=== PATIENT | male | born 1960 | race Caucasian/White ===

== ENCOUNTER 2018-03-29 18:16 | Inpatient (IN) | payer BC ==
[~2018-03-29] VITALS: Ht 175.3 cm; Wt 94.4 kg
[~2018-03-29 18:16] MED LIST: NO HOME MEDS
[2018-03-29] MEDS ORDERED: normal saline 1000ML IV soln IVB ONE (19:50)
[2018-03-29 20:35] LABS: ALANINE AMINOTRANSFERASE 21 U/L (12-78); ALBUMIN 2.5 G/DL (3.4-5.0); ALBUMIN/GLOBULIN RATIO 0.7 (1.1-1.5); ALKALINE PHOSPHATASE 100 IU/L (46-116); ANION GAP 5 (8-16); ASPARTATE AMINO TRANSFERASE 19 U/L (10-37); BASOPHILS # (AUTO) 0.1 X10'3 (0-0.2); BASOPHILS % (AUTO) 0.5 % (0-1); BILIRUBIN,TOTAL 0.1 MG/DL (0.1-1.0); BLOOD UREA NITROGEN 44 MG/DL (7-18); BUN/CREATININE RATIO 21.7 (5.4-32.0); CALCIUM 8.1 MG/DL (8.5-10.1); CHLORIDE 106 MMOL/L (99-107); CREATININE 2.03 MG/DL (0.60-1.10); EOSINOPHILS # (AUTO) 0.4 X10'3 (0-0.9); EOSINOPHILS % (AUTO) 3.5 % (0-6); GLUCOSE 99 MG/DL (70-104); HEMATOCRIT 22.5 % (42.0-52.0); HEMOGLOBIN 7.3 g/dl (14.0-17.9); LYMPHOCYTES # (AUTO) 1.3 X10'3 (1.1-4.8); LYMPHOCYTES % (AUTO) 11.1 % (21-51); MEAN CORPUSCULAR HEMOGLOBIN 26.6 PG (27.0-31.0); MEAN CORPUSCULAR HGB CONC 32.4 % (33.0-36.5); MEAN CORPUSCULAR VOLUME 82.2 FL (78-98); MEAN PLATELET VOLUME 7.2 FL (7.4-10.4); MONOCYTES # (AUTO) 0.7 X10'3 (0-0.9); NEUTROPHILS # (AUTO) 9.2 X10'3 (1.8-7.7); NEUTROPHILS % (AUTO) 78.9 % (42-75); PLATELET COUNT 416 X10'3 (140-440); POTASSIUM 4.9 MMOL/L (3.5-5.1); RED BLOOD COUNT 2.74 X10'6 (4.70-6.10); RED CELL DISTRIBUTION WIDTH 23.8 % (11.5-14.5); SODIUM 139 MMOL/L (135-145); TOTAL CARBON DIOXIDE 28.4 MMOL/L (24-32); TOTAL PROTEIN 6.1 G/DL (6.4-8.2); WHITE BLOOD COUNT 11.7 X10'3 (4.5-11.0); eGFR 34 ML/MIN
[2018-03-29] MEDS ORDERED: magnesium hydroxide 30ml (MOM) UD suspension PO PRN (21:30)
[2018-03-29] MEDS ORDERED: mag hydrox/Alum hydrox/simeth 30ml oral suspension PO PRN (21:30)
[2018-03-29] MEDS ORDERED: ondansetron/PF 4mg/2ml inj IV PRN (21:30)
[2018-03-29] MEDS ORDERED: oxyCODONE IR 5mg (immed. release) tablet PO PRN (21:35)
[2018-03-29] MEDS ORDERED: MV-M1TAB2 PO (21:41)
[2018-03-29] MEDS ORDERED: ASCO125T PO (21:41)
[2018-03-29] MEDS ORDERED: TEMA15CA PO (21:41)
[2018-03-29] MEDS ORDERED: APIX5TAB3 PO (21:41)
[2018-03-29] MEDS ORDERED: SULF1TAB49 PO (21:41)
[2018-03-29] MEDS ORDERED: FERR325T28 PO (21:41)
[2018-03-29] MEDS ORDERED: temazepam 15mg capsule PO PRN (21:55)
[2018-03-29] MEDS: normal saline 1000ml 1,000 ML IV SCH (23:03)
[2018-03-30] VITALS (11 sets, daily range): BP systolic 98–121; BP diastolic 53–76
[2018-03-30 05:24] LABS: ANISOCYTOSIS 3+; PLATELET ESTIMATE NORMAL; TOTAL CELLS COUNTED 100
[2018-03-30 05:25] LABS: ELLIPTOCYTES 1+; TEAR DROP CELLS FEW
[2018-03-30 06:12] LABS: BASOPHILS # (AUTO) 0.1 X10'3 (0-0.2); BASOPHILS % (AUTO) 0.6 % (0-1); EOSINOPHILS # (AUTO) 0.4 X10'3 (0-0.9); EOSINOPHILS % (AUTO) 3.9 % (0-6); LYMPHOCYTES # (AUTO) 1.4 X10'3 (1.1-4.8); LYMPHOCYTES % (AUTO) 13.6 % (21-51); MEAN CORPUSCULAR HEMOGLOBIN 26.6 PG (27.0-31.0); MEAN CORPUSCULAR HGB CONC 32.2 % (33.0-36.5); MEAN CORPUSCULAR VOLUME 82.4 FL (78-98); MEAN PLATELET VOLUME 7.1 FL (7.4-10.4); MONOCYTES # (AUTO) 0.7 X10'3 (0-0.9); MONOCYTES % (AUTO) 6.4 % (2-12); NEUTROPHILS # (AUTO) 7.8 X10'3 (1.8-7.7); NEUTROPHILS % (AUTO) 75.5 % (42-75); PLATELET COUNT 394 X10'3 (140-440); RED BLOOD COUNT 2.63 X10'6 (4.70-6.10); RED CELL DISTRIBUTION WIDTH 24.2 % (11.5-14.5); WHITE BLOOD COUNT 10.3 X10'3 (4.5-11.0)
[2018-03-30 06:29] LABS: ALANINE AMINOTRANSFERASE 24 U/L (12-78); ALBUMIN 2.4 G/DL (3.4-5.0); ALBUMIN/GLOBULIN RATIO 0.7 (1.1-1.5); ALKALINE PHOSPHATASE 86 IU/L (46-116); ANION GAP 8 (8-16); ASPARTATE AMINO TRANSFERASE 20 U/L (10-37); BILIRUBIN,TOTAL 0.3 MG/DL (0.1-1.0); BLOOD UREA NITROGEN 38 MG/DL (7-18); BUN/CREATININE RATIO 20.2 (5.4-32.0); CALCIUM 8.3 MG/DL (8.5-10.1); CHLORIDE 109 MMOL/L (99-107); CREATININE 1.88 MG/DL (0.60-1.10); GLUCOSE 88 MG/DL (70-104); POTASSIUM 4.2 MMOL/L (3.5-5.1); SODIUM 144 MMOL/L (135-145); TOTAL CARBON DIOXIDE 27.1 MMOL/L (24-32); TOTAL PROTEIN 5.8 G/DL (6.4-8.2); eGFR 37 ML/MIN
[2018-03-30 06:30] LABS: HEMATOCRIT 21.7 % (42.0-52.0)
[2018-03-30] MEDS: sulfamethoxazole/trimethoprim DS (800/160mg) tablet PO SCH ×2 (16:22→19:10)
[2018-03-30] MEDS: multivitamins, therapeutics tablet PO SCH (16:22)
[2018-03-30] MEDS: ascorbic acid 500mg tablet PO SCH (16:22)
[2018-03-30] MEDS: ferrous sulfate 325mg tablet PO SCH ×2 (16:22→17:30)
[2018-03-30] MEDS: normal saline 1000ml 1,000 ML IV SCH (16:23)
[2018-03-30] MEDS: lactobacillus rhamnosus 10,000 MMU CELLS/CAPSULE PO SCH (19:12)
[2018-03-30 19:35] LABS: CLARITY,URINE CLEAR (Clear); COLOR,URINE YELLOW (Yellow); GLUCOSE, URINE NEGATIVE (Neg); KETONES,URINE NEGATIVE (Neg); LEUKOCYTE ESTERASE ,URINE NEGATIVE (Neg); NITRITES, URINE NEGATIVE (Neg); OCCULT BLOOD,URINE SMALL (Neg); PH,URINE 5.5 (4.8-8.0); PROTEIN,URINE NEGATIVE (Neg); UROBILINOGEN,URINE 0.2 E.U/dL (0.2-1.0)
[2018-03-30 19:36] LABS: UA COLLECTION TYPE CLN CATCH MIDSTREAM
[2018-03-30 19:50] LABS: BACTERIA,URINE NONE SEEN /HPF (Neg); MUCUS STRANDS FEW /LPF (Neg); RBC,URINE 0-2 /HPF (0-2); SQUAMOUS EPITHELIAL CELL,UR FEW /LPF (FEW); WBC,URINE 0-4 /HPF (0-4)
[2018-03-31 06:31] LABS: ALANINE AMINOTRANSFERASE 22 U/L (12-78); ALBUMIN 2.4 G/DL (3.4-5.0); ALBUMIN/GLOBULIN RATIO 0.7 (1.1-1.5); ALKALINE PHOSPHATASE 83 IU/L (46-116); ANION GAP 5 (8-16); ASPARTATE AMINO TRANSFERASE 17 U/L (10-37); BILIRUBIN,TOTAL 0.3 MG/DL (0.1-1.0); BLOOD UREA NITROGEN 29 MG/DL (7-18); BUN/CREATININE RATIO 17.5 (5.4-32.0); CHLORIDE 109 MMOL/L (99-107); CREATININE 1.66 MG/DL (0.60-1.10); GLUCOSE 103 MG/DL (70-104); POTASSIUM 4.2 MMOL/L (3.5-5.1); SODIUM 142 MMOL/L (135-145); TOTAL CARBON DIOXIDE 27.7 MMOL/L (24-32); eGFR 43 ML/MIN
[2018-03-31 06:39] LABS: BASOPHILS # (AUTO) 0.1 X10'3 (0-0.2); BASOPHILS % (AUTO) 0.6 % (0-1); EOSINOPHILS # (AUTO) 0.4 X10'3 (0-0.9); EOSINOPHILS % (AUTO) 4.2 % (0-6); HEMATOCRIT 27.2 % (42.0-52.0); HEMOGLOBIN 8.7 g/dl (14.0-17.9); LYMPHOCYTES # (AUTO) 1.1 X10'3 (1.1-4.8); LYMPHOCYTES % (AUTO) 11.5 % (21-51); MEAN CORPUSCULAR HEMOGLOBIN 27.1 PG (27.0-31.0); MEAN CORPUSCULAR HGB CONC 32.1 % (33.0-36.5); MEAN CORPUSCULAR VOLUME 84.3 FL (78-98); MEAN PLATELET VOLUME 7.6 FL (7.4-10.4); MONOCYTES # (AUTO) 0.6 X10'3 (0-0.9); MONOCYTES % (AUTO) 6.5 % (2-12); NEUTROPHILS # (AUTO) 7.7 X10'3 (1.8-7.7); NEUTROPHILS % (AUTO) 77.2 % (42-75); PLATELET COUNT 375 X10'3 (140-440); RED BLOOD COUNT 3.23 X10'6 (4.70-6.10); WHITE BLOOD COUNT 9.9 X10'3 (4.5-11.0)
[2018-03-31] MEDS: normal saline 1000ml 1,000 ML IV SCH (06:50)
[2018-03-31] MEDS: ferrous sulfate 325mg tablet PO SCH ×2 (09:31→17:30)
[2018-03-31] MEDS: lactobacillus rhamnosus 10,000 MMU CELLS/CAPSULE PO SCH ×2 (09:31→20:30)
[2018-03-31] MEDS: multivitamins, therapeutics tablet PO SCH (09:31)
[2018-03-31] MEDS: sulfamethoxazole/trimethoprim DS (800/160mg) tablet PO SCH ×2 (09:31→20:30)
[2018-03-31] MEDS: levoFLOXACIN-Levaquin 250mg/D5 50 ML IV SCH (09:32)
[2018-03-31] MEDS: ascorbic acid 500mg tablet PO SCH (09:33)
[2018-03-31] MEDS: proCHLORperazine 10 MG/2 ml inj IV PRN ×2 (15:51→21:33)
[2018-03-31 18:00] VITALS: BP 106/67
[2018-03-31 22:00] VITALS: BP 107/63
[2018-04-01] MEDS: normal saline 1000ml 1,000 ML IV SCH (02:14)
[2018-04-01 05:41] LABS: BASOPHILS % (AUTO) 0.6 % (0-1); EOSINOPHILS # (AUTO) 0.3 X10'3 (0-0.9); EOSINOPHILS % (AUTO) 3.5 % (0-6); HEMATOCRIT 26.1 % (42.0-52.0); HEMOGLOBIN 8.6 g/dl (14.0-17.9); LYMPHOCYTES # (AUTO) 1.2 X10'3 (1.1-4.8); LYMPHOCYTES % (AUTO) 13.9 % (21-51); MEAN CORPUSCULAR HEMOGLOBIN 27.6 PG (27.0-31.0); MEAN CORPUSCULAR HGB CONC 32.8 % (33.0-36.5); MEAN CORPUSCULAR VOLUME 84.3 FL (78-98); MEAN PLATELET VOLUME 7.1 FL (7.4-10.4); MONOCYTES # (AUTO) 0.6 X10'3 (0-0.9); MONOCYTES % (AUTO) 7.4 % (2-12); NEUTROPHILS # (AUTO) 6.3 X10'3 (1.8-7.7); NEUTROPHILS % (AUTO) 74.6 % (42-75); PLATELET COUNT 371 X10'3 (140-440); RED CELL DISTRIBUTION WIDTH 21.2 % (11.5-14.5); WHITE BLOOD COUNT 8.5 X10'3 (4.5-11.0)
[2018-04-01 05:49] LABS: ALANINE AMINOTRANSFERASE 20 U/L (12-78); ALBUMIN 2.5 G/DL (3.4-5.0); ALBUMIN/GLOBULIN RATIO 0.7 (1.1-1.5); ALKALINE PHOSPHATASE 73 IU/L (46-116); ANION GAP 8 (8-16); ASPARTATE AMINO TRANSFERASE 17 U/L (10-37); BILIRUBIN,TOTAL 0.2 MG/DL (0.1-1.0); BLOOD UREA NITROGEN 22 MG/DL (7-18); BUN/CREATININE RATIO 13.1 (5.4-32.0); CHLORIDE 109 MMOL/L (99-107); CREATININE 1.68 MG/DL (0.60-1.10); GLUCOSE 97 MG/DL (70-104); POTASSIUM 4.1 MMOL/L (3.5-5.1); SODIUM 144 MMOL/L (135-145); TOTAL CARBON DIOXIDE 27.3 MMOL/L (24-32); eGFR 43 ML/MIN
[2018-04-01 06:00] VITALS: BP 108/73
[2018-04-01] MEDS: lactobacillus rhamnosus 10,000 MMU CELLS/CAPSULE PO SCH (08:00)
[2018-04-01] MEDS: levoFLOXACIN-Levaquin 250mg/D5 50 ML IV SCH (09:02)
[2018-04-01] MEDS: multivitamins, therapeutics tablet PO SCH (09:02)
[2018-04-01] MEDS: ascorbic acid 500mg tablet PO SCH (09:03)
[2018-04-01] MEDS: sulfamethoxazole/trimethoprim DS (800/160mg) tablet PO SCH (09:03)
[2018-04-01] MEDS: ferrous sulfate 325mg tablet PO SCH (09:03)
[2018-04-01 10:00] VITALS: BP 116/65
== END 2018-04-01 13:45 | disposition home health service (06) | DRG 603 ==
LOC: ER 18:17 → ED HOLD 21:30 → ORTHO 4S 03-30 08:00
PROVIDERS: ADMIT Internal Medicine; ATTEND Family Medicine
PROC: 30233N1 Transfusion of Nonautologous Red Blood Cells into Peripheral Vein, Percutaneous Approach (ICD-10-PCS; principal; 2018-03-30)
DX: L03.317 Cellulitis of buttock (principal); D64.9 Anemia, unspecified; E86.0 Dehydration; I12.9 Hypertensive chronic kidney disease with stage 1 through stage 4 chronic kidney disease, or unspecified chronic kidney disease; N18.9 Chronic kidney disease, unspecified; Z86.718 Personal history of other venous thrombosis and embolism; Z88.6 Allergy status to analgesic agent; Z88.8 Allergy status to other drugs, medicaments and biological substances; Z88.7 Allergy status to serum and vaccine; Z88.0 Allergy status to penicillin; Z93.3 Colostomy status; Z79.899 Other long term (current) drug therapy; Z79.01 Long term (current) use of anticoagulants; Z79.82 Long term (current) use of aspirin
CPT/HCPCS: 36415; 72192; 80053; 81001; 85025; 85651; 86140; 86885; 86900; 86901; 86920; 87070; 96360; 96361; 99285; A6253; A6449; J0780; J1956; J2405; J7030; P9016

== ENCOUNTER 2018-12-23 09:54 | Emergency (ER) | payer BC, OTHER ==
[~2018-12-23] VITALS: Ht 175.3 cm; Wt 113.6 kg
[~2018-12-23 09:54] MED LIST changes: +APIX5TAB3 PO; +ASCO125T PO; +FERR325T28 PO; +MV-M1TAB2 PO; -NO HOME MEDS; +TEMA15CA PO
[2018-12-23 10:03] VITALS: BP 166/98
[2018-12-23] MEDS ORDERED: orphenadrine citrate 60mg/2ml inj. IM ONE (11:35)
[2018-12-23] MEDS ORDERED: ketorolac tromethamine 15mg/ml inj. IM ONE (11:35)
[2018-12-23] MEDS ORDERED: IBUP-1985 PO (11:39)
[2018-12-23] MEDS ORDERED: METH-360 PO (11:39)
== END 2018-12-23 12:13 | disposition home or self-care (01) ==
LOC: ER 09:54
DX: S29.012A Strain of muscle and tendon of back wall of thorax, initial encounter (principal); M79.644 Pain in right finger(s); I10 Essential (primary) hypertension; Z88.1 Allergy status to other antibiotic agents; Z88.0 Allergy status to penicillin; Z88.5 Allergy status to narcotic agent; Z88.6 Allergy status to analgesic agent; Z88.8 Allergy status to other drugs, medicaments and biological substances; Z79.899 Other long term (current) drug therapy; W07.XXXA Fall from chair, initial encounter; Y93.89 Activity, other specified; Y92.89 Other specified places as the place of occurrence of the external cause; Y99.8 Other external cause status
CPT/HCPCS: 96372; 99284; J1885; J2360

== ENCOUNTER 2020-03-06 14:57 | Inpatient (IN) | payer BC ==
[~2020-03-06] VITALS: Ht 175.3 cm; Wt 119.2 kg
[~2020-03-06 14:57] MED LIST changes: -APIX5TAB3 PO; -ASCO125T PO; +CARV25TA2 PO; -FERR325T28 PO; +LISI-600 PO; +MULT1TAB74 PO; -MV-M1TAB2 PO; -TEMA15CA PO
[2020-03-06 16:32] LABS: BASOPHILS # (AUTO) 0.1 X10'3 (0-0.2); HEMATOCRIT 31.5 % (42.0-52.0); HEMOGLOBIN 9.9 g/dl (14.0-17.9); MEAN CORPUSCULAR HEMOGLOBIN 22.3 PG (27.0-31.0); MEAN PLATELET VOLUME 6.6 FL (7.4-10.4); NEUTROPHILS # (AUTO) 13.4 X10'3 (1.8-7.7)
[2020-03-06 16:33] LABS: ALANINE AMINOTRANSFERASE 7 U/L (12-78); ALBUMIN 2.3 G/DL (3.4-5.0); ALBUMIN/GLOBULIN RATIO 0.4 (1.1-1.5); ALKALINE PHOSPHATASE 98 IU/L (46-116); ANION GAP 27 (8-16); ASPARTATE AMINO TRANSFERASE 6 U/L (10-37); BASOPHILS % (AUTO) 0.5 % (0-1); BILIRUBIN,TOTAL 0.3 MG/DL (0.1-1.0); BLOOD UREA NITROGEN 110 MG/DL (7-18); BUN/CREATININE RATIO 6.2 (5.4-32.0); CALCIUM 8.3 MG/DL (8.5-10.1); CHLORIDE 94 MMOL/L (99-107); CREATININE 17.79 MG/DL (0.60-1.10); EOSINOPHILS # (AUTO) 0.1 X10'3 (0-0.9); EOSINOPHILS % (AUTO) 0.7 % (0-6); GLUCOSE 139 MG/DL (70-104); LYMPHOCYTES # (AUTO) 1.5 X10'3 (1.1-4.8); LYMPHOCYTES % (AUTO) 9.4 % (21-51); MEAN CORPUSCULAR HGB CONC 31.3 g/dL (33.0-36.5); MEAN CORPUSCULAR VOLUME 71.3 FL (78-98); MONOCYTES % (AUTO) 6.4 % (2-12); PLATELET COUNT 626 X10'3 (140-440); POTASSIUM 3.2 MMOL/L (3.5-5.1); RED BLOOD COUNT 4.42 X10'6 (4.70-6.10); RED CELL DISTRIBUTION WIDTH 22.7 % (11.5-14.5); SODIUM 135 MMOL/L (135-145); TOTAL PROTEIN 8.3 G/DL (6.4-8.2); WHITE BLOOD COUNT 16.2 X10'3 (4.5-11.0); eGFR 3 ML/MIN
[2020-03-06 16:35] LABS: TOTAL CARBON DIOXIDE 14.1 MMOL/L (24-32)
[2020-03-06 16:54] LABS: ANISOCYTOSIS 3+; ELLIPTOCYTES FEW; HYPOCHROMASIA 1+; MICROCYTOSIS 1+; PLATELET ESTIMATE INCREASED; POLYCHROMASIA FEW; TEAR DROP CELLS FEW
[2020-03-06 16:55] LABS: BURR CELLS FEW
[2020-03-06] MEDS ORDERED: MEROPENEM 1GM/NS 50ML IVPB 50 ML IV STA (16:57)
[2020-03-06] MEDS ORDERED: normal saline 1000ML IV soln IV ONE (17:00)
[2020-03-06] MEDS ORDERED: vancomycin/NS 1 GM ADD-VANTAGE 250 ML IV ONE (17:00)
[2020-03-06] MEDS ORDERED: diatr meglu/diatrizoate 30ml oral sol.-(3 dose) bottle ONE (17:00)
[2020-03-06 18:50] LABS: ABG BASE EXCESS -16.2 mmol/L (-2.0-3.0); ABG HCO3 10.8 mmol/L (22.0-26.0); ABG OXYGEN SATURATION 93.7 % (95-98); ABG PCO2 (T) 29.5 mmHg (35.0-45.0); ABG PH (T) 7.181 (7.350-7.450); ABG PO2 (T) 85.2 mmHg (83-108); FCOHb 0.3 % (0.5-1.5); FMetHb 0.3 % (0.3-1.12); FO2Hb 93.1 % (94-100); PATIENT TEMPERATURE 36.8; TOTAL HEMOGLOBIN 9.2 G/dl (14.0-17.9)
[2020-03-06] MEDS ORDERED: CARV6.253 PO (19:30)
[2020-03-06 20:30] LABS: LACTATE DEHYDROGENASE 102 U/L (85-227)
[2020-03-06] MEDS ORDERED: ondansetron/PF 4mg/2ml inj IV ONE (21:05)
[2020-03-06] MEDS ORDERED: LIDOcaine 2% 10ml TOPICAL JELLY (Urojet) TP ONE (21:25)
[2020-03-06] MEDS ORDERED: acetaminophen 325mg tablet PO PRN (21:25)
[2020-03-06 21:28] LABS: CLARITY,URINE CLOUDY (Clear); COLOR,URINE YELLOW (Yellow); GLUCOSE, URINE NEGATIVE (Neg); KETONES,URINE TRACE mg/dl (Neg); LEUKOCYTE ESTERASE ,URINE TRACE (Neg); NITRITES, URINE NEGATIVE (Neg); OCCULT BLOOD,URINE LARGE (Neg); PROTEIN,URINE 100 mg/dl (Neg); UROBILINOGEN,URINE 0.2 E.U/dL (0.2-1.0)
[2020-03-06 21:29] LABS: UA COLLECTION TYPE FOLEY CATH
[2020-03-06 21:34] LABS: AMORPHOUS URATES 1+; BACTERIA,URINE FEW /HPF (Neg); RBC,URINE 50-100 /HPF (0-2); SQUAMOUS EPITHELIAL CELL,UR FEW /LPF (FEW); WBC,URINE 0-4 /HPF (0-4)
[2020-03-06] MEDS: sodium bicarbonate (8.4%) inj. 75 MEQ in dextrose 5% water 500ml 500 ML IV SCH (22:02)
[2020-03-06 22:07] LABS: ALBUMIN 1.9 G/DL (3.4-5.0); ALBUMIN/GLOBULIN RATIO 0.4 (1.1-1.5); ALKALINE PHOSPHATASE 87 IU/L (46-116); ANION GAP 22 (8-16); ASPARTATE AMINO TRANSFERASE 5 U/L (10-37); BILIRUBIN,TOTAL 0.2 MG/DL (0.1-1.0); BLOOD UREA NITROGEN 98 MG/DL (7-18); BUN/CREATININE RATIO 6.3 (5.4-32.0); CALCIUM 7.3 MG/DL (8.5-10.1); CHLORIDE 101 MMOL/L (99-107); CREATININE 15.48 MG/DL (0.60-1.10); GLUCOSE 110 MG/DL (70-104); POTASSIUM 3.2 MMOL/L (3.5-5.1); SODIUM 138 MMOL/L (135-145); TOTAL CARBON DIOXIDE 15.1 MMOL/L (24-32); TOTAL PROTEIN 7.1 G/DL (6.4-8.2); eGFR 3 ML/MIN
[2020-03-06 22:09] LABS: ALANINE AMINOTRANSFERASE < 6 U/L (12-78)
--- NOTE | 2020-03-06 22:11 | NUR ---
Patient in room ED 1. I have received report from anneliese frank and had the opportunity to ask questions and assume patient care.
--- NOTE | 2020-03-06 22:45 | NUR ---
pt transferred to be 2007. pt is A&O x 4.pt reports multiple bouts of diarrhea. pt oriented to bed, call light, and tv. pt verbalised understanding. pt educated on fall risk prevention and was instructed to press the call button if he needs to get out of bed. pt verbalized understanding. pt reported that he would like his wallet and keys in the safe. admitting contacted.
[2020-03-06 23:00] VITALS: BP 80/55
--- NOTE | 2020-03-06 23:00 | NUR ---
pt has stooled 3 times in 15 min. stool sample taken. pt noncompliant with calling before getting up to the commode. reeducated bronc buster don't fall policy. pt states he's not going to fall however pt bp is low. service captain martin notified of low bp- orders received.
[2020-03-06] MEDS ORDERED: albumin (Human) 5% 250ml 250 ML IV ONE (23:40)
[2020-03-07] VITALS (24 sets, daily range): BP systolic 77–148; BP diastolic 33–80
[2020-03-07 00:13] LABS: TOTAL PROTEIN,URINE RANDOM 317.8 MG/DL
--- NOTE | 2020-03-07 00:23 | NUR ---
pt remains noncompliant with not calling before getting out of bed. sitter now at bedside
[2020-03-07] MEDS ORDERED: normal saline 1000ml 1,000 ML IVB ONE (00:31)
[2020-03-07 00:44] LABS: UA EOSINOPHILS NO EOS /HPF
[2020-03-07] MEDS: metroNIDAZOLE-Flagyl 500mg/NS 100 ML IV SCH ×4 (00:56→23:17)
[2020-03-07] MEDS: sodium bicarbonate (8.4%) inj. 75 MEQ in dextrose 5% water 500ml 500 ML IV SCH ×2 (01:05→04:03)
[2020-03-07] MEDS ORDERED: hydrocortisone sod succ/PF 100mg/2ml inj. IV ONE (01:25)
[2020-03-07] MEDS ORDERED: albumin (Human) 5% 250ml 500 ML IV ONE (01:46)
[2020-03-07] MEDS ORDERED: albumin (Human) 5% 250ml 250 ML IV ONE ×2 (01:50)
[2020-03-07 02:48] LABS: OCCULT BLOOD STOOL NEGATIVE (Neg)
[2020-03-07] MEDS ORDERED: normal saline 1000ml 1,000 ML IV ONE (04:05)
[2020-03-07] MEDS ORDERED: normal saline 500ml IV soln 1,000 ML IV ONE (04:15)
[2020-03-07 05:08] LABS: BASOPHILS % (AUTO) 0.2 % (0-1); EOSINOPHILS % (AUTO) 0.4 % (0-6); LYMPHOCYTES # (AUTO) 0.4 X10'3 (1.1-4.8); LYMPHOCYTES % (AUTO) 3.8 % (21-51); MEAN CORPUSCULAR HEMOGLOBIN 22.4 PG (27.0-31.0); MEAN CORPUSCULAR VOLUME 72.2 FL (78-98); MEAN PLATELET VOLUME 6.7 FL (7.4-10.4); MONOCYTES # (AUTO) 0.3 X10'3 (0-0.9); MONOCYTES % (AUTO) 2.5 % (2-12); NEUTROPHILS # (AUTO) 10.2 X10'3 (1.8-7.7); NEUTROPHILS % (AUTO) 93.1 % (42-75); PLATELET COUNT 421 X10'3 (140-440); RED BLOOD COUNT 3.59 X10'6 (4.70-6.10); RED CELL DISTRIBUTION WIDTH 22.6 % (11.5-14.5); WHITE BLOOD COUNT 10.9 X10'3 (4.5-11.0)
[2020-03-07] MEDS: NORepinephrine 8mg/ 250ml NS 250 ML IV PRN (05:11)
[2020-03-07] MEDS: hydrocortisone sod succ/PF 100mg/2ml inj. IV SCH ×3 (05:11→18:48)
[2020-03-07 05:21] LABS: PARTIAL THROMBOPLASTIN TIME 31 SECONDS (22-32)
[2020-03-07 05:39] LABS: ALANINE AMINOTRANSFERASE 7 U/L (12-78); ALBUMIN 2.1 G/DL (3.4-5.0); ALBUMIN/GLOBULIN RATIO 0.5 (1.1-1.5); ALKALINE PHOSPHATASE 74 IU/L (46-116); ANION GAP 22 (8-16); ASPARTATE AMINO TRANSFERASE 6 U/L (10-37); BILIRUBIN,TOTAL 0.2 MG/DL (0.1-1.0); BLOOD UREA NITROGEN 98 MG/DL (7-18); BUN/CREATININE RATIO 7.3 (5.4-32.0); CALCIUM 6.9 MG/DL (8.5-10.1); CHLORIDE 104 MMOL/L (99-107); CREATININE 13.45 MG/DL (0.60-1.10); GLUCOSE 118 MG/DL (70-104); MAGNESIUM 1.9 MG/DL (1.5-2.4); POTASSIUM 3.1 MMOL/L (3.5-5.1); SODIUM 140 MMOL/L (135-145); TOTAL PROTEIN 6.5 G/DL (6.4-8.2); eGFR 4 ML/MIN
[2020-03-07 05:45] LABS: PHOSPHORUS 10.9 MG/DL (2.3-4.5)
--- NOTE | 2020-03-07 05:46 | NUR ---
md camarillo placed central line in right groin
[2020-03-07 05:48] LABS: TOTAL CARBON DIOXIDE 13.8 MMOL/L (24-32)
--- NOTE | 2020-03-07 06:47 | NUR ---
Patient in room CICU 2007. I have received report from YESSY CABA and had the opportunity to ask questions and assume patient care.
[2020-03-07] MEDS: multivitamins, therapeutics tablet PO SCH (08:00)
[2020-03-07] MEDS: pantoprazole 40 MG vial IV SCH (08:22)
[2020-03-07] MEDS: levoFLOXACIN-Levaquin 250mg/D5 50 ML IV SCH (08:24)
[2020-03-07] MEDS: heparin, porcine 5000 units/ml vial SQ SCH ×2 (08:39→19:22)
[2020-03-07 08:41] LABS: ALBUMIN 2.2 G/DL (3.4-5.0); ANION GAP 20 (8-16); BLOOD UREA NITROGEN 98 MG/DL (7-18); CHLORIDE 104 MMOL/L (99-107); CREATININE 12.26 MG/DL (0.60-1.10); GLUCOSE 189 MG/DL (70-104); SODIUM 140 MMOL/L (135-145); eGFR 4 ML/MIN
[2020-03-07 08:43] LABS: PHOSPHORUS 10.1 MG/DL (2.3-4.5)
[2020-03-07 11:02] LABS: C DIFF ANTIGEN NEGATIVE (NEGATIVE); C DIFF SPECIMEN=DIARRHEA? ACCEPTABLE; C DIFFICILE TOXINS A&B NEGATIVE (Neg)
--- NOTE | 2020-03-07 15:39 | NUR ---
Initial: Pt admit w/ sepsis, MADDY, dehydration, and metabolic acidosis. 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 Per CT: dilated transverse colon, dilated air-filled small bowel, possible ileus, possible chronic UC of sigmoid colon and rectum, cholelithiasis, and stone in urinary bladder. Pt remains NPO at this time; LBM 5/3. Pt last admit in June 2019 received bananas w/ meals to help decrease diarrhea and pt did not like cream of wheat or oatmeal only wanting yogurt TID. Will monitor for PO diet advancement and tolerance. Pt denies hx UC; would benefit from low-residue diet ed once stable prior to discharge if truly UC DX. Rec: 1. advance diet as medically indicated to low-residue 2. monitor for ONS needs once PO 3. honor pt food preferences once diet advances 4. weekly wts 5. UC diet ed if new DX this admit once stable prior to discharge Addendum: 03/07/20 at [address] Amended: Links added.
[2020-03-07] MEDS: sodium bicarbonate (8.4%) inj. 100 MEQ in dextrose 5%-water 1,000 ML IV SCH ×2 (15:56→23:17)
[2020-03-07] MEDS ORDERED: potassium Cl 20 mEq SR tablet PO PRN ×2 (17:05)
[2020-03-07] MEDS ORDERED: K and/or MAG REPLACEMENT MC SCH (17:05)
[2020-03-07 17:28] LABS: ALBUMIN 2.1 G/DL (3.4-5.0); ANION GAP 19 (8-16); BLOOD UREA NITROGEN 95 MG/DL (7-18); BUN/CREATININE RATIO 10.1 (5.4-32.0); CALCIUM 6.9 MG/DL (8.5-10.1); CHLORIDE 106 MMOL/L (99-107); CREATININE 9.45 MG/DL (0.60-1.10); GLUCOSE 154 MG/DL (70-104); SODIUM 144 MMOL/L (135-145); TOTAL CARBON DIOXIDE 18.6 MMOL/L (24-32); eGFR 6 ML/MIN
--- NOTE | 2020-03-07 17:30 | NUR ---
NOTIFIED OF CRITICAL POTASSIUM OF 2.7
[2020-03-07 17:31] LABS: PHOSPHORUS 10.2 MG/DL (2.3-4.5)
[2020-03-07 17:34] LABS: POTASSIUM 2.7 MMOL/L (3.5-5.1)
[2020-03-07] MEDS ORDERED: potassium Cl 20mEq/100mL bag 100 ML IV ONE (17:36)
--- NOTE | 2020-03-07 18:47 | NUR ---
Problems reprioritized. Patient report given, questions answered & plan of care reviewed with . YESSY GARZA
[2020-03-07] MEDS ORDERED: potassium CL 10mEq/100ml bag 100 ML IV PRN (19:05)
[2020-03-07] MEDS: K and/or MAG REPLACEMENT MC SCH (19:05)
[2020-03-07] MEDS: potassium Cl 20mEq/100mL bag 100 ML IV PRN (19:22)
[2020-03-07] MEDS: lactobacillus rhamnosus 10,000 MMU CELLS/CAPSULE PO SCH (20:00)
[2020-03-08] VITALS (21 sets, daily range): BP systolic 93–139; BP diastolic 48–80
[2020-03-08] MEDS: hydrocortisone sod succ/PF 100mg/2ml inj. IV SCH ×3 (00:46→11:29)
[2020-03-08] MEDS: NORepinephrine 8mg/ 250ml NS 250 ML IV PRN (00:46)
[2020-03-08 01:12] LABS: BASOPHILS % (AUTO) 0.2 % (0-1); EOSINOPHILS % (AUTO) 0 % (0-6); HEMATOCRIT 27.7 % (42.0-52.0); HEMOGLOBIN 8.6 g/dl (14.0-17.9); LYMPHOCYTES # (AUTO) 0.5 X10'3 (1.1-4.8); LYMPHOCYTES % (AUTO) 4.3 % (21-51); MEAN CORPUSCULAR HGB CONC 31.1 g/dL (33.0-36.5); MEAN CORPUSCULAR VOLUME 70.8 FL (78-98); MEAN PLATELET VOLUME 6.6 FL (7.4-10.4); MONOCYTES # (AUTO) 0.5 X10'3 (0-0.9); MONOCYTES % (AUTO) 3.8 % (2-12); NEUTROPHILS # (AUTO) 11.6 X10'3 (1.8-7.7); NEUTROPHILS % (AUTO) 91.7 % (42-75); PLATELET COUNT 446 X10'3 (140-440); RED BLOOD COUNT 3.91 X10'6 (4.70-6.10); RED CELL DISTRIBUTION WIDTH 22.7 % (11.5-14.5); WHITE BLOOD COUNT 12.6 X10'3 (4.5-11.0)
[2020-03-08 01:35] LABS: TOTAL CELLS COUNTED 100
[2020-03-08 01:36] LABS: ANISOCYTOSIS 1+; BURR CELLS 1+; ELLIPTOCYTES 1+; MICROCYTOSIS 1+; PLATELET ESTIMATE INCREASED
[2020-03-08 01:37] LABS: ALBUMIN/GLOBULIN RATIO 0.4 (1.1-1.5); ALKALINE PHOSPHATASE 70 IU/L (46-116); ANION GAP 16 (8-16); ASPARTATE AMINO TRANSFERASE 7 U/L (10-37); BILIRUBIN,TOTAL 0.2 MG/DL (0.1-1.0); BLOOD UREA NITROGEN 88 MG/DL (7-18); CALCIUM 7.3 MG/DL (8.5-10.1); CHLORIDE 107 MMOL/L (99-107); CREATININE 7.34 MG/DL (0.60-1.10); GLUCOSE 205 MG/DL (70-104); MAGNESIUM 1.8 MG/DL (1.5-2.4); PHOSPHORUS 8.6 MG/DL (2.3-4.5); SODIUM 144 MMOL/L (135-145); TOTAL CARBON DIOXIDE 21.3 MMOL/L (24-32); TOTAL PROTEIN 6.6 G/DL (6.4-8.2); TOXIC GRANULATION 2+; eGFR 8 ML/MIN
[2020-03-08 01:42] LABS: ALANINE AMINOTRANSFERASE < 6 U/L (12-78); POTASSIUM 2.6 MMOL/L (3.5-5.1)
[2020-03-08] MEDS: potassium Cl 20mEq/100mL bag 100 ML IV PRN ×6 (02:04→12:57)
[2020-03-08] MEDS: sodium bicarbonate (8.4%) inj. 100 MEQ in dextrose 5%-water 1,000 ML IV SCH ×3 (06:05→20:01)
--- NOTE | 2020-03-08 06:29 | NUR ---
Problems reprioritized. Patient report given, questions answered & plan of care reviewed with ART, RN.
[2020-03-08] MEDS: K and/or MAG REPLACEMENT MC SCH (08:00)
[2020-03-08] MEDS: ondansetron/PF 4mg/2ml inj IV PRN ×2 (08:08→16:51)
--- NOTE | 2020-03-08 08:51 | NUR ---
Pt to nuclear med with Aki winter
--- NOTE | 2020-03-08 09:37 | NUR ---
call from [facility]. pt is having back pain, request for morphine from . Orders in.
[2020-03-08] MEDS ORDERED: pneumococcal 23-VAL P-sac vacc 25 mcg/0.5ml vial IMVAC ONE (09:45)
[2020-03-08] MEDS: morphine 4 MG/ML inj SYRINge IM STA ×2 (09:50→09:52)
--- NOTE | 2020-03-08 09:52 | NUR ---
UPon arrival to [facility], pt refused morphine. He wants no narcotics.
[2020-03-08] MEDS: multivitamins, therapeutics tablet PO SCH (11:29)
[2020-03-08] MEDS: lactobacillus rhamnosus 10,000 MMU CELLS/CAPSULE PO SCH ×2 (11:29→20:00)
[2020-03-08] MEDS: pantoprazole 40 MG vial IV SCH (11:29)
[2020-03-08] MEDS: metroNIDAZOLE-Flagyl 500mg/NS 100 ML IV SCH ×3 (11:30→23:52)
[2020-03-08] MEDS: heparin, porcine 5000 units/ml vial SQ SCH ×2 (11:33→20:03)
--- NOTE | 2020-03-08 12:36 | NUR ---
Levophed turned off
[2020-03-08] MEDS ORDERED: bisacodyl 10mg suppository rectal RC STA (16:01)
[2020-03-08] MEDS ORDERED: mineral oil 133ml enema RC PRN (16:05)
[2020-03-08] MEDS: acetaminophen 325mg tablet PO PRN (17:50)
--- NOTE | 2020-03-08 19:01 | NUR ---
Patient in room CICU 2007. I have received report from Mukesh,RN and had the opportunity to ask questions and assume patient care. Patient very uncomfortable, reports abdominal pain and pressure /10. Helped him up to commode, no stool just mucus.
[2020-03-08] MEDS: NYSTATIN CREAM - 30GM TUBE TP SCH (20:00)
[2020-03-08] MEDS: neostigmine methylsulfate 1 MG/ML 10ml vial SQ SCH (20:01)
[2020-03-08] MEDS: proCHLORperazine 10 MG/2 ml inj IV PRN (20:52)
[2020-03-09] VITALS (8 sets, daily range): BP systolic 85–118; BP diastolic 49–75
--- NOTE | 2020-03-09 00:20 | NUR ---
Patient restless and anxious, refuses pain medication and keeps wanting to get up and down from bed to commode to chair. I cld NovemberEDMAR and requested something for anxiety. She will order Ativan 1mg IV now.
[2020-03-09] MEDS ORDERED: LORazepam 2 mg/ml vial IV ONE (01:05)
[2020-03-09 02:00] LABS: BASOPHILS # (AUTO) 0.1 X10'3 (0-0.2); BASOPHILS % (AUTO) 0.4 % (0-1); EOSINOPHILS # (AUTO) 0.1 X10'3 (0-0.9); EOSINOPHILS % (AUTO) 0.2 % (0-6); HEMATOCRIT 32.2 % (42.0-52.0); HEMOGLOBIN 10.2 g/dl (14.0-17.9); LYMPHOCYTES # (AUTO) 1.3 X10'3 (1.1-4.8); LYMPHOCYTES % (AUTO) 4.7 % (21-51); MEAN CORPUSCULAR HEMOGLOBIN 22.3 PG (27.0-31.0); MEAN CORPUSCULAR HGB CONC 31.7 g/dL (33.0-36.5); MEAN CORPUSCULAR VOLUME 70.3 FL (78-98); MEAN PLATELET VOLUME 6.3 FL (7.4-10.4); MONOCYTES # (AUTO) 1.7 X10'3 (0-0.9); MONOCYTES % (AUTO) 5.9 % (2-12); NEUTROPHILS # (AUTO) 25.2 X10'3 (1.8-7.7); NEUTROPHILS % (AUTO) 88.8 % (42-75); PLATELET COUNT 455 X10'3 (140-440); RED BLOOD COUNT 4.59 X10'6 (4.70-6.10); RED CELL DISTRIBUTION WIDTH 22.9 % (11.5-14.5)
[2020-03-09 02:01] LABS: WHITE BLOOD COUNT 28.4 X10'3 (4.5-11.0)
[2020-03-09 02:20] LABS: ALANINE AMINOTRANSFERASE 6 U/L (12-78); ALBUMIN 1.8 G/DL (3.4-5.0); ALBUMIN/GLOBULIN RATIO 0.4 (1.1-1.5); ALKALINE PHOSPHATASE 74 IU/L (46-116); ANION GAP 7 (8-16); ASPARTATE AMINO TRANSFERASE 13 U/L (10-37); BILIRUBIN,TOTAL 0.1 MG/DL (0.1-1.0); BLOOD UREA NITROGEN 77 MG/DL (7-18); BUN/CREATININE RATIO 20.2 (5.4-32.0); CHLORIDE 108 MMOL/L (99-107); CREATININE 3.82 MG/DL (0.60-1.10); GLUCOSE 219 MG/DL (70-104); MAGNESIUM 1.5 MG/DL (1.5-2.4); PHOSPHORUS 4.8 MG/DL (2.3-4.5); SODIUM 143 MMOL/L (135-145); TOTAL CARBON DIOXIDE 27.6 MMOL/L (24-32); TOTAL PROTEIN 6.1 G/DL (6.4-8.2); eGFR 16 ML/MIN
[2020-03-09 02:21] LABS: POTASSIUM 2.5 MMOL/L (3.5-5.1)
[2020-03-09 02:26] LABS: TOTAL CELLS COUNTED 100
[2020-03-09 02:27] LABS: ANISOCYTOSIS 2+; BURR CELLS 1+; MICROCYTOSIS 1+; PLATELET ESTIMATE INCREASED; POIKILOCYTOSIS 1+
[2020-03-09 02:28] LABS: TOXIC GRANULATION 1+
[2020-03-09] MEDS: potassium Cl 20mEq/100mL bag 100 ML IV PRN ×9 (02:42→22:24)
--- NOTE | 2020-03-09 03:10 | NUR ---
Patient complaining about abdominal discomfort and pressure, does not like to take pain meds. He refused NGT upon admit, I advised him this might help with some of the abdominal discomfort and her agreed to the placement of NGT. I cld EDMAR Hopper and she verbalized an order for NGT.
[2020-03-09] MEDS: sodium bicarbonate (8.4%) inj. 100 MEQ in dextrose 5%-water 1,000 ML IV SCH ×3 (03:27→19:49)
[2020-03-09] MEDS: proCHLORperazine 10 MG/2 ml inj IV PRN (04:01)
--- NOTE | 2020-03-09 05:10 | NUR ---
Problems reprioritized. Patient report given, questions answered & plan of care reviewed with YESSY Copeland.
--- NOTE | 2020-03-09 05:12 | NUR ---
Patient in room CICU 2007. I have received report from Analilia KRISHNAMURTHY and had the opportunity to ask questions and assume patient care.
--- NOTE | 2020-03-09 06:05 | NUR ---
Patient in room PCU 3014. I have received report from Dinorah KRISHNAMURTHY and had the opportunity to ask questions and assume patient care.
--- NOTE | 2020-03-09 06:33 | NUR ---
Problems reprioritized. Patient report given, questions answered & plan of care reviewed with Zoila KRISHNAMURTHY.
[2020-03-09] MEDS: acetaminophen 325mg tablet PO PRN (07:01)
--- NOTE | 2020-03-09 07:13 | NUR ---
Patient in room PCU 3014. I have received report from YESSY Paige and had the opportunity to ask questions and assume patient care. Patient currently resting in bed, bed locked and low, call light in reach, c/o pain will give meds as ordered, no acute distress, will continue to monitor.
--- NOTE | 2020-03-09 07:34 | NUR ---
cR Addendum: 03/09/20 at 0734 by Asya Hall RN Critical lab potassium 3.0. Notified primary RN Zoila.
[2020-03-09] MEDS: multivitamins, therapeutics tablet PO SCH (08:00)
[2020-03-09] MEDS: pantoprazole 40 MG vial IV SCH (08:49)
[2020-03-09] MEDS: heparin, porcine 5000 units/ml vial SQ SCH ×2 (08:50→19:50)
[2020-03-09] MEDS: metroNIDAZOLE-Flagyl 500mg/NS 100 ML IV SCH ×2 (08:50→15:56)
[2020-03-09] MEDS: lactobacillus rhamnosus 10,000 MMU CELLS/CAPSULE PO SCH ×2 (08:51→19:49)
[2020-03-09] MEDS: K and/or MAG REPLACEMENT MC SCH (08:51)
[2020-03-09] MEDS: levoFLOXACIN-Levaquin 250mg/D5 50 ML IV SCH (08:51)
[2020-03-09 09:36] LABS: CREATINE KINASE 17 U/L (39-308)
[2020-03-09] MEDS: neostigmine methylsulfate 1 MG/ML 10ml vial SQ SCH ×2 (12:00→20:26)
[2020-03-09] MEDS: NYSTATIN CREAM - 30GM TUBE TP SCH ×2 (12:00→19:49)
--- NOTE | 2020-03-09 12:33 | NUR ---
Reassessment: Pt remains NPO. Per KUB report: obstruction vs colonic pseudo-obstruction, Olgilvie's colon, moderate dilation to transverse colon, collapsed splenic flexure and sigmoid areas w/ normal descending colon and rectum. Pt pending gastrografin enema and may require colonoscopy for decompression if physically obstructed per MD note. Will need UC diet ed once more stable. LBM 5/5 x5 small liquid volumes per EMR. IF prolonged NPO at least 7 days anticipated w/ persistent ileus may benefit from PN. Will continue to monitor. Initial: Pt admit w/ sepsis, MADDY, dehydration, and metabolic acidosis. 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 Per CT: dilated transverse colon, dilated air-filled small bowel, possible ileus, possible chronic UC of sigmoid colon and rectum, cholelithiasis, and stone in urinary bladder. Pt remains NPO at this time; LBM 5/3. Pt last admit in June 2019 received bananas w/ meals to help decrease diarrhea and pt did not like cream of wheat or oatmeal only wanting yogurt TID. Will monitor for PO diet advancement and tolerance. Pt denies hx UC; would benefit from low-residue diet ed once stable prior to discharge if truly UC DX. Rec: 1. advance diet as medically indicated to low-residue 2. monitor for ONS needs once PO 3. honor pt food preferences once diet advances 4. weekly wts 5. UC diet ed once stable prior to discharge 6. IF prolonged NPO at least 7 days without return of GI function; consider PN to meet nutrient needs Addendum: 03/09/20 at [address] Amended: Links added.
[2020-03-09] MEDS ORDERED: neostigmine methylsulfate 1 MG/ML 10ml vial IV ONE (18:05)
--- NOTE | 2020-03-09 18:12 | NUR ---
Problems reprioritized. Patient report given, questions answered & plan of care reviewed with YESSY Ortiz.
--- NOTE | 2020-03-09 18:21 | NUR ---
Patient in room PCU 3014. I have received report from YESSY Cummings and had the opportunity to ask questions and assume patient care.
[2020-03-09] MEDS ORDERED: potassium CL 10mEq/100ml bag 100 ML IV PRN (21:20)
--- NOTE | 2020-03-09 21:51 | NUR ---
requesting a sleep med PAGER ID: [phone] MESSAGE: [phone] Johnnie Cervantes requesting a sleep med. Doesn't take any at home. Addendum: 03/10/20 at 0250 by Diana Tello RN MD put in order for benadryl 25mg IV once and the patient requested something else after 3 hours of it barely having an effect. Then Android Developer ordered Ativan 1mg IV once.
[2020-03-09] MEDS ORDERED: diphenhydrAMINE 50 mg/ml inj IV PRN (21:55)
[2020-03-10] MEDS ORDERED: LORazepam 2 mg/ml vial IV ONE (00:30)
[2020-03-10] MEDS: metroNIDAZOLE-Flagyl 500mg/NS 100 ML IV SCH ×3 (00:39→16:19)
[2020-03-10 02:00] VITALS: BP 124/77
[2020-03-10 03:16] LABS: BASOPHILS % (AUTO) 0.1 % (0-1); EOSINOPHILS # (AUTO) 0.1 X10'3 (0-0.9); EOSINOPHILS % (AUTO) 0.3 % (0-6); HEMATOCRIT 31.4 % (42.0-52.0); HEMOGLOBIN 9.7 g/dl (14.0-17.9); LYMPHOCYTES # (AUTO) 1.8 X10'3 (1.1-4.8); LYMPHOCYTES % (AUTO) 7.2 % (21-51); MEAN CORPUSCULAR HGB CONC 30.8 g/dL (33.0-36.5); MEAN CORPUSCULAR VOLUME 71.4 FL (78-98); MEAN PLATELET VOLUME 6.4 FL (7.4-10.4); MONOCYTES # (AUTO) 1.6 X10'3 (0-0.9); MONOCYTES % (AUTO) 6.3 % (2-12); NEUTROPHILS # (AUTO) 21.4 X10'3 (1.8-7.7); NEUTROPHILS % (AUTO) 86.1 % (42-75); PLATELET COUNT 408 X10'3 (140-440); RED BLOOD COUNT 4.39 X10'6 (4.70-6.10); RED CELL DISTRIBUTION WIDTH 22.6 % (11.5-14.5); WHITE BLOOD COUNT 24.9 X10'3 (4.5-11.0)
[2020-03-10 03:20] LABS: ALANINE AMINOTRANSFERASE 8 U/L (12-78); ALBUMIN 1.8 G/DL (3.4-5.0); ALBUMIN/GLOBULIN RATIO 0.4 (1.1-1.5); ALKALINE PHOSPHATASE 70 IU/L (46-116); ANION GAP 3 (8-16); ASPARTATE AMINO TRANSFERASE 16 U/L (10-37); BILIRUBIN,TOTAL 0.3 MG/DL (0.1-1.0); BLOOD UREA NITROGEN 54 MG/DL (7-18); BUN/CREATININE RATIO 27.8 (5.4-32.0); CALCIUM 8.6 MG/DL (8.5-10.1); CHLORIDE 108 MMOL/L (99-107); CREATININE 1.94 MG/DL (0.60-1.10); GLUCOSE 151 MG/DL (70-104); MAGNESIUM 1.4 MG/DL (1.5-2.4); PHOSPHORUS 2.5 MG/DL (2.3-4.5); POTASSIUM 3.3 MMOL/L (3.5-5.1); SODIUM 144 MMOL/L (135-145); TOTAL CARBON DIOXIDE 33.2 MMOL/L (24-32); eGFR 36 ML/MIN
[2020-03-10] MEDS: sodium bicarbonate (8.4%) inj. 100 MEQ in dextrose 5%-water 1,000 ML IV SCH (03:40)
[2020-03-10 04:04] LABS: TOTAL CELLS COUNTED 100
[2020-03-10 04:05] LABS: ANISOCYTOSIS 2+; ELLIPTOCYTES 1+; MICROCYTOSIS 1+; PLATELET ESTIMATE NORMAL
[2020-03-10] MEDS: potassium Cl 20mEq/100mL bag 100 ML IV PRN ×2 (04:06→09:46)
[2020-03-10 06:00] VITALS: BP 109/67
--- NOTE | 2020-03-10 06:26 | NUR ---
Problems reprioritized. Patient report given, questions answered & plan of care reviewed with YESSY Cummings.
--- NOTE | 2020-03-10 06:43 | NUR ---
Patient in room PCU 3014. I have received report from YESSY Ortiz and had the opportunity to ask questions and assume patient care. Patient currently sitting up in chair at bedside, no acute distress, will continue to monitor.
[2020-03-10] MEDS: K and/or MAG REPLACEMENT MC SCH (08:00)
[2020-03-10] MEDS: neostigmine methylsulfate 1 MG/ML 10ml vial SQ SCH ×2 (08:07→19:53)
[2020-03-10] MEDS: heparin, porcine 5000 units/ml vial SQ SCH ×2 (08:07→19:54)
[2020-03-10] MEDS: pantoprazole 40 MG vial IV SCH (08:08)
[2020-03-10] MEDS: multivitamins, therapeutics tablet PO SCH (08:08)
[2020-03-10] MEDS: lactobacillus rhamnosus 10,000 MMU CELLS/CAPSULE PO SCH ×2 (08:08→20:00)
[2020-03-10] MEDS: NYSTATIN CREAM - 30GM TUBE TP SCH ×2 (08:08→20:13)
[2020-03-10 08:42] LABS: POTASSIUM 3.8 MMOL/L (3.5-5.1)
--- NOTE | 2020-03-10 09:08 | NUR ---
Spoke with Dr. Patiño regarding patient's K, which is 3.8 but he wants replaced up to 4.0 or higher, he wants 2 more bags of 20meq/100ml given and not rechecked till AM.
--- NOTE | 2020-03-10 10:55 | NUR ---
TPN consult: Per RN pt just had a PICC line placed. TPN recommendations below have been d/w clinical pharmacist. Recommend Clinimix-E as pt receiving electrolyte replacement. TPN will meet minimum protein needs using AdjBW given morbidly obese BMI as to not overfeed given high dextrose formula. Pt continues with NG tube for suction at this time. LBM 5/6 however per RN BMs are "non-existent" and pt with mucous output. Will continue to follow closely. Reassessment: Pt remains NPO. Per KUB report: obstruction vs colonic pseudo-obstruction, Olgilvie's colon, moderate dilation to transverse colon, collapsed splenic flexure and sigmoid areas w/ normal descending colon and rectum. Pt pending gastrografin enema and may require colonoscopy for decompression if physically obstructed per MD note. Will need UC diet ed once more stable. LBM 5/5 x5 small liquid volumes per EMR. IF prolonged NPO at least 7 days anticipated w/ persistent ileus may benefit from PN. Will continue to monitor. Initial: Pt admit w/ sepsis, MADDY, dehydration, and metabolic acidosis. 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 Per CT: dilated transverse colon, dilated air-filled small bowel, possible ileus, possible chronic UC of sigmoid colon and rectum, cholelithiasis, and stone in urinary bladder. Pt remains NPO at this time; LBM 5/3. Pt last admit in June 2019 received bananas w/ meals to help decrease diarrhea and pt did not like cream of wheat or oatmeal only wanting yogurt TID. Will monitor for PO diet advancement and tolerance. Pt denies hx UC; would benefit from low-residue diet ed once stable prior to discharge if truly UC DX. Rec: 1. Continuous 2:1 Clinimix-E 03/23 with goal rate of 105 mL/hr to provide: 2520 mL total volume/day, 126 g AA, 504 g dext (2.6 mg/kg/min) 2. Additional 144 mL 20% intralipids at 12 mL/hr for 12 hours to provide: 28.8 g lipids and 288 kcal (11.5% kcal from lipids) 3) In total, TPN and lipids to provide: 2002 non-protein kcal and 2506 total kcal 4) Prealbumin and TG q Saturday/ 5) Daily weights 6) Advance diet as medically indicated to low-residue 7) monitor for ONS needs once PO 8) honor pt food preferences once diet advances 9) diet ed once stable prior to discharge 10) Monitor renal labs Addendum: 03/10/20 at [address] Amended: Links added.
[2020-03-10 11:00] VITALS: BP 108/52
--- NOTE | 2020-03-10 11:08 | NUR ---
PICC INSERTION INFORMATION: REF: [id number] LOT: [id number] EXP: 11/03/2020
[2020-03-10] MEDS ORDERED: Dextrose 10%-water IV solution 1,000 ML IV PRN (11:25)
[2020-03-10 12:10] LABS: PREALBUMIN 12.8 MG/DL (19-36)
[2020-03-10] MEDS ORDERED: Trace element-5 inj. 1 ML in AA 5%/CALCIUM/LYTES/DEXT 20% 2,000 ML IV SCH ×2 (13:42→21:00)
[2020-03-10 15:00] VITALS: BP 123/80
--- NOTE | 2020-03-10 18:11 | NUR ---
Patient in room PCU 3014. I have received report from YESSY Cummings and had the opportunity to ask questions and assume patient care.
--- NOTE | 2020-03-10 18:11 | NUR ---
Problems reprioritized. Patient report given, questions answered & plan of care reviewed with YESSY Ortiz.
[2020-03-10 19:00] VITALS: BP 122/75
[2020-03-10] MEDS: fat emulsion IV bag 250 ML IV SCH (19:53)
[2020-03-10 23:00] VITALS: BP 141/77
[2020-03-11 02:00] VITALS: BP 132/78
[2020-03-11] MEDS: metroNIDAZOLE-Flagyl 500mg/NS 100 ML IV SCH ×3 (03:08→18:45)
[2020-03-11 04:07] LABS: BASOPHILS # (AUTO) 0.1 X10'3 (0-0.2); BASOPHILS % (AUTO) 0.3 % (0-1); EOSINOPHILS # (AUTO) 0.2 X10'3 (0-0.9); EOSINOPHILS % (AUTO) 0.7 % (0-6); HEMATOCRIT 27.6 % (42.0-52.0); HEMOGLOBIN 8.5 g/dl (14.0-17.9); LYMPHOCYTES # (AUTO) 1.4 X10'3 (1.1-4.8); LYMPHOCYTES % (AUTO) 6.3 % (21-51); MEAN CORPUSCULAR HEMOGLOBIN 22.4 PG (27.0-31.0); MEAN CORPUSCULAR HGB CONC 30.7 g/dL (33.0-36.5); MEAN PLATELET VOLUME 6.6 FL (7.4-10.4); MONOCYTES # (AUTO) 1.4 X10'3 (0-0.9); MONOCYTES % (AUTO) 6.2 % (2-12); NEUTROPHILS # (AUTO) 19.1 X10'3 (1.8-7.7); NEUTROPHILS % (AUTO) 86.5 % (42-75); PLATELET COUNT 324 X10'3 (140-440); RED BLOOD COUNT 3.78 X10'6 (4.70-6.10); RED CELL DISTRIBUTION WIDTH 22.8 % (11.5-14.5); WHITE BLOOD COUNT 22.1 X10'3 (4.5-11.0)
[2020-03-11 04:15] LABS: ALBUMIN 1.9 G/DL (3.4-5.0); ALBUMIN/GLOBULIN RATIO 0.4 (1.1-1.5); ALKALINE PHOSPHATASE 67 IU/L (46-116); ANION GAP 4 (8-16); ASPARTATE AMINO TRANSFERASE 15 U/L (10-37); BILIRUBIN,TOTAL 0.3 MG/DL (0.1-1.0); BLOOD UREA NITROGEN 35 MG/DL (7-18); BUN/CREATININE RATIO 25.9 (5.4-32.0); CALCIUM 8.3 MG/DL (8.5-10.1); CHLORIDE 109 MMOL/L (99-107); CREATININE 1.35 MG/DL (0.60-1.10); GLUCOSE 173 MG/DL (70-104); MAGNESIUM 1.4 MG/DL (1.5-2.4); POTASSIUM 3.5 MMOL/L (3.5-5.1); SODIUM 147 MMOL/L (135-145); TOTAL CARBON DIOXIDE 33.8 MMOL/L (24-32); TOTAL PROTEIN 6.2 G/DL (6.4-8.2); eGFR 54 ML/MIN
[2020-03-11 04:23] LABS: ALANINE AMINOTRANSFERASE < 6 U/L (12-78)
[2020-03-11 04:32] LABS: TOTAL CELLS COUNTED 100
[2020-03-11 04:33] LABS: ANISOCYTOSIS 3+; ELLIPTOCYTES 1+; MICROCYTOSIS 1+; PLATELET ESTIMATE NORMAL; TOXIC GRANULATION 1+
[2020-03-11 06:00] VITALS: BP 116/71
--- NOTE | 2020-03-11 06:10 | NUR ---
Patient in room PCU 3014. I have received report from Diana KRISHNAMURTHY and had the opportunity to ask questions and assume patient care.
--- NOTE | 2020-03-11 06:26 | NUR ---
Problems reprioritized. Patient report given, questions answered & plan of care reviewed with YESSY Jones.
[2020-03-11] MEDS: lactobacillus rhamnosus 10,000 MMU CELLS/CAPSULE PO SCH ×2 (08:00→20:00)
[2020-03-11] MEDS: multivitamins, therapeutics tablet PO SCH (08:00)
[2020-03-11] MEDS: NYSTATIN CREAM - 30GM TUBE TP SCH ×2 (08:00→20:28)
[2020-03-11] MEDS: heparin, porcine 5000 units/ml vial SQ SCH ×2 (08:11→20:27)
[2020-03-11] MEDS: neostigmine methylsulfate 1 MG/ML 10ml vial SQ SCH ×2 (08:14→20:00)
[2020-03-11] MEDS: pantoprazole 40 MG vial IV SCH (08:21)
[2020-03-11] MEDS: levoFLOXACIN-Levaquin 250mg/D5 50 ML IV SCH (08:38)
[2020-03-11] MEDS ORDERED: dextrose ORAL solution 15 GM/59 ML bottle PO PRN ×2 (09:30)
[2020-03-11] MEDS ORDERED: dextrose 50%-water 50ml dispensing syringe IV PRN ×2 (09:30)
[2020-03-11] MEDS ORDERED: glucagon, human recombinant 1mg kit SUBCUT PRN (09:30)
[2020-03-11] MEDS: insulin regular, human U-100 3ml vial - multi-dose SQ SCH ×2 (10:10→20:38)
[2020-03-11] MEDS: potassium Cl 20mEq/100mL bag 100 ML IV PRN (12:35)
[2020-03-11] MEDS: MVI, adult No.4 with vit. K 10 ML in dextrose 5% water 500ml 500 ML IV SCH ×2 (14:00)
[2020-03-11] MEDS ORDERED: Trace element-5 inj. 1 ML in AA 5%/CALCIUM/LYTES/DEXT 20% 2,000 ML IV SCH ×5 (14:00→17:00)
[2020-03-11 15:00] VITALS: BP 142/107
[2020-03-11 16:19] VITALS: BP 124/67
--- NOTE | 2020-03-11 18:00 | NUR ---
Problems reprioritized. Patient report given, questions answered & plan of care reviewed with Diana KRISHNAMURTHY.
--- NOTE | 2020-03-11 18:00 | NUR ---
Orientee documentation: I have reviewed and agree with all interventions, assessments performed and documented by Kristina Multani RN
--- NOTE | 2020-03-11 18:13 | NUR ---
Problems reprioritized. Patient report given, questions answered & plan of care reviewed with YESSY Ortiz.
[2020-03-11] MEDS: fat emulsion IV bag 250 ML IV SCH (20:16)
[2020-03-11] MEDS ORDERED: sodium phosphate inj. 15 MMOL in dextrose 5%-water 250 ML IV PRN (23:35)
[2020-03-11] MEDS ORDERED: Neutra Phos packet PO PRN (23:35)
[2020-03-11] MEDS ORDERED: sodium phosphate inj. 30 MMOL in dextrose 5%-water 250 ML IV PRN (23:35)
[2020-03-11] MEDS ORDERED: magnesium 4gm in 100ml NS 100 ML IV PRN (23:35)
[2020-03-11] MEDS ORDERED: magnesium 2GM in 50ml NS 50 ML IV PRN (23:35)
[2020-03-11] MEDS ORDERED: potassium Cl 20mEq/100mL bag 100 ML IV PRN (23:35)
--- NOTE | 2020-03-12 00:08 | NUR ---
Patient in room PCU 3014. I have received report from Diana KRISHNAMURTHY and had the opportunity to ask questions and assume patient care.
--- NOTE | 2020-03-12 00:27 | NUR ---
Problems reprioritized. Patient report given, questions answered & plan of care reviewed with YESSY Goldsmith.
[2020-03-12] MEDS: metroNIDAZOLE-Flagyl 500mg/NS 100 ML IV SCH ×4 (00:59→23:42)
[2020-03-12 02:00] VITALS: BP 133/78
[2020-03-12] MEDS: insulin regular, human U-100 3ml vial - multi-dose SQ SCH ×3 (02:21→20:13)
--- NOTE | 2020-03-12 04:11 | NUR ---
Educated patient on NPO for a test in the morning. Patient given swabs to wet mouth. Patient states he will just get up and drink out of the sink.
[2020-03-12 05:25] LABS: BASOPHILS % (AUTO) 0.2 % (0-1); EOSINOPHILS # (AUTO) 0.2 X10'3 (0-0.9); EOSINOPHILS % (AUTO) 1.5 % (0-6); HEMATOCRIT 25.2 % (42.0-52.0); HEMOGLOBIN 7.6 g/dl (14.0-17.9); LYMPHOCYTES # (AUTO) 1.7 X10'3 (1.1-4.8); LYMPHOCYTES % (AUTO) 11.1 % (21-51); MEAN CORPUSCULAR HEMOGLOBIN 22.1 PG (27.0-31.0); MEAN CORPUSCULAR HGB CONC 30.1 g/dL (33.0-36.5); MEAN CORPUSCULAR VOLUME 73.5 FL (78-98); MONOCYTES % (AUTO) 6.5 % (2-12); NEUTROPHILS # (AUTO) 12.3 X10'3 (1.8-7.7); NEUTROPHILS % (AUTO) 80.7 % (42-75); PLATELET COUNT 310 X10'3 (140-440); RED BLOOD COUNT 3.43 X10'6 (4.70-6.10); RED CELL DISTRIBUTION WIDTH 22.9 % (11.5-14.5); WHITE BLOOD COUNT 15.2 X10'3 (4.5-11.0)
[2020-03-12 05:49] LABS: ALANINE AMINOTRANSFERASE 9 U/L (12-78); ALBUMIN 1.9 G/DL (3.4-5.0); ALBUMIN/GLOBULIN RATIO 0.4 (1.1-1.5); ALKALINE PHOSPHATASE 63 IU/L (46-116); ANION GAP 4 (8-16); ASPARTATE AMINO TRANSFERASE 14 U/L (10-37); BILIRUBIN,TOTAL 0.2 MG/DL (0.1-1.0); BLOOD UREA NITROGEN 23 MG/DL (7-18); CALCIUM 8.7 MG/DL (8.5-10.1); CHLORIDE 112 MMOL/L (99-107); CREATININE 1.21 MG/DL (0.60-1.10); GLUCOSE 178 MG/DL (70-104); MAGNESIUM 1.5 MG/DL (1.5-2.4); PHOSPHORUS 2.2 MG/DL (2.3-4.5); POTASSIUM 3.4 MMOL/L (3.5-5.1); SODIUM 150 MMOL/L (135-145); TOTAL CARBON DIOXIDE 33.8 MMOL/L (24-32); TOTAL PROTEIN 6.2 G/DL (6.4-8.2); eGFR 62 ML/MIN
--- NOTE | 2020-03-12 06:30 | NUR ---
Patient in room PCU 3014. I have received report from Rupal KRISHNAMURTHY and had the opportunity to ask questions and assume patient care.
--- NOTE | 2020-03-12 06:34 | NUR ---
Problems reprioritized. Patient report given, questions answered & plan of care reviewed with Nancy KRISHNAMURTHY.
[2020-03-12 06:45] LABS: ANISOCYTOSIS 3+; MICROCYTOSIS 1+; PLATELET ESTIMATE NORMAL; POLYCHROMASIA FEW
[2020-03-12] MEDS: lactobacillus rhamnosus 10,000 MMU CELLS/CAPSULE PO SCH ×2 (08:00→20:13)
[2020-03-12] MEDS: NYSTATIN CREAM - 30GM TUBE TP SCH ×2 (08:00→20:14)
[2020-03-12] MEDS: potassium Cl 20mEq/100mL bag 100 ML IV PRN ×2 (08:01→12:56)
--- NOTE | 2020-03-12 10:02 | NUR ---
Patient in room PCU 3014. I have received report from Nancy and had the opportunity to ask questions and assume patient care.
[2020-03-12] MEDS: multivitamins, therapeutics tablet PO SCH (10:45)
[2020-03-12] MEDS: neostigmine methylsulfate 1 MG/ML 10ml vial SQ SCH ×2 (10:46→20:14)
[2020-03-12] MEDS: MVI, adult No.4 with vit. K 10 ML in dextrose 5% water 500ml 500 ML IV SCH ×2 (10:47)
[2020-03-12] MEDS: heparin, porcine 5000 units/ml vial SQ SCH ×2 (10:47→20:14)
[2020-03-12] MEDS: pantoprazole 40 MG vial IV SCH (10:48)
[2020-03-12 11:00] VITALS: BP 125/85
[2020-03-12 15:00] VITALS: BP 135/84
[2020-03-12 18:00] VITALS: BP 130/79
--- NOTE | 2020-03-12 18:22 | NUR ---
Problems reprioritized. Patient report given, questions answered & plan of care reviewed with Alexus.
--- NOTE | 2020-03-12 18:47 | NUR ---
Patient in room PCU 3014. I have received report from YESSY Calderón and had the opportunity to ask questions and assume patient care.
[2020-03-12] MEDS: fat emulsion IV bag 250 ML IV SCH (20:06)
[2020-03-12 22:00] VITALS: BP 142/84
[2020-03-13 01:30] LABS: BASOPHILS % (AUTO) 0.3 % (0-1); EOSINOPHILS # (AUTO) 0.2 X10'3 (0-0.9); EOSINOPHILS % (AUTO) 1.5 % (0-6); HEMATOCRIT 24.1 % (42.0-52.0); HEMOGLOBIN 7.4 g/dl (14.0-17.9); LYMPHOCYTES # (AUTO) 1.8 X10'3 (1.1-4.8); LYMPHOCYTES % (AUTO) 13.3 % (21-51); MEAN CORPUSCULAR HEMOGLOBIN 22.7 PG (27.0-31.0); MEAN CORPUSCULAR HGB CONC 30.5 g/dL (33.0-36.5); MEAN CORPUSCULAR VOLUME 74.4 FL (78-98); MEAN PLATELET VOLUME 6.8 FL (7.4-10.4); MONOCYTES # (AUTO) 0.7 X10'3 (0-0.9); MONOCYTES % (AUTO) 5.3 % (2-12); NEUTROPHILS # (AUTO) 10.9 X10'3 (1.8-7.7); NEUTROPHILS % (AUTO) 79.6 % (42-75); PLATELET COUNT 303 X10'3 (140-440); RED BLOOD COUNT 3.24 X10'6 (4.70-6.10); RED CELL DISTRIBUTION WIDTH 22.2 % (11.5-14.5); WHITE BLOOD COUNT 13.7 X10'3 (4.5-11.0)
[2020-03-13 01:34] LABS: ALANINE AMINOTRANSFERASE 9 U/L (12-78); ALBUMIN 1.9 G/DL (3.4-5.0); ALBUMIN/GLOBULIN RATIO 0.4 (1.1-1.5); ALKALINE PHOSPHATASE 75 IU/L (46-116); ANION GAP 5 (8-16); ASPARTATE AMINO TRANSFERASE 16 U/L (10-37); BILIRUBIN,TOTAL 0.2 MG/DL (0.1-1.0); BLOOD UREA NITROGEN 20 MG/DL (7-18); BUN/CREATININE RATIO 17.2 (5.4-32.0); CALCIUM 8.2 MG/DL (8.5-10.1); CHLORIDE 110 MMOL/L (99-107); CREATININE 1.16 MG/DL (0.60-1.10); GLUCOSE 158 MG/DL (70-104); MAGNESIUM 1.4 MG/DL (1.5-2.4); POTASSIUM 3.3 MMOL/L (3.5-5.1); SODIUM 148 MMOL/L (135-145); TOTAL CARBON DIOXIDE 33.4 MMOL/L (24-32); TOTAL PROTEIN 6.2 G/DL (6.4-8.2); eGFR 65 ML/MIN
[2020-03-13] MEDS: potassium Cl 20mEq/100mL bag 100 ML IV PRN ×2 (01:42→02:48)
[2020-03-13 02:00] VITALS: BP 144/77
[2020-03-13] MEDS: insulin regular, human U-100 3ml vial - multi-dose SQ SCH ×4 (02:18→20:22)
[2020-03-13 02:42] LABS: ANISOCYTOSIS 3+; MICROCYTOSIS 1+; PLATELET ESTIMATE NORMAL; TOTAL CELLS COUNTED 100
--- NOTE | 2020-03-13 03:59 | NUR ---
Pt.TPN RUNNING AT 30ML/H DURING SHIFT CHANGE.REVIEW THE ORDER FROM THE DIETITIAN PT SHOULD BE AT 105ML/H ,INCREASED THE RATE PER ORDER.WE WILL CONTINUE WITH PT. CARE.
--- NOTE | 2020-03-13 06:32 | NUR ---
Problems reprioritized. Patient report given, questions answered & plan of care reviewed with YESSY Huber.
--- NOTE | 2020-03-13 06:35 | NUR ---
Patient in room PCU 3014a. I have received report from YESSY Vaughan and had the opportunity to ask questions and assume patient care.
[2020-03-13] MEDS: metroNIDAZOLE-Flagyl 500mg/NS 100 ML IV SCH ×2 (07:39→15:14)
[2020-03-13] MEDS: pantoprazole 40 MG vial IV SCH (07:40)
[2020-03-13] MEDS: multivitamins, therapeutics tablet PO SCH (07:40)
[2020-03-13] MEDS: levoFLOXACIN-Levaquin 250mg/D5 50 ML IV SCH (07:40)
[2020-03-13] MEDS: lactobacillus rhamnosus 10,000 MMU CELLS/CAPSULE PO SCH ×2 (07:40→20:00)
[2020-03-13] MEDS: NYSTATIN CREAM - 30GM TUBE TP SCH ×2 (07:41→21:36)
[2020-03-13] MEDS: heparin, porcine 5000 units/ml vial SQ SCH ×2 (08:00→21:36)
[2020-03-13] MEDS: neostigmine methylsulfate 1 MG/ML 10ml vial SQ SCH ×2 (08:55→21:35)
[2020-03-13] MEDS: MVI, adult No.4 with vit. K 10 ML in dextrose 5% water 500ml 500 ML IV SCH ×2 (11:10)
[2020-03-13 11:15] LABS: ALANINE AMINOTRANSFERASE 8 U/L (12-78); ALBUMIN 1.9 G/DL (3.4-5.0); ALBUMIN/GLOBULIN RATIO 0.4 (1.1-1.5); ALKALINE PHOSPHATASE 79 IU/L (46-116); ANION GAP 5 (8-16); ASPARTATE AMINO TRANSFERASE 13 U/L (10-37); BILIRUBIN,TOTAL 0.2 MG/DL (0.1-1.0); BLOOD UREA NITROGEN 18 MG/DL (7-18); BUN/CREATININE RATIO 15.9 (5.4-32.0); CALCIUM 8.2 MG/DL (8.5-10.1); CHLORIDE 109 MMOL/L (99-107); CREATININE 1.13 MG/DL (0.60-1.10); GLUCOSE 229 MG/DL (70-104); MAGNESIUM 1.4 MG/DL (1.5-2.4); POTASSIUM 3.9 MMOL/L (3.5-5.1); SODIUM 146 MMOL/L (135-145); TOTAL CARBON DIOXIDE 32.1 MMOL/L (24-32); TOTAL PROTEIN 6.2 G/DL (6.4-8.2); eGFR 67 ML/MIN
[2020-03-13] MEDS: Trace element-5 inj. 1 ML in AA 5%/CALCIUM/LYTES/DEXT 20% 2,000 ML IV SCH (12:50)
[2020-03-13] MEDS ORDERED: magnesium 4gm in 100ml NS 100 ML IV ONE (13:05)
--- NOTE | 2020-03-13 13:57 | NUR ---
Reassessment: Pt seen by RD for written/verbal UC diet ed w/ RD contact information provided. Pt remains NPO allowed ice chips and tolerating TPN at goal. Latest KUB today shows colon normal in caliper, mild prominence transverse colon without evidence of transfuse colonic dilation, and descending colon possible mild narrowing per MD. Pt reports wanting PO liquids and solid foods during RD visit; RD encouraged pt to d/w MD regarding diet advancement as medically indicated given functional gut and dilation improving from admit per KUB report. R NG remains in place to suction -1500ml output yesterday and 400ml so far today; WNL and PO water likely suctioned as well. LBM 03/13. Will continue to monitor for PO diet advancement and tolerance. Rec: 1. Continuous 2:1 Clinimix-E 03/23 with goal rate of 105 mL/hr to provide: 2520 mL total volume/day, 126 g AA, 504 g dext (2.6 mg/kg/min) 2. Additional 144 mL 20% intralipids at 12 mL/hr for 12 hours to provide: 28.8 g lipids and 288 kcal (11.5% kcal from lipids) 3) In total, TPN and lipids to provide: 2002 non-protein kcal and 2506 total kcal 4) Prealbumin and TG q Saturday/ 5) Daily weights 6) Advance diet as medically indicated to low-residue 7) monitor for ONS needs once PO 8) honor pt food preferences once diet advances Addendum: 03/13/20 at [address] Amended: Links added.
--- NOTE | 2020-03-13 14:30 | NUR ---
Patient in room PCU 3014. I have received report from Cecile KRISHNAMURTHY and had the opportunity to ask questions and assume patient care.
--- NOTE | 2020-03-13 14:45 | NUR ---
Problems reprioritized. Patient report given, questions answered & plan of care reviewed with YESSY Menjivar.
[2020-03-13 15:00] VITALS: BP 138/100
--- NOTE | 2020-03-13 16:19 | NUR ---
Spoke with senior cost accountant, Glenn, in regards to NG suction order, decided that it should be at intermittent suction, not continuous, will continue to monitor the patient closely.
[2020-03-13 18:00] VITALS: BP 134/83
--- NOTE | 2020-03-13 18:30 | NUR ---
Patient in room U 3014-A. I have received report from YESSY Menjivar and had the opportunity to ask questions and assume patient care.
--- NOTE | 2020-03-13 18:30 | NUR ---
Problems reprioritized. Patient report given, questions answered & plan of care reviewed with Terrell KRISHNAMURTHY.
[2020-03-13 20:00] VITALS: BP 122/72
[2020-03-13] MEDS: fat emulsion IV bag 250 ML IV SCH (21:25)
[2020-03-14] MEDS: metroNIDAZOLE-Flagyl 500mg/NS 100 ML IV SCH ×4 (00:04→23:53)
[2020-03-14 02:00] VITALS: BP 116/59
[2020-03-14] MEDS: insulin regular, human U-100 3ml vial - multi-dose SQ SCH ×3 (02:18→20:19)
[2020-03-14 03:43] LABS: BASOPHILS # (AUTO) 0.1 X10'3 (0-0.2); BASOPHILS % (AUTO) 0.8 % (0-1); EOSINOPHILS # (AUTO) 0.3 X10'3 (0-0.9); MONOCYTES # (AUTO) 0.7 X10'3 (0-0.9)
[2020-03-14 03:44] LABS: EOSINOPHILS % (AUTO) 2.5 % (0-6); LYMPHOCYTES # (AUTO) 1.6 X10'3 (1.1-4.8); LYMPHOCYTES % (AUTO) 14.4 % (21-51); MEAN CORPUSCULAR HEMOGLOBIN 24.9 PG (27.0-31.0); MEAN CORPUSCULAR HGB CONC 33.4 g/dL (33.0-36.5); MEAN CORPUSCULAR VOLUME 74.4 FL (78-98); MEAN PLATELET VOLUME 7.2 FL (7.4-10.4); MONOCYTES % (AUTO) 6.6 % (2-12); NEUTROPHILS # (AUTO) 8.1 X10'3 (1.8-7.7); NEUTROPHILS % (AUTO) 75.7 % (42-75); PLATELET COUNT 332 X10'3 (140-440); RED BLOOD COUNT 3.22 X10'6 (4.70-6.10); RED CELL DISTRIBUTION WIDTH 23.2 % (11.5-14.5); WHITE BLOOD COUNT 10.8 X10'3 (4.5-11.0)
[2020-03-14 04:02] LABS: ALBUMIN 1.9 G/DL (3.4-5.0); ALKALINE PHOSPHATASE 79 IU/L (46-116); CALCIUM 7.4 MG/DL (8.5-10.1); CREATININE 0.98 MG/DL (0.60-1.10); MAGNESIUM 1.9 MG/DL (1.5-2.4); PREALBUMIN 17.2 MG/DL (19-36); SODIUM 143 MMOL/L (135-145); TOTAL CARBON DIOXIDE 32.2 MMOL/L (24-32); TRIGLYCERIDES 888 MG/DL (20-135); eGFR 79 ML/MIN
[2020-03-14 04:30] LABS: ALBUMIN/GLOBULIN RATIO 0.5 (1.1-1.5); ANION GAP 5 (8-16); BILIRUBIN,TOTAL 0.2 MG/DL (0.1-1.0); BLOOD UREA NITROGEN 20 MG/DL (7-18); BUN/CREATININE RATIO 20.4 (5.4-32.0); CHLORIDE 106 MMOL/L (99-107); GLUCOSE 100 MG/DL (70-104); PHOSPHORUS 3.3 MG/DL (2.3-4.5); POTASSIUM 3.8 MMOL/L (3.5-5.1); TOTAL PROTEIN 6.1 G/DL (6.4-8.2)
[2020-03-14 04:40] LABS: ALANINE AMINOTRANSFERASE 12 U/L (12-78); ASPARTATE AMINO TRANSFERASE 24 U/L (10-37)
--- NOTE | 2020-03-14 06:26 | NUR ---
Problems reprioritized. Patient report given, questions answered & plan of care reviewed with YESSY Duque
[2020-03-14 07:00] VITALS: BP 133/82
[2020-03-14] MEDS: pantoprazole 40 MG vial IV SCH (08:00)
[2020-03-14] MEDS: multivitamins, therapeutics tablet PO SCH (09:20)
[2020-03-14] MEDS: lactobacillus rhamnosus 10,000 MMU CELLS/CAPSULE PO SCH ×2 (09:20→20:05)
[2020-03-14] MEDS: Trace element-5 inj. 1 ML in AA 5%/CALCIUM/LYTES/DEXT 20% 2,000 ML IV SCH (09:20)
[2020-03-14] MEDS: heparin, porcine 5000 units/ml vial SQ SCH ×2 (09:23→20:09)
[2020-03-14] MEDS: NYSTATIN CREAM - 30GM TUBE TP SCH ×2 (09:37→20:00)
[2020-03-14] MEDS: neostigmine methylsulfate 1 MG/ML 10ml vial SQ SCH ×2 (09:37→20:07)
[2020-03-14 10:07] LABS: TOTAL CELLS COUNTED 100
[2020-03-14 10:08] LABS: ANISOCYTOSIS 3+; MICROCYTOSIS 1+; PLATELET ESTIMATE NORMAL
[2020-03-14 11:00] VITALS: BP 134/74
[2020-03-14 15:00] VITALS: BP 128/80
[2020-03-14] MEDS: MVI, adult No.4 with vit. K 10 ML in dextrose 5% water 500ml 500 ML IV SCH ×2 (16:56)
--- NOTE | 2020-03-14 18:48 | NUR ---
Problems reprioritized. Patient report given, questions answered & plan of care reviewed with Jaren KRISHNAMURTHY.
--- NOTE | 2020-03-14 18:50 | NUR ---
Patient in room PCU 3024. I have received report from YESSY Duque and had the opportunity to ask questions and assume patient care. Patient A&O x4 and sitting in chair for bedside report. Complaints of slight headache but stable at this time. Will continue to monitor closely.
[2020-03-14 19:00] VITALS: BP 146/77
[2020-03-14] MEDS: fat emulsion IV bag 250 ML IV SCH (20:05)
[2020-03-14 23:00] VITALS: BP 130/82
[2020-03-15 02:00] VITALS: BP 126/70
[2020-03-15] MEDS: Trace element-5 inj. 1 ML in AA 5%/CALCIUM/LYTES/DEXT 20% 2,000 ML IV SCH ×2 (02:08→21:12)
[2020-03-15] MEDS: insulin regular, human U-100 3ml vial - multi-dose SQ SCH ×2 (03:02→09:31)
[2020-03-15 06:01] LABS: BASOPHILS # (AUTO) 0.1 X10'3 (0-0.2); BASOPHILS % (AUTO) 0.7 % (0-1); EOSINOPHILS # (AUTO) 0.3 X10'3 (0-0.9); EOSINOPHILS % (AUTO) 2.3 % (0-6); HEMATOCRIT 25.4 % (42.0-52.0); HEMOGLOBIN 7.7 g/dl (14.0-17.9); LYMPHOCYTES # (AUTO) 1.6 X10'3 (1.1-4.8); LYMPHOCYTES % (AUTO) 12.9 % (21-51); MEAN CORPUSCULAR HGB CONC 30.3 g/dL (33.0-36.5); MEAN CORPUSCULAR VOLUME 75.9 FL (78-98); MEAN PLATELET VOLUME 6.8 FL (7.4-10.4); MONOCYTES # (AUTO) 0.9 X10'3 (0-0.9); NEUTROPHILS # (AUTO) 9.4 X10'3 (1.8-7.7); NEUTROPHILS % (AUTO) 77.1 % (42-75); PLATELET COUNT 377 X10'3 (140-440); RED BLOOD COUNT 3.35 X10'6 (4.70-6.10); RED CELL DISTRIBUTION WIDTH 22.7 % (11.5-14.5); WHITE BLOOD COUNT 12.2 X10'3 (4.5-11.0)
[2020-03-15 06:17] LABS: ALANINE AMINOTRANSFERASE 10 U/L (12-78); ALBUMIN/GLOBULIN RATIO 0.5 (1.1-1.5); ALKALINE PHOSPHATASE 91 IU/L (46-116); ANION GAP 4 (8-16); ASPARTATE AMINO TRANSFERASE 17 U/L (10-37); BILIRUBIN,TOTAL 0.2 MG/DL (0.1-1.0); BLOOD UREA NITROGEN 19 MG/DL (7-18); BUN/CREATININE RATIO 18.1 (5.4-32.0); CALCIUM 7.9 MG/DL (8.5-10.1); CHLORIDE 110 MMOL/L (99-107); CREATININE 1.05 MG/DL (0.60-1.10); GLUCOSE 55 MG/DL (70-104); POTASSIUM 3.9 MMOL/L (3.5-5.1); SODIUM 145 MMOL/L (135-145); TOTAL PROTEIN 6.2 G/DL (6.4-8.2); eGFR 73 ML/MIN
--- NOTE | 2020-03-15 06:17 | NUR ---
Patient in room PCU 3024. I have received report from Jaren KRISHNAMURTHY and had the opportunity to ask questions and assume patient care.
--- NOTE | 2020-03-15 06:24 | NUR ---
Problems reprioritized. Patient report given, questions answered & plan of care reviewed with YESSY MONAE.
[2020-03-15 07:00] VITALS: BP 129/65
[2020-03-15 07:02] LABS: ANISOCYTOSIS 3+; MICROCYTOSIS 1+; PLATELET ESTIMATE NORMAL
[2020-03-15 07:03] LABS: HYPOCHROMASIA 1+
[2020-03-15] MEDS: neostigmine methylsulfate 1 MG/ML 10ml vial SQ SCH ×2 (08:00→21:07)
[2020-03-15] MEDS: pantoprazole 40 MG vial IV SCH (08:19)
[2020-03-15] MEDS: metroNIDAZOLE-Flagyl 500mg/NS 100 ML IV SCH ×3 (08:19→23:30)
[2020-03-15] MEDS: multivitamins, therapeutics tablet PO SCH (08:20)
[2020-03-15] MEDS: heparin, porcine 5000 units/ml vial SQ SCH ×2 (08:20→21:00)
[2020-03-15] MEDS: lactobacillus rhamnosus 10,000 MMU CELLS/CAPSULE PO SCH ×2 (08:20→21:00)
[2020-03-15] MEDS: levoFLOXACIN-Levaquin 250mg/D5 50 ML IV SCH (08:20)
[2020-03-15] MEDS: NYSTATIN CREAM - 30GM TUBE TP SCH ×2 (08:28→20:00)
[2020-03-15] MEDS ORDERED: PSYL575P22 PO (09:13)
[2020-03-15] MEDS: MVI, adult No.4 with vit. K 10 ML in dextrose 5% water 500ml 500 ML IV SCH ×2 (09:34)
[2020-03-15 11:00] VITALS: BP 117/78
--- NOTE | 2020-03-15 13:07 | NUR ---
F/u: Pt advanced to regular diet PO 50-75% recent meals w/ TPN weaning today per RN. Electrolytes WNL. LBM 03/14. Since PO can honor pt prior food preferences; dietary notified. Will monitor for ONS/additional protein needs pending further PO hx. Rec: 1. advance diet as medically indicated to low-residue 2. monitor for ONS needs 3. honor pt food preferences; bananas at breakfast, yogurt TIDWM; dislikes cream of wheat/oatmeal 4. bowel care as needed 5. weekly wts Addendum: 03/15/20 at [address] Amended: Links added.
[2020-03-15 15:00] VITALS: BP 121/65
[2020-03-15] MEDS: potassium Cl 20mEq/100mL bag 100 ML IV PRN ×3 (16:22→21:12)
--- NOTE | 2020-03-15 18:17 | NUR ---
Problems reprioritized. Patient report given, questions answered & plan of care reviewed with Jaren KRISHNAMURTHY.
[2020-03-15 19:00] VITALS: BP 125/75
[2020-03-15] MEDS: fat emulsion IV bag 250 ML IV SCH (20:00)
[2020-03-15] MEDS: psyllium seed 3.4 gm packet PO SCH (20:00)
[2020-03-15] MEDS ORDERED: glucagon, human recombinant 1mg kit SUBCUT PRN (22:00)
[2020-03-15] MEDS ORDERED: dextrose ORAL solution 15 GM/59 ML bottle PO PRN ×2 (22:00)
[2020-03-15] MEDS ORDERED: dextrose 50%-water 50ml dispensing syringe IV PRN ×2 (22:00)
[2020-03-15] MEDS ORDERED: insulin Lispro (HumaLOG) vial - multi-dose SQ SCH (22:15)
[2020-03-15 22:26] LABS: HEMOGLOBIN A1C 6.9 % (4.5-6.2)
[2020-03-15 23:00] VITALS: BP 113/71
--- NOTE | 2020-03-15 23:00 | NUR ---
TPN AND FAT EMULSION WEANED AND DC'D AT 1615 TODAY PER DAY RN. MISSED ADMINISTRATION OF SHORT-ACTING INSULIN, HUMALOG, p DINNER DUE TO MISSING HYPER/HYPOGLYCEMIC PROTOCOL ORDERS. HYPER/HYPOGLYCEMIC PROTOCOL ORDER OBTAINED PER SELINA JACK NP. LATE ADMINISTRATION OF LANTUS DUE TO DELAY IN RECEIVING MEDICATION FROM PHARMACY.
[2020-03-16 03:02] VITALS: BP 112/68
[2020-03-16 05:36] LABS: BASOPHILS # (AUTO) 0.1 X10'3 (0-0.2); BASOPHILS % (AUTO) 0.8 % (0-1); EOSINOPHILS # (AUTO) 0.2 X10'3 (0-0.9); HEMATOCRIT 25.1 % (42.0-52.0); HEMOGLOBIN 7.5 g/dl (14.0-17.9); LYMPHOCYTES # (AUTO) 1.7 X10'3 (1.1-4.8); LYMPHOCYTES % (AUTO) 14.2 % (21-51); MEAN CORPUSCULAR HEMOGLOBIN 23.1 PG (27.0-31.0); MEAN CORPUSCULAR HGB CONC 29.9 g/dL (33.0-36.5); MEAN CORPUSCULAR VOLUME 77.1 FL (78-98); MEAN PLATELET VOLUME 7.2 FL (7.4-10.4); MONOCYTES # (AUTO) 0.7 X10'3 (0-0.9); MONOCYTES % (AUTO) 5.9 % (2-12); NEUTROPHILS # (AUTO) 9.4 X10'3 (1.8-7.7); NEUTROPHILS % (AUTO) 77.1 % (42-75); PLATELET COUNT 370 X10'3 (140-440); RED BLOOD COUNT 3.25 X10'6 (4.70-6.10); RED CELL DISTRIBUTION WIDTH 22.9 % (11.5-14.5); WHITE BLOOD COUNT 12.2 X10'3 (4.5-11.0)
[2020-03-16 06:03] LABS: ANION GAP 3 (8-16); BILIRUBIN,TOTAL 0.2 MG/DL (0.1-1.0); BLOOD UREA NITROGEN 16 MG/DL (7-18); BUN/CREATININE RATIO 14.5 (5.4-32.0); CHLORIDE 110 MMOL/L (99-107); GLUCOSE 136 MG/DL (70-104); POTASSIUM 4.4 MMOL/L (3.5-5.1); SODIUM 142 MMOL/L (135-145); TOTAL PROTEIN 6.1 G/DL (6.4-8.2); eGFR 69 ML/MIN
[2020-03-16 06:04] LABS: ALANINE AMINOTRANSFERASE 11 U/L (12-78); ALBUMIN/GLOBULIN RATIO 0.5 (1.1-1.5); ALKALINE PHOSPHATASE 87 IU/L (46-116); ASPARTATE AMINO TRANSFERASE 21 U/L (10-37)
--- NOTE | 2020-03-16 06:35 | NUR ---
Problems reprioritized. Patient report given, questions answered & plan of care reviewed with YESSY CHACKO.
[2020-03-16 07:46] LABS: ANISOCYTOSIS 3+; MICROCYTOSIS 1+; PLATELET ESTIMATE NORMAL; POLYCHROMASIA 1+; TOTAL CELLS COUNTED 100
[2020-03-16 07:47] LABS: HYPOCHROMASIA 1+
[2020-03-16] MEDS: heparin, porcine 5000 units/ml vial SQ SCH (08:00)
[2020-03-16] MEDS: psyllium seed 3.4 gm packet PO SCH (08:00)
[2020-03-16] MEDS: lactobacillus rhamnosus 10,000 MMU CELLS/CAPSULE PO SCH (09:01)
[2020-03-16] MEDS: pantoprazole 40 MG vial IV SCH (09:01)
[2020-03-16] MEDS: multivitamins, therapeutics tablet PO SCH (09:01)
[2020-03-16] MEDS: neostigmine methylsulfate 1 MG/ML 10ml vial SQ SCH (09:51)
[2020-03-16] MEDS ORDERED: pneumococcal 23-VAL P-sac vacc 25 mcg/0.5ml vial IMVAC ONE (10:00)
--- NOTE | 2020-03-16 11:40 | NUR ---
Patient stable for discharge per MD orders. All discharge instructions reviewed with patient and all questions answered. Patient to follow up with Dr. Huang in 3 weeks. Patient referred to Dr. Lau, urology for follow up for kidney stones. PICC line discontinued, cannula intact. Telemetry monitoring discontinued. All patient belongings packed up and sent with patient. Patient wheeled to [employer] by RN. Patient had belongings stored in safe and these were collected in [facility] upon discharge. Patient phoned for cab for transport to home. Addendum: 03/16/20 at 1505 by Asya Hall RN Patient received pneumonia vaccine at time of discharge.
[2020-03-16] MEDS ORDERED: insulin glargine (Lantus) pen - multi-dose SQ SCH (21:00)
== END 2020-03-16 11:40 | disposition home or self-care (01) | DRG 872 ==
LOC: ER 14:57 → ED HOLD 21:24 → CICU 2S 22:31 → PCU 3S 03-09 05:45
PROVIDERS: ADMIT Internal Medicine Critical Care Medicine; ATTEND Internal Medicine Critical Care Medicine
PROC: 06HY33Z Insertion of Infusion Device into Lower Vein, Percutaneous Approach (ICD-10-PCS; principal; 2020-03-07)
DX: A41.9 Sepsis, unspecified organism (principal); N17.9 Acute kidney failure, unspecified; E46 Unspecified protein-calorie malnutrition; K50.90 Crohn's disease, unspecified, without complications; K56.7 Ileus, unspecified; N13.2 Hydronephrosis with renal and ureteral calculous obstruction; E86.0 Dehydration; G89.29 Other chronic pain; E66.9 Obesity, unspecified; I10 Essential (primary) hypertension; Z93.3 Colostomy status; N21.0 Calculus in bladder; Z90.49 Acquired absence of other specified parts of digestive tract; K80.20 Calculus of gallbladder without cholecystitis without obstruction; N40.0 Benign prostatic hyperplasia without lower urinary tract symptoms; Z68.38 Body mass index [BMI] 38.0-38.9, adult; Z88.0 Allergy status to penicillin; Z88.8 Allergy status to other drugs, medicaments and biological substances; Z88.5 Allergy status to narcotic agent
CPT/HCPCS: 36415; 36573; 36600; 71045; 74018; 74176; 74270; 76937; 78707; 80053; 80069; 81001; 82272; 82550; 82570; 82803; 82948; 83036; 83605; 83615; 83735; 83935; 84100; 84132; 84133; 84134; 84145; 84156; 84300; 84439; 84443; 84478; 84560; 85018; 85025; 85610; 85730; 87040; 87081; 87088; 87207; 87324; 87449; 87635; 93005; 96365; 96375; 97110; 97161; 97164; 97530; 99291; A9562; C9113; G0378; J0780; J1200; J1644; J1720; J1815; J1956; J2060; J2185; J2270; J2405; J2710; J3370; J3475; J3480; J3490; J7030; J7040; J7060; P9045; Q9963

== ENCOUNTER 2020-08-01 18:19 | Inpatient (IN) | payer BC ==
[~2020-08-01] VITALS: Ht 175.3 cm; Wt 115.7 kg
[~2020-08-01 18:19] MED LIST changes: -CARV25TA2 PO; +CARV6.253 PO; -LISI-600 PO; -MULT1TAB74 PO; +PSYL575P22 PO
[2020-08-01] MEDS ORDERED: normal saline 1000ml 1,000 ML IV ONE ×2 (18:30→18:40)
[2020-08-01] MEDS ORDERED: famotidine/PF 10 mg/ml inj IV ONE (18:40)
[2020-08-01] MEDS ORDERED: pantoprazole 40 MG vial IV ONE (18:40)
[2020-08-01] MEDS ORDERED: ondansetron/PF 4mg/2ml inj IV ONE (18:40)
[2020-08-01 19:02] LABS: BASOPHILS # (AUTO) 0.1 X10'3 (0-0.2); BASOPHILS % (AUTO) 0.4 % (0-1); EOSINOPHILS # (AUTO) 0.1 X10'3 (0-0.9); EOSINOPHILS % (AUTO) 0.6 % (0-6); HEMATOCRIT 33.9 % (42.0-52.0); HEMOGLOBIN 10.1 g/dl (14.0-17.9); LYMPHOCYTES # (AUTO) 1.9 X10'3 (1.1-4.8); LYMPHOCYTES % (AUTO) 12.1 % (21-51); MEAN CORPUSCULAR HEMOGLOBIN 18.8 PG (27.0-31.0); MEAN CORPUSCULAR HGB CONC 29.8 g/dL (33.0-36.5); MEAN CORPUSCULAR VOLUME 63.1 FL (78-98); MEAN PLATELET VOLUME 6.8 FL (7.4-10.4); MONOCYTES # (AUTO) 1.7 X10'3 (0-0.9); MONOCYTES % (AUTO) 10.4 % (2-12); NEUTROPHILS # (AUTO) 12.2 X10'3 (1.8-7.7); NEUTROPHILS % (AUTO) 76.5 % (42-75); PLATELET COUNT 769 X10'3 (140-440); RED BLOOD COUNT 5.37 X10'6 (4.70-6.10)
[2020-08-01 19:15] LABS: ALANINE AMINOTRANSFERASE 14 U/L (12-78); ALBUMIN 2.5 G/DL (3.4-5.0); ALBUMIN/GLOBULIN RATIO 0.4 (1.1-1.5); ALKALINE PHOSPHATASE 91 IU/L (46-116); ANION GAP 12 (8-16); ASPARTATE AMINO TRANSFERASE 12 U/L (10-37); BILIRUBIN,TOTAL 0.3 MG/DL (0.1-1.0); BLOOD UREA NITROGEN 54 MG/DL (7-18); BUN/CREATININE RATIO 5.3 (5.4-32.0); CALCIUM 6.9 MG/DL (8.5-10.1); CHLORIDE 88 MMOL/L (99-107); CREATININE 10.14 MG/DL (0.60-1.10); GLUCOSE 148 MG/DL (70-104); LIPASE < 50 U/L (73-393); SODIUM 128 MMOL/L (135-145); TOTAL CARBON DIOXIDE 27.9 MMOL/L (24-32); TOTAL PROTEIN 9.4 G/DL (6.4-8.2); eGFR 5 ML/MIN
[2020-08-01 19:17] LABS: POTASSIUM 2.9 MMOL/L (3.5-5.1)
[2020-08-01] MEDS ORDERED: potassium Cl 20 mEq SR tablet PO STA (19:17)
[2020-08-01] MEDS ORDERED: MULT-1085 PO (19:33)
[2020-08-01] MEDS ORDERED: IBUP-1985 PO (19:33)
--- NOTE | 2020-08-01 20:17 | NUR ---
PT RESTING COMFORTABLY IN BED, RESPIRATIONS EVEN, IN NO APPARENT DISTRESS.
[2020-08-01 21:51] LABS: TOTAL CELLS COUNTED 100
[2020-08-01 21:52] LABS: ANISOCYTOSIS 3+; GIANT PLATELET FEW; HYPOCHROMASIA 2+; MICROCYTOSIS 1+; PLATELET ESTIMATE INCREASED
[2020-08-01 21:55] LABS: ELLIPTOCYTES 1+; LARGE PLATELETS MODERATE; POIKILOCYTOSIS 1+; POLYCHROMASIA 1+
--- NOTE | 2020-08-01 22:14 | NUR ---
pt sitting up in bed in no apparent distress. will continue to monitor
[2020-08-01] MEDS: normal saline 1000ml 1,000 ML IV SCH (22:44)
[2020-08-01] MEDS ORDERED: LIDOcaine 2% 10ml TOPICAL JELLY (Urojet) TP ONE (22:45)
[2020-08-01] MEDS ORDERED: magnesium hydroxide 30ml (MOM) UD suspension PO PRN (22:45)
[2020-08-01] MEDS ORDERED: morphine 2 MG/ML inj. syringe IV PRN ×2 (22:45)
[2020-08-01] MEDS ORDERED: ondansetron/PF 4mg/2ml inj IV PRN (22:45)
[2020-08-01] MEDS ORDERED: mag hydrox/Alum hydrox/simeth 30ml oral suspension PO PRN (22:45)
[2020-08-01 23:37] LABS: PHOSPHORUS 6.3 MG/DL (2.3-4.5)
[2020-08-02] VITALS (7 sets, daily range): BP systolic 92–183; BP diastolic 55–67
[2020-08-02 05:27] LABS: BASOPHILS % (AUTO) 0.4 % (0-1); EOSINOPHILS # (AUTO) 0.1 X10'3 (0-0.9); EOSINOPHILS % (AUTO) 1.3 % (0-6); HEMATOCRIT 28.2 % (42.0-52.0); HEMOGLOBIN 8.4 g/dl (14.0-17.9); LYMPHOCYTES % (AUTO) 20.2 % (21-51); MEAN CORPUSCULAR HEMOGLOBIN 19.3 PG (27.0-31.0); MEAN CORPUSCULAR HGB CONC 29.9 g/dL (33.0-36.5); MEAN CORPUSCULAR VOLUME 64.5 FL (78-98); MEAN PLATELET VOLUME 6.6 FL (7.4-10.4); MONOCYTES # (AUTO) 1.3 X10'3 (0-0.9); MONOCYTES % (AUTO) 12.7 % (2-12); NEUTROPHILS # (AUTO) 6.4 X10'3 (1.8-7.7); NEUTROPHILS % (AUTO) 65.4 % (42-75); PLATELET COUNT 525 X10'3 (140-440); RED BLOOD COUNT 4.37 X10'6 (4.70-6.10); WHITE BLOOD COUNT 9.8 X10'3 (4.5-11.0)
[2020-08-02 05:30] LABS: ALBUMIN 1.9 G/DL (3.4-5.0); ANION GAP 14 (8-16); BLOOD UREA NITROGEN 54 MG/DL (7-18); BUN/CREATININE RATIO 5.8 (5.4-32.0); CHLORIDE 95 MMOL/L (99-107); CREATININE 9.26 MG/DL (0.60-1.10); GLUCOSE 105 MG/DL (70-104); SODIUM 134 MMOL/L (135-145); TOTAL CARBON DIOXIDE 24.6 MMOL/L (24-32); eGFR 6 ML/MIN
[2020-08-02 05:51] LABS: POTASSIUM 2.3 MMOL/L (3.5-5.1)
--- NOTE | 2020-08-02 05:54 | NUR ---
Critical Results paged to Dr. Alatorre. [phone] Chau, DX: MADDY, Critical Results - K+-2.3(down from 2.9) and Regan-6.0 (down from 6.9). Barby [phone]
[2020-08-02] MEDS: heparin, porcine 5000 units/ml vial SQ SCH ×2 (08:12→19:15)
[2020-08-02] MEDS: normal saline 1000ml 1,000 ML IV SCH (08:13)
[2020-08-02 09:11] LABS: PLATELET ESTIMATE INCREASED; TOTAL CELLS COUNTED 100
[2020-08-02 09:12] LABS: ANISOCYTOSIS 2+; ELLIPTOCYTES FEW; HYPOCHROMASIA 1+; MICROCYTOSIS 2+
[2020-08-02 09:13] LABS: TEAR DROP CELLS FEW
[2020-08-02 12:03] LABS: C DIFF ANTIGEN NEGATIVE (NEGATIVE); C DIFF SPECIMEN=DIARRHEA? ACCEPTABLE; C DIFFICILE TOXINS A&B NEGATIVE (Neg)
[2020-08-02] MEDS ORDERED: calcium gluconate inj. 1 GM in normal saline 100ml IV soln 90 ML IV ONE (13:55)
[2020-08-02] MEDS ORDERED: Potassium Cl inj 40 MEQ in normal saline 250ml IV soln 230 ML IV ONE (13:55)
[2020-08-02] MEDS ORDERED: Potassium Cl inj 40 MEQ in normal saline 250ml IV soln 250 ML IV ONE (14:07)
[2020-08-02] MEDS: metroNIDAZOLE-Flagyl 500mg/NS 100 ML IV SCH (15:42)
[2020-08-02] MEDS: Potassium Cl inj 40 MEQ in normal saline 1000ml 1,000 ML IV SCH ×2 (15:50→22:38)
--- NOTE | 2020-08-02 18:00 | NUR ---
Problems reprioritized. Patient report given, questions answered & plan of care reviewed with Willie KRISHNAMURTHY.
[2020-08-02] MEDS: carvedilol 6.25mg tablet PO SCH (19:14)
[2020-08-02] MEDS: ciprofloxacin lact 400MG/200ML 200 ML IV SCH (22:21)
[2020-08-03] VITALS (7 sets, daily range): BP systolic 90–172; BP diastolic 50–69
[2020-08-03] MEDS: metroNIDAZOLE-Flagyl 500mg/NS 100 ML IV SCH ×3 (00:33→16:31)
[2020-08-03] MEDS: Potassium Cl inj 40 MEQ in normal saline 1000ml 1,000 ML IV SCH ×3 (04:16→19:10)
[2020-08-03 05:56] LABS: BASOPHILS % (AUTO) 0.4 % (0-1); EOSINOPHILS # (AUTO) 0.1 X10'3 (0-0.9); EOSINOPHILS % (AUTO) 1.6 % (0-6); HEMATOCRIT 26.7 % (42.0-52.0); HEMOGLOBIN 7.8 g/dl (14.0-17.9); LYMPHOCYTES # (AUTO) 1.1 X10'3 (1.1-4.8); LYMPHOCYTES % (AUTO) 12.9 % (21-51); MEAN CORPUSCULAR HGB CONC 29.4 g/dL (33.0-36.5); MEAN CORPUSCULAR VOLUME 64.5 FL (78-98); MEAN PLATELET VOLUME 6.4 FL (7.4-10.4); MONOCYTES % (AUTO) 11.8 % (2-12); NEUTROPHILS # (AUTO) 6.3 X10'3 (1.8-7.7); NEUTROPHILS % (AUTO) 73.3 % (42-75); PLATELET COUNT 451 X10'3 (140-440); RED BLOOD COUNT 4.13 X10'6 (4.70-6.10); RED CELL DISTRIBUTION WIDTH 20.4 % (11.5-14.5); WHITE BLOOD COUNT 8.5 X10'3 (4.5-11.0)
[2020-08-03 06:01] LABS: ALBUMIN 1.8 G/DL (3.4-5.0); ANION GAP 11 (8-16); BLOOD UREA NITROGEN 56 MG/DL (7-18); BUN/CREATININE RATIO 8.5 (5.4-32.0); CHLORIDE 101 MMOL/L (99-107); CREATININE 6.61 MG/DL (0.60-1.10); GLUCOSE 108 MG/DL (70-104); SODIUM 136 MMOL/L (135-145); TOTAL CARBON DIOXIDE 24.1 MMOL/L (24-32); eGFR 9 ML/MIN
[2020-08-03 06:04] LABS: POTASSIUM 2.9 MMOL/L (3.5-5.1)
--- NOTE | 2020-08-03 06:30 | NUR ---
Patient in room PCU 3009. I have received report from Willie KRISHNAMURTHY and had the opportunity to ask questions and assume patient care.
--- NOTE | 2020-08-03 06:57 | NUR ---
Paged Dr. Alatorre PAGER ID: [phone] MESSAGE: LEVI Mcdonald RN ext [phone]. RE: Johnnie Herrera. K 2.9, ca 6.0. Can I get replacement order for K and Ca?
[2020-08-03 07:57] LABS: ANISOCYTOSIS 3+; ELLIPTOCYTES FEW; HYPOCHROMASIA 1+; MICROCYTOSIS 2+; PLATELET ESTIMATE INCREASED; TEAR DROP CELLS FEW; TOTAL CELLS COUNTED 100
[2020-08-03 07:58] LABS: BURR CELLS FEW
[2020-08-03 07:59] LABS: POLYCHROMASIA FEW
[2020-08-03] MEDS ORDERED: potassium Cl 20 mEq SR tablet PO STA (09:39)
[2020-08-03] MEDS: carvedilol 6.25mg tablet PO SCH ×2 (09:45→20:00)
[2020-08-03] MEDS: multivitamins, therapeutics tablet PO SCH (09:45)
[2020-08-03] MEDS: heparin, porcine 5000 units/ml vial SQ SCH ×2 (09:46→20:28)
[2020-08-03] MEDS: ciprofloxacin lact 400MG/200ML 200 ML IV SCH ×2 (09:58→20:27)
[2020-08-03] MEDS: calcium carbonate 500mg chew tablet PO SCH ×2 (10:36→20:27)
[2020-08-03 10:47] LABS: MAGNESIUM 1.7 MG/DL (1.5-2.4)
--- NOTE | 2020-08-03 15:06 | NUR ---
Urine sample from Baeza cath were sent to the lab
[2020-08-03 15:42] LABS: CLARITY,URINE CLEAR (Clear); COLOR,URINE YELLOW (Yellow); GLUCOSE, URINE NEGATIVE (Neg); KETONES,URINE NEGATIVE (Neg); LEUKOCYTE ESTERASE ,URINE NEGATIVE (Neg); NITRITES, URINE NEGATIVE (Neg); OCCULT BLOOD,URINE MODERATE (Neg); PROTEIN,URINE 100 mg/dl (Neg); UROBILINOGEN,URINE 0.2 E.U/dL (0.2-1.0)
[2020-08-03 15:53] LABS: SODIUM,URINE RANDOM < 15 MEQ/L
[2020-08-03 15:55] LABS: TOTAL PROTEIN,URINE RANDOM 170.4 MG/DL
[2020-08-03 16:43] LABS: UA COLLECTION TYPE FOLEY CATH; UA EOSINOPHILS NO EOS /HPF
[2020-08-03 16:47] LABS: FINE GRANULAR CAST 0-3 /LPF (NEGATIVE); MUCUS STRANDS FEW /LPF (Neg)
[2020-08-03 16:49] LABS: COARSE GRANULAR CAST 0-3 /LPF (NEGATIVE)
[2020-08-03 17:02] LABS: WBC,URINE 0-4 /HPF (0-4)
[2020-08-03 17:03] LABS: BACTERIA,URINE FEW /HPF (Neg); SQUAMOUS EPITHELIAL CELL,UR FEW /LPF (FEW)
[2020-08-03 17:04] LABS: CAL OXALATE CRYSTALS 1+ /HPF (NEGATIVE)
[2020-08-03] MEDS ORDERED: potassium Cl 20 mEq SR tablet PO ONE (18:10)
--- NOTE | 2020-08-03 18:42 | NUR ---
Problems reprioritized. Patient report given, questions answered & plan of care reviewed with Pat RN.
[2020-08-03] MEDS: lactobacillus rhamnosus 10,000 MMU CELLS/CAPSULE PO SCH (20:27)
[2020-08-04] MEDS: metroNIDAZOLE-Flagyl 500mg/NS 100 ML IV SCH ×4 (00:08→23:02)
[2020-08-04] MEDS: Potassium Cl inj 40 MEQ in normal saline 1000ml 1,000 ML IV SCH ×4 (01:50→22:22)
[2020-08-04 02:30] VITALS: BP 99/55
--- NOTE | 2020-08-04 05:30 | NUR ---
pt repositioning self in bed on own; aware of importance to prevent further skin breakdown Addendum: 08/04/20 at 0537 by Radha Degroot RN Amended: Links added.
--- NOTE | 2020-08-04 06:05 | NUR ---
Patient in room PCU 3009. I have received report from Makenna RN and had the opportunity to ask questions and assume patient care.
[2020-08-04 06:33] LABS: BASOPHILS % (AUTO) 0.5 % (0-1); EOSINOPHILS # (AUTO) 0.1 X10'3 (0-0.9); EOSINOPHILS % (AUTO) 1.6 % (0-6); HEMOGLOBIN 8.1 g/dl (14.0-17.9); LYMPHOCYTES # (AUTO) 1.2 X10'3 (1.1-4.8); LYMPHOCYTES % (AUTO) 15.3 % (21-51); MEAN CORPUSCULAR HEMOGLOBIN 19.4 PG (27.0-31.0); MEAN CORPUSCULAR HGB CONC 29.9 g/dL (33.0-36.5); MEAN PLATELET VOLUME 6.5 FL (7.4-10.4); MONOCYTES # (AUTO) 0.9 X10'3 (0-0.9); MONOCYTES % (AUTO) 10.8 % (2-12); NEUTROPHILS # (AUTO) 5.7 X10'3 (1.8-7.7); NEUTROPHILS % (AUTO) 71.8 % (42-75); PLATELET COUNT 456 X10'3 (140-440); RED BLOOD COUNT 4.15 X10'6 (4.70-6.10); RED CELL DISTRIBUTION WIDTH 19.7 % (11.5-14.5)
[2020-08-04 06:52] LABS: ALBUMIN 1.8 G/DL (3.4-5.0); ANION GAP 12 (8-16); BLOOD UREA NITROGEN 44 MG/DL (7-18); BUN/CREATININE RATIO 13.1 (5.4-32.0); CALCIUM 6.3 MG/DL (8.5-10.1); CHLORIDE 106 MMOL/L (99-107); CREATININE 3.37 MG/DL (0.60-1.10); GLUCOSE 97 MG/DL (70-104); SODIUM 139 MMOL/L (135-145); eGFR 19 ML/MIN
[2020-08-04 06:56] LABS: POTASSIUM 2.9 MMOL/L (3.5-5.1)
[2020-08-04 07:00] VITALS: BP 106/60
--- NOTE | 2020-08-04 07:19 | NUR ---
Paged Dr. Khan PAGER ID: [phone] MESSAGE: Re: Johnnie Herrera [phone]. PT K 2.9. Pt on 40MEQ NS running at 150. Would you like replacement orders? Thank you Zoila KRISHNAMURTHY [phone]
[2020-08-04] MEDS: multivitamins, therapeutics tablet PO SCH (07:37)
[2020-08-04] MEDS: calcium carbonate 500mg chew tablet PO SCH ×2 (07:38→19:41)
[2020-08-04] MEDS: carvedilol 6.25mg tablet PO SCH ×2 (07:38→19:41)
[2020-08-04] MEDS: lactobacillus rhamnosus 10,000 MMU CELLS/CAPSULE PO SCH ×2 (07:38→19:41)
[2020-08-04] MEDS: heparin, porcine 5000 units/ml vial SQ SCH ×2 (07:38→19:41)
[2020-08-04] MEDS: ciprofloxacin lact 400MG/200ML 200 ML IV SCH ×2 (07:39→19:41)
[2020-08-04 10:31] LABS: PLATELET ESTIMATE INCREASED; TOTAL CELLS COUNTED 100
[2020-08-04 10:32] LABS: ANISOCYTOSIS 2+; BURR CELLS 2+; ELLIPTOCYTES 1+; MICROCYTOSIS 1+
--- NOTE | 2020-08-04 11:00 | NUR ---
Patient refused vital signs this afternoon and wound care for wounds on legs and sacrum. Patient refused elevating legs. Will continue to monitor.
[2020-08-04] MEDS ORDERED: potassium Cl 20 mEq SR tablet PO STA (13:10)
[2020-08-04 15:00] VITALS: BP 113/65
[2020-08-04 18:00] VITALS: BP 112/63
--- NOTE | 2020-08-04 18:36 | NUR ---
Problems reprioritized. Patient report given, questions answered & plan of care reviewed with Ana Maria KRISHNAMURTHY.
[2020-08-04 22:00] VITALS: BP 117/56
[2020-08-05 02:00] VITALS: BP 116/60
[2020-08-05] MEDS: Potassium Cl inj 40 MEQ in normal saline 1000ml 1,000 ML IV SCH ×3 (05:07→19:20)
[2020-08-05 05:28] LABS: BASOPHILS % (AUTO) 0.4 % (0-1); EOSINOPHILS # (AUTO) 0.2 X10'3 (0-0.9); EOSINOPHILS % (AUTO) 2.3 % (0-6); HEMATOCRIT 25.7 % (42.0-52.0); HEMOGLOBIN 7.6 g/dl (14.0-17.9); LYMPHOCYTES # (AUTO) 1.3 X10'3 (1.1-4.8); LYMPHOCYTES % (AUTO) 12.6 % (21-51); MEAN CORPUSCULAR HEMOGLOBIN 19.1 PG (27.0-31.0); MEAN CORPUSCULAR HGB CONC 29.5 g/dL (33.0-36.5); MEAN CORPUSCULAR VOLUME 64.8 FL (78-98); MEAN PLATELET VOLUME 6.2 FL (7.4-10.4); MONOCYTES # (AUTO) 0.8 X10'3 (0-0.9); MONOCYTES % (AUTO) 7.5 % (2-12); NEUTROPHILS # (AUTO) 8.2 X10'3 (1.8-7.7); NEUTROPHILS % (AUTO) 77.2 % (42-75); PLATELET COUNT 419 X10'3 (140-440); RED BLOOD COUNT 3.96 X10'6 (4.70-6.10); RED CELL DISTRIBUTION WIDTH 20.4 % (11.5-14.5); WHITE BLOOD COUNT 10.6 X10'3 (4.5-11.0)
[2020-08-05 05:59] LABS: ALBUMIN 1.7 G/DL (3.4-5.0); ANION GAP 11 (8-16); BLOOD UREA NITROGEN 28 MG/DL (7-18); BUN/CREATININE RATIO 15.1 (5.4-32.0); CALCIUM 7.2 MG/DL (8.5-10.1); CHLORIDE 110 MMOL/L (99-107); CREATININE 1.86 MG/DL (0.60-1.10); GLUCOSE 105 MG/DL (70-104); POTASSIUM 3.6 MMOL/L (3.5-5.1); SODIUM 141 MMOL/L (135-145); eGFR 38 ML/MIN
[2020-08-05 06:00] VITALS: BP 115/53
--- NOTE | 2020-08-05 06:00 | NUR ---
Problems reprioritized. Patient report given, questions answered & plan of care reviewed with Josselyn KRISHNAMURTHY.
--- NOTE | 2020-08-05 06:00 | NUR ---
Patient in room PCU 3009. I have received report from Ana Maria KRISHNAMURTHY and had the opportunity to ask questions and assume patient care.
--- NOTE | 2020-08-05 06:15 | NUR ---
Problems reprioritized. Patient report given, questions answered & plan of care reviewed with YESSY Fletcher.
[2020-08-05 06:26] LABS: ANISOCYTOSIS 3+; BURR CELLS 1+; HYPOCHROMASIA 1+; MICROCYTOSIS 2+; PLATELET ESTIMATE NORMAL; TOTAL CELLS COUNTED 100
[2020-08-05 06:27] LABS: POIKILOCYTOSIS 1+; TEAR DROP CELLS FEW
[2020-08-05] MEDS: heparin, porcine 5000 units/ml vial SQ SCH ×2 (07:44→19:21)
[2020-08-05] MEDS: carvedilol 6.25mg tablet PO SCH ×2 (07:44→19:20)
[2020-08-05] MEDS: lactobacillus rhamnosus 10,000 MMU CELLS/CAPSULE PO SCH ×2 (07:44→19:20)
[2020-08-05] MEDS: calcium carbonate 500mg chew tablet PO SCH ×2 (07:44→19:20)
[2020-08-05] MEDS: ciprofloxacin lact 400MG/200ML 200 ML IV SCH ×2 (07:44→19:20)
[2020-08-05] MEDS: multivitamins, therapeutics tablet PO SCH (07:44)
[2020-08-05] MEDS: metroNIDAZOLE-Flagyl 500mg/NS 100 ML IV SCH ×2 (07:45→17:24)
[2020-08-05 11:52] VITALS: BP 98/66
[2020-08-05 15:55] VITALS: BP 109/73
--- NOTE | 2020-08-05 16:00 | NUR ---
orthostatic vitals negative
--- NOTE | 2020-08-05 16:54 | NUR ---
PAGER ID: [phone] MESSAGE: Johnnie PradhanSharon [phone] A1C elevated last 2 visits. Last one 6.9 in March. Do you want an A1C this visit? Josselyn [phone]
[2020-08-05 18:00] VITALS: BP 111/70
--- NOTE | 2020-08-05 18:14 | NUR ---
Gave report to Ana Maria Joshi RN.
[2020-08-05 22:00] VITALS: BP 115/81
[2020-08-05] MEDS: metroNIDAZOLE 500mg tablet PO SCH (23:11)
[2020-08-06 02:00] VITALS: BP 102/68
[2020-08-06] MEDS: Potassium Cl inj 40 MEQ in normal saline 1000ml 1,000 ML IV SCH ×2 (02:38→08:14)
[2020-08-06 06:00] VITALS: BP 113/59
--- NOTE | 2020-08-06 06:06 | NUR ---
Problems reprioritized. Patient report given, questions answered & plan of care reviewed with YESSY Fletcher.
[2020-08-06 06:12] LABS: BASOPHILS % (AUTO) 0.4 % (0-1); EOSINOPHILS # (AUTO) 0.2 X10'3 (0-0.9); EOSINOPHILS % (AUTO) 1.7 % (0-6); LYMPHOCYTES # (AUTO) 1.6 X10'3 (1.1-4.8); LYMPHOCYTES % (AUTO) 13.6 % (21-51); MEAN PLATELET VOLUME 6.3 FL (7.4-10.4); MONOCYTES # (AUTO) 0.7 X10'3 (0-0.9); MONOCYTES % (AUTO) 6.2 % (2-12); NEUTROPHILS % (AUTO) 78.1 % (42-75); PLATELET COUNT 438 X10'3 (140-440); WHITE BLOOD COUNT 11.5 X10'3 (4.5-11.0)
[2020-08-06 06:17] LABS: ALBUMIN 1.8 G/DL (3.4-5.0); ANION GAP 6 (8-16); BLOOD UREA NITROGEN 15 MG/DL (7-18); BUN/CREATININE RATIO 9.9 (5.4-32.0); CHLORIDE 113 MMOL/L (99-107); CREATININE 1.52 MG/DL (0.60-1.10); GLUCOSE 116 MG/DL (70-104); POTASSIUM 3.9 MMOL/L (3.5-5.1); SODIUM 141 MMOL/L (135-145); TOTAL CARBON DIOXIDE 22.5 MMOL/L (24-32); eGFR 47 ML/MIN
[2020-08-06] MEDS: carvedilol 6.25mg tablet PO SCH (08:05)
[2020-08-06] MEDS: calcium carbonate 500mg chew tablet PO SCH (08:05)
[2020-08-06] MEDS: ciprofloxacin lact 400MG/200ML 200 ML IV SCH (08:05)
[2020-08-06] MEDS: lactobacillus rhamnosus 10,000 MMU CELLS/CAPSULE PO SCH (08:05)
[2020-08-06] MEDS: multivitamins, therapeutics tablet PO SCH (08:06)
[2020-08-06] MEDS: metroNIDAZOLE 500mg tablet PO SCH (08:06)
[2020-08-06] MEDS: heparin, porcine 5000 units/ml vial SQ SCH (08:16)
[2020-08-06 08:41] LABS: HEMATOCRIT 27.8 % (42.0-52.0); HEMOGLOBIN 8.5 g/dl (14.0-17.9); MEAN CORPUSCULAR HEMOGLOBIN 19.9 PG (27.0-31.0); MEAN CORPUSCULAR VOLUME 65.2 FL (78-98); RED BLOOD COUNT 4.27 X10'6 (4.70-6.10)
[2020-08-06 08:42] LABS: MEAN CORPUSCULAR HGB CONC 30.6 g/dL (33.0-36.5); RED CELL DISTRIBUTION WIDTH 20.2 % (11.5-14.5)
[2020-08-06 08:48] LABS: ANISOCYTOSIS 3+; HYPOCHROMASIA 1+; MICROCYTOSIS 2+; PLATELET ESTIMATE NORMAL; TEAR DROP CELLS FEW; TOTAL CELLS COUNTED 100
[2020-08-06 08:49] LABS: ELLIPTOCYTES FEW; POIKILOCYTOSIS 1+
[2020-08-06 11:00] VITALS: BP 116/62
[2020-08-06] MEDS ORDERED: METR-159 PO (13:30)
[2020-08-06] MEDS ORDERED: CIPR-230 PO (13:30)
--- NOTE | 2020-08-06 14:40 | NUR ---
Patient deferred to have R buttock wound photo taken. Privacy respected
--- NOTE | 2020-08-06 14:41 | NUR ---
Per MD orders, patient stable for discharge home. New prescriptions called in to pharmacy of preference. Discharge packet reviewed with patient at bedside and all questions answered to patient satisfaction. Tele monitoring discontinued. PIV discontinued; cannula intact. All belongings sent with patient. Transferred to taxi via wheelchair accompanied by aide.
== END 2020-08-06 15:00 | disposition home or self-care (01) | DRG 391 ==
LOC: ER 18:20 → ED HOLD 22:44 → PCU 3S 23:35
PROVIDERS: ADMIT Internal Medicine; ATTEND Internal Medicine
DX: K52.9 Noninfective gastroenteritis and colitis, unspecified (principal); N17.0 Acute kidney failure with tubular necrosis; E87.1 Hypo-osmolality and hyponatremia; E86.0 Dehydration; D50.9 Iron deficiency anemia, unspecified; E87.6 Hypokalemia; I10 Essential (primary) hypertension; Z87.442 Personal history of urinary calculi; Z93.3 Colostomy status; D63.8 Anemia in other chronic diseases classified elsewhere; E83.52 Hypercalcemia
CPT/HCPCS: 36415; 74176; 76775; 80048; 80053; 81001; 82330; 82570; 83605; 83690; 83735; 83880; 84100; 84132; 84133; 84145; 84156; 84300; 85007; 85025; 87040; 87045; 87046; 87081; 87207; 87324; 87449; 93306; 93308; 96374; 96375; 97161; 97530; 99285; C9113; G0378; J0610; J0744; J1644; J2405; J3480; J3490; J7030; J7050

== ENCOUNTER 2022-09-19 16:15 | Inpatient (IN) | payer BC ==
[~2022-09-19] VITALS: Ht 175.3 cm; Wt 120.0 kg
[~2022-09-19 16:15] MED LIST changes: +IBUP-1985 PO; +MULT-1085 PO
[2022-09-19 18:01] LABS: ALANINE AMINOTRANSFERASE 22 U/L (12-78); ALBUMIN 2.3 G/DL (3.4-5.0); ALBUMIN/GLOBULIN RATIO 0.5 (1.1-1.5); ALKALINE PHOSPHATASE 92 IU/L (46-116); ANION GAP 7 (8-16); ASPARTATE AMINO TRANSFERASE 19 U/L (10-37); BILIRUBIN,TOTAL 0.3 MG/DL (0.1-1.0); BLOOD UREA NITROGEN 20 MG/DL (7-18); BUN/CREATININE RATIO 15.3 (5.4-32.0); CALCIUM 8.2 MG/DL (8.5-10.1); CHLORIDE 105 MMOL/L (99-107); CREATININE 1.31 MG/DL (0.60-1.10); GLUCOSE 108 MG/DL (70-104); POTASSIUM 4.1 MMOL/L (3.5-5.1); SODIUM 143 MMOL/L (135-145); TOTAL CARBON DIOXIDE 30.7 MMOL/L (24-32); TOTAL PROTEIN 6.9 G/DL (6.4-8.2); eGFR 56 ML/MIN
[2022-09-19 18:21] LABS: MEAN CORPUSCULAR HEMOGLOBIN 16.1 PG (27.0-31.0); MEAN CORPUSCULAR HGB CONC 26.7 g/dL (33.0-36.5); MEAN PLATELET VOLUME 6.7 FL (7.4-10.4); PLATELET COUNT 434 X10'3 (140-440); RED BLOOD COUNT 3.56 X10'6 (4.70-6.10); RED CELL DISTRIBUTION WIDTH 20.5 % (11.5-14.5); WHITE BLOOD COUNT 10.3 X10'3 (4.5-11.0)
[2022-09-19 18:27] LABS: HEMATOCRIT 21.4 % (42.0-52.0); HEMOGLOBIN 5.7 g/dl (14.0-17.9)
[2022-09-19 18:34] LABS: TOTAL CELLS COUNTED 100
[2022-09-19 18:35] LABS: ANISOCYTOSIS 3+; HYPOCHROMASIA 3+; MICROCYTOSIS 2+; PLATELET ESTIMATE NORMAL; POIKILOCYTOSIS 1+
[2022-09-19 18:36] LABS: ELLIPTOCYTES FEW; SPHEROCYTES FEW; TEAR DROP CELLS FEW
--- NOTE | 2022-09-19 19:15 | NUR ---
This nurse agrees with Nicol BARNARD assessment of pt
--- NOTE | 2022-09-19 19:20 | NUR ---
Please contact if change of condition: pt gave consent for the following to be including in his plan of care. FOUZIA :RELATIONSHIP SISTER OLAMIDE AUGUSTO: RELATIONSHIP CLOSE FRIEND
[2022-09-19 20:17] LABS: APTT 27 SECONDS (22-32)
[2022-09-19] MEDS ORDERED: furosemide 10 MG/1 ML 10ml inj IV ONE (20:45)
[2022-09-19 21:58] VITALS: BP 146/80
[2022-09-19 22:19] VITALS: BP 147/74
[2022-09-19 22:34] VITALS: BP_SYST 146; BP_SYST 147; BP_DIAS 80
[2022-09-19 22:59] VITALS: BP 138/70
[2022-09-19 23:27] VITALS: BP 138/76
[2022-09-20] VITALS (13 sets, daily range): BP systolic 119–138; BP diastolic 57–78
--- NOTE | 2022-09-20 01:25 | NUR ---
pt on a hospital bed
[2022-09-20] MEDS ORDERED: mag hydrox/Alum hydrox/simeth 30ml oral suspension PO PRN (01:45)
[2022-09-20] MEDS ORDERED: metoclopramide 5 mg/ml inj IV PRN (01:45)
[2022-09-20] MEDS ORDERED: magnesium hydroxide 30ml (MOM) UD suspension PO PRN (01:45)
[2022-09-20] MEDS ORDERED: ondansetron 4mg rapidly disintigrating tab PO PRN (01:45)
[2022-09-20] MEDS ORDERED: ondansetron/PF 4mg/2ml inj IV PRN (01:45)
[2022-09-20] MEDS ORDERED: diphenhydrAMINE 50 mg/ml inj IV PRN (01:45)
[2022-09-20] MEDS ORDERED: bisacodyl 10mg suppository rectal RC PRN (01:45)
[2022-09-20 02:30] LABS: HEMOGLOBIN A1C 5.9 % (4.5-6.2)
[2022-09-20] MEDS: normal saline 1000ml 1,000 ML IV SCH (02:37)
[2022-09-20 02:56] LABS: MAGNESIUM 1.5 MG/DL (1.5-2.4); PHOSPHORUS 2.8 MG/DL (2.3-4.5)
--- NOTE | 2022-09-20 03:26 | NUR ---
see transfusion flow sheet for VS
[2022-09-20] MEDS ORDERED: NO HOME MEDS (05:47)
[2022-09-20] MEDS: docusate sod 100mg capsule PO SCH ×2 (07:49→20:00)
[2022-09-20] MEDS: pantoprazole 40mg Tablet.DR PO SCH (07:50)
[2022-09-20] MEDS ORDERED: furosemide 10 MG/1 ML 10ml inj IV SCH (08:00)
[2022-09-20 09:25] LABS: BASOPHILS # (AUTO) 0.2 X10'3 (0-0.2); BASOPHILS % (AUTO) 1.7 % (0-1); EOSINOPHILS # (AUTO) 0.2 X10'3 (0-0.9); HEMATOCRIT 28.3 % (42.0-52.0); HEMOGLOBIN 7.9 g/dl (14.0-17.9); LYMPHOCYTES # (AUTO) 0.7 X10'3 (1.1-4.8); LYMPHOCYTES % (AUTO) 7.9 % (21-51); MEAN CORPUSCULAR HEMOGLOBIN 18.2 PG (27.0-31.0); MEAN CORPUSCULAR HGB CONC 27.9 g/dL (33.0-36.5); MEAN PLATELET VOLUME 8.2 FL (7.4-10.4); MONOCYTES # (AUTO) 0.9 X10'3 (0-0.9); MONOCYTES % (AUTO) 9.2 % (2-12); NEUTROPHILS # (AUTO) 7.4 X10'3 (1.8-7.7); NEUTROPHILS % (AUTO) 79.2 % (42-75); PLATELET COUNT 432 X10'3 (140-440); RED BLOOD COUNT 4.35 X10'6 (4.70-6.10); RED CELL DISTRIBUTION WIDTH 26.5 % (11.5-14.5); WHITE BLOOD COUNT 9.4 X10'3 (4.5-11.0)
[2022-09-20 09:35] LABS: ALANINE AMINOTRANSFERASE 20 U/L (12-78); ALBUMIN 2.5 G/DL (3.4-5.0); ALBUMIN/GLOBULIN RATIO 0.5 (1.1-1.5); ALKALINE PHOSPHATASE 98 IU/L (46-116); ANION GAP 6 (8-16); ASPARTATE AMINO TRANSFERASE 21 U/L (10-37); BILIRUBIN,TOTAL 0.8 MG/DL (0.1-1.0); BLOOD UREA NITROGEN 17 MG/DL (7-18); BUN/CREATININE RATIO 12.6 (5.4-32.0); CALCIUM 8.2 MG/DL (8.5-10.1); CHLORIDE 103 MMOL/L (99-107); CREATININE 1.35 MG/DL (0.60-1.10); GLUCOSE 109 MG/DL (70-104); POTASSIUM 3.8 MMOL/L (3.5-5.1); SODIUM 143 MMOL/L (135-145); TOTAL CARBON DIOXIDE 33.9 MMOL/L (24-32); TOTAL PROTEIN 7.4 G/DL (6.4-8.2); eGFR 54 ML/MIN
--- NOTE | 2022-09-20 18:00 | NUR ---
Patient in room SWETHA 345. I have received report from YESSY Rothman and had the opportunity to ask questions and assume patient care.
--- NOTE | 2022-09-20 18:31 | NUR ---
Problems reprioritized. Patient report given, questions answered & plan of care reviewed with CEDRICK KRISHNAMURTHY.
[2022-09-20] MEDS: furosemide 10 MG/1 ML 10ml inj IV SCH (20:43)
[2022-09-20] MEDS ORDERED: temazepam 15mg capsule PO PRN (21:00)
[2022-09-21 06:00] VITALS: BP 130/56
--- NOTE | 2022-09-21 06:43 | NUR ---
Problems reprioritized. Patient report given, questions answered & plan of care reviewed with YESSY Plunkett.
[2022-09-21 06:44] LABS: BASOPHILS # (AUTO) 0.2 X10'3 (0-0.2); BASOPHILS % (AUTO) 1.5 % (0-1); EOSINOPHILS # (AUTO) 0.2 X10'3 (0-0.9); EOSINOPHILS % (AUTO) 2.4 % (0-6); HEMOGLOBIN 7.6 g/dl (14.0-17.9); LYMPHOCYTES # (AUTO) 1.1 X10'3 (1.1-4.8); LYMPHOCYTES % (AUTO) 10.3 % (21-51); MEAN PLATELET VOLUME 8.2 FL (7.4-10.4); MONOCYTES # (AUTO) 0.9 X10'3 (0-0.9); MONOCYTES % (AUTO) 9.2 % (2-12); NEUTROPHILS # (AUTO) 7.8 X10'3 (1.8-7.7); NEUTROPHILS % (AUTO) 76.6 % (42-75); PLATELET COUNT 425 X10'3 (140-440); WHITE BLOOD COUNT 10.2 X10'3 (4.5-11.0)
--- NOTE | 2022-09-21 07:02 | NUR ---
Patient in room SWETHA 345. I have received report from Alexus and had the opportunity to ask questions and assume patient care.
[2022-09-21 07:06] LABS: % IRON SATURATION 4 % (11-46); IRON 13 UG/DL (53-167); TOTAL IRON BINDING CAPACITY 363 UG/DL (259-388)
[2022-09-21 07:10] LABS: ALANINE AMINOTRANSFERASE 18 U/L (12-78); ALBUMIN 2.3 G/DL (3.4-5.0); ALBUMIN/GLOBULIN RATIO 0.5 (1.1-1.5); ALKALINE PHOSPHATASE 90 IU/L (46-116); ANION GAP 1 (8-16); ASPARTATE AMINO TRANSFERASE 16 U/L (10-37); BILIRUBIN,TOTAL 0.6 MG/DL (0.1-1.0); BLOOD UREA NITROGEN 17 MG/DL (7-18); BUN/CREATININE RATIO 11.3 (5.4-32.0); CALCIUM 7.9 MG/DL (8.5-10.1); CHLORIDE 101 MMOL/L (99-107); CHOLESTEROL 82 MG/DL (0-200); GLUCOSE 96 MG/DL (70-104); HDL CHOLESTEROL 27 MG/DL (35-60); LDL CHOLESTEROL 47 MG/DL (50-100); POTASSIUM 3.1 MMOL/L (3.5-5.1); SODIUM 140 MMOL/L (135-145); TOTAL CARBON DIOXIDE 37.6 MMOL/L (24-32); TOTAL PROTEIN 6.7 G/DL (6.4-8.2); TRIGLYCERIDES 67 MG/DL (20-135); eGFR 48 ML/MIN
[2022-09-21 07:30] LABS: HEMATOCRIT 25.5 % (42.0-52.0); MEAN CORPUSCULAR HEMOGLOBIN 19.2 PG (27.0-31.0); MEAN CORPUSCULAR HGB CONC 29.8 g/dL (33.0-36.5); MEAN CORPUSCULAR VOLUME 64.3 FL (78-98); RED BLOOD COUNT 3.97 X10'6 (4.70-6.10); RED CELL DISTRIBUTION WIDTH 25.1 % (11.5-14.5)
[2022-09-21 07:47] LABS: ANISOCYTOSIS 3+; HYPOCHROMASIA 1+; MICROCYTOSIS 2+; PLATELET ESTIMATE NORMAL; POIKILOCYTOSIS 1+; POLYCHROMASIA 1+
[2022-09-21 07:48] LABS: GIANT PLATELET FEW; LARGE PLATELETS FEW
[2022-09-21] MEDS: docusate sod 100mg capsule PO SCH (08:00)
[2022-09-21] MEDS: furosemide 10 MG/1 ML 10ml inj IV SCH ×2 (08:04→19:52)
[2022-09-21] MEDS: pantoprazole 40mg Tablet.DR PO SCH (08:04)
--- NOTE | 2022-09-21 08:12 | NUR ---
PAGER ID: [phone] MESSAGE: Johnnie Herrera in [phone] has potassium of 3.1. Can I order replacement protocol? Pt is on shar. -Kiarra [phone]
[2022-09-21] MEDS ORDERED: potassium Cl 40MEQ/1/2NS 520ml 520 ML IV PRN (08:15)
[2022-09-21] MEDS ORDERED: magnesium 4gm in 100ml NS 100 ML IV PRN (08:15)
[2022-09-21] MEDS ORDERED: magnesium Cl slow-release 64mg tablet PO PRN (08:15)
[2022-09-21] MEDS ORDERED: potassium Cl 20 mEq SR tablet PO PRN (08:15)
[2022-09-21] MEDS: potassium Cl 20 mEq SR tablet PO PRN ×3 (08:58→16:45)
[2022-09-21] MEDS: iron sucrose complex injection 200 MG in normal saline 100ml IV soln 100 ML IV SCH (08:58)
[2022-09-21 09:07] LABS: MAGNESIUM 1.5 MG/DL (1.5-2.4)
[2022-09-21 10:00] VITALS: BP 111/42
[2022-09-21] MEDS ORDERED: iohexol 300mg/ml 100ml inj. ONE (11:52)
[2022-09-21] MEDS: chloestyramine/aspartame 4gm packet PO SCH ×2 (12:05→16:00)
[2022-09-21] MEDS: loperamide 2mg capsule PO PRN ×2 (12:51→22:10)
[2022-09-21] MEDS: metolazone 2.5mg tablet PO SCH (12:52)
--- NOTE | 2022-09-21 16:00 | NUR ---
Patient in room SWETHA 345. I have received report from YESSY PINTO and had the opportunity to ask questions and assume patient care.
--- NOTE | 2022-09-21 16:30 | NUR ---
I have reviewed and agree with all interventions, assessments performed and documented by YESSY PINTO.
[2022-09-21 18:00] VITALS: BP 115/55
--- NOTE | 2022-09-21 18:14 | NUR ---
Problems reprioritized. Patient report given, questions answered & plan of care reviewed with AMALIA KRISHNAMURTHY.
--- NOTE | 2022-09-21 18:17 | NUR ---
Patient in room SWETHA 345. I have received report from YESSY Cook and had the opportunity to ask questions and assume patient care.
[2022-09-21] MEDS: K and/or MAG REPLACEMENT MC SCH (19:52)
[2022-09-21 19:53] VITALS: BP 135/82
[2022-09-21 22:00] VITALS: BP 110/52
--- NOTE | 2022-09-21 22:20 | NUR ---
Dr. Longo has been notified regarding pt. HR 150-160.Pt. HR increased when he got up do used the restroom .Dr. Longo gave me a order for Metoprolol 25 mg BID. We will continue with pt. care.
[2022-09-21] MEDS: metoprolol tartrate 25mg tablet PO SCH (22:55)
[2022-09-22] MEDS: normal saline 1000ml 1,000 ML IV SCH (01:45)
[2022-09-22 06:00] VITALS: BP_SYST 110; BP_SYST 112; BP_DIAS 56; BP_DIAS 72
[2022-09-22 06:25] LABS: BASOPHILS # (AUTO) 0.1 X10'3 (0-0.2); BASOPHILS % (AUTO) 1.6 % (0-1); EOSINOPHILS # (AUTO) 0.2 X10'3 (0-0.9); EOSINOPHILS % (AUTO) 2.4 % (0-6); LYMPHOCYTES # (AUTO) 1.1 X10'3 (1.1-4.8); LYMPHOCYTES % (AUTO) 11.8 % (21-51); MEAN PLATELET VOLUME 6.7 FL (7.4-10.4); MONOCYTES # (AUTO) 0.9 X10'3 (0-0.9); NEUTROPHILS # (AUTO) 6.6 X10'3 (1.8-7.7); NEUTROPHILS % (AUTO) 74.2 % (42-75); PLATELET COUNT 394 X10'3 (140-440); WHITE BLOOD COUNT 8.9 X10'3 (4.5-11.0)
--- NOTE | 2022-09-22 06:35 | NUR ---
Problems reprioritized. Patient report given, questions answered & plan of care reviewed with YESSY Raya.
--- NOTE | 2022-09-22 06:37 | NUR ---
Patient in room SWET[facility] 345. I have received report from Alexus KRISHNAMURTHY and had the opportunity to ask questions and assume patient care.
[2022-09-22 06:42] LABS: ALANINE AMINOTRANSFERASE 14 U/L (12-78); ALBUMIN 2.2 G/DL (3.4-5.0); ALBUMIN/GLOBULIN RATIO 0.5 (1.1-1.5); ALKALINE PHOSPHATASE 88 IU/L (46-116); ASPARTATE AMINO TRANSFERASE 17 U/L (10-37); BILIRUBIN,TOTAL 0.5 MG/DL (0.1-1.0); BLOOD UREA NITROGEN 18 MG/DL (7-18); BUN/CREATININE RATIO 11.5 (5.4-32.0); CALCIUM 7.8 MG/DL (8.5-10.1); CREATININE 1.57 MG/DL (0.60-1.10); GLUCOSE 95 MG/DL (70-104); MAGNESIUM 1.6 MG/DL (1.5-2.4); TOTAL CARBON DIOXIDE 37.9 MMOL/L (24-32); TOTAL PROTEIN 6.5 G/DL (6.4-8.2); eGFR 45 ML/MIN
[2022-09-22 06:49] LABS: ANION GAP 2 (8-16); CHLORIDE 101 MMOL/L (99-107); POTASSIUM 3.3 MMOL/L (3.5-5.1); SODIUM 141 MMOL/L (135-145)
[2022-09-22 07:47] LABS: HEMOGLOBIN 8.3 g/dl (14.0-17.9); MEAN CORPUSCULAR HEMOGLOBIN 20.1 PG (27.0-31.0); MEAN CORPUSCULAR HGB CONC 30.8 g/dL (33.0-36.5); MEAN CORPUSCULAR VOLUME 65.4 FL (78-98); RED BLOOD COUNT 4.12 X10'6 (4.70-6.10)
[2022-09-22 07:48] LABS: RED CELL DISTRIBUTION WIDTH 26.3 % (11.5-14.5)
[2022-09-22] MEDS: mineral oil/petrolatum, white cream 113gm jar TP SCH ×2 (08:00→19:40)
[2022-09-22] MEDS: K and/or MAG REPLACEMENT MC SCH ×2 (08:00→19:24)
[2022-09-22] MEDS: metoprolol tartrate 25mg tablet PO SCH ×2 (08:00→19:37)
[2022-09-22] MEDS: iron sucrose complex injection 200 MG in normal saline 100ml IV soln 100 ML IV SCH (08:13)
[2022-09-22] MEDS: pantoprazole 40mg Tablet.DR PO SCH (08:13)
[2022-09-22] MEDS: metolazone 2.5mg tablet PO SCH (08:14)
[2022-09-22] MEDS: loperamide 2mg capsule PO PRN (08:14)
[2022-09-22 08:23] LABS: ACANTHOCYTES FEW; ANISOCYTOSIS 3+; HYPOCHROMASIA 1+; MICROCYTOSIS 2+; PLATELET ESTIMATE NORMAL; SCHISTOCYTES FEW
[2022-09-22 09:14] LABS: PSA, FREE 0.45 ng/mL
[2022-09-22] MEDS: furosemide 40mg/4ml inj IV SCH ×2 (09:30→19:37)
--- NOTE | 2022-09-22 09:50 | NUR ---
pt refused Eucerin cream. Addendum: 09/22/22 at 1009 by Juliane Goins RN Amended: Links added.
[2022-09-22 10:00] VITALS: BP 107/58
[2022-09-22] MEDS ORDERED: diphenoxylate/atropine tablet (Lomotil) PO PRN (11:25)
[2022-09-22] MEDS: chloestyramine/aspartame 4gm packet PO SCH ×2 (12:42→16:00)
[2022-09-22 18:00] VITALS: BP 115/61
--- NOTE | 2022-09-22 18:37 | NUR ---
Problems reprioritized. Patient report given, questions answered & plan of care reviewed with AMALIA frank.
[2022-09-22] MEDS: diphenhydrAMINE 25mg capsule PO PRN (19:05)
[2022-09-22 19:35] VITALS: BP 97/64
--- NOTE | 2022-09-22 20:30 | NUR ---
Patient in room [facility] 345. I have received report from YESSY hirsch and had the opportunity to ask questions and assume patient care.
[2022-09-22 22:00] VITALS: BP 102/51
--- NOTE | 2022-09-23 06:19 | NUR ---
Problems reprioritized. Patient report given, questions answered & plan of care reviewed with YESSY Min.
--- NOTE | 2022-09-23 06:45 | NUR ---
Patient in room SWET[facility] 345. I have received report from Alexus KRISHNAMURTHY and had the opportunity to ask questions and assume patient care.
[2022-09-23 06:49] VITALS: BP 105/54
[2022-09-23 06:56] LABS: ALANINE AMINOTRANSFERASE 14 U/L (12-78); ALBUMIN 2.6 G/DL (3.4-5.0); ALBUMIN/GLOBULIN RATIO 0.5 (1.1-1.5); ALKALINE PHOSPHATASE 91 IU/L (46-116); ANION GAP 5 (8-16); ASPARTATE AMINO TRANSFERASE 12 U/L (10-37); BILIRUBIN,TOTAL 0.5 MG/DL (0.1-1.0); BLOOD UREA NITROGEN 19 MG/DL (7-18); BUN/CREATININE RATIO 12.9 (5.4-32.0); CALCIUM 8.1 MG/DL (8.5-10.1); CHLORIDE 100 MMOL/L (99-107); CREATININE 1.47 MG/DL (0.60-1.10); GLUCOSE 94 MG/DL (70-104); MAGNESIUM 1.7 MG/DL (1.5-2.4); POTASSIUM 3.4 MMOL/L (3.5-5.1); SODIUM 141 MMOL/L (135-145); TOTAL CARBON DIOXIDE 36.5 MMOL/L (24-32); TOTAL PROTEIN 7.4 G/DL (6.4-8.2); eGFR 49 ML/MIN
[2022-09-23 07:05] LABS: BASOPHILS # (AUTO) 0.1 X10'3 (0-0.2); BASOPHILS % (AUTO) 1.1 % (0-1); EOSINOPHILS # (AUTO) 0.3 X10'3 (0-0.9); EOSINOPHILS % (AUTO) 3.4 % (0-6); HEMATOCRIT 30.7 % (42.0-52.0); HEMOGLOBIN 8.6 g/dl (14.0-17.9); LYMPHOCYTES # (AUTO) 0.9 X10'3 (1.1-4.8); LYMPHOCYTES % (AUTO) 8.9 % (21-51); MEAN CORPUSCULAR HEMOGLOBIN 18.6 PG (27.0-31.0); MEAN CORPUSCULAR HGB CONC 28.1 g/dL (33.0-36.5); MEAN CORPUSCULAR VOLUME 65.9 FL (78-98); MEAN PLATELET VOLUME 6.7 FL (7.4-10.4); MONOCYTES # (AUTO) 0.9 X10'3 (0-0.9); MONOCYTES % (AUTO) 9.7 % (2-12); NEUTROPHILS # (AUTO) 7.5 X10'3 (1.8-7.7); NEUTROPHILS % (AUTO) 76.9 % (42-75); PLATELET COUNT 486 X10'3 (140-440); RED BLOOD COUNT 4.66 X10'6 (4.70-6.10); RED CELL DISTRIBUTION WIDTH 27.4 % (11.5-14.5); WHITE BLOOD COUNT 9.7 X10'3 (4.5-11.0)
[2022-09-23] MEDS: mineral oil/petrolatum, white cream 113gm jar TP SCH ×2 (08:00→20:00)
[2022-09-23] MEDS: furosemide 40mg/4ml inj IV SCH (08:00)
[2022-09-23] MEDS: K and/or MAG REPLACEMENT MC SCH ×2 (08:00→20:00)
[2022-09-23] MEDS: pantoprazole 40mg Tablet.DR PO SCH (08:29)
[2022-09-23] MEDS: metolazone 2.5mg tablet PO SCH (08:29)
[2022-09-23] MEDS: metoprolol tartrate 25mg tablet PO SCH ×2 (08:30→20:33)
[2022-09-23] MEDS: iron sucrose complex injection 200 MG in normal saline 100ml IV soln 100 ML IV SCH (08:30)
[2022-09-23 09:07] LABS: ANISOCYTOSIS 3+; HYPOCHROMASIA 2+; PLATELET ESTIMATE INCREASED
[2022-09-23 09:08] LABS: ELLIPTOCYTES FEW; MICROCYTOSIS 2+; POLYCHROMASIA 1+; STOMATOCYTES 1+; TEAR DROP CELLS 1+
[2022-09-23 09:09] LABS: SPHEROCYTES FEW
[2022-09-23] MEDS ORDERED: FLU VACC QS2022-23(6MOS UP)/PF 60 MCG/0.5 ML SYRINGE IMVAC ONE (10:00)
[2022-09-23] MEDS: diphenhydrAMINE 25mg capsule PO PRN ×2 (10:53→22:34)
[2022-09-23] MEDS: chloestyramine/aspartame 4gm packet PO SCH ×3 (10:53→16:16)
[2022-09-23 12:14] VITALS: BP 107/52
[2022-09-23] MEDS ORDERED: diphenoxylate/atropine tablet (Lomotil) PO PRN (12:30)
[2022-09-23 18:00] VITALS: BP 128/65
--- NOTE | 2022-09-23 18:24 | NUR ---
Problems reprioritized. Patient report given, questions answered & plan of care reviewed with Jenna KRISHNAMURTHY.
--- NOTE | 2022-09-23 20:00 | NUR ---
Pt refused fistula care and application of Eucerin to BLE tonight.
[2022-09-23 20:31] VITALS: BP 101/59
[2022-09-23] MEDS: furosemide 20 MG/2 ML vial IV SCH (20:34)
[2022-09-23] MEDS: potassium Cl 20 mEq SR tablet PO PRN (20:54)
[2022-09-23 22:00] VITALS: BP 104/64
[2022-09-24 06:00] VITALS: BP 110/64
[2022-09-24 06:18] LABS: BASOPHILS # (AUTO) 0.1 X10'3 (0-0.2); BASOPHILS % (AUTO) 0.6 % (0-1); EOSINOPHILS # (AUTO) 0.4 X10'3 (0-0.9); EOSINOPHILS % (AUTO) 5.2 % (0-6); HEMATOCRIT 29.9 % (42.0-52.0); HEMOGLOBIN 8.5 g/dl (14.0-17.9); LYMPHOCYTES # (AUTO) 0.6 X10'3 (1.1-4.8); LYMPHOCYTES % (AUTO) 7.3 % (21-51); MEAN CORPUSCULAR HGB CONC 28.6 g/dL (33.0-36.5); MEAN CORPUSCULAR VOLUME 66.3 FL (78-98); MONOCYTES % (AUTO) 12.4 % (2-12); NEUTROPHILS # (AUTO) 6.1 X10'3 (1.8-7.7); NEUTROPHILS % (AUTO) 74.5 % (42-75); PLATELET COUNT 456 X10'3 (140-440); RED BLOOD COUNT 4.51 X10'6 (4.70-6.10); WHITE BLOOD COUNT 8.1 X10'3 (4.5-11.0)
--- NOTE | 2022-09-24 06:30 | NUR ---
Problems reprioritized. Patient report given, questions answered & plan of care reviewed with YESSY Whitehead.
[2022-09-24 06:54] LABS: ALANINE AMINOTRANSFERASE 14 U/L (12-78); ALBUMIN 2.4 G/DL (3.4-5.0); ALBUMIN/GLOBULIN RATIO 0.5 (1.1-1.5); ALKALINE PHOSPHATASE 89 IU/L (46-116); ANION GAP 2 (8-16); ASPARTATE AMINO TRANSFERASE 14 U/L (10-37); BILIRUBIN,TOTAL 0.7 MG/DL (0.1-1.0); BLOOD UREA NITROGEN 21 MG/DL (7-18); BUN/CREATININE RATIO 12.1 (5.4-32.0); CALCIUM 8.2 MG/DL (8.5-10.1); CHLORIDE 99 MMOL/L (99-107); CREATININE 1.74 MG/DL (0.60-1.10); GLUCOSE 91 MG/DL (70-104); MAGNESIUM 1.8 MG/DL (1.5-2.4); POTASSIUM 3.5 MMOL/L (3.5-5.1); SODIUM 139 MMOL/L (135-145); TOTAL PROTEIN 6.9 G/DL (6.4-8.2); eGFR 40 ML/MIN
[2022-09-24 07:00] VITALS: BP 110/44
[2022-09-24] MEDS: mineral oil/petrolatum, white cream 113gm jar TP SCH (08:00)
[2022-09-24] MEDS ORDERED: apixaban 5mg tablet PO SCH (08:40)
[2022-09-24] MEDS: furosemide 20 MG/2 ML vial IV SCH (08:48)
[2022-09-24] MEDS: iron sucrose complex injection 200 MG in normal saline 100ml IV soln 100 ML IV SCH (08:48)
[2022-09-24 08:53] VITALS: BP_SYST 110
[2022-09-24] MEDS: metoprolol tartrate 25mg tablet PO SCH (08:53)
[2022-09-24] MEDS: diphenhydrAMINE 25mg capsule PO PRN (08:53)
[2022-09-24] MEDS: pantoprazole 40mg Tablet.DR PO SCH (09:13)
[2022-09-24] MEDS ORDERED: LOP25T PO (11:59)
[2022-09-24] MEDS ORDERED: APIX5TAB3 PO (11:59)
[2022-09-24] MEDS ORDERED: POTA-206 PO (11:59)
[2022-09-24] MEDS ORDERED: DIPH-186 PO (11:59)
[2022-09-24] MEDS ORDERED: FURO20TA4 PO (11:59)
[2022-09-24] MEDS ORDERED: VITC500T PO (12:41)
[2022-09-24] MEDS ORDERED: FERR325T28 PO (12:41)
--- NOTE | 2022-09-24 16:49 | NUR ---
PATIENT picking and choosing which meds to take for am med pass. seen by DR Beck, is for discharge . Patient has had profuse diarrhea, several times this shift. Did not want to have any antidiarrheal meds. Offered supplies for DC. .All DC instructions given to patient. Patient Dc home in private vehicle driving self in stable condition
== END 2022-09-24 15:54 | disposition home or self-care (01) | DRG 811 ==
LOC: ER 16:16 → ED HOLD 09-20 01:49 → SUR 3N 09-20 07:10
PROVIDERS: ADMIT Family Medicine; ATTEND Family Medicine
PROC: 30233N1 Transfusion of Nonautologous Red Blood Cells into Peripheral Vein, Percutaneous Approach (ICD-10-PCS; principal; 2022-09-19)
PROC: 3E02340 Introduction of Influenza Vaccine into Muscle, Percutaneous Approach (ICD-10-PCS; 2022-09-23)
DX: D50.9 Iron deficiency anemia, unspecified (principal); I50.33 Acute on chronic diastolic (congestive) heart failure; J96.01 Acute respiratory failure with hypoxia; I13.0 Hypertensive heart and chronic kidney disease with heart failure and stage 1 through stage 4 chronic kidney disease, or unspecified chronic kidney disease; E78.5 Hyperlipidemia, unspecified; N18.9 Chronic kidney disease, unspecified; Z20.822 Contact with and (suspected) exposure to COVID-19; E88.09 Other disorders of plasma-protein metabolism, not elsewhere classified; E83.51 Hypocalcemia; G89.29 Other chronic pain; I27.20 Pulmonary hypertension, unspecified; E05.90 Thyrotoxicosis, unspecified without thyrotoxic crisis or storm; I89.0 Lymphedema, not elsewhere classified; K52.9 Noninfective gastroenteritis and colitis, unspecified; K59.81 Ogilvie syndrome; M25.559 Pain in unspecified hip; Z23 Encounter for immunization; Z88.0 Allergy status to penicillin; Z88.5 Allergy status to narcotic agent; Z87.442 Personal history of urinary calculi
CPT/HCPCS: 36415; 36430; 71045; 71260; 74177; 80053; 80061; 82607; 82746; 83036; 83540; 83550; 83735; 83880; 84100; 84153; 84154; 84425; 84443; 84484; 85007; 85008; 85025; 85610; 85730; 86885; 86900; 86901; 86920; 87081; 87811; 90686; 93005; 93306; 93970; 99285; A4615; A6449; G0378; J1756; J1940; J3490; J7030; J7040; P9016; Q0163; Q9967

== ENCOUNTER 2022-10-22 17:23 | Inpatient (IN) | payer BC ==
[~2022-10-22] VITALS: Ht 175.3 cm; Wt 113.6 kg
[~2022-10-22 17:23] MED LIST changes: +APIX5TAB3 PO; -CARV6.253 PO; +DIPH-186 PO; +FERR325T28 PO; +FURO20TA4 PO; -IBUP-1985 PO; +LOP25T PO; -MULT-1085 PO; +POTA-206 PO; -PSYL575P22 PO; +VITC500T PO
[2022-10-22 18:32] LABS: BASOPHILS # (AUTO) 0.1 X10'3 (0-0.2); BASOPHILS % (AUTO) 1.2 % (0-1); EOSINOPHILS # (AUTO) 0.3 X10'3 (0-0.9); EOSINOPHILS % (AUTO) 2.8 % (0-6); HEMOGLOBIN 10.2 g/dl (14.0-17.9); LYMPHOCYTES # (AUTO) 0.9 X10'3 (1.1-4.8); LYMPHOCYTES % (AUTO) 10.4 % (21-51); MEAN CORPUSCULAR HEMOGLOBIN 22.8 PG (27.0-31.0); MEAN CORPUSCULAR HGB CONC 27.5 g/dL (33.0-36.5); MEAN CORPUSCULAR VOLUME 82.7 FL (78-98); MEAN PLATELET VOLUME 8.2 FL (7.4-10.4); MONOCYTES # (AUTO) 0.7 X10'3 (0-0.9); MONOCYTES % (AUTO) 7.8 % (2-12); NEUTROPHILS % (AUTO) 77.8 % (42-75); PLATELET COUNT 245 X10'3 (140-440); RED BLOOD COUNT 4.48 X10'6 (4.70-6.10); RED CELL DISTRIBUTION WIDTH 31.7 % (11.5-14.5)
[2022-10-22 18:53] LABS: ALANINE AMINOTRANSFERASE 12 U/L (12-78); ALBUMIN 2.3 G/DL (3.4-5.0); ALBUMIN/GLOBULIN RATIO 0.5 (1.1-1.5); ALKALINE PHOSPHATASE 111 IU/L (46-116); ANION GAP 7 (8-16); ASPARTATE AMINO TRANSFERASE 15 U/L (10-37); BILIRUBIN,TOTAL 0.3 MG/DL (0.1-1.0); BLOOD UREA NITROGEN 31 MG/DL (7-18); BUN/CREATININE RATIO 17.7 (5.4-32.0); CALCIUM 7.8 MG/DL (8.5-10.1); CHLORIDE 106 MMOL/L (99-107); CREATININE 1.75 MG/DL (0.60-1.10); GLUCOSE 171 MG/DL (70-104); MAGNESIUM 1.8 MG/DL (1.5-2.4); POTASSIUM 4.5 MMOL/L (3.5-5.1); SODIUM 140 MMOL/L (135-145); TOTAL CARBON DIOXIDE 27.5 MMOL/L (24-32); TOTAL PROTEIN 6.5 G/DL (6.4-8.2); eGFR 40 ML/MIN
[2022-10-22] MEDS ORDERED: diltiazem-D5W 125mg/125ml 125 ML IV SCH (22:30)
[2022-10-22] MEDS ORDERED: diltiazem 5mg/ml 5ml inj. IV ONE (22:30)
[2022-10-22] MEDS ORDERED: furosemide 10 MG/1 ML 10ml inj IV ONE (22:30)
[2022-10-22] MEDS ORDERED: diltiazem-D5W 125mg/125ml 100 ML IV SCH (23:13)
[2022-10-22 23:54] LABS: CLARITY,URINE CLEAR (Clear); COLOR,URINE YELLOW (Yellow); GLUCOSE, URINE NEGATIVE (Neg); KETONES,URINE NEGATIVE (Neg); LEUKOCYTE ESTERASE ,URINE NEGATIVE (Neg); NITRITES, URINE NEGATIVE (Neg); OCCULT BLOOD,URINE SMALL (Neg); PH,URINE 5.5 (4.8-8.0); PROTEIN,URINE 100 mg/dl (Neg); UROBILINOGEN,URINE 0.2 E.U/dL (0.2-1.0)
[2022-10-22 23:56] LABS: UA COLLECTION TYPE CLN CATCH MIDSTREAM
[2022-10-23] VITALS (14 sets, daily range): BP systolic 103–122; BP diastolic 69–80
[2022-10-23 00:08] LABS: BACTERIA,URINE FEW /HPF (Neg); SQUAMOUS EPITHELIAL CELL,UR FEW /LPF (FEW); WBC,URINE 0-4 /HPF (0-4)
[2022-10-23 00:09] LABS: HYALINE CASTS 0-3 /LPF (NEGATIVE); MUCUS STRANDS FEW /LPF (Neg)
[2022-10-23] MEDS ORDERED: magnesium 4gm in 100ml NS 100 ML IV PRN (00:10)
[2022-10-23] MEDS ORDERED: potassium Cl 20 mEq SR tablet PO PRN ×2 (00:10)
[2022-10-23] MEDS ORDERED: ondansetron/PF 4mg/2ml inj IV PRN (00:10)
[2022-10-23] MEDS ORDERED: magnesium Cl slow-release 64mg tablet PO PRN (00:10)
[2022-10-23] MEDS ORDERED: potassium Cl 40MEQ/1/2NS 520ml 520 ML IV PRN (00:10)
[2022-10-23] MEDS ORDERED: diltiazem-NS 100mg/100ml 100 ML IV SCH (00:13)
[2022-10-23] MEDS ORDERED: diltiazem-D5W 125mg/125ml 125 ML IV SCH (00:45)
[2022-10-23 01:27] LABS: URINE AMPHETAMINE SCREEN NEGATIVE (Neg); URINE BARBITUATE SCREEN NEGATIVE (Neg); URINE BENZODIAZEPINES SCREEN NEGATIVE (Neg); URINE CANNABINOID SCREEN NEGATIVE (Neg); URINE COCAINE SCREEN NEGATIVE (Neg); URINE METHADONE SCREEN NEGATIVE (Neg); URINE OPIATE SCREEN NEGATIVE (Neg); URINE PHENCYCLIDINE SCREEN NEGATIVE (Neg)
[2022-10-23] MEDS ORDERED: MULT-1085 PO (05:06)
[2022-10-23] MEDS ORDERED: ACET-1008 PO (05:10)
[2022-10-23] MEDS ORDERED: acetaminophen 325mg tablet PO PRN (06:15)
[2022-10-23] MEDS ORDERED: heparin, porcine 5000 units/ml vial SQ SCH (08:00)
[2022-10-23] MEDS: ferrous sulfate 325mg tablet PO SCH ×3 (09:14→23:14)
[2022-10-23] MEDS: multivitamins, therapeutics tablet PO SCH (09:14)
[2022-10-23] MEDS: potassium chloride 10mEq ER tablet PO SCH (09:14)
[2022-10-23] MEDS: furosemide 40mg/4ml inj IV SCH ×2 (09:16→23:26)
--- NOTE | 2022-10-23 11:51 | NUR ---
Paged Dr Khan: Sharon [phone] A new admit. Pt incontinent of diarrhea. Placing order for cdif culture. Thanks Maria Elena KRISHNAMURTHY [phone]
--- NOTE | 2022-10-23 15:09 | NUR ---
paged Dr. Khan re: Pt on eliquis at home. is there a reason he's getting SQ heparin instead of eliquis? pt is in afib 100s-120s on cardizem gtt.
[2022-10-23] MEDS: diltiazem-NS 100mg/100ml 100 ML IV SCH (16:31)
[2022-10-23 16:50] LABS: C DIFF SPECIMEN=DIARRHEA? ACCEPTABLE; C DIFFICILE TOXINS A&B NEGATIVE (Neg)
--- NOTE | 2022-10-23 17:00 | NUR ---
re-paged Dr. Khan re: Pt on eliquis at home. is there a reason he's getting SQ heparin instead of eliquis? he would prefer to take eliquis. pt is in afib 100s-120s on cardizem gtt.
--- NOTE | 2022-10-23 17:21 | NUR ---
Spoke with Dr. Khan re: pt's eliquis. Dr. Khan says he will restart.
--- NOTE | 2022-10-23 18:00 | NUR ---
Patient in room PCU 3010. I have received report from Kobe KRISHNAMURTHY and had the opportunity to ask questions and assume patient care.
[2022-10-23] MEDS ORDERED: temazepam 15mg capsule PO PRN (21:00)
[2022-10-23] MEDS: apixaban 5mg tablet PO SCH (23:14)
--- NOTE | 2022-10-24 06:28 | NUR ---
Problems reprioritized. Patient report given, questions answered & plan of care reviewed with Johny KRISHNAMURTHY.
[2022-10-24 07:00] VITALS: BP 106/70
[2022-10-24 07:21] LABS: BASOPHILS # (AUTO) 0.1 X10'3 (0-0.2); BASOPHILS % (AUTO) 1.2 % (0-1); EOSINOPHILS # (AUTO) 0.3 X10'3 (0-0.9); EOSINOPHILS % (AUTO) 4.1 % (0-6); HEMATOCRIT 35.6 % (42.0-52.0); HEMOGLOBIN 10.1 g/dl (14.0-17.9); LYMPHOCYTES % (AUTO) 14.3 % (21-51); MEAN CORPUSCULAR HGB CONC 28.2 g/dL (33.0-36.5); MEAN CORPUSCULAR VOLUME 81.4 FL (78-98); MEAN PLATELET VOLUME 8.3 FL (7.4-10.4); MONOCYTES # (AUTO) 0.7 X10'3 (0-0.9); MONOCYTES % (AUTO) 10.3 % (2-12); NEUTROPHILS # (AUTO) 4.9 X10'3 (1.8-7.7); NEUTROPHILS % (AUTO) 70.1 % (42-75); PLATELET COUNT 262 X10'3 (140-440); RED BLOOD COUNT 4.37 X10'6 (4.70-6.10); RED CELL DISTRIBUTION WIDTH 31.7 % (11.5-14.5)
[2022-10-24 07:50] LABS: ALANINE AMINOTRANSFERASE 14 U/L (12-78); ALBUMIN 2.3 G/DL (3.4-5.0); ALBUMIN/GLOBULIN RATIO 0.5 (1.1-1.5); ALKALINE PHOSPHATASE 96 IU/L (46-116); ANION GAP 7 (8-16); ASPARTATE AMINO TRANSFERASE 20 U/L (10-37); BILIRUBIN,TOTAL 0.4 MG/DL (0.1-1.0); BLOOD UREA NITROGEN 29 MG/DL (7-18); BUN/CREATININE RATIO 17.9 (5.4-32.0); CHLORIDE 104 MMOL/L (99-107); CREATININE 1.62 MG/DL (0.60-1.10); GLUCOSE 99 MG/DL (70-104); POTASSIUM 3.9 MMOL/L (3.5-5.1); SODIUM 140 MMOL/L (135-145); TOTAL CARBON DIOXIDE 29.4 MMOL/L (24-32); TOTAL PROTEIN 6.5 G/DL (6.4-8.2); eGFR 44 ML/MIN
[2022-10-24 08:36] LABS: ANISOCYTOSIS 3+; MICROCYTOSIS 1+; PLATELET ESTIMATE NORMAL; TEAR DROP CELLS 1+
[2022-10-24 08:37] LABS: ELLIPTOCYTES FEW; HYPOCHROMASIA 1+
[2022-10-24 08:38] LABS: ACANTHOCYTES FEW; LARGE PLATELETS FEW
[2022-10-24] MEDS: ferrous sulfate 325mg tablet PO SCH ×3 (08:45→19:39)
[2022-10-24] MEDS: potassium chloride 10mEq ER tablet PO SCH (08:45)
[2022-10-24] MEDS: multivitamins, therapeutics tablet PO SCH (08:45)
[2022-10-24] MEDS: apixaban 5mg tablet PO SCH ×2 (08:45→19:38)
[2022-10-24] MEDS: furosemide 40mg/4ml inj IV SCH ×2 (08:46→19:38)
[2022-10-24 11:00] VITALS: BP 112/71
[2022-10-24] MEDS: diltiazem-NS 100mg/100ml 100 ML IV SCH (13:06)
[2022-10-24 15:00] VITALS: BP 112/71
--- NOTE | 2022-10-24 15:36 | NUR ---
PRESSURE ULCER EDUCATION: DEFINITION: A pressure ulcer is an area of skin that breaks down when you stay in one position too long. The constant pressure against the skin reduces the blood flow to that area and the affected tissue dies. CAUSES: "Being bedridden or in a wheelchair "Fragile skin "Having a chronic condition, such as diabetes or vascular disease "Inability to move certain parts of your body without assistance "Older age "Incontinence of urine or stool SYMPTOMS: "A reddened area that DOES NOT turn white when pressed on - this can be the beginning of a pressure ulcer "A blister, deep sore or a crater - these can be advanced pressure ulcers FIRST AID: "Relieve the pressure on this area "Keep the area clean and dry "Call your primary doctor if you see any of the above symptoms "DO NOT massage the area "DO NOT use a donut shaped or ring shaped pillow- these actually interfere with the blood flow and cause complications PREVENTION: "Check for pressure ulcers everyday "Change position at least every two hours to relieve pressure "Use items that help relieve pressure- pillows, sheepskin, foam padding, and powders. "Keep skin clean and dry "Eat healthy well balanced meals "Exercise daily IF YOU SEE ANY OF THESE SYMPTOMS WHILE IN THE HOSPITAL - TELL YOUR NURSE IMMEDIATELY. IF YOU SEE ANY OF THESE SYMPTOMS WHILE AT HOME OR HAVE ANY QUESTIONS OR CONCERNS ABOUT PRESSURE ULCERS - CALL YOUR PRIMARY DOCTOR IMMEDIATELY. Addendum: 10/24/22 at 1537 by Darleen Manuel LVN Amended: Links added.
[2022-10-24] MEDS ORDERED: diltiazem 30mg tablet PO ONE (15:55)
[2022-10-24] MEDS: diltiazem 30mg tablet PO SCH (20:00)
[2022-10-24] MEDS: nystatin 15 GM powder TP SCH (21:00)
[2022-10-24 22:00] VITALS: BP 106/72
[2022-10-25 02:00] VITALS: BP 114/67
[2022-10-25] MEDS: diltiazem 30mg tablet PO SCH ×3 (04:18→14:00)
[2022-10-25 07:00] VITALS: BP 109/69
[2022-10-25] MEDS: potassium chloride 10mEq ER tablet PO SCH (08:00)
[2022-10-25] MEDS: nystatin 15 GM powder TP SCH ×2 (08:00→13:00)
[2022-10-25 08:06] LABS: HEMATOCRIT 34.6 % (42.0-52.0); HEMOGLOBIN 10.3 g/dl (14.0-17.9); MEAN CORPUSCULAR HEMOGLOBIN 23.7 PG (27.0-31.0); MEAN CORPUSCULAR HGB CONC 29.8 g/dL (33.0-36.5); MEAN CORPUSCULAR VOLUME 79.4 FL (78-98); MEAN PLATELET VOLUME 8.1 FL (7.4-10.4); PLATELET COUNT 258 X10'3 (140-440); RED BLOOD COUNT 4.35 X10'6 (4.70-6.10); WHITE BLOOD COUNT 7.1 X10'3 (4.5-11.0)
[2022-10-25 08:15] LABS: ALANINE AMINOTRANSFERASE 9 U/L (12-78); ALBUMIN 2.3 G/DL (3.4-5.0); ALBUMIN/GLOBULIN RATIO 0.6 (1.1-1.5); ALKALINE PHOSPHATASE 94 IU/L (46-116); ANION GAP 4 (8-16); ASPARTATE AMINO TRANSFERASE 18 U/L (10-37); BILIRUBIN,TOTAL 0.4 MG/DL (0.1-1.0); BLOOD UREA NITROGEN 26 MG/DL (7-18); BUN/CREATININE RATIO 16.6 (5.4-32.0); CALCIUM 8.2 MG/DL (8.5-10.1); CHLORIDE 104 MMOL/L (99-107); CREATININE 1.57 MG/DL (0.60-1.10); GLUCOSE 99 MG/DL (70-104); POTASSIUM 3.6 MMOL/L (3.5-5.1); SODIUM 140 MMOL/L (135-145); TOTAL CARBON DIOXIDE 31.8 MMOL/L (24-32); TOTAL PROTEIN 6.4 G/DL (6.4-8.2); eGFR 45 ML/MIN
[2022-10-25 08:35] LABS: BASOPHILS # (AUTO) 0.1 X10'3 (0-0.2); BASOPHILS % (AUTO) 1.2 % (0-1); EOSINOPHILS # (AUTO) 0.3 X10'3 (0-0.9); EOSINOPHILS % (AUTO) 3.6 % (0-6); LYMPHOCYTES # (AUTO) 0.9 X10'3 (1.1-4.8); LYMPHOCYTES % (AUTO) 13.1 % (21-51); MONOCYTES # (AUTO) 0.8 X10'3 (0-0.9); MONOCYTES % (AUTO) 10.8 % (2-12); NEUTROPHILS # (AUTO) 5.1 X10'3 (1.8-7.7); NEUTROPHILS % (AUTO) 71.3 % (42-75)
[2022-10-25 08:38] LABS: ANISOCYTOSIS 3+; ELLIPTOCYTES 1+; LARGE PLATELETS FEW; MICROCYTOSIS 1+; PLATELET ESTIMATE NORMAL; TEAR DROP CELLS FEW
[2022-10-25 08:40] LABS: SCHISTOCYTES FEW
[2022-10-25] MEDS: furosemide 40mg/4ml inj IV SCH (09:13)
[2022-10-25] MEDS: apixaban 5mg tablet PO SCH (09:13)
[2022-10-25] MEDS: ferrous sulfate 325mg tablet PO SCH ×2 (09:13→13:00)
[2022-10-25] MEDS: multivitamins, therapeutics tablet PO SCH (09:13)
[2022-10-25 11:00] VITALS: BP 116/70
[2022-10-25] MEDS ORDERED: DILT240C90 PO (13:08)
[2022-10-25] MEDS ORDERED: diltiazem CD 120mg capsule (once-daily) PO ONE (13:10)
== END 2022-10-25 16:07 | disposition home or self-care (01) | DRG 291 ==
LOC: ER 17:25 → ED HOLD 10-23 00:12 → PCU 3S 10-23 10:53
PROVIDERS: ADMIT Internal Medicine; ATTEND Family Medicine
DX: I13.0 Hypertensive heart and chronic kidney disease with heart failure and stage 1 through stage 4 chronic kidney disease, or unspecified chronic kidney disease (principal); I50.33 Acute on chronic diastolic (congestive) heart failure; Z20.822 Contact with and (suspected) exposure to COVID-19; D63.8 Anemia in other chronic diseases classified elsewhere; I48.91 Unspecified atrial fibrillation; S31.829A Unspecified open wound of left buttock, initial encounter; S31.819A Unspecified open wound of right buttock, initial encounter; X58.XXXA Exposure to other specified factors, initial encounter; I89.0 Lymphedema, not elsewhere classified; K52.9 Noninfective gastroenteritis and colitis, unspecified; N18.30 Chronic kidney disease, stage 3 unspecified; R09.02 Hypoxemia; Z87.442 Personal history of urinary calculi; Z88.5 Allergy status to narcotic agent; Z91.199 Patient's noncompliance with other medical treatment and regimen due to unspecified reason; Z88.0 Allergy status to penicillin; Z88.8 Allergy status to other drugs, medicaments and biological substances; Y93.89 Activity, other specified; Y92.89 Other specified places as the place of occurrence of the external cause; Y99.8 Other external cause status
CPT/HCPCS: 36415; 71045; 80053; 80305; 81001; 83605; 83735; 83880; 84145; 84484; 85008; 85025; 87040; 87081; 87324; 87449; 87502; 87503; 87635; 99285; A4615; A6250; A6253; A6449; C9803; G0378; J1940; J3490

== ENCOUNTER 2022-11-05 08:36 | Inpatient (IN) | payer BC ==
[~2022-11-05] VITALS: Ht 175.3 cm; Wt 103.8 kg
[~2022-11-05 08:36] MED LIST changes: +ACET-1008 PO; +DILT240C90 PO; -DIPH-186 PO; -FERR325T28 PO; -LOP25T PO; +MULT-1085 PO; -VITC500T PO
[2022-11-05] MEDS ORDERED: furosemide 10 MG/1 ML 10ml inj IV ONE (09:00)
[2022-11-05 09:19] LABS: ALANINE AMINOTRANSFERASE 15 U/L (12-78); ALBUMIN 2.4 G/DL (3.4-5.0); ALBUMIN/GLOBULIN RATIO 0.5 (1.1-1.5); ALKALINE PHOSPHATASE 107 IU/L (46-116); ANION GAP 6 (8-16); ASPARTATE AMINO TRANSFERASE 14 U/L (10-37); BILIRUBIN,TOTAL 0.2 MG/DL (0.1-1.0); BLOOD UREA NITROGEN 38 MG/DL (7-18); CALCIUM 8.1 MG/DL (8.5-10.1); CHLORIDE 104 MMOL/L (99-107); CREATININE 1.81 MG/DL (0.60-1.10); GLUCOSE 99 MG/DL (70-104); POTASSIUM 4.8 MMOL/L (3.5-5.1); SODIUM 139 MMOL/L (135-145); TOTAL CARBON DIOXIDE 28.8 MMOL/L (24-32); eGFR 38 ML/MIN
[2022-11-05 09:34] LABS: BASOPHILS # (AUTO) 0.1 X10'3 (0-0.2); BASOPHILS % (AUTO) 1.2 % (0-1); EOSINOPHILS # (AUTO) 0.1 X10'3 (0-0.9); EOSINOPHILS % (AUTO) 1.5 % (0-6); HEMATOCRIT 41.4 % (42.0-52.0); HEMOGLOBIN 11.7 g/dl (14.0-17.9); LYMPHOCYTES # (AUTO) 1.2 X10'3 (1.1-4.8); LYMPHOCYTES % (AUTO) 13.6 % (21-51); MEAN CORPUSCULAR HEMOGLOBIN 23.8 PG (27.0-31.0); MEAN CORPUSCULAR HGB CONC 28.2 g/dL (33.0-36.5); MEAN CORPUSCULAR VOLUME 84.4 FL (78-98); MEAN PLATELET VOLUME 7.3 FL (7.4-10.4); MONOCYTES # (AUTO) 0.8 X10'3 (0-0.9); NEUTROPHILS # (AUTO) 6.4 X10'3 (1.8-7.7); NEUTROPHILS % (AUTO) 74.7 % (42-75); PLATELET COUNT 246 X10'3 (140-440); RED BLOOD COUNT 4.91 X10'6 (4.70-6.10); RED CELL DISTRIBUTION WIDTH 27.6 % (11.5-14.5); WHITE BLOOD COUNT 8.5 X10'3 (4.5-11.0)
[2022-11-05 10:28] LABS: ANISOCYTOSIS 3+; ELLIPTOCYTES FEW; PLATELET ESTIMATE NORMAL; TEAR DROP CELLS FEW
[2022-11-05] MEDS ORDERED: diltiazem 5mg/ml 5ml inj. IV ONE (10:40)
[2022-11-05] MEDS ORDERED: nitroGLYCERIN 1gm ointment UD TP ONE (10:40)
[2022-11-05] MEDS ORDERED: magnesium hydroxide 30ml (MOM) UD suspension PO PRN (11:20)
[2022-11-05] MEDS ORDERED: acetaminophen 325mg tablet PO PRN (11:20)
[2022-11-05] MEDS ORDERED: ondansetron/PF 4mg/2ml inj IV PRN (11:20)
[2022-11-05] MEDS ORDERED: mag hydrox/Alum hydrox/simeth 30ml oral suspension PO PRN (11:20)
[2022-11-05] MEDS ORDERED: morphine 2 MG/ML inj. syringe IV PRN ×2 (11:20)
[2022-11-05] MEDS ORDERED: FERR325T35 PO (11:31)
[2022-11-05] MEDS ORDERED: DOXY25TA19 PO (11:31)
[2022-11-05] MEDS ORDERED: DIPH-629 PO (11:31)
[2022-11-05] MEDS ORDERED: METO50TA17 PO (11:31)
[2022-11-05] MEDS: levoFLOXACIN-Levaquin 250mg/D5 50 ML IV SCH (11:53)
[2022-11-05] MEDS ORDERED: DILT-103 PO (14:22)
[2022-11-05] MEDS ORDERED: APIX5TAB3 PO (14:22)
[2022-11-05] MEDS ORDERED: FURO20TA4 PO (14:23)
[2022-11-05] MEDS ORDERED: POTA-206 PO (14:23)
--- NOTE | 2022-11-05 15:12 | NUR ---
ED BED 9--During initial assessment pt disclosed hx of colostomy with takedown RT anal fistula. Pt just disclosed that anal fistula is not resolved and is in fact a current issue. I did not see this reflected in his history and wanted to make sure you were aware of this. [phone]
[2022-11-05] MEDS: furosemide 40mg/4ml inj IV SCH (16:34)
[2022-11-05 17:04] LABS: CLARITY,URINE CLEAR (Clear); COLOR,URINE YELLOW (Yellow); GLUCOSE, URINE NEGATIVE (Neg); KETONES,URINE NEGATIVE (Neg); LEUKOCYTE ESTERASE ,URINE NEGATIVE (Neg); NITRITES, URINE NEGATIVE (Neg); OCCULT BLOOD,URINE TRACE-INTACT (Neg); PROTEIN,URINE NEGATIVE (Neg); UROBILINOGEN,URINE 0.2 E.U/dL (0.2-1.0)
[2022-11-05 17:18] LABS: UA COLLECTION TYPE CLN CATCH MIDSTREAM
[2022-11-05 17:19] LABS: BACTERIA,URINE FEW /HPF (Neg); RBC,URINE 0-2 /HPF (0-2); SQUAMOUS EPITHELIAL CELL,UR FEW /LPF (FEW); WBC,URINE 0-4 /HPF (0-4)
[2022-11-05 17:20] LABS: MUCUS STRANDS NONE SEEN /LPF (Neg)
[2022-11-05 17:23] LABS: URINE AMPHETAMINE SCREEN NEGATIVE (Neg); URINE BARBITUATE SCREEN NEGATIVE (Neg); URINE BENZODIAZEPINES SCREEN NEGATIVE (Neg); URINE CANNABINOID SCREEN NEGATIVE (Neg); URINE COCAINE SCREEN NEGATIVE (Neg); URINE METHADONE SCREEN NEGATIVE (Neg); URINE OPIATE SCREEN NEGATIVE (Neg); URINE PHENCYCLIDINE SCREEN NEGATIVE (Neg)
[2022-11-05] MEDS: docusate sod 100mg capsule PO SCH (20:00)
--- NOTE | 2022-11-05 21:06 | NUR ---
PT IS WEARING A BRIEF AND CURRENTLY REFUSING TO BE CHANGED OR HAVE HIS COLOSTOMY/FISTULA LOOKED AT.
--- NOTE | 2022-11-05 21:12 | NUR ---
This nurse agrees with Delfina ICICLE MACHINE OPERATOR assessment.
--- NOTE | 2022-11-06 06:35 | NUR ---
report from chasity newell for continuation of care. pt is awake ao4 claims slight headache no dizziness sitting up for comfort on 3 L NC resp even unlabored deep.
[2022-11-06] MEDS: docusate sod 100mg capsule PO SCH ×2 (08:00→20:00)
[2022-11-06] MEDS ORDERED: diphenoxylate/atropine tablet (Lomotil) PO PRN (08:05)
[2022-11-06] MEDS: furosemide 40mg/4ml inj IV SCH ×4 (08:10→21:00)
[2022-11-06] MEDS ORDERED: metoprolol tartrate 50mg tablet PO ONE (08:10)
[2022-11-06] MEDS: levoFLOXACIN-Levaquin 250mg/D5 50 ML IV SCH (08:10)
[2022-11-06 08:36] LABS: BASOPHILS # (AUTO) 0.1 X10'3 (0-0.2); BASOPHILS % (AUTO) 0.9 % (0-1); EOSINOPHILS # (AUTO) 0.1 X10'3 (0-0.9); EOSINOPHILS % (AUTO) 0.8 % (0-6); HEMATOCRIT 40.1 % (42.0-52.0); HEMOGLOBIN 11.5 g/dl (14.0-17.9); LYMPHOCYTES # (AUTO) 0.9 X10'3 (1.1-4.8); LYMPHOCYTES % (AUTO) 8.2 % (21-51); MEAN CORPUSCULAR HEMOGLOBIN 24.3 PG (27.0-31.0); MEAN CORPUSCULAR HGB CONC 28.7 g/dL (33.0-36.5); MEAN CORPUSCULAR VOLUME 84.8 FL (78-98); MEAN PLATELET VOLUME 8.2 FL (7.4-10.4); MONOCYTES # (AUTO) 0.6 X10'3 (0-0.9); MONOCYTES % (AUTO) 5.4 % (2-12); NEUTROPHILS # (AUTO) 8.9 X10'3 (1.8-7.7); NEUTROPHILS % (AUTO) 84.7 % (42-75); PLATELET COUNT 263 X10'3 (140-440); RED BLOOD COUNT 4.73 X10'6 (4.70-6.10); RED CELL DISTRIBUTION WIDTH 27.8 % (11.5-14.5); WHITE BLOOD COUNT 10.5 X10'3 (4.5-11.0)
--- NOTE | 2022-11-06 08:55 | NUR ---
PT GIVEN TRAY AND EATING WITH NO ISSUES
--- NOTE | 2022-11-06 09:13 | NUR ---
received report from ER nurse for patient. Had opportunity to ask questions. ER nurse stated he would give AM metoprolol prior to transfer
[2022-11-06 09:50] VITALS: BP 115/66
[2022-11-06 10:26] LABS: ALBUMIN 2.4 G/DL (3.4-5.0); ANION GAP 7 (8-16); BLOOD UREA NITROGEN 35 MG/DL (7-18); BUN/CREATININE RATIO 19.4 (5.4-32.0); CHLORIDE 103 MMOL/L (99-107); GLUCOSE 114 MG/DL (70-104); POTASSIUM 4.4 MMOL/L (3.5-5.1); SODIUM 141 MMOL/L (135-145); TOTAL CARBON DIOXIDE 31.1 MMOL/L (24-32); eGFR 39 ML/MIN
[2022-11-06] MEDS: ferrous sulfate 325mg tablet PO SCH ×2 (12:33→21:46)
[2022-11-06] MEDS ORDERED: LIDOcaine 2% 10ml TOPICAL JELLY (Urojet) TP ONE (13:25)
[2022-11-06 18:00] VITALS: BP 114/70
--- NOTE | 2022-11-06 18:15 | NUR ---
Patient in room PCU 3014. I have received report from ESTRELLITA KRISHNAMURTHY and had the opportunity to ask questions and assume patient care.
--- NOTE | 2022-11-06 18:26 | NUR ---
gave report to Cee KRISHNAMURTHY
[2022-11-06] MEDS: metoprolol tartrate 50mg tablet PO SCH (20:00)
[2022-11-06] MEDS: apixaban 5mg tablet PO SCH (21:55)
[2022-11-06 22:00] VITALS: BP 116/67
[2022-11-07 02:00] VITALS: BP 120/76
[2022-11-07 06:30] VITALS: BP 107/65
--- NOTE | 2022-11-07 06:52 | NUR ---
Patient in room U 3017S. I have received report from Cee KRISHNAMURTHY and had the opportunity to ask questions and assume patient care. Pt is sitting up on side of bed watching tv dosing off. Pt easy to arouse and declines tray c/o pain at this time. Pt states he is comfortable sitting on side of bed. Pt on 2L NC, No s/s of distress. BLL, call light within reach, frquently used items in reach, frequent rounding, furniture repair technician socks on, will continue to monitor.
[2022-11-07 07:00] LABS: BASOPHILS # (AUTO) 0.1 X10'3 (0-0.2); EOSINOPHILS # (AUTO) 0.1 X10'3 (0-0.9); EOSINOPHILS % (AUTO) 0.6 % (0-6); HEMATOCRIT 39.6 % (42.0-52.0); HEMOGLOBIN 11.6 g/dl (14.0-17.9); MEAN CORPUSCULAR HEMOGLOBIN 24.3 PG (27.0-31.0); MEAN CORPUSCULAR HGB CONC 29.4 g/dL (33.0-36.5); MEAN CORPUSCULAR VOLUME 82.8 FL (78-98); MEAN PLATELET VOLUME 8.1 FL (7.4-10.4); MONOCYTES # (AUTO) 0.6 X10'3 (0-0.9); MONOCYTES % (AUTO) 6.8 % (2-12); NEUTROPHILS # (AUTO) 6.7 X10'3 (1.8-7.7); NEUTROPHILS % (AUTO) 79.6 % (42-75); PLATELET COUNT 264 X10'3 (140-440); RED BLOOD COUNT 4.78 X10'6 (4.70-6.10); RED CELL DISTRIBUTION WIDTH 27.6 % (11.5-14.5); WHITE BLOOD COUNT 8.4 X10'3 (4.5-11.0)
[2022-11-07] MEDS: ferrous sulfate 325mg tablet PO SCH ×3 (07:17→23:07)
[2022-11-07] MEDS: levoFLOXACIN-Levaquin 250mg/D5 50 ML IV SCH (07:17)
[2022-11-07] MEDS: docusate sod 100mg capsule PO SCH ×2 (07:17→20:00)
[2022-11-07] MEDS: furosemide 40mg/4ml inj IV SCH ×2 (07:17→23:57)
[2022-11-07] MEDS: apixaban 5mg tablet PO SCH ×2 (07:17→23:07)
[2022-11-07] MEDS: diltiazem CD 120mg capsule (once-daily) PO SCH (07:18)
[2022-11-07] MEDS: metoprolol tartrate 50mg tablet PO SCH ×2 (07:19→23:09)
[2022-11-07 07:24] LABS: ALBUMIN 2.4 G/DL (3.4-5.0); ANION GAP 3 (8-16); BLOOD UREA NITROGEN 33 MG/DL (7-18); BUN/CREATININE RATIO 18.9 (5.4-32.0); CALCIUM 7.5 MG/DL (8.5-10.1); CHLORIDE 101 MMOL/L (99-107); CREATININE 1.75 MG/DL (0.60-1.10); GLUCOSE 96 MG/DL (70-104); POTASSIUM 3.9 MMOL/L (3.5-5.1); SODIUM 141 MMOL/L (135-145); TOTAL CARBON DIOXIDE 36.6 MMOL/L (24-32); eGFR 40 ML/MIN
[2022-11-07 08:43] LABS: NUCLEATED RED BLOOD CELLS 1 /100WBC (0-0); PLATELET ESTIMATE NORMAL; TOTAL CELLS COUNTED 100
[2022-11-07 08:44] LABS: ANISOCYTOSIS 3+; ELLIPTOCYTES FEW
[2022-11-07 08:45] LABS: SCHISTOCYTES FEW
[2022-11-07 11:00] VITALS: BP 99/53
--- NOTE | 2022-11-07 14:01 | NUR ---
PAGER ID: [phone] MESSAGE: Johnnie Herrera 3001: MRI unable to to rectal contrast. CT scan can do rectal contrast. Can CT be ordered instead? -Emily Dye EXT [phone]
--- NOTE | 2022-11-07 14:46 | NUR ---
PRESSURE ULCER EDUCATION: DEFINITION: A pressure ulcer is an area of skin that breaks down when you stay in one position too long. The constant pressure against the skin reduces the blood flow to that area and the affected tissue dies. CAUSES: "Being bedridden or in a wheelchair "Fragile skin "Having a chronic condition, such as diabetes or vascular disease "Inability to move certain parts of your body without assistance "Older age "Incontinence of urine or stool SYMPTOMS: "A reddened area that DOES NOT turn white when pressed on - this can be the beginning of a pressure ulcer "A blister, deep sore or a crater - these can be advanced pressure ulcers FIRST AID: "Relieve the pressure on this area "Keep the area clean and dry "Call your primary doctor if you see any of the above symptoms "DO NOT massage the area "DO NOT use a donut shaped or ring shaped pillow- these actually interfere with the blood flow and cause complications PREVENTION: "Check for pressure ulcers everyday "Change position at least every two hours to relieve pressure "Use items that help relieve pressure- pillows, sheepskin, foam padding, and powders. "Keep skin clean and dry "Eat healthy well balanced meals "Exercise daily IF YOU SEE ANY OF THESE SYMPTOMS WHILE IN THE HOSPITAL - TELL YOUR NURSE IMMEDIATELY. IF YOU SEE ANY OF THESE SYMPTOMS WHILE AT HOME OR HAVE ANY QUESTIONS OR CONCERNS ABOUT PRESSURE ULCERS - CALL YOUR PRIMARY DOCTOR IMMEDIATELY. Addendum: 11/07/22 at 1446 by Darleen Manuel LVN Amended: Links added.
--- NOTE | 2022-11-07 17:36 | NUR ---
patient's keys and wallet delivered to patient.
[2022-11-07 18:00] VITALS: BP 121/73
--- NOTE | 2022-11-07 18:09 | NUR ---
Patient in room PCU 3009. I have received report from Emily KRISHNAMURTHY and had the opportunity to ask questions and assume patient care.
--- NOTE | 2022-11-07 18:14 | NUR ---
Problems reprioritized. Patient report given, questions answered & plan of care reviewed with Cee KRISHNAMURTHY.
--- NOTE | 2022-11-07 20:00 | NUR ---
many medications not scanned/accounted for from day shift-let property claims manager know, checked omnicell and inquired with patient before reassuming medication passes. Stephan KRISHNAMURTHY Addendum: 11/08/22 at 0215 by Cee Chapman RN Disregard-wrong patient
[2022-11-07 22:00] VITALS: BP 107/66
[2022-11-07] MEDS: acetaminophen 325mg tablet PO PRN (23:09)
[2022-11-08 02:00] VITALS: BP 104/52
--- NOTE | 2022-11-08 06:29 | NUR ---
Problems reprioritized. Patient report given, questions answered & plan of care reviewed with Savannah KRISHNAMURTHY.
[2022-11-08 07:23] LABS: BASOPHILS # (AUTO) 0.1 X10'3 (0-0.2); BASOPHILS % (AUTO) 1.1 % (0-1); EOSINOPHILS # (AUTO) 0.1 X10'3 (0-0.9); EOSINOPHILS % (AUTO) 1.4 % (0-6); HEMATOCRIT 38.8 % (42.0-52.0); HEMOGLOBIN 11.4 g/dl (14.0-17.9); LYMPHOCYTES # (AUTO) 0.9 X10'3 (1.1-4.8); LYMPHOCYTES % (AUTO) 13.6 % (21-51); MEAN CORPUSCULAR HEMOGLOBIN 24.3 PG (27.0-31.0); MEAN CORPUSCULAR HGB CONC 29.5 g/dL (33.0-36.5); MEAN CORPUSCULAR VOLUME 82.5 FL (78-98); MONOCYTES # (AUTO) 0.6 X10'3 (0-0.9); MONOCYTES % (AUTO) 9.1 % (2-12); NEUTROPHILS # (AUTO) 5.1 X10'3 (1.8-7.7); NEUTROPHILS % (AUTO) 74.8 % (42-75); PLATELET COUNT 264 X10'3 (140-440); RED CELL DISTRIBUTION WIDTH 27.8 % (11.5-14.5); WHITE BLOOD COUNT 6.9 X10'3 (4.5-11.0)
[2022-11-08] MEDS: docusate sod 100mg capsule PO SCH ×2 (08:00→19:14)
[2022-11-08] MEDS: ferrous sulfate 325mg tablet PO SCH ×3 (08:00→19:13)
[2022-11-08 08:21] LABS: CHLORIDE 100 MMOL/L (99-107); POTASSIUM 3.1 MMOL/L (3.5-5.1); SODIUM 141 MMOL/L (135-145)
[2022-11-08 08:22] LABS: ALBUMIN 2.4 G/DL (3.4-5.0); ANION GAP 6 (8-16); BLOOD UREA NITROGEN 29 MG/DL (7-18); BUN/CREATININE RATIO 18.5 (5.4-32.0); CALCIUM 7.6 MG/DL (8.5-10.1); CREATININE 1.57 MG/DL (0.60-1.10); GLUCOSE 95 MG/DL (70-104); TOTAL CARBON DIOXIDE 34.8 MMOL/L (24-32); eGFR 45 ML/MIN
[2022-11-08] MEDS: diltiazem CD 120mg capsule (once-daily) PO SCH (09:20)
[2022-11-08] MEDS: apixaban 5mg tablet PO SCH ×2 (10:03→19:13)
[2022-11-08] MEDS: furosemide 40mg/4ml inj IV SCH ×2 (10:03→19:04)
[2022-11-08] MEDS: levoFLOXACIN-Levaquin 250mg/D5 50 ML IV SCH (10:03)
--- NOTE | 2022-11-08 10:35 | NUR ---
Paged Dr. pan regarding pts potassium level of 3.1 and needing replacement orders. PAGER ID: [phone] MESSAGE: [phone], Sharon Blair. Pts K+ is 3.1, would you like me to order some replacement? Savannah [facility] 4720
[2022-11-08] MEDS ORDERED: potassium Cl 20 mEq SR tablet PO PRN (10:40)
[2022-11-08] MEDS ORDERED: magnesium Cl slow-release 64mg tablet PO PRN (10:40)
[2022-11-08] MEDS ORDERED: potassium Cl 40MEQ/1/2NS 520ml 520 ML IV PRN (10:40)
[2022-11-08] MEDS ORDERED: magnesium 4gm in 100ml NS 100 ML IV PRN (10:40)
[2022-11-08] MEDS: potassium Cl 20 mEq SR tablet PO PRN ×2 (11:07→19:36)
[2022-11-08] MEDS ORDERED: metoprolol tartrate 25mg tablet PO ONE (11:20)
[2022-11-08] MEDS ORDERED: diazepam inj 5 MG/ML inj. IV ONE (11:35)
--- NOTE | 2022-11-08 14:11 | NUR ---
PAGER ID: [phone] MESSAGE: [phone], Sharon Blair. Pt is screaming down the halls and yelling at me for food. He is very upset and says if i do not bring him food he is going to order. Savannah [facility] [id number]
--- NOTE | 2022-11-08 16:00 | NUR ---
Paged Dr. Pederson letting him know I think the patient needs to be tested for c-diff. His stool is liquid and smells like c diff. PAGER ID: [phone] MESSAGE: [phone], Sharon Blair. We got the CT done. I think he might need a c-diff sample. His stool is liquid and smells like C-diff. Savannah [facility] 1454.
[2022-11-08 17:10] VITALS: BP 105/63
[2022-11-08 18:00] VITALS: BP 109/39
--- NOTE | 2022-11-08 18:43 | NUR ---
Problems reprioritized. Patient report given, questions answered & plan of care reviewed with Domenico BARNARD, patient stable at transfer of care.
[2022-11-08] MEDS: metoprolol tartrate 25mg tablet PO SCH (19:17)
[2022-11-08] MEDS: K and/or MAG REPLACEMENT MC SCH (20:00)
[2022-11-08] MEDS ORDERED: metoprolol tartrate 25mg tablet PO SCH (20:00)
[2022-11-09 02:02] VITALS: BP 109/63
[2022-11-09 06:24] LABS: BASOPHILS # (AUTO) 0.1 X10'3 (0-0.2); EOSINOPHILS # (AUTO) 0.1 X10'3 (0-0.9); EOSINOPHILS % (AUTO) 1.4 % (0-6); HEMATOCRIT 40.1 % (42.0-52.0); HEMOGLOBIN 11.9 g/dl (14.0-17.9); LYMPHOCYTES # (AUTO) 0.9 X10'3 (1.1-4.8); LYMPHOCYTES % (AUTO) 14.1 % (21-51); MEAN CORPUSCULAR HEMOGLOBIN 24.4 PG (27.0-31.0); MEAN CORPUSCULAR HGB CONC 29.6 g/dL (33.0-36.5); MEAN CORPUSCULAR VOLUME 82.3 FL (78-98); MEAN PLATELET VOLUME 7.2 FL (7.4-10.4); MONOCYTES # (AUTO) 0.7 X10'3 (0-0.9); NEUTROPHILS # (AUTO) 4.9 X10'3 (1.8-7.7); NEUTROPHILS % (AUTO) 73.5 % (42-75); PLATELET COUNT 252 X10'3 (140-440); RED BLOOD COUNT 4.88 X10'6 (4.70-6.10); RED CELL DISTRIBUTION WIDTH 27.3 % (11.5-14.5); WHITE BLOOD COUNT 6.7 X10'3 (4.5-11.0)
[2022-11-09 06:55] LABS: ALBUMIN 2.5 G/DL (3.4-5.0); ANION GAP 3 (8-16); BLOOD UREA NITROGEN 28 MG/DL (7-18); BUN/CREATININE RATIO 16.2 (5.4-32.0); CALCIUM 7.6 MG/DL (8.5-10.1); CHLORIDE 100 MMOL/L (99-107); CREATININE 1.73 MG/DL (0.60-1.10); GLUCOSE 89 MG/DL (70-104); POTASSIUM 3.3 MMOL/L (3.5-5.1); SODIUM 141 MMOL/L (135-145); TOTAL CARBON DIOXIDE 38.5 MMOL/L (24-32); eGFR 40 ML/MIN
[2022-11-09 07:00] VITALS: BP 100/50
[2022-11-09 07:14] LABS: PLATELET ESTIMATE NORMAL
[2022-11-09 07:15] LABS: ANISOCYTOSIS 3+; MICROCYTOSIS 1+; POIKILOCYTOSIS 1+; POLYCHROMASIA FEW
[2022-11-09] MEDS: apixaban 5mg tablet PO SCH ×2 (07:59→19:26)
[2022-11-09] MEDS: levoFLOXACIN-Levaquin 250mg/D5 50 ML IV SCH (07:59)
[2022-11-09] MEDS: potassium Cl 20 mEq SR tablet PO PRN ×3 (07:59→22:28)
[2022-11-09] MEDS: K and/or MAG REPLACEMENT MC SCH ×2 (08:00→20:00)
[2022-11-09] MEDS: docusate sod 100mg capsule PO SCH ×2 (08:00→08:03)
[2022-11-09] MEDS: metoprolol tartrate 25mg tablet PO SCH ×2 (08:02→20:01)
[2022-11-09] MEDS: ferrous sulfate 325mg tablet PO SCH ×3 (08:02→20:09)
[2022-11-09] MEDS: diltiazem CD 120mg capsule (once-daily) PO SCH (08:02)
[2022-11-09] MEDS: furosemide 40mg/4ml inj IV SCH ×2 (08:03→20:01)
[2022-11-09 11:00] VITALS: BP 98/62
[2022-11-09 15:00] VITALS: BP 99/62
--- NOTE | 2022-11-09 15:51 | NUR ---
Wound care in for skin assessment/TX. The pt. is sitting on the side of the bed in no apparent acute distress. Greeted and explained intent. He states that he was just assisted by nursing with the right buttock wound care. He asked that he not have to repeat the process as he is tired and nothing has changed. The plan of care is that he will have a diverting loop colostomy placed tomorrow morning in an effort to promote healing to the right buttock perirectal cutaneous fistula. Assessment/treatment deferred secondary to pt. request. [facility] will continue to follow as the pt. remains at risk for skin breakdown. Addendum: 11/09/22 at 1553 by Carlita Hernandez RN ADDENDUM- I, Carlita Hernandez RN, agree with interventions and assessments of AKIL Morejon on this patient Addendum: 11/09/22 at 1554 by Darleen Manuel LVN Amended: Links added.
[2022-11-09 18:00] VITALS: BP 119/73
--- NOTE | 2022-11-09 19:23 | NUR ---
ELIQUIS: PATIENT HAS ELIQUIS SCHEDULED BID. AM DOSE WAS GIVEN. CALL PLACED TO [address] CARRASCO. OKAY TO HOLD PM DOSE AND UPDATE DR. MARTINEZ IN THE AM.
[2022-11-09] MEDS ORDERED: polyethylene glycol 3350 17gm powd pack PO STA (19:41)
[2022-11-09 22:00] VITALS: BP 92/55
[2022-11-09] MEDS ORDERED: polyethylene glycol 3350 17gm powd pack PO ONE (22:45)
[2022-11-10] VITALS (25 sets, daily range): BP systolic 93–147; BP diastolic 48–81
--- NOTE | 2022-11-10 03:01 | NUR ---
CONSENT COMPLETED AND PLACED ON CHART. PATIENT CONTINUES TO HAVE LOOSE STOOLS, BUT STILL NOT CLEAR AT THIS TIME. CHG BATH COMPLETED.
[2022-11-10 06:04] LABS: BASOPHILS # (AUTO) 0.1 X10'3 (0-0.2); BASOPHILS % (AUTO) 1.2 % (0-1); EOSINOPHILS # (AUTO) 0.1 X10'3 (0-0.9); EOSINOPHILS % (AUTO) 1.6 % (0-6); HEMOGLOBIN 11.6 g/dl (14.0-17.9); LYMPHOCYTES # (AUTO) 0.9 X10'3 (1.1-4.8); LYMPHOCYTES % (AUTO) 13.8 % (21-51); MEAN CORPUSCULAR HEMOGLOBIN 24.6 PG (27.0-31.0); MEAN CORPUSCULAR HGB CONC 29.8 g/dL (33.0-36.5); MEAN CORPUSCULAR VOLUME 82.6 FL (78-98); MEAN PLATELET VOLUME 8.1 FL (7.4-10.4); MONOCYTES # (AUTO) 0.7 X10'3 (0-0.9); MONOCYTES % (AUTO) 10.6 % (2-12); NEUTROPHILS # (AUTO) 4.6 X10'3 (1.8-7.7); NEUTROPHILS % (AUTO) 72.8 % (42-75); PLATELET COUNT 253 X10'3 (140-440); RED BLOOD COUNT 4.73 X10'6 (4.70-6.10); RED CELL DISTRIBUTION WIDTH 27.6 % (11.5-14.5); WHITE BLOOD COUNT 6.4 X10'3 (4.5-11.0)
[2022-11-10 06:30] LABS: ALBUMIN 2.5 G/DL (3.4-5.0); ANION GAP 8 (8-16); BLOOD UREA NITROGEN 24 MG/DL (7-18); BUN/CREATININE RATIO 14.3 (5.4-32.0); CALCIUM 8.2 MG/DL (8.5-10.1); CHLORIDE 100 MMOL/L (99-107); CREATININE 1.68 MG/DL (0.60-1.10); GLUCOSE 86 MG/DL (70-104); MAGNESIUM 1.8 MG/DL (1.5-2.4); POTASSIUM 3.7 MMOL/L (3.5-5.1); SODIUM 141 MMOL/L (135-145); TOTAL CARBON DIOXIDE 33.2 MMOL/L (24-32); eGFR 42 ML/MIN
[2022-11-10 06:46] LABS: C DIFF SPECIMEN=DIARRHEA? ACCEPTABLE; C DIFFICILE TOXINS A&B NEGATIVE (Neg)
[2022-11-10 06:54] LABS: ANISOCYTOSIS 3+; ELLIPTOCYTES FEW; MICROCYTOSIS 1+; PLATELET ESTIMATE NORMAL; POLYCHROMASIA FEW; TARGET CELLS FEW; TOTAL CELLS COUNTED 100
[2022-11-10] MEDS: apixaban 5mg tablet PO SCH ×2 (08:00→19:17)
[2022-11-10] MEDS: K and/or MAG REPLACEMENT MC SCH ×2 (08:00→18:46)
[2022-11-10] MEDS: ferrous sulfate 325mg tablet PO SCH ×3 (08:26→19:17)
[2022-11-10] MEDS: furosemide 40mg/4ml inj IV SCH ×2 (08:26→19:17)
[2022-11-10] MEDS: diltiazem CD 120mg capsule (once-daily) PO SCH (08:26)
[2022-11-10] MEDS: metoprolol tartrate 25mg tablet PO SCH ×2 (08:27→19:17)
--- NOTE | 2022-11-10 08:39 | NUR ---
Initial: Pt admit DX afib RVR, acute CHF exacerbation, chronic anemia, acute worsening of chronic renal failure, BLE anasarca, and complex perineal fistula pending OR today for colostomy placement per EMR. Pt hx prior colostomy w/ reversal per EMR. PO 100% mostly Na-restricted diet meeting estimated needs. LBM 11/10 per EMR. Will monitor for further nutrition intervention needs this admit. Rec: 1. advanced diet to low-residue as medically indicated post-op; encourage PO 2. monitor for PO trends and ONS needs post-op; initial PO adequate 3. MVI supplementation per physician discretion post-op 4. bowel care per rx 5. scaled wt this admit; subsequent weekly wts Addendum: 11/10/22 at [address] Amended: Links added.
[2022-11-10] MEDS ORDERED: ringers solution, lacted 1,000 ML IV SCH (09:05)
[2022-11-10] MEDS ORDERED: morphine 4 MG/ML inj SYRINge IV PRN (09:05)
[2022-11-10] MEDS ORDERED: labetalol 20mg/4ml (5mg/ml) syringe IV PRN (09:05)
[2022-11-10] MEDS ORDERED: meperidine/PF 25mg/ml syringe IV PRN ×3 (09:05)
[2022-11-10] MEDS ORDERED: hydrALAZINE 20mg/ml inj. IV PRN (09:05)
[2022-11-10] MEDS ORDERED: acetaminophen 1,000mg/100ml IV 100 ML IV PRN (09:05)
[2022-11-10] MEDS ORDERED: ondansetron/PF 4mg/2ml inj IV PRN (09:05)
[2022-11-10] MEDS ORDERED: morphine 2 MG/ML inj. syringe IV PRN (09:05)
[2022-11-10] MEDS ORDERED: proCHLORperazine 10 MG/2 ml inj IV PRN (09:05)
--- NOTE | 2022-11-10 10:00 | NUR ---
Pt left via bed to surgery.
[2022-11-10] MEDS ORDERED: sevoflurane 250ml liquid IH ONE (10:15)
[2022-11-10] MEDS ORDERED: midazolam 1 mg/ML 2ml injection ONE (10:25)
[2022-11-10] MEDS ORDERED: fentaNYL /PF 50mcg/ml 5ml ampule ONE (10:55)
--- NOTE | 2022-11-10 11:00 | NUR ---
OR called and stated that pt will be going to CICU room 2013 when done with surgery. Called to give report to receiving RN. CICU RN not available to take report. That RN will call me back when ready. Gathered all pt's belongings. BK Cruz is taking down to CICU room 2013.
[2022-11-10] MEDS ORDERED: propofol inj 20 ML IV ONE (11:06)
[2022-11-10] MEDS ORDERED: ondansetron/PF 4mg/2ml inj ONE (11:06)
[2022-11-10] MEDS ORDERED: rocuronium 10mg/ml inj IV ONE ×2 (11:06→11:39)
[2022-11-10] MEDS ORDERED: dexamethasone sod phosphate 4mg/ml inj. ONE (11:06)
[2022-11-10] MEDS ORDERED: LIDOcaine 2% (20mg/ml) 5ml vial ONE (11:06)
[2022-11-10] MEDS ORDERED: 0.9 % SODIUM CHLORIDE 10 ML VIAL ONE (11:39)
[2022-11-10] MEDS ORDERED: ePHEDrine 50MG/ML INJ. ONE (11:39)
[2022-11-10] MEDS ORDERED: LORazepam 2 mg/ml vial ONE (12:03)
[2022-11-10] MEDS ORDERED: midazolam 1 mg/ML 2ml injection IV PRN (12:05)
[2022-11-10] MEDS ORDERED: fentaNYL/PF 50MCG/1 ML 2ML syringe IV PRN (12:05)
--- NOTE | 2022-11-10 12:29 | NUR ---
Received from OR via , accompanied by Anesthesiologist: DR AVINA and report given by Anesthesiolgist. VSS. JULIANA PRESENT.F/C WITH 900 IN THE BAG. ILIOSTOMY WITH OPEN INCISION WITH AN ISLAND DRESSING.ONE BANDAGE ON LEFT OF ISLAND BETWEEN ILIOSOTOMY BAG. 20 G ON RIGHT HAND LR RUNNING. PATIENT INTUBATED AND VENTED, RECOVERING IN THE ICU. Addendum: 11/10/22 at 1235 by Cinthya Kerr RN Amended: Links added.
[2022-11-10 12:59] LABS: ABG BASE EXCESS 6.2 mmol/L (-2.0-2.0); ABG HCO3 31.6 mmol/L (22.0-26.0); ABG OXYGEN SATURATION 98.2 % (94-97); ABG PCO2 (T) 46.3 mmHg (35.0-48.0); ABG PO2 (T) 103.4 mmHg (75.0-100.0); FCOHb 1.3 % (0.0-3.9); FMetHb 0.3 % (0.0-1.5); FO2Hb 96.6 % (94-97); PATIENT TEMPERATURE 35.7; PEEP 5 cm H2O; RESPIRATORY RATE 14 b/min; TIDAL VOLUME 450 mL; TOTAL HEMOGLOBIN 12.6 G/dl (14.0-17.9)
[2022-11-10] MEDS: propofol 1000mg/100ml bottle 100 ML IV SCH (13:08)
--- NOTE | 2022-11-10 13:30 | NUR ---
PT INTUBATED DURING SURGICAL PROCEDURE AND RECOVERED IN ICU. RT WRIST ART LINE. SPORT PSYCHOLOGIST ON SITE CONNECTING TO VENT AND GETTING ABG. ELENA IS ICU NURSE TAKING PT OVER; WAS RUNNER FOR PACU NURSE UNTIL REPORT GIVEN AT 1330 WHEN SHE ASSUMED CARE. PT PUPILS 2MM; PERRL. FALCON PLACED IN OR; 800ML'S OUT THAT ICU WILL DOCUMENT. 20G LT FOREARM PIV WITH PROPOFOL AND LR INFUSING. PULSES WEAK; PEDIS. ST TO SR OTHERWISE VSS. Addendum: 11/10/22 at 1356 by Diane Grajeda RN Amended: Links added.
[2022-11-10] MEDS: levoFLOXACIN 250mg tablet PO SCH (14:48)
[2022-11-10] MEDS: FENTANYL-0.9 % NACL/PF 100 ML IV PRN (14:49)
[2022-11-10] MEDS: pantoprazole 40MG/NS 100ML BAG 100 ML IV SCH (18:10)
[2022-11-11] VITALS (33 sets, daily range): BP systolic 74–154; BP diastolic 42–73
[2022-11-11] MEDS: acetaminophen 325mg tablet PO PRN (00:16)
--- NOTE | 2022-11-11 00:55 | NUR ---
Call placed to Dr. Del Valle for IV fluids and/or albumin orders due to soft sbp 79-89 and inadequate sedation. patient awake, alert and oriented x 3. Reports cramping abdominal pain despite tylenol and current fentanyl IV drip at 10 mcg/kg/min. Pt unable to tolerate higher dosage of sedative secondary to soft sbp's. pt is s/p diverting ileostomy procedure done yesterday. Abdomen is soft, obese and slightly tender. Incision are clean and dry with minimal serosanguineous drainage. Sanguineous drainage noted in ileostomy bag, same from baseline.
--- NOTE | 2022-11-11 01:30 | NUR ---
ALEJANDRO Billingsley called for orders regarding pt low MAP. One time bolus of 500ml Lactated Ringer and PRN norepinephrine ordered and given. Addendum: 11/11/22 at 0340 by Francesca High RN note charted for incorrect time. Time of call to ALEJANDRO [id number]
--- NOTE | 2022-11-11 01:36 | NUR ---
placed a second call to for fluid and/or albumin orders due to sustained low sbp and map <65. Patient is awake, alert and oriented x3 with no complaints of pain at this time. Currently receiving propofol at 2.5mcg/kg/min and fentanyl 10mcg/kg/min which has not been adequate for sedation. Patient has an ETT and current vent settings are SIMV 14, tv 450, fiO2 60%, peep 5, PS 10.
[2022-11-11] MEDS ORDERED: ringers solution, lacted 500 ML IV SCH (02:20)
[2022-11-11 02:40] LABS: MAGNESIUM 1.4 MG/DL (1.5-2.4)
[2022-11-11 03:33] LABS: ABG BASE EXCESS 8.4 mmol/L (-2.0-2.0); ABG HCO3 33.9 mmol/L (22.0-26.0); ABG OXYGEN SATURATION 96.8 % (94-97); ABG PCO2 (T) 50.7 mmHg (35.0-48.0); FCOHb 0.2 % (0.0-3.9); FMetHb 0.2 % (0.0-1.5); FO2Hb 96.4 % (94-97); PATIENT TEMPERATURE 36.3; PEEP 5 cm H2O; RESPIRATORY RATE 14 b/min; TIDAL VOLUME 450 mL; TOTAL HEMOGLOBIN 10.3 G/dl (14.0-17.9)
[2022-11-11] MEDS ORDERED: amiodarone 150mg/dext, iso-os 100 ML IV ONE ×2 (05:40→09:40)
[2022-11-11] MEDS: amiodarone/D5 360MG/200ML BAG 200 ML IV SCH ×3 (05:59→13:56)
--- NOTE | 2022-11-11 06:35 | NUR ---
Patient in room CICU 2013. I have received report from Francesca KRISHNAMURTHY and had the opportunity to ask questions and assume patient care.
[2022-11-11] MEDS: K and/or MAG REPLACEMENT MC SCH ×2 (07:20→20:00)
[2022-11-11] MEDS: ferrous sulfate 325mg tablet PO SCH ×3 (07:20→19:37)
[2022-11-11] MEDS: diltiazem CD 120mg capsule (once-daily) PO SCH (07:20)
[2022-11-11] MEDS: NORepinephrine 8mg/ 250ml NS 250 ML IV PRN ×3 (07:26→21:27)
[2022-11-11] MEDS: furosemide 40mg/4ml inj IV SCH ×3 (07:27→19:37)
[2022-11-11] MEDS: apixaban 5mg tablet PO SCH ×3 (07:27→19:37)
--- NOTE | 2022-11-11 07:30 | NUR ---
Informed Dr. Franz that levophed was started last night in peripheral line and pt only has 1 PIV. Also informed amio was started at 0600 due to rapid afib in 150s. stated to turn sedation off and wean levophed, try for extubation.
[2022-11-11] MEDS: metoprolol tartrate 25mg tablet PO SCH ×3 (07:32→19:37)
[2022-11-11 08:11] LABS: ALANINE AMINOTRANSFERASE 13 U/L (12-78); ALBUMIN/GLOBULIN RATIO 0.5 (1.1-1.5); ALKALINE PHOSPHATASE 79 IU/L (46-116); ANION GAP 5 (8-16); ASPARTATE AMINO TRANSFERASE 17 U/L (10-37); BILIRUBIN,TOTAL 0.6 MG/DL (0.1-1.0); BLOOD UREA NITROGEN 33 MG/DL (7-18); BUN/CREATININE RATIO 13.5 (5.4-32.0); CALCIUM 7.4 MG/DL (8.5-10.1); CHLORIDE 102 MMOL/L (99-107); CREATININE 2.45 MG/DL (0.60-1.10); GLUCOSE 230 MG/DL (70-104); POTASSIUM 4.5 MMOL/L (3.5-5.1); SODIUM 141 MMOL/L (135-145); TOTAL CARBON DIOXIDE 33.6 MMOL/L (24-32); TOTAL PROTEIN 5.7 G/DL (6.4-8.2); eGFR 27 ML/MIN
[2022-11-11 08:26] LABS: BASOPHILS % (AUTO) 0.1 % (0-1); EOSINOPHILS % (AUTO) 0 % (0-6); HEMATOCRIT 30.7 % (42.0-52.0); HEMOGLOBIN 9.2 g/dl (14.0-17.9); LYMPHOCYTES # (AUTO) 0.8 X10'3 (1.1-4.8); LYMPHOCYTES % (AUTO) 3.8 % (21-51); MEAN CORPUSCULAR HEMOGLOBIN 24.5 PG (27.0-31.0); MEAN CORPUSCULAR HGB CONC 29.9 g/dL (33.0-36.5); MEAN CORPUSCULAR VOLUME 81.9 FL (78-98); MEAN PLATELET VOLUME 7.5 FL (7.4-10.4); MONOCYTES # (AUTO) 1.7 X10'3 (0-0.9); MONOCYTES % (AUTO) 8.3 % (2-12); NEUTROPHILS % (AUTO) 87.8 % (42-75); PLATELET COUNT 399 X10'3 (140-440); RED BLOOD COUNT 3.75 X10'6 (4.70-6.10); RED CELL DISTRIBUTION WIDTH 27.5 % (11.5-14.5); WHITE BLOOD COUNT 20.5 X10'3 (4.5-11.0)
--- NOTE | 2022-11-11 08:30 | NUR ---
Informed Dr. Franz that multiple PIV start attempts made, unable to get PIV, central line needed. Pt still afib in 140s, SBT done, following commands but very restless and anxious. MD stated wants to look at chest xray when done to decide about extubation. MD stated to keep trying for another PIV.
[2022-11-11 09:15] LABS: PLATELET ESTIMATE NORMAL
[2022-11-11 09:16] LABS: HYPOCHROMASIA 2+
[2022-11-11 09:17] LABS: ANISOCYTOSIS 3+; POLYCHROMASIA FEW
[2022-11-11 09:20] LABS: ELLIPTOCYTES FEW; STOMATOCYTES 1+; TARGET CELLS FEW; TEAR DROP CELLS 2+
--- NOTE | 2022-11-11 09:30 | NUR ---
Informed Dr. Franz that PIV access was attempted and still unable to get another PIV. ordred LR bolus, ativan, blood cultures, precedex. stated he would place central line.
[2022-11-11] MEDS: dexmedetomidin/NS 400mcg/100ml 100 ML IV SCH ×2 (09:40→19:40)
[2022-11-11] MEDS ORDERED: ringers solution, lacted 1,000 ML IV ONE (09:40)
[2022-11-11] MEDS ORDERED: LORazepam 2 mg/ml vial IV PRN (09:40)
[2022-11-11] MEDS: levoFLOXACIN 250mg tablet PO SCH (11:00)
[2022-11-11] MEDS ORDERED: albumin (human) 25% 100ml IV 100 ML in dextrose 5% water 500ml 400 ML IV ONE (11:40)
--- NOTE | 2022-11-11 11:41 | NUR ---
Dr. Cook at bedside to see pt. Informed MD of pt on Levophed 0.5 in peripheral line, urine output low at 10-15/hr, lasix held due to Cr 2.45, pt was in rapid afib 140s--another 75mg amio bolus given, unable to extubate, MD reviewed chest xray. MD stated okay to have OG meds including Eliquis, informed that blood cultures were done. MD ordered central line, CVP, and Echo, and Albumin 5% 500ml. Informed MD that central line has been requested since this morning at shift change-Dr. Franz aware and will place line.
[2022-11-11 11:54] LABS: MAGNESIUM 1.6 MG/DL (1.5-2.4)
[2022-11-11] MEDS: propofol 1000mg/100ml bottle 100 ML IV SCH ×3 (12:47→19:51)
[2022-11-11] MEDS: pantoprazole 40MG/NS 100ML BAG 100 ML IV SCH (12:48)
[2022-11-11] MEDS ORDERED: albumin (Human) 5% 250ml 250 ML IV ONE ×2 (13:00)
[2022-11-11] MEDS: mineral oil/petrolatum ophthal oint EACHEYE SCH ×2 (14:21→19:37)
[2022-11-11] MEDS ORDERED: dextrose 50%-water 50ml dispensing syringe IV PRN ×2 (14:35)
[2022-11-11] MEDS: aztreonam inj. 1,000 MG in normal saline 100ml IV soln 100 ML IV SCH ×2 (14:35→19:38)
[2022-11-11] MEDS: levoFLOXACIN-Levaquin 500mg/D5 100 ML IV SCH (15:06)
[2022-11-11] MEDS: insulin regular, human U-100 3ml vial - multi-dose SQ SCH ×2 (15:07→19:48)
--- NOTE | 2022-11-11 18:11 | NUR ---
Problems reprioritized. Patient report given, questions answered & plan of care reviewed with Francesca KRISHNAMURTHY.
[2022-11-11] MEDS: insulin glargine (Lantus) pen - multi-dose SQ SCH (19:49)
[2022-11-12] VITALS (36 sets, daily range): BP systolic 91–157; BP diastolic 36–76
[2022-11-12] MEDS: amiodarone/D5 360MG/200ML BAG 200 ML IV SCH ×4 (00:26→18:04)
[2022-11-12] MEDS: propofol 1000mg/100ml bottle 100 ML IV SCH ×4 (00:27→20:12)
[2022-11-12] MEDS: mineral oil/petrolatum ophthal oint EACHEYE SCH ×4 (02:08→20:11)
[2022-11-12] MEDS: aztreonam inj. 1,000 MG in normal saline 100ml IV soln 100 ML IV SCH ×4 (02:08→20:11)
[2022-11-12] MEDS: insulin regular, human U-100 3ml vial - multi-dose SQ SCH ×2 (02:10→08:10)
[2022-11-12 03:11] LABS: BASOPHILS # (AUTO) 0.1 X10'3 (0-0.2); BASOPHILS % (AUTO) 0.6 % (0-1); EOSINOPHILS % (AUTO) 0 % (0-6); HEMATOCRIT 24.1 % (42.0-52.0); HEMOGLOBIN 7.1 g/dl (14.0-17.9); LYMPHOCYTES # (AUTO) 1.2 X10'3 (1.1-4.8); MEAN CORPUSCULAR HEMOGLOBIN 24.6 PG (27.0-31.0); MEAN CORPUSCULAR HGB CONC 29.5 g/dL (33.0-36.5); MEAN CORPUSCULAR VOLUME 83.4 FL (78-98); MEAN PLATELET VOLUME 7.7 FL (7.4-10.4); MONOCYTES # (AUTO) 1.5 X10'3 (0-0.9); NEUTROPHILS # (AUTO) 12.2 X10'3 (1.8-7.7); NEUTROPHILS % (AUTO) 81.4 % (42-75); PLATELET COUNT 305 X10'3 (140-440); RED BLOOD COUNT 2.89 X10'6 (4.70-6.10); RED CELL DISTRIBUTION WIDTH 26.9 % (11.5-14.5)
[2022-11-12 03:18] LABS: ALANINE AMINOTRANSFERASE 58 U/L (12-78); ALBUMIN 2.1 G/DL (3.4-5.0); ALBUMIN/GLOBULIN RATIO 0.7 (1.1-1.5); ALKALINE PHOSPHATASE 62 IU/L (46-116); ANION GAP 8 (8-16); ASPARTATE AMINO TRANSFERASE 71 U/L (10-37); BILIRUBIN,TOTAL 0.4 MG/DL (0.1-1.0); BLOOD UREA NITROGEN 42 MG/DL (7-18); BUN/CREATININE RATIO 15.7 (5.4-32.0); CALCIUM 7.4 MG/DL (8.5-10.1); CHLORIDE 100 MMOL/L (99-107); CREATININE 2.68 MG/DL (0.60-1.10); GLUCOSE 180 MG/DL (70-104); MAGNESIUM 1.6 MG/DL (1.5-2.4); POTASSIUM 4.2 MMOL/L (3.5-5.1); SODIUM 140 MMOL/L (135-145); TOTAL CARBON DIOXIDE 32.1 MMOL/L (24-32); TOTAL PROTEIN 5.2 G/DL (6.4-8.2); eGFR 24 ML/MIN
[2022-11-12 03:39] LABS: ABG BASE EXCESS 5.1 mmol/L (-2.0-2.0); ABG HCO3 30.2 mmol/L (22.0-26.0); ABG OXYGEN SATURATION 94.8 % (94-97); ABG PO2 (T) 78.9 mmHg (75.0-100.0); FCOHb 0.6 % (0.0-3.9); FMetHb 0.3 % (0.0-1.5); FO2Hb 93.9 % (94-97); PATIENT TEMPERATURE 36.4; RESPIRATORY RATE 14 b/min; TIDAL VOLUME 450 mL; TOTAL HEMOGLOBIN 7.7 G/dl (14.0-17.9)
[2022-11-12 04:29] LABS: PLATELET ESTIMATE NORMAL
[2022-11-12 04:30] LABS: ANISOCYTOSIS 3+; TARGET CELLS 1+
[2022-11-12] MEDS: dexmedetomidin/NS 400mcg/100ml 100 ML IV SCH ×2 (05:53→15:40)
[2022-11-12] MEDS: pantoprazole 40MG/NS 100ML BAG 100 ML IV SCH (07:03)
[2022-11-12] MEDS: ferrous sulfate 325mg tablet PO SCH ×4 (07:35→20:10)
[2022-11-12] MEDS: levoFLOXACIN-Levaquin 500mg/D5 100 ML IV SCH (07:35)
[2022-11-12] MEDS: apixaban 5mg tablet PO SCH ×2 (07:36→20:10)
[2022-11-12] MEDS: furosemide 40mg/4ml inj IV SCH (07:36)
[2022-11-12] MEDS: metoprolol tartrate 25mg tablet PO SCH ×2 (08:00→20:11)
[2022-11-12] MEDS: K and/or MAG REPLACEMENT MC SCH ×2 (08:00→18:25)
[2022-11-12] MEDS: diltiazem CD 120mg capsule (once-daily) PO SCH (08:00)
[2022-11-12] MEDS: NORepinephrine 8mg/ 250ml NS 250 ML IV PRN (11:10)
[2022-11-12] MEDS ORDERED: normal saline 1000ml 1,000 ML IV ONE (11:30)
[2022-11-12] MEDS ORDERED: albumin (human) 25% 100ml IV 300 ML IV ONE (11:30)
--- NOTE | 2022-11-12 12:18 | NUR ---
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 Current sedation to be weaned w/ hopes of extubation as able per credit collector at rounds; Propofol at 9ml/hr visualized by RD providing 238 kcals/day. Pt ate mostly ~100% Na-restricted diet prior to OR currently NPO; consider trickle EN if to remain intubated post-op. Two BM's this AM though from anus likely stool retained in colon prior to OR per MD at rounds. Upon extubation would benefit from removal of Na restriction and change to low-residue diet. TF recs below in case prolonged intubation. Will continue to follow. Rec: 1. IF prolonged intubation; Vital HP at 80ml/hr would provide 1920ml volume/day, 1920 kcals, 1605ml water, and 168g protein. Consider Ulysses BID for wound healing 2. IF Propofol remains at 9ml/hr providing 238 kcals/day and EN to start; Vital HP at 70ml/hr 3. advanced diet to low-residue as medically indicated upon extubation post-op; cancel Na-restriction given now w/ Ileostomy 4. MVI supplementation per physician discretion post-op 5. bowel care per rx 6. scaled wt this admit; subsequent daily wts 7. Ileostomy diet ed once appropriate following extubation prior to discharge Addendum: 11/12/22 at [address] Amended: Links added.
[2022-11-12] MEDS: albumin (Human) 5% 250ml 250 ML IV SCH ×4 (13:00→22:35)
[2022-11-12] MEDS: FENTANYL-0.9 % NACL/PF 100 ML IV PRN ×2 (13:01→23:22)
[2022-11-12] MEDS ORDERED: gelatin sponge, absorbable (Gelfoam-100 compressed) sponge TP ONE (19:10)
[2022-11-12] MEDS: insulin glargine (Lantus) pen - multi-dose SQ SCH (20:42)
[2022-11-13] VITALS (49 sets, daily range): BP systolic 91–145; BP diastolic 42–74
[2022-11-13] MEDS: amiodarone/D5 360MG/200ML BAG 200 ML IV SCH ×5 (00:09→23:32)
[2022-11-13] MEDS: propofol 1000mg/100ml bottle 100 ML IV SCH ×4 (00:12→19:46)
[2022-11-13] MEDS: dexmedetomidin/NS 400mcg/100ml 100 ML IV SCH ×3 (01:40→21:40)
[2022-11-13] MEDS: mineral oil/petrolatum ophthal oint EACHEYE SCH ×4 (01:56→20:08)
[2022-11-13] MEDS: albumin (Human) 5% 250ml 250 ML IV SCH ×6 (01:56→21:25)
[2022-11-13] MEDS: aztreonam inj. 1,000 MG in normal saline 100ml IV soln 100 ML IV SCH ×4 (01:56→20:08)
[2022-11-13] MEDS: NORepinephrine 8mg/ 250ml NS 250 ML IV PRN ×2 (01:57→23:32)
[2022-11-13 02:39] LABS: BASOPHILS % (AUTO) 0.5 % (0-1); EOSINOPHILS % (AUTO) 0.6 % (0-6); LYMPHOCYTES # (AUTO) 0.9 X10'3 (1.1-4.8); LYMPHOCYTES % (AUTO) 12.6 % (21-51); MEAN CORPUSCULAR HGB CONC 28.8 g/dL (33.0-36.5); MEAN CORPUSCULAR VOLUME 83.5 FL (78-98); MEAN PLATELET VOLUME 7.3 FL (7.4-10.4); MONOCYTES # (AUTO) 0.6 X10'3 (0-0.9); MONOCYTES % (AUTO) 8.7 % (2-12); NEUTROPHILS # (AUTO) 5.6 X10'3 (1.8-7.7); NEUTROPHILS % (AUTO) 77.6 % (42-75); PLATELET COUNT 167 X10'3 (140-440); RED BLOOD COUNT 2.16 X10'6 (4.70-6.10); RED CELL DISTRIBUTION WIDTH 26.8 % (11.5-14.5); WHITE BLOOD COUNT 7.2 X10'3 (4.5-11.0)
[2022-11-13 02:48] LABS: HEMOGLOBIN 5.2 g/dl (14.0-17.9)
[2022-11-13 02:49] LABS: HEMATOCRIT 18.1 % (42.0-52.0)
[2022-11-13 02:59] LABS: ALANINE AMINOTRANSFERASE 29 U/L (12-78); ALBUMIN/GLOBULIN RATIO 1.3 (1.1-1.5); ALKALINE PHOSPHATASE 51 IU/L (46-116); ANION GAP 7 (8-16); ASPARTATE AMINO TRANSFERASE 32 U/L (10-37); BILIRUBIN,TOTAL 0.4 MG/DL (0.1-1.0); BLOOD UREA NITROGEN 34 MG/DL (7-18); BUN/CREATININE RATIO 17.3 (5.4-32.0); CALCIUM 7.8 MG/DL (8.5-10.1); CHLORIDE 102 MMOL/L (99-107); CREATININE 1.96 MG/DL (0.60-1.10); GLUCOSE 124 MG/DL (70-104); MAGNESIUM 1.7 MG/DL (1.5-2.4); PHOSPHORUS 3.8 MG/DL (2.3-4.5); POTASSIUM 3.2 MMOL/L (3.5-5.1); SODIUM 143 MMOL/L (135-145); TOTAL CARBON DIOXIDE 34.2 MMOL/L (24-32); TOTAL PROTEIN 5.4 G/DL (6.4-8.2); eGFR 35 ML/MIN
--- NOTE | 2022-11-13 03:05 | NUR ---
critical hgb 5.2 reported to Fahad Billingsley NP. 2 units prbc ordered.
[2022-11-13 04:35] LABS: ANISOCYTOSIS 3+; ELLIPTOCYTES FEW; PLATELET ESTIMATE NORMAL; TARGET CELLS 1+; TEAR DROP CELLS FEW
[2022-11-13 04:39] LABS: LARGE PLATELETS FEW
[2022-11-13 04:40] LABS: POLYCHROMASIA FEW
[2022-11-13 05:12] LABS: ABG BASE EXCESS 6.6 mmol/L (-2.0-2.0); ABG OXYGEN SATURATION 90.9 % (94-97); ABG PCO2 (T) 44.4 mmHg (35.0-48.0); ABG PO2 (T) 66.3 mmHg (75.0-100.0); FCOHb 0.2 % (0.0-3.9); FMetHb 0.7 % (0.0-1.5); FO2Hb 90.1 % (94-97); PEEP 5 cm H2O; RESPIRATORY RATE 14 b/min; TIDAL VOLUME 450 mL; TOTAL HEMOGLOBIN 6.1 G/dl (14.0-17.9)
--- NOTE | 2022-11-13 06:41 | NUR ---
Patient in room CICU 2013. I have received report from Francesca KRISHNAMURTHY and had the opportunity to ask questions and assume patient care.
[2022-11-13] MEDS: ferrous sulfate 325mg tablet PO SCH ×3 (07:16→20:41)
[2022-11-13] MEDS: diltiazem CD 120mg capsule (once-daily) PO SCH (07:16)
[2022-11-13] MEDS: metoprolol tartrate 25mg tablet PO SCH ×2 (07:16→20:00)
[2022-11-13] MEDS: pantoprazole 40MG/NS 100ML BAG 100 ML IV SCH (07:22)
[2022-11-13] MEDS: apixaban 5mg tablet PO SCH (07:23)
[2022-11-13] MEDS: K and/or MAG REPLACEMENT MC SCH (08:00)
[2022-11-13] MEDS ORDERED: normal saline 1000ml 1,000 ML IV ONE (08:30)
[2022-11-13] MEDS: levoFLOXACIN-Levaquin 250mg/D5 50 ML IV SCH (09:12)
[2022-11-13 09:41] LABS: MEAN CORPUSCULAR HEMOGLOBIN 25.9 PG (27.0-31.0); MEAN CORPUSCULAR HGB CONC 30.4 g/dL (33.0-36.5); MEAN CORPUSCULAR VOLUME 85.2 FL (78-98); MEAN PLATELET VOLUME 7.1 FL (7.4-10.4); PLATELET COUNT 180 X10'3 (140-440); RED CELL DISTRIBUTION WIDTH 24.4 % (11.5-14.5); WHITE BLOOD COUNT 8.1 X10'3 (4.5-11.0)
[2022-11-13 09:46] LABS: HEMATOCRIT 21.3 % (42.0-52.0); HEMOGLOBIN 6.5 g/dl (14.0-17.9)
[2022-11-13] MEDS: potassium Cl 20mEq/100mL bag 100 ML IV PRN ×2 (10:14→11:41)
[2022-11-13 12:01] LABS: ABG BASE EXCESS 7.5 mmol/L (-2.0-2.0); ABG HCO3 32.9 mmol/L (22.0-26.0); ABG OXYGEN SATURATION 92.4 % (94-97); ABG PO2 (T) 65.3 mmHg (75.0-100.0); FCOHb 0.8 % (0.0-3.9); FMetHb 0.5 % (0.0-1.5); FO2Hb 91.2 % (94-97); PATIENT TEMPERATURE 36.1; PEEP 5 cm H2O; TIDAL VOLUME 219 mL
--- NOTE | 2022-11-13 17:00 | NUR ---
Informed Dr. Robles about pt bleeding from surgical incision and possibly ileostomy, bruising noted to Right abdomen, line drawn around area to monitor worsening. ordered Q6 Hemogram and to redress dressing and watch closely. Pt currently getting 3rd unit of blood at this time. Addendum: 11/13/22 at 1758 by Jolanta Tolentino RN Dr. Robles ordred to hold Sharmaine.
[2022-11-13] MEDS: FENTANYL-0.9 % NACL/PF 100 ML IV PRN (18:18)
--- NOTE | 2022-11-13 18:19 | NUR ---
Patient in room CICU 2013. I have received report from Jolanta KRISHNAMURTHY and had the opportunity to ask questions and assume patient care.
--- NOTE | 2022-11-13 18:20 | NUR ---
Problems reprioritized. Patient report given, questions answered & plan of care reviewed with Georgette KRISHNAMURTHY.
[2022-11-13 20:26] LABS: HEMATOCRIT 23.6 % (42.0-52.0); HEMOGLOBIN 7.4 g/dl (14.0-17.9); MEAN CORPUSCULAR HEMOGLOBIN 26.6 PG (27.0-31.0); MEAN CORPUSCULAR HGB CONC 31.3 g/dL (33.0-36.5); MEAN CORPUSCULAR VOLUME 84.8 FL (78-98); MEAN PLATELET VOLUME 7.2 FL (7.4-10.4); PLATELET COUNT 167 X10'3 (140-440); RED BLOOD COUNT 2.78 X10'6 (4.70-6.10); RED CELL DISTRIBUTION WIDTH 21.7 % (11.5-14.5)
[2022-11-13] MEDS: insulin glargine (Lantus) pen - multi-dose SQ SCH (20:41)
[2022-11-14] VITALS (32 sets, daily range): BP systolic 94–125; BP diastolic 58–82
[2022-11-14] MEDS: albumin (Human) 5% 250ml 250 ML IV SCH ×8 (00:41→21:41)
[2022-11-14] MEDS: mineral oil/petrolatum ophthal oint EACHEYE SCH ×4 (02:08→20:00)
[2022-11-14] MEDS: aztreonam inj. 1,000 MG in normal saline 100ml IV soln 100 ML IV SCH ×2 (02:08→07:09)
[2022-11-14 02:42] LABS: BASOPHILS % (AUTO) 0.6 % (0-1); EOSINOPHILS # (AUTO) 0.1 X10'3 (0-0.9); EOSINOPHILS % (AUTO) 1.4 % (0-6); HEMATOCRIT 22.9 % (42.0-52.0); HEMOGLOBIN 7.1 g/dl (14.0-17.9); LYMPHOCYTES # (AUTO) 0.9 X10'3 (1.1-4.8); LYMPHOCYTES % (AUTO) 11.2 % (21-51); MEAN CORPUSCULAR HEMOGLOBIN 26.6 PG (27.0-31.0); MEAN CORPUSCULAR HGB CONC 31.1 g/dL (33.0-36.5); MEAN CORPUSCULAR VOLUME 85.6 FL (78-98); MEAN PLATELET VOLUME 7.5 FL (7.4-10.4); MONOCYTES # (AUTO) 0.7 X10'3 (0-0.9); MONOCYTES % (AUTO) 8.1 % (2-12); NEUTROPHILS # (AUTO) 6.6 X10'3 (1.8-7.7); NEUTROPHILS % (AUTO) 78.7 % (42-75); PLATELET COUNT 165 X10'3 (140-440); RED BLOOD COUNT 2.68 X10'6 (4.70-6.10); RED CELL DISTRIBUTION WIDTH 22.2 % (11.5-14.5); WHITE BLOOD COUNT 8.4 X10'3 (4.5-11.0)
[2022-11-14 03:02] LABS: ALANINE AMINOTRANSFERASE 30 U/L (12-78); ALBUMIN/GLOBULIN RATIO 1.3 (1.1-1.5); ALKALINE PHOSPHATASE 52 IU/L (46-116); ANION GAP 4 (8-16); ASPARTATE AMINO TRANSFERASE 19 U/L (10-37); BILIRUBIN,TOTAL 0.7 MG/DL (0.1-1.0); BLOOD UREA NITROGEN 26 MG/DL (7-18); BUN/CREATININE RATIO 17.4 (5.4-32.0); CALCIUM 7.9 MG/DL (8.5-10.1); CHLORIDE 105 MMOL/L (99-107); CREATININE 1.49 MG/DL (0.60-1.10); GLUCOSE 89 MG/DL (70-104); MAGNESIUM 1.6 MG/DL (1.5-2.4); PHOSPHORUS 3.1 MG/DL (2.3-4.5); POTASSIUM 3.4 MMOL/L (3.5-5.1); SODIUM 143 MMOL/L (135-145); TOTAL CARBON DIOXIDE 33.8 MMOL/L (24-32); TOTAL PROTEIN 5.3 G/DL (6.4-8.2); eGFR 48 ML/MIN
[2022-11-14 03:52] LABS: ABG BASE EXCESS 5.7 mmol/L (-2.0-2.0); ABG HCO3 30.5 mmol/L (22.0-26.0); ABG OXYGEN SATURATION 96.1 % (94-97); ABG PCO2 (T) 45.4 mmHg (35.0-48.0); ABG PO2 (T) 85.3 mmHg (75.0-100.0); ALLEN'S TEST Modified; FCOHb 0.8 % (0.0-3.9); FMetHb 0.2 % (0.0-1.5); FO2Hb 95.1 % (94-97); PATIENT TEMPERATURE 36.4; PEEP 5 cm H2O; RESPIRATORY RATE 14 b/min; TOTAL HEMOGLOBIN 7.8 G/dl (14.0-17.9)
[2022-11-14] MEDS: FENTANYL-0.9 % NACL/PF 100 ML IV PRN (03:54)
[2022-11-14] MEDS: propofol 1000mg/100ml bottle 100 ML IV SCH (03:58)
[2022-11-14] MEDS: potassium Cl 20mEq/100mL bag 100 ML IV PRN ×2 (05:33→09:20)
--- NOTE | 2022-11-14 06:15 | NUR ---
Problems reprioritized. Patient report given, questions answered & plan of care reviewed with Jolanta KRISHNAMURTHY.
[2022-11-14] MEDS: amiodarone/D5 360MG/200ML BAG 200 ML IV SCH ×3 (06:28→22:32)
--- NOTE | 2022-11-14 06:45 | NUR ---
Patient in room CICU 2013. I have received report from Georgette KRISHNAMURTHY and had the opportunity to ask questions and assume patient care.
[2022-11-14] MEDS: K and/or MAG REPLACEMENT MC SCH (07:04)
[2022-11-14] MEDS: metoprolol tartrate 25mg tablet PO SCH ×2 (07:04→20:00)
[2022-11-14] MEDS: diltiazem CD 120mg capsule (once-daily) PO SCH (07:04)
[2022-11-14] MEDS: ferrous sulfate 325mg tablet PO SCH ×3 (07:04→21:00)
[2022-11-14] MEDS: pantoprazole 40MG/NS 100ML BAG 100 ML IV SCH (07:09)
[2022-11-14] MEDS: dexmedetomidin/NS 400mcg/100ml 100 ML IV SCH ×2 (07:40→17:40)
[2022-11-14 08:56] LABS: HEMATOCRIT 22.7 % (42.0-52.0); MEAN CORPUSCULAR HEMOGLOBIN 26.5 PG (27.0-31.0); MEAN CORPUSCULAR VOLUME 85.4 FL (78-98); MEAN PLATELET VOLUME 7.1 FL (7.4-10.4); PLATELET COUNT 156 X10'3 (140-440); RED BLOOD COUNT 2.65 X10'6 (4.70-6.10); RED CELL DISTRIBUTION WIDTH 21.7 % (11.5-14.5); WHITE BLOOD COUNT 7.7 X10'3 (4.5-11.0)
[2022-11-14] MEDS: levoFLOXACIN-Levaquin 250mg/D5 50 ML IV SCH (09:28)
--- NOTE | 2022-11-14 13:27 | NUR ---
Dr. Cook informed over the phone that midline surgical incision is draining a steady trickle of sanguinous drainage, eliquis on hold, 3 units PRBCs given yesterday, check hemogram q6H, pt extubated today. agreed with above and is okay with pt starting clear liquid diet.
[2022-11-14 14:02] LABS: HEMATOCRIT 23.9 % (42.0-52.0); HEMOGLOBIN 7.3 g/dl (14.0-17.9); MEAN CORPUSCULAR HEMOGLOBIN 26.3 PG (27.0-31.0); MEAN CORPUSCULAR HGB CONC 30.4 g/dL (33.0-36.5); MEAN CORPUSCULAR VOLUME 86.4 FL (78-98); MEAN PLATELET VOLUME 7.6 FL (7.4-10.4); PLATELET COUNT 165 X10'3 (140-440); RED BLOOD COUNT 2.76 X10'6 (4.70-6.10); RED CELL DISTRIBUTION WIDTH 21.4 % (11.5-14.5); WHITE BLOOD COUNT 9.4 X10'3 (4.5-11.0)
[2022-11-14] MEDS: metroNIDAZOLE-Flagyl 500mg/NS 100 ML IV SCH (15:55)
--- NOTE | 2022-11-14 18:23 | NUR ---
Problems reprioritized. Patient report given, questions answered & plan of care reviewed with Noemi KRISHNAMURTHY.
--- NOTE | 2022-11-14 20:00 | NUR ---
Upon assessment Patients abdomen was rigid. Notified DIRECTOR OF FIELD COORDINATION Analilia and attained H/H. Hgb was 7.0. 1 unit prbc's was ordered.
[2022-11-14 20:29] LABS: HEMATOCRIT 23.2 % (42.0-52.0); MEAN CORPUSCULAR HEMOGLOBIN 26.3 PG (27.0-31.0); MEAN CORPUSCULAR HGB CONC 30.4 g/dL (33.0-36.5); MEAN CORPUSCULAR VOLUME 86.6 FL (78-98); MEAN PLATELET VOLUME 7.5 FL (7.4-10.4); PLATELET COUNT 156 X10'3 (140-440); RED BLOOD COUNT 2.68 X10'6 (4.70-6.10); RED CELL DISTRIBUTION WIDTH 22.4 % (11.5-14.5); WHITE BLOOD COUNT 9.2 X10'3 (4.5-11.0)
[2022-11-14] MEDS: insulin glargine (Lantus) pen - multi-dose SQ SCH (21:00)
--- NOTE | 2022-11-14 21:45 | NUR ---
Notifed Dr. Reyes of rigid abd. Ordered to put in NG tube and see if it helps. Continuing to monitor closely
[2022-11-15] VITALS (24 sets, daily range): BP systolic 87–123; BP diastolic 54–74
[2022-11-15] MEDS: metroNIDAZOLE-Flagyl 500mg/NS 100 ML IV SCH ×3 (00:48→16:00)
[2022-11-15] MEDS: albumin (Human) 5% 250ml 250 ML IV SCH ×3 (00:50→07:10)
[2022-11-15] MEDS: mineral oil/petrolatum ophthal oint EACHEYE SCH ×4 (02:00→20:00)
[2022-11-15 02:41] LABS: BASOPHILS % (AUTO) 0.2 % (0-1); EOSINOPHILS % (AUTO) 0.1 % (0-6); HEMATOCRIT 26.9 % (42.0-52.0); HEMOGLOBIN 8.2 g/dl (14.0-17.9); LYMPHOCYTES # (AUTO) 0.1 X10'3 (1.1-4.8); LYMPHOCYTES % (AUTO) 0.7 % (21-51); MEAN CORPUSCULAR HEMOGLOBIN 26.8 PG (27.0-31.0); MEAN CORPUSCULAR HGB CONC 30.6 g/dL (33.0-36.5); MEAN CORPUSCULAR VOLUME 87.7 FL (78-98); MEAN PLATELET VOLUME 7.4 FL (7.4-10.4); MONOCYTES # (AUTO) 0.1 X10'3 (0-0.9); MONOCYTES % (AUTO) 0.9 % (2-12); NEUTROPHILS # (AUTO) 12.3 X10'3 (1.8-7.7); NEUTROPHILS % (AUTO) 98.1 % (42-75); PLATELET COUNT 162 X10'3 (140-440); RED BLOOD COUNT 3.06 X10'6 (4.70-6.10); RED CELL DISTRIBUTION WIDTH 19.9 % (11.5-14.5); WHITE BLOOD COUNT 12.5 X10'3 (4.5-11.0)
[2022-11-15 02:51] LABS: ALANINE AMINOTRANSFERASE 27 U/L (12-78); ALBUMIN 3.8 G/DL (3.4-5.0); ALBUMIN/GLOBULIN RATIO 1.5 (1.1-1.5); ALKALINE PHOSPHATASE 56 IU/L (46-116); ANION GAP 7 (8-16); ASPARTATE AMINO TRANSFERASE 19 U/L (10-37); BILIRUBIN,TOTAL 0.9 MG/DL (0.1-1.0); BLOOD UREA NITROGEN 22 MG/DL (7-18); BUN/CREATININE RATIO 16.8 (5.4-32.0); CALCIUM 8.1 MG/DL (8.5-10.1); CHLORIDE 106 MMOL/L (99-107); CREATININE 1.31 MG/DL (0.60-1.10); GLUCOSE 90 MG/DL (70-104); MAGNESIUM 1.7 MG/DL (1.5-2.4); PHOSPHORUS 4.5 MG/DL (2.3-4.5); POTASSIUM 3.7 MMOL/L (3.5-5.1); SODIUM 145 MMOL/L (135-145); TOTAL CARBON DIOXIDE 32.5 MMOL/L (24-32); TOTAL PROTEIN 6.3 G/DL (6.4-8.2); eGFR 56 ML/MIN
[2022-11-15 03:45] LABS: PLATELET ESTIMATE NORMAL; TOTAL CELLS COUNTED 100
[2022-11-15 03:46] LABS: ANISOCYTOSIS 2+
[2022-11-15 03:49] LABS: POLYCHROMASIA FEW
[2022-11-15 03:50] LABS: ELLIPTOCYTES FEW; MICROCYTOSIS 1+
--- NOTE | 2022-11-15 04:19 | NUR ---
Patient notified nurse of increasing difficulty to breathe and feels it is due to large rigid stomach. Xray ordered. Pt's vital's HR:113, BP:114/70, RESP:25, CVP:25, O2: 93% on 6LNC.
[2022-11-15] MEDS ORDERED: bumetanide 0.25mg/ml 4ml vial IV ONE (04:40)
--- NOTE | 2022-11-15 05:00 | NUR ---
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
[2022-11-15] MEDS: amiodarone/D5 360MG/200ML BAG 200 ML IV SCH ×4 (06:44→22:30)
[2022-11-15] MEDS: diltiazem CD 120mg capsule (once-daily) PO SCH (07:11)
[2022-11-15] MEDS: ferrous sulfate 325mg tablet PO SCH ×3 (07:12→20:17)
[2022-11-15] MEDS: pantoprazole 40MG/NS 100ML BAG 100 ML IV SCH (07:13)
[2022-11-15] MEDS: K and/or MAG REPLACEMENT MC SCH (07:13)
[2022-11-15] MEDS: metoprolol tartrate 25mg tablet PO SCH ×2 (07:13→20:00)
[2022-11-15] MEDS: levoFLOXACIN-Levaquin 250mg/D5 50 ML IV SCH (07:13)
[2022-11-15 08:22] LABS: ABG BASE EXCESS -3.4 mmol/L (-2.0-2.0); ABG HCO3 26.6 mmol/L (22.0-26.0); ABG PO2 (T) 63.9 mmHg (75.0-100.0); ALLEN'S TEST POSITIVE; FCOHb 0.6 % (0.0-3.9); FMetHb 0.3 % (0.0-1.5); FO2Hb 87.2 % (94-97); PATIENT TEMPERATURE 36.9; TOTAL HEMOGLOBIN 9.5 G/dl (14.0-17.9)
[2022-11-15 08:48] LABS: HEMOGLOBIN 8.4 g/dl (14.0-17.9); MEAN CORPUSCULAR HEMOGLOBIN 26.7 PG (27.0-31.0); MEAN PLATELET VOLUME 7.5 FL (7.4-10.4); PLATELET COUNT 184 X10'3 (140-440); RED BLOOD COUNT 3.14 X10'6 (4.70-6.10); RED CELL DISTRIBUTION WIDTH 20.3 % (11.5-14.5)
[2022-11-15 08:55] LABS: WHITE BLOOD COUNT 25.6 X10'3 (4.5-11.0)
--- NOTE | 2022-11-15 09:04 | NUR ---
Patient in room CICU 2013. I have received report from Noemi KRISHNAMURTHY and had the opportunity to ask questions and assume patient care.
[2022-11-15] MEDS ORDERED: furosemide 40mg/4ml inj IV ONE (10:30)
[2022-11-15] MEDS: furosemide inj 100 MG in normal saline 100ml IV soln 90 ML IV SCH ×2 (11:31→20:17)
[2022-11-15] MEDS: NORepinephrine inj. 32 MG in normal saline 250ml IV soln 218 ML IV SCH (11:33)
--- NOTE | 2022-11-15 11:52 | NUR ---
TPN consult: Pt extubated 11/14, with an NGT in place on LIS documented with 300 mL output 11/13. Diet advanced to clear liquids however pt unable to tolerate at this time d/t respiratory status requiring BiPAP and "large rigid stomach" per RN notes. Abdomen US report pending at this time. Pt to be NPO and begin TPN per MD. TPN recommendations below have been d/w clinical pharmacist. Per MD pt likely septic. LBM 11/14 documented with 100 mL stool output from ileostomy per I&O. Will continue to follow closely. Recommendations: 1) Continuous TPN using 2:1 Clinimix-E 03/23 with 100 mL/hr goal rate and additional 100 mL 20% ILE to run at 8.33 mL/hr for 12 hours daily. To provide 2400 mL total volume/day, 120 g AA, 480 g dext (3.33 mg/kg/min GIR), and 2312 kcal 2) Monitor for a scaled wt and adjust recs as appropriate 3) Prealbumin and TG q Saturday/ 4) Daily scaled weights 5) Advance to low fiber diet as medically indicated given new ileostomy 6) MVI supplementation per physician discretion post-op 7) bowel care per rx 8) Ileostomy nutrition therapy education once appropriate Addendum: 11/15/22 at [address] Amended: Links added.
[2022-11-15 14:06] LABS: HEMATOCRIT 25.5 % (42.0-52.0); HEMOGLOBIN 7.6 g/dl (14.0-17.9); MEAN CORPUSCULAR HEMOGLOBIN 26.5 PG (27.0-31.0); MEAN CORPUSCULAR HGB CONC 29.7 g/dL (33.0-36.5); MEAN CORPUSCULAR VOLUME 89.3 FL (78-98); MEAN PLATELET VOLUME 7.5 FL (7.4-10.4); PLATELET COUNT 183 X10'3 (140-440); RED BLOOD COUNT 2.86 X10'6 (4.70-6.10); RED CELL DISTRIBUTION WIDTH 19.2 % (11.5-14.5); WHITE BLOOD COUNT 24.4 X10'3 (4.5-11.0)
[2022-11-15 14:45] LABS: ABG BASE EXCESS 1.4 mmol/L (-2.0-2.0); ABG HCO3 29.2 mmol/L (22.0-26.0); ABG OXYGEN SATURATION 93.9 % (94-97); ABG PCO2 (T) 66.4 mmHg (35.0-48.0); ABG PO2 (T) 72.1 mmHg (75.0-100.0); ALLEN'S TEST POSITIVE; FCOHb 0.5 % (0.0-3.9); FMetHb 0.5 % (0.0-1.5); RESPIRATORY RATE 8 b/min; TOTAL HEMOGLOBIN 8.7 G/dl (14.0-17.9)
[2022-11-15] MEDS ORDERED: Dextrose 10%-water IV solution 1,000 ML IV PRN (17:00)
[2022-11-15] MEDS: fat emulsion 20% inj. 100 ML IV SCH (17:12)
[2022-11-15] MEDS: ZINC/COPPER/MANGANESE/SELENIUM 0.5 ML, chromic chloride inj. 5 MCG in AA 5%/CALCIUM/LYT... IV SCH (17:12)
[2022-11-15] MEDS: MVI, adult No.4 with vit. K 10 ML in dextrose 5% water 500ml 500 ML IV SCH ×2 (17:13)
--- NOTE | 2022-11-15 18:13 | NUR ---
Problems reprioritized. Patient report given, questions answered & plan of care reviewed with Noemi KRISHNAMURTHY.
[2022-11-15] MEDS: insulin glargine (Lantus) pen - multi-dose SQ SCH (21:00)
[2022-11-16] VITALS (22 sets, daily range): BP systolic 94–114; BP diastolic 56–76
[2022-11-16] MEDS: metroNIDAZOLE-Flagyl 500mg/NS 100 ML IV SCH ×3 (00:45→17:57)
[2022-11-16] MEDS: amiodarone/D5 360MG/200ML BAG 200 ML IV SCH ×4 (00:56→19:04)
[2022-11-16] MEDS: mineral oil/petrolatum ophthal oint EACHEYE SCH ×4 (02:00→19:03)
[2022-11-16 03:08] LABS: BASOPHILS # (AUTO) 0.1 X10'3 (0-0.2); BASOPHILS % (AUTO) 0.4 % (0-1); EOSINOPHILS # (AUTO) 0.2 X10'3 (0-0.9); EOSINOPHILS % (AUTO) 1.3 % (0-6); HEMATOCRIT 26.4 % (42.0-52.0); HEMOGLOBIN 7.9 g/dl (14.0-17.9); LYMPHOCYTES # (AUTO) 0.4 X10'3 (1.1-4.8); MEAN CORPUSCULAR HEMOGLOBIN 26.5 PG (27.0-31.0); MEAN CORPUSCULAR VOLUME 88.3 FL (78-98); MEAN PLATELET VOLUME 7.4 FL (7.4-10.4); MONOCYTES % (AUTO) 5.8 % (2-12); NEUTROPHILS # (AUTO) 16.3 X10'3 (1.8-7.7); NEUTROPHILS % (AUTO) 90.5 % (42-75); PLATELET COUNT 205 X10'3 (140-440); RED BLOOD COUNT 2.99 X10'6 (4.70-6.10); WHITE BLOOD COUNT 17.9 X10'3 (4.5-11.0)
[2022-11-16 03:26] LABS: ALANINE AMINOTRANSFERASE 29 U/L (12-78); ALBUMIN 3.6 G/DL (3.4-5.0); ALBUMIN/GLOBULIN RATIO 1.3 (1.1-1.5); ALKALINE PHOSPHATASE 56 IU/L (46-116); ANION GAP 6 (8-16); ASPARTATE AMINO TRANSFERASE 14 U/L (10-37); BILIRUBIN,TOTAL 0.7 MG/DL (0.1-1.0); BLOOD UREA NITROGEN 30 MG/DL (7-18); BUN/CREATININE RATIO 17.6 (5.4-32.0); CALCIUM 8.1 MG/DL (8.5-10.1); CHLORIDE 104 MMOL/L (99-107); GLUCOSE 145 MG/DL (70-104); MAGNESIUM 1.7 MG/DL (1.5-2.4); PHOSPHORUS 4.3 MG/DL (2.3-4.5); POTASSIUM 3.5 MMOL/L (3.5-5.1); PREALBUMIN 12.2 MG/DL (19-36); SODIUM 144 MMOL/L (135-145); TOTAL CARBON DIOXIDE 33.7 MMOL/L (24-32); TOTAL PROTEIN 6.3 G/DL (6.4-8.2); eGFR 41 ML/MIN
[2022-11-16] MEDS: furosemide inj 100 MG in normal saline 100ml IV soln 90 ML IV SCH ×2 (06:32→17:59)
[2022-11-16] MEDS: diltiazem CD 120mg capsule (once-daily) PO SCH (07:27)
[2022-11-16] MEDS: ferrous sulfate 325mg tablet PO SCH ×3 (07:27→22:03)
[2022-11-16] MEDS: levoFLOXACIN-Levaquin 250mg/D5 50 ML IV SCH (07:28)
[2022-11-16] MEDS: pantoprazole 40MG/NS 100ML BAG 100 ML IV SCH (07:28)
[2022-11-16] MEDS: MVI, adult No.4 with vit. K 10 ML in dextrose 5% water 500ml 500 ML IV SCH ×2 (07:30)
[2022-11-16] MEDS: metoprolol tartrate 25mg tablet PO SCH ×2 (08:00→19:03)
[2022-11-16 08:51] LABS: HEMATOCRIT 25.4 % (42.0-52.0); HEMOGLOBIN 7.6 g/dl (14.0-17.9); MEAN CORPUSCULAR HEMOGLOBIN 26.5 PG (27.0-31.0); MEAN CORPUSCULAR HGB CONC 29.8 g/dL (33.0-36.5); MEAN CORPUSCULAR VOLUME 88.9 FL (78-98); MEAN PLATELET VOLUME 7.8 FL (7.4-10.4); PLATELET COUNT 210 X10'3 (140-440); RED BLOOD COUNT 2.86 X10'6 (4.70-6.10); RED CELL DISTRIBUTION WIDTH 19.5 % (11.5-14.5); WHITE BLOOD COUNT 16.1 X10'3 (4.5-11.0)
[2022-11-16 09:33] LABS: ALANINE AMINOTRANSFERASE 21 U/L (12-78); ALBUMIN 3.3 G/DL (3.4-5.0); ALBUMIN/GLOBULIN RATIO 1.2 (1.1-1.5); ALKALINE PHOSPHATASE 55 IU/L (46-116); ASPARTATE AMINO TRANSFERASE 13 U/L (10-37); BILIRUBIN,TOTAL 0.7 MG/DL (0.1-1.0); BLOOD UREA NITROGEN 29 MG/DL (7-18); BUN/CREATININE RATIO 17.7 (5.4-32.0); CALCIUM 7.9 MG/DL (8.5-10.1); CHLORIDE 104 MMOL/L (99-107); CREATININE 1.64 MG/DL (0.60-1.10); POTASSIUM 3.4 MMOL/L (3.5-5.1); TOTAL CARBON DIOXIDE 33.6 MMOL/L (24-32); TOTAL PROTEIN 6.1 G/DL (6.4-8.2); eGFR 43 ML/MIN
[2022-11-16 10:01] LABS: ANION GAP 5 (8-16); GLUCOSE 260 MG/DL (70-104); SODIUM 143 MMOL/L (135-145)
[2022-11-16] MEDS: potassium Cl 20mEq/100mL bag 100 ML IV PRN ×2 (11:01→14:22)
[2022-11-16 12:59] LABS: ALANINE AMINOTRANSFERASE 20 U/L (12-78); ALBUMIN 3.3 G/DL (3.4-5.0); ALBUMIN/GLOBULIN RATIO 1.1 (1.1-1.5); ALKALINE PHOSPHATASE 59 IU/L (46-116); ANION GAP 5 (8-16); ASPARTATE AMINO TRANSFERASE 15 U/L (10-37); BILIRUBIN,TOTAL 0.8 MG/DL (0.1-1.0); BLOOD UREA NITROGEN 29 MG/DL (7-18); BUN/CREATININE RATIO 17.1 (5.4-32.0); CALCIUM 7.8 MG/DL (8.5-10.1); CHLORIDE 102 MMOL/L (99-107); GLUCOSE 195 MG/DL (70-104); POTASSIUM 3.1 MMOL/L (3.5-5.1); SODIUM 144 MMOL/L (135-145); TOTAL CARBON DIOXIDE 36.6 MMOL/L (24-32); TOTAL PROTEIN 6.2 G/DL (6.4-8.2); eGFR 41 ML/MIN
[2022-11-16 13:01] LABS: HEMATOCRIT 26.3 % (42.0-52.0); HEMOGLOBIN 7.8 g/dl (14.0-17.9); MEAN CORPUSCULAR HGB CONC 29.6 g/dL (33.0-36.5); MEAN CORPUSCULAR VOLUME 87.9 FL (78-98); MEAN PLATELET VOLUME 7.7 FL (7.4-10.4); PLATELET COUNT 225 X10'3 (140-440); RED BLOOD COUNT 2.99 X10'6 (4.70-6.10); RED CELL DISTRIBUTION WIDTH 19.5 % (11.5-14.5); WHITE BLOOD COUNT 15.5 X10'3 (4.5-11.0)
--- NOTE | 2022-11-16 15:17 | NUR ---
TF consult: Pt continues on BiPAP with an NGT in place with minimal output per RN. Per RN surgeon okaydb beginning TF at a low rate and advancing as tolerated. D/w RN recommendation to wean TPN as TF advances. Per RN at [facility] pt with bowel sounds and 250 mL stool output from ileostomy this morning. See TF recs below. Will continue to follow closely. Recommendations: 1) Continuous TF via NGT using Vital AF with 80 mL/hr goal rate to provide 1920 mL total volume/day, 2304 kcal, 144 g protein, and 1557 mL water 2) Additional water flush per physician in view of diuresing; monitor serum Na 3) Continuous TPN using 2:1 Clinimix-E 5/20 with 100 mL/hr goal rate and additional 100 mL 20% ILE to run at 8.33 mL/hr for 12 hours daily. To provide 2400 mL total volume/day, 120 g AA, 480 g dext (3.33 mg/kg/min GIR), and 2312 kcal; WEAN TF INCREASES 4) Monitor for a scaled wt and adjust recs as appropriate 5) Prealbumin and TG q Saturday/ 6) Daily scaled weights 7) Advance to low fiber diet as medically indicated given new ileostomy; continue NGTF until pt able to consistently tolerate adequate PO intake 8) MVI supplementation per physician discretion post-op 9) Bowel care per rx 10) Ileostomy nutrition therapy education once appropriate Addendum: 11/16/22 at [address] Amended: Links added.
[2022-11-16] MEDS: insulin regular, human U-100 3ml vial - multi-dose SQ SCH (15:58)
[2022-11-16] MEDS: fat emulsion 20% inj. 100 ML IV SCH (17:58)
[2022-11-16] MEDS: ZINC/COPPER/MANGANESE/SELENIUM 0.5 ML, chromic chloride inj. 5 MCG in AA 5%/CALCIUM/LYT... IV SCH (18:30)
[2022-11-16] MEDS: amiodarone 450 MG in Dext 5% 250ml IV soln IV SCH ×2 (18:30→22:41)
[2022-11-16] MEDS: insulin glargine (Lantus) pen - multi-dose SQ SCH (22:18)
[2022-11-16 23:42] LABS: ALANINE AMINOTRANSFERASE 17 U/L (12-78); ALBUMIN 3.1 G/DL (3.4-5.0); ALBUMIN/GLOBULIN RATIO 1.1 (1.1-1.5); ALKALINE PHOSPHATASE 55 IU/L (46-116); ANION GAP 6 (8-16); ASPARTATE AMINO TRANSFERASE 12 U/L (10-37); BILIRUBIN,TOTAL 0.7 MG/DL (0.1-1.0); BLOOD UREA NITROGEN 28 MG/DL (7-18); BUN/CREATININE RATIO 19.2 (5.4-32.0); CHLORIDE 104 MMOL/L (99-107); CREATININE 1.46 MG/DL (0.60-1.10); GLUCOSE 152 MG/DL (70-104); SODIUM 145 MMOL/L (135-145); TOTAL CARBON DIOXIDE 35.5 MMOL/L (24-32); TOTAL PROTEIN 5.8 G/DL (6.4-8.2); eGFR 49 ML/MIN
[2022-11-16 23:47] LABS: POTASSIUM 2.8 MMOL/L (3.5-5.1)
[2022-11-17] VITALS (24 sets, daily range): BP systolic 90–122; BP diastolic 57–89
[2022-11-17] MEDS: potassium Cl 20mEq/100mL bag 100 ML IV PRN ×10 (00:08→22:39)
[2022-11-17] MEDS: ZINC/COPPER/MANGANESE/SELENIUM 0.5 ML, chromic chloride inj. 5 MCG in AA 5%/CALCIUM/LYT... IV SCH (00:14)
[2022-11-17] MEDS: metroNIDAZOLE-Flagyl 500mg/NS 100 ML IV SCH ×3 (00:15→16:49)
[2022-11-17] MEDS: mineral oil/petrolatum ophthal oint EACHEYE SCH ×4 (01:17→20:00)
[2022-11-17] MEDS: insulin regular, human U-100 3ml vial - multi-dose SQ SCH ×3 (01:37→15:00)
[2022-11-17] MEDS: furosemide inj 100 MG in normal saline 100ml IV soln 90 ML IV SCH ×3 (02:30→21:34)
[2022-11-17] MEDS: amiodarone 450 MG in Dext 5% 250ml IV soln IV SCH ×2 (05:10→11:47)
[2022-11-17 05:50] LABS: BASOPHILS # (AUTO) 0.1 X10'3 (0-0.2); BASOPHILS % (AUTO) 0.6 % (0-1); EOSINOPHILS # (AUTO) 0.2 X10'3 (0-0.9); EOSINOPHILS % (AUTO) 1.5 % (0-6); HEMATOCRIT 24.5 % (42.0-52.0); HEMOGLOBIN 7.6 g/dl (14.0-17.9); LYMPHOCYTES # (AUTO) 0.6 X10'3 (1.1-4.8); LYMPHOCYTES % (AUTO) 4.9 % (21-51); MEAN CORPUSCULAR HGB CONC 30.9 g/dL (33.0-36.5); MEAN CORPUSCULAR VOLUME 87.2 FL (78-98); MEAN PLATELET VOLUME 7.3 FL (7.4-10.4); MONOCYTES # (AUTO) 0.9 X10'3 (0-0.9); MONOCYTES % (AUTO) 6.9 % (2-12); NEUTROPHILS # (AUTO) 11.4 X10'3 (1.8-7.7); NEUTROPHILS % (AUTO) 86.1 % (42-75); PLATELET COUNT 217 X10'3 (140-440); RED BLOOD COUNT 2.81 X10'6 (4.70-6.10); RED CELL DISTRIBUTION WIDTH 19.9 % (11.5-14.5); WHITE BLOOD COUNT 13.2 X10'3 (4.5-11.0)
[2022-11-17 06:07] LABS: ALANINE AMINOTRANSFERASE 19 U/L (12-78); ALKALINE PHOSPHATASE 55 IU/L (46-116); ANION GAP 3 (8-16); ASPARTATE AMINO TRANSFERASE 13 U/L (10-37); BILIRUBIN,TOTAL 0.8 MG/DL (0.1-1.0); BLOOD UREA NITROGEN 30 MG/DL (7-18); BUN/CREATININE RATIO 20.4 (5.4-32.0); CALCIUM 8.1 MG/DL (8.5-10.1); CHLORIDE 105 MMOL/L (99-107); CREATININE 1.47 MG/DL (0.60-1.10); GLUCOSE 122 MG/DL (70-104); MAGNESIUM 1.5 MG/DL (1.5-2.4); PHOSPHORUS 2.5 MG/DL (2.3-4.5); POTASSIUM 3.3 MMOL/L (3.5-5.1); SODIUM 146 MMOL/L (135-145); TOTAL CARBON DIOXIDE 38.1 MMOL/L (24-32); TOTAL PROTEIN 5.9 G/DL (6.4-8.2); eGFR 49 ML/MIN
[2022-11-17 06:24] LABS: ANISOCYTOSIS 2+; PLATELET ESTIMATE NORMAL
[2022-11-17 06:25] LABS: ELLIPTOCYTES FEW; HYPOCHROMASIA 1+; POIKILOCYTOSIS FEW; POLYCHROMASIA 1+; STOMATOCYTES 1+
[2022-11-17] MEDS: levoFLOXACIN-Levaquin 250mg/D5 50 ML IV SCH (07:55)
[2022-11-17] MEDS: pantoprazole 40MG/NS 100ML BAG 100 ML IV SCH (07:56)
[2022-11-17] MEDS: diltiazem CD 120mg capsule (once-daily) PO SCH (07:57)
[2022-11-17] MEDS: ferrous sulfate 325mg tablet PO SCH ×3 (07:57→21:32)
[2022-11-17] MEDS: metoprolol tartrate 25mg tablet PO SCH ×2 (07:58→20:00)
[2022-11-17 08:25] LABS: ABG BASE EXCESS 5.6 mmol/L (-2.0-2.0); ABG HCO3 31.6 mmol/L (22.0-26.0); ABG OXYGEN SATURATION 96.7 % (94-97); ABG PCO2 (T) 53.4 mmHg (35.0-48.0); ABG PO2 (T) 94.4 mmHg (75.0-100.0); ALLEN'S TEST POSITIVE; FMetHb 0.5 % (0.0-1.5); FO2Hb 96.2 % (94-97); PATIENT TEMPERATURE 36.2; TOTAL HEMOGLOBIN 8.5 G/dl (14.0-17.9)
[2022-11-17] MEDS: acetaminophen 325mg tablet PO PRN (09:54)
[2022-11-17] MEDS: NORepinephrine inj. 32 MG in normal saline 250ml IV soln 218 ML IV SCH (10:30)
[2022-11-17] MEDS: HYDROcodone/acetaminophen 5mg/325mg tablet PO PRN ×2 (12:26→23:06)
[2022-11-17] MEDS ORDERED: ondansetron 4mg rapidly disintigrating tab PO PRN (15:50)
[2022-11-17 17:34] LABS: ANION GAP 2 (8-16); BLOOD UREA NITROGEN 34 MG/DL (7-18); BUN/CREATININE RATIO 22.8 (5.4-32.0); CALCIUM 7.7 MG/DL (8.5-10.1); CHLORIDE 103 MMOL/L (99-107); CREATININE 1.49 MG/DL (0.60-1.10); GLUCOSE 94 MG/DL (70-104); MAGNESIUM 1.5 MG/DL (1.5-2.4); SODIUM 145 MMOL/L (135-145); TOTAL CARBON DIOXIDE 39.7 MMOL/L (24-32); eGFR 48 ML/MIN
[2022-11-17] MEDS: insulin glargine (Lantus) pen - multi-dose SQ SCH (21:00)
[2022-11-17 23:12] LABS: ALBUMIN 3.1 G/DL (3.4-5.0); ANION GAP 2 (8-16); BLOOD UREA NITROGEN 34 MG/DL (7-18); BUN/CREATININE RATIO 22.5 (5.4-32.0); CALCIUM 7.8 MG/DL (8.5-10.1); CHLORIDE 102 MMOL/L (99-107); CREATININE 1.51 MG/DL (0.60-1.10); GLUCOSE 119 MG/DL (70-104); MAGNESIUM 1.4 MG/DL (1.5-2.4); POTASSIUM 3.3 MMOL/L (3.5-5.1); SODIUM 143 MMOL/L (135-145); TOTAL CARBON DIOXIDE 39.3 MMOL/L (24-32); eGFR 47 ML/MIN
[2022-11-18] VITALS (24 sets, daily range): BP systolic 92–122; BP diastolic 57–82
[2022-11-18] MEDS: metroNIDAZOLE-Flagyl 500mg/NS 100 ML IV SCH ×4 (00:04→23:51)
[2022-11-18] MEDS: potassium Cl 20mEq/100mL bag 100 ML IV PRN ×6 (00:05→17:52)
[2022-11-18] MEDS: mineral oil/petrolatum ophthal oint EACHEYE SCH ×3 (02:00→14:00)
[2022-11-18] MEDS: insulin regular, human U-100 3ml vial - multi-dose SQ SCH ×4 (03:25→21:57)
[2022-11-18 03:54] LABS: BASOPHILS # (AUTO) 0.1 X10'3 (0-0.2); BASOPHILS % (AUTO) 0.6 % (0-1); EOSINOPHILS # (AUTO) 0.2 X10'3 (0-0.9); EOSINOPHILS % (AUTO) 1.5 % (0-6); HEMATOCRIT 26.6 % (42.0-52.0); HEMOGLOBIN 7.9 g/dl (14.0-17.9); LYMPHOCYTES # (AUTO) 0.9 X10'3 (1.1-4.8); LYMPHOCYTES % (AUTO) 6.7 % (21-51); MEAN CORPUSCULAR HEMOGLOBIN 26.3 PG (27.0-31.0); MEAN CORPUSCULAR HGB CONC 29.6 g/dL (33.0-36.5); MEAN CORPUSCULAR VOLUME 88.9 FL (78-98); MEAN PLATELET VOLUME 7.5 FL (7.4-10.4); MONOCYTES # (AUTO) 1.1 X10'3 (0-0.9); MONOCYTES % (AUTO) 8.4 % (2-12); NEUTROPHILS # (AUTO) 10.5 X10'3 (1.8-7.7); NEUTROPHILS % (AUTO) 82.8 % (42-75); PLATELET COUNT 241 X10'3 (140-440); RED BLOOD COUNT 2.99 X10'6 (4.70-6.10); RED CELL DISTRIBUTION WIDTH 20.3 % (11.5-14.5); WHITE BLOOD COUNT 12.8 X10'3 (4.5-11.0)
[2022-11-18] MEDS: amiodarone 450 MG in Dext 5% 250ml IV soln IV SCH ×3 (04:00→17:50)
[2022-11-18] MEDS: furosemide inj 100 MG in normal saline 100ml IV soln 90 ML IV SCH ×3 (04:00→12:42)
[2022-11-18 04:06] LABS: ALANINE AMINOTRANSFERASE 14 U/L (12-78); ALKALINE PHOSPHATASE 67 IU/L (46-116); ANION GAP 1 (8-16); ASPARTATE AMINO TRANSFERASE 16 U/L (10-37); BILIRUBIN,TOTAL 0.9 MG/DL (0.1-1.0); BLOOD UREA NITROGEN 35 MG/DL (7-18); BUN/CREATININE RATIO 23.2 (5.4-32.0); CALCIUM 7.6 MG/DL (8.5-10.1); CHLORIDE 103 MMOL/L (99-107); CREATININE 1.51 MG/DL (0.60-1.10); GLUCOSE 135 MG/DL (70-104); MAGNESIUM 1.4 MG/DL (1.5-2.4); POTASSIUM 3.2 MMOL/L (3.5-5.1); SODIUM 144 MMOL/L (135-145); TOTAL PROTEIN 6.1 G/DL (6.4-8.2); TRIGLYCERIDES 62 MG/DL (20-135); eGFR 47 ML/MIN
[2022-11-18 04:13] LABS: TOTAL CARBON DIOXIDE 40.1 MMOL/L (24-32)
[2022-11-18 04:38] LABS: ANISOCYTOSIS 2+; PLATELET ESTIMATE NORMAL; POIKILOCYTOSIS 1+
[2022-11-18] MEDS: levoFLOXACIN-Levaquin 250mg/D5 50 ML IV SCH (07:45)
[2022-11-18] MEDS: pantoprazole 40MG/NS 100ML BAG 100 ML IV SCH (07:45)
[2022-11-18] MEDS: diltiazem CD 120mg capsule (once-daily) PO SCH (08:00)
[2022-11-18] MEDS: metoprolol tartrate 25mg tablet PO SCH ×2 (08:44→20:12)
[2022-11-18] MEDS: ferrous sulfate 325mg tablet PO SCH ×3 (08:44→21:00)
[2022-11-18] MEDS ORDERED: POTASSIUM BICARB 20meq eff tab 20 MEQ TABLET.EFF PO PRN (11:05)
[2022-11-18] MEDS ORDERED: magnesium 2GM in 50ml NS 50 ML IV PRN (11:05)
[2022-11-18] MEDS ORDERED: magnesium 4gm in 100ml NS 100 ML IV PRN (11:05)
[2022-11-18 11:42] LABS: ALBUMIN 3.2 G/DL (3.4-5.0); ANION GAP 1 (8-16); BLOOD UREA NITROGEN 37 MG/DL (7-18); BUN/CREATININE RATIO 24.3 (5.4-32.0); CALCIUM 7.7 MG/DL (8.5-10.1); CHLORIDE 102 MMOL/L (99-107); CREATININE 1.52 MG/DL (0.60-1.10); GLUCOSE 151 MG/DL (70-104); MAGNESIUM 1.4 MG/DL (1.5-2.4); POTASSIUM 3.3 MMOL/L (3.5-5.1); SODIUM 144 MMOL/L (135-145); eGFR 47 ML/MIN
[2022-11-18 12:26] LABS: ABG BASE EXCESS 11.2 mmol/L (-2.0-2.0); ABG HCO3 38.5 mmol/L (22.0-26.0); ABG OXYGEN SATURATION 95.1 % (94-97); ABG PCO2 (T) 68.7 mmHg (35.0-48.0); ABG PO2 (T) 80.8 mmHg (75.0-100.0); ALLEN'S TEST POSITIVE; FCOHb 0.4 % (0.0-3.9); FLOW 8 L/min; FMetHb 0.4 % (0.0-1.5); FO2Hb 94.3 % (94-97); PATIENT TEMPERATURE 37.1; TOTAL HEMOGLOBIN 9.7 G/dl (14.0-17.9)
--- NOTE | 2022-11-18 12:30 | NUR ---
Dr. Robles called regarding ABG results, no answer. Will try again to call.
[2022-11-18] MEDS: POTASSIUM BICARB 20meq eff tab 20 MEQ TABLET.EFF PO SCH ×2 (14:09→20:12)
[2022-11-18 17:42] LABS: ALBUMIN 3.1 G/DL (3.4-5.0); BLOOD UREA NITROGEN 38 MG/DL (7-18); BUN/CREATININE RATIO 25.5 (5.4-32.0); CALCIUM 7.8 MG/DL (8.5-10.1); CHLORIDE 101 MMOL/L (99-107); CREATININE 1.49 MG/DL (0.60-1.10); GLUCOSE 117 MG/DL (70-104); MAGNESIUM 2.5 MG/DL (1.5-2.4); POTASSIUM 3.4 MMOL/L (3.5-5.1); SODIUM 145 MMOL/L (135-145); eGFR 48 ML/MIN
[2022-11-18 17:57] LABS: ANION GAP -1 (8-16)
[2022-11-18 17:58] LABS: TOTAL CARBON DIOXIDE 45.4 MMOL/L (24-32)
--- NOTE | 2022-11-18 18:20 | NUR ---
Attempted to call Dr. Robles regarding high CO2 of 45.4. No answer.
--- NOTE | 2022-11-18 18:21 | NUR ---
Problems reprioritized. Patient report given, questions answered & plan of care reviewed with Zee KRISHNAMURTHY.
[2022-11-18] MEDS: insulin glargine (Lantus) pen - multi-dose SQ SCH (22:00)
[2022-11-18 23:45] LABS: BASOPHILS # (AUTO) 0.1 X10'3 (0-0.2); BASOPHILS % (AUTO) 0.8 % (0-1); EOSINOPHILS # (AUTO) 0.2 X10'3 (0-0.9); EOSINOPHILS % (AUTO) 1.4 % (0-6); HEMATOCRIT 29.2 % (42.0-52.0); HEMOGLOBIN 8.8 g/dl (14.0-17.9); LYMPHOCYTES % (AUTO) 7.5 % (21-51); MEAN CORPUSCULAR HEMOGLOBIN 26.7 PG (27.0-31.0); MEAN CORPUSCULAR HGB CONC 30.3 g/dL (33.0-36.5); MEAN CORPUSCULAR VOLUME 88.3 FL (78-98); MEAN PLATELET VOLUME 7.3 FL (7.4-10.4); MONOCYTES # (AUTO) 1.1 X10'3 (0-0.9); NEUTROPHILS # (AUTO) 10.9 X10'3 (1.8-7.7); NEUTROPHILS % (AUTO) 82.3 % (42-75); PLATELET COUNT 286 X10'3 (140-440); WHITE BLOOD COUNT 13.3 X10'3 (4.5-11.0)
[2022-11-18 23:50] LABS: ALBUMIN 3.1 G/DL (3.4-5.0); ANION GAP 2 (8-16); BLOOD UREA NITROGEN 40 MG/DL (7-18); BUN/CREATININE RATIO 26.1 (5.4-32.0); CALCIUM 7.8 MG/DL (8.5-10.1); CHLORIDE 100 MMOL/L (99-107); CREATININE 1.53 MG/DL (0.60-1.10); GLUCOSE 149 MG/DL (70-104); MAGNESIUM 2.1 MG/DL (1.5-2.4); POTASSIUM 3.3 MMOL/L (3.5-5.1); SODIUM 145 MMOL/L (135-145); eGFR 47 ML/MIN
[2022-11-19] VITALS (20 sets, daily range): BP systolic 93–125; BP diastolic 57–80
[2022-11-19 00:01] LABS: TOTAL CARBON DIOXIDE 43.3 MMOL/L (24-32)
[2022-11-19 00:29] LABS: ANISOCYTOSIS 2+; HYPOCHROMASIA 1+; PLATELET ESTIMATE NORMAL; POIKILOCYTOSIS 1+
[2022-11-19] MEDS: potassium Cl 20mEq/100mL bag 100 ML IV PRN ×2 (00:49→02:07)
[2022-11-19] MEDS: HYDROcodone/acetaminophen 5mg/325mg tablet PO PRN (02:07)
[2022-11-19] MEDS: POTASSIUM BICARB 20meq eff tab 20 MEQ TABLET.EFF PO SCH ×2 (02:07→09:56)
[2022-11-19] MEDS: insulin regular, human U-100 3ml vial - multi-dose SQ SCH (02:18)
[2022-11-19 05:42] LABS: ALBUMIN 3.2 G/DL (3.4-5.0); BLOOD UREA NITROGEN 41 MG/DL (7-18); BUN/CREATININE RATIO 26.8 (5.4-32.0); CALCIUM 7.9 MG/DL (8.5-10.1); CHLORIDE 101 MMOL/L (99-107); CREATININE 1.53 MG/DL (0.60-1.10); GLUCOSE 125 MG/DL (70-104); MAGNESIUM 2.1 MG/DL (1.5-2.4); POTASSIUM 4.1 MMOL/L (3.5-5.1); PREALBUMIN 15.5 MG/DL (19-36); SODIUM 146 MMOL/L (135-145); eGFR 47 ML/MIN
[2022-11-19 05:58] LABS: ANION GAP -5 (8-16)
[2022-11-19 06:00] LABS: TOTAL CARBON DIOXIDE 49.5 MMOL/L (24-32)
[2022-11-19] MEDS: pantoprazole 40MG/NS 100ML BAG 100 ML IV SCH (08:00)
[2022-11-19] MEDS ORDERED: furosemide 40mg/4ml inj IV SCH (08:50)
[2022-11-19] MEDS: diltiazem CD 120mg capsule (once-daily) PO SCH (09:56)
[2022-11-19] MEDS: levoFLOXACIN-Levaquin 250mg/D5 50 ML IV SCH (09:57)
[2022-11-19] MEDS: metroNIDAZOLE-Flagyl 500mg/NS 100 ML IV SCH ×2 (09:57→16:31)
[2022-11-19] MEDS: ferrous sulfate 325mg tablet PO SCH ×3 (09:58→21:12)
[2022-11-19] MEDS: metolazone 2.5mg tablet PO SCH ×2 (10:43→21:11)
[2022-11-19] MEDS: amiodarone 200mg tablet PO SCH ×2 (10:47→21:11)
[2022-11-19] MEDS ORDERED: potassium Cl 20 mEq SR tablet PO SCH (10:57)
--- NOTE | 2022-11-19 11:35 | NUR ---
0730- Speech therapy here, cleared for puree with thin liquids. Will reassess ability in morning. 0900- Dr Robles rounds, stop lasix gtt and start 40mg lasix q6 and metolazone 5 mg BID, stop amio gtt and start 400mg amio PO BID, start heparin 5000 units q 12, stop metoprolol. Ok for transfer to surgical with tele, PICC or midline OK, then DC CVL.
--- NOTE | 2022-11-19 12:02 | NUR ---
F/u 11/20: Pt TPN weaned w/ EN advancement and pt tolerating NGTF at goal GRV WNL however pt NG was pulled when advanced to pureed/thin diet this AM per GLAZIER ARTIST recs. JOSELO d/w slip presser at [facility] that if PO acceptance is poor would benefit from EN nutrition support restart given previously meeting needs for wound healing but now will have to wait for PO acceptance to further evaluate nutrition status. Recommendations: 1) Continue pureed/thin diet per GLAZIER ARTIST recs; advance to low fiber diet as medically indicated given new ileostomy; encourage PO 2) monitor PO trends for ONS needs; consider Ulysses vs Ensures pending PO hx 3) If TF to restart via NGT; Vital AF with 80 mL/hr goal 4) Daily scaled weights 5) MVI supplementation per physician discretion post-op 6) Bowel care per rx 7) Ileostomy nutrition therapy education once appropriate Addendum: 11/19/22 at [address] Amended: Links added.
[2022-11-19] MEDS: furosemide 40mg tablet PO SCH ×2 (14:20→21:11)
[2022-11-19] MEDS: potassium Cl 20 mEq SR tablet PO SCH ×2 (14:20→21:11)
[2022-11-19] MEDS: heparin, porcine 5000 units/ml vial SQ SCH (16:32)
--- NOTE | 2022-11-19 18:39 | NUR ---
Patient in room CICU 2013. I have received report from Betzy KRISHNAMURTHY and had the opportunity to ask questions and assume patient care.
[2022-11-19] MEDS: insulin glargine (Lantus) pen - multi-dose SQ SCH (21:00)
[2022-11-20] VITALS (18 sets, daily range): BP systolic 89–117; BP diastolic 47–81
[2022-11-20] MEDS: heparin, porcine 5000 units/ml vial SQ SCH ×3 (00:14→17:12)
[2022-11-20] MEDS: metroNIDAZOLE-Flagyl 500mg/NS 100 ML IV SCH ×3 (00:14→17:06)
[2022-11-20] MEDS: potassium Cl 20 mEq SR tablet PO SCH ×4 (02:08→20:02)
[2022-11-20] MEDS: furosemide 40mg tablet PO SCH ×4 (02:08→20:03)
[2022-11-20 03:09] LABS: BASOPHILS # (AUTO) 0.2 X10'3 (0-0.2); BASOPHILS % (AUTO) 1.3 % (0-1); EOSINOPHILS # (AUTO) 0.2 X10'3 (0-0.9); EOSINOPHILS % (AUTO) 1.8 % (0-6); HEMATOCRIT 29.8 % (42.0-52.0); HEMOGLOBIN 9.1 g/dl (14.0-17.9); LYMPHOCYTES # (AUTO) 1.1 X10'3 (1.1-4.8); LYMPHOCYTES % (AUTO) 8.6 % (21-51); MEAN CORPUSCULAR HGB CONC 30.5 g/dL (33.0-36.5); MEAN CORPUSCULAR VOLUME 88.6 FL (78-98); MEAN PLATELET VOLUME 7.3 FL (7.4-10.4); MONOCYTES % (AUTO) 7.9 % (2-12); NEUTROPHILS # (AUTO) 10.7 X10'3 (1.8-7.7); NEUTROPHILS % (AUTO) 80.4 % (42-75); PLATELET COUNT 293 X10'3 (140-440); RED BLOOD COUNT 3.36 X10'6 (4.70-6.10); RED CELL DISTRIBUTION WIDTH 20.6 % (11.5-14.5); WHITE BLOOD COUNT 13.3 X10'3 (4.5-11.0)
[2022-11-20 03:19] LABS: ALBUMIN 3.2 G/DL (3.4-5.0); BLOOD UREA NITROGEN 39 MG/DL (7-18); BUN/CREATININE RATIO 26.9 (5.4-32.0); CALCIUM 8.8 MG/DL (8.5-10.1); CHLORIDE 95 MMOL/L (99-107); CREATININE 1.45 MG/DL (0.60-1.10); GLUCOSE 113 MG/DL (70-104); MAGNESIUM 1.8 MG/DL (1.5-2.4); PHOSPHORUS 2.3 MG/DL (2.3-4.5); POTASSIUM 3.6 MMOL/L (3.5-5.1); SODIUM 142 MMOL/L (135-145); eGFR 50 ML/MIN
[2022-11-20 03:25] LABS: ANION GAP -1 (8-16)
[2022-11-20 03:26] LABS: TOTAL CARBON DIOXIDE 47.7 MMOL/L (24-32)
[2022-11-20 03:29] LABS: ANISOCYTOSIS 3+; PLATELET ESTIMATE NORMAL
[2022-11-20 03:31] LABS: POIKILOCYTOSIS 1+; POLYCHROMASIA FEW; STOMATOCYTES 1+; TEAR DROP CELLS FEW
--- NOTE | 2022-11-20 06:19 | NUR ---
Problems reprioritized. Patient report given, questions answered & plan of care reviewed with Heydi Dye RN.
[2022-11-20] MEDS: levoFLOXACIN-Levaquin 250mg/D5 50 ML IV SCH (08:48)
[2022-11-20] MEDS: pantoprazole 40MG/NS 100ML BAG 100 ML IV SCH (08:50)
[2022-11-20] MEDS: diltiazem CD 120mg capsule (once-daily) PO SCH (08:50)
[2022-11-20] MEDS: amiodarone 200mg tablet PO SCH ×2 (08:51→20:02)
[2022-11-20] MEDS: ferrous sulfate 325mg tablet PO SCH ×3 (08:51→21:00)
[2022-11-20] MEDS: metolazone 2.5mg tablet PO SCH ×2 (08:51→20:03)
--- NOTE | 2022-11-20 11:38 | NUR ---
Reassessment: Pt s/p f/u BSS this morning with ST recs texture advancement to SB6 with thin liquids. Pending first meal since texture upgrade. Patient's tray ticket visible during CCR, pt with 100% PO intake of starch and coffee only for breakfast this morning. Recommend adding low fiber to diet order in view of ileostomy. LBM 11/19 documented with 1550 mL stool output per I&O. Will continue to follow closely. Recommendations: 1) Continue SB6 diet with thin liquids per ST recs; add low fiber diet given new ileostomy; encourage PO intake 2) Monitor PO trends for ONS needs; consider Ulysses vs Ensures pending PO intake 3) If TF to restart via NGT; Vital AF with 80 mL/hr goal 4) Daily scaled weights 5) MVI supplementation per physician discretion post-op 6) Bowel care per rx 7) Ileostomy nutrition therapy education once appropriate Addendum: 11/20/22 at [address] Amended: Links added.
--- NOTE | 2022-11-20 16:30 | NUR ---
Pt. transferred to room 3021 via hospital bed, all belongings with patient (charted under "transfer unit to unit" intervention), Patient on 12L high flow NC, attached to build and release manager, YESSY Mcclain in room to receive patient. Report was called to Johny prior to transfer.
[2022-11-20] MEDS: insulin glargine (Lantus) pen - multi-dose SQ SCH (21:00)
[2022-11-21] MEDS: heparin, porcine 5000 units/ml vial SQ SCH ×4 (00:23→23:32)
[2022-11-21] MEDS: metroNIDAZOLE-Flagyl 500mg/NS 100 ML IV SCH ×4 (00:24→23:30)
[2022-11-21] MEDS: potassium Cl 20 mEq SR tablet PO SCH ×4 (03:02→20:41)
[2022-11-21] MEDS: furosemide 40mg tablet PO SCH ×4 (03:03→20:41)
[2022-11-21 06:07] VITALS: BP 100/60
[2022-11-21 06:34] LABS: BASOPHILS # (AUTO) 0.2 X10'3 (0-0.2); BASOPHILS % (AUTO) 1.7 % (0-1); EOSINOPHILS # (AUTO) 0.2 X10'3 (0-0.9); EOSINOPHILS % (AUTO) 1.4 % (0-6); HEMATOCRIT 30.2 % (42.0-52.0); HEMOGLOBIN 9.4 g/dl (14.0-17.9); LYMPHOCYTES % (AUTO) 7.7 % (21-51); MEAN CORPUSCULAR HEMOGLOBIN 27.5 PG (27.0-31.0); MEAN CORPUSCULAR HGB CONC 31.3 g/dL (33.0-36.5); MEAN PLATELET VOLUME 7.4 FL (7.4-10.4); MONOCYTES # (AUTO) 0.9 X10'3 (0-0.9); MONOCYTES % (AUTO) 7.1 % (2-12); NEUTROPHILS # (AUTO) 10.2 X10'3 (1.8-7.7); NEUTROPHILS % (AUTO) 82.1 % (42-75); PLATELET COUNT 322 X10'3 (140-440); RED BLOOD COUNT 3.43 X10'6 (4.70-6.10); RED CELL DISTRIBUTION WIDTH 19.4 % (11.5-14.5); WHITE BLOOD COUNT 12.5 X10'3 (4.5-11.0)
[2022-11-21 06:45] LABS: ALBUMIN 3.2 G/DL (3.4-5.0); BLOOD UREA NITROGEN 36 MG/DL (7-18); BUN/CREATININE RATIO 25.4 (5.4-32.0); CHLORIDE 93 MMOL/L (99-107); CREATININE 1.42 MG/DL (0.60-1.10); GLUCOSE 98 MG/DL (70-104); MAGNESIUM 1.9 MG/DL (1.5-2.4); PHOSPHORUS 3.4 MG/DL (2.3-4.5); SODIUM 140 MMOL/L (135-145); eGFR 51 ML/MIN
[2022-11-21 06:51] LABS: ANION GAP -1 (8-16); POTASSIUM 3.3 MMOL/L (3.5-5.1)
[2022-11-21 07:00] VITALS: BP 95/60
[2022-11-21 09:02] LABS: ANISOCYTOSIS 2+; PLATELET ESTIMATE NORMAL
[2022-11-21 09:03] LABS: HYPOCHROMASIA 1+; POLYCHROMASIA 1+
[2022-11-21] MEDS: pantoprazole 40MG/NS 100ML BAG 100 ML IV SCH (09:55)
[2022-11-21] MEDS: levoFLOXACIN-Levaquin 250mg/D5 50 ML IV SCH (09:55)
[2022-11-21] MEDS: diltiazem CD 120mg capsule (once-daily) PO SCH (09:55)
[2022-11-21] MEDS: amiodarone 200mg tablet PO SCH ×2 (09:55→20:41)
[2022-11-21] MEDS: ferrous sulfate 325mg tablet PO SCH ×3 (09:56→20:42)
[2022-11-21] MEDS: metolazone 2.5mg tablet PO SCH ×2 (09:57→20:41)
[2022-11-21 11:00] VITALS: BP 106/59
[2022-11-21 15:09] VITALS: BP 98/53
[2022-11-21 18:00] VITALS: BP 92/59
[2022-11-21] MEDS: insulin glargine (Lantus) pen - multi-dose SQ SCH (20:47)
[2022-11-21 23:00] VITALS: BP 91/56
[2022-11-22] MEDS: potassium Cl 20 mEq SR tablet PO SCH ×4 (01:10→19:46)
[2022-11-22] MEDS: furosemide 40mg tablet PO SCH ×4 (01:10→19:46)
[2022-11-22 06:51] LABS: BASOPHILS # (AUTO) 0.2 X10'3 (0-0.2); EOSINOPHILS # (AUTO) 0.2 X10'3 (0-0.9); HEMOGLOBIN 9.6 g/dl (14.0-17.9); MEAN CORPUSCULAR HEMOGLOBIN 27.2 PG (27.0-31.0); MEAN CORPUSCULAR HGB CONC 30.2 g/dL (33.0-36.5); MEAN PLATELET VOLUME 7.5 FL (7.4-10.4); MONOCYTES # (AUTO) 0.9 X10'3 (0-0.9)
[2022-11-22 06:53] LABS: BASOPHILS % (AUTO) 1.2 % (0-1); EOSINOPHILS % (AUTO) 1.6 % (0-6); HEMATOCRIT 31.7 % (42.0-52.0); LYMPHOCYTES % (AUTO) 7.7 % (21-51); MEAN CORPUSCULAR VOLUME 89.9 FL (78-98); MONOCYTES % (AUTO) 6.7 % (2-12); NEUTROPHILS # (AUTO) 11.2 X10'3 (1.8-7.7); NEUTROPHILS % (AUTO) 82.8 % (42-75); PLATELET COUNT 340 X10'3 (140-440); RED BLOOD COUNT 3.53 X10'6 (4.70-6.10); RED CELL DISTRIBUTION WIDTH 20.2 % (11.5-14.5); WHITE BLOOD COUNT 13.5 X10'3 (4.5-11.0)
[2022-11-22 07:00] VITALS: BP 101/65
[2022-11-22 07:20] LABS: ALBUMIN 3.2 G/DL (3.4-5.0); BLOOD UREA NITROGEN 35 MG/DL (7-18); BUN/CREATININE RATIO 21.9 (5.4-32.0); CALCIUM 8.6 MG/DL (8.5-10.1); CHLORIDE 91 MMOL/L (99-107); GLUCOSE 93 MG/DL (70-104); MAGNESIUM 1.9 MG/DL (1.5-2.4); SODIUM 140 MMOL/L (135-145); eGFR 44 ML/MIN
[2022-11-22 07:26] LABS: PHOSPHORUS 3.8 MG/DL (2.3-4.5); POTASSIUM 2.9 MMOL/L (3.5-5.1)
[2022-11-22 07:48] LABS: ANION GAP -1 (8-16)
[2022-11-22 07:49] LABS: TOTAL CARBON DIOXIDE 49.9 MMOL/L (24-32)
[2022-11-22] MEDS: pantoprazole 40MG/NS 100ML BAG 100 ML IV SCH (08:11)
[2022-11-22] MEDS: levoFLOXACIN-Levaquin 250mg/D5 50 ML IV SCH (08:11)
[2022-11-22] MEDS: metroNIDAZOLE-Flagyl 500mg/NS 100 ML IV SCH ×3 (08:11→22:59)
[2022-11-22] MEDS: heparin, porcine 5000 units/ml vial SQ SCH ×3 (08:12→22:59)
[2022-11-22] MEDS: amiodarone 200mg tablet PO SCH ×2 (08:12→19:45)
[2022-11-22] MEDS: ferrous sulfate 325mg tablet PO SCH ×3 (08:13→20:09)
[2022-11-22] MEDS: diltiazem CD 120mg capsule (once-daily) PO SCH (08:13)
[2022-11-22] MEDS: metolazone 2.5mg tablet PO SCH ×2 (08:23→20:09)
[2022-11-22] MEDS: POTASSIUM BICARB 20meq eff tab 20 MEQ TABLET.EFF PO PRN ×2 (08:24→14:21)
[2022-11-22 13:00] VITALS: BP 97/58
[2022-11-22] MEDS: potassium Cl 20 mEq SR tablet PO PRN ×2 (16:55→22:59)
[2022-11-22 18:00] VITALS: BP 105/57
--- NOTE | 2022-11-22 18:25 | NUR ---
Patient in room PCU 3021. I have received report from [employer] and had the opportunity to ask questions and assume patient care.
[2022-11-22] MEDS: K and/or MAG REPLACEMENT MC SCH (20:10)
[2022-11-22] MEDS: insulin glargine (Lantus) pen - multi-dose SQ SCH (21:00)
--- NOTE | 2022-11-22 21:10 | NUR ---
received report from discharge planner. patient resting, watching TV.
[2022-11-22 21:20] VITALS: BP 92/52
[2022-11-23] MEDS: HYDROcodone/acetaminophen 5mg/325mg tablet PO PRN (00:45)
[2022-11-23] MEDS: potassium Cl 20 mEq SR tablet PO SCH ×4 (02:00→20:33)
[2022-11-23] MEDS: furosemide 40mg tablet PO SCH ×4 (02:00→20:33)
[2022-11-23 02:10] VITALS: BP 89/56
[2022-11-23] MEDS ORDERED: acetaZOLAMIDE 250mg tablet PO ONE (05:15)
[2022-11-23] MEDS ORDERED: acetaZOLAMIDE IV 500mg inj IV ONE (05:25)
[2022-11-23 05:30] VITALS: BP 96/62
[2022-11-23] MEDS: potassium Cl 20 mEq SR tablet PO PRN ×3 (05:34→20:45)
--- NOTE | 2022-11-23 05:45 | NUR ---
notified dr. ferguson of patient's elevating CO2 levels. diamox x1 ordered. given with potassium. will delay labs x3 hours to see results.
[2022-11-23 07:00] VITALS: BP 92/55
[2022-11-23] MEDS: diltiazem CD 120mg capsule (once-daily) PO SCH (08:00)
[2022-11-23] MEDS: metolazone 2.5mg tablet PO SCH ×2 (08:00→20:34)
[2022-11-23] MEDS: pantoprazole 40MG/NS 100ML BAG 100 ML IV SCH (08:00)
[2022-11-23] MEDS: K and/or MAG REPLACEMENT MC SCH ×2 (08:00→20:32)
[2022-11-23 09:36] LABS: BASOPHILS # (AUTO) 0.2 X10'3 (0-0.2); BASOPHILS % (AUTO) 1.3 % (0-1); EOSINOPHILS # (AUTO) 0.2 X10'3 (0-0.9); EOSINOPHILS % (AUTO) 1.3 % (0-6); HEMATOCRIT 33.6 % (42.0-52.0); HEMOGLOBIN 10.4 g/dl (14.0-17.9); LYMPHOCYTES # (AUTO) 1.1 X10'3 (1.1-4.8); LYMPHOCYTES % (AUTO) 7.8 % (21-51); MEAN CORPUSCULAR HEMOGLOBIN 27.7 PG (27.0-31.0); MEAN CORPUSCULAR HGB CONC 30.9 g/dL (33.0-36.5); MEAN CORPUSCULAR VOLUME 89.7 FL (78-98); MEAN PLATELET VOLUME 7.5 FL (7.4-10.4); MONOCYTES # (AUTO) 0.7 X10'3 (0-0.9); MONOCYTES % (AUTO) 5.2 % (2-12); NEUTROPHILS # (AUTO) 11.6 X10'3 (1.8-7.7); NEUTROPHILS % (AUTO) 84.4 % (42-75); PLATELET COUNT 331 X10'3 (140-440); RED BLOOD COUNT 3.75 X10'6 (4.70-6.10); RED CELL DISTRIBUTION WIDTH 20.2 % (11.5-14.5); WHITE BLOOD COUNT 13.8 X10'3 (4.5-11.0)
[2022-11-23 09:46] LABS: ALBUMIN 3.2 G/DL (3.4-5.0); BLOOD UREA NITROGEN 35 MG/DL (7-18); BUN/CREATININE RATIO 22.6 (5.4-32.0); CALCIUM 9.1 MG/DL (8.5-10.1); CHLORIDE 89 MMOL/L (99-107); CREATININE 1.55 MG/DL (0.60-1.10); GLUCOSE 132 MG/DL (70-104); MAGNESIUM 1.7 MG/DL (1.5-2.4); SODIUM 137 MMOL/L (135-145); eGFR 46 ML/MIN
[2022-11-23 09:56] LABS: ANISOCYTOSIS 3+; HYPOCHROMASIA 2+; PLATELET ESTIMATE NORMAL; STOMATOCYTES 2+
[2022-11-23 09:59] LABS: ANION GAP -2 (8-16); PHOSPHORUS 2.9 MG/DL (2.3-4.5); POTASSIUM 3.1 MMOL/L (3.5-5.1)
[2022-11-23 10:03] LABS: TOTAL CARBON DIOXIDE > 50 MMOL/L (24-32)
--- NOTE | 2022-11-23 10:07 | NUR ---
"MORNING DR. HANCOCK, PT [facility], ROOM 3021, CARBON DIOXIDE >50 THANK YOU BECCA, PCU"
[2022-11-23] MEDS: ferrous sulfate 325mg tablet PO SCH ×3 (10:44→20:34)
[2022-11-23] MEDS: amiodarone 200mg tablet PO SCH ×2 (10:44→20:32)
[2022-11-23] MEDS: levoFLOXACIN-Levaquin 250mg/D5 50 ML IV SCH (10:45)
[2022-11-23] MEDS: metroNIDAZOLE-Flagyl 500mg/NS 100 ML IV SCH ×2 (10:45→17:31)
[2022-11-23] MEDS: heparin, porcine 5000 units/ml vial SQ SCH ×2 (10:45→17:20)
[2022-11-23 14:00] VITALS: BP 104/55
--- NOTE | 2022-11-23 15:39 | NUR ---
RECEIVED REPORT FROM BECCA ON PCU, WAITING FOR PT TO ARRIVE TO ASSUME CARE
--- NOTE | 2022-11-23 16:00 | NUR ---
PT ARRIVED TO FLOOR, ASSUMED CARE. PT IN BED, A&O X4 CALL LIGHT IN REACH
--- NOTE | 2022-11-23 16:00 | NUR ---
PT TRANSFERRED TO M/S. REPORT GIVEN TO YESSY ANDRES.
--- NOTE | 2022-11-23 16:18 | NUR ---
Reassessment: Pt s/p BSS with [facility] diet advancement to regular. Per EMR pt eating well, documented with 75-100% PO intake meeting estimated nutrient needs. Pt seen at bedside for written and verbal ileostomy nutrition therapy education. All questions were answered at this time. Pt reports a "so-so" appetite. Food preferences were obtained and d/w dietary, see below. Pt denies food allergies. LBM 11/22 with 2.2 L stool output per EMR. Pt provided with RD contact information and encouraged to reach out if needed. Will continue to follow. Recommendations: 1) Change to low fiber diet given new ileostomy 2) Monitor PO trends for ONS needs; consider Ulysses vs Ensures pending PO intake 3) [place] food preferences: no milk to drink, coffee, [address] [place] dressing, broccoli, cauliflower, spinach, squash; likes cold canned fruit, pasta salad 4) Weekly scaled weights 5) MVI supplementation per physician discretion post-op 6) Bowel care per rx Addendum: 11/23/22 at [address] Amended: Links added.
[2022-11-23 18:00] VITALS: BP 97/62
--- NOTE | 2022-11-23 18:30 | NUR ---
Patient in room SWETHA 352. I have received report from José Miguel KRISHNAMURTHY and had the opportunity to ask questions and assume patient care.
[2022-11-23] MEDS: insulin glargine (Lantus) pen - multi-dose SQ SCH (21:00)
[2022-11-23 22:00] VITALS: BP 99/65
[2022-11-24] MEDS: clindamycin 1% topical susp 60ml bottle TP SCH ×3 (00:26→21:10)
[2022-11-24] MEDS: metroNIDAZOLE-Flagyl 500mg/NS 100 ML IV SCH ×3 (00:38→16:20)
[2022-11-24] MEDS: heparin, porcine 5000 units/ml vial SQ SCH ×3 (00:39→16:21)
[2022-11-24] MEDS: potassium Cl 20 mEq SR tablet PO SCH ×4 (02:18→21:08)
[2022-11-24] MEDS: furosemide 40mg tablet PO SCH ×4 (02:19→18:55)
[2022-11-24] MEDS: potassium Cl 20 mEq SR tablet PO PRN (02:26)
[2022-11-24] MEDS: HYDROcodone/acetaminophen 5mg/325mg tablet PO PRN ×3 (05:32→17:45)
[2022-11-24 05:51] LABS: BASOPHILS # (AUTO) 0.2 X10'3 (0-0.2); BASOPHILS % (AUTO) 1.7 % (0-1); EOSINOPHILS # (AUTO) 0.2 X10'3 (0-0.9); EOSINOPHILS % (AUTO) 1.4 % (0-6); HEMATOCRIT 32.7 % (42.0-52.0); HEMOGLOBIN 10.1 g/dl (14.0-17.9); LYMPHOCYTES % (AUTO) 8.4 % (21-51); MEAN CORPUSCULAR VOLUME 90.2 FL (78-98); MEAN PLATELET VOLUME 7.5 FL (7.4-10.4); MONOCYTES # (AUTO) 0.7 X10'3 (0-0.9); NEUTROPHILS # (AUTO) 9.7 X10'3 (1.8-7.7); NEUTROPHILS % (AUTO) 82.5 % (42-75); PLATELET COUNT 334 X10'3 (140-440); RED BLOOD COUNT 3.63 X10'6 (4.70-6.10); RED CELL DISTRIBUTION WIDTH 19.8 % (11.5-14.5); WHITE BLOOD COUNT 11.7 X10'3 (4.5-11.0)
[2022-11-24 06:00] VITALS: BP 99/45
[2022-11-24 06:02] LABS: ALBUMIN 3.2 G/DL (3.4-5.0); ANION GAP 1 (8-16); BLOOD UREA NITROGEN 32 MG/DL (7-18); CALCIUM 8.9 MG/DL (8.5-10.1); CHLORIDE 91 MMOL/L (99-107); GLUCOSE 152 MG/DL (70-104); MAGNESIUM 1.8 MG/DL (1.5-2.4); SODIUM 136 MMOL/L (135-145); eGFR 44 ML/MIN
[2022-11-24 06:03] LABS: PHOSPHORUS 3.1 MG/DL (2.3-4.5); POTASSIUM 3.7 MMOL/L (3.5-5.1)
[2022-11-24 06:05] LABS: TOTAL CARBON DIOXIDE 44.5 MMOL/L (24-32)
--- NOTE | 2022-11-24 06:05 | NUR ---
received Critical lab co2 44.5, reported to Pt RN Addendum: 11/24/22 at 0606 by Joann De Dios RN Amended: Links added.
--- NOTE | 2022-11-24 06:30 | NUR ---
Problems reprioritized. Patient report given, questions answered & plan of care reviewed with Melissa RN.
--- NOTE | 2022-11-24 06:40 | NUR ---
Patient in room SWETHA 352. I have received report from YESSY Singleton and had the opportunity to ask questions and assume patient care.
[2022-11-24] MEDS: metolazone 2.5mg tablet PO SCH ×2 (08:00→18:55)
[2022-11-24] MEDS: diltiazem CD 120mg capsule (once-daily) PO SCH (08:00)
[2022-11-24] MEDS: K and/or MAG REPLACEMENT MC SCH ×2 (08:00→20:00)
--- NOTE | 2022-11-24 08:00 | NUR ---
Unable to weight pt due to bed no zeroed out. Will zero bed next time pt is up & then be able to weight pt tomorrow.
[2022-11-24] MEDS: pantoprazole 40MG/NS 100ML BAG 100 ML IV SCH (09:12)
[2022-11-24] MEDS: ferrous sulfate 325mg tablet PO SCH ×3 (09:43→21:08)
[2022-11-24] MEDS: amiodarone 200mg tablet PO SCH ×2 (09:44→21:08)
[2022-11-24 10:00] VITALS: BP 100/56
[2022-11-24] MEDS: levoFLOXACIN-Levaquin 250mg/D5 50 ML IV SCH (10:04)
[2022-11-24] MEDS ORDERED: furosemide 40mg tablet PO SCH (14:55)
[2022-11-24 17:30] VITALS: BP 95/61
[2022-11-24] MEDS ORDERED: diphenhydrAMINE 25mg capsule PO PRN (21:40)
[2022-11-24 22:00] VITALS: BP 96/54
[2022-11-25] MEDS: heparin, porcine 5000 units/ml vial SQ SCH ×3 (00:15→16:14)
[2022-11-25] MEDS: metroNIDAZOLE-Flagyl 500mg/NS 100 ML IV SCH ×3 (00:15→16:14)
[2022-11-25] MEDS: HYDROcodone/acetaminophen 5mg/325mg tablet PO PRN ×2 (00:16→05:09)
[2022-11-25 05:57] LABS: ALBUMIN 3.1 G/DL (3.4-5.0); ANION GAP 1 (8-16); BLOOD UREA NITROGEN 39 MG/DL (7-18); BUN/CREATININE RATIO 22.4 (5.4-32.0); CALCIUM 8.8 MG/DL (8.5-10.1); CHLORIDE 95 MMOL/L (99-107); CREATININE 1.74 MG/DL (0.60-1.10); GLUCOSE 97 MG/DL (70-104); MAGNESIUM 1.8 MG/DL (1.5-2.4); PHOSPHORUS 3.8 MG/DL (2.3-4.5); SODIUM 137 MMOL/L (135-145); eGFR 40 ML/MIN
[2022-11-25 05:59] LABS: POTASSIUM 3.8 MMOL/L (3.5-5.1)
[2022-11-25 06:00] LABS: TOTAL CARBON DIOXIDE 41.1 MMOL/L (24-32)
[2022-11-25 06:06] LABS: BASOPHILS # (AUTO) 0.2 X10'3 (0-0.2); BASOPHILS % (AUTO) 1.4 % (0-1); EOSINOPHILS # (AUTO) 0.2 X10'3 (0-0.9); EOSINOPHILS % (AUTO) 2.1 % (0-6); HEMOGLOBIN 10.2 g/dl (14.0-17.9); LYMPHOCYTES # (AUTO) 1.3 X10'3 (1.1-4.8); LYMPHOCYTES % (AUTO) 11.5 % (21-51); MEAN CORPUSCULAR HEMOGLOBIN 28.2 PG (27.0-31.0); MEAN CORPUSCULAR VOLUME 90.9 FL (78-98); MEAN PLATELET VOLUME 7.6 FL (7.4-10.4); MONOCYTES # (AUTO) 0.8 X10'3 (0-0.9); MONOCYTES % (AUTO) 6.8 % (2-12); NEUTROPHILS # (AUTO) 9.1 X10'3 (1.8-7.7); NEUTROPHILS % (AUTO) 78.2 % (42-75); PLATELET COUNT 313 X10'3 (140-440); RED BLOOD COUNT 3.63 X10'6 (4.70-6.10); RED CELL DISTRIBUTION WIDTH 20.2 % (11.5-14.5); WHITE BLOOD COUNT 11.7 X10'3 (4.5-11.0)
--- NOTE | 2022-11-25 06:20 | NUR ---
Problems reprioritized. Patient report given, questions answered & plan of care reviewed with YESSY Min.
--- NOTE | 2022-11-25 07:00 | NUR ---
Patient in room SWETHA 352. I have received report from Melissa KRISHNAMURTHY and had the opportunity to ask questions and assume patient care.
[2022-11-25 07:14] VITALS: BP 135/83
[2022-11-25] MEDS: K and/or MAG REPLACEMENT MC SCH ×2 (08:00→20:00)
[2022-11-25 08:25] LABS: ANISOCYTOSIS 3+; HYPOCHROMASIA 1+; PLATELET ESTIMATE NORMAL; TOTAL CELLS COUNTED 100
[2022-11-25 08:26] LABS: POLYCHROMASIA FEW; STOMATOCYTES 1+
[2022-11-25] MEDS: ferrous sulfate 325mg tablet PO SCH ×3 (08:51→21:25)
[2022-11-25] MEDS: diltiazem CD 120mg capsule (once-daily) PO SCH (08:51)
[2022-11-25] MEDS: amiodarone 200mg tablet PO SCH ×2 (08:51→21:24)
[2022-11-25] MEDS: furosemide 40mg tablet PO SCH ×2 (08:52→21:25)
[2022-11-25] MEDS: potassium Cl 20 mEq SR tablet PO SCH ×2 (08:52→21:25)
[2022-11-25] MEDS: metolazone 2.5mg tablet PO SCH ×2 (08:52→21:26)
[2022-11-25] MEDS: levoFLOXACIN-Levaquin 250mg/D5 50 ML IV SCH (08:53)
[2022-11-25] MEDS: clindamycin 1% topical susp 60ml bottle TP SCH ×2 (08:53→21:23)
[2022-11-25] MEDS: pantoprazole 40MG/NS 100ML BAG 100 ML IV SCH (08:53)
[2022-11-25 11:13] VITALS: BP 98/58
[2022-11-25 18:00] VITALS: BP 108/63
--- NOTE | 2022-11-25 18:22 | NUR ---
Problems reprioritized. Patient report given, questions answered & plan of care reviewed with Jenna KRISHNAMURTHY.
[2022-11-25 21:26] VITALS: BP 100/57
--- NOTE | 2022-11-25 21:30 | NUR ---
PT REFUSED WOUND CARE AT THIS TIME
[2022-11-26] MEDS: heparin, porcine 5000 units/ml vial SQ SCH ×2 (01:00→10:44)
[2022-11-26] MEDS: metroNIDAZOLE-Flagyl 500mg/NS 100 ML IV SCH ×2 (01:01→10:50)
[2022-11-26 03:29] VITALS: BP 97/52
[2022-11-26] MEDS: HYDROcodone/acetaminophen 5mg/325mg tablet PO PRN (03:29)
[2022-11-26 06:00] VITALS: BP 97/62
--- NOTE | 2022-11-26 06:54 | NUR ---
Problems reprioritized. Patient report given, questions answered & plan of care reviewed with YESSY BARROS.
[2022-11-26] MEDS: clindamycin 1% topical susp 60ml bottle TP SCH (10:44)
[2022-11-26] MEDS: pantoprazole 40MG/NS 100ML BAG 100 ML IV SCH (10:44)
[2022-11-26] MEDS: potassium Cl 20 mEq SR tablet PO SCH (10:45)
[2022-11-26] MEDS: levoFLOXACIN-Levaquin 250mg/D5 50 ML IV SCH (10:46)
[2022-11-26] MEDS: metolazone 2.5mg tablet PO SCH (10:46)
[2022-11-26 10:47] VITALS: BP 111/59
[2022-11-26] MEDS: ferrous sulfate 325mg tablet PO SCH (10:47)
[2022-11-26] MEDS: furosemide 40mg tablet PO SCH (10:48)
[2022-11-26] MEDS: amiodarone 200mg tablet PO SCH (10:49)
[2022-11-26] MEDS: diltiazem CD 120mg capsule (once-daily) PO SCH (10:49)
--- NOTE | 2022-11-26 11:19 | NUR ---
unable to draw 0300 labs from [facility], gerald dupont, will not draw blood, per this YESSY and YESSY Ortiz Will call lab for draw. Addendum: 11/26/22 at 1122 by Maria Elena High RN --> omi Hyde in lab Addendum: 11/26/22 at 1159 by Maria Elena High RN Pt refusing x2 to empty own ostomy bag. RN encouraged to be self-reliant and pt declined Addendum: 11/26/22 at 1202 by Maria Elena High RN Pt refusing skin/ wound check to scarum/perianal area Addendum: 11/26/22 at 1219 by Maria Elena High RN Submitted MRSA to lab Addendum: 11/26/22 at 1225 by Maria Elena High RN Called report to Vane Abdullahi LTVIVIANA Addendum: 11/26/22 at 1256 by Maria Elena High RN Education provided to pt Addendum: 11/26/22 at 1259 by Maria Elena High RN Pt education on wound care, perineal and uribe care education provided. Addendum: 11/26/22 at 1312 by Maria Elena High RN Pt discharged with Uribe (open wounds), PICC and hand IV intact per LTAC preference. Education reenforced per wound care, anahi/uribe care, self-ostomy care, etc.
[2022-11-26 13:00] VITALS: BP 111/59
--- NOTE | 2022-11-26 14:45 | NUR ---
Procuring pt belongings, pt self-reports pants, jacket, shoes, etc. Nothing in room. Called [facility], spoke with Suad who said she needed to look through 50bags of belongings and will call back either way. RN to follow. Went to Pharmacy to procure pt home meds. Addendum: 11/26/22 at 1510 by Maria Elena High RN Meds procured from Pharmacy and pt belongings retrieved from lost and found. Reenforced education for pt to allow dressing changes to wounds. Pt escorted by EMS.
== END 2022-11-26 15:18 | DRG 329 ==
LOC: ER 08:36 → ED HOLD 11:22 → PCU 3S 11-06 09:34 → CICU 2S 11-10 12:16 → PCU 3S 11-20 16:30 → SUR 3N 11-23 15:51
PROVIDERS: ADMIT Internal Medicine; ATTEND Internal Medicine
PROC: 0BH17EZ Insertion of Endotracheal Airway into Trachea, Via Natural or Artificial Opening (ICD-10-PCS; 2022-11-10)
PROC: 5A1945Z Respiratory Ventilation, 24-96 Consecutive Hours (ICD-10-PCS; 2022-11-10)
PROC: 0D1B0Z4 Bypass Ileum to Cutaneous, Open Approach (ICD-10-PCS; principal; 2022-11-10 10:15)
PROC: 02HV33Z Insertion of Infusion Device into Superior Vena Cava, Percutaneous Approach (ICD-10-PCS; 2022-11-11)
PROC: 30233N1 Transfusion of Nonautologous Red Blood Cells into Peripheral Vein, Percutaneous Approach (ICD-10-PCS; 2022-11-13)
PROC: 5A09357 Assistance with Respiratory Ventilation, Less than 24 Consecutive Hours, Continuous Positive Airway Pressure (ICD-10-PCS; 2022-11-15)
PROC: 5A09357 Assistance with Respiratory Ventilation, Less than 24 Consecutive Hours, Continuous Positive Airway Pressure (ICD-10-PCS; 2022-11-16)
PROC: 5A09357 Assistance with Respiratory Ventilation, Less than 24 Consecutive Hours, Continuous Positive Airway Pressure (ICD-10-PCS; 2022-11-17)
PROC: 5A0935A Assistance with Respiratory Ventilation, Less than 24 Consecutive Hours, High Flow/Velocity Cannula (ICD-10-PCS; 2022-11-17)
PROC: 5A09357 Assistance with Respiratory Ventilation, Less than 24 Consecutive Hours, Continuous Positive Airway Pressure (ICD-10-PCS; 2022-11-18)
PROC: 5A0935A Assistance with Respiratory Ventilation, Less than 24 Consecutive Hours, High Flow/Velocity Cannula (ICD-10-PCS; 2022-11-18)
PROC: 5A09357 Assistance with Respiratory Ventilation, Less than 24 Consecutive Hours, Continuous Positive Airway Pressure (ICD-10-PCS; 2022-11-19)
PROC: 5A0935A Assistance with Respiratory Ventilation, Less than 24 Consecutive Hours, High Flow/Velocity Cannula (ICD-10-PCS; 2022-11-19)
PROC: 5A09357 Assistance with Respiratory Ventilation, Less than 24 Consecutive Hours, Continuous Positive Airway Pressure (ICD-10-PCS; 2022-11-20)
PROC: 5A0935A Assistance with Respiratory Ventilation, Less than 24 Consecutive Hours, High Flow/Velocity Cannula (ICD-10-PCS; 2022-11-20)
PROC: 5A0935A Assistance with Respiratory Ventilation, Less than 24 Consecutive Hours, High Flow/Velocity Cannula (ICD-10-PCS; 2022-11-21)
DX: K46.0 Unspecified abdominal hernia with obstruction, without gangrene (principal); A41.9 Sepsis, unspecified organism; J96.21 Acute and chronic respiratory failure with hypoxia; R65.21 Severe sepsis with septic shock; I50.43 Acute on chronic combined systolic (congestive) and diastolic (congestive) heart failure; I48.11 Longstanding persistent atrial fibrillation; N17.9 Acute kidney failure, unspecified; D62 Acute posthemorrhagic anemia; I13.0 Hypertensive heart and chronic kidney disease with heart failure and stage 1 through stage 4 chronic kidney disease, or unspecified chronic kidney disease; E66.01 Morbid (severe) obesity due to excess calories; Z20.822 Contact with and (suspected) exposure to COVID-19; E87.6 Hypokalemia; N18.30 Chronic kidney disease, stage 3 unspecified; E16.2 Hypoglycemia, unspecified; K60.3 Anal fistula; N28.1 Cyst of kidney, acquired; N40.0 Benign prostatic hyperplasia without lower urinary tract symptoms; Z88.1 Allergy status to other antibiotic agents; Z88.5 Allergy status to narcotic agent; Z88.0 Allergy status to penicillin; Z88.7 Allergy status to serum and vaccine; Z79.899 Other long term (current) drug therapy; Z87.442 Personal history of urinary calculi; Z91.14 Patient's other noncompliance with medication regimen; Z93.3 Colostomy status; Z83.3 Family history of diabetes mellitus; Z79.01 Long term (current) use of anticoagulants; Z91.199 Patient's noncompliance with other medical treatment and regimen due to unspecified reason; Z68.33 Body mass index [BMI] 33.0-33.9, adult
CPT/HCPCS: 93308; 99285; Z7506; Z7508; 36410; 36415; 36430; 36600; 71045; 74018; 74176; 76705; 76937; 80048; 80053; 80305; 81001; 82803; 82948; 83605; 83735; 83880; 84100; 84132; 84134; 84478; 84484; 85007; 85008; 85018; 85025; 85027; 85610; 86885; 86900; 86901; 86920; 87040; 87070; 87081; 87324; 87449; 87811; 92508; 92616; 93005; 94002; 94003; 94660; 94760; 97110; 97116; 97161; 97162; 97530; A4333; A4338; A4349; A4421; A4615; A4618; A5200; A6209; A6212; A6213; A6222; A6223; A6250; A6253; A6258; A6402; A6449; A7000; C1751; C9113; G0378; J0282; J1100; J1120; J1644; J1815; J1940; J1956; J2060; J2250; J2405; J2704; J3010; J3360; J3475; J3480; J3490; J7030; J7040; J7050; J7060; J7120; P9016; P9045; P9047; Q0163

== ENCOUNTER 2022-12-26 11:11 | Inpatient (IN) | payer BC ==
[~2022-12-26] VITALS: Ht 175.3 cm; Wt 90.9 kg
[~2022-12-26 11:11] MED LIST changes: -ACET-1008 PO; +DILT-103 PO; -DILT240C90 PO; +DIPH-629 PO; +DOXY25TA19 PO; +FERR325T35 PO; +METO50TA17 PO; -MULT-1085 PO
[2022-12-26] MEDS: diatr meglu/diatrizoate 30ml oral sol.-(3 dose) bottle PO SCH ×3 (12:16→13:59)
[2022-12-26 12:30] LABS: BASOPHILS # (AUTO) 0.1 X10'3 (0-0.2); BASOPHILS % (AUTO) 1.2 % (0-1); EOSINOPHILS # (AUTO) 0.2 X10'3 (0-0.9); EOSINOPHILS % (AUTO) 2.2 % (0-6); LYMPHOCYTES # (AUTO) 0.8 X10'3 (1.1-4.8); LYMPHOCYTES % (AUTO) 8.7 % (21-51); MEAN PLATELET VOLUME 7.9 FL (7.4-10.4); MONOCYTES # (AUTO) 0.8 X10'3 (0-0.9); MONOCYTES % (AUTO) 8.3 % (2-12); NEUTROPHILS # (AUTO) 7.2 X10'3 (1.8-7.7); NEUTROPHILS % (AUTO) 79.6 % (42-75); PLATELET COUNT 277 X10'3 (140-440)
[2022-12-26 12:39] LABS: ALANINE AMINOTRANSFERASE 19 U/L (12-78); ALBUMIN 2.8 G/DL (3.4-5.0); ALBUMIN/GLOBULIN RATIO 0.5 (1.1-1.5); ALKALINE PHOSPHATASE 175 IU/L (46-116); ANION GAP 5 (8-16); BILIRUBIN,TOTAL 0.3 MG/DL (0.1-1.0); BLOOD UREA NITROGEN 28 MG/DL (7-18); BUN/CREATININE RATIO 19.9 (5.4-32.0); CALCIUM 8.5 MG/DL (8.5-10.1); CHLORIDE 101 MMOL/L (99-107); CREATININE 1.41 MG/DL (0.60-1.10); GLUCOSE 111 MG/DL (70-104); SODIUM 133 MMOL/L (135-145); TOTAL CARBON DIOXIDE 27.1 MMOL/L (24-32); TOTAL PROTEIN 8.1 G/DL (6.4-8.2); eGFR 51 ML/MIN
[2022-12-26 12:49] LABS: ASPARTATE AMINO TRANSFERASE 38 U/L (10-37); POTASSIUM 5.7 MMOL/L (3.5-5.1)
[2022-12-26 13:00] LABS: HEMATOCRIT 43.8 % (42.0-52.0); MEAN CORPUSCULAR HEMOGLOBIN 27.6 PG (27.0-31.0); MEAN CORPUSCULAR HGB CONC 31.9 g/dL (33.0-36.5); MEAN CORPUSCULAR VOLUME 86.6 FL (78-98); RED BLOOD COUNT 5.06 X10'6 (4.70-6.10); RED CELL DISTRIBUTION WIDTH 19.4 % (11.5-14.5)
[2022-12-26 13:47] LABS: PLATELET ESTIMATE NORMAL
[2022-12-26 13:48] LABS: ACANTHOCYTES FEW; ANISOCYTOSIS 2+; SCHISTOCYTES FEW
[2022-12-26] MEDS ORDERED: iohexol 300mg/ml 100ml inj. ONE (14:30)
[2022-12-26 15:34] LABS: CLARITY,URINE CLEAR (Clear); COLOR,URINE ORANGE (Yellow); UA COLLECTION TYPE VOIDED
[2022-12-26 15:52] LABS: WBC,URINE 0-4 /HPF (0-4)
[2022-12-26 15:54] LABS: BACTERIA,URINE FEW /HPF (Neg); SQUAMOUS EPITHELIAL CELL,UR NONE SEEN /LPF (FEW)
[2022-12-26 15:55] LABS: HYALINE CASTS 0-3 /LPF (NEGATIVE)
[2022-12-26 18:06] LABS: ALBUMIN 3.1 G/DL (3.4-5.0); ANION GAP 7 (8-16); BLOOD UREA NITROGEN 26 MG/DL (7-18); BUN/CREATININE RATIO 18.6 (5.4-32.0); CALCIUM 8.9 MG/DL (8.5-10.1); CHLORIDE 100 MMOL/L (99-107); GLUCOSE 86 MG/DL (70-104); POTASSIUM 5.2 MMOL/L (3.5-5.1); SODIUM 134 MMOL/L (135-145); TOTAL CARBON DIOXIDE 26.8 MMOL/L (24-32); eGFR 52 ML/MIN
--- NOTE | 2022-12-26 18:50 | NUR ---
Pt upset over length of stay, repeatedly stating, "Nobody is telling me the truth. I was told I would only be here for 30min to have scan done and then go back to [facility] and I have been here for 7 hours". Pt refusing assessment and viatl signs.
--- NOTE | 2022-12-26 19:00 | NUR ---
Pt refusing vital signs
--- NOTE | 2022-12-26 20:30 | NUR ---
Pt very upset over length of stay and refusing vital signs
[2022-12-26] MEDS ORDERED: ciprofloxacin lact 400MG/200ML 200 ML IV STA (20:53)
[2022-12-26] MEDS ORDERED: metroNIDAZOLE-Flagyl 500mg/NS 100 ML IV STA (20:53)
--- NOTE | 2022-12-26 21:00 | NUR ---
Pt upset over length of stay. Dr Torres at bedside attempting to calm pt. Pt agreeed to stay and complete treatment
[2022-12-26] MEDS ORDERED: potassium Cl 40MEQ/1/2NS 520ml 520 ML IV PRN (21:35)
[2022-12-26] MEDS ORDERED: HYDROcodone/acetaminophen 5mg/325mg tablet PO PRN (21:35)
[2022-12-26] MEDS ORDERED: mag hydrox/Alum hydrox/simeth 30ml oral suspension PO PRN (21:35)
[2022-12-26] MEDS ORDERED: acetaminophen 325mg tablet PO PRN (21:35)
[2022-12-26] MEDS ORDERED: potassium Cl 20 mEq SR tablet PO PRN ×2 (21:35)
[2022-12-26] MEDS: normal saline 1000ml 1,000 ML IV SCH (21:35)
[2022-12-26] MEDS ORDERED: magnesium hydroxide 30ml (MOM) UD suspension PO PRN (21:35)
[2022-12-26] MEDS ORDERED: magnesium Cl slow-release 64mg tablet PO PRN (21:35)
[2022-12-26] MEDS ORDERED: magnesium 4gm in 100ml NS 100 ML IV PRN (21:35)
[2022-12-26] MEDS ORDERED: ondansetron/PF 4mg/2ml inj IV PRN (21:35)
--- NOTE | 2022-12-26 22:55 | NUR ---
Patient in room SWETHA 350. I have received report from YESSY Hernández and had the opportunity to ask questions and assume patient care.
--- NOTE | 2022-12-26 23:00 | NUR ---
Colostomy back changed
--- NOTE | 2022-12-26 23:30 | NUR ---
pt arrived to floor via wheel chair. settled into room. pt preferred to be sitting up in chair. call light in reach.
[2022-12-26 23:45] VITALS: BP 87/56
[2022-12-27] VITALS (10 sets, daily range): BP systolic 84–129; BP diastolic 52–77
[2022-12-27 06:20] LABS: BASOPHILS % (AUTO) 0.3 % (0-1); EOSINOPHILS # (AUTO) 0.2 X10'3 (0-0.9); EOSINOPHILS % (AUTO) 1.6 % (0-6); HEMATOCRIT 45.8 % (42.0-52.0); HEMOGLOBIN 14.4 g/dl (14.0-17.9); LYMPHOCYTES # (AUTO) 0.9 X10'3 (1.1-4.8); LYMPHOCYTES % (AUTO) 6.9 % (21-51); MEAN CORPUSCULAR HGB CONC 31.5 g/dL (33.0-36.5); MEAN CORPUSCULAR VOLUME 88.9 FL (78-98); MEAN PLATELET VOLUME 7.9 FL (7.4-10.4); MONOCYTES # (AUTO) 0.8 X10'3 (0-0.9); MONOCYTES % (AUTO) 6.7 % (2-12); NEUTROPHILS # (AUTO) 10.7 X10'3 (1.8-7.7); NEUTROPHILS % (AUTO) 84.5 % (42-75); PLATELET COUNT 325 X10'3 (140-440); RED BLOOD COUNT 5.14 X10'6 (4.70-6.10); RED CELL DISTRIBUTION WIDTH 19.2 % (11.5-14.5); WHITE BLOOD COUNT 12.7 X10'3 (4.5-11.0)
--- NOTE | 2022-12-27 06:31 | NUR ---
Problems reprioritized. Patient report given, questions answered & plan of care reviewed with FLAVIO Delgado and YESSY Cardozo.
[2022-12-27 06:32] LABS: ALANINE AMINOTRANSFERASE 14 U/L (12-78); ALBUMIN 2.9 G/DL (3.4-5.0); ALBUMIN/GLOBULIN RATIO 0.6 (1.1-1.5); ALKALINE PHOSPHATASE 181 IU/L (46-116); ANION GAP 9 (8-16); ASPARTATE AMINO TRANSFERASE 16 U/L (10-37); BILIRUBIN,TOTAL 0.3 MG/DL (0.1-1.0); BLOOD UREA NITROGEN 29 MG/DL (7-18); CALCIUM 8.8 MG/DL (8.5-10.1); CHLORIDE 102 MMOL/L (99-107); CREATININE 1.45 MG/DL (0.60-1.10); GLUCOSE 78 MG/DL (70-104); MAGNESIUM 1.9 MG/DL (1.5-2.4); POTASSIUM 4.6 MMOL/L (3.5-5.1); SODIUM 134 MMOL/L (135-145); TOTAL CARBON DIOXIDE 22.6 MMOL/L (24-32); TOTAL PROTEIN 8.1 G/DL (6.4-8.2); eGFR 50 ML/MIN
[2022-12-27 06:53] LABS: ANISOCYTOSIS 2+; PLATELET ESTIMATE NORMAL
[2022-12-27 06:55] LABS: ACANTHOCYTES FEW; BURR CELLS 5
[2022-12-27 06:56] LABS: SCHISTOCYTES FEW
--- NOTE | 2022-12-27 07:02 | NUR ---
Patient in room SWETHA 350. I have received report from ling KRISHNAMURTHY and had the opportunity to ask questions and assume patient care.
[2022-12-27] MEDS ORDERED: ciprofloxacin lact 400MG/200ML 200 ML IV SCH (08:00)
[2022-12-27] MEDS ORDERED: metroNIDAZOLE-Flagyl 500mg/NS 100 ML IV SCH (08:00)
[2022-12-27] MEDS: K and/or MAG REPLACEMENT MC SCH ×2 (08:00→19:30)
[2022-12-27] MEDS: docusate sod 100mg capsule PO SCH ×2 (08:00→19:31)
--- NOTE | 2022-12-27 10:01 | NUR ---
pt. 52A Sharon states he wants to go back to av or talk to a his MD. [facility] (
--- NOTE | 2022-12-27 12:11 | NUR ---
Paged David regarding patient needing X-ray of midline placement. approved X-ray for placement.
[2022-12-27] MEDS ORDERED: midazolam 1 mg/ML 2ml injection ONE (14:00)
[2022-12-27] MEDS ORDERED: fentaNYL/PF 50MCG/1 ML 2ML syringe ONE (14:00)
[2022-12-27] MEDS ORDERED: AMIO200T27 PO (15:11)
[2022-12-27] MEDS ORDERED: CLIN60SO2 TOP (15:11)
[2022-12-27] MEDS ORDERED: LORA10TA7 PO (15:12)
[2022-12-27] MEDS ORDERED: NYSPWD TOP (15:13)
[2022-12-27] MEDS ORDERED: PHEN-887 PO (15:14)
[2022-12-27] MEDS ORDERED: ACET325T64 PO (15:31)
[2022-12-27] MEDS ORDERED: MELA3TAB39 PO (15:34)
[2022-12-27] MEDS ORDERED: LIDO40SO TOP (15:34)
[2022-12-27] MEDS ORDERED: METO5TAB98 PO (15:35)
[2022-12-27] MEDS ORDERED: ONDA4TAB12 PO (16:17)
[2022-12-27] MEDS ORDERED: POLY17PO59 PO (16:18)
[2022-12-27] MEDS ORDERED: SODI473S26 TOP (16:19)
[2022-12-27] MEDS ORDERED: PRAM177L28 TOP (16:20)
[2022-12-27] MEDS ORDERED: TRAM50TA2 PO (16:23)
[2022-12-27] MEDS ORDERED: METR-159 PO (16:33)
--- NOTE | 2022-12-27 18:21 | NUR ---
PAGER ID: [phone] MESSAGE: Johnnie Herrera#[phone]- Pt cannot go home until tomorrow, transportation issues. Pt also needs Benadryl, very itchy. Thank you [facility] [phone]
[2022-12-27] MEDS ORDERED: diphenhydrAMINE 25mg capsule PO ONE (18:25)
--- NOTE | 2022-12-27 18:25 | NUR ---
spoke to Dr santana regarding pt being DC home today. Pt states he has no ride home. Also hie personal belongings are at [facility]. Spoke to Dr santana and she said talk to Kay to help with transportation. Message left for Ms. Villanueva requesting help with transportation.
--- NOTE | 2022-12-27 18:30 | NUR ---
Patient in room SWETHA 350. I have received report from AKIL Delgado and had the opportunity to ask questions and assume patient care.
[2022-12-27] MEDS ORDERED: ciprofloxacin 250mg tablet PO SCH (20:00)
[2022-12-28] MEDS ORDERED: metroNIDAZOLE 500mg tablet PO SCH
[2022-12-28] MEDS ORDERED: diphenhydrAMINE 25mg capsule PO PRN (05:10)
[2022-12-28 05:30] VITALS: BP 100/56
--- NOTE | 2022-12-28 06:40 | NUR ---
Patient in room SWETHA 350. I have received report from YESSY dubon and had the opportunity to ask questions and assume patient care.
--- NOTE | 2022-12-28 07:05 | NUR ---
Problems reprioritized. Patient report given, questions answered & plan of care reviewed with YESSY Torres.
[2022-12-28 07:54] LABS: BASOPHILS % (AUTO) 0.1 % (0-1); EOSINOPHILS # (AUTO) 0.6 X10'3 (0-0.9); EOSINOPHILS % (AUTO) 3.9 % (0-6); HEMATOCRIT 47.4 % (42.0-52.0); HEMOGLOBIN 14.9 g/dl (14.0-17.9); LYMPHOCYTES % (AUTO) 5.8 % (21-51); MEAN CORPUSCULAR HEMOGLOBIN 27.9 PG (27.0-31.0); MEAN CORPUSCULAR HGB CONC 31.5 g/dL (33.0-36.5); MEAN CORPUSCULAR VOLUME 88.7 FL (78-98); MONOCYTES # (AUTO) 1.1 X10'3 (0-0.9); MONOCYTES % (AUTO) 6.6 % (2-12); NEUTROPHILS # (AUTO) 13.8 X10'3 (1.8-7.7); NEUTROPHILS % (AUTO) 83.6 % (42-75); PLATELET COUNT 328 X10'3 (140-440); RED BLOOD COUNT 5.35 X10'6 (4.70-6.10); RED CELL DISTRIBUTION WIDTH 19.2 % (11.5-14.5); WHITE BLOOD COUNT 16.5 X10'3 (4.5-11.0)
[2022-12-28] MEDS: K and/or MAG REPLACEMENT MC SCH ×2 (08:00→19:24)
[2022-12-28] MEDS: normal saline 1000ml 1,000 ML IV SCH ×2 (08:02→20:09)
[2022-12-28 08:18] LABS: ALANINE AMINOTRANSFERASE 16 U/L (12-78); ALBUMIN 2.7 G/DL (3.4-5.0); ALBUMIN/GLOBULIN RATIO 0.6 (1.1-1.5); ALKALINE PHOSPHATASE 165 IU/L (46-116); ANION GAP 6 (8-16); ASPARTATE AMINO TRANSFERASE 18 U/L (10-37); BILIRUBIN,TOTAL 0.3 MG/DL (0.1-1.0); BLOOD UREA NITROGEN 41 MG/DL (7-18); BUN/CREATININE RATIO 21.5 (5.4-32.0); CALCIUM 8.2 MG/DL (8.5-10.1); CHLORIDE 100 MMOL/L (99-107); CREATININE 1.91 MG/DL (0.60-1.10); GLUCOSE 118 MG/DL (70-104); MAGNESIUM 1.6 MG/DL (1.5-2.4); POTASSIUM 4.8 MMOL/L (3.5-5.1); SODIUM 129 MMOL/L (135-145); TOTAL CARBON DIOXIDE 22.7 MMOL/L (24-32); TOTAL PROTEIN 7.5 G/DL (6.4-8.2); eGFR 36 ML/MIN
[2022-12-28 09:09] VITALS: BP 98/56
--- NOTE | 2022-12-28 09:30 | NUR ---
[facility] who said that pt unable to go back to [facility] today as pt's insurance BC exchange has to reauthorize pt to come back and there are no beds available if authorized. Spoke with Dr. Hernandez regarding this and she examined pt and said to call [facility] regarding pt's ambulatory status for a home discharge. Spoke with Opal AVILA at [facility] who said that CM had been planning to DC pt this week, a follow up appointment was made to follow up with his PMD as well as provided him with a walker which was brought to his room today. They also said that their PT had discharged the pt to nursing for ambulation on 11/28/22. Notified Dr. Hernandez of findings and notified our CM to assist with ride for pt and ostomy supplies.
[2022-12-28] MEDS: ciprofloxacin 250mg tablet PO SCH ×2 (10:13→21:21)
[2022-12-28] MEDS: hydrOXYzine 10 MG tablet PO SCH ×3 (10:14→20:00)
[2022-12-28] MEDS: metroNIDAZOLE 500mg tablet PO SCH ×2 (10:14→20:00)
--- NOTE | 2022-12-28 10:26 | NUR ---
Patient discharging home now, refused WOC consult.
[2022-12-28] MEDS: diphenhydrAMINE 25mg capsule PO PRN ×2 (12:25→21:07)
[2022-12-28 13:07] LABS: BASOPHILS % (AUTO) 0.3 % (0-1); EOSINOPHILS # (AUTO) 0.6 X10'3 (0-0.9); EOSINOPHILS % (AUTO) 3.8 % (0-6); HEMATOCRIT 52.1 % (42.0-52.0); HEMOGLOBIN 15.9 g/dl (14.0-17.9); LYMPHOCYTES # (AUTO) 0.8 X10'3 (1.1-4.8); LYMPHOCYTES % (AUTO) 5.1 % (21-51); MEAN CORPUSCULAR HEMOGLOBIN 27.6 PG (27.0-31.0); MEAN CORPUSCULAR HGB CONC 30.5 g/dL (33.0-36.5); MEAN CORPUSCULAR VOLUME 90.4 FL (78-98); MEAN PLATELET VOLUME 7.9 FL (7.4-10.4); MONOCYTES # (AUTO) 0.9 X10'3 (0-0.9); MONOCYTES % (AUTO) 5.6 % (2-12); NEUTROPHILS # (AUTO) 13.2 X10'3 (1.8-7.7); NEUTROPHILS % (AUTO) 85.2 % (42-75); PLATELET COUNT 259 X10'3 (140-440); RED BLOOD COUNT 5.76 X10'6 (4.70-6.10); RED CELL DISTRIBUTION WIDTH 19.8 % (11.5-14.5); WHITE BLOOD COUNT 15.5 X10'3 (4.5-11.0)
--- NOTE | 2022-12-28 14:32 | NUR ---
Student Medication Administration: For this medication-pass time frame, all medication were reviewed, dispensed, administered and documented per hospital policy by Des Coronel student nurse with Melody Pro RN instructor.
--- NOTE | 2022-12-28 17:42 | NUR ---
Student documentation: I have reviewed and agree with all interventions, assessments performed and documented by Des Coronel student nurse, by Melody Pro RN Instructor
[2022-12-28 18:30] VITALS: BP 90/59
--- NOTE | 2022-12-28 18:40 | NUR ---
Problems reprioritized. Patient report given, questions answered & plan of care reviewed with YESSY Pitts.
[2022-12-28 22:00] VITALS: BP 100/68
[2022-12-29] MEDS: hydrOXYzine 10 MG tablet PO SCH ×3 (01:55→14:06)
[2022-12-29 05:30] VITALS: BP 93/65
[2022-12-29 06:06] LABS: BASOPHILS % (AUTO) 0.3 % (0-1); EOSINOPHILS # (AUTO) 0.7 X10'3 (0-0.9); EOSINOPHILS % (AUTO) 6.1 % (0-6); HEMATOCRIT 44.4 % (42.0-52.0); HEMOGLOBIN 13.9 g/dl (14.0-17.9); LYMPHOCYTES # (AUTO) 0.9 X10'3 (1.1-4.8); LYMPHOCYTES % (AUTO) 7.6 % (21-51); MEAN CORPUSCULAR HEMOGLOBIN 27.6 PG (27.0-31.0); MEAN CORPUSCULAR HGB CONC 31.2 g/dL (33.0-36.5); MEAN CORPUSCULAR VOLUME 88.3 FL (78-98); MEAN PLATELET VOLUME 8.2 FL (7.4-10.4); MONOCYTES # (AUTO) 0.9 X10'3 (0-0.9); MONOCYTES % (AUTO) 7.6 % (2-12); NEUTROPHILS % (AUTO) 78.4 % (42-75); PLATELET COUNT 298 X10'3 (140-440); RED BLOOD COUNT 5.02 X10'6 (4.70-6.10); WHITE BLOOD COUNT 11.5 X10'3 (4.5-11.0)
[2022-12-29 06:17] LABS: ALANINE AMINOTRANSFERASE 10 U/L (12-78); ALBUMIN 2.6 G/DL (3.4-5.0); ALBUMIN/GLOBULIN RATIO 0.6 (1.1-1.5); ALKALINE PHOSPHATASE 147 IU/L (46-116); ANION GAP 5 (8-16); ASPARTATE AMINO TRANSFERASE 20 U/L (10-37); BILIRUBIN,TOTAL 0.2 MG/DL (0.1-1.0); BLOOD UREA NITROGEN 38 MG/DL (7-18); CALCIUM 8.4 MG/DL (8.5-10.1); CHLORIDE 105 MMOL/L (99-107); CREATININE 1.65 MG/DL (0.60-1.10); GLUCOSE 108 MG/DL (70-104); MAGNESIUM 1.7 MG/DL (1.5-2.4); POTASSIUM 4.7 MMOL/L (3.5-5.1); SODIUM 133 MMOL/L (135-145); TOTAL CARBON DIOXIDE 23.1 MMOL/L (24-32); TOTAL PROTEIN 7.2 G/DL (6.4-8.2); eGFR 43 ML/MIN
--- NOTE | 2022-12-29 06:20 | NUR ---
Patient in room SWETHA 350. I have received report from YESSY Pitts and had the opportunity to ask questions and assume patient care.
[2022-12-29] MEDS: K and/or MAG REPLACEMENT MC SCH (07:17)
[2022-12-29] MEDS ORDERED: TRIA15OI9 TOP (09:42)
[2022-12-29 10:00] VITALS: BP 111/73
[2022-12-29] MEDS ORDERED: CIPR-259 PO (11:22)
[2022-12-29] MEDS: diphenhydrAMINE 25mg capsule PO PRN (11:28)
--- NOTE | 2022-12-29 15:40 | NUR ---
DC inst provided to pt. CHAYA x2 DC'd, tip intact. All belongings sent w/pt. WC to cab, cab to [facility] to brick picker home meds then cab to home. Addendum: 12/29/22 at 1635 by Melissa Damico RN Upon removing RUE IV (Documented a PICC) it was an extended NOT a PICC.
== END 2022-12-29 15:37 | disposition home or self-care (01) | DRG 863 ==
LOC: ER 11:12 → ED HOLD 21:34 → SUR 3N 23:30
PROVIDERS: ADMIT Internal Medicine; ATTEND Internal Medicine
PROC: BW211ZZ Computerized Tomography (CT Scan) of Abdomen and Pelvis using Low Osmolar Contrast (ICD-10-PCS; 2022-12-26)
PROC: 0W9F3ZZ Drainage of Abdominal Wall, Percutaneous Approach (ICD-10-PCS; principal; 2022-12-27)
DX: T81.49XA Infection following a procedure, other surgical site, initial encounter (principal); I50.32 Chronic diastolic (congestive) heart failure; I11.0 Hypertensive heart disease with heart failure; Y83.8 Other surgical procedures as the cause of abnormal reaction of the patient, or of later complication, without mention of misadventure at the time of the procedure; N21.0 Calculus in bladder; Z79.01 Long term (current) use of anticoagulants; Z87.440 Personal history of urinary (tract) infections; Z87.442 Personal history of urinary calculi; Z93.3 Colostomy status; Z88.0 Allergy status to penicillin; Z88.7 Allergy status to serum and vaccine; Z88.8 Allergy status to other drugs, medicaments and biological substances; Z79.899 Other long term (current) drug therapy; Y92.89 Other specified places as the place of occurrence of the external cause
CPT/HCPCS: 36415; 49406; 71045; 74177; 80048; 80053; 81001; 82948; 83605; 83735; 84132; 84145; 85008; 85025; 87040; 87070; 87081; 93005; 99285; A4421; A4615; A6258; C1729; C1769; G0378; J0744; J2250; J3010; J3490; J7030; Q0163; Q9963; Q9967

== ENCOUNTER 2023-03-20 12:04 | Inpatient (IN) | payer BC, MEDICAID ==
[~2023-03-20] VITALS: Ht 175.3 cm; Wt 109.5 kg
[~2023-03-20 12:04] MED LIST changes: +ACET325T64 PO; +AMIO200T27 PO; +CIPR-259 PO; +CLIN60SO2 TOP; -DILT-103 PO; -DOXY25TA19 PO; -FURO20TA4 PO; +LIDO40SO TOP; +LORA10TA7 PO; +MELA3TAB39 PO; -METO50TA17 PO; +METO5TAB98 PO; +METR-159 PO; +NYSPWD TOP; +ONDA4TAB12 PO; +PHEN-887 PO; +POLY17PO59 PO; -POTA-206 PO; +PRAM177L28 TOP; +SODI473S26 TOP; +TRAM50TA2 PO; +TRIA15OI9 TOP
[2023-03-20 13:18] LABS: BASOPHILS # (AUTO) 0.2 X10'3 (0-0.2); EOSINOPHILS # (AUTO) 0.3 X10'3 (0-0.9); LYMPHOCYTES # (AUTO) 1.1 X10'3 (1.1-4.8); MEAN CORPUSCULAR HGB CONC 30.6 g/dL (33.0-36.5); MONOCYTES # (AUTO) 0.9 X10'3 (0-0.9); MONOCYTES % (AUTO) 7.2 % (2-12)
[2023-03-20 13:22] LABS: BASOPHILS % (AUTO) 1.2 % (0-1); EOSINOPHILS % (AUTO) 2.5 % (0-6); HEMATOCRIT 39.6 % (42.0-52.0); HEMOGLOBIN 12.1 g/dl (14.0-17.9); LYMPHOCYTES % (AUTO) 8.6 % (21-51); MEAN CORPUSCULAR HEMOGLOBIN 28.8 PG (27.0-31.0); MEAN CORPUSCULAR VOLUME 94.2 FL (78-98); MEAN PLATELET VOLUME 7.6 FL (7.4-10.4); NEUTROPHILS # (AUTO) 10.3 X10'3 (1.8-7.7); NEUTROPHILS % (AUTO) 80.5 % (42-75); PLATELET COUNT 253 X10'3 (140-440); RED BLOOD COUNT 4.21 X10'6 (4.70-6.10); RED CELL DISTRIBUTION WIDTH 22.6 % (11.5-14.5); WHITE BLOOD COUNT 12.7 X10'3 (4.5-11.0)
[2023-03-20 13:30] LABS: APTT 29 SECONDS (22-32)
[2023-03-20 13:34] LABS: ALANINE AMINOTRANSFERASE 13 U/L (12-78); ALBUMIN 2.9 G/DL (3.4-5.0); ALBUMIN/GLOBULIN RATIO 0.8 (1.1-1.5); ALKALINE PHOSPHATASE 131 IU/L (46-116); ANION GAP 2 (8-16); ASPARTATE AMINO TRANSFERASE 15 U/L (10-37); BILIRUBIN,TOTAL 0.6 MG/DL (0.1-1.0); BLOOD UREA NITROGEN 25 MG/DL (7-18); BUN/CREATININE RATIO 18.8 (10.0-20.0); CALCIUM 8.1 MG/DL (8.5-10.1); CHLORIDE 105 MMOL/L (99-107); CREATININE 1.33 MG/DL (0.60-1.10); GLUCOSE 164 MG/DL (70-104); POTASSIUM 4.9 MMOL/L (3.5-5.1); SODIUM 142 MMOL/L (135-145); TOTAL PROTEIN 6.4 G/DL (6.4-8.2); eGFR 55 ML/MIN
[2023-03-20 14:25] LABS: TOTAL CELLS COUNTED 100
[2023-03-20 14:26] LABS: ANISOCYTOSIS 3+; PLATELET ESTIMATE NORMAL; POIKILOCYTOSIS 2+
[2023-03-20 14:28] LABS: SPHEROCYTES 1+; STOMATOCYTES 1+
[2023-03-20] MEDS ORDERED: normal saline 1000ML IV soln IV ONE (15:45)
[2023-03-20 16:27] LABS: BASOPHILS # (AUTO) 0.2 X10'3 (0-0.2); EOSINOPHILS # (AUTO) 0.3 X10'3 (0-0.9); EOSINOPHILS % (AUTO) 2.8 % (0-6); HEMATOCRIT 39.3 % (42.0-52.0); HEMOGLOBIN 12.1 g/dl (14.0-17.9); LYMPHOCYTES # (AUTO) 1.3 X10'3 (1.1-4.8); LYMPHOCYTES % (AUTO) 10.7 % (21-51); MEAN CORPUSCULAR HGB CONC 30.7 g/dL (33.0-36.5); MEAN CORPUSCULAR VOLUME 94.3 FL (78-98); MEAN PLATELET VOLUME 7.5 FL (7.4-10.4); MONOCYTES # (AUTO) 0.7 X10'3 (0-0.9); MONOCYTES % (AUTO) 5.7 % (2-12); NEUTROPHILS # (AUTO) 9.4 X10'3 (1.8-7.7); NEUTROPHILS % (AUTO) 78.8 % (42-75); PLATELET COUNT 262 X10'3 (140-440); RED BLOOD COUNT 4.17 X10'6 (4.70-6.10); RED CELL DISTRIBUTION WIDTH 23.1 % (11.5-14.5); WHITE BLOOD COUNT 11.9 X10'3 (4.5-11.0)
[2023-03-20] MEDS ORDERED: mag hydrox/Alum hydrox/simeth 30ml oral suspension PO PRN (17:40)
[2023-03-20] MEDS ORDERED: acetaminophen 325mg tablet PO PRN ×2 (17:40)
[2023-03-20] MEDS ORDERED: HYDROcodone/acetaminophen 5mg/325mg tablet PO PRN (17:40)
[2023-03-20] MEDS ORDERED: HYDROcodone/acetaminophen 10/325mg tab PO PRN (17:40)
[2023-03-20] MEDS ORDERED: magnesium hydroxide 30ml (MOM) UD suspension PO PRN (17:40)
[2023-03-20] MEDS ORDERED: morphine 2 MG/ML inj. syringe IV PRN ×2 (17:40)
[2023-03-20] MEDS: dextrose 5%-1/2 normal saline 1,000 ML IV SCH (17:49)
[2023-03-20] MEDS: docusate sod 100mg capsule PO SCH (19:35)
[2023-03-21] VITALS (29 sets, daily range): BP systolic 92–119; BP diastolic 51–90
[2023-03-21] MEDS ORDERED: CIPR-259 PO (01:39)
[2023-03-21] MEDS ORDERED: FLO0.4C PO (01:39)
[2023-03-21] MEDS: dextrose 5%-1/2 normal saline 1,000 ML IV SCH ×2 (05:53→09:15)
[2023-03-21 06:49] LABS: BASOPHILS # (AUTO) 0.2 X10'3 (0-0.2); BASOPHILS % (AUTO) 1.3 % (0-1); EOSINOPHILS # (AUTO) 0.2 X10'3 (0-0.9); EOSINOPHILS % (AUTO) 1.5 % (0-6); LYMPHOCYTES % (AUTO) 7.5 % (21-51); MEAN CORPUSCULAR HEMOGLOBIN 29.2 PG (27.0-31.0); MEAN PLATELET VOLUME 7.6 FL (7.4-10.4); MONOCYTES # (AUTO) 0.8 X10'3 (0-0.9); MONOCYTES % (AUTO) 6.3 % (2-12); NEUTROPHILS # (AUTO) 10.8 X10'3 (1.8-7.7); NEUTROPHILS % (AUTO) 83.4 % (42-75)
[2023-03-21 07:05] LABS: ALBUMIN 2.9 G/DL (3.4-5.0); ANION GAP 1 (8-16); BLOOD UREA NITROGEN 23 MG/DL (7-18); BUN/CREATININE RATIO 17.4 (10.0-20.0); CALCIUM 8.1 MG/DL (8.5-10.1); CHLORIDE 106 MMOL/L (99-107); CREATININE 1.32 MG/DL (0.60-1.10); GLUCOSE 131 MG/DL (70-104); SODIUM 141 MMOL/L (135-145); TOTAL CARBON DIOXIDE 34.2 MMOL/L (24-32); eGFR 55 ML/MIN
[2023-03-21 07:11] LABS: POTASSIUM 5.6 MMOL/L (3.5-5.1)
[2023-03-21 07:40] LABS: HEMATOCRIT 40.8 % (42.0-52.0); HEMOGLOBIN 12.8 g/dl (14.0-17.9); MEAN CORPUSCULAR HGB CONC 31.4 g/dL (33.0-36.5); MEAN CORPUSCULAR VOLUME 92.9 FL (78-98); PLATELET COUNT 272 X10'3 (140-440); RED BLOOD COUNT 4.39 X10'6 (4.70-6.10); RED CELL DISTRIBUTION WIDTH 22.3 % (11.5-14.5); WHITE BLOOD COUNT 13.7 X10'3 (4.5-11.0)
[2023-03-21] MEDS: docusate sod 100mg capsule PO SCH ×2 (08:00→20:00)
[2023-03-21 09:07] LABS: TOTAL CELLS COUNTED 100
[2023-03-21 09:08] LABS: ANISOCYTOSIS 3+; PLATELET ESTIMATE NORMAL
[2023-03-21 09:11] LABS: ALANINE AMINOTRANSFERASE 16 U/L (12-78); ALBUMIN 2.9 G/DL (3.4-5.0); ALBUMIN/GLOBULIN RATIO 0.8 (1.1-1.5); ALKALINE PHOSPHATASE 121 IU/L (46-116); ASPARTATE AMINO TRANSFERASE 20 U/L (10-37); BILIRUBIN,TOTAL 0.6 MG/DL (0.1-1.0); BLOOD UREA NITROGEN 23 MG/DL (7-18); BUN/CREATININE RATIO 17.6 (10.0-20.0); CHLORIDE 106 MMOL/L (99-107); CREATININE 1.31 MG/DL (0.60-1.10); GLUCOSE 147 MG/DL (70-104); TOTAL CARBON DIOXIDE 33.6 MMOL/L (24-32); TOTAL PROTEIN 6.7 G/DL (6.4-8.2); eGFR 56 ML/MIN
[2023-03-21 09:13] LABS: ANION GAP 2 (8-16); POTASSIUM 5.3 MMOL/L (3.5-5.1); SODIUM 142 MMOL/L (135-145)
[2023-03-21] MEDS: diltiazem-NS 100mg/100ml 100 ML IV SCH (11:35)
[2023-03-21] MEDS ORDERED: fentaNYL/PF 50MCG/1 ML 2ML syringe ONE (12:17)
[2023-03-21] MEDS ORDERED: midazolam 1 mg/ML 2ml injection ONE (12:17)
[2023-03-21] MEDS ORDERED: ringers solution, lacted 1,000 ML IV SCH (12:30)
[2023-03-21] MEDS ORDERED: morphine 4 MG/ML inj SYRINge IV PRN (12:30)
[2023-03-21] MEDS ORDERED: morphine 2 MG/ML inj. syringe IV PRN (12:30)
[2023-03-21] MEDS ORDERED: ondansetron/PF 4mg/2ml inj IV PRN (12:30)
[2023-03-21] MEDS ORDERED: meperidine/PF 25mg/ml syringe IV PRN ×3 (12:30)
[2023-03-21] MEDS ORDERED: proCHLORperazine 10 MG/2 ml inj IV PRN (12:30)
[2023-03-21] MEDS ORDERED: sevoflurane 250ml liquid IH ONE (12:37)
[2023-03-21] MEDS ORDERED: clindamycin-Cleocin 900mg/D5W 50 ML IV ONE (12:52)
[2023-03-21] MEDS ORDERED: BUPIVAcaine/PF 2.5mg/ml (0.25%) 10ml vial ONE (13:14)
[2023-03-21] MEDS ORDERED: LIDOcaine 2% (20mg/ml) 5ml vial ONE (13:24)
[2023-03-21] MEDS ORDERED: ondansetron/PF 4mg/2ml inj ONE (13:24)
[2023-03-21] MEDS ORDERED: propofol inj 20 ML IV ONE (13:24)
[2023-03-21] MEDS ORDERED: phenylephrine 10mg/ml inj. -priapism dosing ONE (13:24)
[2023-03-21] MEDS ORDERED: rocuronium 10mg/ml inj IV ONE (13:24)
[2023-03-21] MEDS ORDERED: sugammadex 200mg/2ml injection IV ONE ×2 (13:25→13:38)
[2023-03-21] MEDS ORDERED: ipratropium/albuterol 3ml nebule NEB PRN (13:55)
[2023-03-21 14:20] LABS: ABG BASE EXCESS -0.1 mmol/L (-2.0-2.0); ABG HCO3 30.5 mmol/L (22.0-26.0); ABG OXYGEN SATURATION 99.5 % (94-97); ABG PCO2 (T) 83.8 mmHg (35.0-48.0); ABG PO2 (T) 297.2 mmHg (75.0-100.0); ALLEN'S TEST POSITIVE; FMetHb 0.4 % (0.0-1.5); FO2Hb 98.1 % (94-97); PEEP 5 cm H2O; RESPIRATORY RATE 10 b/min; TIDAL VOLUME 500 mL; TOTAL HEMOGLOBIN 13.1 G/dl (14.0-17.9)
[2023-03-21 15:08] LABS: ISTAT CREATININE 1.3 mg/dL (0.8-1.3); ISTAT HGB 14.3 g/dl (14.0-17.9); ISTAT IONIZED CALCIUM 1.1 mmol/L (1.03-1.32); ISTAT K 5.1 mmol/L (3.5-5.1); POC BUN/CREATININE RATIO 19.2 (5.4-32.0)
[2023-03-21 15:09] LABS: ALBUMIN 2.8 G/DL (3.4-5.0); ANION GAP 0 (8-16); BLOOD UREA NITROGEN 23 MG/DL (7-18); BUN/CREATININE RATIO 16.4 (10.0-20.0); CALCIUM 8.1 MG/DL (8.5-10.1); CHLORIDE 107 MMOL/L (99-107); GLUCOSE 131 MG/DL (70-104); POTASSIUM 5.3 MMOL/L (3.5-5.1); SODIUM 142 MMOL/L (135-145); TOTAL CARBON DIOXIDE 34.9 MMOL/L (24-32); eGFR 52 ML/MIN
[2023-03-21] MEDS: ondansetron/PF 4mg/2ml inj IV PRN (21:42)
[2023-03-22] VITALS (28 sets, daily range): BP systolic 78–121; BP diastolic 43–73
[2023-03-22] MEDS: diltiazem-NS 100mg/100ml 100 ML IV SCH (02:02)
[2023-03-22] MEDS: dextrose 5%-1/2 normal saline 1,000 ML IV SCH ×3 (02:02→16:45)
[2023-03-22] MEDS: ondansetron/PF 4mg/2ml inj IV PRN (05:47)
[2023-03-22 05:57] LABS: BASOPHILS # (AUTO) 0.2 X10'3 (0-0.2); BASOPHILS % (AUTO) 1.1 % (0-1); EOSINOPHILS # (AUTO) 0.1 X10'3 (0-0.9); EOSINOPHILS % (AUTO) 0.4 % (0-6); HEMATOCRIT 41.3 % (42.0-52.0); HEMOGLOBIN 12.5 g/dl (14.0-17.9); LYMPHOCYTES % (AUTO) 5.2 % (21-51); MEAN CORPUSCULAR HEMOGLOBIN 29.2 PG (27.0-31.0); MEAN CORPUSCULAR HGB CONC 30.2 g/dL (33.0-36.5); MEAN CORPUSCULAR VOLUME 96.8 FL (78-98); MEAN PLATELET VOLUME 7.4 FL (7.4-10.4); MONOCYTES # (AUTO) 1.5 X10'3 (0-0.9); NEUTROPHILS # (AUTO) 15.9 X10'3 (1.8-7.7); NEUTROPHILS % (AUTO) 85.3 % (42-75); PLATELET COUNT 300 X10'3 (140-440); RED BLOOD COUNT 4.26 X10'6 (4.70-6.10); RED CELL DISTRIBUTION WIDTH 23.3 % (11.5-14.5); WHITE BLOOD COUNT 18.6 X10'3 (4.5-11.0)
[2023-03-22 05:59] LABS: ANION GAP 3 (8-16); BLOOD UREA NITROGEN 28 MG/DL (7-18); BUN/CREATININE RATIO 14.8 (10.0-20.0); CALCIUM 7.9 MG/DL (8.5-10.1); CHLORIDE 105 MMOL/L (99-107); CREATININE 1.89 MG/DL (0.60-1.10); GLUCOSE 148 MG/DL (70-104); SODIUM 141 MMOL/L (135-145); TOTAL CARBON DIOXIDE 32.6 MMOL/L (24-32); eGFR 37 ML/MIN
[2023-03-22] MEDS ORDERED: furosemide 40mg/4ml inj IV ONE (06:20)
[2023-03-22] MEDS ORDERED: sodium polystyrene sulfonate 15gm/60ml oral suspension PO ONE ×2 (06:20→20:00)
[2023-03-22] MEDS ORDERED: dextrose 50%-water 50ml dispensing syringe IV ONE (06:20)
[2023-03-22] MEDS ORDERED: albuterol 2.5 MG/3 ML nebule NEB ONE (06:20)
[2023-03-22] MEDS ORDERED: insulin regular, human 10 units/0.1 ml syringe IV ONE (06:20)
[2023-03-22 07:08] LABS: ALANINE AMINOTRANSFERASE 17 U/L (12-78); ALBUMIN/GLOBULIN RATIO 0.8 (1.1-1.5); ALKALINE PHOSPHATASE 117 IU/L (46-116); ASPARTATE AMINO TRANSFERASE 23 U/L (10-37); BILIRUBIN,TOTAL 0.4 MG/DL (0.1-1.0); MAGNESIUM 2.2 MG/DL (1.5-2.4); PHOSPHORUS 6.3 MG/DL (2.3-4.5)
[2023-03-22 07:08] LABS: ANISOCYTOSIS 3+; PLATELET ESTIMATE NORMAL; TOTAL CELLS COUNTED 100
[2023-03-22 07:09] LABS: POIKILOCYTOSIS 1+; POLYCHROMASIA 1+
[2023-03-22 07:38] LABS: ABG BASE EXCESS -3.8 mmol/L (-2.0-2.0); ABG HCO3 28.7 mmol/L (22.0-26.0); ABG OXYGEN SATURATION 86.8 % (94-97); ALLEN'S TEST POSITIVE; FCOHb 1.1 % (0.0-3.9); FLOW 2 L/min; FMetHb 0.4 % (0.0-1.5); FO2Hb 85.5 % (94-97); TOTAL HEMOGLOBIN 13.3 G/dl (14.0-17.9)
[2023-03-22] MEDS: tamsulosin 0.4mg capsule PO SCH (08:00)
[2023-03-22] MEDS: docusate sod 100mg capsule PO SCH ×2 (08:00→21:34)
[2023-03-22] MEDS ORDERED: methylPREDNISolone sod succ 125mg/2ml vial IV ONE (08:45)
[2023-03-22] MEDS ORDERED: normal saline 1000ml 1,000 ML IV ONE (08:45)
[2023-03-22] MEDS: normal saline 1000ml 1,000 ML IV SCH ×2 (09:29→18:39)
[2023-03-22 09:33] LABS: ABG BASE EXCESS -4.1 mmol/L (-2.0-2.0); ABG HCO3 28.3 mmol/L (22.0-26.0); ABG OXYGEN SATURATION 95.3 % (94-97); ABG PCO2 (T) 97.6 mmHg (35.0-48.0); ABG PO2 (T) 83.5 mmHg (75.0-100.0); ALLEN'S TEST POSITIVE; FMetHb 0.6 % (0.0-1.5); FO2Hb 93.8 % (94-97); RESPIRATORY RATE 18 b/min; TIDAL VOLUME 600 mL; TOTAL HEMOGLOBIN 13.1 G/dl (14.0-17.9)
[2023-03-22 09:40] LABS: ANION GAP 2 (8-16); BLOOD UREA NITROGEN 30 MG/DL (7-18); BUN/CREATININE RATIO 15.4 (10.0-20.0); CALCIUM 7.8 MG/DL (8.5-10.1); CHLORIDE 106 MMOL/L (99-107); CREATININE 1.95 MG/DL (0.60-1.10); GLUCOSE 128 MG/DL (70-104); POTASSIUM 5.8 MMOL/L (3.5-5.1); SODIUM 138 MMOL/L (135-145); eGFR 35 ML/MIN
[2023-03-22] MEDS ORDERED: proCHLORperazine 10 MG/2 ml inj IV PRN (10:20)
[2023-03-22 11:27] LABS: ABG BASE EXCESS -4.6 mmol/L (-2.0-2.0); ABG HCO3 27.1 mmol/L (22.0-26.0); ABG OXYGEN SATURATION 92.3 % (94-97); ABG PCO2 (T) 88.7 mmHg (35.0-48.0); ABG PO2 (T) 69.5 mmHg (75.0-100.0); ALLEN'S TEST POSITIVE; FCOHb 1.1 % (0.0-3.9); FMetHb 0.5 % (0.0-1.5); FO2Hb 90.8 % (94-97); RESPIRATORY RATE 24 b/min; TIDAL VOLUME 335 mL; TOTAL HEMOGLOBIN 13.3 G/dl (14.0-17.9)
[2023-03-22] MEDS: ipratropium/albuterol 3ml nebule NEB SCH ×4 (11:29→23:04)
[2023-03-22] MEDS ORDERED: albuterol 2.5 MG/3 ML nebule NEB SCH (12:00)
[2023-03-22] MEDS: methylPREDNISolone sod succ/PF 40mg inj. IV SCH ×2 (14:27→21:05)
[2023-03-22] MEDS ORDERED: DEXMEDETOMIDINE IN 0.9 % NACL 50 ML IV SCH (14:35)
[2023-03-22] MEDS: dexmedetomidine inj. 400 MCG in normal saline 100ml IV soln 96 ML IV SCH ×2 (15:06→18:41)
[2023-03-22 17:54] LABS: ABG BASE EXCESS -5.1 mmol/L (-2.0-2.0); ABG OXYGEN SATURATION 92.2 % (94-97); ABG PCO2 (T) 73.2 mmHg (35.0-48.0); ABG PO2 (T) 67.9 mmHg (75.0-100.0); ALLEN'S TEST POSITIVE; FMetHb 0.4 % (0.0-1.5); FO2Hb 90.9 % (94-97); RESPIRATORY RATE 24 b/min; TIDAL VOLUME 591 mL; TOTAL HEMOGLOBIN 12.8 G/dl (14.0-17.9)
[2023-03-22 18:19] LABS: ALBUMIN 2.6 G/DL (3.4-5.0); ANION GAP 2 (8-16); BLOOD UREA NITROGEN 34 MG/DL (7-18); BUN/CREATININE RATIO 15.7 (10.0-20.0); CALCIUM 7.3 MG/DL (8.5-10.1); CHLORIDE 105 MMOL/L (99-107); CREATININE 2.16 MG/DL (0.60-1.10); GLUCOSE 147 MG/DL (70-104); SODIUM 136 MMOL/L (135-145); TOTAL CARBON DIOXIDE 29.1 MMOL/L (24-32); eGFR 31 ML/MIN
[2023-03-22 18:48] LABS: POTASSIUM 6.8 MMOL/L (3.5-5.1)
[2023-03-22] MEDS ORDERED: sodium bicarbonate (8.4%) inj. 150 MEQ in sodium chloride 0.45% 850 ML IV SCH (19:00)
[2023-03-22] MEDS ORDERED: sodium bicarbonate (8.4%) 1 mEq/ml syringe IV ONE (19:00)
[2023-03-22] MEDS ORDERED: levoFLOXACIN-Levaquin 750MG/D5 150 ML IV STA (19:07)
[2023-03-22] MEDS ORDERED: sodium bicarbonate (8.4%) inj. 1 MEQ/ML ML ONE (19:23)
[2023-03-22] MEDS ORDERED: vancomycin 1,750 MG in NS 350ml IV soln IV ONE (20:00)
[2023-03-22] MEDS: aztreonam inj. 1,000 MG in normal saline 100ml IV soln 100 ML IV SCH (20:58)
[2023-03-22] MEDS: NORepinephrine 8mg/ 250ml NS 250 ML IV SCH (21:08)
[2023-03-22] MEDS ORDERED: sodium bicarbonate (8.4%) inj. 150 MEQ in sodium chloride 0.45% 1,000 ML IV SCH (21:15)
[2023-03-22 21:46] LABS: CLARITY,URINE CLOUDY (Clear); COLOR,URINE AMBER (Yellow); GLUCOSE, URINE NEGATIVE (Neg); KETONES,URINE NEGATIVE (Neg); LEUKOCYTE ESTERASE ,URINE TRACE (Neg); OCCULT BLOOD,URINE LARGE (Neg); PH,URINE 5.5 (4.8-8.0); PROTEIN,URINE 100 mg/dl (Neg); UROBILINOGEN,URINE 0.2 E.U/dL (0.2-1.0)
[2023-03-22] MEDS: SODIUM BICARB 150mEq/D5W 1L 1,000 ML IV SCH (22:04)
[2023-03-22 22:06] LABS: UA COLLECTION TYPE NON-SPECIFIED
[2023-03-22 22:09] LABS: NITRITES, URINE NEGATIVE (Neg)
[2023-03-22 22:20] LABS: BACTERIA,URINE 2+ /HPF (Neg); RBC,URINE TNTC /HPF (0-2); SQUAMOUS EPITHELIAL CELL,UR FEW /LPF (FEW); WBC,URINE TNTC /HPF (0-4)
[2023-03-22 22:21] LABS: HYALINE CASTS 0-3 /LPF (NEGATIVE); MUCUS STRANDS FEW /LPF (Neg)
[2023-03-23] VITALS (36 sets, daily range): BP systolic 87–143; BP diastolic 44–86
[2023-03-23] MEDS: dexmedetomidine inj. 400 MCG in normal saline 100ml IV soln 96 ML IV SCH ×2 (00:07→03:22)
[2023-03-23 01:54] LABS: BASOPHILS % (AUTO) 0.3 % (0-1); EOSINOPHILS % (AUTO) 0 % (0-6); LYMPHOCYTES # (AUTO) 0.4 X10'3 (1.1-4.8); LYMPHOCYTES % (AUTO) 2.8 % (21-51); MONOCYTES # (AUTO) 0.2 X10'3 (0-0.9); MONOCYTES % (AUTO) 1.2 % (2-12); NEUTROPHILS # (AUTO) 14.8 X10'3 (1.8-7.7); NEUTROPHILS % (AUTO) 95.7 % (42-75)
[2023-03-23 02:00] LABS: ALBUMIN 2.6 G/DL (3.4-5.0); ANION GAP 2 (8-16); BLOOD UREA NITROGEN 41 MG/DL (7-18); BUN/CREATININE RATIO 17.1 (10.0-20.0); CALCIUM 7.2 MG/DL (8.5-10.1); CHLORIDE 104 MMOL/L (99-107); GLUCOSE 258 MG/DL (70-104); MAGNESIUM 1.9 MG/DL (1.5-2.4); SODIUM 137 MMOL/L (135-145); TOTAL CARBON DIOXIDE 31.1 MMOL/L (24-32); eGFR 28 ML/MIN
[2023-03-23] MEDS ORDERED: rocuronium 10mg/ml inj IV ONE ×2 (02:00→02:40)
[2023-03-23] MEDS ORDERED: etomidate 2mg/ml inj. ONE (02:00)
[2023-03-23 02:03] LABS: POTASSIUM 6.5 MMOL/L (3.5-5.1)
[2023-03-23] MEDS: methylPREDNISolone sod succ/PF 40mg inj. IV SCH ×4 (02:08→20:43)
[2023-03-23 02:09] LABS: ABG BASE EXCESS -1.7 mmol/L (-2.0-2.0); ABG HCO3 28.8 mmol/L (22.0-26.0); ABG OXYGEN SATURATION 93.4 % (94-97); ABG PO2 (T) 74.3 mmHg (75.0-100.0); ALLEN'S TEST POSITIVE; FCOHb 0.9 % (0.0-3.9); FMetHb 0.4 % (0.0-1.5); FO2Hb 92.2 % (94-97); PATIENT TEMPERATURE 36.6; RESPIRATORY RATE 24 b/min; TOTAL HEMOGLOBIN 13.7 G/dl (14.0-17.9)
[2023-03-23] MEDS: sodium polystyrene sulfonate 15gm/60ml oral suspension PO SCH ×2 (02:10→08:07)
[2023-03-23] MEDS ORDERED: etomidate 2mg/ml inj. IV ONE (02:40)
[2023-03-23] MEDS ORDERED: FENTANYL-0.9 % NACL/PF 100 ML IV PRN (02:50)
[2023-03-23] MEDS: propofol 1000mg/100ml bottle 100 ML IV SCH ×5 (02:50→20:41)
[2023-03-23] MEDS: ipratropium/albuterol 3ml nebule NEB SCH ×6 (03:16→23:21)
[2023-03-23] MEDS: FENTANYL-0.9 % NACL/PF 100 ML IV PRN ×2 (03:23→17:53)
[2023-03-23 03:35] LABS: ABG BASE EXCESS 0.7 mmol/L (-2.0-2.0); ABG HCO3 25.5 mmol/L (22.0-26.0); ABG OXYGEN SATURATION 92.6 % (94-97); ABG PCO2 (T) 39.6 mmHg (35.0-48.0); ABG PO2 (T) 55.2 mmHg (75.0-100.0); ALLEN'S TEST POSITIVE; FCOHb 1.1 % (0.0-3.9); FMetHb 0.3 % (0.0-1.5); FO2Hb 91.3 % (94-97); PATIENT TEMPERATURE 35.8; PEEP 5 cm H2O; RESPIRATORY RATE 24 b/min; TIDAL VOLUME 500 mL; TOTAL HEMOGLOBIN 14.1 G/dl (14.0-17.9)
[2023-03-23 03:36] LABS: WHITE BLOOD COUNT 15.7 X10'3 (4.5-11.0)
[2023-03-23 03:37] LABS: HEMATOCRIT 37.3 % (42.0-52.0); RED BLOOD COUNT 4.07 X10'6 (4.70-6.10)
[2023-03-23 03:38] LABS: MEAN CORPUSCULAR HEMOGLOBIN 29.4 PG (27.0-31.0); MEAN CORPUSCULAR HGB CONC 32.1 g/dL (33.0-36.5); MEAN CORPUSCULAR VOLUME 91.6 FL (78-98); RED CELL DISTRIBUTION WIDTH 22.2 % (11.5-14.5)
[2023-03-23 03:39] LABS: MEAN PLATELET VOLUME 7.6 FL (7.4-10.4); PLATELET COUNT 287 X10'3 (140-440)
[2023-03-23] MEDS ORDERED: DEXTROSE 15 GM of carb/4 tabs (each vial/BOTTLE has 4 tablets) PO PRN ×2 (03:45)
[2023-03-23] MEDS ORDERED: glucagon, human recombinant 1mg kit SUBCUT PRN (03:45)
[2023-03-23] MEDS ORDERED: dextrose 50%-water 50ml dispensing syringe IV PRN (03:45)
[2023-03-23] MEDS ORDERED: MESSAGE TO PHARMACY PO ONE (03:45)
[2023-03-23] MEDS: diltiazem-NS 100mg/100ml 100 ML IV SCH (03:48)
[2023-03-23] MEDS: aztreonam inj. 1,000 MG in normal saline 100ml IV soln 100 ML IV SCH ×3 (03:51→20:42)
[2023-03-23 03:57] LABS: TOTAL CELLS COUNTED 100
[2023-03-23 03:58] LABS: ANISOCYTOSIS 3+; PLATELET ESTIMATE NORMAL
[2023-03-23 04:02] LABS: POIKILOCYTOSIS 1+
[2023-03-23] MEDS: insulin Lispro (HumaLOG) vial - multi-dose SQ SCH ×2 (04:10→08:19)
[2023-03-23] MEDS: SODIUM BICARB 150mEq/D5W 1L 1,000 ML IV SCH ×2 (05:23→05:42)
[2023-03-23 05:25] LABS: HEMOGLOBIN A1C 5.7 % (4.5-6.2)
[2023-03-23 05:27] LABS: ALBUMIN 2.5 G/DL (3.4-5.0); ANION GAP 8 (8-16); BLOOD UREA NITROGEN 46 MG/DL (7-18); BUN/CREATININE RATIO 18.7 (10.0-20.0); CALCIUM 7.1 MG/DL (8.5-10.1); CHLORIDE 102 MMOL/L (99-107); CREATININE 2.46 MG/DL (0.60-1.10); GLUCOSE 293 MG/DL (70-104); POTASSIUM 5.7 MMOL/L (3.5-5.1); SODIUM 137 MMOL/L (135-145); TOTAL CARBON DIOXIDE 27.4 MMOL/L (24-32); eGFR 27 ML/MIN
[2023-03-23] MEDS: docusate sod 100mg capsule PO SCH (07:08)
[2023-03-23 07:22] LABS: ABG BASE EXCESS 4.4 mmol/L (-2.0-2.0); ABG HCO3 26.5 mmol/L (22.0-26.0); ABG OXYGEN SATURATION 93.3 % (94-97); ABG PCO2 (T) 29.8 mmHg (35.0-48.0); ABG PO2 (T) 50.1 mmHg (75.0-100.0); ALLEN'S TEST Yes; FCOHb 0.8 % (0.0-3.9); FMetHb 0.2 % (0.0-1.5); FO2Hb 92.4 % (94-97); PATIENT TEMPERATURE 35.7; PEEP 5 cm H2O; RESPIRATORY RATE 24 b/min; TIDAL VOLUME 500 mL; TOTAL HEMOGLOBIN 12.5 G/dl (14.0-17.9)
[2023-03-23] MEDS: NORepinephrine 8mg/ 250ml NS 250 ML IV SCH ×2 (07:39→19:03)
[2023-03-23] MEDS: tamsulosin 0.4mg capsule PO SCH (08:07)
[2023-03-23 08:44] LABS: ALANINE AMINOTRANSFERASE 13 U/L (12-78); ALBUMIN 2.3 G/DL (3.4-5.0); ALBUMIN/GLOBULIN RATIO 0.8 (1.1-1.5); ALKALINE PHOSPHATASE 92 IU/L (46-116); ANION GAP 5 (8-16); ASPARTATE AMINO TRANSFERASE 12 U/L (10-37); BILIRUBIN,TOTAL 0.6 MG/DL (0.1-1.0); BLOOD UREA NITROGEN 48 MG/DL (7-18); BUN/CREATININE RATIO 19.6 (10.0-20.0); CALCIUM 7.1 MG/DL (8.5-10.1); CHLORIDE 103 MMOL/L (99-107); CREATININE 2.45 MG/DL (0.60-1.10); GLUCOSE 283 MG/DL (70-104); PHOSPHORUS 3.8 MG/DL (2.3-4.5); POTASSIUM 4.8 MMOL/L (3.5-5.1); SODIUM 138 MMOL/L (135-145); TOTAL CARBON DIOXIDE 29.7 MMOL/L (24-32); TOTAL PROTEIN 5.3 G/DL (6.4-8.2); eGFR 27 ML/MIN
[2023-03-23] MEDS: normal saline 1000ml 1,000 ML IV SCH (10:15)
[2023-03-23 10:23] LABS: MAGNESIUM 1.9 MG/DL (1.5-2.4)
[2023-03-23 11:41] LABS: ABG BASE EXCESS 3.9 mmol/L (-2.0-2.0); ABG HCO3 29.3 mmol/L (22.0-26.0); ABG OXYGEN SATURATION 95.1 % (94-97); ABG PCO2 (T) 44.7 mmHg (35.0-48.0); ABG PO2 (T) 71.9 mmHg (75.0-100.0); ALLEN'S TEST POSITIVE; FCOHb 0.2 % (0.0-3.9); FMetHb 0.3 % (0.0-1.5); FO2Hb 94.6 % (94-97); PATIENT TEMPERATURE 35.8; PEEP 5 cm H2O; RESPIRATORY RATE 18 b/min; TIDAL VOLUME 400 mL; TOTAL HEMOGLOBIN 12.7 G/dl (14.0-17.9)
[2023-03-23 11:52] LABS: BILIRUBIN,DIRECT 0.2 MG/DL (0-0.3)
[2023-03-23] MEDS ORDERED: acetaminophen 325mg/10.15ml oral unit dose solution OGT PRN ×2 (13:52→13:53)
[2023-03-23] MEDS ORDERED: DEXTROSE 15 GM of carb/4 tabs (each vial/BOTTLE has 4 tablets) OGT PRN ×2 (13:53)
[2023-03-23] MEDS ORDERED: mag hydrox/Alum hydrox/simeth 30ml oral suspension OGT PRN (13:55)
[2023-03-23] MEDS ORDERED: magnesium hydroxide 30ml (MOM) UD suspension OGT PRN (13:55)
[2023-03-23] MEDS: nystatin 15 GM powder TP SCH ×2 (14:07→21:45)
[2023-03-23] MEDS: insulin regular, human U-100 3ml vial - multi-dose SQ SCH ×2 (14:16→19:39)
[2023-03-23 15:15] LABS: ALBUMIN 2.4 G/DL (3.4-5.0); ANION GAP 8 (8-16); BLOOD UREA NITROGEN 50 MG/DL (7-18); BUN/CREATININE RATIO 20.2 (10.0-20.0); CALCIUM 7.5 MG/DL (8.5-10.1); CHLORIDE 102 MMOL/L (99-107); CREATININE 2.48 MG/DL (0.60-1.10); GLUCOSE 215 MG/DL (70-104); MAGNESIUM 1.8 MG/DL (1.5-2.4); PHOSPHORUS 4.4 MG/DL (2.3-4.5); POTASSIUM 4.7 MMOL/L (3.5-5.1); SODIUM 140 MMOL/L (135-145); TOTAL CARBON DIOXIDE 29.8 MMOL/L (24-32); eGFR 27 ML/MIN
[2023-03-23] MEDS: vancomycin/NS 1 GM ADD-VANTAGE 250 ML IV SCH (20:40)
[2023-03-23] MEDS: docusate sodium 100mg/10ml UD cup OGT SCH (20:42)
[2023-03-23] MEDS: amiodarone 200mg tablet OGT SCH (20:42)
[2023-03-23] MEDS: apixaban 5mg tablet OGT SCH (20:42)
[2023-03-23] MEDS: furosemide 40mg/4ml inj IV SCH (20:43)
[2023-03-23] MEDS: insulin glargine (Lantus) pen - multi-dose SQ SCH (20:53)
[2023-03-24] VITALS (36 sets, daily range): BP systolic 97–128; BP diastolic 50–77
[2023-03-24] MEDS: propofol 1000mg/100ml bottle 100 ML IV SCH ×5 (01:03→23:00)
[2023-03-24] MEDS: methylPREDNISolone sod succ/PF 40mg inj. IV SCH ×4 (01:52→20:17)
[2023-03-24] MEDS: insulin regular, human U-100 3ml vial - multi-dose SQ SCH ×4 (02:06→20:22)
[2023-03-24 02:23] LABS: BASOPHILS % (AUTO) 0.1 % (0-1); EOSINOPHILS % (AUTO) 0 % (0-6); HEMATOCRIT 36.7 % (42.0-52.0); HEMOGLOBIN 11.3 g/dl (14.0-17.9); LYMPHOCYTES # (AUTO) 0.3 X10'3 (1.1-4.8); LYMPHOCYTES % (AUTO) 1.5 % (21-51); MEAN CORPUSCULAR HEMOGLOBIN 28.1 PG (27.0-31.0); MEAN CORPUSCULAR HGB CONC 30.9 g/dL (33.0-36.5); MEAN CORPUSCULAR VOLUME 91.1 FL (78-98); MEAN PLATELET VOLUME 7.4 FL (7.4-10.4); MONOCYTES # (AUTO) 0.4 X10'3 (0-0.9); MONOCYTES % (AUTO) 2.4 % (2-12); NEUTROPHILS # (AUTO) 16.9 X10'3 (1.8-7.7); PLATELET COUNT 298 X10'3 (140-440); RED BLOOD COUNT 4.03 X10'6 (4.70-6.10); RED CELL DISTRIBUTION WIDTH 22.8 % (11.5-14.5); WHITE BLOOD COUNT 17.6 X10'3 (4.5-11.0)
[2023-03-24 02:38] LABS: ALANINE AMINOTRANSFERASE 12 U/L (12-78); ALBUMIN 2.4 G/DL (3.4-5.0); ALBUMIN/GLOBULIN RATIO 0.8 (1.1-1.5); ALKALINE PHOSPHATASE 89 IU/L (46-116); ANION GAP 4 (8-16); ASPARTATE AMINO TRANSFERASE 15 U/L (10-37); BILIRUBIN,TOTAL 0.5 MG/DL (0.1-1.0); BLOOD UREA NITROGEN 54 MG/DL (7-18); CALCIUM 7.6 MG/DL (8.5-10.1); CHLORIDE 103 MMOL/L (99-107); CREATININE 2.46 MG/DL (0.60-1.10); GLUCOSE 176 MG/DL (70-104); MAGNESIUM 1.9 MG/DL (1.5-2.4); PHOSPHORUS 4.3 MG/DL (2.3-4.5); POTASSIUM 4.4 MMOL/L (3.5-5.1); SODIUM 141 MMOL/L (135-145); TOTAL CARBON DIOXIDE 33.6 MMOL/L (24-32); TOTAL PROTEIN 5.6 G/DL (6.4-8.2); TRIGLYCERIDES 71 MG/DL (20-135); eGFR 27 ML/MIN
[2023-03-24 02:43] LABS: ABG BASE EXCESS 1.7 mmol/L (-2.0-2.0); ABG HCO3 27.4 mmol/L (22.0-26.0); ABG OXYGEN SATURATION 95.4 % (94-97); ABG PCO2 (T) 46.3 mmHg (35.0-48.0); ABG PO2 (T) 78.4 mmHg (75.0-100.0); ALLEN'S TEST POSITIVE; FMetHb 0.5 % (0.0-1.5); FO2Hb 94.9 % (94-97); PATIENT TEMPERATURE 36.6; PEEP 5 cm H2O; RESPIRATORY RATE 18 b/min; TIDAL VOLUME 400 mL; TOTAL HEMOGLOBIN 12.4 G/dl (14.0-17.9)
[2023-03-24] MEDS: FENTANYL-0.9 % NACL/PF 100 ML IV PRN ×3 (03:08→21:42)
[2023-03-24 03:11] LABS: ANISOCYTOSIS 3+; ELLIPTOCYTES 1+; PLATELET ESTIMATE NORMAL; TEAR DROP CELLS FEW
[2023-03-24] MEDS: aztreonam inj. 1,000 MG in normal saline 100ml IV soln 100 ML IV SCH ×3 (04:18→20:17)
[2023-03-24] MEDS: normal saline 1000ml 1,000 ML IV SCH (05:26)
[2023-03-24] MEDS: NORepinephrine 8mg/ 250ml NS 250 ML IV SCH ×2 (06:27→17:51)
[2023-03-24] MEDS: ipratropium/albuterol 3ml nebule NEB SCH ×5 (07:16→23:25)
[2023-03-24] MEDS: docusate sodium 100mg/10ml UD cup OGT SCH ×2 (07:27→20:14)
[2023-03-24] MEDS: amiodarone 200mg tablet OGT SCH ×2 (07:29→20:14)
[2023-03-24] MEDS: furosemide 40mg/4ml inj IV SCH (07:29)
[2023-03-24] MEDS: apixaban 5mg tablet OGT SCH ×2 (07:29→20:14)
[2023-03-24] MEDS: nystatin 15 GM powder TP SCH ×3 (08:00→20:33)
[2023-03-24] MEDS: tamsulosin 0.4mg capsule PO SCH (08:00)
[2023-03-24] MEDS: vancomycin/NS 1 GM ADD-VANTAGE 250 ML IV SCH (20:17)
[2023-03-24] MEDS: insulin glargine (Lantus) pen - multi-dose SQ SCH (20:25)
[2023-03-25] VITALS (36 sets, daily range): BP systolic 92–125; BP diastolic 51–78
[2023-03-25] MEDS ORDERED: albumin (human) 25% 100 ML IV solution IV ONE (00:30)
[2023-03-25] MEDS ORDERED: furosemide 10 MG/1 ML 10ml inj IV ONE (00:30)
[2023-03-25] MEDS: methylPREDNISolone sod succ/PF 40mg inj. IV SCH ×4 (02:12→20:02)
[2023-03-25] MEDS: propofol 1000mg/100ml bottle 100 ML IV SCH ×6 (02:12→22:54)
[2023-03-25] MEDS: normal saline 1000ml 1,000 ML IV SCH ×2 (02:15→22:15)
[2023-03-25 02:40] LABS: ABG BASE EXCESS 4.5 mmol/L (-2.0-2.0); ABG HCO3 27.9 mmol/L (22.0-26.0); ABG OXYGEN SATURATION 94.8 % (94-97); ABG PCO2 (T) 36.9 mmHg (35.0-48.0); ABG PO2 (T) 72.4 mmHg (75.0-100.0); ALLEN'S TEST POSITIVE; FMetHb 0.4 % (0.0-1.5); FO2Hb 94.4 % (94-97); PEEP 5 cm H2O; RESPIRATORY RATE 18 b/min; TIDAL VOLUME 400 mL
[2023-03-25] MEDS: ipratropium/albuterol 3ml nebule NEB SCH ×6 (02:43→23:09)
[2023-03-25] MEDS: insulin regular, human U-100 3ml vial - multi-dose SQ SCH ×3 (02:46→20:18)
[2023-03-25 03:55] LABS: BASOPHILS % (AUTO) 0.1 % (0-1); EOSINOPHILS % (AUTO) 0 % (0-6); HEMATOCRIT 33.3 % (42.0-52.0); HEMOGLOBIN 10.7 g/dl (14.0-17.9); LYMPHOCYTES # (AUTO) 0.4 X10'3 (1.1-4.8); LYMPHOCYTES % (AUTO) 2.8 % (21-51); MEAN CORPUSCULAR HEMOGLOBIN 29.1 PG (27.0-31.0); MEAN CORPUSCULAR VOLUME 90.9 FL (78-98); MEAN PLATELET VOLUME 7.6 FL (7.4-10.4); MONOCYTES # (AUTO) 0.3 X10'3 (0-0.9); MONOCYTES % (AUTO) 2.4 % (2-12); NEUTROPHILS # (AUTO) 13.4 X10'3 (1.8-7.7); NEUTROPHILS % (AUTO) 94.7 % (42-75); PLATELET COUNT 213 X10'3 (140-440); RED BLOOD COUNT 3.66 X10'6 (4.70-6.10); RED CELL DISTRIBUTION WIDTH 22.8 % (11.5-14.5); WHITE BLOOD COUNT 14.1 X10'3 (4.5-11.0)
[2023-03-25 04:13] LABS: ALANINE AMINOTRANSFERASE 6 U/L (12-78); ALBUMIN/GLOBULIN RATIO 1.2 (1.1-1.5); ALKALINE PHOSPHATASE 70 IU/L (46-116); ANION GAP 4 (8-16); ASPARTATE AMINO TRANSFERASE 14 U/L (10-37); BILIRUBIN,TOTAL 0.5 MG/DL (0.1-1.0); BLOOD UREA NITROGEN 59 MG/DL (7-18); BUN/CREATININE RATIO 31.1 (10.0-20.0); CHLORIDE 104 MMOL/L (99-107); GLUCOSE 182 MG/DL (70-104); LACTATE DEHYDROGENASE 116 U/L (85-227); MAGNESIUM 1.9 MG/DL (1.5-2.4); PHOSPHORUS 3.4 MG/DL (2.3-4.5); POTASSIUM 3.6 MMOL/L (3.5-5.1); PREALBUMIN 18.6 MG/DL (19-36); SODIUM 142 MMOL/L (135-145); TOTAL CARBON DIOXIDE 33.9 MMOL/L (24-32); TOTAL PROTEIN 5.6 G/DL (6.4-8.2); eGFR 36 ML/MIN
[2023-03-25] MEDS: aztreonam inj. 1,000 MG in normal saline 100ml IV soln 100 ML IV SCH ×3 (04:20→20:05)
[2023-03-25] MEDS: FENTANYL-0.9 % NACL/PF 100 ML IV PRN ×3 (04:44→20:07)
[2023-03-25 05:03] LABS: RHEUM FACTOR QUAL REFLEX TITER NEGATIVE (Neg)
[2023-03-25] MEDS: NORepinephrine 8mg/ 250ml NS 250 ML IV SCH ×2 (05:15→16:39)
[2023-03-25] MEDS: apixaban 5mg tablet OGT SCH ×2 (07:29→20:02)
[2023-03-25] MEDS: docusate sodium 100mg/10ml UD cup OGT SCH ×2 (07:29→20:02)
[2023-03-25 07:58] LABS: ANISOCYTOSIS 3+; PLATELET ESTIMATE NORMAL
[2023-03-25] MEDS: amiodarone 200mg tablet OGT SCH ×2 (08:15→20:02)
[2023-03-25] MEDS: nystatin 15 GM powder TP SCH ×3 (08:15→20:21)
[2023-03-25] MEDS: furosemide 40mg/4ml inj IV SCH ×3 (10:26→20:02)
[2023-03-25 11:04] LABS: ABG BASE EXCESS 3.3 mmol/L (-2.0-2.0); ABG HCO3 30.6 mmol/L (22.0-26.0); ABG OXYGEN SATURATION 96.6 % (94-97); ABG PCO2 (T) 58.4 mmHg (35.0-48.0); ABG PO2 (T) 89.9 mmHg (75.0-100.0); ALLEN'S TEST POSITIVE; FCOHb 0.3 % (0.0-3.9); FMetHb 0.5 % (0.0-1.5); FO2Hb 95.8 % (94-97); PATIENT TEMPERATURE 36.5; PEEP 5 cm H2O; TIDAL VOLUME 450 mL; TOTAL HEMOGLOBIN 12.4 G/dl (14.0-17.9)
[2023-03-25] MEDS ORDERED: mineral oil/petrolatum ophthal oint EACHEYE PRN (17:45)
[2023-03-25] MEDS ORDERED: VANCOMYCIN LEVEL IV ONE (19:30)
[2023-03-25] MEDS: insulin glargine (Lantus) pen - multi-dose SQ SCH (20:21)
[2023-03-25] MEDS: vancomycin/NS 1 GM ADD-VANTAGE 250 ML IV SCH (21:35)
[2023-03-26] VITALS (32 sets, daily range): BP systolic 86–119; BP diastolic 46–79
[2023-03-26] MEDS: FENTANYL-0.9 % NACL/PF 100 ML IV PRN (02:03)
[2023-03-26] MEDS: propofol 1000mg/100ml bottle 100 ML IV SCH ×2 (02:04→05:53)
[2023-03-26] MEDS: furosemide 40mg/4ml inj IV SCH ×3 (02:19→20:10)
[2023-03-26] MEDS: methylPREDNISolone sod succ/PF 40mg inj. IV SCH ×4 (02:19→20:10)
[2023-03-26] MEDS: insulin regular, human U-100 3ml vial - multi-dose SQ SCH ×2 (02:38→07:30)
[2023-03-26 03:34] LABS: HEMOGLOBIN 11.3 g/dl (14.0-17.9); WHITE BLOOD COUNT 13.1 X10'3 (4.5-11.0)
[2023-03-26 03:35] LABS: BASOPHILS % (AUTO) 0.1 % (0-1); EOSINOPHILS % (AUTO) 0 % (0-6); HEMATOCRIT 36.2 % (42.0-52.0); LYMPHOCYTES # (AUTO) 0.3 X10'3 (1.1-4.8); LYMPHOCYTES % (AUTO) 2.1 % (21-51); MEAN CORPUSCULAR HEMOGLOBIN 28.7 PG (27.0-31.0); MEAN CORPUSCULAR HGB CONC 31.2 g/dL (33.0-36.5); MEAN PLATELET VOLUME 7.6 FL (7.4-10.4); MONOCYTES # (AUTO) 0.2 X10'3 (0-0.9); MONOCYTES % (AUTO) 1.7 % (2-12); NEUTROPHILS # (AUTO) 12.6 X10'3 (1.8-7.7); NEUTROPHILS % (AUTO) 96.1 % (42-75); PLATELET COUNT 166 X10'3 (140-440); RED BLOOD COUNT 3.94 X10'6 (4.70-6.10); RED CELL DISTRIBUTION WIDTH 22.3 % (11.5-14.5)
[2023-03-26 03:36] LABS: ALANINE AMINOTRANSFERASE 9 U/L (12-78); ALBUMIN 2.6 G/DL (3.4-5.0); ALKALINE PHOSPHATASE 73 IU/L (46-116); ANION GAP 4 (8-16); ASPARTATE AMINO TRANSFERASE 10 U/L (10-37); BILIRUBIN,TOTAL 0.4 MG/DL (0.1-1.0); BLOOD UREA NITROGEN 63 MG/DL (7-18); CALCIUM 7.5 MG/DL (8.5-10.1); CHLORIDE 104 MMOL/L (99-107); CREATININE 1.66 MG/DL (0.60-1.10); GLUCOSE 210 MG/DL (70-104); MAGNESIUM 1.6 MG/DL (1.5-2.4); PHOSPHORUS 4.6 MG/DL (2.3-4.5); POTASSIUM 3.4 MMOL/L (3.5-5.1); SODIUM 143 MMOL/L (135-145); TOTAL CARBON DIOXIDE 35.5 MMOL/L (24-32); TOTAL PROTEIN 5.3 G/DL (6.4-8.2); eGFR 42 ML/MIN
[2023-03-26] MEDS: ipratropium/albuterol 3ml nebule NEB SCH ×6 (03:49→22:57)
[2023-03-26] MEDS: NORepinephrine 8mg/ 250ml NS 250 ML IV SCH ×2 (04:03→15:27)
[2023-03-26 04:04] LABS: ABG BASE EXCESS 7.2 mmol/L (-2.0-2.0); ABG HCO3 33.8 mmol/L (22.0-26.0); ABG OXYGEN SATURATION 95.7 % (94-97); ABG PO2 (T) 81.2 mmHg (75.0-100.0); ALLEN'S TEST Modified; FCOHb 0.5 % (0.0-3.9); FMetHb 0.5 % (0.0-1.5); FO2Hb 94.7 % (94-97); PATIENT TEMPERATURE 36.4; PEEP 5 cm H2O; RESPIRATORY RATE 14 b/min; TIDAL VOLUME 400 mL; TOTAL HEMOGLOBIN 12.4 G/dl (14.0-17.9)
[2023-03-26] MEDS: aztreonam inj. 1,000 MG in normal saline 100ml IV soln 100 ML IV SCH ×3 (04:39→20:09)
[2023-03-26] MEDS ORDERED: potassium Cl 20 mEq SR tablet PO PRN (05:10)
[2023-03-26] MEDS ORDERED: potassium Cl 40MEQ/1/2NS 520ml 520 ML IV PRN (05:10)
[2023-03-26] MEDS: potassium Cl 40MEQ/270ML bag 270 ML IV PRN ×2 (05:38→20:09)
[2023-03-26] MEDS: apixaban 5mg tablet OGT SCH ×2 (07:34→20:10)
[2023-03-26] MEDS: pantoprazole 40MG/NS 100ML BAG 100 ML IV SCH (07:34)
[2023-03-26] MEDS: docusate sodium 100mg/10ml UD cup OGT SCH ×2 (07:34→20:00)
[2023-03-26] MEDS: amiodarone 200mg tablet OGT SCH ×2 (07:34→20:12)
[2023-03-26] MEDS: nystatin 15 GM powder TP SCH ×3 (07:43→21:29)
[2023-03-26] MEDS ORDERED: vancomycin/NS 1 GM ADD-VANTAGE 250 ML X 1 DOSE IV SCH (08:00)
[2023-03-26] MEDS ORDERED: VANCOMYCIN LEVEL IV ONE (08:30)
[2023-03-26] MEDS: vancomycin/NS 1 GM ADD-VANTAGE 250 ML X 1 DOSE IV SCH ×2 (09:03→21:29)
[2023-03-26 10:51] LABS: ABG BASE EXCESS 8.5 mmol/L (-2.0-2.0); ABG OXYGEN SATURATION 95.3 % (94-97); ABG PO2 (T) 79.7 mmHg (75.0-100.0); ALLEN'S TEST POSITIVE; FCOHb 0.2 % (0.0-3.9); FMetHb 0.5 % (0.0-1.5); FO2Hb 94.6 % (94-97); PATIENT TEMPERATURE 36.2; PEEP 5 cm H2O; TIDAL VOLUME 460 mL; TOTAL HEMOGLOBIN 12.7 G/dl (14.0-17.9)
[2023-03-26 14:35] LABS: ANTINUCLEAR ANTIBODIES Negative (Negative); COMPLEMENT C3, SERUM 91 mg/dL (82-167); COMPLEMENT C4, SERUM 15 mg/dL (12-38)
[2023-03-26 15:40] LABS: ABG BASE EXCESS 7.7 mmol/L (-2.0-2.0); ABG HCO3 35.4 mmol/L (22.0-26.0); ABG OXYGEN SATURATION 96.3 % (94-97); ABG PCO2 (T) 62.8 mmHg (35.0-48.0); ABG PO2 (T) 85.5 mmHg (75.0-100.0); ALLEN'S TEST POSITIVE; FCOHb 0.5 % (0.0-3.9); FMetHb 0.5 % (0.0-1.5); FO2Hb 95.3 % (94-97); PATIENT TEMPERATURE 36.5; PEEP 5 cm H2O; TIDAL VOLUME 415 mL; TOTAL HEMOGLOBIN 13.2 G/dl (14.0-17.9)
[2023-03-26] MEDS: insulin Lispro (HumaLOG) vial - multi-dose SQ SCH (20:26)
[2023-03-26] MEDS: insulin glargine (Lantus) pen - multi-dose SQ SCH (20:27)
[2023-03-26] MEDS: ondansetron/PF 4mg/2ml inj IV PRN (21:29)
[2023-03-27] VITALS (17 sets, daily range): BP systolic 89–119; BP diastolic 48–79
[2023-03-27] MEDS: methylPREDNISolone sod succ/PF 40mg inj. IV SCH ×4 (01:26→19:44)
[2023-03-27] MEDS: NORepinephrine 8mg/ 250ml NS 250 ML IV SCH (01:41)
[2023-03-27 01:52] LABS: BASOPHILS % (AUTO) 0.2 % (0-1); EOSINOPHILS % (AUTO) 0 % (0-6); HEMATOCRIT 36.8 % (42.0-52.0); HEMOGLOBIN 11.4 g/dl (14.0-17.9); LYMPHOCYTES # (AUTO) 0.2 X10'3 (1.1-4.8); LYMPHOCYTES % (AUTO) 2.1 % (21-51); MEAN CORPUSCULAR VOLUME 93.4 FL (78-98); MEAN PLATELET VOLUME 7.8 FL (7.4-10.4); MONOCYTES # (AUTO) 0.2 X10'3 (0-0.9); MONOCYTES % (AUTO) 1.7 % (2-12); NEUTROPHILS # (AUTO) 10.7 X10'3 (1.8-7.7); PLATELET COUNT 129 X10'3 (140-440); RED BLOOD COUNT 3.94 X10'6 (4.70-6.10); WHITE BLOOD COUNT 11.1 X10'3 (4.5-11.0)
[2023-03-27 02:00] LABS: ALANINE AMINOTRANSFERASE 12 U/L (12-78); ALBUMIN 2.6 G/DL (3.4-5.0); ALKALINE PHOSPHATASE 71 IU/L (46-116); ANION GAP 3 (8-16); ASPARTATE AMINO TRANSFERASE 13 U/L (10-37); BILIRUBIN,TOTAL 0.4 MG/DL (0.1-1.0); BLOOD UREA NITROGEN 70 MG/DL (7-18); BUN/CREATININE RATIO 47.9 (10.0-20.0); CALCIUM 6.7 MG/DL (8.5-10.1); CHLORIDE 111 MMOL/L (99-107); CREATININE 1.46 MG/DL (0.60-1.10); GLUCOSE 122 MG/DL (70-104); MAGNESIUM 1.7 MG/DL (1.5-2.4); PHOSPHORUS 5.2 MG/DL (2.3-4.5); POTASSIUM 3.5 MMOL/L (3.5-5.1); SODIUM 148 MMOL/L (135-145); TOTAL CARBON DIOXIDE 34.3 MMOL/L (24-32); TOTAL PROTEIN 5.3 G/DL (6.4-8.2); eGFR 49 ML/MIN
[2023-03-27 02:47] LABS: ANISOCYTOSIS 3+; PLATELET ESTIMATE DECREASED; TOTAL CELLS COUNTED 100
[2023-03-27 02:49] LABS: TEAR DROP CELLS 1+
[2023-03-27 02:50] LABS: BURR CELLS 2+; ELLIPTOCYTES FEW; SCHISTOCYTES FEW
[2023-03-27] MEDS: ipratropium/albuterol 3ml nebule NEB SCH ×6 (03:02→23:17)
[2023-03-27] MEDS: aztreonam inj. 1,000 MG in normal saline 100ml IV soln 100 ML IV SCH ×3 (04:17→19:43)
[2023-03-27] MEDS: docusate sodium 100mg/10ml UD cup OGT SCH ×2 (07:30→19:44)
[2023-03-27] MEDS: furosemide 40mg/4ml inj IV SCH ×2 (07:30→19:44)
[2023-03-27] MEDS: apixaban 5mg tablet OGT SCH ×2 (07:31→19:44)
[2023-03-27] MEDS: amiodarone 200mg tablet OGT SCH ×2 (07:31→19:44)
[2023-03-27] MEDS: nystatin 15 GM powder TP SCH ×3 (07:31→20:12)
[2023-03-27] MEDS: pantoprazole 40MG/NS 100ML BAG 100 ML IV SCH (07:35)
[2023-03-27] MEDS ORDERED: VANCOMYCIN LEVEL IV ONE ×2 (08:30→16:32)
[2023-03-27] MEDS: insulin Lispro (HumaLOG) vial - multi-dose SQ SCH ×3 (09:34→18:24)
[2023-03-27] MEDS: vancomycin/NS 1 GM ADD-VANTAGE 250 ML X 1 DOSE IV SCH (13:46)
[2023-03-27] MEDS: insulin glargine (Lantus) pen - multi-dose SQ SCH (20:34)
[2023-03-28] VITALS (19 sets, daily range): BP systolic 100–141; BP diastolic 62–104
[2023-03-28] MEDS: methylPREDNISolone sod succ/PF 40mg inj. IV SCH ×3 (01:31→21:36)
[2023-03-28] MEDS ORDERED: vancomycin/NS 1 GM ADD-VANTAGE 250 ML IV SCH (02:00)
[2023-03-28] MEDS ORDERED: VANCOMYCIN 750MG IV in NS 250 ML IV SCH (02:00)
[2023-03-28] MEDS: ipratropium/albuterol 3ml nebule NEB SCH ×5 (03:08→20:00)
[2023-03-28] MEDS: aztreonam inj. 1,000 MG in normal saline 100ml IV soln 100 ML IV SCH ×2 (03:36→12:59)
[2023-03-28 05:51] LABS: BASOPHILS % (AUTO) 0.1 % (0-1); EOSINOPHILS % (AUTO) 0.1 % (0-6); HEMATOCRIT 40.8 % (42.0-52.0); HEMOGLOBIN 12.6 g/dl (14.0-17.9); LYMPHOCYTES # (AUTO) 0.3 X10'3 (1.1-4.8); LYMPHOCYTES % (AUTO) 2.2 % (21-51); MEAN CORPUSCULAR HEMOGLOBIN 28.9 PG (27.0-31.0); MEAN CORPUSCULAR VOLUME 93.1 FL (78-98); MEAN PLATELET VOLUME 8.4 FL (7.4-10.4); MONOCYTES # (AUTO) 0.2 X10'3 (0-0.9); NEUTROPHILS # (AUTO) 11.4 X10'3 (1.8-7.7); NEUTROPHILS % (AUTO) 95.6 % (42-75); PLATELET COUNT 128 X10'3 (140-440); RED BLOOD COUNT 4.38 X10'6 (4.70-6.10); RED CELL DISTRIBUTION WIDTH 22.5 % (11.5-14.5)
[2023-03-28 06:09] LABS: GLUCOSE 186 MG/DL (70-104); POTASSIUM 4.5 MMOL/L (3.5-5.1); SODIUM 146 MMOL/L (135-145)
[2023-03-28 06:10] LABS: ALANINE AMINOTRANSFERASE 25 U/L (12-78); ALKALINE PHOSPHATASE 84 IU/L (46-116); ANION GAP 1 (8-16); ASPARTATE AMINO TRANSFERASE 24 U/L (10-37); BILIRUBIN,TOTAL 0.5 MG/DL (0.1-1.0); BLOOD UREA NITROGEN 81 MG/DL (7-18); CALCIUM 7.5 MG/DL (8.5-10.1); CHLORIDE 107 MMOL/L (99-107); PHOSPHORUS 5.1 MG/DL (2.3-4.5); TOTAL CARBON DIOXIDE 38.4 MMOL/L (24-32); eGFR 39 ML/MIN
[2023-03-28 06:48] LABS: PLATELET ESTIMATE DECREASED; TOTAL CELLS COUNTED 100
[2023-03-28 06:49] LABS: ANISOCYTOSIS 3+; ELLIPTOCYTES FEW; TEAR DROP CELLS FEW
[2023-03-28] MEDS ORDERED: amiodarone 200mg tablet PO SCH (08:10)
[2023-03-28] MEDS ORDERED: acetaminophen 325mg/10.15ml oral unit dose solution PO PRN ×2 (08:10)
[2023-03-28] MEDS ORDERED: DEXTROSE 15 GM of carb/4 tabs (each vial/BOTTLE has 4 tablets) PO PRN ×2 (08:11)
[2023-03-28] MEDS ORDERED: apixaban 5mg tablet PO SCH (08:11)
[2023-03-28] MEDS ORDERED: mag hydrox/Alum hydrox/simeth 30ml oral suspension PO PRN (08:12)
[2023-03-28] MEDS ORDERED: magnesium hydroxide 30ml (MOM) UD suspension PO PRN (08:13)
[2023-03-28] MEDS: furosemide 40mg/4ml inj IV SCH ×2 (09:46→21:36)
[2023-03-28] MEDS: apixaban 5mg tablet PO SCH ×2 (09:46→21:37)
[2023-03-28] MEDS: amiodarone 200mg tablet PO SCH ×2 (09:46→21:36)
[2023-03-28] MEDS: pantoprazole 40mg Tablet.DR PO SCH (09:46)
[2023-03-28] MEDS: nystatin 15 GM powder TP SCH ×3 (09:47→21:36)
[2023-03-28] MEDS: insulin Lispro (HumaLOG) vial - multi-dose SQ SCH ×2 (09:58→14:13)
[2023-03-28] MEDS ORDERED: VANCOMYCIN LEVEL IV ONE (13:30)
[2023-03-28] MEDS ORDERED: diltiazem-D5W 125mg/125ml 125 ML IV SCH (15:25)
[2023-03-28] MEDS ORDERED: ondansetron 4mg rapidly disintigrating tab PO PRN ×2 (16:05)
[2023-03-28] MEDS ORDERED: ondansetron 4mg rapidly disintigrating tab PO SCH (16:05)
[2023-03-28] MEDS: diltiazem-NS 100mg/100ml 100 ML IV SCH (16:46)
[2023-03-28] MEDS: docusate sodium 100mg/10ml UD cup PO SCH (20:00)
[2023-03-28 20:28] LABS: ATYPICAL PANCA <1:20 titer (Neg:<1:20); CYTOPLASMIC (C-ANCA) <1:20 titer (Neg:<1:20); PERINUCLEAR (P-ANCA) <1:20 titer (Neg:<1:20)
[2023-03-28] MEDS: insulin glargine (Lantus) pen - multi-dose SQ SCH (21:56)
[2023-03-29] VITALS (12 sets, daily range): BP systolic 114–153; BP diastolic 70–86
[2023-03-29] MEDS: ipratropium/albuterol 3ml nebule NEB SCH ×7 (00:32→22:51)
[2023-03-29] MEDS: Melatonin 3mg tablet PO SCH ×2 (01:20→20:57)
[2023-03-29 07:38] LABS: BASOPHILS % (AUTO) 0 % (0-1); EOSINOPHILS % (AUTO) 0 % (0-6); HEMATOCRIT 38.4 % (42.0-52.0); HEMOGLOBIN 11.9 g/dl (14.0-17.9); LYMPHOCYTES # (AUTO) 0.4 X10'3 (1.1-4.8); LYMPHOCYTES % (AUTO) 2.7 % (21-51); MEAN CORPUSCULAR HEMOGLOBIN 28.7 PG (27.0-31.0); MEAN CORPUSCULAR VOLUME 92.5 FL (78-98); MONOCYTES # (AUTO) 0.4 X10'3 (0-0.9); NEUTROPHILS # (AUTO) 14.1 X10'3 (1.8-7.7); NEUTROPHILS % (AUTO) 94.3 % (42-75); PLATELET COUNT 148 X10'3 (140-440); RED BLOOD COUNT 4.15 X10'6 (4.70-6.10); RED CELL DISTRIBUTION WIDTH 22.3 % (11.5-14.5); WHITE BLOOD COUNT 14.9 X10'3 (4.5-11.0)
[2023-03-29 07:56] LABS: ALANINE AMINOTRANSFERASE 24 U/L (12-78); ALBUMIN 2.7 G/DL (3.4-5.0); ALBUMIN/GLOBULIN RATIO 0.9 (1.1-1.5); ALKALINE PHOSPHATASE 73 IU/L (46-116); ANION GAP 6 (8-16); ASPARTATE AMINO TRANSFERASE 20 U/L (10-37); BILIRUBIN,TOTAL 0.6 MG/DL (0.1-1.0); BLOOD UREA NITROGEN 72 MG/DL (7-18); CALCIUM 7.9 MG/DL (8.5-10.1); CHLORIDE 105 MMOL/L (99-107); CREATININE 1.47 MG/DL (0.60-1.10); GLUCOSE 204 MG/DL (70-104); MAGNESIUM 1.9 MG/DL (1.5-2.4); PHOSPHORUS 3.9 MG/DL (2.3-4.5); POTASSIUM 3.5 MMOL/L (3.5-5.1); SODIUM 146 MMOL/L (135-145); TOTAL CARBON DIOXIDE 35.5 MMOL/L (24-32); TOTAL PROTEIN 5.6 G/DL (6.4-8.2); eGFR 49 ML/MIN
[2023-03-29] MEDS: methylPREDNISolone sod succ/PF 40mg inj. IV SCH ×2 (08:45→20:57)
[2023-03-29] MEDS: docusate sodium 100mg/10ml UD cup PO SCH ×2 (08:45→20:00)
[2023-03-29] MEDS: nystatin 15 GM powder TP SCH ×3 (08:46→21:00)
[2023-03-29] MEDS: apixaban 5mg tablet PO SCH ×2 (08:46→20:56)
[2023-03-29] MEDS: furosemide 40mg/4ml inj IV SCH ×2 (08:46→20:57)
[2023-03-29] MEDS: amiodarone 200mg tablet PO SCH ×2 (08:46→20:57)
[2023-03-29] MEDS: pantoprazole 40mg Tablet.DR PO SCH (08:49)
[2023-03-29 08:51] LABS: ANISOCYTOSIS 3+; PLATELET ESTIMATE NORMAL; POIKILOCYTOSIS FEW; TEAR DROP CELLS FEW
[2023-03-29] MEDS: insulin Lispro (HumaLOG) vial - multi-dose SQ SCH ×2 (09:04→13:49)
[2023-03-29] MEDS: diltiazem-NS 100mg/100ml 100 ML IV SCH (12:16)
[2023-03-29] MEDS ORDERED: VANCOMYCIN LEVEL IV ONE (13:30)
[2023-03-29] MEDS: dextrose 50%-water 50ml dispensing syringe IV PRN (17:17)
[2023-03-29] MEDS: insulin glargine (Lantus) pen - multi-dose SQ SCH (21:00)
[2023-03-30 02:00] VITALS: BP 125/78
[2023-03-30] MEDS: ipratropium/albuterol 3ml nebule NEB SCH ×6 (03:05→23:19)
[2023-03-30 04:00] VITALS: BP 126/96
[2023-03-30] MEDS: diltiazem-NS 100mg/100ml 100 ML IV SCH (04:11)
[2023-03-30 06:43] LABS: BASOPHILS % (AUTO) 0.1 % (0-1); EOSINOPHILS % (AUTO) 0 % (0-6); HEMATOCRIT 39.4 % (42.0-52.0); HEMOGLOBIN 12.3 g/dl (14.0-17.9); LYMPHOCYTES # (AUTO) 0.3 X10'3 (1.1-4.8); LYMPHOCYTES % (AUTO) 2.4 % (21-51); MEAN CORPUSCULAR HEMOGLOBIN 28.7 PG (27.0-31.0); MEAN CORPUSCULAR HGB CONC 31.2 g/dL (33.0-36.5); MEAN CORPUSCULAR VOLUME 92.3 FL (78-98); MEAN PLATELET VOLUME 7.6 FL (7.4-10.4); MONOCYTES # (AUTO) 0.3 X10'3 (0-0.9); MONOCYTES % (AUTO) 2.6 % (2-12); NEUTROPHILS # (AUTO) 12.3 X10'3 (1.8-7.7); NEUTROPHILS % (AUTO) 94.9 % (42-75); PLATELET COUNT 151 X10'3 (140-440); RED BLOOD COUNT 4.27 X10'6 (4.70-6.10); RED CELL DISTRIBUTION WIDTH 21.8 % (11.5-14.5)
[2023-03-30 07:12] LABS: ALANINE AMINOTRANSFERASE 21 U/L (12-78); ALBUMIN 2.7 G/DL (3.4-5.0); ALBUMIN/GLOBULIN RATIO 0.9 (1.1-1.5); ALKALINE PHOSPHATASE 75 IU/L (46-116); ANION GAP 4 (8-16); ASPARTATE AMINO TRANSFERASE 21 U/L (10-37); BILIRUBIN,TOTAL 0.8 MG/DL (0.1-1.0); BLOOD UREA NITROGEN 61 MG/DL (7-18); BUN/CREATININE RATIO 51.3 (10.0-20.0); CALCIUM 8.1 MG/DL (8.5-10.1); CHLORIDE 104 MMOL/L (99-107); CREATININE 1.19 MG/DL (0.60-1.10); GLUCOSE 182 MG/DL (70-104); MAGNESIUM 1.9 MG/DL (1.5-2.4); PHOSPHORUS 3.9 MG/DL (2.3-4.5); POTASSIUM 4.4 MMOL/L (3.5-5.1); SODIUM 146 MMOL/L (135-145); TOTAL CARBON DIOXIDE 37.7 MMOL/L (24-32); TOTAL PROTEIN 5.6 G/DL (6.4-8.2); eGFR 62 ML/MIN
[2023-03-30] MEDS: pantoprazole 40mg Tablet.DR PO SCH (07:30)
[2023-03-30] MEDS: docusate sodium 100mg/10ml UD cup PO SCH ×3 (08:00→20:21)
[2023-03-30] MEDS: amiodarone 200mg tablet PO SCH ×2 (08:49→20:28)
[2023-03-30] MEDS: furosemide 40mg/4ml inj IV SCH ×2 (08:50→20:21)
[2023-03-30] MEDS: nystatin 15 GM powder TP SCH ×3 (08:50→21:00)
[2023-03-30] MEDS: apixaban 5mg tablet PO SCH ×2 (08:50→20:28)
[2023-03-30] MEDS: methylPREDNISolone sod succ/PF 40mg inj. IV SCH (08:50)
[2023-03-30] MEDS: spironolactone 25 MG tablet PO SCH ×2 (09:00→20:27)
[2023-03-30] MEDS: insulin Lispro (HumaLOG) vial - multi-dose SQ SCH ×2 (10:20→14:46)
[2023-03-30] MEDS: diltiazem 30mg tablet PO SCH ×2 (14:00→20:28)
[2023-03-30] MEDS: dextrose 50%-water 50ml dispensing syringe IV PRN ×2 (17:07→17:54)
[2023-03-30 18:00] VITALS: BP 127/70
[2023-03-30] MEDS: Melatonin 3mg tablet PO SCH (20:28)
[2023-03-30] MEDS: insulin glargine (Lantus) pen - multi-dose SQ SCH (21:00)
[2023-03-31 02:00] VITALS: BP 117/68
[2023-03-31] MEDS: diltiazem 30mg tablet PO SCH ×4 (02:23→21:24)
[2023-03-31] MEDS: ipratropium/albuterol 3ml nebule NEB SCH ×6 (03:31→23:31)
[2023-03-31 07:00] VITALS: BP 122/74
[2023-03-31 07:05] LABS: BASOPHILS % (AUTO) 0.1 % (0-1); EOSINOPHILS # (AUTO) 0.2 X10'3 (0-0.9); EOSINOPHILS % (AUTO) 0.9 % (0-6); HEMATOCRIT 40.5 % (42.0-52.0); HEMOGLOBIN 12.7 g/dl (14.0-17.9); LYMPHOCYTES # (AUTO) 1.2 X10'3 (1.1-4.8); LYMPHOCYTES % (AUTO) 6.4 % (21-51); MEAN CORPUSCULAR HEMOGLOBIN 28.8 PG (27.0-31.0); MEAN CORPUSCULAR HGB CONC 31.3 g/dL (33.0-36.5); MONOCYTES % (AUTO) 5.4 % (2-12); NEUTROPHILS # (AUTO) 15.9 X10'3 (1.8-7.7); NEUTROPHILS % (AUTO) 87.2 % (42-75); PLATELET COUNT 192 X10'3 (140-440); RED CELL DISTRIBUTION WIDTH 22.1 % (11.5-14.5); WHITE BLOOD COUNT 18.2 X10'3 (4.5-11.0)
[2023-03-31 07:09] LABS: ALANINE AMINOTRANSFERASE 26 U/L (12-78); ALBUMIN 2.7 G/DL (3.4-5.0); ALKALINE PHOSPHATASE 74 IU/L (46-116); ANION GAP 1 (8-16); ASPARTATE AMINO TRANSFERASE 22 U/L (10-37); BILIRUBIN,TOTAL 0.9 MG/DL (0.1-1.0); BLOOD UREA NITROGEN 48 MG/DL (7-18); BUN/CREATININE RATIO 44.4 (10.0-20.0); CALCIUM 8.3 MG/DL (8.5-10.1); CHLORIDE 102 MMOL/L (99-107); CREATININE 1.08 MG/DL (0.60-1.10); GLUCOSE 121 MG/DL (70-104); MAGNESIUM 1.7 MG/DL (1.5-2.4); PHOSPHORUS 2.5 MG/DL (2.3-4.5); POTASSIUM 3.5 MMOL/L (3.5-5.1); SODIUM 143 MMOL/L (135-145); TOTAL PROTEIN 5.4 G/DL (6.4-8.2); eGFR 70 ML/MIN
[2023-03-31 07:48] LABS: ANISOCYTOSIS 3+; PLATELET ESTIMATE NORMAL; TOTAL CELLS COUNTED 100
[2023-03-31 07:50] LABS: TEAR DROP CELLS 1+
[2023-03-31] MEDS: pantoprazole 40mg Tablet.DR PO SCH (07:54)
[2023-03-31] MEDS: spironolactone 25 MG tablet PO SCH ×2 (07:54→21:24)
[2023-03-31] MEDS: furosemide 40mg/4ml inj IV SCH ×2 (07:54→21:23)
[2023-03-31] MEDS: docusate sodium 100mg/10ml UD cup PO SCH ×2 (07:54→20:00)
[2023-03-31] MEDS: prednisone 10mg tablet PO SCH (07:54)
[2023-03-31] MEDS: amiodarone 200mg tablet PO SCH ×2 (07:54→21:25)
[2023-03-31] MEDS: nystatin 15 GM powder TP SCH ×3 (07:55→21:00)
[2023-03-31] MEDS: apixaban 5mg tablet PO SCH ×2 (08:00→21:25)
[2023-03-31 11:00] VITALS: BP 132/80
[2023-03-31] MEDS: insulin Lispro (HumaLOG) vial - multi-dose SQ SCH (14:16)
[2023-03-31] MEDS: normal saline 1000ml 1,000 ML IV SCH ×2 (14:35→23:50)
[2023-03-31 15:00] VITALS: BP 119/77
[2023-03-31 18:00] VITALS: BP 116/74
[2023-03-31] MEDS: insulin glargine (Lantus) pen - multi-dose SQ SCH (21:00)
[2023-03-31] MEDS: Melatonin 3mg tablet PO SCH (21:25)
[2023-03-31 22:00] VITALS: BP 138/80
[2023-04-01 02:00] VITALS: BP 103/71
[2023-04-01] MEDS: diltiazem 30mg tablet PO SCH ×4 (02:35→20:42)
[2023-04-01] MEDS: ipratropium/albuterol 3ml nebule NEB SCH ×6 (03:32→23:20)
[2023-04-01 06:00] VITALS: BP 119/66
[2023-04-01] MEDS: docusate sodium 100mg/10ml UD cup PO SCH ×2 (08:00→20:00)
[2023-04-01] MEDS: furosemide 40mg/4ml inj IV SCH (08:01)
[2023-04-01] MEDS: pantoprazole 40mg Tablet.DR PO SCH (08:12)
[2023-04-01] MEDS: amiodarone 200mg tablet PO SCH ×2 (08:12→20:38)
[2023-04-01] MEDS: apixaban 5mg tablet PO SCH ×2 (08:13→20:38)
[2023-04-01] MEDS: spironolactone 25 MG tablet PO SCH (08:14)
[2023-04-01] MEDS: prednisone 10mg tablet PO SCH (08:16)
[2023-04-01] MEDS: nystatin 15 GM powder TP SCH ×3 (08:17→20:50)
[2023-04-01 09:45] LABS: BASOPHILS % (AUTO) 0.1 % (0-1); EOSINOPHILS # (AUTO) 0.2 X10'3 (0-0.9); EOSINOPHILS % (AUTO) 1.3 % (0-6); LYMPHOCYTES # (AUTO) 1.2 X10'3 (1.1-4.8); LYMPHOCYTES % (AUTO) 6.3 % (21-51); MEAN CORPUSCULAR HEMOGLOBIN 28.5 PG (27.0-31.0); MONOCYTES # (AUTO) 1.1 X10'3 (0-0.9); MONOCYTES % (AUTO) 5.7 % (2-12); NEUTROPHILS # (AUTO) 16.1 X10'3 (1.8-7.7); NEUTROPHILS % (AUTO) 86.6 % (42-75); PLATELET COUNT 194 X10'3 (140-440); RED CELL DISTRIBUTION WIDTH 21.6 % (11.5-14.5)
[2023-04-01 09:55] LABS: ALBUMIN 2.7 G/DL (3.4-5.0); ANION GAP 1 (8-16); BLOOD UREA NITROGEN 35 MG/DL (7-18); CHLORIDE 101 MMOL/L (99-107); CREATININE 1.13 MG/DL (0.60-1.10); GLUCOSE 162 MG/DL (70-104); POTASSIUM 3.4 MMOL/L (3.5-5.1); SODIUM 141 MMOL/L (135-145); TOTAL CARBON DIOXIDE 38.9 MMOL/L (24-32); eGFR 66 ML/MIN
[2023-04-01] MEDS: normal saline 1000ml 1,000 ML IV SCH ×2 (10:12→20:42)
[2023-04-01 10:18] LABS: HEMATOCRIT 41.3 % (42.0-52.0); MEAN CORPUSCULAR HGB CONC 31.4 g/dL (33.0-36.5); MEAN CORPUSCULAR VOLUME 90.7 FL (78-98); RED BLOOD COUNT 4.56 X10'6 (4.70-6.10)
[2023-04-01 10:39] LABS: PLATELET ESTIMATE NORMAL; TOTAL CELLS COUNTED 100
[2023-04-01 10:40] LABS: ANISOCYTOSIS 3+; LARGE PLATELETS MODERATE
[2023-04-01] MEDS: potassium Cl 20 mEq SR tablet PO PRN ×2 (10:57→15:45)
[2023-04-01 11:00] VITALS: BP 122/64
[2023-04-01 14:11] VITALS: BP 110/68
[2023-04-01 15:00] VITALS: BP 116/74
[2023-04-01 18:00] VITALS: BP 149/66
[2023-04-01] MEDS: Melatonin 3mg tablet PO SCH (20:38)
[2023-04-02 02:00] VITALS: BP 117/68
[2023-04-02] MEDS: diltiazem 30mg tablet PO SCH ×4 (02:00→20:50)
[2023-04-02] MEDS: ipratropium/albuterol 3ml nebule NEB SCH ×6 (03:00→23:21)
[2023-04-02 06:30] VITALS: BP 116/76
[2023-04-02 07:02] LABS: BASOPHILS % (AUTO) 0 % (0-1); EOSINOPHILS # (AUTO) 0.3 X10'3 (0-0.9); EOSINOPHILS % (AUTO) 1.8 % (0-6); HEMATOCRIT 38.5 % (42.0-52.0); LYMPHOCYTES # (AUTO) 1.4 X10'3 (1.1-4.8); LYMPHOCYTES % (AUTO) 7.8 % (21-51); MEAN CORPUSCULAR HEMOGLOBIN 28.6 PG (27.0-31.0); MEAN CORPUSCULAR HGB CONC 31.2 g/dL (33.0-36.5); MEAN CORPUSCULAR VOLUME 91.4 FL (78-98); MEAN PLATELET VOLUME 7.7 FL (7.4-10.4); MONOCYTES # (AUTO) 1.2 X10'3 (0-0.9); MONOCYTES % (AUTO) 7.1 % (2-12); NEUTROPHILS # (AUTO) 14.6 X10'3 (1.8-7.7); NEUTROPHILS % (AUTO) 83.3 % (42-75); PLATELET COUNT 188 X10'3 (140-440); RED BLOOD COUNT 4.21 X10'6 (4.70-6.10); RED CELL DISTRIBUTION WIDTH 21.8 % (11.5-14.5); WHITE BLOOD COUNT 17.5 X10'3 (4.5-11.0)
[2023-04-02 07:43] LABS: ALBUMIN 2.6 G/DL (3.4-5.0); ANION GAP 0 (8-16); BLOOD UREA NITROGEN 32 MG/DL (7-18); BUN/CREATININE RATIO 28.1 (10.0-20.0); CALCIUM 7.9 MG/DL (8.5-10.1); CHLORIDE 103 MMOL/L (99-107); CREATININE 1.14 MG/DL (0.60-1.10); GLUCOSE 114 MG/DL (70-104); POTASSIUM 3.7 MMOL/L (3.5-5.1); SODIUM 141 MMOL/L (135-145); TOTAL CARBON DIOXIDE 38.1 MMOL/L (24-32); eGFR 66 ML/MIN
[2023-04-02 07:57] LABS: PLATELET ESTIMATE NORMAL; TOTAL CELLS COUNTED 100
[2023-04-02 07:58] LABS: ANISOCYTOSIS 3+; ELLIPTOCYTES FEW; TEAR DROP CELLS FEW
[2023-04-02 07:59] LABS: LARGE PLATELETS FEW
[2023-04-02] MEDS: docusate sodium 100mg/10ml UD cup PO SCH ×2 (08:00→20:00)
[2023-04-02] MEDS: apixaban 5mg tablet PO SCH ×2 (08:38→20:51)
[2023-04-02] MEDS: amiodarone 200mg tablet PO SCH ×2 (08:38→20:50)
[2023-04-02] MEDS: pantoprazole 40mg Tablet.DR PO SCH (08:38)
[2023-04-02] MEDS: nystatin 15 GM powder TP SCH ×3 (08:39→20:51)
[2023-04-02] MEDS: normal saline 1000ml 1,000 ML IV SCH ×2 (08:41→18:52)
[2023-04-02 11:00] VITALS: BP 106/67
[2023-04-02 15:00] VITALS: BP_SYST 106; BP_DIAS 67; BP_DIAS 68
[2023-04-02] MEDS: spironolactone 25 MG tablet PO SCH (17:25)
[2023-04-02 18:00] VITALS: BP 105/63
[2023-04-02] MEDS: Melatonin 3mg tablet PO SCH (20:51)
[2023-04-02 22:00] VITALS: BP 116/71
[2023-04-03 02:00] VITALS: BP 108/72
[2023-04-03] MEDS: diltiazem 30mg tablet PO SCH ×4 (02:00→21:17)
[2023-04-03] MEDS: ipratropium/albuterol 3ml nebule NEB SCH ×6 (03:27→23:33)
[2023-04-03 06:30] VITALS: BP 137/74
[2023-04-03] MEDS: apixaban 5mg tablet PO SCH ×2 (07:55→21:17)
[2023-04-03] MEDS: pantoprazole 40mg Tablet.DR PO SCH (07:56)
[2023-04-03] MEDS: amiodarone 200mg tablet PO SCH ×2 (07:56→21:17)
[2023-04-03] MEDS: docusate sodium 100mg/10ml UD cup PO SCH ×2 (07:57→20:00)
[2023-04-03] MEDS: spironolactone 25 MG tablet PO SCH ×2 (07:57→17:35)
[2023-04-03] MEDS: nystatin 15 GM powder TP SCH ×3 (07:57→21:18)
[2023-04-03 10:00] VITALS: BP 124/70
[2023-04-03 14:56] LABS: BASOPHILS % (AUTO) 0.1 % (0-1); EOSINOPHILS # (AUTO) 0.3 X10'3 (0-0.9); EOSINOPHILS % (AUTO) 1.4 % (0-6); HEMATOCRIT 40.1 % (42.0-52.0); HEMOGLOBIN 12.5 g/dl (14.0-17.9); LYMPHOCYTES # (AUTO) 1.3 X10'3 (1.1-4.8); MEAN CORPUSCULAR HEMOGLOBIN 28.5 PG (27.0-31.0); MEAN CORPUSCULAR VOLUME 91.8 FL (78-98); MEAN PLATELET VOLUME 8.2 FL (7.4-10.4); MONOCYTES % (AUTO) 5.3 % (2-12); NEUTROPHILS # (AUTO) 15.8 X10'3 (1.8-7.7); NEUTROPHILS % (AUTO) 86.2 % (42-75); PLATELET COUNT 211 X10'3 (140-440); RED BLOOD COUNT 4.37 X10'6 (4.70-6.10); RED CELL DISTRIBUTION WIDTH 21.8 % (11.5-14.5); WHITE BLOOD COUNT 18.4 X10'3 (4.5-11.0)
[2023-04-03 15:00] VITALS: BP 121/66
[2023-04-03 15:00] LABS: ALBUMIN 2.8 G/DL (3.4-5.0); ANION GAP 0 (8-16); BLOOD UREA NITROGEN 27 MG/DL (7-18); BUN/CREATININE RATIO 25.5 (10.0-20.0); CALCIUM 8.4 MG/DL (8.5-10.1); CHLORIDE 105 MMOL/L (99-107); CREATININE 1.06 MG/DL (0.60-1.10); GLUCOSE 130 MG/DL (70-104); POTASSIUM 4.4 MMOL/L (3.5-5.1); SODIUM 140 MMOL/L (135-145); TOTAL CARBON DIOXIDE 34.8 MMOL/L (24-32); eGFR 71 ML/MIN
[2023-04-03 15:25] LABS: TOTAL CELLS COUNTED 100
[2023-04-03 15:26] LABS: PLATELET ESTIMATE NORMAL
[2023-04-03 15:27] LABS: ANISOCYTOSIS 3+; LARGE PLATELETS FEW; TEAR DROP CELLS FEW
[2023-04-03 18:00] VITALS: BP 113/70
[2023-04-03] MEDS: Melatonin 3mg tablet PO SCH (21:18)
[2023-04-03 23:00] VITALS: BP 116/70
[2023-04-04] MEDS: diltiazem 30mg tablet PO SCH ×3 (01:40→13:15)
[2023-04-04 01:48] VITALS: BP 113/71
[2023-04-04] MEDS: ipratropium/albuterol 3ml nebule NEB SCH ×3 (02:58→11:28)
[2023-04-04 07:31] VITALS: BP 129/58
[2023-04-04] MEDS: docusate sodium 100mg/10ml UD cup PO SCH (08:00)
[2023-04-04] MEDS: pantoprazole 40mg Tablet.DR PO SCH (08:01)
[2023-04-04] MEDS: apixaban 5mg tablet PO SCH (08:01)
[2023-04-04] MEDS: amiodarone 200mg tablet PO SCH (08:02)
[2023-04-04] MEDS: spironolactone 25 MG tablet PO SCH (08:02)
[2023-04-04] MEDS: nystatin 15 GM powder TP SCH ×2 (08:02→13:15)
[2023-04-04 08:07] LABS: ALBUMIN 2.4 G/DL (3.4-5.0); ANION GAP 5 (8-16); BLOOD UREA NITROGEN 22 MG/DL (7-18); BUN/CREATININE RATIO 23.7 (10.0-20.0); CALCIUM 8.4 MG/DL (8.5-10.1); CHLORIDE 104 MMOL/L (99-107); CREATININE 0.93 MG/DL (0.60-1.10); GLUCOSE 97 MG/DL (70-104); SODIUM 135 MMOL/L (135-145); TOTAL CARBON DIOXIDE 26.5 MMOL/L (24-32); eGFR 83 ML/MIN
[2023-04-04 09:36] LABS: BASOPHILS % (AUTO) 0.3 % (0-1); EOSINOPHILS # (AUTO) 0.3 X10'3 (0-0.9); EOSINOPHILS % (AUTO) 1.5 % (0-6); HEMATOCRIT 38.5 % (42.0-52.0); LYMPHOCYTES # (AUTO) 1.2 X10'3 (1.1-4.8); LYMPHOCYTES % (AUTO) 7.3 % (21-51); MEAN CORPUSCULAR HEMOGLOBIN 28.7 PG (27.0-31.0); MEAN CORPUSCULAR HGB CONC 31.2 g/dL (33.0-36.5); MEAN CORPUSCULAR VOLUME 91.8 FL (78-98); MEAN PLATELET VOLUME 7.8 FL (7.4-10.4); MONOCYTES # (AUTO) 0.8 X10'3 (0-0.9); MONOCYTES % (AUTO) 4.5 % (2-12); NEUTROPHILS # (AUTO) 14.5 X10'3 (1.8-7.7); NEUTROPHILS % (AUTO) 86.4 % (42-75); PLATELET COUNT 200 X10'3 (140-440); RED BLOOD COUNT 4.19 X10'6 (4.70-6.10); RED CELL DISTRIBUTION WIDTH 22.5 % (11.5-14.5); WHITE BLOOD COUNT 16.8 X10'3 (4.5-11.0)
[2023-04-04 10:59] LABS: ANISOCYTOSIS 3+; PLATELET ESTIMATE NORMAL; TOTAL CELLS COUNTED 100
[2023-04-04 11:00] LABS: ELLIPTOCYTES FEW
[2023-04-04] MEDS ORDERED: FURO-150 PO (11:26)
[2023-04-04] MEDS ORDERED: AMIO200T67 PO (11:26)
[2023-04-04] MEDS ORDERED: METO-539 PO (11:26)
[2023-04-04 11:28] VITALS: BP 108/53
[2023-04-04 13:15] VITALS: BP 98/51
== END 2023-04-04 14:32 | disposition home or self-care (01) | DRG 393 ==
LOC: ER 12:05 → ED HOLD 17:38 → PCU 3S 03-21 10:35 → ICU 2S 03-21 16:52 → PCU 3S 03-28 05:24
PROVIDERS: ADMIT Internal Medicine; ATTEND Internal Medicine
PROC: 0H87XZZ Division of Abdomen Skin, External Approach (ICD-10-PCS; 2023-03-21)
PROC: 5A1935Z Respiratory Ventilation, Less than 24 Consecutive Hours (ICD-10-PCS; 2023-03-21)
PROC: 5A09357 Assistance with Respiratory Ventilation, Less than 24 Consecutive Hours, Continuous Positive Airway Pressure (ICD-10-PCS; 2023-03-22)
PROC: 02HV33Z Insertion of Infusion Device into Superior Vena Cava, Percutaneous Approach (ICD-10-PCS; principal; 2023-03-23)
PROC: 5A1945Z Respiratory Ventilation, 24-96 Consecutive Hours (ICD-10-PCS; 2023-03-23)
PROC: 0BH17EZ Insertion of Endotracheal Airway into Trachea, Via Natural or Artificial Opening (ICD-10-PCS; 2023-03-23)
DX: K94.11 Enterostomy hemorrhage (principal); J96.22 Acute and chronic respiratory failure with hypercapnia; N17.0 Acute kidney failure with tubular necrosis; J44.1 Chronic obstructive pulmonary disease with (acute) exacerbation; I13.0 Hypertensive heart and chronic kidney disease with heart failure and stage 1 through stage 4 chronic kidney disease, or unspecified chronic kidney disease; G93.40 Encephalopathy, unspecified; R65.10 Systemic inflammatory response syndrome (SIRS) of non-infectious origin without acute organ dysfunction; E87.5 Hyperkalemia; I50.9 Heart failure, unspecified; I48.0 Paroxysmal atrial fibrillation; N40.0 Benign prostatic hyperplasia without lower urinary tract symptoms; N18.30 Chronic kidney disease, stage 3 unspecified; K94.19 Other complications of enterostomy; Z79.01 Long term (current) use of anticoagulants; Z91.148 Patient's other noncompliance with medication regimen for other reason; Z79.899 Other long term (current) drug therapy; Z83.3 Family history of diabetes mellitus; Z87.442 Personal history of urinary calculi
CPT/HCPCS: 93308; 99285; Z7506; Z7508; 36415; 36600; 71045; 71250; 76770; 80047; 80048; 80053; 80069; 80202; 81001; 82248; 82803; 82948; 83036; 83605; 83615; 83735; 83880; 84100; 84134; 84145; 84439; 84443; 84478; 85007; 85008; 85018; 85025; 85610; 85730; 86038; 86060; 86160; 86256; 86430; 86885; 86900; 86901; 87040; 87070; 87081; 87088; 87207; 92508; 92616; 93005; 94002; 94003; 94640; 94660; 94760; 94799; 97110; 97116; 97161; 97530; A4333; A4421; A4615; A4618; A4620; A4649; A6250; A6253; A6258; A6402; A6446; A6449; A7000; A7015; A9900; C1751; C9113; G0378; J1815; J1940; J1956; J2250; J2370; J2405; J2704; J2920; J2930; J3010; J3370; J3480; J3490; J7030; J7040; J7050; J7120; J7512; P9047

== ENCOUNTER 2023-05-04 21:55 | Inpatient (IN) | payer BC, MEDICAID ==
[~2023-05-04] VITALS: Ht 175.3 cm; Wt 112.7 kg
[~2023-05-04 21:55] MED LIST changes: -ACET325T64 PO; -AMIO200T27 PO; +AMIO200T67 PO; -CIPR-259 PO; -CLIN60SO2 TOP; -DIPH-629 PO; -FERR325T35 PO; +FLO0.4C PO; +FURO-150 PO; -LIDO40SO TOP; -LORA10TA7 PO; -MELA3TAB39 PO; +METO-539 PO; -METO5TAB98 PO; -METR-159 PO; -NYSPWD TOP; -ONDA4TAB12 PO; -PHEN-887 PO; -POLY17PO59 PO; -PRAM177L28 TOP; -SODI473S26 TOP; -TRAM50TA2 PO; -TRIA15OI9 TOP
[2023-05-05 03:50] LABS: ALANINE AMINOTRANSFERASE 18 U/L (12-78); ALBUMIN 3.2 G/DL (3.4-5.0); ALBUMIN/GLOBULIN RATIO 0.9 (1.1-1.5); ALKALINE PHOSPHATASE 116 IU/L (46-116); ANION GAP 4 (8-16); ASPARTATE AMINO TRANSFERASE 12 U/L (10-37); BILIRUBIN,TOTAL 0.4 MG/DL (0.1-1.0); BLOOD UREA NITROGEN 26 MG/DL (7-18); BUN/CREATININE RATIO 15.8 (10.0-20.0); CHLORIDE 105 MMOL/L (99-107); CREATININE 1.65 MG/DL (0.60-1.10); GLUCOSE 138 MG/DL (70-104); POTASSIUM 4.3 MMOL/L (3.5-5.1); SODIUM 143 MMOL/L (135-145); TOTAL CARBON DIOXIDE 33.7 MMOL/L (24-32); TOTAL PROTEIN 6.7 G/DL (6.4-8.2); eGFR 43 ML/MIN
[2023-05-05 03:51] LABS: BASOPHILS # (AUTO) 0.2 X10'3 (0-0.2); BASOPHILS % (AUTO) 1.3 % (0-1); EOSINOPHILS # (AUTO) 0.1 X10'3 (0-0.9); EOSINOPHILS % (AUTO) 0.9 % (0-6); HEMATOCRIT 37.8 % (42.0-52.0); HEMOGLOBIN 11.4 g/dl (14.0-17.9); LYMPHOCYTES # (AUTO) 0.8 X10'3 (1.1-4.8); LYMPHOCYTES % (AUTO) 6.8 % (21-51); MEAN CORPUSCULAR HEMOGLOBIN 26.5 PG (27.0-31.0); MEAN CORPUSCULAR HGB CONC 30.1 g/dL (33.0-36.5); MEAN PLATELET VOLUME 7.2 FL (7.4-10.4); MONOCYTES # (AUTO) 0.9 X10'3 (0-0.9); MONOCYTES % (AUTO) 7.2 % (2-12); NEUTROPHILS # (AUTO) 10.1 X10'3 (1.8-7.7); NEUTROPHILS % (AUTO) 83.8 % (42-75); PLATELET COUNT 205 X10'3 (140-440); RED BLOOD COUNT 4.29 X10'6 (4.70-6.10); RED CELL DISTRIBUTION WIDTH 22.9 % (11.5-14.5)
[2023-05-05] MEDS ORDERED: furosemide 10 MG/1 ML 10ml inj IV ONE (04:55)
[2023-05-05] MEDS ORDERED: aspirin 325mg tablet PO ONE (04:55)
[2023-05-05] MEDS ORDERED: nitroGLYCERIN 1gm ointment UD TP ONE (04:55)
[2023-05-05] MEDS ORDERED: METO-395 PO (05:20)
[2023-05-05] MEDS ORDERED: potassium Cl 20 mEq SR tablet PO PRN ×2 (05:30)
[2023-05-05] MEDS ORDERED: magnesium 4gm in 100ml NS 100 ML IV PRN (05:30)
[2023-05-05] MEDS ORDERED: magnesium Cl slow-release 64mg tablet PO PRN (05:30)
[2023-05-05] MEDS ORDERED: potassium Cl 40MEQ/1/2NS 520ml 520 ML IV PRN (05:30)
[2023-05-05] MEDS ORDERED: magnesium 2GM in 50ml NS 50 ML IV PRN (05:30)
[2023-05-05] MEDS ORDERED: acetaminophen 325mg tablet PO PRN (05:30)
[2023-05-05] MEDS ORDERED: ondansetron/PF 4mg/2ml inj IV PRN (05:30)
[2023-05-05] MEDS: normal saline 1000ml 1,000 ML IV SCH ×2 (06:15→21:52)
[2023-05-05 06:19] LABS: ANISOCYTOSIS 3+; PLATELET ESTIMATE NORMAL; POLYCHROMASIA 1+; TOTAL CELLS COUNTED 100
[2023-05-05 06:21] LABS: TEAR DROP CELLS 1+
[2023-05-05 06:22] LABS: ELLIPTOCYTES FEW; SCHISTOCYTES FEW
[2023-05-05] MEDS ORDERED: levoFLOXACIN-Levaquin 500mg/D5 100 ML IV ONE (06:30)
[2023-05-05] MEDS ORDERED: apixaban 5mg tablet PO SCH (08:00)
[2023-05-05] MEDS ORDERED: furosemide 40mg/4ml inj IV SCH (08:00)
[2023-05-05] MEDS: tamsulosin 0.4mg capsule PO SCH (08:45)
[2023-05-05] MEDS: metoprolol succinate 25mg (24-HOUR) SR. Tablet PO SCH (08:45)
[2023-05-05] MEDS: amiodarone 200mg tablet PO SCH ×2 (08:45→20:00)
[2023-05-05] MEDS ORDERED: ondansetron/PF 4mg/2ml inj IV ONE (09:10)
--- NOTE | 2023-05-05 09:10 | NUR ---
Patient was given clear liquid diet for breakfast, he threw up after like may be 10 minutes later. Patient not in distress. Received a verbal order from Dr. Hallman to give extra dose of Zofran 4 mg IV as it was not due yet at this time
[2023-05-05 11:30] VITALS: BP 114/65
[2023-05-05] MEDS ORDERED: proCHLORperazine 10 MG/2 ml inj IV PRN (13:25)
[2023-05-05] MEDS ORDERED: diphenhydrAMINE 50 mg/ml inj ONE (16:31)
[2023-05-05 16:35] LABS: ABG BASE EXCESS 0.5 mmol/L (-2.0-2.0); ABG HCO3 32.8 mmol/L (22.0-26.0); ABG OXYGEN SATURATION 92.4 % (94-97); ABG PCO2 (T) 103.8 mmHg (35.0-48.0); ABG PO2 (T) 76.3 mmHg (75.0-100.0); ALLEN'S TEST POSITIVE; FCOHb 0.4 % (0.0-3.9); FLOW 6 L/min; FMetHb 0.6 % (0.0-1.5); FO2Hb 91.5 % (94-97); TOTAL HEMOGLOBIN 12.7 G/dl (14.0-17.9)
[2023-05-05] MEDS ORDERED: diphenhydrAMINE 50 mg/ml inj IV ONE (16:35)
--- NOTE | 2023-05-05 17:10 | NUR ---
ENTERED PATIENT ROOM ATTEMPTING TO GET PATIENT TO CT AT THIS TIME. PATIENT SEEMED UNRESPONSIVE TO VOICE. ATTEMPT TO AROUSE PATIENT BUT WAS UNABLE. CHARGE WAS BROUGHT INTO ROOM BEGAN DEEP STERNAL RUB WITH NO RESPONSE. AT THIS TIME RAPID WAS CALLED, ABG SHOWED ELEVATED CO2 AND PH LOW, PATIENT WAS STARTED ON BIPAP. PATIENT WAS ALSO GIVEN DIPHENHYDRAMINE JUST INCASE POSSIBLE REACTION TO COMPAZINE. PATIENT VITALS STABLE AT THIS TIME AND MONITORING ON BIPAP. PATIENT WILL HAVE REPEAT ABG AT 1800.
[2023-05-05 17:24] VITALS: BP 114/65
[2023-05-05 18:00] VITALS: BP 114/64
--- NOTE | 2023-05-05 18:11 | NUR ---
PATIENT CONDITION IMPROVING, PATIENT ACKNOWLEDGED THAT BIPAP WAS NEEDED AND AGREED TO KEEP IN PLACE AT THIS TIME. PATIENT SHOWED UNDERSTANDING OF TEACHING AT THIS TIME.
--- NOTE | 2023-05-05 18:35 | NUR ---
[place] documentation: I have reviewed all interventions, assessments performed and documented by Lj KRISHNAMURTHY.
--- NOTE | 2023-05-05 18:37 | NUR ---
[place] Medication Administration: For this medication-pass time frame, all medication were reviewed, dispensed, administered and documented per hospital policy by Rayray KRISHNAMURTHY.
--- NOTE | 2023-05-05 19:11 | NUR ---
Problems reprioritized. Patient report given to Jenna KRISHNAMURTHY, questions answered & plan of care reviewed with .
[2023-05-05 19:19] LABS: ABG BASE EXCESS -2.4 mmol/L (-2.0-2.0); ABG HCO3 28.3 mmol/L (22.0-26.0); ABG PCO2 (T) 80.3 mmHg (35.0-48.0); ABG PO2 (T) 102.6 mmHg (75.0-100.0); ALLEN'S TEST POSITIVE; FCOHb 0.2 % (0.0-3.9); FMetHb 0.5 % (0.0-1.5); FO2Hb 96.3 % (94-97); PATIENT TEMPERATURE 36.3; RESPIRATORY RATE 18 b/min; TOTAL HEMOGLOBIN 12.6 G/dl (14.0-17.9)
--- NOTE | 2023-05-05 19:27 | NUR ---
ABG's back Charge Aware expected result CO2 improving with bipap.
[2023-05-05] MEDS: enoxaparin 60mg/0.6ml syringe SUBCUT SCH (20:00)
[2023-05-05] MEDS ORDERED: enoxaparin 40mg/0.4ml syringe SQ SCH (20:00)
--- NOTE | 2023-05-05 20:27 | NUR ---
Pt is being transported by RT and RN in a bed on bipap
[2023-05-05 21:38] VITALS: BP 112/67
[2023-05-05 22:00] VITALS: BP 107/60
--- NOTE | 2023-05-05 23:19 | NUR ---
PAGER ID: [phone] MESSAGE: [id number] Johnnie Herrera ABGs have resulted and pt had CT of abdomen and head result tonight. Was a rapid response on dayshift. Jenna [phone]
--- NOTE | 2023-05-05 23:28 | NUR ---
Dr Hernandez ordered ABG for this patient right now and lowered his rate from [address] Hernandez said she does not want me to call with new ABG result she will look herself when it is resulted.
[2023-05-05 23:48] LABS: ABG BASE EXCESS -0.3 mmol/L (-2.0-2.0); ABG HCO3 29.7 mmol/L (22.0-26.0); ABG OXYGEN SATURATION 96.2 % (94-97); ABG PCO2 (T) 76.4 mmHg (35.0-48.0); ABG PO2 (T) 89.7 mmHg (75.0-100.0); ALLEN'S TEST POSITIVE; FCOHb 0.3 % (0.0-3.9); FMetHb 0.6 % (0.0-1.5); FO2Hb 95.3 % (94-97); PATIENT TEMPERATURE 36.2; RESPIRATORY RATE 18 b/min; TOTAL HEMOGLOBIN 12.2 G/dl (14.0-17.9)
[2023-05-06 02:27] VITALS: BP 116/89
--- NOTE | 2023-05-06 02:30 | NUR ---
PT WAS ABLE TO USE URINAL WITH HELP AND SIT AT THE EDGE OF THE BED. PT STATED HE DIDN'T REMEMBER GOING TO CT WHEN ASKED. PT WAS DEMANDING ICE CHIPS AND WANTED TO STAY ON THE SIDE OF THE BED. I EXPLAINED TO HIM HE COULD HAVE MOUTH SWABS BUT NO ICE CHIPS AT THIS TIME. HE KEPT REPEATEDLY ASKING FOR THEM. I GOT HIM SETTLED BACK IN BED AND HE HIT THE CALL LIGHT AND ASKED FOR ICE AGAIN. I AGAIN EXPLAINED TO HIM THAT THE DR ORDERED HIM NPO AND THAT HE COULD NOT HAVE ANYTHING BY MOUTH BUT HE COULD HAVE MOUTH SWABS AND HE SAID THAT THEY DON'T WORK. HE EVENTUALLY QUIETED DOWN AND WENT BACK TO SLEEP.
[2023-05-06 06:35] LABS: BASOPHILS # (AUTO) 0.1 X10'3 (0-0.2); BASOPHILS % (AUTO) 0.8 % (0-1); EOSINOPHILS # (AUTO) 0.2 X10'3 (0-0.9); EOSINOPHILS % (AUTO) 1.3 % (0-6); HEMATOCRIT 36.7 % (42.0-52.0); LYMPHOCYTES # (AUTO) 0.9 X10'3 (1.1-4.8); LYMPHOCYTES % (AUTO) 6.3 % (21-51); MEAN CORPUSCULAR HEMOGLOBIN 26.5 PG (27.0-31.0); MEAN CORPUSCULAR HGB CONC 29.9 g/dL (33.0-36.5); MEAN CORPUSCULAR VOLUME 88.6 FL (78-98); MEAN PLATELET VOLUME 7.2 FL (7.4-10.4); MONOCYTES # (AUTO) 1.1 X10'3 (0-0.9); MONOCYTES % (AUTO) 7.4 % (2-12); NEUTROPHILS # (AUTO) 11.9 X10'3 (1.8-7.7); NEUTROPHILS % (AUTO) 84.2 % (42-75); PLATELET COUNT 170 X10'3 (140-440); RED BLOOD COUNT 4.15 X10'6 (4.70-6.10); RED CELL DISTRIBUTION WIDTH 22.6 % (11.5-14.5); WHITE BLOOD COUNT 14.2 X10'3 (4.5-11.0)
--- NOTE | 2023-05-06 06:38 | NUR ---
Patient in room PCU 3011. I have received report from Jenna KRISHNAMURTHY and had the opportunity to ask questions and assume patient care.
--- NOTE | 2023-05-06 06:38 | NUR ---
Problems reprioritized. Patient report given, questions answered & plan of care reviewed with YESSY MALDONADO AND YESSY RAMIREZ.
--- NOTE | 2023-05-06 06:41 | NUR ---
Patient in room PCU 3011. I have received report from Jenna KRISHNAMURTHY and had the opportunity to ask questions and assume patient care.
[2023-05-06 06:55] LABS: ALANINE AMINOTRANSFERASE 15 U/L (12-78); ALBUMIN 2.9 G/DL (3.4-5.0); ALBUMIN/GLOBULIN RATIO 0.9 (1.1-1.5); ALKALINE PHOSPHATASE 103 IU/L (46-116); ANION GAP 7 (8-16); ASPARTATE AMINO TRANSFERASE 15 U/L (10-37); BILIRUBIN,TOTAL 0.4 MG/DL (0.1-1.0); BLOOD UREA NITROGEN 27 MG/DL (7-18); BUN/CREATININE RATIO 16.6 (10.0-20.0); CALCIUM 7.8 MG/DL (8.5-10.1); CHLORIDE 106 MMOL/L (99-107); CREATININE 1.63 MG/DL (0.60-1.10); GLUCOSE 91 MG/DL (70-104); POTASSIUM 4.4 MMOL/L (3.5-5.1); SODIUM 144 MMOL/L (135-145); TOTAL CARBON DIOXIDE 31.2 MMOL/L (24-32); eGFR 43 ML/MIN
[2023-05-06 07:03] VITALS: BP 114/63
[2023-05-06 07:53] LABS: ANISOCYTOSIS 3+; LARGE PLATELETS FEW; PLATELET ESTIMATE NORMAL; TOTAL CELLS COUNTED 100
[2023-05-06 07:54] LABS: ELLIPTOCYTES FEW; HYPOCHROMASIA 1+; STOMATOCYTES 1+
[2023-05-06 07:55] LABS: TEAR DROP CELLS FEW
[2023-05-06] MEDS: enoxaparin 60mg/0.6ml syringe SUBCUT SCH ×3 (08:00→22:29)
[2023-05-06 08:23] LABS: ABG BASE EXCESS 0.7 mmol/L (-2.0-2.0); ABG HCO3 29.6 mmol/L (22.0-26.0); ABG PCO2 (T) 70.4 mmHg (35.0-48.0); ALLEN'S TEST POSITIVE; FCOHb 0.7 % (0.0-3.9); FMetHb 0.5 % (0.0-1.5); FO2Hb 96.8 % (94-97); RESPIRATORY RATE 20 b/min; TIDAL VOLUME 663 mL; TOTAL HEMOGLOBIN 12.1 G/dl (14.0-17.9)
--- NOTE | 2023-05-06 08:59 | NUR ---
PAGER ID: [phone] MESSAGE: Lj KRISHNAMURTHY tele, [phone], rm#[phone], CT resulted last night, held last night's dose, do you want to hold off or give the 8am lovenox. Thanks
[2023-05-06] MEDS: tamsulosin 0.4mg capsule PO SCH (09:01)
[2023-05-06] MEDS: amiodarone 200mg tablet PO SCH ×2 (09:01→22:28)
[2023-05-06] MEDS: metoprolol succinate 25mg (24-HOUR) SR. Tablet PO SCH (09:01)
[2023-05-06] MEDS ORDERED: levoFLOXACIN-Levaquin 500mg/D5 100 ML IV ONE (09:20)
--- NOTE | 2023-05-06 09:27 | NUR ---
PAGER ID: [phone] MESSAGE: Lj KRISHNAMURTHY tele, [phone] rm# [phone]. pt is wondering to get some ice chips or something to drink, pt. states the mask is drying out the mouth. is that ok. Thanks
--- NOTE | 2023-05-06 11:14 | NUR ---
Patient refused vitals during this time.
[2023-05-06] MEDS: normal saline 1000ml 1,000 ML IV SCH (12:18)
[2023-05-06] MEDS: vancomycin/NS 1 GM ADD-VANTAGE 250 ML IV SCH ×2 (12:18→22:29)
--- NOTE | 2023-05-06 15:33 | NUR ---
PT. TITRATED 02 FROM 4L TO 2L AND WAS AT 98%02, TURNED OFF 02 AND WAS STILL 98%02 , THEN 15MIN LATER PT. WAS AT 78%02, TURNED BACK 02 TO 1L, AND PT WENT UP TO 97%02, CURRENTLY TOOK OFF 02 AND WILL CONTINUE TO MONITOR.
[2023-05-06 15:51] LABS: ABG BASE EXCESS 3.9 mmol/L (-2.0-2.0); ABG HCO3 33.4 mmol/L (22.0-26.0); ABG OXYGEN SATURATION 82.5 % (94-97); ABG PCO2 (T) 77.6 mmHg (35.0-48.0); ABG PO2 (T) 47.8 mmHg (75.0-100.0); ALLEN'S TEST POSITIVE; FCOHb 0.5 % (0.0-3.9); FMetHb 0.4 % (0.0-1.5); FO2Hb 81.8 % (94-97); TOTAL HEMOGLOBIN 12.7 G/dl (14.0-17.9)
--- NOTE | 2023-05-06 16:01 | NUR ---
RT WITH PT. TITRATED 02 TO 0.5L 02 AND PT. IS AT 95%02. WILL CONTINUE TO MONITOR.
--- NOTE | 2023-05-06 16:13 | NUR ---
PAGER ID: [phone] MESSAGE: RENETTA KRISHNAMURTHY TELE, [phone], RM# [phone], PT. 1500H ABG RESULTS CAME IN. PT. HAS BEEN REFUSING TO WEAR BIPAP. PT IS ON 0.5L 02 NC CURRENTLY. HAVING HARD TIME KEEPING STABLE BETWEEN 88-92%O2. THANKS Addendum: 05/06/23 at 1625 by Renetta Kahn RN CALLED BACK. GAVE ORDERS FOR INCENTIVE SPIROMETER, HUMIDIFIER EVEN AT 0.5L PRN, AND OXYGEN SIGN ON DOOR TO NOT TITRATE OXYGEN.
--- NOTE | 2023-05-06 17:03 | NUR ---
PT. WAS EDUCATED ON THE USE OF THE INCENTIVE SPIROMETER, AND THE Q15MIN USE.
--- NOTE | 2023-05-06 17:04 | NUR ---
PT. IS AT 81%02 AT 0.5L, TITRATED UP TO 1L FOR THE MOMENT AND WILL CONTINUE TO MONITOR. Addendum: 05/06/23 at 1731 by Lj Kahn RN PT. IS AT 93%02 ON 1L. WILL CONTINUE TO MONITOR.
--- NOTE | 2023-05-06 17:10 | NUR ---
[place] documentation: I have reviewed all interventions, assessments performed and documented by Lj KRISHNAMURTHY.
--- NOTE | 2023-05-06 18:34 | NUR ---
Problems reprioritized. Patient report given TO ASHIA KRISHNAMURTHY, questions answered & plan of care reviewed with .
[2023-05-06 18:51] VITALS: BP 117/60
[2023-05-06] MEDS ORDERED: furosemide 40mg/4ml inj IV ONE (21:35)
[2023-05-06 22:00] VITALS: BP 120/56
[2023-05-07 02:00] VITALS: BP 110/51
--- NOTE | 2023-05-07 05:40 | NUR ---
PT REFUSES TO WEAR BIPAP ON NC AT 0.5 L 02
--- NOTE | 2023-05-07 06:44 | NUR ---
Problems reprioritized. Patient report given, questions answered & plan of care reviewed with YESSY JARAMILLO.
[2023-05-07 07:00] VITALS: BP 114/52
--- NOTE | 2023-05-07 07:16 | NUR ---
Patient in room PCU 3011. I have received report from Jenna KRISHNAMURTHY and had the opportunity to ask questions and assume patient care.
[2023-05-07 07:22] LABS: BASOPHILS # (AUTO) 0.1 X10'3 (0-0.2); BASOPHILS % (AUTO) 0.7 % (0-1); EOSINOPHILS # (AUTO) 0.1 X10'3 (0-0.9); EOSINOPHILS % (AUTO) 0.8 % (0-6); HEMATOCRIT 36.6 % (42.0-52.0); HEMOGLOBIN 11.1 g/dl (14.0-17.9); LYMPHOCYTES # (AUTO) 0.5 X10'3 (1.1-4.8); LYMPHOCYTES % (AUTO) 3.1 % (21-51); MEAN CORPUSCULAR HEMOGLOBIN 26.3 PG (27.0-31.0); MEAN CORPUSCULAR HGB CONC 30.2 g/dL (33.0-36.5); MEAN CORPUSCULAR VOLUME 87.2 FL (78-98); MEAN PLATELET VOLUME 7.6 FL (7.4-10.4); MONOCYTES # (AUTO) 0.7 X10'3 (0-0.9); MONOCYTES % (AUTO) 4.3 % (2-12); NEUTROPHILS % (AUTO) 91.1 % (42-75); PLATELET COUNT 178 X10'3 (140-440); RED CELL DISTRIBUTION WIDTH 23.4 % (11.5-14.5); WHITE BLOOD COUNT 15.4 X10'3 (4.5-11.0)
[2023-05-07 07:40] LABS: ALANINE AMINOTRANSFERASE 17 U/L (12-78); ALBUMIN 2.9 G/DL (3.4-5.0); ALBUMIN/GLOBULIN RATIO 0.9 (1.1-1.5); ALKALINE PHOSPHATASE 102 IU/L (46-116); ANION GAP 6 (8-16); ASPARTATE AMINO TRANSFERASE 20 U/L (10-37); BILIRUBIN,TOTAL 0.6 MG/DL (0.1-1.0); BLOOD UREA NITROGEN 31 MG/DL (7-18); BUN/CREATININE RATIO 21.7 (10.0-20.0); CALCIUM 8.3 MG/DL (8.5-10.1); CHLORIDE 105 MMOL/L (99-107); CREATININE 1.43 MG/DL (0.60-1.10); GLUCOSE 79 MG/DL (70-104); SODIUM 142 MMOL/L (135-145); TOTAL CARBON DIOXIDE 31.2 MMOL/L (24-32); TOTAL PROTEIN 6.1 G/DL (6.4-8.2); eGFR 50 ML/MIN
[2023-05-07] MEDS ORDERED: levoFLOXACIN-Levaquin 500mg/D5 100 ML IV SCH (08:00)
[2023-05-07 08:04] LABS: ANISOCYTOSIS 3+; LARGE PLATELETS FEW; PLATELET ESTIMATE NORMAL; TOTAL CELLS COUNTED 100
[2023-05-07 08:06] LABS: ELLIPTOCYTES FEW
[2023-05-07] MEDS: amiodarone 200mg tablet PO SCH ×2 (09:12→20:27)
[2023-05-07] MEDS: metoprolol succinate 25mg (24-HOUR) SR. Tablet PO SCH (09:12)
[2023-05-07] MEDS: tamsulosin 0.4mg capsule PO SCH (09:12)
[2023-05-07] MEDS: furosemide 40mg/4ml inj IV SCH ×2 (09:13→20:33)
[2023-05-07] MEDS: enoxaparin 60mg/0.6ml syringe SUBCUT SCH ×2 (09:13→20:31)
[2023-05-07] MEDS: vancomycin/NS 1 GM ADD-VANTAGE 250 ML IV SCH ×2 (10:50→22:00)
[2023-05-07 11:00] VITALS: BP 114/52
[2023-05-07 15:00] VITALS: BP 99/48
[2023-05-07 18:00] VITALS: BP 107/52
--- NOTE | 2023-05-07 18:13 | NUR ---
Problems reprioritized. Patient report given, questions answered & plan of care reviewed with Petrona KRISHNAMURTHY.
--- NOTE | 2023-05-07 18:20 | NUR ---
Received report from primary care nurse Simeon KRISHNAMURTHY. Patient is awake and alert on 0.5LNC. Has informed this nurse his ileostomy has burst. Will address rodrigue. Call light and items of frequent use within reach. Will continue to monitor for changes.
[2023-05-07] MEDS ORDERED: VANCOMYCIN LEVEL IV ONE (21:30)
[2023-05-07 22:00] VITALS: BP 105/53
--- NOTE | 2023-05-07 22:07 | NUR ---
Notified of Vanco trough 21.5. Per MD Longo hold dose.
[2023-05-07] MEDS: acetaminophen 325mg tablet PO PRN (23:28)
[2023-05-08 02:00] VITALS: BP 106/52
[2023-05-08] MEDS ORDERED: ondansetron/PF 4mg/2ml inj IV PRN (05:05)
--- NOTE | 2023-05-08 06:28 | NUR ---
Reported off to Marisol KRISHNAMURTHY. Patient is awake and alert watching television on 0.5LNC. In no apparent distress. Call light and items of frequent use within reach.
--- NOTE | 2023-05-08 06:58 | NUR ---
Patient in room PCU 3011. I have received report from YESSY DELA CRUZ and had the opportunity to ask questions and assume patient care.
[2023-05-08 07:00] VITALS: BP 106/52
[2023-05-08 07:05] LABS: BASOPHILS # (AUTO) 0.1 X10'3 (0-0.2); BASOPHILS % (AUTO) 1.2 % (0-1); EOSINOPHILS # (AUTO) 0.2 X10'3 (0-0.9); EOSINOPHILS % (AUTO) 2.1 % (0-6); HEMATOCRIT 35.9 % (42.0-52.0); HEMOGLOBIN 11.1 g/dl (14.0-17.9); LYMPHOCYTES # (AUTO) 0.6 X10'3 (1.1-4.8); MEAN CORPUSCULAR HEMOGLOBIN 26.5 PG (27.0-31.0); MEAN CORPUSCULAR HGB CONC 30.9 g/dL (33.0-36.5); MEAN CORPUSCULAR VOLUME 85.8 FL (78-98); MEAN PLATELET VOLUME 7.1 FL (7.4-10.4); MONOCYTES # (AUTO) 0.5 X10'3 (0-0.9); MONOCYTES % (AUTO) 5.7 % (2-12); NEUTROPHILS # (AUTO) 7.8 X10'3 (1.8-7.7); PLATELET COUNT 157 X10'3 (140-440); RED BLOOD COUNT 4.18 X10'6 (4.70-6.10); WHITE BLOOD COUNT 9.2 X10'3 (4.5-11.0)
[2023-05-08 07:26] LABS: ALANINE AMINOTRANSFERASE 16 U/L (12-78); ALBUMIN/GLOBULIN RATIO 0.9 (1.1-1.5); ALKALINE PHOSPHATASE 99 IU/L (46-116); ANION GAP 5 (8-16); ASPARTATE AMINO TRANSFERASE 26 U/L (10-37); BILIRUBIN,TOTAL 0.6 MG/DL (0.1-1.0); BLOOD UREA NITROGEN 30 MG/DL (7-18); BUN/CREATININE RATIO 20.7 (10.0-20.0); CALCIUM 8.3 MG/DL (8.5-10.1); CHLORIDE 102 MMOL/L (99-107); CREATININE 1.45 MG/DL (0.60-1.10); GLUCOSE 102 MG/DL (70-104); POTASSIUM 3.4 MMOL/L (3.5-5.1); SODIUM 140 MMOL/L (135-145); TOTAL CARBON DIOXIDE 33.1 MMOL/L (24-32); TOTAL PROTEIN 6.3 G/DL (6.4-8.2); eGFR 50 ML/MIN
[2023-05-08 08:05] LABS: ANISOCYTOSIS 3+; PLATELET ESTIMATE NORMAL
[2023-05-08] MEDS: metoprolol succinate 25mg (24-HOUR) SR. Tablet PO SCH (08:32)
[2023-05-08] MEDS: furosemide 40mg/4ml inj IV SCH ×2 (08:32→20:04)
[2023-05-08] MEDS: tamsulosin 0.4mg capsule PO SCH (08:32)
[2023-05-08] MEDS: levoFLOXACIN-Levaquin 250mg/D5 50 ML IV SCH (08:32)
[2023-05-08] MEDS: amiodarone 200mg tablet PO SCH ×2 (08:32→20:04)
[2023-05-08] MEDS: enoxaparin 60mg/0.6ml syringe SUBCUT SCH ×3 (08:39→20:05)
[2023-05-08 10:00] VITALS: BP 106/52
[2023-05-08] MEDS ORDERED: potassium Cl 20 mEq SR tablet PO PRN ×2 (11:10)
[2023-05-08] MEDS ORDERED: potassium Cl 40MEQ/1/2NS 520ml 520 ML IV PRN (11:10)
[2023-05-08] MEDS ORDERED: magnesium 4gm in 100ml NS 100 ML IV PRN (11:10)
[2023-05-08] MEDS ORDERED: magnesium 2GM in 50ml NS 50 ML IV PRN (11:10)
[2023-05-08] MEDS ORDERED: magnesium Cl slow-release 64mg tablet PO PRN (11:10)
[2023-05-08 11:27] LABS: MAGNESIUM 1.6 MG/DL (1.5-2.4)
[2023-05-08] MEDS: VANCOMYCIN 750MG IV in NS 250 ML IV SCH ×2 (11:39→21:25)
[2023-05-08 15:00] VITALS: BP 106/51
[2023-05-08 18:00] VITALS: BP 115/59
--- NOTE | 2023-05-08 18:30 | NUR ---
Patient in room PCU 3011. I have received report from YESSY Damon and had the opportunity to ask questions and assume patient care.
--- NOTE | 2023-05-08 18:31 | NUR ---
Problems reprioritized. Patient report given, questions answered & plan of care reviewed with YESSY FLOWER.
[2023-05-08] MEDS: K and/or MAG REPLACEMENT MC SCH (20:00)
[2023-05-08 22:00] VITALS: BP 119/58
[2023-05-09 02:00] VITALS: BP 108/47
[2023-05-09 06:06] VITALS: BP 109/57
[2023-05-09 06:17] LABS: BASOPHILS # (AUTO) 0.1 X10'3 (0-0.2); BASOPHILS % (AUTO) 1.5 % (0-1); EOSINOPHILS # (AUTO) 0.2 X10'3 (0-0.9); EOSINOPHILS % (AUTO) 2.9 % (0-6); HEMATOCRIT 35.6 % (42.0-52.0); HEMOGLOBIN 10.9 g/dl (14.0-17.9); LYMPHOCYTES # (AUTO) 0.7 X10'3 (1.1-4.8); LYMPHOCYTES % (AUTO) 9.4 % (21-51); MEAN CORPUSCULAR HEMOGLOBIN 26.3 PG (27.0-31.0); MEAN CORPUSCULAR HGB CONC 30.7 g/dL (33.0-36.5); MEAN CORPUSCULAR VOLUME 85.5 FL (78-98); MONOCYTES # (AUTO) 0.7 X10'3 (0-0.9); MONOCYTES % (AUTO) 8.9 % (2-12); NEUTROPHILS # (AUTO) 5.7 X10'3 (1.8-7.7); NEUTROPHILS % (AUTO) 77.3 % (42-75); PLATELET COUNT 142 X10'3 (140-440); RED BLOOD COUNT 4.16 X10'6 (4.70-6.10); RED CELL DISTRIBUTION WIDTH 22.9 % (11.5-14.5); WHITE BLOOD COUNT 7.4 X10'3 (4.5-11.0)
[2023-05-09 06:34] LABS: ALANINE AMINOTRANSFERASE 21 U/L (12-78); ALBUMIN 2.9 G/DL (3.4-5.0); ALBUMIN/GLOBULIN RATIO 0.9 (1.1-1.5); ALKALINE PHOSPHATASE 94 IU/L (46-116); ANION GAP 6 (8-16); ASPARTATE AMINO TRANSFERASE 25 U/L (10-37); BILIRUBIN,TOTAL 0.5 MG/DL (0.1-1.0); BLOOD UREA NITROGEN 25 MG/DL (7-18); BUN/CREATININE RATIO 19.2 (10.0-20.0); CALCIUM 8.4 MG/DL (8.5-10.1); CHLORIDE 102 MMOL/L (99-107); GLUCOSE 91 MG/DL (70-104); MAGNESIUM 1.7 MG/DL (1.5-2.4); POTASSIUM 3.5 MMOL/L (3.5-5.1); SODIUM 143 MMOL/L (135-145); TOTAL CARBON DIOXIDE 35.5 MMOL/L (24-32); TOTAL PROTEIN 6.2 G/DL (6.4-8.2); eGFR 56 ML/MIN
--- NOTE | 2023-05-09 06:46 | NUR ---
Problems reprioritized. Patient report given, questions answered & plan of care reviewed with YESSY Bartholomew.
[2023-05-09 07:46] LABS: TOTAL CELLS COUNTED 100
[2023-05-09 07:47] LABS: PLATELET ESTIMATE NORMAL
[2023-05-09 07:55] LABS: ANISOCYTOSIS 3+; HYPOCHROMASIA 1+
[2023-05-09 07:56] LABS: ELLIPTOCYTES 1+; SCHISTOCYTES FEW; STOMATOCYTES FEW; TEAR DROP CELLS FEW
[2023-05-09] MEDS: K and/or MAG REPLACEMENT MC SCH ×2 (08:00→20:00)
[2023-05-09] MEDS: enoxaparin 60mg/0.6ml syringe SUBCUT SCH ×2 (08:23→20:34)
[2023-05-09] MEDS: VANCOMYCIN 750MG IV in NS 250 ML IV SCH ×2 (08:23→22:53)
[2023-05-09] MEDS: tamsulosin 0.4mg capsule PO SCH (08:24)
[2023-05-09] MEDS: amiodarone 200mg tablet PO SCH ×2 (08:24→20:33)
[2023-05-09] MEDS: furosemide 40mg/4ml inj IV SCH ×2 (08:24→20:00)
[2023-05-09] MEDS: metoprolol succinate 25mg (24-HOUR) SR. Tablet PO SCH (08:24)
[2023-05-09] MEDS: levoFLOXACIN-Levaquin 250mg/D5 50 ML IV SCH (08:24)
[2023-05-09 10:10] VITALS: BP 93/53
--- NOTE | 2023-05-09 12:23 | NUR ---
Initial: Pt admit DX encephalopathy related to hypercapnia-resolved, afib, MADDY w/ CKD 3, pulmonary edema w/ possible CHF, and hx Ileostomy per EMR. Pt hx vomiting MINERAL SURVEYOR though no bowel obstruction per MD note. Pt PO 100% avg heart healthy/2L fluid restricted diet since allowed PO past 2 days per EMR. Overall partially meeting needs given initial 2-day NPO period though current trends meeting estimated needs. Ileostomy 1200-1400ml output past 2 days since PO initiation per EMR; RD d/w RN regarding anti-diarrheal if elevated output persists and physician agreeable. Will continue to follow. Rec: 1. continue heart healthy/2L fluid-restricted diet per MD 2. Monitor Ileostomy output trends for diet change needs 3. Consider anti-diarrheal if elevated Ileostomy output persists per physician discretion 4. Daily scaled wt Addendum: 05/09/23 at [address] Amended: Links added.
[2023-05-09] MEDS ORDERED: ondansetron 4mg rapidly disintigrating tab PO PRN (12:41)
[2023-05-09] MEDS: metolazone 2.5mg tablet PO SCH (13:58)
[2023-05-09 15:15] VITALS: BP 93/54
[2023-05-09 18:00] VITALS: BP 93/54
--- NOTE | 2023-05-09 18:15 | NUR ---
Patient in room PCU 3011. I have received report from YESSY CISNEROS and had the opportunity to ask questions and assume patient care.
[2023-05-09] MEDS ORDERED: VANCOMYCIN LEVEL IV ONE (20:30)
[2023-05-09 22:00] VITALS: BP 108/53
--- NOTE | 2023-05-09 22:10 | NUR ---
Lab called of Vanco trough 20.1. Pharmacy informed of the result and Pharmacist Kenyetta told this radio news writer to give the Vanco as ordered, Charge Nurse made aware. IV Saline lock on left arm been bleeding and pt c/o pain on the site, needle pulled and put G#22 on the right arm w/o any problem.
[2023-05-10 02:00] VITALS: BP 111/54
[2023-05-10 06:00] VITALS: BP 112/54
--- NOTE | 2023-05-10 06:20 | NUR ---
Problems reprioritized. Patient report given, questions answered & plan of care reviewed with YESSY LINDSAY.
--- NOTE | 2023-05-10 06:50 | NUR ---
Spoke with Pharmacist Melissa who will call me back re: vancomycin when the clinical pharmacist comes in Patients Creat 1.30 and VT last night was 20.1 just want to clarify we are continuing with the the 750mg dosing.
[2023-05-10 07:12] LABS: BASOPHILS # (AUTO) 0.1 X10'3 (0-0.2); LYMPHOCYTES # (AUTO) 0.8 X10'3 (1.1-4.8); MEAN CORPUSCULAR HEMOGLOBIN 26.6 PG (27.0-31.0); MONOCYTES # (AUTO) 0.7 X10'3 (0-0.9)
[2023-05-10 07:18] LABS: BASOPHILS % (AUTO) 1.3 % (0-1); EOSINOPHILS # (AUTO) 0.2 X10'3 (0-0.9); EOSINOPHILS % (AUTO) 3.2 % (0-6); HEMATOCRIT 35.3 % (42.0-52.0); LYMPHOCYTES % (AUTO) 10.4 % (21-51); MEAN CORPUSCULAR HGB CONC 31.1 g/dL (33.0-36.5); MEAN CORPUSCULAR VOLUME 85.4 FL (78-98); MEAN PLATELET VOLUME 8.2 FL (7.4-10.4); MONOCYTES % (AUTO) 9.8 % (2-12); NEUTROPHILS # (AUTO) 5.6 X10'3 (1.8-7.7); NEUTROPHILS % (AUTO) 75.3 % (42-75); PLATELET COUNT 136 X10'3 (140-440); RED BLOOD COUNT 4.14 X10'6 (4.70-6.10); RED CELL DISTRIBUTION WIDTH 23.4 % (11.5-14.5); WHITE BLOOD COUNT 7.4 X10'3 (4.5-11.0)
[2023-05-10 07:38] LABS: ALANINE AMINOTRANSFERASE 31 U/L (12-78); ALBUMIN 2.8 G/DL (3.4-5.0); ALBUMIN/GLOBULIN RATIO 0.9 (1.1-1.5); ALKALINE PHOSPHATASE 96 IU/L (46-116); ANION GAP 5 (8-16); ASPARTATE AMINO TRANSFERASE 38 U/L (10-37); BILIRUBIN,TOTAL 0.6 MG/DL (0.1-1.0); BLOOD UREA NITROGEN 22 MG/DL (7-18); BUN/CREATININE RATIO 17.7 (10.0-20.0); CALCIUM 8.2 MG/DL (8.5-10.1); CHLORIDE 101 MMOL/L (99-107); CREATININE 1.24 MG/DL (0.60-1.10); GLUCOSE 85 MG/DL (70-104); MAGNESIUM 1.6 MG/DL (1.5-2.4); POTASSIUM 3.3 MMOL/L (3.5-5.1); SODIUM 144 MMOL/L (135-145); eGFR 59 ML/MIN
[2023-05-10 07:40] LABS: ANISOCYTOSIS 3+; ELLIPTOCYTES FEW; MICROCYTOSIS 1+; PLATELET ESTIMATE DECREASED
[2023-05-10] MEDS: amiodarone 200mg tablet PO SCH (07:41)
[2023-05-10] MEDS: furosemide 40mg/4ml inj IV SCH (07:41)
[2023-05-10] MEDS: acetaminophen 325mg tablet PO PRN (07:42)
[2023-05-10] MEDS: metoprolol succinate 25mg (24-HOUR) SR. Tablet PO SCH (07:42)
[2023-05-10] MEDS: tamsulosin 0.4mg capsule PO SCH (07:42)
[2023-05-10] MEDS: levoFLOXACIN-Levaquin 250mg/D5 50 ML IV SCH (07:42)
[2023-05-10] MEDS: enoxaparin 60mg/0.6ml syringe SUBCUT SCH (07:42)
[2023-05-10] MEDS: metolazone 2.5mg tablet PO SCH (07:42)
[2023-05-10] MEDS: acetaZOLAMIDE 250mg tablet PO SCH ×2 (08:00→13:00)
[2023-05-10] MEDS: K and/or MAG REPLACEMENT MC SCH (08:00)
[2023-05-10] MEDS ORDERED: vancomycin inj 500 MG in normal saline 100ml IV soln 100 ML IV SCH (09:00)
[2023-05-10 11:00] VITALS: BP 114/58
[2023-05-10] MEDS ORDERED: ZAR2.5T PO (12:01)
--- NOTE | 2023-05-10 12:59 | NUR ---
Per Dr Hernandez don't give Diamox
--- NOTE | 2023-05-10 13:12 | NUR ---
O2 Sat at rest on room air:___% If below 89%: Recovery O2 Sat at rest on ___LPM:___%:___% via (mask/nasal cannula, etc..) No further documentation is necessary. If O2 Sat did not drop below 89% on room air,ambulate patient on room air. O2 Sat while ambulating on room air:85% Recovery O2 Sat while ambulating on 1 LPM:96% No further documentation is necessary. If patient does not drop below 89% while ambulating, he/she does not qualify for home O2.
[2023-05-10 15:00] VITALS: BP 109/54
--- NOTE | 2023-05-10 16:17 | NUR ---
PRESSURE ULCER EDUCATION: DEFINITION: A pressure ulcer is an area of skin that breaks down when you stay in one position too long. The constant pressure against the skin reduces the blood flow to that area and the affected tissue dies. CAUSES: "Being bedridden or in a wheelchair "Fragile skin "Having a chronic condition, such as diabetes or vascular disease "Inability to move certain parts of your body without assistance "Older age "Incontinence of urine or stool SYMPTOMS: "A reddened area that DOES NOT turn white when pressed on - this can be the beginning of a pressure ulcer "A blister, deep sore or a crater - these can be advanced pressure ulcers FIRST AID: "Relieve the pressure on this area "Keep the area clean and dry "Call your primary doctor if you see any of the above symptoms "DO NOT massage the area "DO NOT use a donut shaped or ring shaped pillow- these actually interfere with the blood flow and cause complications PREVENTION: "Check for pressure ulcers everyday "Change position at least every two hours to relieve pressure "Use items that help relieve pressure- pillows, sheepskin, foam padding, and powders. "Keep skin clean and dry "Eat healthy well balanced meals "Exercise daily IF YOU SEE ANY OF THESE SYMPTOMS WHILE IN THE HOSPITAL - TELL YOUR NURSE IMMEDIATELY. IF YOU SEE ANY OF THESE SYMPTOMS WHILE AT HOME OR HAVE ANY QUESTIONS OR CONCERNS ABOUT PRESSURE ULCERS - CALL YOUR PRIMARY DOCTOR IMMEDIATELY. Addendum: 05/10/23 at 1618 by Verna Woodard RN Amended: Links added.
--- NOTE | 2023-05-10 16:30 | NUR ---
Patient discharge instructions reviewed with patient and patient verbalized understanding. Patient wrist skin tears were redressed due to some bleeding. Sent patient home with dressings. Patients oxygen was delivered by [facility] bedside and patient was instructed in use. Patient IV dc'd cannula intact. Patient shorts were very wet in a bag. PCT went to ER and got patient clean shorts. Patient was taken to his vehicle via wheelchair. Oxygen concentrator.
--- NOTE | 2023-05-10 16:57 | NUR ---
Called patients new medication to Lisbet mladonado at [facility] in [place] and spoke to Jono the Pharmacist
[2023-05-11] MEDS ORDERED: levoFLOXACIN 250mg tablet PO SCH (11:00)
[2023-05-11] MEDS ORDERED: VANCOMYCIN LEVEL IV ONE (20:30)
== END 2023-05-10 16:24 | disposition home or self-care (01) | DRG 291 ==
LOC: ER 21:56 → ED HOLD 05-05 05:31 → PCU 3S 05-05 12:04
PROVIDERS: ADMIT Internal Medicine; ATTEND Family Medicine
PROC: 5A09357 Assistance with Respiratory Ventilation, Less than 24 Consecutive Hours, Continuous Positive Airway Pressure (ICD-10-PCS; principal; 2023-05-05)
DX: I13.0 Hypertensive heart and chronic kidney disease with heart failure and stage 1 through stage 4 chronic kidney disease, or unspecified chronic kidney disease (principal); I50.43 Acute on chronic combined systolic (congestive) and diastolic (congestive) heart failure; N17.0 Acute kidney failure with tubular necrosis; G93.40 Encephalopathy, unspecified; N18.30 Chronic kidney disease, stage 3 unspecified; R06.89 Other abnormalities of breathing; J44.9 Chronic obstructive pulmonary disease, unspecified; G24.01 Drug induced subacute dyskinesia; T43.3X5A Adverse effect of phenothiazine antipsychotics and neuroleptics, initial encounter; Y92.238 Other place in hospital as the place of occurrence of the external cause; N40.0 Benign prostatic hyperplasia without lower urinary tract symptoms; I48.91 Unspecified atrial fibrillation; R09.02 Hypoxemia; Z87.442 Personal history of urinary calculi; Z88.0 Allergy status to penicillin; Z88.1 Allergy status to other antibiotic agents; Z88.5 Allergy status to narcotic agent; Z88.7 Allergy status to serum and vaccine; Z79.899 Other long term (current) drug therapy
CPT/HCPCS: 36415; 36600; 70450; 71045; 74176; 80053; 80202; 82803; 82948; 83735; 83880; 84484; 85007; 85008; 85018; 85025; 85610; 87081; 93970; 94660; 94760; 97110; 97116; 97161; 97530; 99285; A4371; A4421; A4615; A4620; A4649; A6212; A6213; A6222; A6223; A6449; G0378; J0780; J1200; J1650; J1940; J1956; J2405; J3370; J3490; J7030; J7050

== ENCOUNTER 2023-07-19 11:47 | Inpatient (IN) | payer BC, MEDICAID ==
[~2023-07-19] VITALS: Ht 175.3 cm; Wt 116.4 kg
[~2023-07-19 11:47] MED LIST changes: +METO-395 PO; -METO-539 PO; +ZAR2.5T PO
[2023-07-19 14:24] LABS: BASOPHILS # (AUTO) 0.2 X10'3 (0-0.2); BASOPHILS % (AUTO) 1.1 % (0-1); EOSINOPHILS # (AUTO) 0.3 X10'3 (0-0.9); EOSINOPHILS % (AUTO) 1.4 % (0-6); HEMATOCRIT 42.9 % (42.0-52.0); HEMOGLOBIN 12.4 g/dl (14.0-17.9); LYMPHOCYTES # (AUTO) 1.5 X10'3 (1.1-4.8); LYMPHOCYTES % (AUTO) 7.8 % (21-51); MEAN CORPUSCULAR HEMOGLOBIN 22.4 PG (27.0-31.0); MEAN CORPUSCULAR HGB CONC 28.9 g/dL (33.0-36.5); MEAN CORPUSCULAR VOLUME 77.5 FL (78-98); MEAN PLATELET VOLUME 6.8 FL (7.4-10.4); MONOCYTES # (AUTO) 1.3 X10'3 (0-0.9); MONOCYTES % (AUTO) 6.7 % (2-12); NEUTROPHILS # (AUTO) 16.2 X10'3 (1.8-7.7); PLATELET COUNT 312 X10'3 (140-440); RED BLOOD COUNT 5.54 X10'6 (4.70-6.10); RED CELL DISTRIBUTION WIDTH 21.7 % (11.5-14.5); WHITE BLOOD COUNT 19.5 X10'3 (4.5-11.0)
[2023-07-19 14:36] LABS: ALANINE AMINOTRANSFERASE 21 U/L (12-78); ALBUMIN 3.2 G/DL (3.4-5.0); ALBUMIN/GLOBULIN RATIO 0.8 (1.1-1.5); ALKALINE PHOSPHATASE 116 IU/L (46-116); ANION GAP 1 (8-16); ASPARTATE AMINO TRANSFERASE 22 U/L (10-37); BILIRUBIN,TOTAL 0.5 MG/DL (0.1-1.0); BLOOD UREA NITROGEN 36 MG/DL (7-18); BUN/CREATININE RATIO 19.1 (10.0-20.0); CALCIUM 8.6 MG/DL (8.5-10.1); CHLORIDE 103 MMOL/L (99-107); CREATININE 1.88 MG/DL (0.60-1.10); GLUCOSE 118 MG/DL (70-104); POTASSIUM 5.4 MMOL/L (3.5-5.1); SODIUM 136 MMOL/L (135-145); TOTAL CARBON DIOXIDE 31.9 MMOL/L (24-32); eCRCL 41 ML/MIN; eGFR 37 ML/MIN
[2023-07-19 14:57] LABS: ANISOCYTOSIS 3+; HYPOCHROMASIA 1+; MICROCYTOSIS 1+; PLATELET ESTIMATE NORMAL; TOTAL CELLS COUNTED 100
[2023-07-19 14:58] LABS: TOXIC GRANULATION 1+
[2023-07-19 14:59] LABS: ELLIPTOCYTES FEW; POLYCHROMASIA FEW; SCHISTOCYTES FEW; TEAR DROP CELLS FEW
[2023-07-19 15:34] LABS: BILIRUBIN,URINE NEGATIVE (Neg); CLARITY,URINE CLOUDY (Clear); COLOR,URINE YELLOW (Yellow); GLUCOSE, URINE 250 mg/dl (Neg); KETONES,URINE NEGATIVE (Neg); LEUKOCYTE ESTERASE ,URINE SMALL (Neg); NITRITES, URINE POSITIVE (Neg); OCCULT BLOOD,URINE SMALL (Neg); PROTEIN,URINE >=300 mg/dl (Neg); UROBILINOGEN,URINE 0.2 E.U/dL (0.2-1.0)
[2023-07-19 15:41] LABS: UA COLLECTION TYPE NON-SPECIFIED
[2023-07-19 15:43] LABS: BACTERIA,URINE 1+ /HPF (Neg); MUCUS STRANDS NONE SEEN /LPF (Neg); SQUAMOUS EPITHELIAL CELL,UR NONE SEEN /LPF (FEW); WBC,URINE 50-100 /HPF (0-4)
[2023-07-19 15:44] LABS: FINE GRANULAR CAST 0-3 /LPF (NEGATIVE); RENAL CELLS, URINE FEW /HPF; WBC CLUMPS,URINE FEW /HPF (NEGATIVE)
[2023-07-19] MEDS ORDERED: METO-384 PO (16:08)
[2023-07-19] MEDS ORDERED: FURO20TA4 PO (16:08)
[2023-07-19] MEDS ORDERED: AMI200T PO (16:08)
[2023-07-19] MEDS ORDERED: SULF1TAB45 PO (16:08)
[2023-07-19] MEDS ORDERED: POTA-206 PO (16:08)
[2023-07-19] MEDS: ciprofloxacin lact 400MG/200ML 200 ML IV SCH ×2 (16:43→20:55)
[2023-07-19] MEDS ORDERED: normal saline 1000ML IV soln IVB ONE (17:10)
[2023-07-19] MEDS ORDERED: magnesium hydroxide 30ml (MOM) UD suspension PO PRN (17:50)
[2023-07-19] MEDS ORDERED: metoclopramide 5 mg/ml inj IV PRN (17:50)
[2023-07-19] MEDS ORDERED: magnesium 4gm in 100ml NS 100 ML IV PRN (17:50)
[2023-07-19] MEDS ORDERED: ondansetron/PF 4mg/2ml inj IV PRN (17:50)
[2023-07-19] MEDS ORDERED: magnesium 2GM in 50ml NS 50 ML IV PRN (17:50)
[2023-07-19] MEDS ORDERED: albuterol 2.5 MG/3 ML nebule NEB PRN (17:50)
[2023-07-19] MEDS ORDERED: magnesium Cl slow-release 64mg tablet PO PRN (17:50)
[2023-07-19] MEDS ORDERED: potassium Cl 20 mEq SR tablet PO PRN ×2 (17:50)
[2023-07-19] MEDS ORDERED: potassium Cl 40MEQ/1/2NS 520ml 520 ML IV PRN (17:50)
[2023-07-19] MEDS ORDERED: mag hydrox/Alum hydrox/simeth 30ml oral suspension PO PRN (17:50)
[2023-07-19] MEDS ORDERED: acetaminophen 325mg tablet PO PRN ×2 (17:50)
[2023-07-19] MEDS: normal saline 1000ml 1,000 ML IV SCH (18:27)
[2023-07-19] MEDS: K and/or MAG REPLACEMENT MC SCH (20:00)
[2023-07-19] MEDS ORDERED: heparin, porcine 5000 units/ml vial SQ SCH (20:00)
[2023-07-19] MEDS: docusate sod 100mg capsule PO SCH (20:36)
[2023-07-19] MEDS: apixaban 5mg tablet PO SCH (20:37)
[2023-07-19] MEDS: amiodarone 200mg tablet PO SCH (20:37)
[2023-07-19 20:53] LABS: HEMOGLOBIN A1C 7.1 % (4.5-6.2)
[2023-07-19 20:59] LABS: FREE T4 (FREE THYROXINE) 0.97 NG/DL (0.73-1.40); PRO BRAIN NATRIURETIC PEPTIDE 4111 PG/ML (0-125); THYROID STIMULATING HORMONE 2.56 ulU/ml (0.34-4.50)
[2023-07-19 21:21] LABS: MAGNESIUM 1.9 MG/DL (1.5-2.4); POTASSIUM 4.8 MMOL/L (3.5-5.1)
--- NOTE | 2023-07-19 23:16 | NUR ---
CALLED DR MINER TO NOTIFY OF PTS HR INCREASING INTO 140S ORDERS FOR 250 ML ALBUMIN TO RAISE BP THEN 10 MG IV CARDIZEM
[2023-07-19] MEDS ORDERED: diltiazem 5mg/ml 5ml inj. IV ONE (23:20)
[2023-07-19] MEDS ORDERED: albumin (Human) 5% 250ml 250 ML IV ONE (23:20)
[2023-07-20] VITALS (8 sets, daily range): BP systolic 81–123; BP diastolic 58–78; PULSE 63–101; RESP 14–24; TEMP 97.4–98.4; O2SAT 91–96
[2023-07-20] MEDS ORDERED: diltiazem 5mg/ml 5ml inj. IV ONE (01:50)
[2023-07-20 04:18] LABS: APTT 29 SECONDS (22-32); INR 1.1 INR; PROTHROMBIN TIME 11.7 SECONDS (9.0-12.0)
[2023-07-20 04:27] LABS: ALANINE AMINOTRANSFERASE 20 U/L (12-78); ALBUMIN 2.9 G/DL (3.4-5.0); ALBUMIN/GLOBULIN RATIO 0.8 (1.1-1.5); ALKALINE PHOSPHATASE 103 IU/L (46-116); ANION GAP 4 (8-16); ASPARTATE AMINO TRANSFERASE 18 U/L (10-37); BILIRUBIN,TOTAL 0.5 MG/DL (0.1-1.0); BLOOD UREA NITROGEN 35 MG/DL (7-18); BUN/CREATININE RATIO 18.9 (10.0-20.0); CALCIUM 8.1 MG/DL (8.5-10.1); CHLORIDE 104 MMOL/L (99-107); CHOL/HDL RATIO 3.2 (0.00-4.99); CHOLESTEROL 110 MG/DL (0-200); CREATININE 1.85 MG/DL (0.60-1.10); GLUCOSE 140 MG/DL (70-104); HDL CHOLESTEROL 34 MG/DL (35-60); LDL CHOLESTEROL 61 MG/DL (50-100); PHOSPHORUS 4.4 MG/DL (2.3-4.5); POTASSIUM 5.3 MMOL/L (3.5-5.1); SODIUM 139 MMOL/L (135-145); TOTAL CARBON DIOXIDE 30.8 MMOL/L (24-32); TOTAL PROTEIN 6.7 G/DL (6.4-8.2); TRIGLYCERIDES 90 MG/DL (20-135); eCRCL 42 ML/MIN; eGFR 37 ML/MIN
[2023-07-20 04:45] LABS: MEAN CORPUSCULAR HEMOGLOBIN 22.5 PG (27.0-31.0)
[2023-07-20 04:47] LABS: BASOPHILS # (AUTO) 0.2 X10'3 (0-0.2); BASOPHILS % (AUTO) 1.2 % (0-1); EOSINOPHILS # (AUTO) 0.2 X10'3 (0-0.9); EOSINOPHILS % (AUTO) 1.5 % (0-6); HEMOGLOBIN 12.6 g/dl (14.0-17.9); LYMPHOCYTES # (AUTO) 1.3 X10'3 (1.1-4.8); LYMPHOCYTES % (AUTO) 8.1 % (21-51); MEAN CORPUSCULAR HGB CONC 28.6 g/dL (33.0-36.5); MEAN CORPUSCULAR VOLUME 78.4 FL (78-98); MEAN PLATELET VOLUME 7.2 FL (7.4-10.4); MONOCYTES % (AUTO) 6.2 % (2-12); PLATELET COUNT 300 X10'3 (140-440); RED BLOOD COUNT 5.61 X10'6 (4.70-6.10); RED CELL DISTRIBUTION WIDTH 21.5 % (11.5-14.5); WHITE BLOOD COUNT 15.7 X10'3 (4.5-11.0)
--- NOTE | 2023-07-20 05:29 | NUR ---
PT PLACED ON HOSPITAL BED
[2023-07-20 06:45] LABS: ANISOCYTOSIS 3+; MICROCYTOSIS 1+; PLATELET ESTIMATE NORMAL; TOTAL CELLS COUNTED 100
[2023-07-20 06:48] LABS: POIKILOCYTOSIS FEW
[2023-07-20] MEDS: apixaban 5mg tablet PO SCH ×2 (07:56→21:17)
[2023-07-20] MEDS: docusate sod 100mg capsule PO SCH ×2 (07:56→21:17)
[2023-07-20] MEDS: tamsulosin 0.4mg capsule PO SCH (07:56)
[2023-07-20] MEDS: amiodarone 200mg tablet PO SCH ×2 (07:56→21:17)
[2023-07-20] MEDS: metoprolol succinate 25mg (24-HOUR) SR. Tablet PO SCH (07:57)
[2023-07-20] MEDS: ciprofloxacin lact 400MG/200ML 200 ML IV SCH ×2 (08:00→21:20)
[2023-07-20] MEDS: K and/or MAG REPLACEMENT MC SCH ×2 (08:00→20:00)
[2023-07-20] MEDS: pantoprazole 40MG/NS 100ML BAG 100 ML IV SCH (08:00)
[2023-07-20] MEDS: furosemide 40mg/4ml inj IV SCH ×2 (11:37→21:20)
[2023-07-20] MEDS: normal saline 1000ml 1,000 ML IV SCH (12:04)
[2023-07-20] MEDS ORDERED: ondansetron 4mg rapidly disintigrating tab PO PRN (13:09)
--- NOTE | 2023-07-20 13:32 | NUR ---
Page Sent PAGER ID: [phone] MESSAGE: Fahad Herrera4-States he is having chest pressure, ekg ordered
--- NOTE | 2023-07-20 14:07 | NUR ---
Per EMR pt with T2DM, well controlled with A1c 7.1%. Written DM education with RD contact information placed in patient's chart. Will remain available. Addendum: 07/20/23 at [address] Amended: Links added.
--- NOTE | 2023-07-20 18:31 | NUR ---
Patient in room PCU 3008. I have received report from marquise frank and had the opportunity to ask questions and assume patient care.
--- NOTE | 2023-07-20 18:31 | NUR ---
Problems reprioritized. Patient report given, questions answered & plan of care reviewed with Annie. Addendum: 07/20/23 at 1831 by Ferdinand Elliott RN Amended: Links added.
[2023-07-21] VITALS (9 sets, daily range): BP systolic 81–144; BP diastolic 43–68; PULSE 80–106; RESP 12–20; TEMP 98.2–99.4; O2SAT 92–98
--- NOTE | 2023-07-21 06:09 | NUR ---
Problems reprioritized. Patient report given, questions answered & plan of care reviewed with marquise rn.
--- NOTE | 2023-07-21 06:25 | NUR ---
Patient in room U 3008. I have received report from Annie and had the opportunity to ask questions and assume patient care. Addendum: 07/21/23 at 0625 by Ferdinand Elliott RN Amended: Links added.
[2023-07-21 06:35] LABS: BASOPHILS # (AUTO) 0.2 X10'3 (0-0.2); BASOPHILS % (AUTO) 1.1 % (0-1); EOSINOPHILS # (AUTO) 0.2 X10'3 (0-0.9); EOSINOPHILS % (AUTO) 1.6 % (0-6); HEMATOCRIT 43.6 % (42.0-52.0); HEMOGLOBIN 12.5 g/dl (14.0-17.9); LYMPHOCYTES # (AUTO) 1.2 X10'3 (1.1-4.8); LYMPHOCYTES % (AUTO) 8.5 % (21-51); MEAN CORPUSCULAR HEMOGLOBIN 22.4 PG (27.0-31.0); MEAN CORPUSCULAR HGB CONC 28.6 g/dL (33.0-36.5); MEAN CORPUSCULAR VOLUME 78.4 FL (78-98); MEAN PLATELET VOLUME 6.9 FL (7.4-10.4); MONOCYTES % (AUTO) 6.6 % (2-12); NEUTROPHILS # (AUTO) 11.9 X10'3 (1.8-7.7); NEUTROPHILS % (AUTO) 82.2 % (42-75); PLATELET COUNT 273 X10'3 (140-440); RED BLOOD COUNT 5.56 X10'6 (4.70-6.10); WHITE BLOOD COUNT 14.5 X10'3 (4.5-11.0)
[2023-07-21 06:38] LABS: APTT 30 SECONDS (22-32); INR 1.1 INR; PROTHROMBIN TIME 11.9 SECONDS (9.0-12.0)
[2023-07-21 06:58] LABS: ALANINE AMINOTRANSFERASE 19 U/L (12-78); ALBUMIN/GLOBULIN RATIO 0.8 (1.1-1.5); ALKALINE PHOSPHATASE 105 IU/L (46-116); ANION GAP 7 (8-16); ASPARTATE AMINO TRANSFERASE 21 U/L (10-37); BILIRUBIN,TOTAL 0.4 MG/DL (0.1-1.0); BLOOD UREA NITROGEN 41 MG/DL (7-18); BUN/CREATININE RATIO 18.6 (10.0-20.0); CALCIUM 8.3 MG/DL (8.5-10.1); CHLORIDE 101 MMOL/L (99-107); GLUCOSE 158 MG/DL (70-104); MAGNESIUM 1.9 MG/DL (1.5-2.4); PHOSPHORUS 5.5 MG/DL (2.3-4.5); POTASSIUM 5.3 MMOL/L (3.5-5.1); SODIUM 136 MMOL/L (135-145); TOTAL CARBON DIOXIDE 28.2 MMOL/L (24-32); TOTAL PROTEIN 6.8 G/DL (6.4-8.2); eCRCL 35 ML/MIN; eGFR 31 ML/MIN
[2023-07-21 07:28] LABS: TOTAL CELLS COUNTED 100
[2023-07-21 07:29] LABS: ANISOCYTOSIS 3+; MICROCYTOSIS 1+; PLATELET ESTIMATE NORMAL
[2023-07-21 07:30] LABS: BURR CELLS FEW; ELLIPTOCYTES FEW; POLYCHROMASIA FEW; TEAR DROP CELLS FEW
--- NOTE | 2023-07-21 07:41 | NUR ---
This RN has reviewed and agrees with the HEAT TREATER HELPER's physical assessment of this pt.
[2023-07-21] MEDS: docusate sod 100mg capsule PO SCH ×2 (08:00→20:00)
[2023-07-21] MEDS: pantoprazole 40MG/NS 100ML BAG 100 ML IV SCH (08:00)
[2023-07-21] MEDS: K and/or MAG REPLACEMENT MC SCH ×2 (08:00→20:00)
[2023-07-21] MEDS: furosemide 40mg/4ml inj IV SCH ×2 (08:23→20:00)
[2023-07-21] MEDS: metoprolol succinate 25mg (24-HOUR) SR. Tablet PO SCH (08:24)
[2023-07-21] MEDS: EMPAGLIFLOZIN 25 MG TABLET PO SCH (08:24)
[2023-07-21] MEDS: apixaban 5mg tablet PO SCH ×2 (08:24→21:48)
[2023-07-21] MEDS: tamsulosin 0.4mg capsule PO SCH (08:25)
[2023-07-21] MEDS: ciprofloxacin lact 400MG/200ML 200 ML IV SCH (08:25)
[2023-07-21] MEDS: lisinopril 2.5mg tablet PO SCH (08:25)
[2023-07-21] MEDS: amiodarone 200mg tablet PO SCH ×2 (08:32→21:48)
[2023-07-21] MEDS: normal saline 1000ml 1,000 ML IV SCH (09:36)
--- NOTE | 2023-07-21 18:27 | NUR ---
Problems reprioritized. Patient report given, questions answered & plan of care reviewed with Kaela. Addendum: 07/21/23 at 1828 by Ferdinand Elliott RN Amended: Links added.
--- NOTE | 2023-07-21 22:19 | NUR ---
pt's colostomy bag was changed due to leakage
--- NOTE | 2023-07-21 22:41 | NUR ---
notified of pts b/p of 81/43 with HR of 74. New order is to give iv albumin 500mg now once. if b/p is still low after the albumin, start pt on dopamine drip.
[2023-07-21] MEDS ORDERED: albumin (Human) 5% 250ml 500 ML IV ONE (22:45)
[2023-07-22] VITALS (9 sets, daily range): BP systolic 66–90; BP diastolic 29–56; PULSE 78–110; RESP 16–21; TEMP 97.4–99.2; O2SAT 95–98
[2023-07-22 06:31] LABS: APTT 31 SECONDS (22-32); INR 1.1 INR; PROTHROMBIN TIME 12.1 SECONDS (9.0-12.0)
--- NOTE | 2023-07-22 06:40 | NUR ---
Problems reprioritized. Patient report given, questions answered & plan of care reviewed with Sandy.
[2023-07-22 06:50] LABS: ALANINE AMINOTRANSFERASE 17 U/L (12-78); ALBUMIN 3.1 G/DL (3.4-5.0); ALKALINE PHOSPHATASE 89 IU/L (46-116); ANION GAP 9 (8-16); ASPARTATE AMINO TRANSFERASE 18 U/L (10-37); BILIRUBIN,TOTAL 0.5 MG/DL (0.1-1.0); BLOOD UREA NITROGEN 50 MG/DL (7-18); BUN/CREATININE RATIO 16.5 (10.0-20.0); CALCIUM 8.2 MG/DL (8.5-10.1); CHLORIDE 101 MMOL/L (99-107); CREATININE 3.03 MG/DL (0.60-1.10); GLUCOSE 125 MG/DL (70-104); PHOSPHORUS 5.5 MG/DL (2.3-4.5); POTASSIUM 4.8 MMOL/L (3.5-5.1); SODIUM 135 MMOL/L (135-145); TOTAL CARBON DIOXIDE 24.7 MMOL/L (24-32); TOTAL PROTEIN 6.3 G/DL (6.4-8.2); eCRCL 26 ML/MIN; eGFR 21 ML/MIN
[2023-07-22 07:39] LABS: BASOPHILS # (AUTO) 0.2 X10'3 (0-0.2); BASOPHILS % (AUTO) 1.1 % (0-1); EOSINOPHILS # (AUTO) 0.3 X10'3 (0-0.9); EOSINOPHILS % (AUTO) 2.3 % (0-6); HEMATOCRIT 40.3 % (42.0-52.0); HEMOGLOBIN 11.3 g/dl (14.0-17.9); LYMPHOCYTES % (AUTO) 6.3 % (21-51); MEAN CORPUSCULAR HEMOGLOBIN 21.8 PG (27.0-31.0); MEAN CORPUSCULAR HGB CONC 28.2 g/dL (33.0-36.5); MEAN CORPUSCULAR VOLUME 77.4 FL (78-98); MEAN PLATELET VOLUME 7.5 FL (7.4-10.4); MONOCYTES % (AUTO) 6.5 % (2-12); NEUTROPHILS # (AUTO) 12.9 X10'3 (1.8-7.7); NEUTROPHILS % (AUTO) 83.8 % (42-75); PLATELET COUNT 263 X10'3 (140-440); RED CELL DISTRIBUTION WIDTH 21.4 % (11.5-14.5); WHITE BLOOD COUNT 15.4 X10'3 (4.5-11.0)
[2023-07-22] MEDS: K and/or MAG REPLACEMENT MC SCH ×2 (08:00→20:00)
[2023-07-22] MEDS: metoprolol succinate 25mg (24-HOUR) SR. Tablet PO SCH (08:00)
[2023-07-22] MEDS: lisinopril 2.5mg tablet PO SCH (08:00)
[2023-07-22] MEDS: pantoprazole 40MG/NS 100ML BAG 100 ML IV SCH (08:00)
[2023-07-22] MEDS: furosemide 20 MG/2 ML vial IV SCH ×2 (08:00→20:00)
[2023-07-22] MEDS: EMPAGLIFLOZIN 25 MG TABLET PO SCH (08:55)
[2023-07-22] MEDS: docusate sod 100mg capsule PO SCH ×2 (08:56→20:00)
[2023-07-22] MEDS: amiodarone 200mg tablet PO SCH ×2 (08:56→20:27)
[2023-07-22] MEDS: tamsulosin 0.4mg capsule PO SCH (08:56)
[2023-07-22] MEDS: apixaban 5mg tablet PO SCH ×2 (08:56→20:27)
--- NOTE | 2023-07-22 10:17 | NUR ---
Patient in room PCU 3008. I have received report from Sandy BARNARD and had the opportunity to ask questions and assume patient care.
[2023-07-22] MEDS: DOBUTamine-DoBUTrex 500mg/D5W 250 ML IV SCH ×2 (10:46→22:00)
--- NOTE | 2023-07-22 11:03 | NUR ---
CONTRACT ADMINISTRATIVE ASSISTANT documentation: RN has reviewed interventions, assessments performed and documented by Sandy BARNARD.
[2023-07-22 14:15] LABS: ANISOCYTOSIS 3+; MICROCYTOSIS 1+; PLATELET ESTIMATE NORMAL; TOTAL CELLS COUNTED 100
[2023-07-22 14:16] LABS: BURR CELLS FEW; ELLIPTOCYTES FEW; SCHISTOCYTES FEW; TEAR DROP CELLS FEW
--- NOTE | 2023-07-22 18:35 | NUR ---
Problems reprioritized. Patient report given, questions answered & plan of care reviewed with Paula RN, patient stable at transfer of care.
[2023-07-23] VITALS (25 sets, daily range): BP systolic 70–125; BP diastolic 31–79; PULSE 85–129; RESP 11–22; TEMP 97.9–98.9; O2SAT 88–98
--- NOTE | 2023-07-23 01:49 | NUR ---
MD notified of pt's decrease in b/p, 71/30 with heart rate of 78 with automatic cuff and 72/50 with manual cuff. New order is to increase pt's Dobutamine drip from 5mcg to 10mcg to maintain map of 65 and above.
[2023-07-23] MEDS: DOBUTamine-DoBUTrex 500mg/D5W 250 ML IV SCH ×3 (02:05→17:47)
--- NOTE | 2023-07-23 05:42 | NUR ---
notified of pt's systolic b/p in the 80's with map below 60. Order is to give iv albumin 500mg once
[2023-07-23] MEDS ORDERED: albumin (Human) 5% 250ml 500 ML IV ONE (05:55)
[2023-07-23 06:19] LABS: INR 1.1 INR; PROTHROMBIN TIME 11.8 SECONDS (9.0-12.0)
[2023-07-23 06:27] LABS: HEMOGLOBIN 10.9 g/dl (14.0-17.9); PLATELET COUNT 243 X10'3 (140-440)
[2023-07-23 06:29] LABS: BASOPHILS # (AUTO) 0.1 X10'3 (0-0.2); EOSINOPHILS # (AUTO) 0.1 X10'3 (0-0.9); EOSINOPHILS % (AUTO) 0.6 % (0-6); LYMPHOCYTES # (AUTO) 0.8 X10'3 (1.1-4.8); LYMPHOCYTES % (AUTO) 5.6 % (21-51); MEAN CORPUSCULAR HEMOGLOBIN 22.3 PG (27.0-31.0); MEAN CORPUSCULAR HGB CONC 28.6 g/dL (33.0-36.5); MEAN CORPUSCULAR VOLUME 77.7 FL (78-98); MEAN PLATELET VOLUME 8.4 FL (7.4-10.4); MONOCYTES # (AUTO) 0.8 X10'3 (0-0.9); MONOCYTES % (AUTO) 5.8 % (2-12); NEUTROPHILS # (AUTO) 12.2 X10'3 (1.8-7.7); RED BLOOD COUNT 4.89 X10'6 (4.70-6.10); RED CELL DISTRIBUTION WIDTH 21.6 % (11.5-14.5)
--- NOTE | 2023-07-23 06:49 | NUR ---
Problems reprioritized. Patient report given, questions answered & plan of care reviewed with Leelee
--- NOTE | 2023-07-23 06:49 | NUR ---
Patient in room PCU 3008. I have received report from YESSY MARVIN, and had the opportunity to ask questions and assume patient care.
[2023-07-23] MEDS: normal saline 1000ml 1,000 ML IV SCH ×2 (06:50→21:08)
[2023-07-23 07:03] LABS: ALANINE AMINOTRANSFERASE 15 U/L (12-78); ALBUMIN 2.9 G/DL (3.4-5.0); ALBUMIN/GLOBULIN RATIO 0.9 (1.1-1.5); ALKALINE PHOSPHATASE 85 IU/L (46-116); ANION GAP 11 (8-16); ASPARTATE AMINO TRANSFERASE 13 U/L (10-37); BILIRUBIN,TOTAL 0.5 MG/DL (0.1-1.0); BLOOD UREA NITROGEN 57 MG/DL (7-18); BUN/CREATININE RATIO 14.2 (10.0-20.0); CALCIUM 7.5 MG/DL (8.5-10.1); CHLORIDE 101 MMOL/L (99-107); CREATININE 4.02 MG/DL (0.60-1.10); GLUCOSE 136 MG/DL (70-104); MAGNESIUM 1.7 MG/DL (1.5-2.4); PHOSPHORUS 5.8 MG/DL (2.3-4.5); POTASSIUM 4.9 MMOL/L (3.5-5.1); SODIUM 133 MMOL/L (135-145); TOTAL PROTEIN 6.1 G/DL (6.4-8.2); eCRCL 19 ML/MIN; eGFR 15 ML/MIN
[2023-07-23] MEDS: docusate sod 100mg capsule PO SCH ×2 (07:30→20:00)
[2023-07-23] MEDS: apixaban 5mg tablet PO SCH ×2 (07:30→22:10)
[2023-07-23] MEDS: EMPAGLIFLOZIN 25 MG TABLET PO SCH (07:30)
[2023-07-23] MEDS: tamsulosin 0.4mg capsule PO SCH (07:30)
[2023-07-23] MEDS: amiodarone 200mg tablet PO SCH ×2 (07:32→22:10)
[2023-07-23] MEDS: K and/or MAG REPLACEMENT MC SCH ×2 (08:00→20:00)
[2023-07-23] MEDS: metoprolol succinate 25mg (24-HOUR) SR. Tablet PO SCH (08:00)
[2023-07-23] MEDS: lisinopril 2.5mg tablet PO SCH (08:00)
[2023-07-23] MEDS: pantoprazole 40MG/NS 100ML BAG 100 ML IV SCH (08:48)
[2023-07-23 11:05] LABS: ANISOCYTOSIS 3+; ELLIPTOCYTES 1+; MICROCYTOSIS 1+; PLATELET ESTIMATE NORMAL; SCHISTOCYTES FEW; TOTAL CELLS COUNTED 100
[2023-07-23 11:06] LABS: BURR CELLS FEW
[2023-07-23 11:07] LABS: HYPOCHROMASIA 1+
--- NOTE | 2023-07-23 13:09 | NUR ---
PT REMOVES HIS BP CUFF. PT EDUCATED ON THE REASON OF CONTINUOUS BP MONITORING, BUT CONTINUES TO REMOVE.
[2023-07-23 13:28] LABS: SODIUM,URINE RANDOM < 15 MEQ/L; TOTAL PROTEIN,URINE RANDOM 71.3 MG/DL
--- NOTE | 2023-07-23 13:30 | NUR ---
Late Entry PRESSURE ULCER EDUCATION: DEFINITION: A pressure ulcer is an area of skin that breaks down when you stay in one position too long. The constant pressure against the skin reduces the blood flow to that area and the affected tissue dies. CAUSES: "Being bedridden or in a wheelchair "Fragile skin "Having a chronic condition, such as diabetes or vascular disease "Inability to move certain parts of your body without assistance "Older age "Incontinence of urine or stool SYMPTOMS: "A reddened area that DOES NOT turn white when pressed on - this can be the beginning of a pressure ulcer "A blister, deep sore or a crater - these can be advanced pressure ulcers FIRST AID: "Relieve the pressure on this area "Keep the area clean and dry "Call your primary doctor if you see any of the above symptoms "DO NOT massage the area "DO NOT use a donut shaped or ring shaped pillow- these actually interfere with the blood flow and cause complications PREVENTION: "Check for pressure ulcers everyday "Change position at least every two hours to relieve pressure "Use items that help relieve pressure- pillows, sheepskin, foam padding, and powders. "Keep skin clean and dry "Eat healthy well balanced meals "Exercise daily IF YOU SEE ANY OF THESE SYMPTOMS WHILE IN THE HOSPITAL - TELL YOUR NURSE IMMEDIATELY. IF YOU SEE ANY OF THESE SYMPTOMS WHILE AT HOME OR HAVE ANY QUESTIONS OR CONCERNS ABOUT PRESSURE ULCERS - CALL YOUR PRIMARY DOCTOR IMMEDIATELY. Addendum: 07/24/23 at 0908 by Darleen Manuel LVN Amended: Links added.
[2023-07-23] MEDS ORDERED: LidoCAINE 2% Topical Jelly 11mL syringe TOP ONE ×2 (14:00→23:25)
--- NOTE | 2023-07-23 17:01 | NUR ---
2 NURSES ATTEMPTED TO INSERT FALCON CATHETER. OBTAINED AN ORDER TO INSERT A COUDE CATH, BUT UNABLE TO INSERT. DR. ABREU NOTIFIED. ASKED FOR FURTHER ORDERS AND WAS ASKED TO ENTER AN ORDER FOR A BLADDER SCAN.
--- NOTE | 2023-07-23 18:21 | NUR ---
Problems reprioritized. Patient report given, questions answered & plan of care reviewed with YESSY CABELLO.
[2023-07-23] MEDS ORDERED: NORepinephrine 8mg/ 250ml NS 250 ML IV SCH (19:55)
[2023-07-23] MEDS: NORepinephrine 8mg/ 250ml NS 250 ML IV SCH (20:03)
--- NOTE | 2023-07-23 21:05 | NUR ---
Report over phone, pt not yet to room.
--- NOTE | 2023-07-23 21:30 | NUR ---
Pt came back from ct lab and was transferred to icu by his primary nurse and an aide on a bed with his belongings. report was given to the icu nurse via phone.
--- NOTE | 2023-07-23 21:50 | NUR ---
Pt to bed in room 2014. Assessed as charted.
[2023-07-23] MEDS: nystatin 15 GM powder TP SCH (22:10)
--- NOTE | 2023-07-23 23:03 | NUR ---
Rounds with Debow.
--- NOTE | 2023-07-23 23:56 | NUR ---
Uribe Catheter again attempted without success. Lidocaine jelly used. Uribe inserted to hub without return of urine. It was not hard to pass and seemed not to be obstructed but caused Pt pain when tried to inflate balloon. Will put in urology consult as ordered by Che if uribe attempt failed. Minimal blood noted from procedure.
[2023-07-24] VITALS (15 sets, daily range): BP systolic 86–127; BP diastolic 39–78; PULSE 86–114; RESP 12–25; TEMP 97.6–98.4; O2SAT 92–96
[2023-07-24] MEDS: DOBUTamine-DoBUTrex 500mg/D5W 250 ML IV SCH ×3 (01:34→17:33)
[2023-07-24] MEDS: normal saline 1000ml 1,000 ML IV SCH (02:00)
[2023-07-24 06:08] LABS: BASOPHILS # (AUTO) 0.1 X10'3 (0-0.2); EOSINOPHILS # (AUTO) 0.1 X10'3 (0-0.9); EOSINOPHILS % (AUTO) 0.9 % (0-6); HEMATOCRIT 36.1 % (42.0-52.0); HEMOGLOBIN 10.3 g/dl (14.0-17.9); LYMPHOCYTES # (AUTO) 0.9 X10'3 (1.1-4.8); LYMPHOCYTES % (AUTO) 6.9 % (21-51); MEAN CORPUSCULAR HEMOGLOBIN 21.8 PG (27.0-31.0); MEAN CORPUSCULAR HGB CONC 28.6 g/dL (33.0-36.5); MEAN CORPUSCULAR VOLUME 76.4 FL (78-98); MEAN PLATELET VOLUME 6.8 FL (7.4-10.4); MONOCYTES % (AUTO) 7.7 % (2-12); NEUTROPHILS # (AUTO) 11.2 X10'3 (1.8-7.7); NEUTROPHILS % (AUTO) 83.5 % (42-75); PLATELET COUNT 213 X10'3 (140-440); RED BLOOD COUNT 4.72 X10'6 (4.70-6.10); RED CELL DISTRIBUTION WIDTH 21.4 % (11.5-14.5); WHITE BLOOD COUNT 13.4 X10'3 (4.5-11.0)
[2023-07-24 06:24] LABS: INR 1.1 INR; PROTHROMBIN TIME 11.6 SECONDS (9.0-12.0)
--- NOTE | 2023-07-24 06:30 | NUR ---
Problems reprioritized. Patient report given, questions answered & plan of care reviewed with Heydi KRISHNAMURTHY.
[2023-07-24 06:39] LABS: ALANINE AMINOTRANSFERASE 13 U/L (12-78); ALBUMIN 2.9 G/DL (3.4-5.0); ALBUMIN/GLOBULIN RATIO 0.9 (1.1-1.5); ALKALINE PHOSPHATASE 79 IU/L (46-116); ANION GAP 9 (8-16); ASPARTATE AMINO TRANSFERASE 13 U/L (10-37); BILIRUBIN,TOTAL 0.5 MG/DL (0.1-1.0); BLOOD UREA NITROGEN 56 MG/DL (7-18); BUN/CREATININE RATIO 14.2 (10.0-20.0); CALCIUM 7.5 MG/DL (8.5-10.1); CHLORIDE 101 MMOL/L (99-107); CREATININE 3.93 MG/DL (0.60-1.10); GLUCOSE 112 MG/DL (70-104); MAGNESIUM 1.8 MG/DL (1.5-2.4); PHOSPHORUS 6.4 MG/DL (2.3-4.5); POTASSIUM 5.1 MMOL/L (3.5-5.1); SODIUM 132 MMOL/L (135-145); TOTAL CARBON DIOXIDE 22.3 MMOL/L (24-32); eCRCL 20 ML/MIN; eGFR 16 ML/MIN
[2023-07-24 06:40] LABS: TOTAL CELLS COUNTED 100
[2023-07-24 06:41] LABS: ANISOCYTOSIS 3+; MICROCYTOSIS 1+; PLATELET ESTIMATE NORMAL
[2023-07-24 06:42] LABS: ELLIPTOCYTES 1+; HYPOCHROMASIA 1+
[2023-07-24 06:43] LABS: BURR CELLS FEW; SCHISTOCYTES FEW
[2023-07-24 06:44] LABS: POIKILOCYTOSIS FEW
--- NOTE | 2023-07-24 06:53 | NUR ---
Patient in room CICU 2013. I have received report from YESSY Palomino and had the opportunity to ask questions and assume patient care.
[2023-07-24] MEDS: NORepinephrine 8mg/ 250ml NS 250 ML IV SCH ×2 (07:31→18:59)
[2023-07-24] MEDS: metoprolol succinate 25mg (24-HOUR) SR. Tablet PO SCH (08:00)
[2023-07-24] MEDS: lisinopril 2.5mg tablet PO SCH (08:00)
[2023-07-24] MEDS: EMPAGLIFLOZIN 25 MG TABLET PO SCH (08:00)
[2023-07-24] MEDS: K and/or MAG REPLACEMENT MC SCH ×2 (08:00→19:00)
[2023-07-24] MEDS: apixaban 5mg tablet PO SCH ×2 (08:14→19:35)
[2023-07-24] MEDS: tamsulosin 0.4mg capsule PO SCH (08:14)
[2023-07-24] MEDS: docusate sod 100mg capsule PO SCH ×2 (08:14→19:00)
[2023-07-24] MEDS: amiodarone 200mg tablet PO SCH ×2 (08:15→19:34)
[2023-07-24] MEDS: pantoprazole 40MG/NS 100ML BAG 100 ML IV SCH (08:36)
[2023-07-24] MEDS ORDERED: proCHLORperazine 10 MG/2 ml inj IV PRN (10:40)
--- NOTE | 2023-07-24 11:30 | NUR ---
Patient complaint of nausea and vomitting, green bile noted, offered zofran patient declined
--- NOTE | 2023-07-24 12:07 | NUR ---
Initial: Pt admit for acute cystitis, A.fib with RVR, MADDY, and CHF exacerbation. Currently on a 2 g Na restricted diet and overall eating well with mostly 75-100% PO intake though given occasional 25% PO intake pt with average 65% PO intake since admit meeting 70% estimated energy needs and 81% estimated protein needs. Pt seen by fiberglass autobody repairer with recommendations for a 1.2 L/day fluid restriction. Pt with a colostomy in place, documented with 1100 mL stool output 07/23 per I&O. Pt receiving routine bowel care. Will continue to follow and monitor need for nutrition intervention pending additional trends in PO intake given adequate PO intake of most meals. Recommendations: 1) Consider liberalizing to regular diet given hyponatremia; lipid panel WNL with the exception of low HDL and BG well controlled throughout LOS with A1c 7.1% 2) Monitor need for ONS/additional protein 3) Bowel care per rx 4) Weekly scaled weights Addendum: 07/24/23 at [address] Amended: Links added.
--- NOTE | 2023-07-24 14:37 | NUR ---
Dr Almaguer by to evaluate patient, stated no surgical management at this time, also no placement of a uribe catheter at this time. Post void bladder scans, if volume greater than 300 a uribe placement may be warranted
[2023-07-24] MEDS: nystatin 15 GM powder TP SCH ×2 (16:30→19:35)
[2023-07-24] MEDS: phenazopyridine 100mg tablet PO SCH ×2 (16:55→17:31)
[2023-07-24] MEDS: finasteride 5mg tablet PO SCH (16:56)
--- NOTE | 2023-07-24 18:30 | NUR ---
Patient in room CICU 2013. I have received report from Heydi KRISHNAMURTHY and had the opportunity to ask questions and assume patient care.
--- NOTE | 2023-07-24 21:33 | NUR ---
Pt has been struggling to urinate. He fails to use a urinal, so amount voided each time is unknown. He bears down and grunts and feels the urge almost continuously. Urine is bloody and a few clots have been noted, which is no change from when the urologist saw him earlier today. Post void residual shows 340ml, but pt refuses to have another uribe placement attempted unless he is under sedation. Pt was made aware that sedation is not used that lidocaine jelly can be utilized. Urologist will have to reevaluate again tomorrow to place uribe for pt.
[2023-07-25] VITALS (17 sets, daily range): BP systolic 76–139; BP diastolic 31–84; PULSE 74–112; RESP 13–20; TEMP 97.4–98; O2SAT 90–96
--- NOTE | 2023-07-25 01:40 | NUR ---
Pt continues to retain and have pain and difficulty passing urine. Dr Almaguer notified, She asked to have urology cart ready. Dr Longo called for anesthesia risk, he said he will come to bedside to assess.
[2023-07-25 02:29] LABS: BASOPHILS # (AUTO) 0.2 X10'3 (0-0.2); BASOPHILS % (AUTO) 1.2 % (0-1); EOSINOPHILS # (AUTO) 0.2 X10'3 (0-0.9); EOSINOPHILS % (AUTO) 1.1 % (0-6); LYMPHOCYTES # (AUTO) 0.8 X10'3 (1.1-4.8); LYMPHOCYTES % (AUTO) 5.5 % (21-51); MEAN PLATELET VOLUME 7.4 FL (7.4-10.4); MONOCYTES % (AUTO) 6.8 % (2-12); NEUTROPHILS # (AUTO) 12.7 X10'3 (1.8-7.7); NEUTROPHILS % (AUTO) 85.4 % (42-75); PLATELET COUNT 217 X10'3 (140-440); WHITE BLOOD COUNT 14.9 X10'3 (4.5-11.0)
[2023-07-25 02:33] LABS: ALANINE AMINOTRANSFERASE 15 U/L (12-78); ALBUMIN 3.1 G/DL (3.4-5.0); ALKALINE PHOSPHATASE 84 IU/L (46-116); ANION GAP 8 (8-16); ASPARTATE AMINO TRANSFERASE 15 U/L (10-37); BILIRUBIN,TOTAL 0.8 MG/DL (0.1-1.0); BLOOD UREA NITROGEN 59 MG/DL (7-18); CALCIUM 7.7 MG/DL (8.5-10.1); CHLORIDE 99 MMOL/L (99-107); CREATININE 3.68 MG/DL (0.60-1.10); GLUCOSE 110 MG/DL (70-104); POTASSIUM 5.6 MMOL/L (3.5-5.1); SODIUM 131 MMOL/L (135-145); TOTAL CARBON DIOXIDE 23.6 MMOL/L (24-32); TOTAL PROTEIN 6.2 G/DL (6.4-8.2); eCRCL 21 ML/MIN; eGFR 17 ML/MIN
[2023-07-25 02:39] LABS: PRO BRAIN NATRIURETIC PEPTIDE 2440 PG/ML (0-125)
[2023-07-25] MEDS ORDERED: HYDROmorphone 1 mg/ml syringe IV ONE (02:40)
[2023-07-25] MEDS ORDERED: LidoCAINE 2% Topical Jelly 11mL syringe MM ONE (02:40)
--- NOTE | 2023-07-25 03:10 | NUR ---
Dr Almaguer at bedside.
[2023-07-25 03:19] LABS: HEMATOCRIT 33.6 % (42.0-52.0); HEMOGLOBIN 10.6 g/dl (14.0-17.9); MEAN CORPUSCULAR HEMOGLOBIN 22.8 PG (27.0-31.0); MEAN CORPUSCULAR HGB CONC 31.5 g/dL (33.0-36.5); MEAN CORPUSCULAR VOLUME 72.5 FL (78-98); RED BLOOD COUNT 4.63 X10'6 (4.70-6.10); RED CELL DISTRIBUTION WIDTH 20.9 % (11.5-14.5)
--- NOTE | 2023-07-25 03:30 | NUR ---
Baeza placed, Blade held for bleeding issues.
--- NOTE | 2023-07-25 06:20 | NUR ---
Problems reprioritized. Patient report given, questions answered & plan of care reviewed with Srinivasan KRISHNAMURTHY.
--- NOTE | 2023-07-25 06:21 | NUR ---
Patient in room CICU 2013. I have received report from Georgette KRISHNAMURTHY and had the opportunity to ask questions and assume patient care.
[2023-07-25] MEDS: NORepinephrine 8mg/ 250ml NS 250 ML IV SCH ×2 (06:27→17:55)
[2023-07-25] MEDS ORDERED: ondansetron/PF 4mg/2ml inj ONE (07:34)
[2023-07-25] MEDS ORDERED: ondansetron/PF 4mg/2ml inj IV PRN (07:35)
[2023-07-25] MEDS: tamsulosin 0.4mg capsule PO SCH (07:37)
[2023-07-25] MEDS: amiodarone 200mg tablet PO SCH ×2 (07:37→21:57)
[2023-07-25] MEDS: EMPAGLIFLOZIN 25 MG TABLET PO SCH (07:37)
[2023-07-25] MEDS: docusate sod 100mg capsule PO SCH ×2 (07:37→20:00)
[2023-07-25] MEDS: nystatin 15 GM powder TP SCH ×2 (07:38→21:57)
[2023-07-25] MEDS: phenazopyridine 100mg tablet PO SCH ×3 (07:38→16:56)
[2023-07-25] MEDS: pantoprazole 40MG/NS 100ML BAG 100 ML IV SCH (07:38)
[2023-07-25] MEDS: K and/or MAG REPLACEMENT MC SCH ×2 (07:38→20:00)
[2023-07-25] MEDS: DOBUTamine-DoBUTrex 500mg/D5W 250 ML IV SCH (07:59)
[2023-07-25] MEDS ORDERED: dextrose 50%-water 50ml dispensing syringe IV ONE (08:15)
[2023-07-25] MEDS ORDERED: calcium chloride 100 MG/1 ML inj IV ONE (08:15)
[2023-07-25] MEDS ORDERED: insulin regular, human 10 units/0.1 ml syringe IV ONE (08:15)
[2023-07-25] MEDS: albuterol 2.5 MG/3 ML nebule CONTNEB SCH ×2 (08:15→09:15)
--- NOTE | 2023-07-25 09:07 | NUR ---
Patient up on a chair at bedside.
[2023-07-25] MEDS: finasteride 5mg tablet PO SCH (09:22)
--- NOTE | 2023-07-25 09:49 | NUR ---
Calcium IVP unable to administer, IV site to left forearm and right hand is painful,paged Dr. Pederson.
--- NOTE | 2023-07-25 09:52 | NUR ---
Spoke to Dr. Pederson,ordered to non admin calcium IVP will repeat labs today.
--- NOTE | 2023-07-25 10:28 | NUR ---
Dr. Pederson at bedside, made aware about eliquiz on hold due to hematuria, RN also requested prn for nausea/vomiting since zofran ineffective.New order for compazine 10mg q6 hours prn noted.
[2023-07-25] MEDS ORDERED: proCHLORperazine 10 MG/2 ml inj IV PRN (10:30)
[2023-07-25 11:07] LABS: ALBUMIN 2.9 G/DL (3.4-5.0); ANION GAP 10 (8-16); BLOOD UREA NITROGEN 60 MG/DL (7-18); BUN/CREATININE RATIO 15.7 (10.0-20.0); CALCIUM 8.1 MG/DL (8.5-10.1); CHLORIDE 104 MMOL/L (99-107); CREATININE 3.81 MG/DL (0.60-1.10); GLUCOSE 98 MG/DL (70-104); POTASSIUM 5.4 MMOL/L (3.5-5.1); SODIUM 133 MMOL/L (135-145); TOTAL CARBON DIOXIDE 19.2 MMOL/L (24-32); eCRCL 20 ML/MIN; eGFR 16 ML/MIN
[2023-07-25] MEDS ORDERED: thiamine 100mg/ml 2ml inj. IM STA (14:17)
--- NOTE | 2023-07-25 14:31 | NUR ---
Dr. Streeter/director of pharmacy at bedside,no dialysis needed at this time.
--- NOTE | 2023-07-25 17:28 | NUR ---
sbar given to Fidelia/MORTGAGE LOAN CLOSER.
--- NOTE | 2023-07-25 17:45 | NUR ---
Patient in room PCU 3021. I have received report from Srinivasan and had the opportunity to ask questions and assume patient care.
--- NOTE | 2023-07-25 18:05 | NUR ---
Patient transferred to PCU room 3021.Joshua KRISHNAMURTHY at bedside.
--- NOTE | 2023-07-25 18:05 | NUR ---
Patient brought to PCU. I tucked him in and gave him ice water and juice. He is currently eating dinner and I will be reporting off to [facility] nurse.
--- NOTE | 2023-07-25 18:43 | NUR ---
Problems reprioritized. Patient report given, questions answered & plan of care reviewed with Janet.
[2023-07-26] VITALS (18 sets, daily range): BP systolic 75–102; BP diastolic 31–50; PULSE 76–113; RESP 12–22; TEMP 97.7–100; O2SAT 86–95
[2023-07-26 00:16] LABS: ALBUMIN 2.9 G/DL (3.4-5.0); ANION GAP 8 (8-16); BLOOD UREA NITROGEN 65 MG/DL (7-18); BUN/CREATININE RATIO 15.5 (10.0-20.0); CALCIUM 7.7 MG/DL (8.5-10.1); CHLORIDE 102 MMOL/L (99-107); GLUCOSE 126 MG/DL (70-104); SODIUM 133 MMOL/L (135-145); TOTAL CARBON DIOXIDE 22.8 MMOL/L (24-32); eCRCL 18 ML/MIN; eGFR 15 ML/MIN
[2023-07-26 00:22] LABS: POTASSIUM 6.3 MMOL/L (3.5-5.1)
[2023-07-26] MEDS ORDERED: insulin regular, human 10 units/0.1 ml syringe IV ONE ×2 (00:45→07:35)
[2023-07-26] MEDS ORDERED: sodium polystyrene sulfonate 15gm/60ml oral suspension PO ONE (00:45)
[2023-07-26] MEDS ORDERED: dextrose 50%-water 50ml dispensing syringe IV ONE ×2 (00:45→07:35)
[2023-07-26] MEDS ORDERED: CALCIUM GLUC 1gm/50ml NACL,iso 50 ML IV PRN (00:45)
[2023-07-26] MEDS ORDERED: sodium bicarbonate (8.4%) 1 mEq/ml syringe IV ONE (00:45)
[2023-07-26] MEDS ORDERED: NORepinephrine 8mg/ 250ml NS 250 ML IV SCH (04:25)
--- NOTE | 2023-07-26 05:20 | NUR ---
Called by charge nurse Kia to evaluate patient for possible transfer back to CICU; pt hypotensive and Dr. Longo notified and requesting patient to be started on levophed and transfer back to CICU; upon arrival, pt sleepy but arousable, SBP 80s, continues on dobutamine at 5mcg; spoke w/Dr. Longo and MD requested telemedicine consult to be done; camera brought to patient's room for video consult; pt remains awake, answering questions appropriately; dobutamine turned off per MD for brief time w/no significant change in BP; SBP remains in the 80s w/MAP 58-60; patient to remain on dobutamine at 5mcg, no levophed for now and pt to remain on PCU per Dr. Brooks.
[2023-07-26] MEDS: DOBUTamine-DoBUTrex 500mg/D5W 250 ML IV SCH ×2 (05:28→21:17)
--- NOTE | 2023-07-26 06:00 | NUR ---
Problems reprioritized. Patient report given Leelee KRISHNAMURTHY questions answered & plan of care reviewed with .
[2023-07-26 06:41] LABS: BASOPHILS # (AUTO) 0.1 X10'3 (0-0.2); BASOPHILS % (AUTO) 0.9 % (0-1); EOSINOPHILS # (AUTO) 0.1 X10'3 (0-0.9); EOSINOPHILS % (AUTO) 0.8 % (0-6); HEMATOCRIT 31.6 % (42.0-52.0); HEMOGLOBIN 9.1 g/dl (14.0-17.9); LYMPHOCYTES # (AUTO) 0.6 X10'3 (1.1-4.8); MEAN CORPUSCULAR HEMOGLOBIN 22.2 PG (27.0-31.0); MEAN CORPUSCULAR VOLUME 76.8 FL (78-98); MEAN PLATELET VOLUME 7.2 FL (7.4-10.4); NEUTROPHILS % (AUTO) 87.3 % (42-75); PLATELET COUNT 191 X10'3 (140-440); RED BLOOD COUNT 4.11 X10'6 (4.70-6.10); RED CELL DISTRIBUTION WIDTH 21.2 % (11.5-14.5)
[2023-07-26 07:03] LABS: ALANINE AMINOTRANSFERASE 14 U/L (12-78); ALBUMIN 2.9 G/DL (3.4-5.0); ALKALINE PHOSPHATASE 78 IU/L (46-116); ANION GAP 9 (8-16); ASPARTATE AMINO TRANSFERASE 16 U/L (10-37); BILIRUBIN,TOTAL 0.6 MG/DL (0.1-1.0); BLOOD UREA NITROGEN 66 MG/DL (7-18); BUN/CREATININE RATIO 14.6 (10.0-20.0); CALCIUM 7.8 MG/DL (8.5-10.1); CHLORIDE 103 MMOL/L (99-107); CREATININE 4.51 MG/DL (0.60-1.10); GLUCOSE 69 MG/DL (70-104); POTASSIUM 5.7 MMOL/L (3.5-5.1); SODIUM 134 MMOL/L (135-145); TOTAL CARBON DIOXIDE 21.7 MMOL/L (24-32); TOTAL PROTEIN 5.9 G/DL (6.4-8.2); eCRCL 17 ML/MIN; eGFR 13 ML/MIN
--- NOTE | 2023-07-26 07:10 | NUR ---
Patient in room PCU 3021. I have received report from AKIL NIELSON, and had the opportunity to ask questions and assume patient care.
[2023-07-26] MEDS ORDERED: calcium chloride 100 MG/1 ML inj IV ONE (07:35)
[2023-07-26] MEDS ORDERED: albuterol 2.5 MG/3 ML nebule CONTNEB SCH (07:35)
[2023-07-26] MEDS ORDERED: thiamine 100mg/ml 2ml inj. IM SCH (08:00)
[2023-07-26] MEDS: nystatin 15 GM powder TP SCH ×2 (08:00→20:22)
[2023-07-26 08:02] LABS: PLATELET ESTIMATE NORMAL; TOTAL CELLS COUNTED 100
[2023-07-26 08:03] LABS: ANISOCYTOSIS 3+; ELLIPTOCYTES FEW; HYPOCHROMASIA 1+; MICROCYTOSIS 1+; TEAR DROP CELLS FEW
[2023-07-26] MEDS: phenazopyridine 100mg tablet PO SCH ×3 (09:50→18:18)
[2023-07-26] MEDS: amiodarone 200mg tablet PO SCH ×2 (09:51→21:18)
[2023-07-26] MEDS: tamsulosin 0.4mg capsule PO SCH (09:51)
[2023-07-26] MEDS: docusate sod 100mg capsule PO SCH ×2 (09:51→21:18)
[2023-07-26] MEDS: finasteride 5mg tablet PO SCH (09:52)
[2023-07-26] MEDS: pantoprazole 40MG/NS 100ML BAG 100 ML IV SCH (10:33)
[2023-07-26] MEDS: K and/or MAG REPLACEMENT MC SCH ×2 (11:20→20:00)
[2023-07-26] MEDS ORDERED: LIDOcaine 1% 30ml preserv. free vial ONE (12:38)
[2023-07-26] MEDS ORDERED: midazolam 1 mg/ML 2ml injection ONE (12:38)
[2023-07-26] MEDS ORDERED: fentaNYL/PF 50MCG/1 ML 2ML syringe ONE (12:38)
[2023-07-26] MEDS ORDERED: heparin 1,000unit/ml 10ml vial 10 ML ONE (12:38)
[2023-07-26] MEDS ORDERED: EPOETIN ALFA-EPBX 20,000 UNIT/ML 1 ML MDV IV ONE (13:10)
[2023-07-26] MEDS ORDERED: albumin (human) 25% 100ml IV 100 ML IV PRN (13:10)
[2023-07-26] MEDS ORDERED: mannitol 12.5gm/50mL VIAL IV ONE (13:10)
[2023-07-26] MEDS ORDERED: heparin 1,000 units/ml 10ml inj HE ONE ×2 (13:15)
[2023-07-26 20:16] LABS: ALBUMIN, UR Note: % (.); PROTEIN,TOTAL,URINE 53.5 mg/dL (Not Estab.)
[2023-07-26] MEDS: ciprofloxacin/D5W 200mg/100mL 100 ML IV SCH (21:19)
[2023-07-26 21:58] LABS: ALBUMIN 2.8 G/DL (3.4-5.0); ANION GAP 8 (8-16); BLOOD UREA NITROGEN 69 MG/DL (7-18); BUN/CREATININE RATIO 15.5 (10.0-20.0); CALCIUM 7.7 MG/DL (8.5-10.1); CHLORIDE 102 MMOL/L (99-107); CREATININE 4.46 MG/DL (0.60-1.10); GLUCOSE 135 MG/DL (70-104); POTASSIUM 5.8 MMOL/L (3.5-5.1); SODIUM 132 MMOL/L (135-145); eCRCL 17 ML/MIN; eGFR 14 ML/MIN
[2023-07-27] VITALS (15 sets, daily range): BP systolic 91–113; BP diastolic 35–69; PULSE 70–109; RESP 16–22; TEMP 98.2–99.2; O2SAT 93–97
[2023-07-27 07:37] LABS: BASOPHILS # (AUTO) 0.1 X10'3 (0-0.2); BASOPHILS % (AUTO) 1.2 % (0-1); EOSINOPHILS # (AUTO) 0.1 X10'3 (0-0.9); EOSINOPHILS % (AUTO) 0.6 % (0-6); LYMPHOCYTES # (AUTO) 0.7 X10'3 (1.1-4.8); LYMPHOCYTES % (AUTO) 6.1 % (21-51); MEAN PLATELET VOLUME 7.5 FL (7.4-10.4); MONOCYTES # (AUTO) 0.7 X10'3 (0-0.9); MONOCYTES % (AUTO) 6.3 % (2-12); NEUTROPHILS # (AUTO) 9.8 X10'3 (1.8-7.7); NEUTROPHILS % (AUTO) 85.8 % (42-75); PLATELET COUNT 171 X10'3 (140-440); WHITE BLOOD COUNT 11.4 X10'3 (4.5-11.0)
[2023-07-27 07:43] LABS: ALANINE AMINOTRANSFERASE 12 U/L (12-78); ALBUMIN 2.7 G/DL (3.4-5.0); ALBUMIN/GLOBULIN RATIO 0.9 (1.1-1.5); ALKALINE PHOSPHATASE 75 IU/L (46-116); ANION GAP 7 (8-16); ASPARTATE AMINO TRANSFERASE 13 U/L (10-37); BILIRUBIN,TOTAL 0.5 MG/DL (0.1-1.0); BLOOD UREA NITROGEN 68 MG/DL (7-18); BUN/CREATININE RATIO 16.5 (10.0-20.0); CALCIUM 7.5 MG/DL (8.5-10.1); CHLORIDE 103 MMOL/L (99-107); CREATININE 4.13 MG/DL (0.60-1.10); GLUCOSE 134 MG/DL (70-104); POTASSIUM 5.4 MMOL/L (3.5-5.1); SODIUM 132 MMOL/L (135-145); TOTAL CARBON DIOXIDE 21.9 MMOL/L (24-32); TOTAL PROTEIN 5.7 G/DL (6.4-8.2); eCRCL 19 ML/MIN; eGFR 15 ML/MIN
[2023-07-27] MEDS: tamsulosin 0.4mg capsule PO SCH (07:53)
[2023-07-27] MEDS: amiodarone 200mg tablet PO SCH ×2 (07:53→21:17)
[2023-07-27] MEDS: phenazopyridine 100mg tablet PO SCH ×3 (07:53→21:17)
[2023-07-27] MEDS: nystatin 15 GM powder TP SCH ×2 (07:54→20:00)
[2023-07-27] MEDS: pantoprazole 40MG/NS 100ML BAG 100 ML IV SCH (07:57)
[2023-07-27] MEDS: finasteride 5mg tablet PO SCH (07:57)
[2023-07-27] MEDS: docusate sod 100mg capsule PO SCH ×2 (08:00→20:00)
[2023-07-27] MEDS: K and/or MAG REPLACEMENT MC SCH (08:00)
[2023-07-27] MEDS: ciprofloxacin/D5W 200mg/100mL 100 ML IV SCH ×2 (08:19→21:16)
[2023-07-27 08:44] LABS: HEMATOCRIT 29.5 % (42.0-52.0); HEMOGLOBIN 9.1 g/dl (14.0-17.9); MEAN CORPUSCULAR HEMOGLOBIN 23.3 PG (27.0-31.0); MEAN CORPUSCULAR HGB CONC 30.8 g/dL (33.0-36.5); MEAN CORPUSCULAR VOLUME 75.7 FL (78-98); RED CELL DISTRIBUTION WIDTH 20.5 % (11.5-14.5)
[2023-07-27 08:52] LABS: NUCLEATED RED BLOOD CELLS 1 /100WBC (0-0); PLATELET ESTIMATE NORMAL; TOTAL CELLS COUNTED 100
[2023-07-27 08:53] LABS: ACANTHOCYTES FEW; ANISOCYTOSIS 3+; BURR CELLS FEW; ELLIPTOCYTES 1+; HYPOCHROMASIA 1+; MICROCYTOSIS 1+; POLYCHROMASIA FEW; TEAR DROP CELLS 1+
--- NOTE | 2023-07-27 10:15 | NUR ---
repositioned pt for comfort. pt states he feels much better.will monitor.
--- NOTE | 2023-07-27 10:45 | NUR ---
pt states he feels wet under his bottom. determined that the chux underneath is wet and needs to be changed. obtained supplies and discussed plan with pt. pt now refusing to let us change the chux and clean him up. educated pt on importance of keeping skin clean and dry. pt still refusing for any further care at this time. will continue to monitor.
[2023-07-27] MEDS: midodrine tablet 2.5 MG TABLET PO SCH ×2 (11:11→16:26)
[2023-07-27] MEDS: oxybutynin 5mg tablet PO PRN ×2 (13:30→23:02)
[2023-07-27 14:24] LABS: ALBUMIN 2.7 G/DL (3.4-5.0); ANION GAP 7 (8-16); BLOOD UREA NITROGEN 69 MG/DL (7-18); BUN/CREATININE RATIO 17.8 (10.0-20.0); CALCIUM 7.6 MG/DL (8.5-10.1); CHLORIDE 103 MMOL/L (99-107); CREATININE 3.88 MG/DL (0.60-1.10); GLUCOSE 159 MG/DL (70-104); POTASSIUM 5.6 MMOL/L (3.5-5.1); SODIUM 132 MMOL/L (135-145); TOTAL CARBON DIOXIDE 21.7 MMOL/L (24-32); eCRCL 20 ML/MIN; eGFR 16 ML/MIN
[2023-07-27] MEDS ORDERED: insulin regular, human 10 units/0.1 ml syringe IV ONE (14:30)
[2023-07-27] MEDS ORDERED: dextrose 50%-water 50ml dispensing syringe IV ONE (14:30)
[2023-07-27] MEDS ORDERED: calcium chloride 100 MG/1 ML inj IV ONE (14:30)
[2023-07-27] MEDS ORDERED: albuterol 2.5 MG/3 ML nebule CONTNEB SCH (14:30)
[2023-07-27] MEDS: ipratropium/albuterol 3ml nebule NEB SCH ×3 (15:00→23:24)
[2023-07-27] MEDS ORDERED: albuterol 2.5 MG/3 ML nebule CONTNEB ONE (16:00)
[2023-07-27] MEDS: oxyCODONE IR 5mg (immed. release) tablet PO PRN (16:26)
[2023-07-27] MEDS: DOBUTamine-DoBUTrex 500mg/D5W 250 ML IV SCH (16:49)
[2023-07-27] MEDS: budesonide 0.5mg/2ml UD nebule IH SCH (19:22)
[2023-07-27] MEDS ORDERED: furosemide 40mg/4ml inj IV ONE (20:20)
[2023-07-28] VITALS (25 sets, daily range): BP systolic 90–119; BP diastolic 40–62; PULSE 64–120; RESP 16–20; TEMP 97.5–98.8; O2SAT 93–98
[2023-07-28] MEDS: SODIUM ZIRCONIUM CYCLOSILICATE 10 GM POWD.PACK PO SCH ×2 (02:04→10:08)
[2023-07-28] MEDS: ipratropium/albuterol 3ml nebule NEB SCH ×6 (03:09→22:58)
[2023-07-28] MEDS: oxyCODONE IR 5mg (immed. release) tablet PO PRN ×2 (03:30→07:55)
[2023-07-28] MEDS: DOBUTamine-DoBUTrex 500mg/D5W 250 ML IV SCH ×2 (03:38→17:59)
[2023-07-28 06:22] LABS: BASOPHILS # (AUTO) 0.1 X10'3 (0-0.2); BASOPHILS % (AUTO) 1.1 % (0-1); EOSINOPHILS # (AUTO) 0.1 X10'3 (0-0.9); EOSINOPHILS % (AUTO) 1.5 % (0-6); LYMPHOCYTES # (AUTO) 0.9 X10'3 (1.1-4.8); MEAN PLATELET VOLUME 7.4 FL (7.4-10.4); MONOCYTES # (AUTO) 0.7 X10'3 (0-0.9); MONOCYTES % (AUTO) 7.6 % (2-12); NEUTROPHILS % (AUTO) 80.8 % (42-75)
--- NOTE | 2023-07-28 06:42 | NUR ---
Patient in room PCU 3021. I have received report from YESSY WARNER, and had the opportunity to ask questions and assume patient care.
[2023-07-28 07:04] LABS: ALANINE AMINOTRANSFERASE 15 U/L (12-78); ALBUMIN 2.7 G/DL (3.4-5.0); ALBUMIN/GLOBULIN RATIO 0.8 (1.1-1.5); ALKALINE PHOSPHATASE 74 IU/L (46-116); ANION GAP 9 (8-16); ASPARTATE AMINO TRANSFERASE 15 U/L (10-37); BILIRUBIN,TOTAL 0.4 MG/DL (0.1-1.0); BLOOD UREA NITROGEN 58 MG/DL (7-18); BUN/CREATININE RATIO 19.1 (10.0-20.0); CALCIUM 7.9 MG/DL (8.5-10.1); CHLORIDE 104 MMOL/L (99-107); CREATININE 3.04 MG/DL (0.60-1.10); GLUCOSE 140 MG/DL (70-104); SODIUM 135 MMOL/L (135-145); TOTAL CARBON DIOXIDE 21.8 MMOL/L (24-32); TOTAL PROTEIN 5.9 G/DL (6.4-8.2); eCRCL 26 ML/MIN; eGFR 21 ML/MIN
[2023-07-28 07:38] LABS: MEAN CORPUSCULAR HEMOGLOBIN 23.1 PG (27.0-31.0); MEAN CORPUSCULAR HGB CONC 30.3 g/dL (33.0-36.5); PLATELET COUNT 186 X10'3 (140-440); RED BLOOD COUNT 4.34 X10'6 (4.70-6.10); RED CELL DISTRIBUTION WIDTH 20.3 % (11.5-14.5); WHITE BLOOD COUNT 10.9 X10'3 (4.5-11.0)
[2023-07-28 07:42] LABS: ANISOCYTOSIS 3+; ELLIPTOCYTES FEW; MICROCYTOSIS 1+; PLATELET ESTIMATE NORMAL; TEAR DROP CELLS FEW
[2023-07-28] MEDS: pantoprazole 40MG/NS 100ML BAG 100 ML IV SCH (07:47)
[2023-07-28] MEDS: midodrine tablet 2.5 MG TABLET PO SCH ×3 (07:53→16:08)
[2023-07-28] MEDS: phenazopyridine 100mg tablet PO SCH ×3 (07:55→18:00)
[2023-07-28] MEDS: tamsulosin 0.4mg capsule PO SCH (07:55)
[2023-07-28] MEDS: docusate sod 100mg capsule PO SCH ×2 (07:56→20:00)
[2023-07-28] MEDS: amiodarone 200mg tablet PO SCH ×2 (07:56→20:19)
[2023-07-28] MEDS: finasteride 5mg tablet PO SCH (07:57)
[2023-07-28] MEDS: nystatin 15 GM powder TP SCH ×2 (07:58→20:21)
[2023-07-28] MEDS: furosemide 40mg/4ml inj IV SCH ×2 (08:00→20:19)
[2023-07-28] MEDS: budesonide 0.5mg/2ml UD nebule IH SCH ×2 (08:14→19:34)
[2023-07-28] MEDS: ciprofloxacin/D5W 200mg/100mL 100 ML IV SCH (08:54)
[2023-07-28] MEDS: apixaban 5mg tablet PO SCH ×2 (12:34→20:19)
--- NOTE | 2023-07-28 14:50 | NUR ---
F/u 07/28: Pt PO regressing ~48% avg Na-restricted meals not meeting needs. Pt seen by RD at bedside; pt reports unsure if foods receiving okay to have given renal function s/p TDC though has avoided HD yet per EMR. RD educated pt diet order is per physician and food sent okay to consume especially given wound healing needs. Per WOC note 07/25, chronic full thickness ulcer to L lateral LE. Pt declines any ONS; reports disliking low fat milk, cream of wheat, oatmeal, cauliflower, britt sauce. Pt is agreeable to whole milk/cereal WB, juice WL, and diet lemon-[place] soda WS-dietary notified. RD encouraged pt meals intake and to make food preferences known. Colostomy -790ml past 24 hours though has been at or over 1L multiple times this admit receiving routine colace. JOSELO d/w RN regarding cancelling colace if MD agreeable given colostomy status. Will monitor for further nutrition intervention needs. Recommendations: 1) Consider liberalizing to regular diet if poor intake persist. Lipid panel WNL with the exception of low HDL and BG well controlled throughout LOS A1c 7.1% 2) Encourage intake of meals; honor food preferences as able 3) Consider holding bowel regimen given colostomy status 790-1100ml LOS 4) Consider Phos binder per physician discretion; last Phos 6.4mg/dl 07/24 5) Weekly scaled weights Addendum: 07/28/23 at [address] Amended: Links added.
[2023-07-28] MEDS: metroNIDAZOLE-Flagyl 500mg/NS 100 ML IV SCH (16:08)
--- NOTE | 2023-07-28 19:40 | NUR ---
Problems reprioritized. Patient report given, questions answered & plan of care reviewed with YESSY MILLS.
[2023-07-28] MEDS: ciprofloxacin 250mg tablet PO SCH (20:19)
[2023-07-29] VITALS (29 sets, daily range): BP systolic 66–119; BP diastolic 38–65; PULSE 79–102; RESP 14–20; TEMP 97.6–98.7; O2SAT 87–99
[2023-07-29] MEDS: metroNIDAZOLE-Flagyl 500mg/NS 100 ML IV SCH ×3 (00:33→17:23)
[2023-07-29] MEDS: oxyCODONE IR 5mg (immed. release) tablet PO PRN (02:17)
[2023-07-29] MEDS: phenazopyridine 100mg tablet PO PRN (02:17)
[2023-07-29] MEDS: oxybutynin 5mg tablet PO PRN ×2 (02:38→14:11)
[2023-07-29] MEDS: ipratropium/albuterol 3ml nebule NEB SCH ×6 (03:12→23:29)
--- NOTE | 2023-07-29 05:00 | NUR ---
MD called for pt uncontrolled pain. MD gave order for Morphine IV 2mg Q4H PRN. Order placed per MD. Addendum: 07/29/23 at 0502 by Heydi James RN Order readback and placed
--- NOTE | 2023-07-29 05:21 | NUR ---
Pt expressed anxiety about codeine allergy and taking morphine. Spoke with MD and pharmacy, morphine should not cause a reaction for him. I spoke with the pt and reassured him that he is on continuous monitoring so in a worse case scenario if something did happen we are right there to help. Pt expressed relief and is willing to take meds.
[2023-07-29] MEDS: morphine 2 MG/ML inj. syringe IV PRN ×3 (05:31→16:45)
--- NOTE | 2023-07-29 06:42 | NUR ---
Patient in room PCU 3021. I have received report from YESSY MILLS, and had the opportunity to ask questions and assume patient care.
--- NOTE | 2023-07-29 06:49 | NUR ---
Problems reprioritized. Patient report given, questions answered & plan of care reviewed with Leelee KRISHNAMURTHY.
[2023-07-29 07:14] LABS: ALANINE AMINOTRANSFERASE 10 U/L (12-78); ALBUMIN 2.8 G/DL (3.4-5.0); ALBUMIN/GLOBULIN RATIO 0.9 (1.1-1.5); ALKALINE PHOSPHATASE 76 IU/L (46-116); ANION GAP 6 (8-16); ASPARTATE AMINO TRANSFERASE 11 U/L (10-37); BILIRUBIN,TOTAL 0.6 MG/DL (0.1-1.0); BLOOD UREA NITROGEN 50 MG/DL (7-18); CHLORIDE 105 MMOL/L (99-107); GLUCOSE 99 MG/DL (70-104); POTASSIUM 4.6 MMOL/L (3.5-5.1); SODIUM 136 MMOL/L (135-145); TOTAL CARBON DIOXIDE 25.1 MMOL/L (24-32); eCRCL 31 ML/MIN; eGFR 26 ML/MIN
[2023-07-29 07:23] LABS: BASOPHILS # (AUTO) 0.1 X10'3 (0-0.2); BASOPHILS % (AUTO) 1.1 % (0-1); EOSINOPHILS # (AUTO) 0.2 X10'3 (0-0.9); EOSINOPHILS % (AUTO) 1.9 % (0-6); LYMPHOCYTES # (AUTO) 0.9 X10'3 (1.1-4.8); LYMPHOCYTES % (AUTO) 7.1 % (21-51); MEAN PLATELET VOLUME 7.6 FL (7.4-10.4); MONOCYTES # (AUTO) 0.7 X10'3 (0-0.9); MONOCYTES % (AUTO) 5.9 % (2-12); NEUTROPHILS # (AUTO) 10.7 X10'3 (1.8-7.7); PLATELET COUNT 185 X10'3 (140-440); WHITE BLOOD COUNT 12.7 X10'3 (4.5-11.0)
[2023-07-29] MEDS: budesonide 0.5mg/2ml UD nebule IH SCH ×2 (07:37→19:41)
[2023-07-29] MEDS: pantoprazole 40MG/NS 100ML BAG 100 ML IV SCH (09:00)
[2023-07-29] MEDS: ciprofloxacin 250mg tablet PO SCH ×2 (09:01→20:52)
[2023-07-29] MEDS: phenazopyridine 100mg tablet PO SCH ×3 (09:01→17:22)
[2023-07-29 09:07] LABS: HEMATOCRIT 29.7 % (42.0-52.0); HEMOGLOBIN 9.2 g/dl (14.0-17.9); MEAN CORPUSCULAR HEMOGLOBIN 22.7 PG (27.0-31.0); MEAN CORPUSCULAR HGB CONC 30.9 g/dL (33.0-36.5); MEAN CORPUSCULAR VOLUME 73.4 FL (78-98); RED BLOOD COUNT 4.04 X10'6 (4.70-6.10); RED CELL DISTRIBUTION WIDTH 20.7 % (11.5-14.5)
[2023-07-29] MEDS: docusate sod 100mg capsule PO SCH (10:04)
[2023-07-29] MEDS: midodrine tablet 2.5 MG TABLET PO SCH ×3 (10:04→16:37)
[2023-07-29] MEDS: amiodarone 200mg tablet PO SCH ×2 (10:04→22:02)
[2023-07-29] MEDS: finasteride 5mg tablet PO SCH (10:05)
[2023-07-29] MEDS: SODIUM ZIRCONIUM CYCLOSILICATE 10 GM POWD.PACK PO SCH (10:05)
[2023-07-29] MEDS: nystatin 15 GM powder TP SCH ×2 (10:05→20:51)
[2023-07-29] MEDS: tamsulosin 0.4mg capsule PO SCH (10:45)
[2023-07-29] MEDS: furosemide 40mg/4ml inj IV SCH ×2 (10:49→20:00)
[2023-07-29 12:50] LABS: ANISOCYTOSIS 3+; MICROCYTOSIS 1+; PLATELET ESTIMATE NORMAL; TOTAL CELLS COUNTED 100
[2023-07-29 12:51] LABS: HYPOCHROMASIA 1+; TEAR DROP CELLS FEW
[2023-07-29 12:52] LABS: ELLIPTOCYTES FEW
--- NOTE | 2023-07-29 19:06 | NUR ---
Problems reprioritized. Patient report given, questions answered & plan of care reviewed with YESSY URBANO.
[2023-07-29] MEDS: DOBUTamine-DoBUTrex 500mg/D5W 250 ML IV SCH (20:51)
--- NOTE | 2023-07-29 22:08 | NUR ---
Nurse help shar d/t Pt BP being in the 70-90/50-60s map of 49-60.
[2023-07-30] VITALS (35 sets, daily range): BP systolic 73–108; BP diastolic 36–59; PULSE 69–98; RESP 14–18; TEMP 97.4–98.4; O2SAT 87–98
[2023-07-30] MEDS: metroNIDAZOLE-Flagyl 500mg/NS 100 ML IV SCH ×2 (00:11→08:40)
--- NOTE | 2023-07-30 03:19 | NUR ---
Nurse has checked Pt's BP manually throughout the night with each SBP being within the 90s.
[2023-07-30] MEDS: ipratropium/albuterol 3ml nebule NEB SCH ×6 (03:23→23:02)
--- NOTE | 2023-07-30 06:39 | NUR ---
Problems reprioritized. Patient report given, questions answered & plan of care reviewed with Savannah KRISHNAMURTHY and Concetta KRISHNAMURTHY. Pt stable at this time.
[2023-07-30 07:35] LABS: BASOPHILS # (AUTO) 0.1 X10'3 (0-0.2); BASOPHILS % (AUTO) 1.1 % (0-1); EOSINOPHILS # (AUTO) 0.2 X10'3 (0-0.9); EOSINOPHILS % (AUTO) 1.5 % (0-6); HEMATOCRIT 25.3 % (42.0-52.0); HEMOGLOBIN 7.5 g/dl (14.0-17.9); LYMPHOCYTES # (AUTO) 0.7 X10'3 (1.1-4.8); LYMPHOCYTES % (AUTO) 6.7 % (21-51); MEAN CORPUSCULAR HEMOGLOBIN 22.4 PG (27.0-31.0); MEAN CORPUSCULAR HGB CONC 29.5 g/dL (33.0-36.5); MEAN CORPUSCULAR VOLUME 75.7 FL (78-98); MEAN PLATELET VOLUME 7.4 FL (7.4-10.4); MONOCYTES # (AUTO) 0.6 X10'3 (0-0.9); MONOCYTES % (AUTO) 5.8 % (2-12); NEUTROPHILS # (AUTO) 8.9 X10'3 (1.8-7.7); NEUTROPHILS % (AUTO) 84.9 % (42-75); PLATELET COUNT 178 X10'3 (140-440); RED BLOOD COUNT 3.34 X10'6 (4.70-6.10); RED CELL DISTRIBUTION WIDTH 21.1 % (11.5-14.5); WHITE BLOOD COUNT 10.5 X10'3 (4.5-11.0)
[2023-07-30] MEDS: SODIUM ZIRCONIUM CYCLOSILICATE 10 GM POWD.PACK PO SCH (08:00)
[2023-07-30] MEDS: furosemide 40mg/4ml inj IV SCH ×2 (08:00→20:40)
[2023-07-30 08:13] LABS: % IRON SATURATION 15 % (11-46); IRON 43 UG/DL (53-167); TOTAL IRON BINDING CAPACITY 285 UG/DL (259-388)
[2023-07-30] MEDS: budesonide 0.5mg/2ml UD nebule IH SCH ×2 (08:13→19:26)
[2023-07-30 08:33] LABS: ALANINE AMINOTRANSFERASE 11 U/L (12-78); ALBUMIN 2.4 G/DL (3.4-5.0); ALBUMIN/GLOBULIN RATIO 0.8 (1.1-1.5); ALKALINE PHOSPHATASE 66 IU/L (46-116); ASPARTATE AMINO TRANSFERASE 14 U/L (10-37); BILIRUBIN,TOTAL 0.3 MG/DL (0.1-1.0); BLOOD UREA NITROGEN 48 MG/DL (7-18); BUN/CREATININE RATIO 19.7 (10.0-20.0); CALCIUM 7.9 MG/DL (8.5-10.1); CREATININE 2.44 MG/DL (0.60-1.10); GLUCOSE 91 MG/DL (70-104); MAGNESIUM 1.6 MG/DL (1.5-2.4); PHOSPHORUS 4.7 MG/DL (2.3-4.5); TOTAL CARBON DIOXIDE 24.5 MMOL/L (24-32); TOTAL PROTEIN 5.3 G/DL (6.4-8.2); eCRCL 32 ML/MIN; eGFR 27 ML/MIN
[2023-07-30] MEDS: amiodarone 200mg tablet PO SCH ×2 (08:37→20:35)
[2023-07-30] MEDS: midodrine tablet 2.5 MG TABLET PO SCH (08:38)
[2023-07-30] MEDS: tamsulosin 0.4mg capsule PO SCH (08:38)
[2023-07-30] MEDS: docusate sod 100mg capsule PO SCH (08:38)
[2023-07-30] MEDS: phenazopyridine 100mg tablet PO SCH ×3 (08:39→18:20)
[2023-07-30] MEDS: ciprofloxacin 250mg tablet PO SCH ×2 (08:39→20:35)
[2023-07-30] MEDS: pantoprazole 40MG/NS 100ML BAG 100 ML IV SCH (08:41)
[2023-07-30 08:44] LABS: ANION GAP 7 (8-16); CHLORIDE 106 MMOL/L (99-107); POTASSIUM 4.3 MMOL/L (3.5-5.1); SODIUM 137 MMOL/L (135-145)
[2023-07-30 08:51] LABS: FERRITIN 89 NG/ML (26-388)
[2023-07-30] MEDS: finasteride 5mg tablet PO SCH (12:54)
--- NOTE | 2023-07-30 14:47 | NUR ---
PRESSURE ULCER EDUCATION: DEFINITION: A pressure ulcer is an area of skin that breaks down when you stay in one position too long. The constant pressure against the skin reduces the blood flow to that area and the affected tissue dies. CAUSES: "Being bedridden or in a wheelchair "Fragile skin "Having a chronic condition, such as diabetes or vascular disease "Inability to move certain parts of your body without assistance "Older age "Incontinence of urine or stool SYMPTOMS: "A reddened area that DOES NOT turn white when pressed on - this can be the beginning of a pressure ulcer "A blister, deep sore or a crater - these can be advanced pressure ulcers FIRST AID: "Relieve the pressure on this area "Keep the area clean and dry "Call your primary doctor if you see any of the above symptoms "DO NOT massage the area "DO NOT use a donut shaped or ring shaped pillow- these actually interfere with the blood flow and cause complications PREVENTION: "Check for pressure ulcers everyday "Change position at least every two hours to relieve pressure "Use items that help relieve pressure- pillows, sheepskin, foam padding, and powders. "Keep skin clean and dry "Eat healthy well balanced meals "Exercise daily IF YOU SEE ANY OF THESE SYMPTOMS WHILE IN THE HOSPITAL - TELL YOUR NURSE IMMEDIATELY. IF YOU SEE ANY OF THESE SYMPTOMS WHILE AT HOME OR HAVE ANY QUESTIONS OR CONCERNS ABOUT PRESSURE ULCERS - CALL YOUR PRIMARY DOCTOR IMMEDIATELY. Addendum: 07/30/23 at 1448 by Darleen Manuel LVN Amended: Links added.
[2023-07-30] MEDS: midodrine 5mg tablet PO SCH (18:20)
--- NOTE | 2023-07-30 18:51 | NUR ---
Problems reprioritized. Patient report given, questions answered & plan of care reviewed with Marisol KRISHNAMURTHY, patient stable at transfer of care.
[2023-07-30] MEDS: vitamin A & D ointment-NF 1 APPLIC TUBE TP SCH (20:00)
[2023-07-30] MEDS: phenazopyridine 100mg tablet PO PRN (20:35)
[2023-07-30] MEDS: oxyCODONE IR 5mg (immed. release) tablet PO PRN (20:36)
[2023-07-30] MEDS: sodium ferric gluc complex inj 125 MG in normal saline 100ml IV soln 100 ML IV SCH (20:53)
[2023-07-30] MEDS: DOBUTamine-DoBUTrex 500mg/D5W 250 ML IV SCH (22:43)
--- NOTE | 2023-07-30 23:47 | NUR ---
Student documentation: I have reviewed and agree with all interventions, assessments performed and documented by Hernandez GONZALES [facility].
[2023-07-31] VITALS (26 sets, daily range): BP systolic 90–115; BP diastolic 42–63; PULSE 82–104; RESP 14–24; TEMP 98.3–98.5; O2SAT 90–96
[2023-07-31] MEDS: metroNIDAZOLE 500mg tablet PO SCH ×4 (00:52→16:42)
[2023-07-31] MEDS: nystatin 15 GM powder TP SCH ×4 (00:52→20:00)
[2023-07-31] MEDS: ipratropium/albuterol 3ml nebule NEB SCH ×6 (03:03→23:16)
[2023-07-31 06:19] LABS: HBSAG SCREEN Negative (Negative)
--- NOTE | 2023-07-31 06:50 | NUR ---
Problems reprioritized. Patient report given, questions answered & plan of care reviewed with Josselyn KRISHNAMURTHY. Pt stable at shift change.
[2023-07-31] MEDS: budesonide 0.5mg/2ml UD nebule IH SCH ×2 (07:48→19:25)
[2023-07-31 07:54] LABS: BASOPHILS # (AUTO) 0.1 X10'3 (0-0.2); BASOPHILS % (AUTO) 0.8 % (0-1); EOSINOPHILS # (AUTO) 0.1 X10'3 (0-0.9); EOSINOPHILS % (AUTO) 0.9 % (0-6); LYMPHOCYTES # (AUTO) 0.5 X10'3 (1.1-4.8); LYMPHOCYTES % (AUTO) 3.1 % (21-51); MEAN PLATELET VOLUME 7.5 FL (7.4-10.4); MONOCYTES # (AUTO) 0.9 X10'3 (0-0.9); MONOCYTES % (AUTO) 5.5 % (2-12); NEUTROPHILS # (AUTO) 13.9 X10'3 (1.8-7.7); NEUTROPHILS % (AUTO) 89.7 % (42-75); PLATELET COUNT 191 X10'3 (140-440); WHITE BLOOD COUNT 15.5 X10'3 (4.5-11.0)
[2023-07-31 07:55] LABS: ALANINE AMINOTRANSFERASE 10 U/L (12-78); ALBUMIN 2.5 G/DL (3.4-5.0); ALBUMIN/GLOBULIN RATIO 0.8 (1.1-1.5); ALKALINE PHOSPHATASE 67 IU/L (46-116); ANION GAP 3 (8-16); ASPARTATE AMINO TRANSFERASE 12 U/L (10-37); BILIRUBIN,TOTAL 0.4 MG/DL (0.1-1.0); BLOOD UREA NITROGEN 37 MG/DL (7-18); BUN/CREATININE RATIO 18.5 (10.0-20.0); CHLORIDE 107 MMOL/L (99-107); GLUCOSE 101 MG/DL (70-104); MAGNESIUM 1.6 MG/DL (1.5-2.4); PHOSPHORUS 3.4 MG/DL (2.3-4.5); POTASSIUM 3.9 MMOL/L (3.5-5.1); SODIUM 139 MMOL/L (135-145); TOTAL CARBON DIOXIDE 28.6 MMOL/L (24-32); TOTAL PROTEIN 5.5 G/DL (6.4-8.2); eCRCL 39 ML/MIN; eGFR 34 ML/MIN
[2023-07-31] MEDS: furosemide 40mg/4ml inj IV SCH ×2 (08:00→19:43)
[2023-07-31] MEDS: tamsulosin 0.4mg capsule PO SCH (08:00)
--- NOTE | 2023-07-31 08:33 | NUR ---
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
[2023-07-31] MEDS: docusate sod 100mg capsule PO SCH (08:38)
[2023-07-31] MEDS: pantoprazole 40MG/NS 100ML BAG 100 ML IV SCH (08:38)
[2023-07-31] MEDS: amiodarone 200mg tablet PO SCH (08:38)
[2023-07-31] MEDS: ciprofloxacin 250mg tablet PO SCH ×2 (08:38→19:43)
[2023-07-31] MEDS: midodrine 5mg tablet PO SCH ×3 (08:39→16:41)
[2023-07-31] MEDS: vitamin A & D ointment-NF 1 APPLIC TUBE TP SCH ×2 (08:39→20:00)
[2023-07-31] MEDS: finasteride 5mg tablet PO SCH (08:39)
[2023-07-31] MEDS: phenazopyridine 100mg tablet PO SCH ×3 (08:39→16:42)
[2023-07-31] MEDS: SODIUM ZIRCONIUM CYCLOSILICATE 10 GM POWD.PACK PO SCH (08:39)
[2023-07-31 08:53] LABS: HEMATOCRIT 24.8 % (42.0-52.0); HEMOGLOBIN 7.6 g/dl (14.0-17.9); MEAN CORPUSCULAR HEMOGLOBIN 22.8 PG (27.0-31.0); MEAN CORPUSCULAR HGB CONC 30.8 g/dL (33.0-36.5); MEAN CORPUSCULAR VOLUME 74.1 FL (78-98); RED BLOOD COUNT 3.34 X10'6 (4.70-6.10); RED CELL DISTRIBUTION WIDTH 20.6 % (11.5-14.5)
[2023-07-31 09:54] LABS: TOTAL CELLS COUNTED 100
[2023-07-31] MEDS: sodium ferric gluc complex inj 125 MG in normal saline 100ml IV soln 100 ML IV SCH (09:56)
[2023-07-31 09:59] LABS: PLATELET ESTIMATE NORMAL
[2023-07-31 10:00] LABS: ANISOCYTOSIS 3+; ELLIPTOCYTES 1+; HYPOCHROMASIA 1+; TEAR DROP CELLS 1+
[2023-07-31 10:01] LABS: MICROCYTOSIS 1+
--- NOTE | 2023-07-31 13:11 | NUR ---
Hospitalist aware of WBC level and lasix hold. does not want pt. on anticoag. at this time. plans to go to [facility]
--- NOTE | 2023-07-31 14:18 | NUR ---
F/u 07/31: Pt continues on Na-restricted diet with average PO intake of 68% x 7 meals this follow up including 100% for his last meal and overall slightly improving this follow up. PO intake met 73% of estimated kcal needs and 85% of estimated protein needs. RD to continue encouraging PO intake due to not agreeable to nutrition supplement. 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 LBM via colostomy on 07/30 of 725ml output today though still receiving colace. Recommendations: 1) Consider liberalizing to regular diet if poor intake persist. Lipid panel WNL with the exception of low HDL and BG well controlled throughout LOS A1c 7.1% 2) Encourage intake of meals; honor food preferences as able 3) Consider holding bowel regimen given colostomy status 625-1100ml LOS 4) Consider Phos binder per physician discretion; last Phos 6.4mg/dl 07/24 5) Weekly scaled weights Addendum: 07/31/23 at [address] Amended: Links added.
--- NOTE | 2023-07-31 17:57 | NUR ---
PAGER ID: [phone] MESSAGE: Johnnie Herrera [phone] Streeter's note. Do you want me to DC dobutamine? start lasix bid? midodrine q8 hours? laura [phone]
--- NOTE | 2023-07-31 19:05 | NUR ---
Gave report to Maricruz KRISHNAMURTHY
[2023-07-31] MEDS: morphine 2 MG/ML inj. syringe IV PRN (19:44)
--- NOTE | 2023-07-31 22:00 | NUR ---
Dr. Ortega in to consult, per MD he will put his consult in for surgery clearance. We tried to call Dr. Alatorre but he did not answer
[2023-08-01] VITALS (29 sets, daily range): BP systolic 87–106; BP diastolic 47–82; PULSE 87–126; RESP 16–27; TEMP 97.6–99.1; O2SAT 92–97
[2023-08-01] MEDS: metroNIDAZOLE 500mg tablet PO SCH ×4 (00:03→23:49)
[2023-08-01] MEDS: morphine 2 MG/ML inj. syringe IV PRN ×2 (00:04→19:42)
[2023-08-01] MEDS: oxyCODONE IR 5mg (immed. release) tablet PO PRN ×2 (02:51→08:40)
[2023-08-01] MEDS: ipratropium/albuterol 3ml nebule NEB SCH ×6 (02:56→23:00)
[2023-08-01] MEDS: DOBUTamine-DoBUTrex 500mg/D5W 250 ML IV SCH (03:25)
[2023-08-01] MEDS ORDERED: amiodarone 200mg tablet PO ONE (04:20)
--- NOTE | 2023-08-01 04:33 | NUR ---
Patient heart rate trending up from 80-90 today, 90-100 tonight. Currently HR 109. Dr. Deras notified, advised to give the AM dose of amiodarone 200 now.
--- NOTE | 2023-08-01 06:24 | NUR ---
Patient report given, questions answered & plan of care reviewed with YESSY Arcos
[2023-08-01 06:41] LABS: BASOPHILS # (AUTO) 0.1 X10'3 (0-0.2); BASOPHILS % (AUTO) 0.5 % (0-1); EOSINOPHILS # (AUTO) 0.1 X10'3 (0-0.9); EOSINOPHILS % (AUTO) 0.9 % (0-6); LYMPHOCYTES # (AUTO) 0.5 X10'3 (1.1-4.8); LYMPHOCYTES % (AUTO) 2.7 % (21-51); MEAN PLATELET VOLUME 7.7 FL (7.4-10.4); MONOCYTES # (AUTO) 1.1 X10'3 (0-0.9); MONOCYTES % (AUTO) 6.6 % (2-12); NEUTROPHILS # (AUTO) 15.4 X10'3 (1.8-7.7); NEUTROPHILS % (AUTO) 89.3 % (42-75); PLATELET COUNT 202 X10'3 (140-440); WHITE BLOOD COUNT 17.2 X10'3 (4.5-11.0)
[2023-08-01 06:50] LABS: ALANINE AMINOTRANSFERASE 9 U/L (12-78); ALBUMIN 2.4 G/DL (3.4-5.0); ALBUMIN/GLOBULIN RATIO 0.7 (1.1-1.5); ALKALINE PHOSPHATASE 68 IU/L (46-116); ANION GAP 5 (8-16); ASPARTATE AMINO TRANSFERASE 14 U/L (10-37); BILIRUBIN,TOTAL 0.5 MG/DL (0.1-1.0); BLOOD UREA NITROGEN 28 MG/DL (7-18); BUN/CREATININE RATIO 15.8 (10.0-20.0); CALCIUM 8.2 MG/DL (8.5-10.1); CHLORIDE 104 MMOL/L (99-107); CREATININE 1.77 MG/DL (0.60-1.10); GLUCOSE 127 MG/DL (70-104); MAGNESIUM 1.5 MG/DL (1.5-2.4); PHOSPHORUS 2.8 MG/DL (2.3-4.5); POTASSIUM 3.8 MMOL/L (3.5-5.1); SODIUM 139 MMOL/L (135-145); TOTAL CARBON DIOXIDE 29.6 MMOL/L (24-32); TOTAL PROTEIN 5.7 G/DL (6.4-8.2); eCRCL 44 ML/MIN; eGFR 39 ML/MIN
[2023-08-01 07:16] LABS: HEMATOCRIT 25.4 % (42.0-52.0); HEMOGLOBIN 7.7 g/dl (14.0-17.9); MEAN CORPUSCULAR HEMOGLOBIN 22.7 PG (27.0-31.0); MEAN CORPUSCULAR HGB CONC 30.5 g/dL (33.0-36.5); MEAN CORPUSCULAR VOLUME 74.2 FL (78-98); RED BLOOD COUNT 3.42 X10'6 (4.70-6.10)
[2023-08-01 07:17] LABS: RED CELL DISTRIBUTION WIDTH 21.2 % (11.5-14.5)
[2023-08-01] MEDS ORDERED: amiodarone 200mg tablet PO SCH (08:00)
[2023-08-01] MEDS: vitamin A & D ointment-NF 1 APPLIC TUBE TP SCH ×2 (08:00→20:00)
[2023-08-01] MEDS: budesonide 0.5mg/2ml UD nebule IH SCH ×2 (08:05→19:15)
[2023-08-01] MEDS: phenazopyridine 100mg tablet PO SCH ×3 (08:39→17:47)
[2023-08-01] MEDS: tamsulosin 0.4mg capsule PO SCH (08:39)
[2023-08-01] MEDS: finasteride 5mg tablet PO SCH (08:39)
[2023-08-01] MEDS: midodrine 5mg tablet PO SCH ×3 (08:40→16:46)
[2023-08-01] MEDS: ciprofloxacin 250mg tablet PO SCH ×2 (08:40→19:42)
[2023-08-01] MEDS: docusate sod 100mg capsule PO SCH (08:40)
[2023-08-01] MEDS: oxybutynin 5mg tablet PO PRN (08:40)
[2023-08-01] MEDS: SODIUM ZIRCONIUM CYCLOSILICATE 10 GM POWD.PACK PO SCH (08:40)
[2023-08-01] MEDS: pantoprazole 40MG/NS 100ML BAG 100 ML IV SCH (08:41)
[2023-08-01] MEDS: nystatin 15 GM powder TP SCH ×2 (08:43→20:00)
[2023-08-01] MEDS: furosemide 40mg/4ml inj IV SCH ×2 (08:43→19:44)
[2023-08-01] MEDS: amiodarone 200mg tablet PO SCH ×2 (08:44→19:42)
[2023-08-01 09:49] LABS: ANISOCYTOSIS 3+; PLATELET ESTIMATE NORMAL
[2023-08-01 09:50] LABS: ELLIPTOCYTES 1+; HYPOCHROMASIA 2+; MICROCYTOSIS 1+; TEAR DROP CELLS 1+
[2023-08-01 09:51] LABS: SPHEROCYTES FEW
[2023-08-01] MEDS: sodium ferric gluc complex inj 125 MG in normal saline 100ml IV soln 100 ML IV SCH (09:54)
--- NOTE | 2023-08-01 13:42 | NUR ---
Dr Baez removed patient's TDC without complication. Sterile dressing applied.
--- NOTE | 2023-08-01 14:05 | NUR ---
Pt. has been in chair since 1229 when PT put him there. Requested to help pt back into bed and he refused.
--- NOTE | 2023-08-01 15:58 | NUR ---
Made p's bed. Requested him 2 x to go to bed and pt. refused stating "I'm finally comfortable here and I'm not getting up."
--- NOTE | 2023-08-01 16:49 | NUR ---
Pt. still refusing to return to bed. Educated on ways to preserve skin integrity, wound care, and pressure consequences.
[2023-08-01] MEDS ORDERED: digoxin 250mcg/ml 2ml ampule IV ONE (20:15)
[2023-08-02] VITALS (24 sets, daily range): BP systolic 102–125; BP diastolic 49–92; PULSE 80–104; RESP 14–22; TEMP 97.8–99.1; O2SAT 91–99
[2023-08-02] MEDS ORDERED: digoxin 250mcg/ml 2ml ampule IV ONE (02:15)
[2023-08-02] MEDS: ipratropium/albuterol 3ml nebule NEB SCH ×6 (03:11→23:48)
[2023-08-02] MEDS: morphine 2 MG/ML inj. syringe IV PRN (03:28)
--- NOTE | 2023-08-02 06:30 | NUR ---
Patient in room PCU 3021. I have received report from YESSY Alcantara and had the opportunity to ask questions and assume patient care.
--- NOTE | 2023-08-02 06:47 | NUR ---
Patient report given, questions answered & plan of care reviewed with YESSY Torres
[2023-08-02] MEDS: budesonide 0.5mg/2ml UD nebule IH SCH ×2 (07:14→19:06)
[2023-08-02 07:30] LABS: BASOPHILS # (AUTO) 0.1 X10'3 (0-0.2); BASOPHILS % (AUTO) 0.3 % (0-1); EOSINOPHILS # (AUTO) 0.1 X10'3 (0-0.9); EOSINOPHILS % (AUTO) 0.5 % (0-6); HEMATOCRIT 25.5 % (42.0-52.0); LYMPHOCYTES # (AUTO) 0.5 X10'3 (1.1-4.8); LYMPHOCYTES % (AUTO) 2.7 % (21-51); MEAN PLATELET VOLUME 7.3 FL (7.4-10.4); MONOCYTES # (AUTO) 1.3 X10'3 (0-0.9); NEUTROPHILS # (AUTO) 16.3 X10'3 (1.8-7.7); NEUTROPHILS % (AUTO) 89.5 % (42-75); PLATELET COUNT 230 X10'3 (140-440); WHITE BLOOD COUNT 18.2 X10'3 (4.5-11.0)
[2023-08-02] MEDS ORDERED: dextrose 50%-water 50ml dispensing syringe IV PRN ×2 (07:45)
[2023-08-02] MEDS ORDERED: insulin Lispro (HumaLOG) vial - multi-dose SQ SCH (07:45)
[2023-08-02] MEDS ORDERED: DEXTROSE 15 GM of carb/4 tabs (each vial/BOTTLE has 4 tablets) PO PRN ×2 (07:45)
[2023-08-02] MEDS ORDERED: glucagon, human recombinant 1mg kit SUBCUT PRN (07:45)
[2023-08-02 08:00] LABS: HEMOGLOBIN 7.6 g/dl (14.0-17.9); MEAN CORPUSCULAR HEMOGLOBIN 23.1 PG (27.0-31.0); MEAN CORPUSCULAR HGB CONC 29.7 g/dL (33.0-36.5); MEAN CORPUSCULAR VOLUME 77.9 FL (78-98); RED BLOOD COUNT 3.28 X10'6 (4.70-6.10); RED CELL DISTRIBUTION WIDTH 21.2 % (11.5-14.5)
[2023-08-02 08:22] LABS: ALANINE AMINOTRANSFERASE 8 U/L (12-78); ALBUMIN 2.4 G/DL (3.4-5.0); ALBUMIN/GLOBULIN RATIO 0.7 (1.1-1.5); ALKALINE PHOSPHATASE 76 IU/L (46-116); ANION GAP 5 (8-16); ASPARTATE AMINO TRANSFERASE 13 U/L (10-37); BILIRUBIN,TOTAL 0.4 MG/DL (0.1-1.0); BLOOD UREA NITROGEN 26 MG/DL (7-18); BUN/CREATININE RATIO 14.8 (10.0-20.0); CALCIUM 8.2 MG/DL (8.5-10.1); CHLORIDE 103 MMOL/L (99-107); CREATININE 1.76 MG/DL (0.60-1.10); GLUCOSE 107 MG/DL (70-104); MAGNESIUM 1.4 MG/DL (1.5-2.4); SODIUM 137 MMOL/L (135-145); TOTAL PROTEIN 5.9 G/DL (6.4-8.2); eCRCL 44 ML/MIN; eGFR 40 ML/MIN
[2023-08-02] MEDS ORDERED: potassium Cl 20 mEq SR tablet PO PRN (08:30)
[2023-08-02] MEDS ORDERED: magnesium 2GM in 50ml NS 50 ML IV PRN (08:30)
[2023-08-02] MEDS ORDERED: magnesium 4gm in 100ml NS 100 ML IV PRN (08:30)
[2023-08-02] MEDS ORDERED: potassium Cl 40MEQ/1/2NS 520ml 520 ML IV PRN (08:30)
[2023-08-02] MEDS: pantoprazole 40MG/NS 100ML BAG 100 ML IV SCH (08:57)
[2023-08-02] MEDS: SODIUM ZIRCONIUM CYCLOSILICATE 10 GM POWD.PACK PO SCH (09:03)
[2023-08-02] MEDS: ciprofloxacin 250mg tablet PO SCH ×2 (09:04→19:57)
[2023-08-02] MEDS: metroNIDAZOLE 500mg tablet PO SCH ×2 (09:05→16:11)
[2023-08-02] MEDS: digoxin 125mcg (0.125mg) tablet PO SCH (09:05)
[2023-08-02] MEDS: tamsulosin 0.4mg capsule PO SCH (09:06)
[2023-08-02] MEDS: midodrine 5mg tablet PO SCH ×3 (09:06→16:11)
[2023-08-02] MEDS: phenazopyridine 100mg tablet PO SCH ×3 (09:06→17:42)
[2023-08-02] MEDS: furosemide 40mg/4ml inj IV SCH ×2 (09:06→19:58)
[2023-08-02] MEDS: amiodarone 200mg tablet PO SCH (09:06)
[2023-08-02] MEDS: vitamin A & D ointment-NF 1 APPLIC TUBE TP SCH ×2 (09:08→20:00)
[2023-08-02] MEDS: nystatin 15 GM powder TP SCH ×2 (09:08→20:00)
[2023-08-02] MEDS: finasteride 5mg tablet PO SCH (09:08)
[2023-08-02] MEDS ORDERED: docusate sod 100mg capsule PO PRN (09:10)
[2023-08-02] MEDS: sodium ferric gluc complex inj 125 MG in normal saline 100ml IV soln 100 ML IV SCH (09:23)
[2023-08-02] MEDS: magnesium Cl slow-release 64mg tablet PO PRN ×2 (09:30→17:41)
[2023-08-02 11:54] LABS: BILIRUBIN,URINE NEGATIVE (Neg); CLARITY,URINE CLOUDY (Clear); GLUCOSE, URINE 100 mg/dl (Neg); KETONES,URINE NEGATIVE (Neg); LEUKOCYTE ESTERASE ,URINE LARGE (Neg); OCCULT BLOOD,URINE LARGE (Neg); PH,URINE 5.5 (4.8-8.0); PROTEIN,URINE 100 mg/dl (Neg)
[2023-08-02 12:00] LABS: UA COLLECTION TYPE NON-SPECIFIED
[2023-08-02 12:01] LABS: COLOR,URINE DARK YELLOW (Yellow); NITRITES, URINE NEGATIVE (Neg)
[2023-08-02 12:02] LABS: BACTERIA,URINE 1+ /HPF (Neg); COARSE GRANULAR CAST 0-3 /LPF (NEGATIVE); MUCUS STRANDS FEW /LPF (Neg); RBC,URINE TNTC /HPF (0-2); SQUAMOUS EPITHELIAL CELL,UR NONE SEEN /LPF (FEW); WBC,URINE TNTC /HPF (0-4)
[2023-08-02] MEDS: oxyCODONE IR 5mg (immed. release) tablet PO PRN ×2 (13:45→21:32)
[2023-08-02] MEDS: DOBUTamine-DoBUTrex 500mg/D5W 250 ML IV SCH (15:44)
--- NOTE | 2023-08-02 19:00 | NUR ---
Problems reprioritized. Patient report given, questions answered & plan of care reviewed with YESSY Alcantara.
[2023-08-02] MEDS: K and/or MAG REPLACEMENT MC SCH (19:58)
[2023-08-02] MEDS: insulin glargine (Lantus) pen - multi-dose SQ SCH (20:56)
[2023-08-03] VITALS (19 sets, daily range): BP systolic 95–117; BP diastolic 42–66; PULSE 51–98; RESP 16–20; TEMP 98–98.9; O2SAT 91–100
[2023-08-03] MEDS: metroNIDAZOLE 500mg tablet PO SCH ×4 (00:15→23:44)
[2023-08-03] MEDS: ipratropium/albuterol 3ml nebule NEB SCH ×2 (03:12→07:12)
[2023-08-03] MEDS: oxyCODONE IR 5mg (immed. release) tablet PO PRN ×4 (03:23→23:44)
--- NOTE | 2023-08-03 06:10 | NUR ---
Patient in room PCU 3021. I have received report from YESSY Alcantara and had the opportunity to ask questions and assume patient care.
--- NOTE | 2023-08-03 06:23 | NUR ---
Patient report given, questions answered & plan of care reviewed with YESSY Torres
[2023-08-03 07:09] LABS: BASOPHILS # (AUTO) 0.1 X10'3 (0-0.2); BASOPHILS % (AUTO) 0.7 % (0-1); EOSINOPHILS # (AUTO) 0.2 X10'3 (0-0.9); EOSINOPHILS % (AUTO) 1.2 % (0-6); HEMATOCRIT 27.4 % (42.0-52.0); HEMOGLOBIN 7.8 g/dl (14.0-17.9); LYMPHOCYTES # (AUTO) 0.7 X10'3 (1.1-4.8); LYMPHOCYTES % (AUTO) 3.9 % (21-51); MEAN CORPUSCULAR HGB CONC 28.5 g/dL (33.0-36.5); MEAN CORPUSCULAR VOLUME 77.4 FL (78-98); MEAN PLATELET VOLUME 7.4 FL (7.4-10.4); MONOCYTES # (AUTO) 1.2 X10'3 (0-0.9); MONOCYTES % (AUTO) 7.1 % (2-12); NEUTROPHILS # (AUTO) 15.2 X10'3 (1.8-7.7); NEUTROPHILS % (AUTO) 87.1 % (42-75); PLATELET COUNT 264 X10'3 (140-440); RED BLOOD COUNT 3.54 X10'6 (4.70-6.10); RED CELL DISTRIBUTION WIDTH 21.6 % (11.5-14.5); WHITE BLOOD COUNT 17.4 X10'3 (4.5-11.0)
[2023-08-03] MEDS: budesonide 0.5mg/2ml UD nebule IH SCH (07:12)
[2023-08-03 07:21] LABS: ALANINE AMINOTRANSFERASE 10 U/L (12-78); ALBUMIN 2.3 G/DL (3.4-5.0); ALBUMIN/GLOBULIN RATIO 0.6 (1.1-1.5); ALKALINE PHOSPHATASE 74 IU/L (46-116); ANION GAP 3 (8-16); ASPARTATE AMINO TRANSFERASE 15 U/L (10-37); BILIRUBIN,TOTAL 0.3 MG/DL (0.1-1.0); BLOOD UREA NITROGEN 25 MG/DL (7-18); BUN/CREATININE RATIO 13.8 (10.0-20.0); CHLORIDE 103 MMOL/L (99-107); CREATININE 1.81 MG/DL (0.60-1.10); GLUCOSE 101 MG/DL (70-104); MAGNESIUM 1.5 MG/DL (1.5-2.4); PHOSPHORUS 3.3 MG/DL (2.3-4.5); POTASSIUM 3.2 MMOL/L (3.5-5.1); SODIUM 140 MMOL/L (135-145); TOTAL CARBON DIOXIDE 34.1 MMOL/L (24-32); TOTAL PROTEIN 5.9 G/DL (6.4-8.2); eCRCL 43 ML/MIN; eGFR 38 ML/MIN
[2023-08-03 07:58] LABS: ANISOCYTOSIS 3+; ELLIPTOCYTES FEW; MICROCYTOSIS 1+; PLATELET ESTIMATE NORMAL; POIKILOCYTOSIS 1+
[2023-08-03] MEDS: K and/or MAG REPLACEMENT MC SCH ×2 (08:30→19:39)
[2023-08-03] MEDS: digoxin 125mcg (0.125mg) tablet PO SCH (10:10)
[2023-08-03] MEDS: furosemide 40mg/4ml inj IV SCH ×2 (10:10→19:18)
[2023-08-03] MEDS: finasteride 5mg tablet PO SCH (10:10)
[2023-08-03] MEDS: pantoprazole 40MG/NS 100ML BAG 100 ML IV SCH (10:10)
[2023-08-03] MEDS: amiodarone 200mg tablet PO SCH (10:11)
[2023-08-03] MEDS: phenazopyridine 100mg tablet PO SCH ×3 (10:11→19:19)
[2023-08-03] MEDS: ciprofloxacin 250mg tablet PO SCH ×2 (10:11→19:18)
[2023-08-03] MEDS: midodrine 5mg tablet PO SCH ×3 (10:11→16:11)
[2023-08-03] MEDS: tamsulosin 0.4mg capsule PO SCH (10:11)
[2023-08-03] MEDS: vitamin A & D ointment-NF 1 APPLIC TUBE TP SCH ×2 (10:12→19:20)
[2023-08-03] MEDS: nystatin 15 GM powder TP SCH ×2 (10:15→19:20)
[2023-08-03] MEDS: potassium Cl 20 mEq SR tablet PO PRN ×3 (10:34→23:43)
[2023-08-03] MEDS: sodium ferric gluc complex inj 125 MG in normal saline 100ml IV soln 100 ML IV SCH (10:40)
--- NOTE | 2023-08-03 12:02 | NUR ---
Reassessment: Patient's wounds have resolved/closed per WOC note 07/30 and 08/02. PO intake continues to fluctuate however has overall declined since last RD assessment, documented with average 58% PO intake since 07/31 meeting 63% estimated energy needs and 73% estimated protein needs. Pt now with a fluid restriction/on a dry tray so no longer receiving beverage preferences though all other food preferences continue to be honored. Unable to send ONS as pt already declined ONS. RD recommends continuing to encourage PO intake. LBM 08/02 with 1.2 L stool output from colostomy per I&O. Pt no longer receiving routine bowel care though has PRN bowel care and prokinetic agent available. Will continue to follow closely and make recommendations as appropriate. Recommendations: 1) Consider liberalizing to regular diet if poor intake persist. Lipid panel WNL with the exception of low HDL and BG well controlled throughout LOS A1c 7.1%; Dry tray per diet order 2) Encourage intake of meals; honor food preferences as able 3) Bowel care PRN 4) Weekly scaled weights Addendum: 08/03/23 at [address] Amended: Links added.
[2023-08-03] MEDS: insulin glargine (Lantus) pen - multi-dose SQ SCH (19:21)
[2023-08-04 02:00] VITALS: BP 111/52; PULSE 71; RESP 16; TEMP 98.3; O2SAT 95
[2023-08-04] MEDS: oxybutynin 5mg tablet PO PRN (02:29)
[2023-08-04 03:39] VITALS: BP 111/52
[2023-08-04] MEDS: DOBUTamine-DoBUTrex 500mg/D5W 250 ML IV SCH (03:39)
[2023-08-04] MEDS: oxyCODONE IR 5mg (immed. release) tablet PO PRN ×2 (04:43→09:29)
--- NOTE | 2023-08-04 06:25 | NUR ---
Problems reprioritized. Patient report given, questions answered & plan of care reviewed with YESSY Streeter.
--- NOTE | 2023-08-04 06:57 | NUR ---
Patient in room U 3021. I have received report from Melissa and had the opportunity to ask questions and assume patient care. Addendum: 08/04/23 at 0658 by Ferdinand Elliott RN Amended: Links added.
--- NOTE | 2023-08-04 07:11 | NUR ---
PAGER ID: [phone] MESSAGE: Halina Herrera-blood culture Gram + cocci in clusters from [facility]
[2023-08-04] MEDS: pantoprazole 40MG/NS 100ML BAG 100 ML IV SCH (07:24)
[2023-08-04 07:25] VITALS: PULSE 76
[2023-08-04] MEDS: digoxin 125mcg (0.125mg) tablet PO SCH (07:25)
[2023-08-04] MEDS: phenazopyridine 100mg tablet PO SCH (07:25)
[2023-08-04] MEDS: metroNIDAZOLE 500mg tablet PO SCH (07:25)
[2023-08-04] MEDS: furosemide 40mg/4ml inj IV SCH (07:25)
[2023-08-04] MEDS: finasteride 5mg tablet PO SCH (07:25)
[2023-08-04] MEDS: tamsulosin 0.4mg capsule PO SCH (07:25)
[2023-08-04] MEDS: amiodarone 200mg tablet PO SCH (07:25)
[2023-08-04] MEDS: midodrine 5mg tablet PO SCH (07:25)
[2023-08-04 07:26] LABS: ALANINE AMINOTRANSFERASE 9 U/L (12-78); ALBUMIN 2.3 G/DL (3.4-5.0); ALBUMIN/GLOBULIN RATIO 0.6 (1.1-1.5); ALKALINE PHOSPHATASE 73 IU/L (46-116); ANION GAP 0 (8-16); ASPARTATE AMINO TRANSFERASE 12 U/L (10-37); BILIRUBIN,TOTAL 0.4 MG/DL (0.1-1.0); BLOOD UREA NITROGEN 23 MG/DL (7-18); BUN/CREATININE RATIO 12.7 (10.0-20.0); CALCIUM 8.4 MG/DL (8.5-10.1); CHLORIDE 102 MMOL/L (99-107); CREATININE 1.81 MG/DL (0.60-1.10); GLUCOSE 94 MG/DL (70-104); POTASSIUM 3.1 MMOL/L (3.5-5.1); SODIUM 140 MMOL/L (135-145); TOTAL CARBON DIOXIDE 37.7 MMOL/L (24-32); TOTAL PROTEIN 6.2 G/DL (6.4-8.2); eCRCL 43 ML/MIN; eGFR 38 ML/MIN
[2023-08-04] MEDS: nystatin 15 GM powder TP SCH (07:26)
[2023-08-04] MEDS: ciprofloxacin 250mg tablet PO SCH (07:26)
[2023-08-04] MEDS: vitamin A & D ointment-NF 1 APPLIC TUBE TP SCH (07:26)
[2023-08-04 07:27] LABS: BASOPHILS # (AUTO) 0.1 X10'3 (0-0.2); BASOPHILS % (AUTO) 0.7 % (0-1); EOSINOPHILS # (AUTO) 0.3 X10'3 (0-0.9); LYMPHOCYTES # (AUTO) 0.7 X10'3 (1.1-4.8); LYMPHOCYTES % (AUTO) 4.3 % (21-51); MEAN PLATELET VOLUME 7.3 FL (7.4-10.4); MONOCYTES # (AUTO) 1.2 X10'3 (0-0.9); MONOCYTES % (AUTO) 7.3 % (2-12); NEUTROPHILS # (AUTO) 14.1 X10'3 (1.8-7.7); NEUTROPHILS % (AUTO) 85.7 % (42-75); PLATELET COUNT 310 X10'3 (140-440); WHITE BLOOD COUNT 16.5 X10'3 (4.5-11.0)
[2023-08-04 07:42] LABS: MAGNESIUM 1.4 MG/DL (1.5-2.4); PHOSPHORUS 2.7 MG/DL (2.3-4.5)
[2023-08-04] MEDS ORDERED: potassium Cl 20 mEq SR tablet PO PRN ×2 (08:15)
[2023-08-04] MEDS ORDERED: potassium Cl 40MEQ/1/2NS 520ml 520 ML IV PRN ×2 (08:15)
[2023-08-04 08:20] LABS: HEMATOCRIT 26.7 % (42.0-52.0); HEMOGLOBIN 8.1 g/dl (14.0-17.9); MEAN CORPUSCULAR HEMOGLOBIN 23.6 PG (27.0-31.0); MEAN CORPUSCULAR HGB CONC 30.2 g/dL (33.0-36.5); MEAN CORPUSCULAR VOLUME 78.1 FL (78-98); RED BLOOD COUNT 3.42 X10'6 (4.70-6.10); RED CELL DISTRIBUTION WIDTH 21.4 % (11.5-14.5)
[2023-08-04 09:29] VITALS: RESP 14
[2023-08-04 09:45] LABS: HYPOCHROMASIA 1+; MICROCYTOSIS 1+; NUCLEATED RED BLOOD CELLS 1 /100WBC (0-0); PLATELET ESTIMATE NORMAL; TOTAL CELLS COUNTED 100
[2023-08-04 09:46] LABS: ANISOCYTOSIS 3+; POLYCHROMASIA 1+
[2023-08-04 09:47] LABS: ELLIPTOCYTES FEW; SCHISTOCYTES FEW; TEAR DROP CELLS 1+; TOXIC GRANULATION 1+
--- NOTE | 2023-08-04 09:57 | NUR ---
meds retrived from pharmacy and added to belongings
--- NOTE | 2023-08-04 11:10 | NUR ---
Late Entry- Discharged and transported patient at 0950 from [facility] to [facility] to room 239 by 1000. Patient alert and orientated throughout transport, Vital signs also stable throughout transport. Patient dobutamine drip unchanged throughout transport. Patient stable and SBAR report given from Primary RN at [facility] to [facility], other information given by myself. Vital signs as follows: 118/54 mmHg, 88 beats/min 16 breaths/min 98% on 2 L via [place] Patients pain level increased upon arrival to [facility] due to bumps and turns. Patient was given oxyIR 5 mg Prior to leaving [facility] RN aware.
[2023-08-04] MEDS ORDERED: K and/or MAG REPLACEMENT MC SCH (20:00)
== END 2023-08-04 09:40 | DRG 291 ==
LOC: ER 11:48 → ED HOLD 17:52 → EDBEDREQ 07-20 05:35 → PCU 3S 07-20 08:00 → CICU 2S 07-23 21:30 → PCU 3S 07-25 17:55
PROVIDERS: ADMIT Family Medicine; ATTEND Internal Medicine
PROC: 0T9B80Z Drainage of Bladder with Drainage Device, Via Natural or Artificial Opening Endoscopic (ICD-10-PCS; 2023-07-25)
PROC: 02H633Z Insertion of Infusion Device into Right Atrium, Percutaneous Approach (ICD-10-PCS; principal; 2023-07-26)
PROC: B548ZZA Ultrasonography of Superior Vena Cava, Guidance (ICD-10-PCS; 2023-07-26)
PROC: 02PAX3Z Removal of Infusion Device from Heart, External Approach (ICD-10-PCS; 2023-08-01)
DX: I13.0 Hypertensive heart and chronic kidney disease with heart failure and stage 1 through stage 4 chronic kidney disease, or unspecified chronic kidney disease (principal); I50.43 Acute on chronic combined systolic (congestive) and diastolic (congestive) heart failure; N17.0 Acute kidney failure with tubular necrosis; J96.00 Acute respiratory failure, unspecified whether with hypoxia or hypercapnia; N30.01 Acute cystitis with hematuria; E87.1 Hypo-osmolality and hyponatremia; N18.4 Chronic kidney disease, stage 4 (severe); L97.929 Non-pressure chronic ulcer of unspecified part of left lower leg with unspecified severity; R78.81 Bacteremia; E66.2 Morbid (severe) obesity with alveolar hypoventilation; I42.9 Cardiomyopathy, unspecified; N21.0 Calculus in bladder; N40.0 Benign prostatic hyperplasia without lower urinary tract symptoms; N32.89 Other specified disorders of bladder; E11.22 Type 2 diabetes mellitus with diabetic chronic kidney disease; I48.0 Paroxysmal atrial fibrillation; E87.5 Hyperkalemia; B95.2 Enterococcus as the cause of diseases classified elsewhere; J44.9 Chronic obstructive pulmonary disease, unspecified; I95.9 Hypotension, unspecified; D64.9 Anemia, unspecified; Z79.01 Long term (current) use of anticoagulants; Z87.442 Personal history of urinary calculi; Z91.199 Patient's noncompliance with other medical treatment and regimen due to unspecified reason; Z93.3 Colostomy status; Z88.8 Allergy status to other drugs, medicaments and biological substances; Z88.0 Allergy status to penicillin; Z88.1 Allergy status to other antibiotic agents; Z88.5 Allergy status to narcotic agent; Z79.899 Other long term (current) drug therapy; Z68.37 Body mass index [BMI] 37.0-37.9, adult
CPT/HCPCS: 36415; 36556; 36589; 71045; 74176; 76770; 76942; 77001; 80048; 80053; 80061; 81001; 82570; 82728; 82948; 83036; 83540; 83550; 83605; 83735; 83880; 84100; 84132; 84145; 84156; 84166; 84300; 84439; 84443; 84484; 85007; 85008; 85025; 85610; 85730; 87040; 87077; 87081; 87088; 87186; 87340; 93005; 93306; 93925; 93970; 94640; 94760; 97110; 97116; 97161; 97530; 97535; 99285; A4314; A4340; A4371; A4398; A4421; A4615; A4620; A4649; A5200; A6212; A6213; A6250; A6258; A6446; A6449; C1751; C1758; C1769; C1894; C9113; G0378; J0744; J1160; J1170; J1250; J1644; J1815; J1940; J2250; J2270; J2405; J2765; J2916; J3010; J3490; J7030; P9045

== ENCOUNTER 2023-09-02 19:14 | Inpatient (IN) | payer BC, MEDICAID ==
[~2023-09-02] VITALS: Ht 175.3 cm; Wt 116.0 kg
[~2023-09-02 19:14] MED LIST changes: -AMIO200T67 PO; -APIX5TAB3 PO; -FURO-150 PO; +FURO20TA4 PO; +METO-384 PO; -METO-395 PO; -ZAR2.5T PO
[2023-09-02 20:29] LABS: BASOPHILS # (AUTO) 0.2 X10'3 (0-0.2); BASOPHILS % (AUTO) 1.2 % (0-1); EOSINOPHILS # (AUTO) 0.5 X10'3 (0-0.9); LYMPHOCYTES # (AUTO) 1.2 X10'3 (1.1-4.8); LYMPHOCYTES % (AUTO) 7.4 % (21-51); MEAN PLATELET VOLUME 6.9 FL (7.4-10.4); MONOCYTES # (AUTO) 0.9 X10'3 (0-0.9); MONOCYTES % (AUTO) 5.2 % (2-12); NEUTROPHILS # (AUTO) 13.9 X10'3 (1.8-7.7); NEUTROPHILS % (AUTO) 83.2 % (42-75); PLATELET COUNT 290 X10'3 (140-440); WHITE BLOOD COUNT 16.7 X10'3 (4.5-11.0)
[2023-09-02 20:46] LABS: ALANINE AMINOTRANSFERASE 24 U/L (12-78); ALBUMIN 2.8 G/DL (3.4-5.0); ALBUMIN/GLOBULIN RATIO 0.7 (1.1-1.5); ALKALINE PHOSPHATASE 125 IU/L (46-116); ANION GAP -5 (8-16); ASPARTATE AMINO TRANSFERASE 18 U/L (10-37); BILIRUBIN,TOTAL 0.5 MG/DL (0.1-1.0); BLOOD UREA NITROGEN 19 MG/DL (7-18); BUN/CREATININE RATIO 11.2 (10.0-20.0); CALCIUM 8.7 MG/DL (8.5-10.1); CHLORIDE 98 MMOL/L (99-107); CREATININE 1.69 MG/DL (0.60-1.10); GLUCOSE 107 MG/DL (70-104); POTASSIUM 3.6 MMOL/L (3.5-5.1); SODIUM 127 MMOL/L (135-145); TOTAL CARBON DIOXIDE 34.2 MMOL/L (24-32); TOTAL PROTEIN 6.9 G/DL (6.4-8.2); eCRCL 46 ML/MIN; eGFR 41 ML/MIN
[2023-09-02 21:08] LABS: HEMATOCRIT 35.4 % (42.0-52.0); HEMOGLOBIN 11.3 g/dl (14.0-17.9); MEAN CORPUSCULAR HGB CONC 31.9 g/dL (33.0-36.5); MEAN CORPUSCULAR VOLUME 81.5 FL (78-98); RED BLOOD COUNT 4.34 X10'6 (4.70-6.10); RED CELL DISTRIBUTION WIDTH 26.6 % (11.5-14.5)
[2023-09-02] MEDS ORDERED: levoFLOXACIN-Levaquin 750MG/D5 150 ML IV ONE (21:35)
[2023-09-02] MEDS ORDERED: levoFLOXACIN-Levaquin 500mg/D5 100 ML IV ONE (21:35)
[2023-09-02] MEDS ORDERED: magnesium Cl slow-release 64mg tablet PO PRN (21:40)
[2023-09-02] MEDS ORDERED: potassium Cl 40MEQ/1/2NS 520ml 520 ML IV PRN (21:40)
[2023-09-02] MEDS ORDERED: potassium Cl 20 mEq SR tablet PO PRN ×2 (21:40)
[2023-09-02] MEDS ORDERED: acetaminophen 325mg tablet PO PRN (21:40)
[2023-09-02] MEDS ORDERED: ondansetron/PF 4mg/2ml inj IV PRN (21:40)
[2023-09-02] MEDS ORDERED: magnesium 2GM in 50ml NS 50 ML IV PRN (21:40)
[2023-09-02] MEDS ORDERED: magnesium 4gm in 100ml NS 100 ML IV PRN (21:40)
[2023-09-02] MEDS: normal saline 1000ml 1,000 ML IV SCH ×2 (22:02→23:09)
[2023-09-02] MEDS ORDERED: levoFLOXACIN 250mg tablet PO ONE (22:05)
--- NOTE | 2023-09-02 22:08 | NUR ---
PT HARD STICK & REFUSING IV AFTER 1 ATTEMPT. DELICIA CORCORAN OKAY'D TO ACCESS OTHER LUMEN ON PICC. THIS RN WENT TO START IV FLUIDS ON PT & HAD DIFFICULTY FLUSHING LINE. PT REPORTS PICC LINE WAS PLACED YESTEDAY 09/01/23 AT [facility]. PRIMARY RN AWARE. VERBALIZED ORDER TO CHANGE IV ABX TO PO.
[2023-09-02 22:30] LABS: ANISOCYTOSIS 3+; PLATELET ESTIMATE NORMAL; TOTAL CELLS COUNTED 100
[2023-09-02 22:31] LABS: ELLIPTOCYTES FEW; HYPOCHROMASIA 1+; POLYCHROMASIA 1+; TEAR DROP CELLS FEW
[2023-09-02 22:32] LABS: MICROCYTOSIS 1+; SCHISTOCYTES FEW
--- NOTE | 2023-09-02 22:45 | NUR ---
MD HANCOCK AT BEDSIDE; ASSESSING AND RE DRESSING WOUND
[2023-09-03] VITALS (24 sets, daily range): BP systolic 105–126; BP diastolic 49–77; PULSE 65–89; RESP 16–27; TEMP 97.2–98.2; O2SAT 5–100
[2023-09-03] MEDS: DOBUTamine-DoBUTrex 500mg/D5W 250 ML IV SCH (03:17)
--- NOTE | 2023-09-03 05:59 | NUR ---
uribe irrigated with 60cc sterile water. 60cc in 100cc out. draining clear urine post flush.
--- NOTE | 2023-09-03 07:26 | NUR ---
Patient in room ED 5. I have received report from YESSY OSBORNE, and had the opportunity to ask questions and assume patient care.
[2023-09-03] MEDS: K and/or MAG REPLACEMENT MC SCH ×2 (08:00→20:00)
[2023-09-03 08:37] LABS: BASOPHILS # (AUTO) 0.2 X10'3 (0-0.2); EOSINOPHILS # (AUTO) 0.5 X10'3 (0-0.9); EOSINOPHILS % (AUTO) 2.4 % (0-6); LYMPHOCYTES % (AUTO) 5.4 % (21-51); MEAN PLATELET VOLUME 7.1 FL (7.4-10.4); NEUTROPHILS # (AUTO) 16.7 X10'3 (1.8-7.7); NEUTROPHILS % (AUTO) 86.2 % (42-75); PLATELET COUNT 318 X10'3 (140-440); WHITE BLOOD COUNT 19.3 X10'3 (4.5-11.0)
[2023-09-03 08:47] LABS: ALBUMIN 2.9 G/DL (3.4-5.0); ANION GAP 6 (8-16); BLOOD UREA NITROGEN 23 MG/DL (7-18); BUN/CREATININE RATIO 12.2 (10.0-20.0); CALCIUM 8.8 MG/DL (8.5-10.1); CHLORIDE 99 MMOL/L (99-107); CREATININE 1.89 MG/DL (0.60-1.10); GLUCOSE 116 MG/DL (70-104); MAGNESIUM 1.7 MG/DL (1.5-2.4); SODIUM 135 MMOL/L (135-145); TOTAL CARBON DIOXIDE 30.3 MMOL/L (24-32); eCRCL 41 ML/MIN; eGFR 36 ML/MIN
[2023-09-03 09:11] LABS: HEMATOCRIT 40.1 % (42.0-52.0); HEMOGLOBIN 12.7 g/dl (14.0-17.9); MEAN CORPUSCULAR HEMOGLOBIN 25.9 PG (27.0-31.0); MEAN CORPUSCULAR HGB CONC 31.6 g/dL (33.0-36.5); RED BLOOD COUNT 4.89 X10'6 (4.70-6.10); RED CELL DISTRIBUTION WIDTH 26.3 % (11.5-14.5)
[2023-09-03 09:24] LABS: TOTAL CELLS COUNTED 100
[2023-09-03 09:25] LABS: ANISOCYTOSIS 3+; ELLIPTOCYTES FEW; HYPOCHROMASIA 1+; LARGE PLATELETS FEW; PLATELET ESTIMATE NORMAL
[2023-09-03 09:26] LABS: MICROCYTOSIS 1+
[2023-09-03] MEDS ORDERED: BUPIVAcaine/PF 2.5mg/ml (0.25%) 10ml vial ONE (14:44)
--- NOTE | 2023-09-03 14:45 | NUR ---
PT TRANSFERRED OFF UNIT BY THIS NURSE. PHONED OR FOR REPORT.MALIHA UNGER RN.
[2023-09-03] MEDS ORDERED: LIDOcaine 2% (20mg/ml) 5ml vial ONE (15:11)
[2023-09-03] MEDS ORDERED: DOBUTamine/D5W 500mg/250ml premix IV ONE (15:11)
[2023-09-03] MEDS ORDERED: sevoflurane 250ml liquid IH ONE (15:11)
[2023-09-03] MEDS ORDERED: fentaNYL/PF 50MCG/1 ML 2ML syringe ONE (15:12)
[2023-09-03] MEDS ORDERED: clindamycin-Cleocin 900mg/D5W 50 ML IV ONE (15:18)
[2023-09-03] MEDS ORDERED: midazolam 1 mg/ML 2ml injection ONE (15:20)
[2023-09-03] MEDS ORDERED: propofol inj 20 ML IV ONE (15:56)
[2023-09-03] MEDS ORDERED: rocuronium 10mg/ml inj IV ONE (15:56)
[2023-09-03] MEDS ORDERED: sugammadex 200mg/2ml injection IV ONE (15:57)
[2023-09-03] MEDS ORDERED: ondansetron/PF 4mg/2ml inj IV PRN (16:20)
[2023-09-03] MEDS ORDERED: ringers solution, lacted 1,000 ML IV SCH (16:20)
[2023-09-03] MEDS ORDERED: meperidine/PF 25mg/ml syringe IV PRN ×3 (16:20)
[2023-09-03] MEDS ORDERED: proCHLORperazine 10 MG/2 ml inj IV PRN (16:20)
[2023-09-03] MEDS ORDERED: morphine 2 MG/ML inj. syringe IV PRN ×2 (16:20→19:30)
[2023-09-03] MEDS ORDERED: morphine 4 MG/ML inj SYRINge IV PRN (16:20)
--- NOTE | 2023-09-03 16:25 | NUR ---
Received from OR via HOSPITAL BED, accompanied by Anesthesiologist DR DUTTA and report given by Anesthesiologist. PT IS GROGGY BUT RESPONDS TO VERBAL STIMULI. PT PLACED ON BEDSIDE MONITOR, VSS. PT IS IN A-FIB WITH CONTROLLED RATE IN 70'S-80'S. PT REMAINS ON DOBUTAMINE GTT WITH NO CHANGES MADE TO RATE. PT HAS PICC LINE TO KAMILLE AND A 20G PIV TO RT HAND. LR IS INFUSING ORDERED. PT HAS NEW STOMA TO RLQ THAT IS CDI, STOMA IS BEEFY RED IN COLOR WITH SMALL AMOUNT OF CLEAR BROWNISH DRAINAGE NOTED IN BAG. PT DENIES PAIN AT THIS TIME. WILL CONTINUE TO ASSESS
[2023-09-03] MEDS ORDERED: APIX5TAB3 PO (17:30)
[2023-09-03] MEDS: normal saline 1000ml 1,000 ML IV SCH ×2 (17:40→21:50)
--- NOTE | 2023-09-03 17:40 | NUR ---
PATIENT HAS MET ALL CRITERIA FOR TRANSFER BACK TO THE PCU FLOOR ON PORTABLE MONITOR. VSS. DRESSINGS INTACT. BED LOW, CALL LIGHT PRESENT AND 2 RAILS UP. RN PRESENT TO ACCEPT CARE OF PATIENT AND REPORT HAS BEEN CALLED KI RN. ALL QUESTIONS ANSWERED TO ACCEPTING RN.
--- NOTE | 2023-09-03 18:58 | NUR ---
Problems reprioritized. Patient report given, questions answered & plan of care reviewed with YESSY HERNANDEZ.
--- NOTE | 2023-09-03 19:08 | NUR ---
Page Sent PAGER ID: [phone] MESSAGE: PT.@ [id number] DENISE VEGA,63,POST ILEOSTOMYPROLAPSE REPAIR NEED PAIN MED, [place] VIDALES,[id number]
[2023-09-03] MEDS ORDERED: METO-292 PO (19:36)
[2023-09-03] MEDS ORDERED: ZOLP5TAB8 PO (19:36)
[2023-09-03] MEDS ORDERED: TOLT2TAB20 PO (19:36)
[2023-09-03] MEDS ORDERED: ALB0.5UD IH (19:36)
[2023-09-03] MEDS ORDERED: MIDO5TAB4 PO (19:36)
[2023-09-03] MEDS ORDERED: OXYC-658 PO (19:36)
[2023-09-03] MEDS ORDERED: FINA5TAB11 PO (19:36)
[2023-09-03] MEDS ORDERED: CYCL-394 PO (19:36)
[2023-09-03] MEDS ORDERED: AMI200T PO (19:36)
[2023-09-03] MEDS ORDERED: INSU200I (19:36)
[2023-09-03] MEDS ORDERED: POLY119P2 PO (19:36)
[2023-09-03] MEDS ORDERED: DIPH25CA51 PO (19:36)
[2023-09-03] MEDS ORDERED: PANT-47 PO (19:36)
[2023-09-03] MEDS ORDERED: OXYC5CAP19 PO (19:36)
[2023-09-03] MEDS ORDERED: FERR325T28 PO (19:36)
[2023-09-03] MEDS ORDERED: ASCO-134 PO (19:36)
[2023-09-03] MEDS ORDERED: ACET325T57 PO (19:36)
[2023-09-03] MEDS ORDERED: FLO0.1T PO (19:36)
[2023-09-03] MEDS ORDERED: DOBU500I5 IV (19:36)
--- NOTE | 2023-09-03 19:43 | NUR ---
Page Sent PT.@ [id number] DENISE VEGA,63,POST ILEOSTOMYPROLAPSE REPAIR NEED PAIN MED, [place] VIDALES,[id number] ,2nd page
[2023-09-04] VITALS (11 sets, daily range): BP systolic 102–120; BP diastolic 61–75; PULSE 80–89; RESP 18–27; TEMP 97.6–98.3; O2SAT 97–98
[2023-09-04] MEDS: normal saline 1000ml 1,000 ML IV SCH ×2 (03:40→13:40)
[2023-09-04] MEDS: morphine 2 MG/ML inj. syringe IV PRN ×3 (03:43→16:47)
[2023-09-04] MEDS: K and/or MAG REPLACEMENT MC SCH ×2 (08:00→20:00)
[2023-09-04 08:31] LABS: BASOPHILS # (AUTO) 0.1 X10'3 (0-0.2); BASOPHILS % (AUTO) 0.6 % (0-1); EOSINOPHILS # (AUTO) 0.2 X10'3 (0-0.9); EOSINOPHILS % (AUTO) 1.2 % (0-6); LYMPHOCYTES # (AUTO) 0.8 X10'3 (1.1-4.8); LYMPHOCYTES % (AUTO) 4.3 % (21-51); MEAN PLATELET VOLUME 7.2 FL (7.4-10.4); MONOCYTES # (AUTO) 1.5 X10'3 (0-0.9); MONOCYTES % (AUTO) 8.5 % (2-12); NEUTROPHILS # (AUTO) 15.3 X10'3 (1.8-7.7); NEUTROPHILS % (AUTO) 85.4 % (42-75); PLATELET COUNT 281 X10'3 (140-440); RED BLOOD COUNT 4.71 X10'6 (4.70-6.10); RED CELL DISTRIBUTION WIDTH 26.6 % (11.5-14.5); WHITE BLOOD COUNT 17.9 X10'3 (4.5-11.0)
[2023-09-04 08:52] LABS: ALBUMIN 2.6 G/DL (3.4-5.0); ANION GAP 6 (8-16); BLOOD UREA NITROGEN 26 MG/DL (7-18); BUN/CREATININE RATIO 13.5 (10.0-20.0); CALCIUM 8.7 MG/DL (8.5-10.1); CHLORIDE 101 MMOL/L (99-107); CREATININE 1.93 MG/DL (0.60-1.10); GLUCOSE 90 MG/DL (70-104); MAGNESIUM 1.6 MG/DL (1.5-2.4); POTASSIUM 4.4 MMOL/L (3.5-5.1); SODIUM 137 MMOL/L (135-145); TOTAL CARBON DIOXIDE 29.6 MMOL/L (24-32); eCRCL 40 ML/MIN; eGFR 36 ML/MIN
[2023-09-04 09:09] LABS: HEMATOCRIT 38.3 % (42.0-52.0); HEMOGLOBIN 12.1 g/dl (14.0-17.9); MEAN CORPUSCULAR VOLUME 81.8 FL (78-98)
[2023-09-04 09:10] LABS: MEAN CORPUSCULAR HEMOGLOBIN 25.7 PG (27.0-31.0); MEAN CORPUSCULAR HGB CONC 31.4 g/dL (33.0-36.5)
[2023-09-04 09:49] LABS: ANISOCYTOSIS 3+; ELLIPTOCYTES FEW; PLATELET ESTIMATE NORMAL
[2023-09-04] MEDS: DOBUTamine-DoBUTrex 500mg/D5W 250 ML IV SCH ×2 (13:38→17:34)
[2023-09-04] MEDS ORDERED: zolpidem 5mg tablet PO PRN (14:50)
[2023-09-04] MEDS: amiodarone 200mg tablet PO SCH (14:50)
[2023-09-04] MEDS: ferrous sulfate 325mg tablet PO SCH (14:50)
[2023-09-04] MEDS ORDERED: OXYcodone immediate-release 10MG tablet PO PRN (14:50)
[2023-09-04] MEDS ORDERED: albuterol 2.5 MG/3 ML nebule NEB PRN (14:50)
[2023-09-04] MEDS: cyclobenzaprine 10mg tablet PO PRN (16:55)
[2023-09-04] MEDS: midodrine 5mg tablet PO SCH (16:55)
[2023-09-04] MEDS: tamsulosin 0.4mg capsule PO SCH (16:55)
[2023-09-04] MEDS: finasteride 5mg tablet PO SCH (16:56)
[2023-09-04] MEDS: apixaban 5mg tablet PO SCH (19:40)
[2023-09-04] MEDS: fludrocortisone acetate 0.1mg tablet PO SCH (19:40)
[2023-09-04] MEDS: tolterodine 2mg SR capsule (24hr) PO SCH (21:51)
[2023-09-05] VITALS (17 sets, daily range): BP systolic 74–122; BP diastolic 43–78; PULSE 82–107; RESP 18–27; TEMP 97.8–98; O2SAT 85–90
[2023-09-05] MEDS: midodrine 5mg tablet PO SCH ×4 (00:15→23:29)
[2023-09-05] MEDS: morphine 2 MG/ML inj. syringe IV PRN ×2 (01:59→22:42)
--- NOTE | 2023-09-05 06:12 | NUR ---
Patient report given, questions answered & plan of care reviewed with YESSY Mcelroy
[2023-09-05] MEDS ORDERED: levoFLOXACIN-Levaquin 750MG/D5 150 ML IV SCH (08:00)
[2023-09-05] MEDS: K and/or MAG REPLACEMENT MC SCH ×2 (08:00→20:00)
[2023-09-05] MEDS: polyethylene glycol 3350 17gm powd pack PO SCH (08:00)
[2023-09-05] MEDS: finasteride 5mg tablet PO SCH (08:00)
[2023-09-05] MEDS: normal saline 1000ml 1,000 ML IV SCH (08:06)
[2023-09-05] MEDS: apixaban 5mg tablet PO SCH ×2 (08:48→20:13)
[2023-09-05] MEDS: ferrous sulfate 325mg tablet PO SCH (08:48)
[2023-09-05] MEDS: tamsulosin 0.4mg capsule PO SCH (08:48)
[2023-09-05] MEDS: amiodarone 200mg tablet PO SCH (08:48)
[2023-09-05] MEDS: fludrocortisone acetate 0.1mg tablet PO SCH ×2 (08:49→20:13)
[2023-09-05] MEDS: cyclobenzaprine 10mg tablet PO PRN (08:50)
[2023-09-05] MEDS: pantoprazole 40mg Tablet.DR PO SCH (08:54)
[2023-09-05 09:57] LABS: BASOPHILS # (AUTO) 0.1 X10'3 (0-0.2); BASOPHILS % (AUTO) 0.6 % (0-1); EOSINOPHILS # (AUTO) 0.2 X10'3 (0-0.9); EOSINOPHILS % (AUTO) 1.2 % (0-6); LYMPHOCYTES # (AUTO) 1.2 X10'3 (1.1-4.8); LYMPHOCYTES % (AUTO) 6.8 % (21-51); MEAN CORPUSCULAR HEMOGLOBIN 25.6 PG (27.0-31.0); MEAN CORPUSCULAR HGB CONC 30.8 g/dL (33.0-36.5); MEAN CORPUSCULAR VOLUME 83.1 FL (78-98); MEAN PLATELET VOLUME 7.3 FL (7.4-10.4); MONOCYTES # (AUTO) 1.8 X10'3 (0-0.9); MONOCYTES % (AUTO) 10.1 % (2-12); NEUTROPHILS # (AUTO) 14.5 X10'3 (1.8-7.7); NEUTROPHILS % (AUTO) 81.3 % (42-75); PLATELET COUNT 274 X10'3 (140-440); RED BLOOD COUNT 4.69 X10'6 (4.70-6.10); RED CELL DISTRIBUTION WIDTH 27.3 % (11.5-14.5); WHITE BLOOD COUNT 17.9 X10'3 (4.5-11.0)
[2023-09-05 10:23] LABS: ALBUMIN 2.6 G/DL (3.4-5.0); ANION GAP 7 (8-16); BLOOD UREA NITROGEN 29 MG/DL (7-18); BUN/CREATININE RATIO 14.5 (10.0-20.0); CALCIUM 8.8 MG/DL (8.5-10.1); CHLORIDE 99 MMOL/L (99-107); GLUCOSE 102 MG/DL (70-104); MAGNESIUM 1.7 MG/DL (1.5-2.4); POTASSIUM 3.9 MMOL/L (3.5-5.1); SODIUM 135 MMOL/L (135-145); TOTAL CARBON DIOXIDE 29.4 MMOL/L (24-32); eCRCL 39 ML/MIN; eGFR 34 ML/MIN
[2023-09-05 10:26] LABS: TOTAL CELLS COUNTED 100
[2023-09-05 10:27] LABS: ANISOCYTOSIS 3+; ELLIPTOCYTES FEW; HYPOCHROMASIA 1+; PLATELET ESTIMATE NORMAL; TEAR DROP CELLS FEW
[2023-09-05] MEDS ORDERED: ondansetron 4mg rapidly disintigrating tab PO PRN (14:40)
--- NOTE | 2023-09-05 14:43 | NUR ---
[facility] note: Per medical records, this is a 63 year old male who admit for prolapse of stoma. Surgery date 09/03/[address] Huang for revision. Wound care in for ostomy appliance change. Nurse at the bedside reports she was burping the appliance and pulled it off by accident. Primary nurse sent consult over for appliance change prior to pt discharge. Removed appliance and cleansed skin with saline, patted dry and applied Sure-prep spray. Silvia-stomal skin pink and free from breakdown. Stoma brick-red in color with moderate amount liquid brown effluent. Ostomy appliances were changed using #03 appliance. Good seals achieved. Patient reports he is independent with ostomy care at home and has supplies. Primary nurse reports he is discharging home today. Reported off at the bedside.
--- NOTE | 2023-09-05 16:43 | NUR ---
met with dr renteria at bedside this morning and weaning down the dobutamine was discussed. began the weaning process and at one point, the patients bp went down to 70's systolic--this was in the presence of midodrine and florinef administration. dobutamine is running at 3.48. blood pressure has stabilized. wocn in to assess leaking ostomy, wocn changed out bags pt tolerated well. pt has been participating more in his care this visit, compared to prior visits. and today he seemed to have a "down" day. encouraged patient as much as he would allow.
[2023-09-05] MEDS: tolterodine 2mg SR capsule (24hr) PO SCH (20:13)
[2023-09-06] VITALS (9 sets, daily range): BP systolic 97–129; BP diastolic 58–85; PULSE 51–97; RESP 16–20; TEMP 97.2–98.1; O2SAT 90–99
[2023-09-06] MEDS: morphine 2 MG/ML inj. syringe IV PRN ×3 (04:23→18:52)
--- NOTE | 2023-09-06 06:49 | NUR ---
Patient report given, questions answered & plan of care reviewed with YESSY Mcelroy
[2023-09-06] MEDS: normal saline 1000ml 1,000 ML IV SCH (07:30)
[2023-09-06] MEDS: midodrine 5mg tablet PO SCH ×2 (08:00→16:52)
[2023-09-06] MEDS: polyethylene glycol 3350 17gm powd pack PO SCH (08:00)
[2023-09-06] MEDS: K and/or MAG REPLACEMENT MC SCH (08:00)
[2023-09-06] MEDS: fludrocortisone acetate 0.1mg tablet PO SCH (08:23)
[2023-09-06] MEDS: tamsulosin 0.4mg capsule PO SCH (08:23)
[2023-09-06] MEDS: apixaban 5mg tablet PO SCH (08:23)
[2023-09-06] MEDS: ferrous sulfate 325mg tablet PO SCH (08:23)
[2023-09-06] MEDS: amiodarone 200mg tablet PO SCH (08:23)
[2023-09-06] MEDS: pantoprazole 40mg Tablet.DR PO SCH (08:23)
[2023-09-06] MEDS: finasteride 5mg tablet PO SCH (08:34)
[2023-09-06 09:32] LABS: BASOPHILS # (AUTO) 0.1 X10'3 (0-0.2); BASOPHILS % (AUTO) 0.7 % (0-1); EOSINOPHILS # (AUTO) 0.3 X10'3 (0-0.9); HEMATOCRIT 38.7 % (42.0-52.0); HEMOGLOBIN 11.7 g/dl (14.0-17.9); LYMPHOCYTES # (AUTO) 1.1 X10'3 (1.1-4.8); LYMPHOCYTES % (AUTO) 8.8 % (21-51); MEAN CORPUSCULAR HEMOGLOBIN 25.6 PG (27.0-31.0); MEAN CORPUSCULAR HGB CONC 30.3 g/dL (33.0-36.5); MEAN CORPUSCULAR VOLUME 84.3 FL (78-98); MEAN PLATELET VOLUME 7.4 FL (7.4-10.4); MONOCYTES # (AUTO) 1.3 X10'3 (0-0.9); MONOCYTES % (AUTO) 10.3 % (2-12); NEUTROPHILS # (AUTO) 10.2 X10'3 (1.8-7.7); NEUTROPHILS % (AUTO) 78.2 % (42-75); PLATELET COUNT 288 X10'3 (140-440); RED BLOOD COUNT 4.59 X10'6 (4.70-6.10); RED CELL DISTRIBUTION WIDTH 26.9 % (11.5-14.5); WHITE BLOOD COUNT 13.1 X10'3 (4.5-11.0)
[2023-09-06 09:54] LABS: ALBUMIN 2.5 G/DL (3.4-5.0); ANION GAP 5 (8-16); BLOOD UREA NITROGEN 31 MG/DL (7-18); BUN/CREATININE RATIO 15.6 (10.0-20.0); CALCIUM 8.4 MG/DL (8.5-10.1); CHLORIDE 99 MMOL/L (99-107); CREATININE 1.99 MG/DL (0.60-1.10); GLUCOSE 146 MG/DL (70-104); MAGNESIUM 1.6 MG/DL (1.5-2.4); POTASSIUM 4.2 MMOL/L (3.5-5.1); SODIUM 133 MMOL/L (135-145); TOTAL CARBON DIOXIDE 29.3 MMOL/L (24-32); eCRCL 39 ML/MIN; eGFR 34 ML/MIN
[2023-09-06 10:58] LABS: ANISOCYTOSIS 3+; PLATELET ESTIMATE NORMAL; TOTAL CELLS COUNTED 100
[2023-09-06 10:59] LABS: ELLIPTOCYTES FEW; TEAR DROP CELLS FEW; TOXIC GRANULATION 1+
[2023-09-06 11:00] LABS: SCHISTOCYTES FEW
[2023-09-06] MEDS ORDERED: polyethylene glycol 3350 17gm powd pack PO PRN (14:40)
[2023-09-06] MEDS ORDERED: oxyCODONE IR 5mg (immed. release) tablet PO PRN ×2 (16:37→16:40)
[2023-09-06] MEDS ORDERED: oxyCODONE IR 5mg (immed. release) tablet PO ONE (16:40)
[2023-09-06] MEDS: DOBUTamine-DoBUTrex 500mg/D5W 250 ML IV SCH (17:34)
[2023-09-07] MEDS ORDERED: docusate sod 100mg capsule PO SCH (08:00)
== END 2023-09-06 20:50 | DRG 348 ==
LOC: ER 19:15 → ED HOLD 21:42 → PCU 3S 09-03 07:38
PROVIDERS: ADMIT Internal Medicine; ATTEND Internal Medicine
PROC: 0WQFXZ2 Repair Abdominal Wall, Stoma, External Approach (ICD-10-PCS; principal; 2023-09-03 15:11)
DX: K94.09 Other complications of colostomy (principal); I50.22 Chronic systolic (congestive) heart failure; T83.518A Infection and inflammatory reaction due to other urinary catheter, initial encounter; N17.9 Acute kidney failure, unspecified; J44.9 Chronic obstructive pulmonary disease, unspecified; N40.0 Benign prostatic hyperplasia without lower urinary tract symptoms; K94.19 Other complications of enterostomy; I11.0 Hypertensive heart disease with heart failure; D72.829 Elevated white blood cell count, unspecified; K21.9 Gastro-esophageal reflux disease without esophagitis; I95.9 Hypotension, unspecified; E11.9 Type 2 diabetes mellitus without complications; I48.91 Unspecified atrial fibrillation; Y83.8 Other surgical procedures as the cause of abnormal reaction of the patient, or of later complication, without mention of misadventure at the time of the procedure; Y82.8 Other medical devices associated with adverse incidents; Z87.442 Personal history of urinary calculi; Z88.0 Allergy status to penicillin; Z88.5 Allergy status to narcotic agent; Z88.7 Allergy status to serum and vaccine; Z88.8 Allergy status to other drugs, medicaments and biological substances; Z79.01 Long term (current) use of anticoagulants; Z79.899 Other long term (current) drug therapy; Y92.89 Other specified places as the place of occurrence of the external cause
CPT/HCPCS: 99285; Z7506; Z7508; 36415; 71045; 80048; 80053; 83605; 83735; 84145; 85007; 85008; 85025; 87040; 87081; 93005; 97161; 97530; A4421; A4615; A4618; A4649; A6212; A6213; A6253; A6449; A7000; G0378; J1250; J2250; J2270; J2704; J3010; J3490; J7030; J7120

== ENCOUNTER 2023-10-18 20:11 | Inpatient (IN) | payer BC, MEDICAID ==
[~2023-10-18] VITALS: Ht 175.3 cm; Wt 89.2 kg
[~2023-10-18 20:11] MED LIST changes: +ACET325T57 PO; +ALB0.5UD IH; +AMI200T PO; +APIX5TAB3 PO; +ASCO-134 PO; +CYCL-394 PO; +DIPH25CA51 PO; +DOBU500I5 IV; +FERR325T28 PO; +FINA5TAB11 PO; +FLO0.1T PO; -FURO20TA4 PO; +INSU200I; +METO-292 PO; -METO-384 PO; +MIDO5TAB4 PO; +OXYC-658 PO; +OXYC5CAP19 PO; +PANT-47 PO; +POLY119P2 PO; +TOLT2TAB20 PO; +ZOLP5TAB8 PO
[2023-10-18 21:52] LABS: BASOPHILS # (AUTO) 0.1 X10'3 (0-0.2); BASOPHILS % (AUTO) 0.6 % (0-1); EOSINOPHILS # (AUTO) 0.1 X10'3 (0-0.9); EOSINOPHILS % (AUTO) 0.7 % (0-6); HEMATOCRIT 33.1 % (42.0-52.0); HEMOGLOBIN 10.3 g/dl (14.0-17.9); LYMPHOCYTES # (AUTO) 0.8 X10'3 (1.1-4.8); LYMPHOCYTES % (AUTO) 4.3 % (21-51); MEAN CORPUSCULAR HEMOGLOBIN 26.8 PG (27.0-31.0); MEAN CORPUSCULAR VOLUME 86.4 FL (78-98); MEAN PLATELET VOLUME 7.3 FL (7.4-10.4); MONOCYTES # (AUTO) 0.7 X10'3 (0-0.9); MONOCYTES % (AUTO) 3.8 % (2-12); NEUTROPHILS % (AUTO) 90.6 % (42-75); PLATELET COUNT 227 X10'3 (140-440); RED BLOOD COUNT 3.84 X10'6 (4.70-6.10); RED CELL DISTRIBUTION WIDTH 25.4 % (11.5-14.5); WHITE BLOOD COUNT 18.8 X10'3 (4.5-11.0)
[2023-10-18 21:57] LABS: ALANINE AMINOTRANSFERASE 15 U/L (12-78); ALBUMIN/GLOBULIN RATIO 0.9 (1.1-1.5); ALKALINE PHOSPHATASE 100 IU/L (46-116); ANION GAP 8 (8-16); ASPARTATE AMINO TRANSFERASE 10 U/L (10-37); BILIRUBIN,TOTAL 0.4 MG/DL (0.1-1.0); BLOOD UREA NITROGEN 16 MG/DL (7-18); BUN/CREATININE RATIO 6.6 (10.0-20.0); CALCIUM 7.9 MG/DL (8.5-10.1); CHLORIDE 109 MMOL/L (99-107); CREATININE 2.42 MG/DL (0.60-1.10); GLUCOSE 114 MG/DL (70-104); LIPASE 26 U/L (16-77); POTASSIUM 3.6 MMOL/L (3.5-5.1); SODIUM 139 MMOL/L (135-145); TOTAL PROTEIN 6.4 G/DL (6.4-8.2); eCRCL 32 ML/MIN; eGFR 27 ML/MIN
[2023-10-18] MEDS ORDERED: SULF1TAB45 PO (21:57)
[2023-10-18 22:16] LABS: ANISOCYTOSIS 3+; HYPOCHROMASIA 1+; PLATELET ESTIMATE NORMAL
[2023-10-18 22:17] LABS: ELLIPTOCYTES 1+; TEAR DROP CELLS FEW
[2023-10-18 22:39] LABS: PRO BRAIN NATRIURETIC PEPTIDE 2591 PG/ML (0-125)
[2023-10-19] MEDS ORDERED: acetaminophen 325mg tablet PO PRN ×2 (02:10)
[2023-10-19] MEDS ORDERED: normal saline 1000ml 1,000 ML IV SCH (02:10)
[2023-10-19] MEDS ORDERED: morphine 2 MG/ML inj. syringe IV PRN (02:10)
[2023-10-19] MEDS ORDERED: mag hydrox/Alum hydrox/simeth 30ml oral suspension PO PRN (02:10)
[2023-10-19] MEDS ORDERED: bisacodyl 10mg suppository rectal RC PRN (02:10)
[2023-10-19] MEDS ORDERED: magnesium hydroxide 30ml (MOM) UD suspension PO PRN (02:10)
[2023-10-19] MEDS: magnesium Cl slow-release 64mg tablet PO PRN ×2 (05:28→21:57)
[2023-10-19 07:36] LABS: APTT 31 SECONDS (22-32); INR 1.2 INR; PROTHROMBIN TIME 12.5 SECONDS (9.0-12.0)
[2023-10-19] MEDS ORDERED: levoFLOXACIN-Levaquin 500mg/D5 100 ML IV SCH (08:00)
[2023-10-19] MEDS: docusate sod 100mg capsule PO SCH ×2 (08:00→20:00)
[2023-10-19] MEDS: pantoprazole 40MG/NS 100ML BAG 100 ML IV SCH (08:00)
[2023-10-19] MEDS: levoFLOXACIN-Levaquin 750MG/D5 150 ML IV SCH (09:20)
[2023-10-19 12:41] LABS: BASOPHILS # (AUTO) 0.1 X10'3 (0-0.2); BASOPHILS % (AUTO) 0.7 % (0-1); EOSINOPHILS # (AUTO) 0.3 X10'3 (0-0.9); EOSINOPHILS % (AUTO) 1.8 % (0-6); LYMPHOCYTES # (AUTO) 1.1 X10'3 (1.1-4.8); LYMPHOCYTES % (AUTO) 7.6 % (21-51); MEAN PLATELET VOLUME 7.6 FL (7.4-10.4); MONOCYTES # (AUTO) 0.8 X10'3 (0-0.9); NEUTROPHILS # (AUTO) 11.7 X10'3 (1.8-7.7); NEUTROPHILS % (AUTO) 83.9 % (42-75); PLATELET COUNT 206 X10'3 (140-440); WHITE BLOOD COUNT 13.9 X10'3 (4.5-11.0)
[2023-10-19 12:57] LABS: ALANINE AMINOTRANSFERASE 12 U/L (12-78); ALBUMIN 2.3 G/DL (3.4-5.0); ALBUMIN/GLOBULIN RATIO 0.7 (1.1-1.5); ALKALINE PHOSPHATASE 83 IU/L (46-116); ANION GAP 8 (8-16); ASPARTATE AMINO TRANSFERASE 9 U/L (10-37); BILIRUBIN,TOTAL 0.4 MG/DL (0.1-1.0); BLOOD UREA NITROGEN 13 MG/DL (7-18); BUN/CREATININE RATIO 5.6 (10.0-20.0); CALCIUM 7.5 MG/DL (8.5-10.1); CHLORIDE 109 MMOL/L (99-107); CREATININE 2.32 MG/DL (0.60-1.10); GLUCOSE 115 MG/DL (70-104); POTASSIUM 3.3 MMOL/L (3.5-5.1); SODIUM 140 MMOL/L (135-145); TOTAL CARBON DIOXIDE 22.8 MMOL/L (24-32); TOTAL PROTEIN 5.4 G/DL (6.4-8.2); eCRCL 33 ML/MIN; eGFR 29 ML/MIN
[2023-10-19 13:16] LABS: HEMATOCRIT 32.2 % (42.0-52.0); MEAN CORPUSCULAR HEMOGLOBIN 27.5 PG (27.0-31.0); MEAN CORPUSCULAR HGB CONC 31.2 g/dL (33.0-36.5); MEAN CORPUSCULAR VOLUME 88.1 FL (78-98); RED BLOOD COUNT 3.65 X10'6 (4.70-6.10)
[2023-10-19 13:25] LABS: ANISOCYTOSIS 3+; PLATELET ESTIMATE NORMAL; POIKILOCYTOSIS FEW
[2023-10-19 17:15] LABS: CLARITY,URINE BLOODY (Clear); COLOR,URINE RED (Yellow); UA COLLECTION TYPE FOLEY CATH
[2023-10-19 17:17] LABS: BACTERIA,URINE 1+ /HPF (Neg); MUCUS STRANDS NONE SEEN /LPF (Neg); RBC,URINE TNTC /HPF (0-2); SQUAMOUS EPITHELIAL CELL,UR NONE SEEN /LPF (FEW); WBC,URINE TNTC /HPF (0-4)
[2023-10-19 20:00] VITALS: RESP 18; O2SAT 95
[2023-10-19 20:15] LABS: ALANINE AMINOTRANSFERASE 11 U/L (12-78); ALBUMIN 2.3 G/DL (3.4-5.0); ALBUMIN/GLOBULIN RATIO 0.7 (1.1-1.5); ALKALINE PHOSPHATASE 86 IU/L (46-116); ANION GAP 8 (8-16); ASPARTATE AMINO TRANSFERASE 12 U/L (10-37); BILIRUBIN,TOTAL 0.3 MG/DL (0.1-1.0); BLOOD UREA NITROGEN 14 MG/DL (7-18); BUN/CREATININE RATIO 6.3 (10.0-20.0); CALCIUM 7.6 MG/DL (8.5-10.1); CHLORIDE 110 MMOL/L (99-107); CREATININE 2.24 MG/DL (0.60-1.10); GLUCOSE 95 MG/DL (70-104); MAGNESIUM 1.1 MG/DL (1.5-2.4); POTASSIUM 3.7 MMOL/L (3.5-5.1); SODIUM 143 MMOL/L (135-145); TOTAL CARBON DIOXIDE 25.2 MMOL/L (24-32); TOTAL PROTEIN 5.4 G/DL (6.4-8.2); eCRCL 35 ML/MIN; eGFR 30 ML/MIN
[2023-10-19] MEDS ORDERED: temazepam 15mg capsule PO PRN (21:00)
[2023-10-19 22:00] VITALS: BP 133/72; PULSE 86; RESP 21; TEMP 97.8; O2SAT 96
[2023-10-20] VITALS (9 sets, daily range): BP systolic 123–137; BP diastolic 69–85; PULSE 81–89; RESP 16–24; TEMP 97.8–98.7; O2SAT 95–96
[2023-10-20] MEDS: HYDROcodone/acetaminophen 5mg/325mg tablet PO PRN ×2 (04:59→18:03)
[2023-10-20 06:56] LABS: BASOPHILS # (AUTO) 0.1 X10'3 (0-0.2); BASOPHILS % (AUTO) 0.6 % (0-1); EOSINOPHILS # (AUTO) 0.2 X10'3 (0-0.9); EOSINOPHILS % (AUTO) 1.5 % (0-6); HEMATOCRIT 29.7 % (42.0-52.0); HEMOGLOBIN 9.2 g/dl (14.0-17.9); LYMPHOCYTES # (AUTO) 1.2 X10'3 (1.1-4.8); LYMPHOCYTES % (AUTO) 8.4 % (21-51); MEAN CORPUSCULAR HEMOGLOBIN 26.7 PG (27.0-31.0); MEAN CORPUSCULAR HGB CONC 31.2 g/dL (33.0-36.5); MEAN CORPUSCULAR VOLUME 85.6 FL (78-98); MEAN PLATELET VOLUME 7.3 FL (7.4-10.4); MONOCYTES # (AUTO) 0.8 X10'3 (0-0.9); MONOCYTES % (AUTO) 5.8 % (2-12); NEUTROPHILS % (AUTO) 83.7 % (42-75); PLATELET COUNT 212 X10'3 (140-440); RED BLOOD COUNT 3.46 X10'6 (4.70-6.10); RED CELL DISTRIBUTION WIDTH 25.6 % (11.5-14.5); WHITE BLOOD COUNT 14.3 X10'3 (4.5-11.0)
[2023-10-20 07:08] LABS: ALANINE AMINOTRANSFERASE 9 U/L (12-78); ALBUMIN 2.3 G/DL (3.4-5.0); ALBUMIN/GLOBULIN RATIO 0.7 (1.1-1.5); ALKALINE PHOSPHATASE 86 IU/L (46-116); ANION GAP 10 (8-16); ASPARTATE AMINO TRANSFERASE 14 U/L (10-37); BILIRUBIN,TOTAL 0.3 MG/DL (0.1-1.0); BLOOD UREA NITROGEN 13 MG/DL (7-18); BUN/CREATININE RATIO 5.6 (10.0-20.0); CALCIUM 7.7 MG/DL (8.5-10.1); CHLORIDE 108 MMOL/L (99-107); CREATININE 2.34 MG/DL (0.60-1.10); GLUCOSE 97 MG/DL (70-104); POTASSIUM 3.4 MMOL/L (3.5-5.1); SODIUM 142 MMOL/L (135-145); TOTAL CARBON DIOXIDE 24.5 MMOL/L (24-32); TOTAL PROTEIN 5.5 G/DL (6.4-8.2); eCRCL 33 ML/MIN; eGFR 28 ML/MIN
[2023-10-20] MEDS: docusate sod 100mg capsule PO SCH ×2 (08:00→19:15)
[2023-10-20] MEDS: pantoprazole 40MG/NS 100ML BAG 100 ML IV SCH (09:05)
[2023-10-20] MEDS ORDERED: hydrALAZINE 20mg/ml inj. IV PRN (15:15)
[2023-10-20] MEDS ORDERED: ondansetron/PF 4mg/2ml inj IV PRN (15:15)
[2023-10-20] MEDS ORDERED: labetalol 20mg/4ml (5mg/ml) syringe IV PRN (15:15)
[2023-10-20] MEDS ORDERED: morphine 2 MG/ML inj. syringe IV PRN (15:15)
[2023-10-20] MEDS ORDERED: morphine 4 MG/ML inj SYRINge IV PRN (15:15)
[2023-10-20] MEDS ORDERED: acetaminophen 1,000mg/100ml IV 100 ML IV ONE (15:15)
[2023-10-20] MEDS ORDERED: ringers solution, lacted 1,000 ML IV SCH (15:15)
[2023-10-20] MEDS ORDERED: HYDROmorphone/PF 0.2 MG/ML SYRINGE IV PRN ×2 (15:15)
[2023-10-20] MEDS ORDERED: iohexol 300 MG/1 ML 50ml polymer ONE (15:17)
[2023-10-20] MEDS ORDERED: potassium Cl 20mEq/100mL bag 100 ML IV PRN (20:05)
[2023-10-20] MEDS ORDERED: potassium Cl 40MEQ/1/2NS 520ml 520 ML IV PRN ×2 (20:05→20:35)
[2023-10-20] MEDS ORDERED: potassium CL 10mEq/100ml bag 100 ML IV PRN (20:05)
[2023-10-20] MEDS ORDERED: potassium Cl 20 mEq SR tablet PO PRN ×2 (20:05→20:35)
[2023-10-20] MEDS ORDERED: potassium Cl 40MEQ/270ML bag 250 ML IV PRN (20:05)
[2023-10-20] MEDS ORDERED: magnesium 4gm in 100ml NS 100 ML IV PRN (20:35)
[2023-10-20] MEDS ORDERED: magnesium 2GM in 50ml NS 50 ML IV PRN (20:35)
[2023-10-20] MEDS ORDERED: magnesium Cl slow-release 64mg tablet PO PRN (20:35)
[2023-10-20] MEDS: potassium Cl 20 mEq SR tablet PO PRN (20:42)
[2023-10-20] MEDS: furosemide 40mg tablet PO SCH (21:00)
[2023-10-21] MEDS: HYDROcodone/acetaminophen 5mg/325mg tablet PO PRN ×4 (02:23→22:50)
[2023-10-21 06:03] LABS: BASOPHILS # (AUTO) 0.1 X10'3 (0-0.2); BASOPHILS % (AUTO) 0.8 % (0-1); EOSINOPHILS # (AUTO) 0.2 X10'3 (0-0.9); EOSINOPHILS % (AUTO) 1.7 % (0-6); HEMATOCRIT 30.5 % (42.0-52.0); HEMOGLOBIN 9.6 g/dl (14.0-17.9); LYMPHOCYTES # (AUTO) 1.3 X10'3 (1.1-4.8); MEAN CORPUSCULAR HEMOGLOBIN 27.2 PG (27.0-31.0); MEAN CORPUSCULAR HGB CONC 31.4 g/dL (33.0-36.5); MEAN CORPUSCULAR VOLUME 86.5 FL (78-98); MEAN PLATELET VOLUME 7.5 FL (7.4-10.4); MONOCYTES # (AUTO) 0.7 X10'3 (0-0.9); MONOCYTES % (AUTO) 5.4 % (2-12); NEUTROPHILS % (AUTO) 82.1 % (42-75); PLATELET COUNT 233 X10'3 (140-440); RED BLOOD COUNT 3.53 X10'6 (4.70-6.10); RED CELL DISTRIBUTION WIDTH 24.7 % (11.5-14.5); WHITE BLOOD COUNT 13.5 X10'3 (4.5-11.0)
[2023-10-21 06:13] LABS: ALANINE AMINOTRANSFERASE 8 U/L (12-78); ALBUMIN 2.4 G/DL (3.4-5.0); ALBUMIN/GLOBULIN RATIO 0.8 (1.1-1.5); ALKALINE PHOSPHATASE 86 IU/L (46-116); ANION GAP 7 (8-16); ASPARTATE AMINO TRANSFERASE 13 U/L (10-37); BILIRUBIN,TOTAL 0.3 MG/DL (0.1-1.0); BLOOD UREA NITROGEN 13 MG/DL (7-18); BUN/CREATININE RATIO 5.8 (10.0-20.0); CHLORIDE 109 MMOL/L (99-107); CREATININE 2.25 MG/DL (0.60-1.10); GLUCOSE 91 MG/DL (70-104); MAGNESIUM 1.3 MG/DL (1.5-2.4); POTASSIUM 3.6 MMOL/L (3.5-5.1); SODIUM 141 MMOL/L (135-145); TOTAL PROTEIN 5.6 G/DL (6.4-8.2); eCRCL 34 ML/MIN; eGFR 30 ML/MIN
[2023-10-21 07:00] VITALS: BP 136/77; PULSE 58; RESP 21; TEMP 98.3; O2SAT 96
[2023-10-21] MEDS: docusate sod 100mg capsule PO SCH ×2 (08:00→19:21)
[2023-10-21] MEDS: K and/or MAG REPLACEMENT MC SCH ×2 (08:00→20:00)
[2023-10-21] MEDS: furosemide 40mg tablet PO SCH (08:00)
[2023-10-21] MEDS: magnesium Cl slow-release 64mg tablet PO PRN ×2 (08:53→19:21)
[2023-10-21] MEDS: pantoprazole 40MG/NS 100ML BAG 100 ML IV SCH (10:12)
[2023-10-21 11:00] VITALS: BP 98/66; PULSE 100; RESP 18; TEMP 98.2; O2SAT 95
[2023-10-21] MEDS: levoFLOXACIN-Levaquin 750MG/D5 150 ML IV SCH (11:06)
[2023-10-21 15:00] VITALS: BP 121/83; PULSE 86; RESP 14; TEMP 98.1; O2SAT 95
[2023-10-21 18:00] VITALS: BP 130/79; PULSE 81; RESP 18; TEMP 98.1; O2SAT 94
[2023-10-21 20:00] VITALS: RESP 18; O2SAT 94
[2023-10-21 22:00] VITALS: BP 118/76; PULSE 84; RESP 18; TEMP 98; O2SAT 97
[2023-10-21] MEDS: ondansetron 4mg rapidly disintigrating tab PO PRN (22:50)
[2023-10-22 02:00] VITALS: BP 128/80; PULSE 91; RESP 18; TEMP 98; O2SAT 96
[2023-10-22] MEDS: HYDROcodone/acetaminophen 5mg/325mg tablet PO PRN ×3 (03:26→20:55)
[2023-10-22 07:00] VITALS: BP 120/74; PULSE 82; RESP 18; TEMP 98.3; O2SAT 95
[2023-10-22 07:08] LABS: BASOPHILS # (AUTO) 0.1 X10'3 (0-0.2); BASOPHILS % (AUTO) 0.8 % (0-1); EOSINOPHILS # (AUTO) 0.3 X10'3 (0-0.9); EOSINOPHILS % (AUTO) 2.7 % (0-6); HEMATOCRIT 31.6 % (42.0-52.0); HEMOGLOBIN 9.8 g/dl (14.0-17.9); LYMPHOCYTES # (AUTO) 1.1 X10'3 (1.1-4.8); LYMPHOCYTES % (AUTO) 9.3 % (21-51); MEAN CORPUSCULAR HEMOGLOBIN 26.8 PG (27.0-31.0); MEAN CORPUSCULAR HGB CONC 30.9 g/dL (33.0-36.5); MEAN CORPUSCULAR VOLUME 86.6 FL (78-98); MEAN PLATELET VOLUME 7.4 FL (7.4-10.4); MONOCYTES # (AUTO) 0.8 X10'3 (0-0.9); MONOCYTES % (AUTO) 6.7 % (2-12); NEUTROPHILS # (AUTO) 9.9 X10'3 (1.8-7.7); NEUTROPHILS % (AUTO) 80.5 % (42-75); PLATELET COUNT 243 X10'3 (140-440); RED BLOOD COUNT 3.65 X10'6 (4.70-6.10); RED CELL DISTRIBUTION WIDTH 24.8 % (11.5-14.5); WHITE BLOOD COUNT 12.3 X10'3 (4.5-11.0)
[2023-10-22 07:25] LABS: ALANINE AMINOTRANSFERASE 8 U/L (12-78); ALBUMIN 2.4 G/DL (3.4-5.0); ALBUMIN/GLOBULIN RATIO 0.7 (1.1-1.5); ALKALINE PHOSPHATASE 88 IU/L (46-116); ANION GAP 8 (8-16); ASPARTATE AMINO TRANSFERASE 13 U/L (10-37); BILIRUBIN,TOTAL 0.3 MG/DL (0.1-1.0); BLOOD UREA NITROGEN 12 MG/DL (7-18); BUN/CREATININE RATIO 5.2 (10.0-20.0); CALCIUM 7.8 MG/DL (8.5-10.1); CHLORIDE 108 MMOL/L (99-107); CREATININE 2.29 MG/DL (0.60-1.10); GLUCOSE 80 MG/DL (70-104); MAGNESIUM 1.2 MG/DL (1.5-2.4); POTASSIUM 3.4 MMOL/L (3.5-5.1); SODIUM 142 MMOL/L (135-145); TOTAL CARBON DIOXIDE 26.5 MMOL/L (24-32); TOTAL PROTEIN 5.8 G/DL (6.4-8.2); eCRCL 34 ML/MIN; eGFR 29 ML/MIN
[2023-10-22] MEDS: furosemide 40mg tablet PO SCH (08:00)
[2023-10-22] MEDS: K and/or MAG REPLACEMENT MC SCH ×2 (08:00→20:33)
[2023-10-22] MEDS: docusate sod 100mg capsule PO SCH ×2 (08:00→20:00)
[2023-10-22 08:11] LABS: ANISOCYTOSIS 3+; ELLIPTOCYTES 1+; PLATELET ESTIMATE NORMAL; TEAR DROP CELLS FEW
[2023-10-22 08:12] LABS: SCHISTOCYTES FEW
[2023-10-22] MEDS: ondansetron 4mg rapidly disintigrating tab PO PRN (08:30)
[2023-10-22] MEDS: potassium Cl 20 mEq SR tablet PO PRN ×2 (08:33→20:32)
[2023-10-22] MEDS: magnesium Cl slow-release 64mg tablet PO PRN (08:34)
[2023-10-22] MEDS: pantoprazole 40MG/NS 100ML BAG 100 ML IV SCH (09:57)
[2023-10-22 11:00] VITALS: BP 119/80; PULSE 82; RESP 21; TEMP 98.5; O2SAT 97
[2023-10-22 18:00] VITALS: BP 126/67; PULSE 80; RESP 18; TEMP 98.3; O2SAT 96
[2023-10-22 20:00] VITALS: RESP 18; O2SAT 96
[2023-10-22] MEDS: magnesium 2GM in 50ml NS 50 ML IV PRN (20:32)
[2023-10-22] MEDS ORDERED: CefTRIAXone/D5W-Rocephin 1gm 50 ML IV ONE (20:35)
[2023-10-22] MEDS ORDERED: vancomycin/NS 1 GM ADD-VANTAGE 250 ML IV ONE (20:35)
[2023-10-22 22:00] VITALS: BP 122/74; PULSE 81; RESP 18; TEMP 98.5; O2SAT 97
[2023-10-23] MEDS: magnesium 4gm in 100ml NS 100 ML IV PRN (01:23)
[2023-10-23] MEDS: potassium Cl 20 mEq SR tablet PO PRN (04:30)
[2023-10-23] MEDS: HYDROcodone/acetaminophen 5mg/325mg tablet PO PRN ×3 (04:31→09:54)
[2023-10-23 06:00] VITALS: BP 114/75; PULSE 82; RESP 17; TEMP 98.1; O2SAT 92
[2023-10-23 07:22] LABS: ALANINE AMINOTRANSFERASE 9 U/L (12-78); ALBUMIN 2.5 G/DL (3.4-5.0); ALBUMIN/GLOBULIN RATIO 0.7 (1.1-1.5); ALKALINE PHOSPHATASE 89 IU/L (46-116); ANION GAP 7 (8-16); ASPARTATE AMINO TRANSFERASE 12 U/L (10-37); BASOPHILS # (AUTO) 0.1 X10'3 (0-0.2); BASOPHILS % (AUTO) 0.6 % (0-1); BILIRUBIN,TOTAL 0.3 MG/DL (0.1-1.0); BLOOD UREA NITROGEN 13 MG/DL (7-18); BUN/CREATININE RATIO 5.6 (10.0-20.0); CALCIUM 7.8 MG/DL (8.5-10.1); CHLORIDE 108 MMOL/L (99-107); CREATININE 2.32 MG/DL (0.60-1.10); EOSINOPHILS # (AUTO) 0.4 X10'3 (0-0.9); EOSINOPHILS % (AUTO) 2.8 % (0-6); GLUCOSE 85 MG/DL (70-104); HEMATOCRIT 31.8 % (42.0-52.0); HEMOGLOBIN 9.9 g/dl (14.0-17.9); LYMPHOCYTES % (AUTO) 7.3 % (21-51); MAGNESIUM 1.7 MG/DL (1.5-2.4); MEAN CORPUSCULAR HEMOGLOBIN 27.1 PG (27.0-31.0); MEAN CORPUSCULAR HGB CONC 31.2 g/dL (33.0-36.5); MEAN CORPUSCULAR VOLUME 86.9 FL (78-98); MEAN PLATELET VOLUME 7.5 FL (7.4-10.4); MONOCYTES # (AUTO) 0.9 X10'3 (0-0.9); MONOCYTES % (AUTO) 6.7 % (2-12); NEUTROPHILS # (AUTO) 11.7 X10'3 (1.8-7.7); NEUTROPHILS % (AUTO) 82.6 % (42-75); PLATELET COUNT 260 X10'3 (140-440); POTASSIUM 4.1 MMOL/L (3.5-5.1); RED BLOOD COUNT 3.66 X10'6 (4.70-6.10); RED CELL DISTRIBUTION WIDTH 24.8 % (11.5-14.5); SODIUM 141 MMOL/L (135-145); TOTAL CARBON DIOXIDE 25.9 MMOL/L (24-32); WHITE BLOOD COUNT 14.2 X10'3 (4.5-11.0); eCRCL 33 ML/MIN; eGFR 29 ML/MIN
[2023-10-23] MEDS: pantoprazole 40MG/NS 100ML BAG 100 ML IV SCH (07:22)
[2023-10-23] MEDS: docusate sod 100mg capsule PO SCH ×2 (07:23→21:15)
[2023-10-23] MEDS: furosemide 40mg tablet PO SCH (07:23)
[2023-10-23] MEDS: K and/or MAG REPLACEMENT MC SCH ×2 (08:00→20:00)
[2023-10-23 11:00] VITALS: BP 101/55; PULSE 88; RESP 19; TEMP 98.2; O2SAT 96
[2023-10-23] MEDS ORDERED: HYDROcodone/acetaminophen 5mg/325mg tablet PO ONE (11:15)
[2023-10-23 15:00] VITALS: BP 104/66; PULSE 85; RESP 18; TEMP 98.6; O2SAT 97
[2023-10-23] MEDS: HYDROcodone/acetaminophen 10/325mg tab PO PRN (16:21)
[2023-10-23 18:00] VITALS: BP 115/67; PULSE 92; RESP 16; TEMP 97.8; O2SAT 96
[2023-10-23] MEDS: phenazopyridine 100mg tablet PO SCH (18:00)
[2023-10-23 20:00] VITALS: RESP 18; O2SAT 94
[2023-10-23] MEDS: oxybutynin 5mg tablet PO SCH (21:15)
[2023-10-23 22:00] VITALS: BP 110/68; PULSE 68; RESP 16; TEMP 97.4; O2SAT 97
[2023-10-24] VITALS (8 sets, daily range): BP systolic 93–143; BP diastolic 54–82; PULSE 80–104; RESP 12–22; TEMP 97–98.5; O2SAT 95–97
[2023-10-24] MEDS: HYDROcodone/acetaminophen 10/325mg tab PO PRN (02:25)
[2023-10-24 06:34] LABS: BASOPHILS # (AUTO) 0.1 X10'3 (0-0.2); BASOPHILS % (AUTO) 0.7 % (0-1); EOSINOPHILS # (AUTO) 0.5 X10'3 (0-0.9); EOSINOPHILS % (AUTO) 3.1 % (0-6); HEMATOCRIT 32.3 % (42.0-52.0); HEMOGLOBIN 10.2 g/dl (14.0-17.9); LYMPHOCYTES # (AUTO) 1.1 X10'3 (1.1-4.8); LYMPHOCYTES % (AUTO) 7.1 % (21-51); MEAN CORPUSCULAR HEMOGLOBIN 27.4 PG (27.0-31.0); MEAN CORPUSCULAR HGB CONC 31.6 g/dL (33.0-36.5); MEAN CORPUSCULAR VOLUME 86.6 FL (78-98); MEAN PLATELET VOLUME 7.5 FL (7.4-10.4); MONOCYTES # (AUTO) 0.9 X10'3 (0-0.9); MONOCYTES % (AUTO) 5.8 % (2-12); NEUTROPHILS # (AUTO) 12.5 X10'3 (1.8-7.7); NEUTROPHILS % (AUTO) 83.3 % (42-75); PLATELET COUNT 277 X10'3 (140-440); RED BLOOD COUNT 3.73 X10'6 (4.70-6.10); RED CELL DISTRIBUTION WIDTH 25.2 % (11.5-14.5)
[2023-10-24 06:45] LABS: ALANINE AMINOTRANSFERASE 9 U/L (12-78); ALBUMIN 2.6 G/DL (3.4-5.0); ALBUMIN/GLOBULIN RATIO 0.8 (1.1-1.5); ALKALINE PHOSPHATASE 87 IU/L (46-116); ANION GAP 4 (8-16); ASPARTATE AMINO TRANSFERASE 9 U/L (10-37); BILIRUBIN,TOTAL 0.3 MG/DL (0.1-1.0); BLOOD UREA NITROGEN 13 MG/DL (7-18); BUN/CREATININE RATIO 5.9 (10.0-20.0); CHLORIDE 108 MMOL/L (99-107); GLUCOSE 86 MG/DL (70-104); MAGNESIUM 1.6 MG/DL (1.5-2.4); POTASSIUM 4.2 MMOL/L (3.5-5.1); SODIUM 140 MMOL/L (135-145); TOTAL CARBON DIOXIDE 27.6 MMOL/L (24-32); eCRCL 35 ML/MIN; eGFR 31 ML/MIN
[2023-10-24] MEDS: K and/or MAG REPLACEMENT MC SCH ×2 (07:13→20:00)
[2023-10-24] MEDS: ondansetron 4mg rapidly disintigrating tab PO PRN (07:54)
[2023-10-24] MEDS: pantoprazole 40mg Tablet.DR PO SCH (07:54)
[2023-10-24] MEDS: docusate sod 100mg capsule PO SCH ×2 (07:56→20:00)
[2023-10-24] MEDS: furosemide 40mg tablet PO SCH (08:00)
[2023-10-24] MEDS ORDERED: morphine 2 MG/ML inj. syringe IV PRN (09:30)
[2023-10-24] MEDS: oxybutynin 5mg tablet PO SCH ×3 (09:34→21:53)
[2023-10-24] MEDS: HYDROcodone/acetaminophen 5mg/325mg tablet PO PRN (09:34)
[2023-10-24] MEDS: phenazopyridine 100mg tablet PO SCH ×3 (10:27→21:52)
[2023-10-25] VITALS (8 sets, daily range): BP systolic 108–148; BP diastolic 61–84; PULSE 83–90; RESP 16–22; TEMP 97.6–98.3; O2SAT 94–98
[2023-10-25] MEDS: HYDROcodone/acetaminophen 5mg/325mg tablet PO PRN ×3 (00:23→13:14)
[2023-10-25] MEDS: pantoprazole 40mg Tablet.DR PO SCH (07:34)
[2023-10-25] MEDS: CefTRIAXone/D5W-Rocephin 1gm 50 ML IV SCH (07:35)
[2023-10-25] MEDS: phenazopyridine 100mg tablet PO SCH ×3 (07:36→20:27)
[2023-10-25] MEDS: vancomycin/NS 1 GM ADD-VANTAGE 250 ML IV SCH (07:36)
[2023-10-25] MEDS: oxybutynin 5mg tablet PO SCH ×3 (07:36→20:27)
[2023-10-25] MEDS: docusate sod 100mg capsule PO SCH ×2 (07:37→20:00)
[2023-10-25] MEDS: furosemide 40mg tablet PO SCH (07:40)
[2023-10-25] MEDS: K and/or MAG REPLACEMENT MC SCH ×2 (07:41→20:00)
[2023-10-25] MEDS ORDERED: vancomycin/NS 1 GM ADD-VANTAGE 250 ML IV SCH (08:00)
[2023-10-25] MEDS: multi-vitamin w/minerals & ferrous gluconate 9 MG/15 ML oral LIQUID PO SCH (08:00)
[2023-10-25 09:15] LABS: BASOPHILS # (AUTO) 0.1 X10'3 (0-0.2); BASOPHILS % (AUTO) 0.8 % (0-1); EOSINOPHILS # (AUTO) 0.5 X10'3 (0-0.9); EOSINOPHILS % (AUTO) 3.7 % (0-6); HEMATOCRIT 34.3 % (42.0-52.0); HEMOGLOBIN 10.5 g/dl (14.0-17.9); LYMPHOCYTES # (AUTO) 1.5 X10'3 (1.1-4.8); LYMPHOCYTES % (AUTO) 11.7 % (21-51); MEAN CORPUSCULAR HEMOGLOBIN 27.2 PG (27.0-31.0); MEAN CORPUSCULAR HGB CONC 30.8 g/dL (33.0-36.5); MEAN CORPUSCULAR VOLUME 88.3 FL (78-98); MEAN PLATELET VOLUME 7.6 FL (7.4-10.4); MONOCYTES # (AUTO) 0.6 X10'3 (0-0.9); MONOCYTES % (AUTO) 4.4 % (2-12); NEUTROPHILS # (AUTO) 9.9 X10'3 (1.8-7.7); NEUTROPHILS % (AUTO) 79.4 % (42-75); PLATELET COUNT 273 X10'3 (140-440); RED BLOOD COUNT 3.88 X10'6 (4.70-6.10); RED CELL DISTRIBUTION WIDTH 24.5 % (11.5-14.5); WHITE BLOOD COUNT 12.5 X10'3 (4.5-11.0)
[2023-10-25 09:30] LABS: ALANINE AMINOTRANSFERASE 11 U/L (12-78); ALBUMIN 2.7 G/DL (3.4-5.0); ALBUMIN/GLOBULIN RATIO 0.8 (1.1-1.5); ALKALINE PHOSPHATASE 94 IU/L (46-116); ANION GAP 4 (8-16); ASPARTATE AMINO TRANSFERASE 10 U/L (10-37); BILIRUBIN,TOTAL 0.3 MG/DL (0.1-1.0); BLOOD UREA NITROGEN 15 MG/DL (7-18); BUN/CREATININE RATIO 6.7 (10.0-20.0); CALCIUM 8.2 MG/DL (8.5-10.1); CHLORIDE 107 MMOL/L (99-107); CREATININE 2.23 MG/DL (0.60-1.10); GLUCOSE 131 MG/DL (70-104); POTASSIUM 4.3 MMOL/L (3.5-5.1); SODIUM 140 MMOL/L (135-145); TOTAL PROTEIN 6.2 G/DL (6.4-8.2); eCRCL 35 ML/MIN; eGFR 30 ML/MIN
[2023-10-25 10:43] LABS: ANISOCYTOSIS 3+; BURR CELLS FEW; ELLIPTOCYTES 2+; PLATELET ESTIMATE NORMAL; SCHISTOCYTES FEW
[2023-10-25 10:44] LABS: POIKILOCYTOSIS 2+
[2023-10-26] VITALS (8 sets, daily range): BP systolic 108–145; BP diastolic 64–80; PULSE 78–90; RESP 12–21; TEMP 97.6–98.2; O2SAT 94–98
[2023-10-26] MEDS: HYDROcodone/acetaminophen 10/325mg tab PO PRN (00:21)
[2023-10-26] MEDS: docusate sod 100mg capsule PO SCH ×2 (08:00→20:00)
[2023-10-26] MEDS: multi-vitamin w/minerals & ferrous gluconate 9 MG/15 ML oral LIQUID PO SCH (08:00)
[2023-10-26] MEDS: K and/or MAG REPLACEMENT MC SCH ×2 (08:00→20:00)
[2023-10-26] MEDS: furosemide 40mg tablet PO SCH (08:00)
[2023-10-26] MEDS: CefTRIAXone/D5W-Rocephin 1gm 50 ML IV SCH (08:03)
[2023-10-26] MEDS: pantoprazole 40mg Tablet.DR PO SCH (08:03)
[2023-10-26] MEDS: oxybutynin 5mg tablet PO SCH ×3 (08:03→20:30)
[2023-10-26] MEDS: phenazopyridine 100mg tablet PO SCH ×3 (08:03→19:01)
[2023-10-26] MEDS: vancomycin/NS 1 GM ADD-VANTAGE 250 ML IV SCH (08:04)
[2023-10-26] MEDS: HYDROcodone/acetaminophen 5mg/325mg tablet PO PRN ×2 (08:10→19:01)
[2023-10-26 11:38] LABS: ALANINE AMINOTRANSFERASE 10 U/L (12-78); ALBUMIN 2.6 G/DL (3.4-5.0); ALBUMIN/GLOBULIN RATIO 0.7 (1.1-1.5); ALKALINE PHOSPHATASE 100 IU/L (46-116); ANION GAP 6 (8-16); ASPARTATE AMINO TRANSFERASE 9 U/L (10-37); BILIRUBIN,TOTAL 0.2 MG/DL (0.1-1.0); BLOOD UREA NITROGEN 15 MG/DL (7-18); BUN/CREATININE RATIO 7.1 (10.0-20.0); CALCIUM 8.1 MG/DL (8.5-10.1); CHLORIDE 106 MMOL/L (99-107); CREATININE 2.11 MG/DL (0.60-1.10); GLUCOSE 94 MG/DL (70-104); POTASSIUM 3.9 MMOL/L (3.5-5.1); SODIUM 141 MMOL/L (135-145); TOTAL CARBON DIOXIDE 28.8 MMOL/L (24-32); TOTAL PROTEIN 6.2 G/DL (6.4-8.2); eCRCL 37 ML/MIN; eGFR 32 ML/MIN
[2023-10-26 11:44] LABS: HEMATOCRIT 35.2 % (42.0-52.0); HEMOGLOBIN 10.7 g/dl (14.0-17.9); MEAN CORPUSCULAR VOLUME 87.6 FL (78-98); WHITE BLOOD COUNT 17.3 X10'3 (4.5-11.0)
[2023-10-26 11:45] LABS: BASOPHILS # (AUTO) 0.1 X10'3 (0-0.2); BASOPHILS % (AUTO) 0.5 % (0-1); EOSINOPHILS # (AUTO) 0.6 X10'3 (0-0.9); EOSINOPHILS % (AUTO) 3.4 % (0-6); LYMPHOCYTES # (AUTO) 1.4 X10'3 (1.1-4.8); LYMPHOCYTES % (AUTO) 7.9 % (21-51); MEAN CORPUSCULAR HEMOGLOBIN 26.7 PG (27.0-31.0); MEAN CORPUSCULAR HGB CONC 30.5 g/dL (33.0-36.5); MEAN PLATELET VOLUME 7.5 FL (7.4-10.4); MONOCYTES # (AUTO) 0.9 X10'3 (0-0.9); MONOCYTES % (AUTO) 5.4 % (2-12); NEUTROPHILS # (AUTO) 14.3 X10'3 (1.8-7.7); NEUTROPHILS % (AUTO) 82.8 % (42-75); PLATELET COUNT 278 X10'3 (140-440); RED BLOOD COUNT 4.02 X10'6 (4.70-6.10); RED CELL DISTRIBUTION WIDTH 24.9 % (11.5-14.5)
[2023-10-26 13:41] LABS: ANISOCYTOSIS 3+; BURR CELLS 1+; ELLIPTOCYTES 1+; PLATELET ESTIMATE NORMAL; TOTAL CELLS COUNTED 100
[2023-10-26 13:43] LABS: POIKILOCYTOSIS 2+; SCHISTOCYTES FEW
[2023-10-26] MEDS: nystatin 15 GM powder TP SCH (20:29)
[2023-10-27] VITALS (7 sets, daily range): BP systolic 100–145; BP diastolic 68–80; PULSE 80–99; RESP 16–21; TEMP 97.6–98.8; O2SAT 96–100
[2023-10-27] MEDS: CefTRIAXone/D5W-Rocephin 1gm 50 ML IV SCH (07:32)
[2023-10-27] MEDS: oxybutynin 5mg tablet PO SCH ×3 (07:37→20:53)
[2023-10-27] MEDS: phenazopyridine 100mg tablet PO SCH ×3 (07:37→17:24)
[2023-10-27] MEDS: pantoprazole 40mg Tablet.DR PO SCH (07:37)
[2023-10-27] MEDS: HYDROcodone/acetaminophen 10/325mg tab PO PRN (07:38)
[2023-10-27] MEDS: docusate sod 100mg capsule PO SCH ×2 (07:42→20:00)
[2023-10-27] MEDS: multi-vitamin w/minerals & ferrous gluconate 9 MG/15 ML oral LIQUID PO SCH (07:42)
[2023-10-27] MEDS: K and/or MAG REPLACEMENT MC SCH ×2 (07:42→20:00)
[2023-10-27] MEDS: furosemide 40mg tablet PO SCH (07:42)
[2023-10-27] MEDS: nystatin 15 GM powder TP SCH ×2 (07:42→20:00)
[2023-10-27] MEDS: vancomycin/NS 1 GM ADD-VANTAGE 250 ML IV SCH (08:32)
[2023-10-28] MEDS: HYDROcodone/acetaminophen 10/325mg tab PO PRN ×3 (03:31→23:19)
[2023-10-28 06:00] VITALS: BP 106/68; PULSE 95; RESP 21; TEMP 97.9; O2SAT 100
[2023-10-28] MEDS ORDERED: VANCOMYCIN LEVEL IV ONE (07:30)
[2023-10-28 08:00] VITALS: RESP 16; O2SAT 97
[2023-10-28] MEDS: multi-vitamin w/minerals & ferrous gluconate 9 MG/15 ML oral LIQUID PO SCH (08:00)
[2023-10-28] MEDS: K and/or MAG REPLACEMENT MC SCH ×2 (08:00→20:00)
[2023-10-28] MEDS: furosemide 40mg tablet PO SCH (08:00)
[2023-10-28] MEDS: nystatin 15 GM powder TP SCH ×2 (08:00→19:15)
[2023-10-28] MEDS: docusate sod 100mg capsule PO SCH ×2 (08:00→19:15)
[2023-10-28] MEDS: phenazopyridine 100mg tablet PO SCH ×3 (08:25→19:14)
[2023-10-28] MEDS: oxybutynin 5mg tablet PO SCH ×3 (08:25→19:14)
[2023-10-28] MEDS: pantoprazole 40mg Tablet.DR PO SCH (08:25)
[2023-10-28] MEDS: CefTRIAXone/D5W-Rocephin 1gm 50 ML IV SCH (08:30)
[2023-10-28] MEDS: VANCOMYCIN 750MG IV in NS 250 ML IV SCH (10:00)
[2023-10-28 15:00] VITALS: BP 102/64; PULSE 94; RESP 18; TEMP 98.6; O2SAT 96
[2023-10-28] MEDS: metoprolol succinate 25mg (24-HOUR) SR. Tablet PO SCH (15:20)
[2023-10-28] MEDS: cefepime 2g/NS 100ml ADVANTAGE 100 ML IV SCH (15:20)
[2023-10-29] VITALS: BP 94/64; PULSE 86; RESP 16; TEMP 99.2; O2SAT 97
[2023-10-29 08:00] VITALS: RESP 23; O2SAT 97
[2023-10-29] MEDS: multi-vitamin w/minerals & ferrous gluconate 9 MG/15 ML oral LIQUID PO SCH (08:00)
[2023-10-29] MEDS: metoprolol succinate 25mg (24-HOUR) SR. Tablet PO SCH (08:00)
[2023-10-29] MEDS: K and/or MAG REPLACEMENT MC SCH ×2 (08:00→20:00)
[2023-10-29] MEDS: nystatin 15 GM powder TP SCH ×2 (08:00→19:13)
[2023-10-29] MEDS: docusate sod 100mg capsule PO SCH ×2 (08:00→19:13)
[2023-10-29] MEDS: furosemide 40mg tablet PO SCH (08:00)
[2023-10-29] MEDS: phenazopyridine 100mg tablet PO SCH ×3 (08:05→18:04)
[2023-10-29] MEDS: oxybutynin 5mg tablet PO SCH ×3 (08:06→19:12)
[2023-10-29] MEDS: pantoprazole 40mg Tablet.DR PO SCH (08:06)
[2023-10-29] MEDS: cefepime 2g/NS 100ml ADVANTAGE 100 ML IV SCH (09:02)
[2023-10-29 09:35] LABS: BASOPHILS # (AUTO) 0.2 X10'3 (0-0.2); EOSINOPHILS # (AUTO) 0.6 X10'3 (0-0.9); EOSINOPHILS % (AUTO) 3.9 % (0-6); LYMPHOCYTES # (AUTO) 1.4 X10'3 (1.1-4.8); LYMPHOCYTES % (AUTO) 8.7 % (21-51); MEAN PLATELET VOLUME 7.5 FL (7.4-10.4); MONOCYTES % (AUTO) 6.2 % (2-12); NEUTROPHILS # (AUTO) 13.1 X10'3 (1.8-7.7); NEUTROPHILS % (AUTO) 80.2 % (42-75); PLATELET COUNT 287 X10'3 (140-440); RED CELL DISTRIBUTION WIDTH 23.8 % (11.5-14.5)
[2023-10-29 09:49] LABS: ALANINE AMINOTRANSFERASE 12 U/L (12-78); ALBUMIN 2.8 G/DL (3.4-5.0); ALBUMIN/GLOBULIN RATIO 0.7 (1.1-1.5); ALKALINE PHOSPHATASE 104 IU/L (46-116); ANION GAP 4 (8-16); ASPARTATE AMINO TRANSFERASE 11 U/L (10-37); BILIRUBIN,TOTAL 0.3 MG/DL (0.1-1.0); BLOOD UREA NITROGEN 17 MG/DL (7-18); BUN/CREATININE RATIO 8.9 (10.0-20.0); CALCIUM 8.2 MG/DL (8.5-10.1); CHLORIDE 105 MMOL/L (99-107); GLUCOSE 93 MG/DL (70-104); POTASSIUM 4.1 MMOL/L (3.5-5.1); SODIUM 139 MMOL/L (135-145); TOTAL CARBON DIOXIDE 30.4 MMOL/L (24-32); TOTAL PROTEIN 6.6 G/DL (6.4-8.2); eCRCL 41 ML/MIN; eGFR 36 ML/MIN
[2023-10-29 10:21] LABS: HEMATOCRIT 37.2 % (42.0-52.0); HEMOGLOBIN 11.9 g/dl (14.0-17.9); MEAN CORPUSCULAR HEMOGLOBIN 27.4 PG (27.0-31.0); MEAN CORPUSCULAR VOLUME 85.6 FL (78-98); RED BLOOD COUNT 4.34 X10'6 (4.70-6.10)
[2023-10-29 11:00] VITALS: BP 100/65; PULSE 82; RESP 23; TEMP 99.8; O2SAT 97
[2023-10-29] MEDS: VANCOMYCIN 750MG IV in NS 250 ML IV SCH (11:49)
[2023-10-29 18:00] VITALS: BP 103/66; PULSE 81; RESP 20; TEMP 98.8; O2SAT 96
[2023-10-29 20:00] VITALS: RESP 20; O2SAT 96
[2023-10-29 22:00] VITALS: BP 105/70; PULSE 95; RESP 17; TEMP 97.9; O2SAT 96
[2023-10-30] VITALS (7 sets, daily range): BP systolic 99–116; BP diastolic 69–80; PULSE 70–100; RESP 15–26; TEMP 97.6–99.1; O2SAT 96–98
[2023-10-30] MEDS: HYDROcodone/acetaminophen 5mg/325mg tablet PO PRN ×2 (01:26→15:32)
[2023-10-30 07:25] LABS: ALANINE AMINOTRANSFERASE 7 U/L (12-78); ALBUMIN 2.8 G/DL (3.4-5.0); ALBUMIN/GLOBULIN RATIO 0.7 (1.1-1.5); ALKALINE PHOSPHATASE 104 IU/L (46-116); ANION GAP 3 (8-16); ASPARTATE AMINO TRANSFERASE 11 U/L (10-37); BILIRUBIN,TOTAL 0.3 MG/DL (0.1-1.0); BLOOD UREA NITROGEN 18 MG/DL (7-18); BUN/CREATININE RATIO 8.9 (10.0-20.0); CALCIUM 8.4 MG/DL (8.5-10.1); CHLORIDE 106 MMOL/L (99-107); CREATININE 2.02 MG/DL (0.60-1.10); GLUCOSE 94 MG/DL (70-104); POTASSIUM 4.5 MMOL/L (3.5-5.1); SODIUM 138 MMOL/L (135-145); TOTAL CARBON DIOXIDE 28.9 MMOL/L (24-32); TOTAL PROTEIN 6.6 G/DL (6.4-8.2); eCRCL 38 ML/MIN; eGFR 34 ML/MIN
[2023-10-30] MEDS: multi-vitamin w/minerals & ferrous gluconate 9 MG/15 ML oral LIQUID PO SCH (08:00)
[2023-10-30] MEDS: furosemide 40mg tablet PO SCH (08:00)
[2023-10-30] MEDS: K and/or MAG REPLACEMENT MC SCH ×2 (08:00→20:00)
[2023-10-30] MEDS: docusate sod 100mg capsule PO SCH ×2 (08:00→20:00)
[2023-10-30] MEDS: nystatin 15 GM powder TP SCH ×2 (08:00→20:00)
[2023-10-30] MEDS: metoprolol succinate 25mg (24-HOUR) SR. Tablet PO SCH (08:56)
[2023-10-30] MEDS: phenazopyridine 100mg tablet PO SCH ×3 (08:56→21:49)
[2023-10-30] MEDS: pantoprazole 40mg Tablet.DR PO SCH (08:56)
[2023-10-30] MEDS: oxybutynin 5mg tablet PO SCH ×3 (08:57→21:49)
[2023-10-30] MEDS: cefepime 2g/NS 100ml ADVANTAGE 100 ML IV SCH (10:15)
[2023-10-30] MEDS: VANCOMYCIN 750MG IV in NS 250 ML IV SCH (10:16)
[2023-10-30] MEDS ORDERED: MULTIVIT-MIN/FERROUS GLUCONATE 9 MG/15 ML LIQUID PO SCH (10:21)
[2023-10-31] VITALS (7 sets, daily range): BP systolic 97–113; BP diastolic 66–84; PULSE 70–97; RESP 14–22; TEMP 97.6–98.1; O2SAT 94–97
[2023-10-31] MEDS: pantoprazole 40mg Tablet.DR PO SCH (06:52)
[2023-10-31] MEDS: HYDROcodone/acetaminophen 10/325mg tab PO PRN ×2 (06:53→15:59)
[2023-10-31] MEDS: cefepime 2g/NS 100ml ADVANTAGE 100 ML IV SCH (07:31)
[2023-10-31] MEDS: K and/or MAG REPLACEMENT MC SCH ×2 (08:00→19:59)
[2023-10-31] MEDS: furosemide 40mg tablet PO SCH (08:00)
[2023-10-31] MEDS: nystatin 15 GM powder TP SCH ×2 (08:00→20:00)
[2023-10-31] MEDS: docusate sod 100mg capsule PO SCH ×2 (08:00→19:59)
[2023-10-31] MEDS: oxybutynin 5mg tablet PO SCH ×3 (08:49→22:19)
[2023-10-31] MEDS: phenazopyridine 100mg tablet PO SCH ×3 (08:50→19:59)
[2023-10-31] MEDS: metoprolol succinate 25mg (24-HOUR) SR. Tablet PO SCH (08:50)
[2023-10-31] MEDS: multivitamins, therapeutics tablet PO SCH (08:50)
[2023-10-31] MEDS ORDERED: VANCOMYCIN LEVEL IV ONE (09:30)
[2023-10-31 10:17] LABS: BASOPHILS # (AUTO) 0.2 X10'3 (0-0.2); BASOPHILS % (AUTO) 1.1 % (0-1); EOSINOPHILS # (AUTO) 0.6 X10'3 (0-0.9); EOSINOPHILS % (AUTO) 3.6 % (0-6); HEMATOCRIT 36.7 % (42.0-52.0); HEMOGLOBIN 11.4 g/dl (14.0-17.9); LYMPHOCYTES # (AUTO) 1.2 X10'3 (1.1-4.8); LYMPHOCYTES % (AUTO) 7.5 % (21-51); MEAN CORPUSCULAR HEMOGLOBIN 27.1 PG (27.0-31.0); MEAN CORPUSCULAR HGB CONC 31.1 g/dL (33.0-36.5); MEAN CORPUSCULAR VOLUME 87.2 FL (78-98); MEAN PLATELET VOLUME 7.5 FL (7.4-10.4); MONOCYTES % (AUTO) 6.1 % (2-12); NEUTROPHILS # (AUTO) 13.6 X10'3 (1.8-7.7); NEUTROPHILS % (AUTO) 81.7 % (42-75); PLATELET COUNT 265 X10'3 (140-440); RED BLOOD COUNT 4.21 X10'6 (4.70-6.10); RED CELL DISTRIBUTION WIDTH 23.6 % (11.5-14.5); WHITE BLOOD COUNT 16.6 X10'3 (4.5-11.0)
[2023-10-31] MEDS: VANCOMYCIN 750MG IV in NS 250 ML IV SCH (10:23)
[2023-10-31 10:31] LABS: ALANINE AMINOTRANSFERASE 13 U/L (12-78); ALBUMIN 2.7 G/DL (3.4-5.0); ALBUMIN/GLOBULIN RATIO 0.7 (1.1-1.5); ALKALINE PHOSPHATASE 112 IU/L (46-116); ANION GAP 6 (8-16); ASPARTATE AMINO TRANSFERASE 11 U/L (10-37); BILIRUBIN,TOTAL 0.4 MG/DL (0.1-1.0); BLOOD UREA NITROGEN 21 MG/DL (7-18); BUN/CREATININE RATIO 10.9 (10.0-20.0); CALCIUM 8.4 MG/DL (8.5-10.1); CHLORIDE 105 MMOL/L (99-107); CREATININE 1.93 MG/DL (0.60-1.10); GLUCOSE 116 MG/DL (70-104); POTASSIUM 4.4 MMOL/L (3.5-5.1); SODIUM 137 MMOL/L (135-145); TOTAL PROTEIN 6.5 G/DL (6.4-8.2); eCRCL 40 ML/MIN; eGFR 36 ML/MIN
[2023-10-31 18:05] LABS: ANISOCYTOSIS 3+; PLATELET ESTIMATE NORMAL; TOTAL CELLS COUNTED 100
[2023-10-31 18:07] LABS: ELLIPTOCYTES 1+
[2023-10-31 18:08] LABS: BURR CELLS FEW; SCHISTOCYTES FEW
[2023-11-01] VITALS (8 sets, daily range): BP systolic 96–114; BP diastolic 64–80; PULSE 74–95; RESP 16–20; TEMP 97.6–98.6; O2SAT 92–96
[2023-11-01] MEDS: HYDROcodone/acetaminophen 10/325mg tab PO PRN (03:24)
[2023-11-01] MEDS: metoprolol succinate 25mg (24-HOUR) SR. Tablet PO SCH (08:00)
[2023-11-01] MEDS: furosemide 40mg tablet PO SCH (08:00)
[2023-11-01 08:06] LABS: BASOPHILS # (AUTO) 0.2 X10'3 (0-0.2); BASOPHILS % (AUTO) 1.1 % (0-1); EOSINOPHILS # (AUTO) 0.6 X10'3 (0-0.9); HEMATOCRIT 37.4 % (42.0-52.0); HEMOGLOBIN 11.7 g/dl (14.0-17.9); LYMPHOCYTES # (AUTO) 1.6 X10'3 (1.1-4.8); LYMPHOCYTES % (AUTO) 10.8 % (21-51); MEAN CORPUSCULAR HEMOGLOBIN 27.4 PG (27.0-31.0); MEAN CORPUSCULAR HGB CONC 31.2 g/dL (33.0-36.5); MEAN PLATELET VOLUME 7.4 FL (7.4-10.4); MONOCYTES % (AUTO) 6.3 % (2-12); NEUTROPHILS # (AUTO) 11.9 X10'3 (1.8-7.7); NEUTROPHILS % (AUTO) 77.8 % (42-75); PLATELET COUNT 292 X10'3 (140-440); RED BLOOD COUNT 4.25 X10'6 (4.70-6.10); RED CELL DISTRIBUTION WIDTH 23.2 % (11.5-14.5); WHITE BLOOD COUNT 15.3 X10'3 (4.5-11.0)
[2023-11-01 08:32] LABS: ALANINE AMINOTRANSFERASE 15 U/L (12-78); ALBUMIN 2.8 G/DL (3.4-5.0); ALBUMIN/GLOBULIN RATIO 0.7 (1.1-1.5); ALKALINE PHOSPHATASE 110 IU/L (46-116); ANION GAP 5 (8-16); ASPARTATE AMINO TRANSFERASE 13 U/L (10-37); BILIRUBIN,TOTAL 0.4 MG/DL (0.1-1.0); BLOOD UREA NITROGEN 23 MG/DL (7-18); BUN/CREATININE RATIO 10.8 (10.0-20.0); CALCIUM 8.5 MG/DL (8.5-10.1); CHLORIDE 106 MMOL/L (99-107); CREATININE 2.12 MG/DL (0.60-1.10); GLUCOSE 96 MG/DL (70-104); POTASSIUM 4.9 MMOL/L (3.5-5.1); SODIUM 139 MMOL/L (135-145); TOTAL CARBON DIOXIDE 28.4 MMOL/L (24-32); TOTAL PROTEIN 6.7 G/DL (6.4-8.2); eCRCL 37 ML/MIN; eGFR 32 ML/MIN
[2023-11-01 09:03] LABS: ANISOCYTOSIS 3+; PLATELET ESTIMATE NORMAL; TOTAL CELLS COUNTED 100
[2023-11-01 09:04] LABS: ELLIPTOCYTES 1+; HYPOCHROMASIA 1+; NUCLEATED RED BLOOD CELLS 1 /100WBC (0-0); SCHISTOCYTES FEW
[2023-11-01] MEDS: oxybutynin 5mg tablet PO SCH ×3 (09:11→20:31)
[2023-11-01] MEDS: phenazopyridine 100mg tablet PO SCH ×3 (09:11→18:11)
[2023-11-01] MEDS: cefepime 2g/NS 100ml ADVANTAGE 100 ML IV SCH (09:11)
[2023-11-01] MEDS: pantoprazole 40mg Tablet.DR PO SCH (09:11)
[2023-11-01] MEDS: multivitamins, therapeutics tablet PO SCH (09:11)
[2023-11-01] MEDS: nystatin 15 GM powder TP SCH ×2 (09:13→20:00)
[2023-11-01 09:52] LABS: MAGNESIUM 1.6 MG/DL (1.5-2.4); PHOSPHORUS 3.2 MG/DL (2.3-4.5)
[2023-11-01] MEDS: K and/or MAG REPLACEMENT MC SCH ×2 (10:35→20:36)
[2023-11-01] MEDS: vancomycin inj 500 MG in normal saline 100ml IV soln 100 ML IV SCH (11:58)
[2023-11-01] MEDS: nystatin 500,000 unit/5ML UD oral suspension PO SCH ×2 (13:36→20:31)
[2023-11-02] VITALS (8 sets, daily range): BP systolic 95–114; BP diastolic 62–87; PULSE 89–101; RESP 16–22; TEMP 97.3–98.6; O2SAT 95–97
[2023-11-02 07:05] LABS: ALANINE AMINOTRANSFERASE 16 U/L (12-78); ALBUMIN 2.9 G/DL (3.4-5.0); ALBUMIN/GLOBULIN RATIO 0.7 (1.1-1.5); ALKALINE PHOSPHATASE 118 IU/L (46-116); ANION GAP 8 (8-16); ASPARTATE AMINO TRANSFERASE 14 U/L (10-37); BILIRUBIN,TOTAL 0.4 MG/DL (0.1-1.0); BLOOD UREA NITROGEN 23 MG/DL (7-18); CALCIUM 8.7 MG/DL (8.5-10.1); CHLORIDE 104 MMOL/L (99-107); CREATININE 2.09 MG/DL (0.60-1.10); GLUCOSE 116 MG/DL (70-104); MAGNESIUM 1.6 MG/DL (1.5-2.4); PHOSPHORUS 2.6 MG/DL (2.3-4.5); POTASSIUM 4.5 MMOL/L (3.5-5.1); SODIUM 138 MMOL/L (135-145); TOTAL CARBON DIOXIDE 26.1 MMOL/L (24-32); TOTAL PROTEIN 6.9 G/DL (6.4-8.2); eCRCL 37 ML/MIN; eGFR 32 ML/MIN
[2023-11-02] MEDS: K and/or MAG REPLACEMENT MC SCH ×2 (08:00→19:49)
[2023-11-02] MEDS: nystatin 15 GM powder TP SCH ×2 (08:00→19:50)
[2023-11-02] MEDS: metoprolol succinate 25mg (24-HOUR) SR. Tablet PO SCH (09:13)
[2023-11-02] MEDS: phenazopyridine 100mg tablet PO SCH ×3 (09:13→18:01)
[2023-11-02] MEDS: cefepime 2g/NS 100ml ADVANTAGE 100 ML IV SCH (09:13)
[2023-11-02] MEDS: multivitamins, therapeutics tablet PO SCH (09:13)
[2023-11-02] MEDS: nystatin 500,000 unit/5ML UD oral suspension PO SCH ×3 (09:13→22:32)
[2023-11-02] MEDS: pantoprazole 40mg Tablet.DR PO SCH (09:13)
[2023-11-02] MEDS: oxybutynin 5mg tablet PO SCH ×4 (09:14→22:31)
[2023-11-02] MEDS: furosemide 40mg tablet PO SCH (09:14)
[2023-11-02 09:29] LABS: PRO BRAIN NATRIURETIC PEPTIDE 880 PG/ML (0-125)
[2023-11-02 09:57] LABS: BASOPHILS # (AUTO) 0.2 X10'3 (0-0.2); BASOPHILS % (AUTO) 1.1 % (0-1); EOSINOPHILS # (AUTO) 0.6 X10'3 (0-0.9); EOSINOPHILS % (AUTO) 3.3 % (0-6); HEMATOCRIT 38.3 % (42.0-52.0); HEMOGLOBIN 11.9 g/dl (14.0-17.9); LYMPHOCYTES # (AUTO) 1.4 X10'3 (1.1-4.8); MEAN CORPUSCULAR HEMOGLOBIN 27.2 PG (27.0-31.0); MEAN CORPUSCULAR HGB CONC 31.2 g/dL (33.0-36.5); MEAN CORPUSCULAR VOLUME 87.1 FL (78-98); MEAN PLATELET VOLUME 7.6 FL (7.4-10.4); MONOCYTES # (AUTO) 0.9 X10'3 (0-0.9); NEUTROPHILS # (AUTO) 14.6 X10'3 (1.8-7.7); NEUTROPHILS % (AUTO) 82.6 % (42-75); PLATELET COUNT 304 X10'3 (140-440); RED CELL DISTRIBUTION WIDTH 23.3 % (11.5-14.5); WHITE BLOOD COUNT 17.6 X10'3 (4.5-11.0)
[2023-11-02 10:20] LABS: ANISOCYTOSIS 3+; PLATELET ESTIMATE NORMAL; TOTAL CELLS COUNTED 100
[2023-11-02 10:21] LABS: ELLIPTOCYTES FEW; POIKILOCYTOSIS FEW; TEAR DROP CELLS FEW
[2023-11-02] MEDS: vancomycin inj 500 MG in normal saline 100ml IV soln 100 ML IV SCH (11:49)
[2023-11-02] MEDS: HYDROcodone/acetaminophen 10/325mg tab PO PRN (12:08)
[2023-11-03] VITALS (8 sets, daily range): BP systolic 90–108; BP diastolic 60–73; PULSE 82–99; RESP 15–24; TEMP 98.5–99.3; O2SAT 94–97
[2023-11-03] MEDS: HYDROcodone/acetaminophen 5mg/325mg tablet PO PRN (02:07)
[2023-11-03 06:28] LABS: BASOPHILS # (AUTO) 0.2 X10'3 (0-0.2); EOSINOPHILS # (AUTO) 0.5 X10'3 (0-0.9); EOSINOPHILS % (AUTO) 2.4 % (0-6); HEMOGLOBIN 12.5 g/dl (14.0-17.9); LYMPHOCYTES # (AUTO) 1.8 X10'3 (1.1-4.8); MEAN CORPUSCULAR HEMOGLOBIN 27.2 PG (27.0-31.0); MEAN CORPUSCULAR HGB CONC 31.3 g/dL (33.0-36.5); MEAN CORPUSCULAR VOLUME 87.1 FL (78-98); MEAN PLATELET VOLUME 7.6 FL (7.4-10.4); MONOCYTES # (AUTO) 1.4 X10'3 (0-0.9); MONOCYTES % (AUTO) 6.5 % (2-12); NEUTROPHILS # (AUTO) 18.2 X10'3 (1.8-7.7); NEUTROPHILS % (AUTO) 82.1 % (42-75); PLATELET COUNT 341 X10'3 (140-440); RED BLOOD COUNT 4.59 X10'6 (4.70-6.10); RED CELL DISTRIBUTION WIDTH 22.9 % (11.5-14.5); WHITE BLOOD COUNT 22.2 X10'3 (4.5-11.0)
[2023-11-03 06:50] LABS: ALANINE AMINOTRANSFERASE 24 U/L (12-78); ALBUMIN 3.1 G/DL (3.4-5.0); ALBUMIN/GLOBULIN RATIO 0.8 (1.1-1.5); ALKALINE PHOSPHATASE 131 IU/L (46-116); ANION GAP 9 (8-16); ASPARTATE AMINO TRANSFERASE 17 U/L (10-37); BILIRUBIN,TOTAL 0.4 MG/DL (0.1-1.0); BLOOD UREA NITROGEN 28 MG/DL (7-18); BUN/CREATININE RATIO 11.8 (10.0-20.0); CALCIUM 8.4 MG/DL (8.5-10.1); CHLORIDE 101 MMOL/L (99-107); CREATININE 2.37 MG/DL (0.60-1.10); GLUCOSE 110 MG/DL (70-104); MAGNESIUM 1.5 MG/DL (1.5-2.4); PHOSPHORUS 2.9 MG/DL (2.3-4.5); POTASSIUM 4.1 MMOL/L (3.5-5.1); SODIUM 136 MMOL/L (135-145); TOTAL CARBON DIOXIDE 26.5 MMOL/L (24-32); TOTAL PROTEIN 7.2 G/DL (6.4-8.2); eCRCL 33 ML/MIN; eGFR 28 ML/MIN
[2023-11-03] MEDS: furosemide 40mg tablet PO SCH (08:00)
[2023-11-03] MEDS: nystatin 15 GM powder TP SCH ×2 (08:00→19:49)
[2023-11-03] MEDS: K and/or MAG REPLACEMENT MC SCH ×2 (08:00→20:00)
[2023-11-03] MEDS: cefepime 2g/NS 100ml ADVANTAGE 100 ML IV SCH (08:11)
[2023-11-03] MEDS: phenazopyridine 100mg tablet PO SCH (08:12)
[2023-11-03] MEDS: nystatin 500,000 unit/5ML UD oral suspension PO SCH ×3 (08:12→19:49)
[2023-11-03] MEDS: pantoprazole 40mg Tablet.DR PO SCH (08:12)
[2023-11-03] MEDS: metoprolol succinate 25mg (24-HOUR) SR. Tablet PO SCH (08:13)
[2023-11-03] MEDS: oxybutynin 5mg tablet PO SCH ×4 (08:13→19:49)
[2023-11-03] MEDS: multivitamins, therapeutics tablet PO SCH (08:15)
[2023-11-03 09:13] LABS: ANISOCYTOSIS 3+; PLATELET ESTIMATE NORMAL; TOTAL CELLS COUNTED 100
[2023-11-03 09:14] LABS: BURR CELLS 1+
[2023-11-03] MEDS: vancomycin inj 500 MG in normal saline 100ml IV soln 100 ML IV SCH (10:21)
[2023-11-03] MEDS: normal saline 1000ml 1,000 ML IV SCH (13:41)
[2023-11-03] MEDS: HYDROcodone/acetaminophen 10/325mg tab PO PRN ×2 (17:27→23:00)
[2023-11-04] VITALS (7 sets, daily range): BP systolic 94–134; BP diastolic 62–79; PULSE 82–96; RESP 14–22; TEMP 97.9–98.8; O2SAT 90–99
[2023-11-04] MEDS: normal saline 1000ml 1,000 ML IV SCH ×2 (05:57→17:43)
[2023-11-04] MEDS: K and/or MAG REPLACEMENT MC SCH ×2 (07:08→20:00)
[2023-11-04] MEDS: multivitamins, therapeutics tablet PO SCH (08:35)
[2023-11-04] MEDS: cefepime 2g/NS 100ml ADVANTAGE 100 ML IV SCH (08:36)
[2023-11-04] MEDS: oxybutynin 5mg tablet PO SCH ×4 (08:36→19:08)
[2023-11-04] MEDS: metoprolol succinate 25mg (24-HOUR) SR. Tablet PO SCH (08:36)
[2023-11-04] MEDS: pantoprazole 40mg Tablet.DR PO SCH (08:36)
[2023-11-04] MEDS: nystatin 15 GM powder TP SCH ×2 (08:37→13:54)
[2023-11-04] MEDS: nystatin 500,000 unit/5ML UD oral suspension PO SCH ×3 (08:49→19:09)
[2023-11-04] MEDS ORDERED: VANCOMYCIN LEVEL IV ONE (09:30)
[2023-11-04] MEDS: vancomycin inj 500 MG in normal saline 100ml IV soln 100 ML IV SCH (10:00)
[2023-11-04 11:02] LABS: BASOPHILS # (AUTO) 0.3 X10'3 (0-0.2); EOSINOPHILS # (AUTO) 0.6 X10'3 (0-0.9); EOSINOPHILS % (AUTO) 3.1 % (0-6); HEMATOCRIT 36.6 % (42.0-52.0); HEMOGLOBIN 11.7 g/dl (14.0-17.9); LYMPHOCYTES # (AUTO) 1.9 X10'3 (1.1-4.8); LYMPHOCYTES % (AUTO) 10.8 % (21-51); MEAN CORPUSCULAR HEMOGLOBIN 27.7 PG (27.0-31.0); MEAN CORPUSCULAR HGB CONC 31.9 g/dL (33.0-36.5); MEAN CORPUSCULAR VOLUME 86.8 FL (78-98); MEAN PLATELET VOLUME 7.4 FL (7.4-10.4); MONOCYTES # (AUTO) 1.1 X10'3 (0-0.9); MONOCYTES % (AUTO) 5.9 % (2-12); NEUTROPHILS % (AUTO) 78.2 % (42-75); PLATELET COUNT 312 X10'3 (140-440); RED BLOOD COUNT 4.21 X10'6 (4.70-6.10); RED CELL DISTRIBUTION WIDTH 22.9 % (11.5-14.5); WHITE BLOOD COUNT 17.9 X10'3 (4.5-11.0)
[2023-11-04] MEDS ORDERED: LORazepam 2 mg/ml vial IV PRN (11:25)
[2023-11-04] MEDS ORDERED: LidoCAINE 2% Topical Jelly 11mL syringe TOP ONE (11:25)
[2023-11-04 11:49] LABS: ANISOCYTOSIS 3+; BURR CELLS 1+; ELLIPTOCYTES FEW; PLATELET ESTIMATE NORMAL; SCHISTOCYTES FEW; TOTAL CELLS COUNTED 100
[2023-11-04 12:24] LABS: ALANINE AMINOTRANSFERASE 21 U/L (12-78); ALBUMIN 2.9 G/DL (3.4-5.0); ALBUMIN/GLOBULIN RATIO 0.8 (1.1-1.5); ALKALINE PHOSPHATASE 125 IU/L (46-116); ANION GAP 7 (8-16); ASPARTATE AMINO TRANSFERASE 15 U/L (10-37); BILIRUBIN,TOTAL 0.4 MG/DL (0.1-1.0); BLOOD UREA NITROGEN 33 MG/DL (7-18); BUN/CREATININE RATIO 13.8 (10.0-20.0); C-REACTIVE PROTEIN 0.37 MG/DL (0.0-0.5); CALCIUM 8.1 MG/DL (8.5-10.1); CHLORIDE 103 MMOL/L (99-107); CREATININE 2.39 MG/DL (0.60-1.10); GLUCOSE 125 MG/DL (70-104); MAGNESIUM 1.4 MG/DL (1.5-2.4); PHOSPHORUS 2.9 MG/DL (2.3-4.5); POTASSIUM 4.3 MMOL/L (3.5-5.1); SODIUM 135 MMOL/L (135-145); TOTAL CARBON DIOXIDE 25.3 MMOL/L (24-32); TOTAL PROTEIN 6.7 G/DL (6.4-8.2); eCRCL 32 ML/MIN; eGFR 28 ML/MIN
[2023-11-04] MEDS: HYDROcodone/acetaminophen 5mg/325mg tablet PO PRN (13:53)
[2023-11-04] MEDS: LORazepam 1 MG tablet PO PRN (13:53)
[2023-11-05 01:00] VITALS: BP 94/63; PULSE 81; RESP 16; TEMP 98.1; O2SAT 97
[2023-11-05] MEDS: HYDROcodone/acetaminophen 5mg/325mg tablet PO PRN ×2 (03:41→21:12)
[2023-11-05 07:00] VITALS: BP 93/58; PULSE 88; RESP 18; TEMP 98.6; O2SAT 95
[2023-11-05 07:19] LABS: BASOPHILS # (AUTO) 0.2 X10'3 (0-0.2); BASOPHILS % (AUTO) 1.5 % (0-1); EOSINOPHILS # (AUTO) 0.5 X10'3 (0-0.9); EOSINOPHILS % (AUTO) 3.1 % (0-6); HEMOGLOBIN 10.9 g/dl (14.0-17.9); LYMPHOCYTES # (AUTO) 1.4 X10'3 (1.1-4.8); LYMPHOCYTES % (AUTO) 8.5 % (21-51); MEAN CORPUSCULAR HEMOGLOBIN 27.2 PG (27.0-31.0); MEAN CORPUSCULAR HGB CONC 31.2 g/dL (33.0-36.5); MEAN CORPUSCULAR VOLUME 87.3 FL (78-98); MEAN PLATELET VOLUME 7.4 FL (7.4-10.4); MONOCYTES # (AUTO) 0.8 X10'3 (0-0.9); NEUTROPHILS # (AUTO) 13.9 X10'3 (1.8-7.7); NEUTROPHILS % (AUTO) 81.9 % (42-75); PLATELET COUNT 297 X10'3 (140-440); RED CELL DISTRIBUTION WIDTH 22.9 % (11.5-14.5)
[2023-11-05] MEDS: cefepime 2g/NS 100ml ADVANTAGE 100 ML IV SCH (07:23)
[2023-11-05 07:46] LABS: ALANINE AMINOTRANSFERASE 19 U/L (12-78); ALBUMIN 2.7 G/DL (3.4-5.0); ALBUMIN/GLOBULIN RATIO 0.8 (1.1-1.5); ALKALINE PHOSPHATASE 114 IU/L (46-116); ANION GAP 6 (8-16); ASPARTATE AMINO TRANSFERASE 16 U/L (10-37); BILIRUBIN,TOTAL 0.3 MG/DL (0.1-1.0); BLOOD UREA NITROGEN 35 MG/DL (7-18); BUN/CREATININE RATIO 15.1 (10.0-20.0); CALCIUM 8.1 MG/DL (8.5-10.1); CHLORIDE 107 MMOL/L (99-107); CREATININE 2.32 MG/DL (0.60-1.10); GLUCOSE 113 MG/DL (70-104); MAGNESIUM 1.5 MG/DL (1.5-2.4); POTASSIUM 4.5 MMOL/L (3.5-5.1); SODIUM 138 MMOL/L (135-145); TOTAL CARBON DIOXIDE 24.7 MMOL/L (24-32); TOTAL PROTEIN 6.3 G/DL (6.4-8.2); eCRCL 33 ML/MIN; eGFR 29 ML/MIN
[2023-11-05] MEDS: normal saline 1000ml 1,000 ML IV SCH (07:49)
[2023-11-05] MEDS: K and/or MAG REPLACEMENT MC SCH ×2 (08:00→20:00)
[2023-11-05] MEDS: nystatin 15 GM powder TP SCH (08:00)
[2023-11-05] MEDS: multivitamins, therapeutics tablet PO SCH (08:26)
[2023-11-05] MEDS: nystatin 500,000 unit/5ML UD oral suspension PO SCH ×3 (08:26→19:20)
[2023-11-05] MEDS: pantoprazole 40mg Tablet.DR PO SCH (08:26)
[2023-11-05] MEDS: oxybutynin 5mg tablet PO SCH ×4 (08:26→19:12)
[2023-11-05] MEDS: metoprolol succinate 25mg (24-HOUR) SR. Tablet PO SCH (08:26)
[2023-11-05 09:00] LABS: ANISOCYTOSIS 3+; PLATELET ESTIMATE NORMAL; POIKILOCYTOSIS 2+; TOTAL CELLS COUNTED 100
[2023-11-05 09:01] LABS: LARGE PLATELETS FEW
[2023-11-05] MEDS: vancomycin inj 500 MG in normal saline 100ml IV soln 100 ML IV SCH (09:39)
[2023-11-05 11:00] VITALS: BP 96/63; PULSE 80; RESP 22; TEMP 98.6; O2SAT 96
[2023-11-05] MEDS ORDERED: LidoCAINE 2% Topical Jelly 11mL syringe MM ONE (16:40)
[2023-11-05] MEDS: HYDROcodone/acetaminophen 10/325mg tab PO PRN (16:45)
[2023-11-05 18:00] VITALS: BP 103/63; PULSE 82; RESP 15; TEMP 98.6; O2SAT 97
[2023-11-05 20:00] VITALS: RESP 15; O2SAT 97
[2023-11-05 22:00] VITALS: BP 101/62; PULSE 74; RESP 16; TEMP 99.9; O2SAT 96
[2023-11-06] MEDS: HYDROcodone/acetaminophen 5mg/325mg tablet PO PRN ×2 (03:09→08:46)
[2023-11-06 06:44] LABS: BASOPHILS # (AUTO) 0.2 X10'3 (0-0.2); BASOPHILS % (AUTO) 1.1 % (0-1); EOSINOPHILS # (AUTO) 0.5 X10'3 (0-0.9); EOSINOPHILS % (AUTO) 2.9 % (0-6); HEMATOCRIT 34.9 % (42.0-52.0); HEMOGLOBIN 10.7 g/dl (14.0-17.9); LYMPHOCYTES # (AUTO) 1.8 X10'3 (1.1-4.8); LYMPHOCYTES % (AUTO) 10.9 % (21-51); MEAN CORPUSCULAR HEMOGLOBIN 26.8 PG (27.0-31.0); MEAN CORPUSCULAR HGB CONC 30.6 g/dL (33.0-36.5); MEAN CORPUSCULAR VOLUME 87.8 FL (78-98); MEAN PLATELET VOLUME 7.3 FL (7.4-10.4); MONOCYTES % (AUTO) 6.4 % (2-12); NEUTROPHILS # (AUTO) 12.9 X10'3 (1.8-7.7); NEUTROPHILS % (AUTO) 78.7 % (42-75); PLATELET COUNT 293 X10'3 (140-440); RED BLOOD COUNT 3.98 X10'6 (4.70-6.10); RED CELL DISTRIBUTION WIDTH 22.8 % (11.5-14.5); WHITE BLOOD COUNT 16.4 X10'3 (4.5-11.0)
[2023-11-06 06:45] LABS: ALANINE AMINOTRANSFERASE 17 U/L (12-78); ALBUMIN 2.6 G/DL (3.4-5.0); ALBUMIN/GLOBULIN RATIO 0.7 (1.1-1.5); ALKALINE PHOSPHATASE 106 IU/L (46-116); ANION GAP 5 (8-16); ASPARTATE AMINO TRANSFERASE 14 U/L (10-37); BILIRUBIN,TOTAL 0.3 MG/DL (0.1-1.0); BLOOD UREA NITROGEN 33 MG/DL (7-18); BUN/CREATININE RATIO 15.2 (10.0-20.0); CALCIUM 8.3 MG/DL (8.5-10.1); CHLORIDE 108 MMOL/L (99-107); CREATININE 2.17 MG/DL (0.60-1.10); GLUCOSE 100 MG/DL (70-104); MAGNESIUM 1.5 MG/DL (1.5-2.4); PHOSPHORUS 3.3 MG/DL (2.3-4.5); POTASSIUM 4.4 MMOL/L (3.5-5.1); SODIUM 138 MMOL/L (135-145); TOTAL CARBON DIOXIDE 25.1 MMOL/L (24-32); TOTAL PROTEIN 6.1 G/DL (6.4-8.2); eCRCL 36 ML/MIN; eGFR 31 ML/MIN
[2023-11-06 07:00] VITALS: BP 100/65; PULSE 88; RESP 18; TEMP 98.7; O2SAT 95
[2023-11-06] MEDS: nystatin 500,000 unit/5ML UD oral suspension PO SCH ×3 (08:00→21:00)
[2023-11-06] MEDS: K and/or MAG REPLACEMENT MC SCH (08:00)
[2023-11-06] MEDS: multivitamins, therapeutics tablet PO SCH (08:45)
[2023-11-06] MEDS: pantoprazole 40mg Tablet.DR PO SCH (08:45)
[2023-11-06] MEDS: oxybutynin 5mg tablet PO SCH ×4 (08:45→19:30)
[2023-11-06] MEDS: metoprolol succinate 25mg (24-HOUR) SR. Tablet PO SCH (08:46)
[2023-11-06] MEDS: cefepime 2g/NS 100ml ADVANTAGE 100 ML IV SCH (08:49)
[2023-11-06] MEDS: vancomycin inj 500 MG in normal saline 100ml IV soln 100 ML IV SCH (09:46)
[2023-11-06 11:00] VITALS: BP 92/60; PULSE 83; RESP 20; TEMP 98.3; O2SAT 96
[2023-11-06 12:09] LABS: TOTAL CELLS COUNTED 100
[2023-11-06 12:10] LABS: PLATELET ESTIMATE NORMAL
[2023-11-06 12:11] LABS: ANISOCYTOSIS 3+; ELLIPTOCYTES FEW; LARGE PLATELETS FEW
[2023-11-06 15:00] VITALS: BP 103/65; PULSE 78; RESP 22; TEMP 98.5; O2SAT 98
[2023-11-06] MEDS: HYDROcodone/acetaminophen 10/325mg tab PO PRN ×2 (15:57→19:28)
[2023-11-06 18:30] VITALS: BP 146/70; PULSE 86; RESP 16; TEMP 97.2; O2SAT 97
[2023-11-06] MEDS: magnesium 4gm in 100ml NS 100 ML IV PRN (19:26)
[2023-11-06] MEDS: phenazopyridine 100mg tablet PO PRN (19:27)
[2023-11-06] MEDS: magnesium 2GM in 50ml NS 50 ML IV PRN (19:27)
[2023-11-06] MEDS: ondansetron/PF 4mg/2ml inj IV PRN (19:28)
[2023-11-06] MEDS: LORazepam 1 MG tablet PO PRN (19:30)
[2023-11-06] MEDS: docusate sod 100mg capsule PO PRN (19:30)
[2023-11-06 20:00] VITALS: RESP 16; O2SAT 97
[2023-11-07] VITALS (7 sets, daily range): BP systolic 91–141; BP diastolic 59–73; PULSE 68–81; RESP 13–18; TEMP 97.8–98.2; O2SAT 95–98
[2023-11-07] MEDS: ondansetron/PF 4mg/2ml inj IV PRN ×2 (06:08→10:36)
[2023-11-07 06:45] LABS: BASOPHILS # (AUTO) 0.3 X10'3 (0-0.2); BASOPHILS % (AUTO) 1.7 % (0-1); EOSINOPHILS # (AUTO) 0.5 X10'3 (0-0.9); EOSINOPHILS % (AUTO) 3.6 % (0-6); HEMATOCRIT 37.3 % (42.0-52.0); HEMOGLOBIN 11.5 g/dl (14.0-17.9); LYMPHOCYTES # (AUTO) 1.4 X10'3 (1.1-4.8); MEAN CORPUSCULAR HEMOGLOBIN 27.3 PG (27.0-31.0); MEAN CORPUSCULAR HGB CONC 30.9 g/dL (33.0-36.5); MEAN CORPUSCULAR VOLUME 88.4 FL (78-98); MEAN PLATELET VOLUME 7.3 FL (7.4-10.4); MONOCYTES # (AUTO) 0.8 X10'3 (0-0.9); MONOCYTES % (AUTO) 5.3 % (2-12); NEUTROPHILS # (AUTO) 12.1 X10'3 (1.8-7.7); NEUTROPHILS % (AUTO) 80.4 % (42-75); PLATELET COUNT 303 X10'3 (140-440); RED BLOOD COUNT 4.22 X10'6 (4.70-6.10); RED CELL DISTRIBUTION WIDTH 23.1 % (11.5-14.5); WHITE BLOOD COUNT 15.1 X10'3 (4.5-11.0)
[2023-11-07 07:15] LABS: ALANINE AMINOTRANSFERASE 21 U/L (12-78); ALBUMIN 2.7 G/DL (3.4-5.0); ALBUMIN/GLOBULIN RATIO 0.7 (1.1-1.5); ALKALINE PHOSPHATASE 117 IU/L (46-116); ANION GAP 8 (8-16); ASPARTATE AMINO TRANSFERASE 12 U/L (10-37); BILIRUBIN,TOTAL 0.3 MG/DL (0.1-1.0); BLOOD UREA NITROGEN 28 MG/DL (7-18); BUN/CREATININE RATIO 13.5 (10.0-20.0); CALCIUM 8.5 MG/DL (8.5-10.1); CHLORIDE 109 MMOL/L (99-107); CREATININE 2.07 MG/DL (0.60-1.10); GLUCOSE 116 MG/DL (70-104); POTASSIUM 4.4 MMOL/L (3.5-5.1); SODIUM 142 MMOL/L (135-145); TOTAL CARBON DIOXIDE 24.8 MMOL/L (24-32); TOTAL PROTEIN 6.6 G/DL (6.4-8.2); eCRCL 37 ML/MIN; eGFR 33 ML/MIN
[2023-11-07 07:20] LABS: TOTAL CELLS COUNTED 100
[2023-11-07 07:21] LABS: MYELOCYTES % (MANUAL) 0 % (0-0)
[2023-11-07 07:22] LABS: ANISOCYTOSIS 3+; ELLIPTOCYTES FEW; LARGE PLATELETS FEW; PLATELET ESTIMATE NORMAL
[2023-11-07] MEDS: cefepime 2g/NS 100ml ADVANTAGE 100 ML IV SCH (07:58)
[2023-11-07] MEDS: metoprolol succinate 25mg (24-HOUR) SR. Tablet PO SCH (07:59)
[2023-11-07] MEDS: nystatin 500,000 unit/5ML UD oral suspension PO SCH ×3 (07:59→22:37)
[2023-11-07] MEDS: K and/or MAG REPLACEMENT MC SCH ×2 (07:59→20:00)
[2023-11-07] MEDS: multivitamins, therapeutics tablet PO SCH (07:59)
[2023-11-07] MEDS: pantoprazole 40mg Tablet.DR PO SCH (07:59)
[2023-11-07] MEDS: oxybutynin 5mg tablet PO SCH ×4 (07:59→22:38)
[2023-11-07] MEDS: vancomycin inj 500 MG in normal saline 100ml IV soln 100 ML IV SCH (10:00)
[2023-11-07] MEDS: HYDROcodone/acetaminophen 5mg/325mg tablet PO PRN (14:32)
[2023-11-07] MEDS: ondansetron 4mg rapidly disintigrating tab PO PRN (14:32)
[2023-11-08] VITALS (8 sets, daily range): BP systolic 91–113; BP diastolic 58–71; PULSE 74–83; RESP 13–18; TEMP 97.6–98.2; O2SAT 94–97
[2023-11-08] MEDS: K and/or MAG REPLACEMENT MC SCH ×2 (08:00→20:46)
[2023-11-08] MEDS: cefepime 2g/NS 100ml ADVANTAGE 100 ML IV SCH (08:00)
[2023-11-08] MEDS: nystatin 500,000 unit/5ML UD oral suspension PO SCH ×4 (09:12→20:24)
[2023-11-08] MEDS: oxybutynin 5mg tablet PO SCH ×4 (09:12→20:21)
[2023-11-08] MEDS: HYDROcodone/acetaminophen 5mg/325mg tablet PO PRN ×2 (09:12→13:32)
[2023-11-08] MEDS: metoprolol succinate 25mg (24-HOUR) SR. Tablet PO SCH (09:12)
[2023-11-08] MEDS: multivitamins, therapeutics tablet PO SCH (09:12)
[2023-11-08] MEDS: pantoprazole 40mg Tablet.DR PO SCH (09:13)
[2023-11-08] MEDS: vancomycin inj 500 MG in normal saline 100ml IV soln 100 ML IV SCH (10:00)
[2023-11-08 10:40] LABS: BASOPHILS # (AUTO) 0.2 X10'3 (0-0.2); BASOPHILS % (AUTO) 1.1 % (0-1); EOSINOPHILS # (AUTO) 0.4 X10'3 (0-0.9); HEMATOCRIT 36.1 % (42.0-52.0); HEMOGLOBIN 11.1 g/dl (14.0-17.9); LYMPHOCYTES # (AUTO) 1.2 X10'3 (1.1-4.8); LYMPHOCYTES % (AUTO) 6.2 % (21-51); MEAN CORPUSCULAR HEMOGLOBIN 27.4 PG (27.0-31.0); MEAN CORPUSCULAR HGB CONC 30.8 g/dL (33.0-36.5); MEAN CORPUSCULAR VOLUME 88.7 FL (78-98); MEAN PLATELET VOLUME 7.5 FL (7.4-10.4); MONOCYTES # (AUTO) 0.9 X10'3 (0-0.9); MONOCYTES % (AUTO) 4.9 % (2-12); NEUTROPHILS # (AUTO) 16.3 X10'3 (1.8-7.7); NEUTROPHILS % (AUTO) 85.8 % (42-75); PLATELET COUNT 286 X10'3 (140-440); RED BLOOD COUNT 4.07 X10'6 (4.70-6.10); RED CELL DISTRIBUTION WIDTH 23.1 % (11.5-14.5)
[2023-11-08 10:54] LABS: ALANINE AMINOTRANSFERASE 14 U/L (12-78); ALBUMIN 2.6 G/DL (3.4-5.0); ALBUMIN/GLOBULIN RATIO 0.7 (1.1-1.5); ALKALINE PHOSPHATASE 109 IU/L (46-116); ANION GAP 5 (8-16); ASPARTATE AMINO TRANSFERASE 14 U/L (10-37); BILIRUBIN,TOTAL 0.3 MG/DL (0.1-1.0); BLOOD UREA NITROGEN 25 MG/DL (7-18); BUN/CREATININE RATIO 11.6 (10.0-20.0); CALCIUM 8.3 MG/DL (8.5-10.1); CHLORIDE 109 MMOL/L (99-107); CREATININE 2.16 MG/DL (0.60-1.10); GLUCOSE 138 MG/DL (70-104); POTASSIUM 4.5 MMOL/L (3.5-5.1); SODIUM 139 MMOL/L (135-145); TOTAL PROTEIN 6.3 G/DL (6.4-8.2); eCRCL 36 ML/MIN; eGFR 31 ML/MIN
[2023-11-08 11:06] LABS: TOTAL CELLS COUNTED 100
[2023-11-08 11:07] LABS: ANISOCYTOSIS 3+; ELLIPTOCYTES 1+; LARGE PLATELETS FEW; PLATELET ESTIMATE NORMAL
[2023-11-09] VITALS (7 sets, daily range): BP systolic 100–110; BP diastolic 56–80; PULSE 78–87; RESP 13–23; TEMP 97.4–98.6; O2SAT 94–99
[2023-11-09] MEDS: HYDROcodone/acetaminophen 10/325mg tab PO PRN (05:36)
[2023-11-09] MEDS: cefepime 2g/NS 100ml ADVANTAGE 100 ML IV SCH (08:00)
[2023-11-09] MEDS: K and/or MAG REPLACEMENT MC SCH ×2 (08:00→20:00)
[2023-11-09] MEDS: nystatin 500,000 unit/5ML UD oral suspension PO SCH ×3 (10:17→20:37)
[2023-11-09] MEDS: HYDROcodone/acetaminophen 5mg/325mg tablet PO PRN (10:17)
[2023-11-09] MEDS: docusate sod 100mg capsule PO PRN (10:17)
[2023-11-09] MEDS: metoprolol succinate 25mg (24-HOUR) SR. Tablet PO SCH (10:17)
[2023-11-09] MEDS: oxybutynin 5mg tablet PO SCH ×4 (10:17→20:37)
[2023-11-09] MEDS: multivitamins, therapeutics tablet PO SCH (10:17)
[2023-11-09] MEDS: pantoprazole 40mg Tablet.DR PO SCH (10:18)
[2023-11-09] MEDS: vancomycin inj 500 MG in normal saline 100ml IV soln 100 ML IV SCH (11:25)
[2023-11-09] MEDS: ondansetron/PF 4mg/2ml inj IV PRN (12:08)
[2023-11-10 02:00] VITALS: BP 101/70; PULSE 80; RESP 24; TEMP 97.2; O2SAT 98
[2023-11-10] MEDS: K and/or MAG REPLACEMENT MC SCH ×2 (08:00→20:00)
[2023-11-10 08:30] VITALS: RESP 16; O2SAT 97
[2023-11-10] MEDS: cefepime 2g/NS 100ml ADVANTAGE 100 ML IV SCH (08:57)
[2023-11-10] MEDS: metoprolol succinate 25mg (24-HOUR) SR. Tablet PO SCH (08:58)
[2023-11-10] MEDS: oxybutynin 5mg tablet PO SCH ×4 (08:59→23:40)
[2023-11-10] MEDS: multivitamins, therapeutics tablet PO SCH (08:59)
[2023-11-10] MEDS: nystatin 500,000 unit/5ML UD oral suspension PO SCH ×3 (09:05→21:00)
[2023-11-10] MEDS: pantoprazole 40mg Tablet.DR PO SCH (09:05)
[2023-11-10] MEDS: ondansetron 4mg rapidly disintigrating tab PO PRN (09:05)
[2023-11-10 11:00] VITALS: BP 113/74; PULSE 80; RESP 16; TEMP 98.2; O2SAT 97
[2023-11-10 18:00] VITALS: BP 115/75; PULSE 83; RESP 18; TEMP 99.2; O2SAT 97
[2023-11-10 20:00] VITALS: RESP 18; O2SAT 97
[2023-11-10] MEDS: HYDROcodone/acetaminophen 5mg/325mg tablet PO PRN (21:47)
[2023-11-10 22:00] VITALS: BP 110/73; PULSE 79; RESP 18; TEMP 98.3; O2SAT 97
[2023-11-11 02:00] VITALS: BP 110/67; PULSE 92; RESP 18; TEMP 97.7; O2SAT 98
[2023-11-11 06:00] VITALS: BP 112/75; PULSE 80; RESP 16; TEMP 98.2; O2SAT 97
[2023-11-11 08:00] VITALS: RESP 14; O2SAT 97
[2023-11-11] MEDS: nystatin 500,000 unit/5ML UD oral suspension PO SCH (08:00)
[2023-11-11] MEDS: K and/or MAG REPLACEMENT MC SCH (08:00)
[2023-11-11] MEDS: metoprolol succinate 25mg (24-HOUR) SR. Tablet PO SCH (09:46)
[2023-11-11] MEDS: oxybutynin 5mg tablet PO SCH (09:46)
[2023-11-11] MEDS: multivitamins, therapeutics tablet PO SCH (09:46)
[2023-11-11] MEDS: pantoprazole 40mg Tablet.DR PO SCH (09:47)
[2023-11-11] MEDS: phenazopyridine 100mg tablet PO PRN (09:50)
[2023-11-11 11:24] VITALS: BP 110/67; PULSE 84; RESP 17; TEMP 98.7; O2SAT 96
[2023-11-11] MEDS ORDERED: METO-395 PO (11:54)
== END 2023-11-11 16:00 | disposition home health service (06) | DRG 393 ==
LOC: ER 20:12 → ED HOLD 10-19 02:16 → PCU 3S 10-19 19:19
PROVIDERS: ADMIT Family Medicine; ATTEND Internal Medicine
DX: K94.03 Colostomy malfunction (principal); I50.23 Acute on chronic systolic (congestive) heart failure; I13.0 Hypertensive heart and chronic kidney disease with heart failure and stage 1 through stage 4 chronic kidney disease, or unspecified chronic kidney disease; N13.6 Pyonephrosis; N17.9 Acute kidney failure, unspecified; Z16.24 Resistance to multiple antibiotics; N18.4 Chronic kidney disease, stage 4 (severe); D64.9 Anemia, unspecified; G89.4 Chronic pain syndrome; I48.91 Unspecified atrial fibrillation; Z79.01 Long term (current) use of anticoagulants; J44.9 Chronic obstructive pulmonary disease, unspecified; E86.0 Dehydration; R31.9 Hematuria, unspecified; L89.151 Pressure ulcer of sacral region, stage 1; E87.6 Hypokalemia; E83.42 Hypomagnesemia; I95.89 Other hypotension; N21.0 Calculus in bladder; N40.0 Benign prostatic hyperplasia without lower urinary tract symptoms; Z79.891 Long term (current) use of opiate analgesic; Z87.442 Personal history of urinary calculi; Z88.0 Allergy status to penicillin; Z95.5 Presence of coronary angioplasty implant and graft
CPT/HCPCS: 36415; 36569; 71045; 74176; 76700; 76857; 76942; 80053; 80202; 81001; 82948; 83605; 83690; 83735; 83880; 84100; 84145; 84484; 85007; 85008; 85025; 85610; 85730; 86140; 87040; 87077; 87081; 87088; 87186; 93005; 97116; 97161; 97530; 97535; 99285; A4314; A4358; A4421; A5200; A6154; A6212; A6250; A6258; A6260; A6449; C1751; C9113; G0378; J0692; J0696; J1956; J2405; J3370; J3475; J3490; J7030; J7040; J7050; Q9967

== ENCOUNTER 2023-11-11 20:10 | Inpatient (IN) | payer BC, MEDICAID ==
[~2023-11-11] VITALS: Ht 175.3 cm; Wt 80.6 kg
[~2023-11-11 20:10] MED LIST changes: +METO-395 PO
[2023-11-11 21:28] LABS: BASOPHILS # (AUTO) 0.3 X10'3 (0-0.2); BASOPHILS % (AUTO) 1.1 % (0-1); EOSINOPHILS # (AUTO) 0.2 X10'3 (0-0.9); EOSINOPHILS % (AUTO) 0.8 % (0-6); HEMATOCRIT 40.4 % (42.0-52.0); HEMOGLOBIN 12.5 g/dl (14.0-17.9); LYMPHOCYTES # (AUTO) 1.6 X10'3 (1.1-4.8); LYMPHOCYTES % (AUTO) 5.6 % (21-51); MEAN CORPUSCULAR HEMOGLOBIN 26.9 PG (27.0-31.0); MEAN CORPUSCULAR VOLUME 86.9 FL (78-98); MEAN PLATELET VOLUME 7.3 FL (7.4-10.4); MONOCYTES # (AUTO) 1.5 X10'3 (0-0.9); MONOCYTES % (AUTO) 5.4 % (2-12); NEUTROPHILS # (AUTO) 24.6 X10'3 (1.8-7.7); NEUTROPHILS % (AUTO) 87.1 % (42-75); PLATELET COUNT 344 X10'3 (140-440); RED BLOOD COUNT 4.65 X10'6 (4.70-6.10); RED CELL DISTRIBUTION WIDTH 22.5 % (11.5-14.5)
[2023-11-11 21:34] LABS: ALANINE AMINOTRANSFERASE 18 U/L (12-78); ALBUMIN/GLOBULIN RATIO 0.7 (1.1-1.5); ALKALINE PHOSPHATASE 125 IU/L (46-116); ANION GAP 11 (8-16); ASPARTATE AMINO TRANSFERASE 14 U/L (10-37); BILIRUBIN,TOTAL 0.5 MG/DL (0.1-1.0); BLOOD UREA NITROGEN 23 MG/DL (7-18); BUN/CREATININE RATIO 11.3 (10.0-20.0); CHLORIDE 106 MMOL/L (99-107); CREATININE 2.04 MG/DL (0.60-1.10); GLUCOSE 141 MG/DL (70-104); LIPASE 40 U/L (16-77); POTASSIUM 3.5 MMOL/L (3.5-5.1); SODIUM 139 MMOL/L (135-145); TOTAL CARBON DIOXIDE 22.2 MMOL/L (24-32); TOTAL PROTEIN 7.1 G/DL (6.4-8.2); eCRCL 38 ML/MIN; eGFR 33 ML/MIN
[2023-11-11 21:36] LABS: WHITE BLOOD COUNT 28.3 X10'3 (4.5-11.0)
[2023-11-11 22:20] LABS: TOTAL CELLS COUNTED 100
[2023-11-11 22:21] LABS: ACANTHOCYTES FEW; ANISOCYTOSIS 3+; ELLIPTOCYTES 1+; GIANT PLATELET FEW; PLATELET ESTIMATE NORMAL
[2023-11-11 23:12] LABS: CLARITY,URINE CLOUDY (Clear)
[2023-11-11 23:30] LABS: COLOR,URINE ORANGE (Yellow); UA COLLECTION TYPE FOLEY CATH
[2023-11-11] MEDS: normal saline 1000ML IV soln IVB ONE (23:53)
[2023-11-11 23:57] LABS: WBC,URINE TNTC /HPF (0-4)
[2023-11-11 23:59] LABS: MUCUS STRANDS FEW /LPF (Neg); SQUAMOUS EPITHELIAL CELL,UR NONE SEEN /LPF (FEW)
[2023-11-12 00:01] LABS: BACTERIA,URINE FEW /HPF (Neg)
[2023-11-12] MEDS: ondansetron/PF 4mg/2ml inj IV ONE (00:03)
[2023-11-12] MEDS: acetaminophen 1,000mg/100ml IV 100 ML IV STA (00:04)
[2023-11-12] MEDS: ciprofloxacin lact 400MG/200ML 200 ML IV SCH (00:55)
[2023-11-12] MEDS: metroNIDAZOLE-Flagyl 500mg/NS 100 ML IV ONE (02:03)
[2023-11-12] MEDS ORDERED: mag hydrox/Alum hydrox/simeth 30ml oral suspension PO PRN (02:45)
[2023-11-12] MEDS ORDERED: ondansetron 4mg rapidly disintigrating tab PO PRN (02:45)
[2023-11-12] MEDS ORDERED: acetaminophen 325mg tablet PO PRN (02:45)
[2023-11-12] MEDS ORDERED: magnesium hydroxide 30ml (MOM) UD suspension PO PRN (02:45)
[2023-11-12] MEDS ORDERED: acetaminophen 650mg rectal suppository RC PRN (02:45)
[2023-11-12] MEDS ORDERED: bisacodyl 10mg suppository rectal RC PRN (02:45)
[2023-11-12] MEDS ORDERED: morphine 2 MG/ML inj. syringe IV PRN (02:45)
[2023-11-12] MEDS: dextrose 5%-1/2 normal saline 1,000 ML IV SCH (03:33)
[2023-11-12] MEDS: vancomycin/NS 1 GM ADD-VANTAGE 250 ML IV SCH (03:34)
[2023-11-12] MEDS: pantoprazole 40MG/NS 100ML BAG 100 ML IV SCH (07:18)
[2023-11-12] MEDS: morphine 2 MG/ML inj. syringe IV PRN (07:19)
[2023-11-12] MEDS: docusate sod 100mg capsule PO SCH (08:00)
[2023-11-12 08:40] LABS: APTT 29 SECONDS (22-32); INR 1.1 INR; PROTHROMBIN TIME 12.1 SECONDS (9.0-12.0)
[2023-11-12 09:18] LABS: MAGNESIUM 1.6 MG/DL (1.5-2.4); PHOSPHORUS 2.4 MG/DL (2.3-4.5)
[2023-11-12] MEDS: cefepime 2g/NS 100ml ADVANTAGE 100 ML IV SCH (21:13)
[2023-11-13] MEDS: vancomycin/NS 1 GM ADD-VANTAGE 250 ML IV SCH (05:10)
[2023-11-13 09:22] LABS: BASOPHILS # (AUTO) 0.2 X10'3 (0-0.2); BASOPHILS % (AUTO) 1.1 % (0-1); EOSINOPHILS # (AUTO) 0.4 X10'3 (0-0.9); EOSINOPHILS % (AUTO) 2.8 % (0-6); HEMATOCRIT 34.3 % (42.0-52.0); HEMOGLOBIN 10.8 g/dl (14.0-17.9); LYMPHOCYTES # (AUTO) 1.2 X10'3 (1.1-4.8); LYMPHOCYTES % (AUTO) 8.6 % (21-51); MEAN CORPUSCULAR HEMOGLOBIN 27.5 PG (27.0-31.0); MEAN CORPUSCULAR HGB CONC 31.4 g/dL (33.0-36.5); MEAN CORPUSCULAR VOLUME 87.6 FL (78-98); MEAN PLATELET VOLUME 7.3 FL (7.4-10.4); MONOCYTES # (AUTO) 0.8 X10'3 (0-0.9); MONOCYTES % (AUTO) 5.6 % (2-12); NEUTROPHILS # (AUTO) 11.6 X10'3 (1.8-7.7); NEUTROPHILS % (AUTO) 81.9 % (42-75); PLATELET COUNT 243 X10'3 (140-440); RED BLOOD COUNT 3.92 X10'6 (4.70-6.10); RED CELL DISTRIBUTION WIDTH 22.8 % (11.5-14.5); WHITE BLOOD COUNT 14.2 X10'3 (4.5-11.0)
[2023-11-13 09:38] LABS: ALANINE AMINOTRANSFERASE 12 U/L (12-78); ALBUMIN 2.4 G/DL (3.4-5.0); ALBUMIN/GLOBULIN RATIO 0.7 (1.1-1.5); ALKALINE PHOSPHATASE 92 IU/L (46-116); ANION GAP 9 (8-16); ASPARTATE AMINO TRANSFERASE 17 U/L (10-37); BILIRUBIN,TOTAL 0.4 MG/DL (0.1-1.0); BLOOD UREA NITROGEN 16 MG/DL (7-18); CALCIUM 8.1 MG/DL (8.5-10.1); CHLORIDE 109 MMOL/L (99-107); GLUCOSE 108 MG/DL (70-104); POTASSIUM 3.4 MMOL/L (3.5-5.1); SODIUM 141 MMOL/L (135-145); TOTAL CARBON DIOXIDE 23.4 MMOL/L (24-32); TOTAL PROTEIN 5.9 G/DL (6.4-8.2); eCRCL 48 ML/MIN; eGFR 44 ML/MIN
[2023-11-13 10:15] LABS: HIV ANTIBODY 1&2 RAPID NON-REACTIVE (Neg)
[2023-11-13 10:31] LABS: PLATELET ESTIMATE NORMAL; TOTAL CELLS COUNTED 100
[2023-11-13 10:32] LABS: ANISOCYTOSIS 3+; ELLIPTOCYTES FEW; GIANT PLATELET FEW; LARGE PLATELETS FEW; SCHISTOCYTES FEW
[2023-11-13 21:30] VITALS: BP 125/88; PULSE 78; RESP 18; TEMP 99.1; O2SAT 97
[2023-11-13] MEDS: HYDROcodone/acetaminophen 10/325mg tab PO PRN (22:29)
[2023-11-14] VITALS (25 sets, daily range): BP systolic 87–123; BP diastolic 56–81; PULSE 77–140; RESP 10–26; TEMP 97.3–98; O2SAT 88–100
[2023-11-14 06:42] LABS: BASOPHILS # (AUTO) 0.2 X10'3 (0-0.2); BASOPHILS % (AUTO) 1.3 % (0-1); EOSINOPHILS # (AUTO) 0.4 X10'3 (0-0.9); EOSINOPHILS % (AUTO) 3.2 % (0-6); HEMATOCRIT 34.5 % (42.0-52.0); HEMOGLOBIN 10.9 g/dl (14.0-17.9); LYMPHOCYTES # (AUTO) 1.1 X10'3 (1.1-4.8); LYMPHOCYTES % (AUTO) 8.9 % (21-51); MEAN CORPUSCULAR HEMOGLOBIN 27.6 PG (27.0-31.0); MEAN CORPUSCULAR HGB CONC 31.6 g/dL (33.0-36.5); MEAN CORPUSCULAR VOLUME 87.4 FL (78-98); MEAN PLATELET VOLUME 7.2 FL (7.4-10.4); MONOCYTES # (AUTO) 0.8 X10'3 (0-0.9); MONOCYTES % (AUTO) 6.3 % (2-12); NEUTROPHILS % (AUTO) 80.3 % (42-75); PLATELET COUNT 249 X10'3 (140-440); RED BLOOD COUNT 3.95 X10'6 (4.70-6.10); WHITE BLOOD COUNT 12.5 X10'3 (4.5-11.0)
[2023-11-14 07:01] LABS: ALANINE AMINOTRANSFERASE 12 U/L (12-78); ALBUMIN 2.4 G/DL (3.4-5.0); ALBUMIN/GLOBULIN RATIO 0.7 (1.1-1.5); ALKALINE PHOSPHATASE 84 IU/L (46-116); ANION GAP 4 (8-16); ASPARTATE AMINO TRANSFERASE 13 U/L (10-37); BILIRUBIN,TOTAL 0.4 MG/DL (0.1-1.0); BLOOD UREA NITROGEN 14 MG/DL (7-18); BUN/CREATININE RATIO 8.4 (10.0-20.0); CHLORIDE 112 MMOL/L (99-107); CREATININE 1.66 MG/DL (0.60-1.10); GLUCOSE 103 MG/DL (70-104); POTASSIUM 3.7 MMOL/L (3.5-5.1); SODIUM 143 MMOL/L (135-145); TOTAL CARBON DIOXIDE 26.9 MMOL/L (24-32); TOTAL PROTEIN 5.7 G/DL (6.4-8.2); eCRCL 47 ML/MIN; eGFR 42 ML/MIN
[2023-11-14 07:44] LABS: ANISOCYTOSIS 3+; PLATELET ESTIMATE NORMAL; TOTAL CELLS COUNTED 100
[2023-11-14 07:46] LABS: ELLIPTOCYTES FEW; LARGE PLATELETS FEW
[2023-11-14] MEDS: ondansetron/PF 4mg/2ml inj IV PRN ×2 (09:33→19:36)
[2023-11-14] MEDS ORDERED: iohexol 300 MG/1 ML 50ml polymer ONE (14:06)
[2023-11-14] MEDS ORDERED: fentaNYL/PF 50MCG/1 ML 2ML syringe ONE (14:17)
[2023-11-14] MEDS ORDERED: midazolam 1 mg/ML 2ml injection ONE (14:18)
[2023-11-14] MEDS ORDERED: propofol inj 20 ML IV ONE (14:20)
[2023-11-14] MEDS ORDERED: LIDOcaine 2% (20mg/ml) 5ml vial ONE (14:20)
[2023-11-14] MEDS ORDERED: rocuronium 10mg/ml inj IV ONE (14:20)
[2023-11-14] MEDS ORDERED: dexamethasone sod phosphate 10mg/ml inj ONE (14:32)
[2023-11-14] MEDS ORDERED: sevoflurane 250ml liquid IH ONE (14:32)
[2023-11-14] MEDS ORDERED: neostigmine methylsulfate 1 MG/ML 10ml vial ONE (14:32)
[2023-11-14] MEDS ORDERED: glycopyrrolate 0.2mg/ml inj ONE (14:32)
[2023-11-14] MEDS ORDERED: ondansetron/PF 4mg/2ml inj ONE (14:32)
[2023-11-14] MEDS ORDERED: morphine 2 MG/ML inj. syringe IV PRN (14:55)
[2023-11-14] MEDS ORDERED: meperidine/PF 25mg/ml syringe IV PRN (14:55)
[2023-11-14] MEDS: iohexol 300 MG/1 ML 10ml vial IV ONE (15:59)
[2023-11-14] MEDS: morphine 4 MG/ML inj SYRINge IV PRN (18:29)
[2023-11-14] MEDS: meperidine/PF 25mg/ml syringe IV PRN (18:34)
[2023-11-14] MEDS: metoprolol tartrate 1mg/ml inj IV PRN (19:04)
[2023-11-14] MEDS: potassium Cl 40MEQ/1/2NS 520ml 520 ML IV PRN (19:12)
[2023-11-14] MEDS: normal saline 1000ml 1,000 ML IV ONE (19:26)
[2023-11-14] MEDS: vancomycin/NS 1 GM ADD-VANTAGE 250 ML IV SCH (19:38)
[2023-11-15 02:00] VITALS: BP 106/64; PULSE 73; RESP 16; TEMP 98.7; O2SAT 99
[2023-11-15 06:00] VITALS: BP 106/64; PULSE 113; RESP 16; TEMP 98; O2SAT 96
[2023-11-15] MEDS: cefepime 2g/NS 100ml ADVANTAGE 100 ML IV SCH (07:43)
[2023-11-15] MEDS: metoprolol tartrate 1mg/ml inj IV ONE (08:10)
[2023-11-15 09:40] LABS: BASOPHILS # (AUTO) 0.1 X10'3 (0-0.2); BASOPHILS % (AUTO) 0.2 % (0-1); EOSINOPHILS % (AUTO) 0 % (0-6); LYMPHOCYTES # (AUTO) 0.6 X10'3 (1.1-4.8); LYMPHOCYTES % (AUTO) 2.2 % (21-51); MEAN PLATELET VOLUME 7.5 FL (7.4-10.4); MONOCYTES # (AUTO) 1.5 X10'3 (0-0.9); MONOCYTES % (AUTO) 5.3 % (2-12); NEUTROPHILS # (AUTO) 26.6 X10'3 (1.8-7.7); NEUTROPHILS % (AUTO) 92.3 % (42-75); PLATELET COUNT 285 X10'3 (140-440)
[2023-11-15 10:00] VITALS: BP 92/52; PULSE 109; RESP 22; TEMP 98.6; O2SAT 94
[2023-11-15 10:03] LABS: ALANINE AMINOTRANSFERASE 10 U/L (12-78); ALBUMIN 2.3 G/DL (3.4-5.0); ALBUMIN/GLOBULIN RATIO 0.7 (1.1-1.5); ALKALINE PHOSPHATASE 76 IU/L (46-116); ANION GAP 11 (8-16); ASPARTATE AMINO TRANSFERASE 11 U/L (10-37); BILIRUBIN,TOTAL 0.4 MG/DL (0.1-1.0); BLOOD UREA NITROGEN 22 MG/DL (7-18); BUN/CREATININE RATIO 10.4 (10.0-20.0); CALCIUM 7.5 MG/DL (8.5-10.1); CHLORIDE 113 MMOL/L (99-107); CREATININE 2.12 MG/DL (0.60-1.10); GLUCOSE 126 MG/DL (70-104); POTASSIUM 5.4 MMOL/L (3.5-5.1); SODIUM 142 MMOL/L (135-145); TOTAL CARBON DIOXIDE 18.2 MMOL/L (24-32); TOTAL PROTEIN 5.5 G/DL (6.4-8.2); eCRCL 37 ML/MIN; eGFR 32 ML/MIN
[2023-11-15 10:04] LABS: HEMATOCRIT 32.7 % (42.0-52.0); HEMOGLOBIN 10.1 g/dl (14.0-17.9); MEAN CORPUSCULAR HEMOGLOBIN 27.7 PG (27.0-31.0); MEAN CORPUSCULAR HGB CONC 30.9 g/dL (33.0-36.5); MEAN CORPUSCULAR VOLUME 89.8 FL (78-98); RED BLOOD COUNT 3.64 X10'6 (4.70-6.10); RED CELL DISTRIBUTION WIDTH 22.1 % (11.5-14.5)
[2023-11-15 10:06] LABS: WHITE BLOOD COUNT 28.9 X10'3 (4.5-11.0)
[2023-11-15] MEDS: morphine 2 MG/ML inj. syringe IV PRN ×2 (13:39→19:48)
[2023-11-15 14:00] VITALS: BP 116/63; PULSE 104; RESP 22; TEMP 99; O2SAT 93
[2023-11-15 16:30] LABS: ANISOCYTOSIS 3+; BURR CELLS 2+; ELLIPTOCYTES 1+; PLATELET ESTIMATE NORMAL; TOTAL CELLS COUNTED 100
[2023-11-15 16:31] LABS: POLYCHROMASIA FEW
[2023-11-15 22:00] VITALS: BP 105/65; PULSE 98; RESP 16; TEMP 97.7; O2SAT 98
[2023-11-16] VITALS (7 sets, daily range): BP systolic 83–110; BP diastolic 49–69; PULSE 96–110; RESP 14–18; TEMP 97.2–98.6; O2SAT 93–98
[2023-11-16 01:01] LABS: ALANINE AMINOTRANSFERASE 12 U/L (12-78); ALBUMIN 2.2 G/DL (3.4-5.0); ALBUMIN/GLOBULIN RATIO 0.7 (1.1-1.5); ALKALINE PHOSPHATASE 69 IU/L (46-116); ANION GAP 8 (8-16); ASPARTATE AMINO TRANSFERASE 10 U/L (10-37); BILIRUBIN,TOTAL 0.3 MG/DL (0.1-1.0); BLOOD UREA NITROGEN 26 MG/DL (7-18); BUN/CREATININE RATIO 9.6 (10.0-20.0); CALCIUM 7.3 MG/DL (8.5-10.1); CHLORIDE 109 MMOL/L (99-107); GLUCOSE 135 MG/DL (70-104); POTASSIUM 4.3 MMOL/L (3.5-5.1); SODIUM 137 MMOL/L (135-145); TOTAL CARBON DIOXIDE 20.5 MMOL/L (24-32); TOTAL PROTEIN 5.4 G/DL (6.4-8.2); eCRCL 29 ML/MIN; eGFR 24 ML/MIN
[2023-11-16] MEDS ORDERED: VANCOMYCIN LEVEL IV ONE (02:30)
[2023-11-16] MEDS: VANCOMYCIN LEVEL IV ONE (02:53)
[2023-11-16] MEDS: vancomycin/NS 1 GM ADD-VANTAGE 250 ML IV SCH (03:02)
[2023-11-16 09:07] LABS: HEMATOCRIT 28.8 % (42.0-52.0); HEMOGLOBIN 8.8 g/dl (14.0-17.9); MEAN CORPUSCULAR HEMOGLOBIN 27.5 PG (27.0-31.0); MEAN CORPUSCULAR HGB CONC 30.7 g/dL (33.0-36.5); MEAN CORPUSCULAR VOLUME 89.3 FL (78-98); MEAN PLATELET VOLUME 7.4 FL (7.4-10.4); PLATELET COUNT 235 X10'3 (140-440); RED BLOOD COUNT 3.22 X10'6 (4.70-6.10); RED CELL DISTRIBUTION WIDTH 22.1 % (11.5-14.5)
[2023-11-16 09:30] LABS: ANISOCYTOSIS 3+; ELLIPTOCYTES 1+; PLATELET ESTIMATE NORMAL; POIKILOCYTOSIS FEW; POLYCHROMASIA FEW; TOTAL CELLS COUNTED 100
[2023-11-16] MEDS: fludrocortisone acetate 0.1mg tablet PO SCH (19:31)
[2023-11-17] MEDS: midodrine 5mg tablet PO SCH (00:12)
[2023-11-17] MEDS: VANCOMYCIN 750MG IV in NS 250 ML IV SCH (03:10)
[2023-11-17 06:46] VITALS: BP 109/67; PULSE 91; RESP 20; TEMP 98.3; O2SAT 92
[2023-11-17] MEDS: metoprolol succinate 25mg (24-HOUR) SR. Tablet PO SCH (06:56)
[2023-11-17] MEDS: finasteride 5mg tablet PO SCH (06:56)
[2023-11-17] MEDS ORDERED: metoprolol succinate 25mg (24-HOUR) SR. Tablet PO SCH (08:00)
[2023-11-17 08:44] VITALS: RESP 18; O2SAT 93
[2023-11-17 10:00] VITALS: BP 105/65; PULSE 99; RESP 16; TEMP 98.4; O2SAT 94
[2023-11-17 11:22] LABS: BASOPHILS # (AUTO) 0.1 X10'3 (0-0.2); BASOPHILS % (AUTO) 0.4 % (0-1); EOSINOPHILS # (AUTO) 0.3 X10'3 (0-0.9); EOSINOPHILS % (AUTO) 1.7 % (0-6); HEMATOCRIT 28.9 % (42.0-52.0); HEMOGLOBIN 8.7 g/dl (14.0-17.9); LYMPHOCYTES # (AUTO) 0.8 X10'3 (1.1-4.8); LYMPHOCYTES % (AUTO) 4.1 % (21-51); MEAN CORPUSCULAR VOLUME 90.1 FL (78-98); MEAN PLATELET VOLUME 7.7 FL (7.4-10.4); MONOCYTES # (AUTO) 1.1 X10'3 (0-0.9); MONOCYTES % (AUTO) 5.7 % (2-12); NEUTROPHILS # (AUTO) 17.4 X10'3 (1.8-7.7); NEUTROPHILS % (AUTO) 88.1 % (42-75); PLATELET COUNT 237 X10'3 (140-440); RED BLOOD COUNT 3.21 X10'6 (4.70-6.10); WHITE BLOOD COUNT 19.7 X10'3 (4.5-11.0)
[2023-11-17 11:47] LABS: ALANINE AMINOTRANSFERASE 11 U/L (12-78); ALBUMIN/GLOBULIN RATIO 0.6 (1.1-1.5); ALKALINE PHOSPHATASE 66 IU/L (46-116); ANION GAP 9 (8-16); ASPARTATE AMINO TRANSFERASE 13 U/L (10-37); BILIRUBIN,TOTAL 0.3 MG/DL (0.1-1.0); BLOOD UREA NITROGEN 25 MG/DL (7-18); BUN/CREATININE RATIO 9.5 (10.0-20.0); CALCIUM 7.5 MG/DL (8.5-10.1); CHLORIDE 109 MMOL/L (99-107); CREATININE 2.63 MG/DL (0.60-1.10); GLUCOSE 114 MG/DL (70-104); POTASSIUM 3.6 MMOL/L (3.5-5.1); SODIUM 139 MMOL/L (135-145); TOTAL PROTEIN 5.6 G/DL (6.4-8.2); eCRCL 30 ML/MIN; eGFR 25 ML/MIN
[2023-11-17 12:11] LABS: ANISOCYTOSIS 3+; ELLIPTOCYTES 1+; PLATELET ESTIMATE NORMAL; TOTAL CELLS COUNTED 100
[2023-11-17 12:12] LABS: ACANTHOCYTES FEW
[2023-11-17 18:00] VITALS: BP 114/72; PULSE 100; RESP 16; TEMP 98.4; O2SAT 95
[2023-11-17 22:00] VITALS: BP 115/71; PULSE 102; RESP 18; TEMP 98.6; O2SAT 94
[2023-11-18 06:00] VITALS: BP 110/67; PULSE 92; RESP 18; TEMP 98.6; O2SAT 96
[2023-11-18 08:55] VITALS: RESP 20
[2023-11-18 09:07] LABS: ISTAT CREATININE 1.1 mg/dL (0.8-1.3); ISTAT IONIZED CALCIUM 1.02 mmol/L (1.03-1.32); ISTAT K 2.7 mmol/L (3.5-5.1)
[2023-11-18 09:08] LABS: ISTAT HGB 9.9 g/dl (14.0-17.9)
[2023-11-18 09:09] LABS: ISTAT K CONFIRMATION 2.8 mmol/L
[2023-11-18 10:00] VITALS: BP 110/73; PULSE 115; RESP 18; TEMP 97.8; O2SAT 92
[2023-11-18 11:58] LABS: BASOPHILS # (AUTO) 0.2 X10'3 (0-0.2); BASOPHILS % (AUTO) 0.9 % (0-1); EOSINOPHILS # (AUTO) 0.2 X10'3 (0-0.9); EOSINOPHILS % (AUTO) 1.1 % (0-6); HEMOGLOBIN 8.4 g/dl (14.0-17.9); LYMPHOCYTES # (AUTO) 0.9 X10'3 (1.1-4.8); LYMPHOCYTES % (AUTO) 5.4 % (21-51); MEAN CORPUSCULAR HEMOGLOBIN 27.7 PG (27.0-31.0); MEAN CORPUSCULAR HGB CONC 31.2 g/dL (33.0-36.5); MEAN CORPUSCULAR VOLUME 88.9 FL (78-98); MEAN PLATELET VOLUME 7.4 FL (7.4-10.4); MONOCYTES # (AUTO) 0.8 X10'3 (0-0.9); MONOCYTES % (AUTO) 4.6 % (2-12); NEUTROPHILS # (AUTO) 14.6 X10'3 (1.8-7.7); PLATELET COUNT 238 X10'3 (140-440); RED BLOOD COUNT 3.03 X10'6 (4.70-6.10); RED CELL DISTRIBUTION WIDTH 22.2 % (11.5-14.5); WHITE BLOOD COUNT 16.6 X10'3 (4.5-11.0)
[2023-11-18 12:27] LABS: ANISOCYTOSIS 3+; ELLIPTOCYTES 1+; PLATELET ESTIMATE NORMAL; TOTAL CELLS COUNTED 100
[2023-11-18 12:28] LABS: ACANTHOCYTES FEW; ALANINE AMINOTRANSFERASE 9 U/L (12-78); ALBUMIN/GLOBULIN RATIO 0.6 (1.1-1.5); ALKALINE PHOSPHATASE 69 IU/L (46-116); ANION GAP 7 (8-16); ASPARTATE AMINO TRANSFERASE 14 U/L (10-37); BILIRUBIN,TOTAL 0.4 MG/DL (0.1-1.0); BLOOD UREA NITROGEN 24 MG/DL (7-18); BUN/CREATININE RATIO 8.8 (10.0-20.0); CALCIUM 7.3 MG/DL (8.5-10.1); CHLORIDE 109 MMOL/L (99-107); CREATININE 2.72 MG/DL (0.60-1.10); GLUCOSE 222 MG/DL (70-104); POTASSIUM 3.7 MMOL/L (3.5-5.1); SODIUM 139 MMOL/L (135-145); TEAR DROP CELLS FEW; TOTAL CARBON DIOXIDE 22.9 MMOL/L (24-32); TOTAL PROTEIN 5.4 G/DL (6.4-8.2); eCRCL 29 ML/MIN; eGFR 24 ML/MIN
[2023-11-18 18:00] VITALS: BP 109/75; PULSE 87; RESP 16; TEMP 98.8; O2SAT 91
[2023-11-18 22:00] VITALS: BP 115/71; PULSE 102; RESP 18; TEMP 98.6; O2SAT 94
[2023-11-19 06:00] VITALS: BP 117/68; PULSE 91; RESP 18; TEMP 98; O2SAT 94
[2023-11-19 09:44] LABS: BASOPHILS # (AUTO) 0.1 X10'3 (0-0.2); BASOPHILS % (AUTO) 0.4 % (0-1); EOSINOPHILS # (AUTO) 0.3 X10'3 (0-0.9); EOSINOPHILS % (AUTO) 1.4 % (0-6); HEMOGLOBIN 8.2 g/dl (14.0-17.9); LYMPHOCYTES % (AUTO) 4.5 % (21-51); MEAN CORPUSCULAR HEMOGLOBIN 26.9 PG (27.0-31.0); MEAN CORPUSCULAR HGB CONC 30.4 g/dL (33.0-36.5); MEAN CORPUSCULAR VOLUME 88.4 FL (78-98); MEAN PLATELET VOLUME 7.3 FL (7.4-10.4); MONOCYTES # (AUTO) 1.3 X10'3 (0-0.9); NEUTROPHILS # (AUTO) 19.5 X10'3 (1.8-7.7); NEUTROPHILS % (AUTO) 87.7 % (42-75); PLATELET COUNT 279 X10'3 (140-440); RED BLOOD COUNT 3.05 X10'6 (4.70-6.10); RED CELL DISTRIBUTION WIDTH 22.2 % (11.5-14.5); WHITE BLOOD COUNT 22.2 X10'3 (4.5-11.0)
[2023-11-19 10:06] LABS: ALANINE AMINOTRANSFERASE 11 U/L (12-78); ALBUMIN/GLOBULIN RATIO 0.6 (1.1-1.5); ALKALINE PHOSPHATASE 65 IU/L (46-116); ANION GAP 8 (8-16); ASPARTATE AMINO TRANSFERASE 24 U/L (10-37); BILIRUBIN,TOTAL 0.3 MG/DL (0.1-1.0); BLOOD UREA NITROGEN 23 MG/DL (7-18); BUN/CREATININE RATIO 9.2 (10.0-20.0); CALCIUM 7.6 MG/DL (8.5-10.1); CHLORIDE 111 MMOL/L (99-107); CREATININE 2.49 MG/DL (0.60-1.10); GLUCOSE 126 MG/DL (70-104); POTASSIUM 3.6 MMOL/L (3.5-5.1); SODIUM 141 MMOL/L (135-145); TOTAL CARBON DIOXIDE 21.6 MMOL/L (24-32); TOTAL PROTEIN 5.2 G/DL (6.4-8.2); eCRCL 31 ML/MIN; eGFR 27 ML/MIN
[2023-11-19] MEDS ORDERED: VANCOMYCIN 750MG IV in NS 250 ML IV SCH ×2 (11:51→12:00)
[2023-11-19] MEDS: vancomycin/NS 1 GM ADD-VANTAGE 250 ML IV SCH (13:58)
[2023-11-19 18:00] VITALS: BP 102/61; PULSE 99; RESP 16; TEMP 98.3; O2SAT 94
[2023-11-19 22:00] VITALS: BP 98/66; PULSE 87; RESP 14; TEMP 98.9; O2SAT 94
[2023-11-20] MEDS ORDERED: VANCOMYCIN LEVEL IV ONE (02:30)
[2023-11-20 06:00] VITALS: BP 116/75; PULSE 93; RESP 20; TEMP 98.6; O2SAT 94
[2023-11-20 07:03] LABS: BASOPHILS # (AUTO) 0.1 X10'3 (0-0.2); BASOPHILS % (AUTO) 0.5 % (0-1); EOSINOPHILS # (AUTO) 0.3 X10'3 (0-0.9); EOSINOPHILS % (AUTO) 1.3 % (0-6); HEMATOCRIT 27.2 % (42.0-52.0); HEMOGLOBIN 8.4 g/dl (14.0-17.9); LYMPHOCYTES # (AUTO) 1.1 X10'3 (1.1-4.8); LYMPHOCYTES % (AUTO) 5.1 % (21-51); MEAN CORPUSCULAR HEMOGLOBIN 27.3 PG (27.0-31.0); MEAN CORPUSCULAR HGB CONC 30.8 g/dL (33.0-36.5); MEAN CORPUSCULAR VOLUME 88.5 FL (78-98); MEAN PLATELET VOLUME 7.3 FL (7.4-10.4); MONOCYTES # (AUTO) 1.6 X10'3 (0-0.9); MONOCYTES % (AUTO) 7.2 % (2-12); NEUTROPHILS # (AUTO) 19.5 X10'3 (1.8-7.7); NEUTROPHILS % (AUTO) 85.9 % (42-75); PLATELET COUNT 342 X10'3 (140-440); RED BLOOD COUNT 3.07 X10'6 (4.70-6.10); RED CELL DISTRIBUTION WIDTH 21.4 % (11.5-14.5); WHITE BLOOD COUNT 22.7 X10'3 (4.5-11.0)
[2023-11-20 07:09] LABS: ALANINE AMINOTRANSFERASE 9 U/L (12-78); ALBUMIN/GLOBULIN RATIO 0.6 (1.1-1.5); ALKALINE PHOSPHATASE 69 IU/L (46-116); ANION GAP 8 (8-16); ASPARTATE AMINO TRANSFERASE 9 U/L (10-37); BILIRUBIN,TOTAL 0.3 MG/DL (0.1-1.0); BLOOD UREA NITROGEN 21 MG/DL (7-18); BUN/CREATININE RATIO 8.4 (10.0-20.0); CALCIUM 7.4 MG/DL (8.5-10.1); CHLORIDE 109 MMOL/L (99-107); GLUCOSE 118 MG/DL (70-104); SODIUM 140 MMOL/L (135-145); TOTAL CARBON DIOXIDE 22.6 MMOL/L (24-32); TOTAL PROTEIN 5.4 G/DL (6.4-8.2); eCRCL 31 ML/MIN; eGFR 26 ML/MIN
[2023-11-20 10:00] VITALS: BP 108/68; PULSE 90; RESP 16; TEMP 98.5; O2SAT 92
[2023-11-20] MEDS: proCHLORperazine 10 MG/2 ml inj IV PRN (14:19)
[2023-11-20 18:00] VITALS: BP 99/63; PULSE 95; RESP 16; TEMP 98.6; O2SAT 94
[2023-11-20 20:00] VITALS: O2SAT 95
[2023-11-20 22:00] VITALS: BP 88/60; PULSE 107; RESP 16; TEMP 98.4; O2SAT 93
[2023-11-21 06:33] LABS: BASOPHILS # (AUTO) 0.2 X10'3 (0-0.2); BASOPHILS % (AUTO) 0.7 % (0-1); EOSINOPHILS # (AUTO) 0.3 X10'3 (0-0.9); EOSINOPHILS % (AUTO) 1.4 % (0-6); HEMATOCRIT 24.4 % (42.0-52.0); HEMOGLOBIN 7.5 g/dl (14.0-17.9); LYMPHOCYTES # (AUTO) 1.1 X10'3 (1.1-4.8); LYMPHOCYTES % (AUTO) 5.5 % (21-51); MEAN CORPUSCULAR HEMOGLOBIN 27.3 PG (27.0-31.0); MEAN CORPUSCULAR HGB CONC 30.9 g/dL (33.0-36.5); MEAN CORPUSCULAR VOLUME 88.5 FL (78-98); MEAN PLATELET VOLUME 7.3 FL (7.4-10.4); MONOCYTES # (AUTO) 1.5 X10'3 (0-0.9); MONOCYTES % (AUTO) 7.1 % (2-12); NEUTROPHILS # (AUTO) 17.5 X10'3 (1.8-7.7); NEUTROPHILS % (AUTO) 85.3 % (42-75); PLATELET COUNT 349 X10'3 (140-440); RED BLOOD COUNT 2.76 X10'6 (4.70-6.10); RED CELL DISTRIBUTION WIDTH 21.6 % (11.5-14.5); WHITE BLOOD COUNT 20.6 X10'3 (4.5-11.0)
[2023-11-21 06:45] VITALS: BP 99/59; PULSE 102; RESP 22; TEMP 98.4; O2SAT 91
[2023-11-21 06:51] LABS: ALANINE AMINOTRANSFERASE 9 U/L (12-78); ALBUMIN/GLOBULIN RATIO 0.6 (1.1-1.5); ALKALINE PHOSPHATASE 65 IU/L (46-116); ANION GAP 8 (8-16); ASPARTATE AMINO TRANSFERASE 14 U/L (10-37); BILIRUBIN,TOTAL 0.3 MG/DL (0.1-1.0); BLOOD UREA NITROGEN 19 MG/DL (7-18); BUN/CREATININE RATIO 8.1 (10.0-20.0); CALCIUM 6.8 MG/DL (8.5-10.1); CHLORIDE 110 MMOL/L (99-107); CREATININE 2.35 MG/DL (0.60-1.10); GLUCOSE 143 MG/DL (70-104); SODIUM 139 MMOL/L (135-145); TOTAL CARBON DIOXIDE 21.1 MMOL/L (24-32); TOTAL PROTEIN 5.2 G/DL (6.4-8.2); eCRCL 33 ML/MIN; eGFR 28 ML/MIN
[2023-11-21 06:52] LABS: POTASSIUM 3.7 MMOL/L (3.5-5.1)
[2023-11-21 07:00] LABS: PLATELET ESTIMATE NORMAL; TOTAL CELLS COUNTED 100
[2023-11-21 07:01] LABS: ANISOCYTOSIS 3+; BURR CELLS FEW; HYPOCHROMASIA 1+
[2023-11-21 07:02] LABS: ELLIPTOCYTES FEW; TEAR DROP CELLS FEW
[2023-11-21 10:00] VITALS: BP 101/49; PULSE 111; RESP 15; TEMP 98.7; O2SAT 93
[2023-11-21] MEDS ORDERED: Dextrose 10%-water IV solution 1,000 ML IV PRN (17:05)
[2023-11-21] MEDS ORDERED: magnesium 2GM in 50ml NS 50 ML IV PRN (17:05)
[2023-11-21] MEDS ORDERED: magnesium Cl slow-release 64mg tablet PO PRN (17:05)
[2023-11-21 18:00] VITALS: BP 99/67; PULSE 86; RESP 16; TEMP 97.5; O2SAT 94
[2023-11-21 20:00] VITALS: RESP 20; O2SAT 95
[2023-11-21 20:29] LABS: ALANINE AMINOTRANSFERASE 10 U/L (12-78); ALBUMIN/GLOBULIN RATIO 0.6 (1.1-1.5); ALKALINE PHOSPHATASE 68 IU/L (46-116); ANION GAP 10 (8-16); ASPARTATE AMINO TRANSFERASE 8 U/L (10-37); BILIRUBIN,TOTAL 0.3 MG/DL (0.1-1.0); BLOOD UREA NITROGEN 18 MG/DL (7-18); BUN/CREATININE RATIO 7.2 (10.0-20.0); CALCIUM 7.4 MG/DL (8.5-10.1); CHLORIDE 109 MMOL/L (99-107); GLUCOSE 130 MG/DL (70-104); MAGNESIUM 1.1 MG/DL (1.5-2.4); POTASSIUM 3.2 MMOL/L (3.5-5.1); PREALBUMIN 12.4 MG/DL (19-36); SODIUM 139 MMOL/L (135-145); TOTAL CARBON DIOXIDE 20.3 MMOL/L (24-32); TOTAL PROTEIN 5.3 G/DL (6.4-8.2); TRIGLYCERIDES 89 MG/DL (20-135); eCRCL 31 ML/MIN; eGFR 26 ML/MIN
[2023-11-21 22:00] VITALS: BP 97/58; PULSE 100; RESP 20; TEMP 98.7; O2SAT 94
[2023-11-21] MEDS: fat emulsion 20% inj. 100 ML IV SCH (22:40)
[2023-11-22 06:34] LABS: BASOPHILS # (AUTO) 0.1 X10'3 (0-0.2); BASOPHILS % (AUTO) 0.3 % (0-1); EOSINOPHILS # (AUTO) 0.3 X10'3 (0-0.9); EOSINOPHILS % (AUTO) 1.5 % (0-6); HEMATOCRIT 23.2 % (42.0-52.0); HEMOGLOBIN 7.3 g/dl (14.0-17.9); LYMPHOCYTES # (AUTO) 0.7 X10'3 (1.1-4.8); LYMPHOCYTES % (AUTO) 3.2 % (21-51); MEAN CORPUSCULAR HGB CONC 31.6 g/dL (33.0-36.5); MEAN CORPUSCULAR VOLUME 88.6 FL (78-98); MONOCYTES # (AUTO) 1.3 X10'3 (0-0.9); MONOCYTES % (AUTO) 5.8 % (2-12); NEUTROPHILS # (AUTO) 20.3 X10'3 (1.8-7.7); NEUTROPHILS % (AUTO) 89.2 % (42-75); PLATELET COUNT 350 X10'3 (140-440); RED BLOOD COUNT 2.61 X10'6 (4.70-6.10); RED CELL DISTRIBUTION WIDTH 21.3 % (11.5-14.5); WHITE BLOOD COUNT 22.8 X10'3 (4.5-11.0)
[2023-11-22 06:49] LABS: ALANINE AMINOTRANSFERASE 9 U/L (12-78); ALBUMIN 1.9 G/DL (3.4-5.0); ALBUMIN/GLOBULIN RATIO 0.6 (1.1-1.5); ALKALINE PHOSPHATASE 65 IU/L (46-116); ANION GAP 8 (8-16); ASPARTATE AMINO TRANSFERASE 16 U/L (10-37); BILIRUBIN,TOTAL 0.3 MG/DL (0.1-1.0); BLOOD UREA NITROGEN 17 MG/DL (7-18); BUN/CREATININE RATIO 7.3 (10.0-20.0); CALCIUM 7.1 MG/DL (8.5-10.1); CHLORIDE 109 MMOL/L (99-107); CREATININE 2.34 MG/DL (0.60-1.10); GLUCOSE 278 MG/DL (70-104); PHOSPHORUS 2.4 MG/DL (2.3-4.5); PREALBUMIN 11.5 MG/DL (19-36); SODIUM 138 MMOL/L (135-145); TOTAL CARBON DIOXIDE 20.7 MMOL/L (24-32); eCRCL 33 ML/MIN; eGFR 28 ML/MIN
[2023-11-22 06:51] VITALS: BP 92/60; PULSE 110; RESP 18; TEMP 98.8; O2SAT 85
[2023-11-22 07:35] LABS: ANISOCYTOSIS 3+; PLATELET ESTIMATE NORMAL; TOTAL CELLS COUNTED 100
[2023-11-22 07:36] LABS: ELLIPTOCYTES FEW; TEAR DROP CELLS FEW
[2023-11-22 08:00] VITALS: RESP 14; O2SAT 85
[2023-11-22] MEDS: MVI, adult No.4 with vit. K 10 ML in dextrose 5% water 500ml 500 ML IV SCH (08:00)
[2023-11-22 10:00] VITALS: BP 99/75; PULSE 105; RESP 14; TEMP 97.8; O2SAT 85
[2023-11-22] MEDS: magnesium 4gm in 100ml NS 100 ML IV PRN (11:50)
[2023-11-22] MEDS: VANCOMYCIN LEVEL IV ONE (14:30)
[2023-11-22 18:00] VITALS: BP 96/63; PULSE 98; RESP 16; TEMP 98.9; O2SAT 91
[2023-11-22 20:00] VITALS: RESP 18; O2SAT 96
[2023-11-22 22:00] VITALS: BP 106/63; PULSE 92; RESP 20; TEMP 98.9; O2SAT 92
[2023-11-23] VITALS (7 sets, daily range): BP systolic 100–118; BP diastolic 63–70; PULSE 80–109; RESP 12–30; TEMP 98.6–98.9; O2SAT 83–97
[2023-11-23] MEDS: VANCOMYCIN LEVEL IV ONE (03:33)
[2023-11-23 06:15] LABS: MAGNESIUM 1.9 MG/DL (1.5-2.4); PHOSPHORUS 2.8 MG/DL (2.3-4.5); PREALBUMIN 9.6 MG/DL (19-36); VANCOMYCIN,RANDOM 28.8 ug/mL (20.0-30.0)
[2023-11-23] MEDS ORDERED: magnesium 4gm in 100ml NS 100 ML IV PRN (08:05)
[2023-11-23] MEDS ORDERED: magnesium 2GM in 50ml NS 50 ML IV PRN (08:05)
[2023-11-23 09:23] LABS: BASOPHILS # (AUTO) 0.1 X10'3 (0-0.2); BASOPHILS % (AUTO) 0.4 % (0-1); EOSINOPHILS # (AUTO) 0.3 X10'3 (0-0.9); EOSINOPHILS % (AUTO) 1.1 % (0-6); HEMOGLOBIN 7.4 g/dl (14.0-17.9); LYMPHOCYTES # (AUTO) 0.9 X10'3 (1.1-4.8); LYMPHOCYTES % (AUTO) 3.3 % (21-51); MEAN CORPUSCULAR HEMOGLOBIN 27.2 PG (27.0-31.0); MEAN CORPUSCULAR HGB CONC 30.7 g/dL (33.0-36.5); MEAN CORPUSCULAR VOLUME 88.7 FL (78-98); MEAN PLATELET VOLUME 6.9 FL (7.4-10.4); MONOCYTES # (AUTO) 1.7 X10'3 (0-0.9); MONOCYTES % (AUTO) 6.3 % (2-12); NEUTROPHILS # (AUTO) 23.8 X10'3 (1.8-7.7); NEUTROPHILS % (AUTO) 88.9 % (42-75); PLATELET COUNT 415 X10'3 (140-440); RED CELL DISTRIBUTION WIDTH 21.9 % (11.5-14.5)
[2023-11-23 09:26] LABS: WHITE BLOOD COUNT 26.7 X10'3 (4.5-11.0)
[2023-11-23 09:45] LABS: ANISOCYTOSIS 3+; ELLIPTOCYTES FEW; PLATELET ESTIMATE NORMAL; POIKILOCYTOSIS FEW; TOTAL CELLS COUNTED 100
[2023-11-23 09:49] LABS: ALBUMIN 1.9 G/DL (3.4-5.0); ALBUMIN/GLOBULIN RATIO 0.6 (1.1-1.5); ALKALINE PHOSPHATASE 73 IU/L (46-116); ANION GAP 7 (8-16); ASPARTATE AMINO TRANSFERASE 7 U/L (10-37); BILIRUBIN,TOTAL 0.4 MG/DL (0.1-1.0); BLOOD UREA NITROGEN 29 MG/DL (7-18); BUN/CREATININE RATIO 13.5 (10.0-20.0); CALCIUM 7.1 MG/DL (8.5-10.1); CHLORIDE 109 MMOL/L (99-107); CREATININE 2.15 MG/DL (0.60-1.10); GLUCOSE 139 MG/DL (70-104); POTASSIUM 3.9 MMOL/L (3.5-5.1); SODIUM 138 MMOL/L (135-145); TOTAL CARBON DIOXIDE 22.1 MMOL/L (24-32); TOTAL PROTEIN 5.3 G/DL (6.4-8.2); eCRCL 36 ML/MIN; eGFR 31 ML/MIN
[2023-11-23 10:04] LABS: ALANINE AMINOTRANSFERASE < 6 U/L (12-78)
[2023-11-23 10:47] LABS: MAGNESIUM 2.1 MG/DL (1.5-2.4)
[2023-11-23] MEDS: furosemide 40mg/4ml inj IV ONE (14:56)
[2023-11-23] MEDS: vancomycin inj 500 MG in normal saline 100ml IV soln 100 ML IV SCH (15:26)
[2023-11-23] MEDS: IOHEXOL 12MG/ML oral solution 500 ML BOTTLE PO ONE (15:59)
[2023-11-23] MEDS: furosemide 20 MG/2 ML vial IV ONE (16:17)
[2023-11-23] MEDS: K and/or MAG REPLACEMENT MC SCH (20:00)
[2023-11-23] MEDS: guaiFENesin ER 600mg tablet PO SCH (20:00)
[2023-11-23] MEDS: diatr meglu/diatrizoate 30ml oral sol.-(3 dose) bottle PO SCH (21:00)
[2023-11-24 06:00] VITALS: BP 100/60; PULSE 86; RESP 20; TEMP 98.6; O2SAT 97
[2023-11-24 10:00] VITALS: BP 124/76; PULSE 80; RESP 18; TEMP 98; O2SAT 99
[2023-11-24 12:13] LABS: ALANINE AMINOTRANSFERASE < 6 U/L (12-78); ALBUMIN 1.8 G/DL (3.4-5.0); ALBUMIN/GLOBULIN RATIO 0.5 (1.1-1.5); ALKALINE PHOSPHATASE 75 IU/L (46-116); ANION GAP 5 (8-16); ASPARTATE AMINO TRANSFERASE 5 U/L (10-37); BASOPHILS # (AUTO) 0.1 X10'3 (0-0.2); BASOPHILS % (AUTO) 0.5 % (0-1); BILIRUBIN,TOTAL 0.3 MG/DL (0.1-1.0); BLOOD UREA NITROGEN 43 MG/DL (7-18); BUN/CREATININE RATIO 21.6 (10.0-20.0); CALCIUM 7.2 MG/DL (8.5-10.1); CHLORIDE 107 MMOL/L (99-107); CREATININE 1.99 MG/DL (0.60-1.10); EOSINOPHILS # (AUTO) 0.5 X10'3 (0-0.9); EOSINOPHILS % (AUTO) 2.5 % (0-6); GLUCOSE 131 MG/DL (70-104); HEMATOCRIT 23.7 % (42.0-52.0); HEMOGLOBIN 7.3 g/dl (14.0-17.9); LYMPHOCYTES # (AUTO) 0.7 X10'3 (1.1-4.8); LYMPHOCYTES % (AUTO) 3.4 % (21-51); MEAN CORPUSCULAR HEMOGLOBIN 27.2 PG (27.0-31.0); MEAN CORPUSCULAR HGB CONC 30.9 g/dL (33.0-36.5); MEAN PLATELET VOLUME 6.8 FL (7.4-10.4); MONOCYTES # (AUTO) 1.2 X10'3 (0-0.9); MONOCYTES % (AUTO) 5.9 % (2-12); NEUTROPHILS # (AUTO) 17.2 X10'3 (1.8-7.7); NEUTROPHILS % (AUTO) 87.7 % (42-75); PLATELET COUNT 381 X10'3 (140-440); POTASSIUM 3.3 MMOL/L (3.5-5.1); PRO BRAIN NATRIURETIC PEPTIDE 9394 PG/ML (0-125); RED BLOOD COUNT 2.69 X10'6 (4.70-6.10); RED CELL DISTRIBUTION WIDTH 21.8 % (11.5-14.5); SODIUM 141 MMOL/L (135-145); TOTAL CARBON DIOXIDE 28.6 MMOL/L (24-32); TOTAL PROTEIN 5.4 G/DL (6.4-8.2); WHITE BLOOD COUNT 19.6 X10'3 (4.5-11.0); eCRCL 39 ML/MIN; eGFR 34 ML/MIN
[2023-11-24 12:40] LABS: TOTAL CELLS COUNTED 100
[2023-11-24 12:43] LABS: ANISOCYTOSIS 3+; ELLIPTOCYTES FEW; HYPOCHROMASIA 1+; PLATELET ESTIMATE NORMAL; POLYCHROMASIA FEW; TARGET CELLS 1+; TEAR DROP CELLS FEW
[2023-11-24] MEDS: nystatin 15 GM powder TP SCH (13:25)
[2023-11-24 18:00] VITALS: BP 86/53; PULSE 72; RESP 18; TEMP 98.4; O2SAT 96
[2023-11-24 20:00] VITALS: RESP 19; O2SAT 96
[2023-11-24 22:00] VITALS: BP 88/58; PULSE 78; RESP 19; TEMP 98; O2SAT 96
[2023-11-25 06:38] VITALS: BP 80/53; PULSE 92; RESP 16; TEMP 98.1; O2SAT 72
[2023-11-25 08:00] VITALS: RESP 16; O2SAT 92
[2023-11-25 10:00] VITALS: BP 81/55; PULSE 76; RESP 20; TEMP 97.8; O2SAT 90
[2023-11-25 13:49] LABS: ALANINE AMINOTRANSFERASE < 6 U/L (12-78); ALBUMIN 1.7 G/DL (3.4-5.0); ALBUMIN/GLOBULIN RATIO 0.5 (1.1-1.5); ALKALINE PHOSPHATASE 75 IU/L (46-116); ANION GAP 4 (8-16); ASPARTATE AMINO TRANSFERASE 6 U/L (10-37); BILIRUBIN,TOTAL 0.3 MG/DL (0.1-1.0); BLOOD UREA NITROGEN 54 MG/DL (7-18); CALCIUM 6.4 MG/DL (8.5-10.1); CHLORIDE 106 MMOL/L (99-107); GLUCOSE 122 MG/DL (70-104); POTASSIUM 3.3 MMOL/L (3.5-5.1); SODIUM 138 MMOL/L (135-145); TOTAL CARBON DIOXIDE 27.9 MMOL/L (24-32); eCRCL 43 ML/MIN; eGFR 39 ML/MIN
[2023-11-25] MEDS: POTASSIUM BICARB 20meq eff tab 20 MEQ TABLET.EFF PO PRN (16:29)
[2023-11-25 18:00] VITALS: BP 96/60; PULSE 78; RESP 12; TEMP 97.3; O2SAT 92
[2023-11-25 22:00] VITALS: BP 118/66; PULSE 77; RESP 16; TEMP 98.6; O2SAT 93
[2023-11-25 23:47] VITALS: BP 110/72; RESP 16; O2SAT 90
[2023-11-26 06:00] VITALS: BP 117/63; PULSE 84; RESP 16; TEMP 98.6; O2SAT 92
[2023-11-26 06:42] LABS: BASOPHILS # (AUTO) 0.2 X10'3 (0-0.2); BASOPHILS % (AUTO) 0.8 % (0-1); EOSINOPHILS # (AUTO) 0.5 X10'3 (0-0.9); EOSINOPHILS % (AUTO) 2.3 % (0-6); HEMATOCRIT 24.4 % (42.0-52.0); HEMOGLOBIN 7.6 g/dl (14.0-17.9); LYMPHOCYTES % (AUTO) 5.1 % (21-51); MEAN CORPUSCULAR HEMOGLOBIN 27.4 PG (27.0-31.0); MEAN CORPUSCULAR HGB CONC 31.3 g/dL (33.0-36.5); MEAN CORPUSCULAR VOLUME 87.4 FL (78-98); MEAN PLATELET VOLUME 7.1 FL (7.4-10.4); MONOCYTES # (AUTO) 1.5 X10'3 (0-0.9); MONOCYTES % (AUTO) 7.7 % (2-12); NEUTROPHILS # (AUTO) 16.6 X10'3 (1.8-7.7); NEUTROPHILS % (AUTO) 84.1 % (42-75); PLATELET COUNT 436 X10'3 (140-440); RED CELL DISTRIBUTION WIDTH 21.6 % (11.5-14.5); WHITE BLOOD COUNT 19.7 X10'3 (4.5-11.0)
[2023-11-26 07:06] LABS: ALANINE AMINOTRANSFERASE 7 U/L (12-78); ALBUMIN 1.8 G/DL (3.4-5.0); ALBUMIN/GLOBULIN RATIO 0.5 (1.1-1.5); ALKALINE PHOSPHATASE 84 IU/L (46-116); ANION GAP 6 (8-16); ASPARTATE AMINO TRANSFERASE 8 U/L (10-37); BILIRUBIN,TOTAL 0.3 MG/DL (0.1-1.0); BLOOD UREA NITROGEN 51 MG/DL (7-18); BUN/CREATININE RATIO 29.7 (10.0-20.0); CALCIUM 7.4 MG/DL (8.5-10.1); CHLORIDE 104 MMOL/L (99-107); CREATININE 1.72 MG/DL (0.60-1.10); GLUCOSE 123 MG/DL (70-104); POTASSIUM 3.8 MMOL/L (3.5-5.1); SODIUM 138 MMOL/L (135-145); TOTAL PROTEIN 5.3 G/DL (6.4-8.2); TRIGLYCERIDES 79 MG/DL (20-135); eCRCL 45 ML/MIN; eGFR 41 ML/MIN
[2023-11-26 08:27] LABS: PREALBUMIN 11.4 MG/DL (19-36)
[2023-11-26] MEDS ORDERED: fat emulsion IV bag 250 ML IV SCH (13:05)
[2023-11-26] MEDS: diphenhydrAMINE 50 mg/ml inj IV PRN (13:41)
[2023-11-26 13:56] LABS: ANISOCYTOSIS 3+; PLATELET ESTIMATE NORMAL; TOTAL CELLS COUNTED 100
[2023-11-26 13:57] LABS: BURR CELLS FEW; ELLIPTOCYTES FEW; POLYCHROMASIA FEW; SMUDGE CELLS 2+; TARGET CELLS FEW
[2023-11-26 13:58] LABS: TEAR DROP CELLS FEW
[2023-11-26] MEDS: VANCOMYCIN LEVEL IV ONE (15:35)
[2023-11-26 18:00] VITALS: BP 101/65; PULSE 77; RESP 16; TEMP 97.9; O2SAT 95
[2023-11-26] MEDS: FAT EMULSION IV SCH (21:00)
[2023-11-26 22:00] VITALS: BP 101/71; PULSE 79; RESP 16; TEMP 98.9; O2SAT 93
[2023-11-27 00:07] VITALS: BP 117/75; PULSE 96; O2SAT 92
[2023-11-27 06:00] VITALS: BP 91/55; PULSE 71; RESP 20; TEMP 98.4; O2SAT 97
[2023-11-27 06:37] LABS: BASOPHILS # (AUTO) 0.1 X10'3 (0-0.2); BASOPHILS % (AUTO) 0.7 % (0-1); EOSINOPHILS # (AUTO) 0.4 X10'3 (0-0.9); EOSINOPHILS % (AUTO) 1.8 % (0-6); HEMATOCRIT 24.4 % (42.0-52.0); HEMOGLOBIN 7.7 g/dl (14.0-17.9); LYMPHOCYTES # (AUTO) 0.9 X10'3 (1.1-4.8); LYMPHOCYTES % (AUTO) 4.7 % (21-51); MEAN CORPUSCULAR HEMOGLOBIN 27.5 PG (27.0-31.0); MEAN CORPUSCULAR HGB CONC 31.5 g/dL (33.0-36.5); MEAN CORPUSCULAR VOLUME 87.3 FL (78-98); MEAN PLATELET VOLUME 6.8 FL (7.4-10.4); MONOCYTES # (AUTO) 1.5 X10'3 (0-0.9); MONOCYTES % (AUTO) 7.6 % (2-12); NEUTROPHILS % (AUTO) 85.2 % (42-75); PLATELET COUNT 390 X10'3 (140-440); RED CELL DISTRIBUTION WIDTH 21.2 % (11.5-14.5)
[2023-11-27 06:58] LABS: ALANINE AMINOTRANSFERASE 8 U/L (12-78); ALBUMIN 1.7 G/DL (3.4-5.0); ALBUMIN/GLOBULIN RATIO 0.5 (1.1-1.5); ALKALINE PHOSPHATASE 113 IU/L (46-116); ANION GAP 5 (8-16); ASPARTATE AMINO TRANSFERASE 12 U/L (10-37); BILIRUBIN,TOTAL 0.4 MG/DL (0.1-1.0); BLOOD UREA NITROGEN 56 MG/DL (7-18); BUN/CREATININE RATIO 34.8 (10.0-20.0); CALCIUM 7.5 MG/DL (8.5-10.1); CHLORIDE 104 MMOL/L (99-107); CREATININE 1.61 MG/DL (0.60-1.10); GLUCOSE 137 MG/DL (70-104); POTASSIUM 3.3 MMOL/L (3.5-5.1); SODIUM 138 MMOL/L (135-145); TOTAL CARBON DIOXIDE 29.1 MMOL/L (24-32); TOTAL PROTEIN 5.2 G/DL (6.4-8.2); eCRCL 48 ML/MIN; eGFR 44 ML/MIN
[2023-11-27 07:31] LABS: ANISOCYTOSIS 3+; PLATELET ESTIMATE NORMAL; TOTAL CELLS COUNTED 100
[2023-11-27 07:32] LABS: HYPOCHROMASIA 1+; POLYCHROMASIA FEW
[2023-11-27 07:34] LABS: ELLIPTOCYTES FEW; TEAR DROP CELLS FEW
[2023-11-27 07:38] LABS: BURR CELLS FEW
[2023-11-27] MEDS: POTASSIUM BICARB 20meq eff tab 20 MEQ TABLET.EFF PO ONE (10:45)
[2023-11-27 11:00] VITALS: BP 103/60; PULSE 72; RESP 18; TEMP 98.5; O2SAT 95
[2023-11-27] MEDS: potassium Cl 20 mEq SR tablet PO STA (15:22)
[2023-11-27 18:00] VITALS: BP 101/67; PULSE 89; RESP 24; TEMP 98.6; O2SAT 95
[2023-11-27 20:40] VITALS: RESP 18; O2SAT 94
[2023-11-27 22:00] VITALS: BP 113/66; PULSE 87; RESP 16; TEMP 98.2; O2SAT 94
[2023-11-28 06:00] VITALS: BP 123/75; PULSE 84; RESP 15; TEMP 98.7; O2SAT 95
[2023-11-28 06:12] LABS: BASOPHILS # (AUTO) 0.1 X10'3 (0-0.2); BASOPHILS % (AUTO) 0.4 % (0-1); EOSINOPHILS # (AUTO) 0.3 X10'3 (0-0.9); EOSINOPHILS % (AUTO) 1.5 % (0-6); HEMATOCRIT 24.2 % (42.0-52.0); HEMOGLOBIN 7.6 g/dl (14.0-17.9); LYMPHOCYTES # (AUTO) 1.2 X10'3 (1.1-4.8); MEAN CORPUSCULAR HEMOGLOBIN 27.2 PG (27.0-31.0); MEAN CORPUSCULAR HGB CONC 31.4 g/dL (33.0-36.5); MEAN CORPUSCULAR VOLUME 86.7 FL (78-98); MEAN PLATELET VOLUME 7.1 FL (7.4-10.4); MONOCYTES # (AUTO) 1.7 X10'3 (0-0.9); MONOCYTES % (AUTO) 7.2 % (2-12); NEUTROPHILS % (AUTO) 85.9 % (42-75); PLATELET COUNT 390 X10'3 (140-440); RED BLOOD COUNT 2.79 X10'6 (4.70-6.10); RED CELL DISTRIBUTION WIDTH 20.9 % (11.5-14.5); WHITE BLOOD COUNT 23.3 X10'3 (4.5-11.0)
[2023-11-28 06:28] LABS: ALANINE AMINOTRANSFERASE 10 U/L (12-78); ALBUMIN 1.8 G/DL (3.4-5.0); ALBUMIN/GLOBULIN RATIO 0.6 (1.1-1.5); ALKALINE PHOSPHATASE 106 IU/L (46-116); ANION GAP 6 (8-16); ASPARTATE AMINO TRANSFERASE 10 U/L (10-37); BILIRUBIN,TOTAL 0.3 MG/DL (0.1-1.0); BLOOD UREA NITROGEN 53 MG/DL (7-18); BUN/CREATININE RATIO 38.1 (10.0-20.0); CALCIUM 7.3 MG/DL (8.5-10.1); CHLORIDE 104 MMOL/L (99-107); CREATININE 1.39 MG/DL (0.60-1.10); GLUCOSE 117 MG/DL (70-104); MAGNESIUM 1.9 MG/DL (1.5-2.4); POTASSIUM 3.7 MMOL/L (3.5-5.1); PREALBUMIN 14.1 MG/DL (19-36); SODIUM 140 MMOL/L (135-145); TOTAL CARBON DIOXIDE 29.6 MMOL/L (24-32); TOTAL PROTEIN 4.6 G/DL (6.4-8.2); TRIGLYCERIDES 102 MG/DL (20-135); eCRCL 56 ML/MIN; eGFR 52 ML/MIN
[2023-11-28 07:14] LABS: ANISOCYTOSIS 3+; ELLIPTOCYTES 1+; PLATELET ESTIMATE NORMAL; TOTAL CELLS COUNTED 100
[2023-11-28 07:15] LABS: TEAR DROP CELLS FEW
[2023-11-28 07:16] LABS: HYPOCHROMASIA 1+
[2023-11-28 20:10] VITALS: RESP 18; O2SAT 97
[2023-11-28 22:00] VITALS: BP 117/66; PULSE 78; RESP 17; TEMP 97.7; O2SAT 97
[2023-11-29 06:30] VITALS: BP 120/71; PULSE 86; RESP 17; TEMP 97.9; O2SAT 96
[2023-11-29 08:00] VITALS: RESP 18; O2SAT 96
[2023-11-29 10:00] VITALS: BP 105/62; PULSE 82; RESP 18; TEMP 98.2; O2SAT 95
[2023-11-29 18:00] VITALS: BP 100/64; PULSE 79; RESP 28; TEMP 97.5; O2SAT 97
[2023-11-29 20:30] VITALS: RESP 20; O2SAT 95
[2023-11-29 22:00] VITALS: BP 103/70; PULSE 85; RESP 12; TEMP 97.9; O2SAT 97
[2023-11-30 06:00] VITALS: BP 101/65; PULSE 76; RESP 16; TEMP 97.7; O2SAT 96
[2023-11-30 10:00] VITALS: BP 97/61; PULSE 72; RESP 18; TEMP 98.2; O2SAT 93
[2023-11-30 18:00] VITALS: BP 99/67; PULSE 95; RESP 30; TEMP 98.6; O2SAT 96
[2023-11-30 20:00] VITALS: RESP 30; O2SAT 96
[2023-11-30 20:17] LABS: ALANINE AMINOTRANSFERASE 18 U/L (12-78); ALBUMIN 2.5 G/DL (3.4-5.0); ALBUMIN/GLOBULIN RATIO 0.6 (1.1-1.5); ALKALINE PHOSPHATASE 164 IU/L (46-116); ANION GAP 6 (8-16); ASPARTATE AMINO TRANSFERASE 19 U/L (10-37); BASOPHILS # (AUTO) 0.4 X10'3 (0-0.2); BASOPHILS % (AUTO) 1.1 % (0-1); BILIRUBIN,TOTAL 0.4 MG/DL (0.1-1.0); BLOOD UREA NITROGEN 35 MG/DL (7-18); BUN/CREATININE RATIO 18.6 (10.0-20.0); CALCIUM 7.8 MG/DL (8.5-10.1); CHLORIDE 102 MMOL/L (99-107); CREATININE 1.88 MG/DL (0.60-1.10); EOSINOPHILS # (AUTO) 0.5 X10'3 (0-0.9); EOSINOPHILS % (AUTO) 1.7 % (0-6); GLUCOSE 118 MG/DL (70-104); HEMATOCRIT 29.3 % (42.0-52.0); HEMOGLOBIN 9.1 g/dl (14.0-17.9); LYMPHOCYTES # (AUTO) 1.8 X10'3 (1.1-4.8); LYMPHOCYTES % (AUTO) 5.8 % (21-51); MEAN CORPUSCULAR HEMOGLOBIN 27.4 PG (27.0-31.0); MEAN CORPUSCULAR VOLUME 88.5 FL (78-98); MEAN PLATELET VOLUME 7.5 FL (7.4-10.4); MONOCYTES # (AUTO) 2.1 X10'3 (0-0.9); MONOCYTES % (AUTO) 6.6 % (2-12); NEUTROPHILS # (AUTO) 26.9 X10'3 (1.8-7.7); NEUTROPHILS % (AUTO) 84.8 % (42-75); PLATELET COUNT 459 X10'3 (140-440); RED BLOOD COUNT 3.31 X10'6 (4.70-6.10); RED CELL DISTRIBUTION WIDTH 20.7 % (11.5-14.5); SODIUM 139 MMOL/L (135-145); TOTAL CARBON DIOXIDE 31.2 MMOL/L (24-32); TOTAL PROTEIN 6.5 G/DL (6.4-8.2); eCRCL 41 ML/MIN; eGFR 37 ML/MIN
[2023-11-30 20:44] LABS: WHITE BLOOD COUNT 31.7 X10'3 (4.5-11.0)
[2023-11-30 21:21] LABS: HEMOGLOBIN A1C 5.3 % (4.5-6.2)
[2023-11-30 22:00] VITALS: BP 96/63; PULSE 85; RESP 16; TEMP 98.2; O2SAT 95
[2023-12-01 00:37] LABS: ANISOCYTOSIS 3+; PLATELET ESTIMATE INCREASED; TOTAL CELLS COUNTED 100
[2023-12-01 00:39] LABS: ELLIPTOCYTES 1+
[2023-12-01 06:00] VITALS: BP 94/62; PULSE 86; RESP 18; TEMP 98.5; O2SAT 95
[2023-12-01] MEDS: normal saline 1000ml 1,000 ML IV SCH (07:30)
[2023-12-01 07:54] LABS: BASOPHILS # (AUTO) 0.1 X10'3 (0-0.2); BASOPHILS % (AUTO) 0.5 % (0-1); EOSINOPHILS # (AUTO) 0.3 X10'3 (0-0.9); EOSINOPHILS % (AUTO) 1.4 % (0-6); HEMATOCRIT 30.5 % (42.0-52.0); HEMOGLOBIN 9.3 g/dl (14.0-17.9); LYMPHOCYTES # (AUTO) 1.3 X10'3 (1.1-4.8); LYMPHOCYTES % (AUTO) 5.6 % (21-51); MEAN CORPUSCULAR HEMOGLOBIN 26.8 PG (27.0-31.0); MEAN CORPUSCULAR HGB CONC 30.5 g/dL (33.0-36.5); MEAN CORPUSCULAR VOLUME 87.8 FL (78-98); MEAN PLATELET VOLUME 7.5 FL (7.4-10.4); MONOCYTES # (AUTO) 0.8 X10'3 (0-0.9); MONOCYTES % (AUTO) 3.2 % (2-12); NEUTROPHILS % (AUTO) 89.3 % (42-75); PLATELET COUNT 406 X10'3 (140-440); RED BLOOD COUNT 3.47 X10'6 (4.70-6.10); RED CELL DISTRIBUTION WIDTH 20.7 % (11.5-14.5); WHITE BLOOD COUNT 23.5 X10'3 (4.5-11.0)
[2023-12-01 08:28] LABS: ALANINE AMINOTRANSFERASE 16 U/L (12-78); ALBUMIN 2.4 G/DL (3.4-5.0); ALBUMIN/GLOBULIN RATIO 0.6 (1.1-1.5); ALKALINE PHOSPHATASE 148 IU/L (46-116); ANION GAP 7 (8-16); ASPARTATE AMINO TRANSFERASE 15 U/L (10-37); BILIRUBIN,TOTAL 0.4 MG/DL (0.1-1.0); BLOOD UREA NITROGEN 33 MG/DL (7-18); BUN/CREATININE RATIO 19.4 (10.0-20.0); CALCIUM 7.7 MG/DL (8.5-10.1); CHLORIDE 103 MMOL/L (99-107); GLUCOSE 102 MG/DL (70-104); POTASSIUM 3.6 MMOL/L (3.5-5.1); SODIUM 140 MMOL/L (135-145); TOTAL CARBON DIOXIDE 29.8 MMOL/L (24-32); TOTAL PROTEIN 6.2 G/DL (6.4-8.2); eCRCL 46 ML/MIN; eGFR 41 ML/MIN
[2023-12-01 10:32] LABS: TOTAL CELLS COUNTED 100
[2023-12-01 10:33] LABS: ANISOCYTOSIS 3+; ELLIPTOCYTES FEW; PLATELET ESTIMATE NORMAL; TEAR DROP CELLS FEW
[2023-12-01 10:44] VITALS: BP 92/48; PULSE 108; RESP 14; TEMP 100.4; O2SAT 93
[2023-12-01] MEDS: normal saline 1000ml 1,000 ML IVB ONE (12:10)
[2023-12-01] MEDS: diatr meglu/diatrizoate 30ml oral sol.-(3 dose) bottle PO SCH (13:41)
[2023-12-01] MEDS ORDERED: diatr meglu/diatrizoate 30ml oral sol.-(3 dose) bottle PO SCH (15:00)
[2023-12-01 19:00] VITALS: BP 98/63; PULSE 113; RESP 20; TEMP 98.7; O2SAT 93
[2023-12-01] MEDS ORDERED: iohexol 300mg/ml 100ml inj. ONE (19:21)
[2023-12-01 20:00] VITALS: RESP 18; O2SAT 99
[2023-12-01 22:00] VITALS: BP_SYST 108; BP_SYST 144; BP_DIAS 80; BP_DIAS 85; PULSE 88; PULSE 91; RESP 16; RESP 18; TEMP 98.6; TEMP 98.7; O2SAT 96; O2SAT 99
[2023-12-01] MEDS: vancomycin/NS 1 GM ADD-VANTAGE 250 ML IV SCH (22:13)
[2023-12-02] MEDS: cefepime 1GM/NS ADD-VANTAGE 100 ML IV SCH (01:04)
[2023-12-02 06:00] VITALS: BP 103/65; PULSE 105; RESP 16; TEMP 97.3; O2SAT 99
[2023-12-02 06:16] LABS: BASOPHILS # (AUTO) 0.1 X10'3 (0-0.2); BASOPHILS % (AUTO) 0.4 % (0-1); EOSINOPHILS # (AUTO) 0.1 X10'3 (0-0.9); EOSINOPHILS % (AUTO) 0.2 % (0-6); HEMATOCRIT 28.5 % (42.0-52.0); HEMOGLOBIN 8.5 g/dl (14.0-17.9); LYMPHOCYTES # (AUTO) 0.7 X10'3 (1.1-4.8); LYMPHOCYTES % (AUTO) 1.8 % (21-51); MEAN CORPUSCULAR HEMOGLOBIN 26.8 PG (27.0-31.0); MEAN CORPUSCULAR HGB CONC 29.9 g/dL (33.0-36.5); MEAN CORPUSCULAR VOLUME 89.7 FL (78-98); MEAN PLATELET VOLUME 7.5 FL (7.4-10.4); MONOCYTES % (AUTO) 5.2 % (2-12); NEUTROPHILS % (AUTO) 92.4 % (42-75); PLATELET COUNT 358 X10'3 (140-440); RED BLOOD COUNT 3.18 X10'6 (4.70-6.10); RED CELL DISTRIBUTION WIDTH 20.4 % (11.5-14.5)
[2023-12-02 06:50] LABS: TOTAL CELLS COUNTED 100
[2023-12-02 06:51] LABS: PLATELET ESTIMATE NORMAL; TEAR DROP CELLS FEW
[2023-12-02 06:52] LABS: ANISOCYTOSIS 3+; ELLIPTOCYTES FEW; MICROCYTOSIS 1+; TOXIC GRANULATION 1+
[2023-12-02 07:33] LABS: ALANINE AMINOTRANSFERASE 12 U/L (12-78); ALBUMIN 2.2 G/DL (3.4-5.0); ALBUMIN/GLOBULIN RATIO 0.6 (1.1-1.5); ALKALINE PHOSPHATASE 130 IU/L (46-116); ANION GAP 10 (8-16); ASPARTATE AMINO TRANSFERASE 9 U/L (10-37); BILIRUBIN,TOTAL 0.5 MG/DL (0.1-1.0); BLOOD UREA NITROGEN 31 MG/DL (7-18); BUN/CREATININE RATIO 15.5 (10.0-20.0); CALCIUM 7.6 MG/DL (8.5-10.1); CHLORIDE 107 MMOL/L (99-107); GLUCOSE 129 MG/DL (70-104); MAGNESIUM 1.5 MG/DL (1.5-2.4); POTASSIUM 4.3 MMOL/L (3.5-5.1); SODIUM 142 MMOL/L (135-145); TOTAL CARBON DIOXIDE 24.9 MMOL/L (24-32); TOTAL PROTEIN 6.1 G/DL (6.4-8.2); TRIGLYCERIDES 89 MG/DL (20-135); eCRCL 39 ML/MIN; eGFR 34 ML/MIN
[2023-12-02 18:00] VITALS: BP 99/58; PULSE 111; RESP 16; TEMP 97.4; O2SAT 91
[2023-12-02 22:00] VITALS: BP 77/44; PULSE 68; RESP 16; TEMP 97.8; O2SAT 94
[2023-12-02 23:00] VITALS: BP 85/57
[2023-12-03] MEDS: cefepime 1GM/NS ADD-VANTAGE 100 ML IV SCH (00:28)
[2023-12-03 01:33] VITALS: BP 111/57
[2023-12-03 06:20] LABS: BASOPHILS # (AUTO) 0.3 X10'3 (0-0.2); BASOPHILS % (AUTO) 0.6 % (0-1); EOSINOPHILS # (AUTO) 0.1 X10'3 (0-0.9); EOSINOPHILS % (AUTO) 0.3 % (0-6); HEMATOCRIT 29.6 % (42.0-52.0); HEMOGLOBIN 8.9 g/dl (14.0-17.9); LYMPHOCYTES # (AUTO) 0.7 X10'3 (1.1-4.8); LYMPHOCYTES % (AUTO) 1.7 % (21-51); MEAN CORPUSCULAR HEMOGLOBIN 26.6 PG (27.0-31.0); MEAN CORPUSCULAR VOLUME 88.9 FL (78-98); MEAN PLATELET VOLUME 7.6 FL (7.4-10.4); MONOCYTES # (AUTO) 1.5 X10'3 (0-0.9); MONOCYTES % (AUTO) 3.5 % (2-12); NEUTROPHILS # (AUTO) 40.8 X10'3 (1.8-7.7); NEUTROPHILS % (AUTO) 93.9 % (42-75); PLATELET COUNT 382 X10'3 (140-440); RED BLOOD COUNT 3.33 X10'6 (4.70-6.10)
[2023-12-03 06:35] LABS: WHITE BLOOD COUNT 43.5 X10'3 (4.5-11.0)
[2023-12-03 06:41] LABS: ALANINE AMINOTRANSFERASE 12 U/L (12-78); ALBUMIN 2.3 G/DL (3.4-5.0); ALBUMIN/GLOBULIN RATIO 0.6 (1.1-1.5); ALKALINE PHOSPHATASE 122 IU/L (46-116); ANION GAP 7 (8-16); ASPARTATE AMINO TRANSFERASE 8 U/L (10-37); BILIRUBIN,TOTAL 0.6 MG/DL (0.1-1.0); BLOOD UREA NITROGEN 34 MG/DL (7-18); BUN/CREATININE RATIO 12.5 (10.0-20.0); CALCIUM 7.8 MG/DL (8.5-10.1); CHLORIDE 103 MMOL/L (99-107); CREATININE 2.72 MG/DL (0.60-1.10); GLUCOSE 109 MG/DL (70-104); POTASSIUM 4.7 MMOL/L (3.5-5.1); SODIUM 141 MMOL/L (135-145); TOTAL CARBON DIOXIDE 30.8 MMOL/L (24-32); TOTAL PROTEIN 6.4 G/DL (6.4-8.2); eCRCL 29 ML/MIN; eGFR 24 ML/MIN
[2023-12-03 07:50] LABS: ANISOCYTOSIS 2+; PLATELET ESTIMATE NORMAL; TOTAL CELLS COUNTED 100
[2023-12-03 07:53] LABS: ELLIPTOCYTES FEW; HYPOCHROMASIA 1+
[2023-12-03 07:54] LABS: POLYCHROMASIA FEW; TEAR DROP CELLS FEW
[2023-12-03] MEDS: VANCOMYCIN LEVEL IV ONE (09:30)
[2023-12-03] MEDS: diphenhydrAMINE 25mg capsule PO ONE (10:30)
[2023-12-03 11:01] LABS: VANCOMYCIN,TROUGH 34.7 ug/mL (10.0-20.0)
[2023-12-03] MEDS ORDERED: ZINC/COPPER/MANGANESE/SELENIUM 1 ML, chromic chloride inj. 10 MCG in AA 5%/CALCIUM/LYTE... IV SCH ×2 (16:35→20:00)
[2023-12-03] MEDS ORDERED: Dextrose 10%-water IV solution 1,000 ML IV PRN (16:35)
[2023-12-03 17:27] LABS: MAGNESIUM 1.6 MG/DL (1.5-2.4)
[2023-12-03 18:00] VITALS: BP 97/64; PULSE 109; RESP 16; TEMP 98.5; O2SAT 92
[2023-12-03] MEDS: HYDROcodone/acetaminophen 5mg/325mg tablet PO PRN (22:10)
[2023-12-04] VITALS (10 sets, daily range): BP systolic 94–114; BP diastolic 56–74; PULSE 89–121; RESP 16–21; TEMP 97.3–98.3; O2SAT 91–100
[2023-12-04] MEDS: diphenhydrAMINE 25mg capsule PO PRN (00:44)
[2023-12-04] MEDS: cefepime inj. 0.5 GM in normal saline 100ml IV soln 100 ML IV SCH (00:49)
[2023-12-04] MEDS: VANCOMYCIN LEVEL IV ONE (08:00)
[2023-12-04] MEDS: morphine 4 MG/ML inj SYRINge IV PRN (11:10)
[2023-12-04] MEDS ORDERED: ondansetron/PF 4mg/2ml inj IV PRN (15:35)
[2023-12-04] MEDS: ringers solution, lacted 1,000 ML IV SCH (15:35)
[2023-12-04] MEDS ORDERED: morphine 2 MG/ML inj. syringe IV PRN (15:35)
[2023-12-04] MEDS ORDERED: HYDROmorphone/PF 0.2 MG/ML SYRINGE IV PRN (15:35)
[2023-12-04] MEDS ORDERED: fentaNYL/PF 50MCG/1 ML 2ML syringe ONE (16:14)
[2023-12-04] MEDS ORDERED: midazolam 1 mg/ML 2ml injection ONE (16:14)
[2023-12-04] MEDS ORDERED: ondansetron/PF 4mg/2ml inj ONE (16:30)
[2023-12-04] MEDS ORDERED: sevoflurane 250ml liquid IH ONE (16:30)
[2023-12-04] MEDS ORDERED: propofol inj 20 ML IV ONE (16:57)
[2023-12-04] MEDS ORDERED: LIDOcaine 1%/PF 5ML 10 MG/ML VIAL ONE (16:57)
[2023-12-04] MEDS: NYSTATIN CREAM - 30GM TUBE TP ONE (17:00)
[2023-12-04] MEDS ORDERED: nystatin 15 GM ointment TP ONE (17:00)
[2023-12-04] MEDS: ZINC/COPPER/MANGANESE/SELENIUM 1 ML, chromic chloride inj. 10 MCG in AA 5%/CALCIUM/LYTE... IV SCH (19:54)
[2023-12-04] MEDS: fat emulsion 20% inj. 100 ML IV SCH (19:54)
[2023-12-05 06:00] VITALS: BP 94/67; PULSE 54; RESP 15; TEMP 98.9; O2SAT 95
[2023-12-05 06:15] LABS: ALANINE AMINOTRANSFERASE 12 U/L (12-78); ALBUMIN 2.1 G/DL (3.4-5.0); ALBUMIN/GLOBULIN RATIO 0.5 (1.1-1.5); ALKALINE PHOSPHATASE 121 IU/L (46-116); ANION GAP 9 (8-16); ASPARTATE AMINO TRANSFERASE 5 U/L (10-37); BILIRUBIN,TOTAL 0.4 MG/DL (0.1-1.0); BLOOD UREA NITROGEN 42 MG/DL (7-18); BUN/CREATININE RATIO 13.9 (10.0-20.0); CALCIUM 7.6 MG/DL (8.5-10.1); CHLORIDE 103 MMOL/L (99-107); CREATININE 3.02 MG/DL (0.60-1.10); GLUCOSE 152 MG/DL (70-104); MAGNESIUM 1.7 MG/DL (1.5-2.4); PHOSPHORUS 5.4 MG/DL (2.3-4.5); POTASSIUM 3.9 MMOL/L (3.5-5.1); SODIUM 138 MMOL/L (135-145); TOTAL CARBON DIOXIDE 26.5 MMOL/L (24-32); TOTAL PROTEIN 6.2 G/DL (6.4-8.2); TRIGLYCERIDES 135 MG/DL (20-135); eCRCL 26 ML/MIN; eGFR 21 ML/MIN
[2023-12-05 06:25] LABS: BASOPHILS # (AUTO) 0.2 X10'3 (0-0.2); BASOPHILS % (AUTO) 0.6 % (0-1); EOSINOPHILS # (AUTO) 0.3 X10'3 (0-0.9); EOSINOPHILS % (AUTO) 1.1 % (0-6); HEMATOCRIT 26.4 % (42.0-52.0); LYMPHOCYTES # (AUTO) 0.9 X10'3 (1.1-4.8); LYMPHOCYTES % (AUTO) 3.5 % (21-51); MEAN CORPUSCULAR HEMOGLOBIN 26.7 PG (27.0-31.0); MEAN CORPUSCULAR HGB CONC 30.3 g/dL (33.0-36.5); MEAN PLATELET VOLUME 7.5 FL (7.4-10.4); MONOCYTES # (AUTO) 1.4 X10'3 (0-0.9); MONOCYTES % (AUTO) 5.2 % (2-12); NEUTROPHILS # (AUTO) 24.2 X10'3 (1.8-7.7); NEUTROPHILS % (AUTO) 89.6 % (42-75); PLATELET COUNT 405 X10'3 (140-440); RED CELL DISTRIBUTION WIDTH 19.9 % (11.5-14.5)
[2023-12-05 07:08] LABS: PREALBUMIN 10.9 MG/DL (19-36)
[2023-12-05 07:10] LABS: ANISOCYTOSIS 2+; PLATELET ESTIMATE NORMAL; TOTAL CELLS COUNTED 100
[2023-12-05 07:13] LABS: ELLIPTOCYTES FEW; HYPOCHROMASIA 1+
[2023-12-05 07:14] LABS: GIANT PLATELET FEW
[2023-12-05 07:17] LABS: POLYCHROMASIA FEW; TEAR DROP CELLS FEW
[2023-12-05 10:00] VITALS: BP 99/70; PULSE 68; RESP 18; TEMP 98.4; O2SAT 92
[2023-12-05 18:00] VITALS: BP 116/71; PULSE 83; RESP 16; TEMP 97.6; O2SAT 96
[2023-12-05 20:00] VITALS: RESP 18; O2SAT 95
[2023-12-05] MEDS: midodrine 5mg tablet PO SCH (20:18)
[2023-12-05] MEDS: Melatonin 3mg tablet PO SCH (20:18)
[2023-12-05] MEDS: amiodarone 200mg tablet PO SCH (20:18)
[2023-12-06] MEDS: vancomycin/NS 1 GM ADD-VANTAGE 250 ML IV SCH (00:11)
[2023-12-06 03:32] LABS: BASOPHILS # (AUTO) 0.1 X10'3 (0-0.2); BASOPHILS % (AUTO) 0.5 % (0-1); EOSINOPHILS # (AUTO) 0.3 X10'3 (0-0.9); HEMATOCRIT 26.5 % (42.0-52.0); HEMOGLOBIN 7.9 g/dl (14.0-17.9); LYMPHOCYTES # (AUTO) 0.6 X10'3 (1.1-4.8); LYMPHOCYTES % (AUTO) 2.5 % (21-51); MEAN CORPUSCULAR HEMOGLOBIN 26.5 PG (27.0-31.0); MEAN CORPUSCULAR HGB CONC 29.8 g/dL (33.0-36.5); MEAN CORPUSCULAR VOLUME 88.9 FL (78-98); MEAN PLATELET VOLUME 6.9 FL (7.4-10.4); MONOCYTES # (AUTO) 1.4 X10'3 (0-0.9); MONOCYTES % (AUTO) 5.5 % (2-12); NEUTROPHILS # (AUTO) 22.3 X10'3 (1.8-7.7); NEUTROPHILS % (AUTO) 90.5 % (42-75); PLATELET COUNT 358 X10'3 (140-440); RED BLOOD COUNT 2.98 X10'6 (4.70-6.10); WHITE BLOOD COUNT 24.6 X10'3 (4.5-11.0)
[2023-12-06 03:47] LABS: ALANINE AMINOTRANSFERASE 10 U/L (12-78); ALBUMIN/GLOBULIN RATIO 0.5 (1.1-1.5); ALKALINE PHOSPHATASE 115 IU/L (46-116); ANION GAP 9 (8-16); ASPARTATE AMINO TRANSFERASE 5 U/L (10-37); BILIRUBIN,TOTAL 0.4 MG/DL (0.1-1.0); BLOOD UREA NITROGEN 46 MG/DL (7-18); BUN/CREATININE RATIO 16.7 (10.0-20.0); CALCIUM 7.4 MG/DL (8.5-10.1); CHLORIDE 105 MMOL/L (99-107); CREATININE 2.76 MG/DL (0.60-1.10); GLUCOSE 218 MG/DL (70-104); POTASSIUM 3.9 MMOL/L (3.5-5.1); SODIUM 139 MMOL/L (135-145); TOTAL CARBON DIOXIDE 25.4 MMOL/L (24-32); eCRCL 28 ML/MIN; eGFR 24 ML/MIN
[2023-12-06 04:12] LABS: ANISOCYTOSIS 2+; PLATELET ESTIMATE NORMAL; TOTAL CELLS COUNTED 100
[2023-12-06 04:13] LABS: ELLIPTOCYTES FEW; HYPOCHROMASIA 1+
[2023-12-06 04:14] LABS: POLYCHROMASIA FEW
[2023-12-06] MEDS ORDERED: vancomycin/NS 1 GM ADD-VANTAGE 250 ML IV PRN (07:25)
[2023-12-06] MEDS: cefepime inj. 0.5 GM in normal saline 100ml IV soln 100 ML IV SCH (07:46)
[2023-12-06 08:00] VITALS: RESP 16; O2SAT 95
[2023-12-06] MEDS: MVI, adult No.4 with vit. K 10 ML in dextrose 5% water 500ml 500 ML IV SCH (08:00)
[2023-12-06] MEDS ORDERED: NYSTATIN CREAM - 30GM TUBE TP SCH (08:00)
[2023-12-06] MEDS: fluconazole 100mg tablet PO SCH (09:00)
[2023-12-06] MEDS: duloxetine 30mg CAPSULE.DR PO SCH (09:02)
[2023-12-06 09:03] LABS: MAGNESIUM 1.7 MG/DL (1.5-2.4); PHOSPHORUS 5.4 MG/DL (2.3-4.5)
[2023-12-06 20:00] VITALS: RESP 18; O2SAT 97
[2023-12-06] MEDS: Melatonin 3mg tablet PO SCH (21:21)
[2023-12-06 22:00] VITALS: BP 109/79; PULSE 100; RESP 16; TEMP 97.4; O2SAT 97
[2023-12-07] MEDS: VANCOMYCIN LEVEL IV SCH (03:00)
[2023-12-07 03:44] LABS: ANION GAP 8 (8-16); BILIRUBIN,TOTAL 0.4 MG/DL (0.1-1.0); BLOOD UREA NITROGEN 55 MG/DL (7-18); BUN/CREATININE RATIO 24.8 (10.0-20.0); CALCIUM 7.3 MG/DL (8.5-10.1); CHLORIDE 106 MMOL/L (99-107); CREATININE 2.22 MG/DL (0.60-1.10); GLUCOSE 230 MG/DL (70-104); MAGNESIUM 1.6 MG/DL (1.5-2.4); PHOSPHORUS 5.5 MG/DL (2.3-4.5); POTASSIUM 4.1 MMOL/L (3.5-5.1); SODIUM 138 MMOL/L (135-145); TOTAL CARBON DIOXIDE 23.7 MMOL/L (24-32); eCRCL 35 ML/MIN; eGFR 30 ML/MIN
[2023-12-07 03:45] LABS: ALANINE AMINOTRANSFERASE 7 U/L (12-78); ALBUMIN/GLOBULIN RATIO 0.5 (1.1-1.5); ALKALINE PHOSPHATASE 99 IU/L (46-116); ASPARTATE AMINO TRANSFERASE 6 U/L (10-37); TOTAL PROTEIN 5.8 G/DL (6.4-8.2); VANCOMYCIN,TROUGH 22.9 ug/mL (10.0-20.0)
[2023-12-07 03:52] LABS: BASOPHILS # (AUTO) 0.1 X10'3 (0-0.2); BASOPHILS % (AUTO) 0.3 % (0-1); EOSINOPHILS # (AUTO) 0.3 X10'3 (0-0.9); EOSINOPHILS % (AUTO) 1.1 % (0-6); HEMATOCRIT 25.9 % (42.0-52.0); HEMOGLOBIN 7.7 g/dl (14.0-17.9); LYMPHOCYTES # (AUTO) 0.8 X10'3 (1.1-4.8); LYMPHOCYTES % (AUTO) 2.8 % (21-51); MEAN CORPUSCULAR HEMOGLOBIN 26.5 PG (27.0-31.0); MEAN CORPUSCULAR HGB CONC 29.7 g/dL (33.0-36.5); MEAN CORPUSCULAR VOLUME 89.2 FL (78-98); MEAN PLATELET VOLUME 7.3 FL (7.4-10.4); MONOCYTES # (AUTO) 1.7 X10'3 (0-0.9); NEUTROPHILS # (AUTO) 25.4 X10'3 (1.8-7.7); NEUTROPHILS % (AUTO) 89.8 % (42-75); PLATELET COUNT 345 X10'3 (140-440); RED CELL DISTRIBUTION WIDTH 19.8 % (11.5-14.5)
[2023-12-07 03:59] LABS: WHITE BLOOD COUNT 28.3 X10'3 (4.5-11.0)
[2023-12-07 07:27] VITALS: BP 118/84; PULSE 107; RESP 16; TEMP 97.6; O2SAT 95
[2023-12-07 08:00] VITALS: RESP 18
[2023-12-07] MEDS: fluconazole 100mg tablet PO SCH (09:26)
[2023-12-07 11:09] VITALS: BP 94/60; PULSE 98; RESP 20; TEMP 98.1; O2SAT 96
[2023-12-07] MEDS: metoclopramide 5 mg/ml inj IV PRN (13:30)
[2023-12-07 18:00] VITALS: BP 131/73; PULSE 63; RESP 18; TEMP 99.1; O2SAT 96
[2023-12-07] MEDS ORDERED: DEXTROSE 15 GM of carb/4 tabs (each vial/BOTTLE has 4 tablets) PO PRN ×2 (18:05)
[2023-12-07] MEDS ORDERED: glucagon, human recombinant 1mg kit SUBCUT PRN (18:05)
[2023-12-07] MEDS: MESSAGE TO PHARMACY PO ONE (18:20)
[2023-12-07 20:00] VITALS: RESP 18; O2SAT 96
[2023-12-07] MEDS: insulin regular, human U-100 3ml vial - multi-dose SQ SCH (21:19)
[2023-12-07] MEDS: insulin glargine (Lantus) pen - multi-dose SQ SCH (21:21)
[2023-12-08 06:16] LABS: BASOPHILS # (AUTO) 0.1 X10'3 (0-0.2); BASOPHILS % (AUTO) 0.4 % (0-1); EOSINOPHILS # (AUTO) 0.2 X10'3 (0-0.9); EOSINOPHILS % (AUTO) 0.6 % (0-6); HEMATOCRIT 24.7 % (42.0-52.0); HEMOGLOBIN 7.4 g/dl (14.0-17.9); LYMPHOCYTES # (AUTO) 0.9 X10'3 (1.1-4.8); LYMPHOCYTES % (AUTO) 2.5 % (21-51); MEAN CORPUSCULAR HEMOGLOBIN 26.8 PG (27.0-31.0); MEAN CORPUSCULAR HGB CONC 29.9 g/dL (33.0-36.5); MEAN CORPUSCULAR VOLUME 89.6 FL (78-98); MEAN PLATELET VOLUME 7.2 FL (7.4-10.4); MONOCYTES % (AUTO) 5.8 % (2-12); NEUTROPHILS # (AUTO) 31.8 X10'3 (1.8-7.7); NEUTROPHILS % (AUTO) 90.7 % (42-75); PLATELET COUNT 350 X10'3 (140-440); RED BLOOD COUNT 2.76 X10'6 (4.70-6.10); RED CELL DISTRIBUTION WIDTH 20.7 % (11.5-14.5)
[2023-12-08 06:42] VITALS: BP 111/73; PULSE 67; RESP 18; TEMP 97.3; O2SAT 92
[2023-12-08 06:54] LABS: ALANINE AMINOTRANSFERASE 8 U/L (12-78); ALBUMIN/GLOBULIN RATIO 0.5 (1.1-1.5); ALKALINE PHOSPHATASE 102 IU/L (46-116); ANION GAP 9 (8-16); ASPARTATE AMINO TRANSFERASE 6 U/L (10-37); BILIRUBIN,TOTAL 0.4 MG/DL (0.1-1.0); BLOOD UREA NITROGEN 63 MG/DL (7-18); BUN/CREATININE RATIO 32.3 (10.0-20.0); CALCIUM 7.5 MG/DL (8.5-10.1); CHLORIDE 107 MMOL/L (99-107); CREATININE 1.95 MG/DL (0.60-1.10); GLUCOSE 207 MG/DL (70-104); MAGNESIUM 1.7 MG/DL (1.5-2.4); PHOSPHORUS 4.2 MG/DL (2.3-4.5); POTASSIUM 4.2 MMOL/L (3.5-5.1); SODIUM 139 MMOL/L (135-145); TOTAL CARBON DIOXIDE 22.8 MMOL/L (24-32); TOTAL PROTEIN 5.8 G/DL (6.4-8.2); eCRCL 40 ML/MIN; eGFR 35 ML/MIN
[2023-12-08 07:29] LABS: ANISOCYTOSIS 3+; PLATELET ESTIMATE NORMAL; TOTAL CELLS COUNTED 100
[2023-12-08 07:30] LABS: ELLIPTOCYTES FEW; POIKILOCYTOSIS FEW
[2023-12-08 08:20] VITALS: RESP 18; O2SAT 92
[2023-12-08 10:00] VITALS: BP 111/64; PULSE 120; RESP 18; TEMP 98.9; O2SAT 96
[2023-12-08 12:01] LABS: C-REACTIVE PROTEIN 7.43 MG/DL (0.0-0.5)
[2023-12-08 12:47] LABS: THYROID STIMULATING HORMONE 0.94 ulU/ml (0.34-4.50)
[2023-12-08] MEDS: furosemide 20 MG/2 ML vial IV ONE (12:58)
[2023-12-08 14:26] LABS: APTT 35 SECONDS (22-32); INR 1.1 INR; PROTHROMBIN TIME 11.7 SECONDS (9.0-12.0)
[2023-12-08 14:33] VITALS: RESP 20
[2023-12-08 19:20] VITALS: BP 125/73; PULSE 95; RESP 16; TEMP 98; O2SAT 96
[2023-12-08] MEDS: furosemide 20 MG/2 ML vial IV SCH (20:04)
[2023-12-08] MEDS: heparin, porcine 5000 units/ml vial SQ SCH (20:05)
[2023-12-08] MEDS: diatr meglu/diatrizoate 30ml oral sol.-(3 dose) bottle PO SCH (20:54)
[2023-12-09 05:56] LABS: LYMPHOCYTES # (AUTO) 0.8 X10'3 (1.1-4.8)
[2023-12-09 05:58] LABS: BASOPHILS # (AUTO) 0.2 X10'3 (0-0.2); BASOPHILS % (AUTO) 0.6 % (0-1); EOSINOPHILS # (AUTO) 0.2 X10'3 (0-0.9); EOSINOPHILS % (AUTO) 0.5 % (0-6); HEMATOCRIT 22.8 % (42.0-52.0); LYMPHOCYTES % (AUTO) 2.7 % (21-51); MEAN CORPUSCULAR HEMOGLOBIN 27.1 PG (27.0-31.0); MEAN CORPUSCULAR HGB CONC 30.5 g/dL (33.0-36.5); MEAN CORPUSCULAR VOLUME 88.9 FL (78-98); MEAN PLATELET VOLUME 7.1 FL (7.4-10.4); MONOCYTES # (AUTO) 1.6 X10'3 (0-0.9); MONOCYTES % (AUTO) 5.3 % (2-12); NEUTROPHILS # (AUTO) 26.7 X10'3 (1.8-7.7); NEUTROPHILS % (AUTO) 90.9 % (42-75); PLATELET COUNT 330 X10'3 (140-440); RED BLOOD COUNT 2.57 X10'6 (4.70-6.10); RED CELL DISTRIBUTION WIDTH 20.7 % (11.5-14.5)
[2023-12-09 06:00] VITALS: BP 125/82; PULSE 111; RESP 21; TEMP 98.2; O2SAT 98
[2023-12-09 06:03] LABS: WHITE BLOOD COUNT 29.4 X10'3 (4.5-11.0)
[2023-12-09 06:12] LABS: ANION GAP 7 (8-16); BILIRUBIN,TOTAL 0.3 MG/DL (0.1-1.0); BLOOD UREA NITROGEN 69 MG/DL (7-18); BUN/CREATININE RATIO 36.5 (10.0-20.0); CALCIUM 7.6 MG/DL (8.5-10.1); CHLORIDE 107 MMOL/L (99-107); CREATININE 1.89 MG/DL (0.60-1.10); GLUCOSE 163 MG/DL (70-104); MAGNESIUM 1.5 MG/DL (1.5-2.4); PHOSPHORUS 4.6 MG/DL (2.3-4.5); POTASSIUM 3.6 MMOL/L (3.5-5.1); SODIUM 141 MMOL/L (135-145); TOTAL CARBON DIOXIDE 27.2 MMOL/L (24-32); TOTAL PROTEIN 5.8 G/DL (6.4-8.2); eCRCL 41 ML/MIN; eGFR 36 ML/MIN
[2023-12-09 06:13] LABS: ALANINE AMINOTRANSFERASE 9 U/L (12-78); ALBUMIN/GLOBULIN RATIO 0.5 (1.1-1.5); ALKALINE PHOSPHATASE 108 IU/L (46-116); ASPARTATE AMINO TRANSFERASE 6 U/L (10-37); PREALBUMIN 10.2 MG/DL (19-36); TRIGLYCERIDES 32 MG/DL (20-135)
[2023-12-09 08:50] LABS: NUCLEATED RED BLOOD CELLS 1 /100WBC (0-0); TOTAL CELLS COUNTED 100
[2023-12-09 08:54] LABS: ANISOCYTOSIS 3+; HYPOCHROMASIA 1+; PLATELET ESTIMATE NORMAL
[2023-12-09 08:57] VITALS: RESP 20; O2SAT 98
[2023-12-09 09:00] VITALS: BP 132/71; PULSE 99; O2SAT 98
[2023-12-09 10:00] VITALS: BP 136/82; PULSE 101; RESP 20; TEMP 98; O2SAT 97
[2023-12-09] MEDS ORDERED: iohexol 300mg/ml 100ml inj. ONE (14:42)
[2023-12-09 18:00] VITALS: BP 151/64; PULSE 98; RESP 20; TEMP 98.6; O2SAT 98
[2023-12-10] VITALS (8 sets, daily range): BP systolic 125–161; BP diastolic 61–71; PULSE 89–115; RESP 18–23; TEMP 98.1–98.6; O2SAT 92–99
[2023-12-10 06:37] LABS: BASOPHILS # (AUTO) 0.1 X10'3 (0-0.2); BASOPHILS % (AUTO) 0.5 % (0-1); EOSINOPHILS # (AUTO) 0.2 X10'3 (0-0.9); EOSINOPHILS % (AUTO) 0.9 % (0-6); HEMATOCRIT 22.7 % (42.0-52.0); LYMPHOCYTES # (AUTO) 0.7 X10'3 (1.1-4.8); LYMPHOCYTES % (AUTO) 3.1 % (21-51); MEAN CORPUSCULAR HEMOGLOBIN 26.6 PG (27.0-31.0); MEAN CORPUSCULAR HGB CONC 30.2 g/dL (33.0-36.5); MEAN CORPUSCULAR VOLUME 88.1 FL (78-98); MEAN PLATELET VOLUME 6.8 FL (7.4-10.4); MONOCYTES # (AUTO) 1.7 X10'3 (0-0.9); MONOCYTES % (AUTO) 7.8 % (2-12); NEUTROPHILS # (AUTO) 19.2 X10'3 (1.8-7.7); NEUTROPHILS % (AUTO) 87.7 % (42-75); PLATELET COUNT 346 X10'3 (140-440); RED BLOOD COUNT 2.58 X10'6 (4.70-6.10); RED CELL DISTRIBUTION WIDTH 20.2 % (11.5-14.5)
[2023-12-10 06:44] LABS: HEMOGLOBIN 6.9 g/dl (14.0-17.9)
[2023-12-10 06:54] LABS: ALANINE AMINOTRANSFERASE 10 U/L (12-78); ALBUMIN/GLOBULIN RATIO 0.5 (1.1-1.5); ALKALINE PHOSPHATASE 122 IU/L (46-116); ANION GAP 9 (8-16); ASPARTATE AMINO TRANSFERASE 7 U/L (10-37); BILIRUBIN,TOTAL 0.3 MG/DL (0.1-1.0); BLOOD UREA NITROGEN 72 MG/DL (7-18); CALCIUM 7.8 MG/DL (8.5-10.1); CHLORIDE 108 MMOL/L (99-107); GLUCOSE 98 MG/DL (70-104); SODIUM 148 MMOL/L (135-145); TOTAL CARBON DIOXIDE 31.2 MMOL/L (24-32); TOTAL PROTEIN 5.9 G/DL (6.4-8.2); eCRCL 43 ML/MIN; eGFR 39 ML/MIN
[2023-12-10 07:20] LABS: ANISOCYTOSIS 3+; PLATELET ESTIMATE NORMAL; TOTAL CELLS COUNTED 100
[2023-12-10 07:21] LABS: HYPOCHROMASIA 1+; POLYCHROMASIA FEW
[2023-12-10 07:22] LABS: ELLIPTOCYTES FEW
[2023-12-10 14:23] LABS: BF RBC COUNT 6525 /CU MM; BF WBC COUNT 1650 /CU MM (0-1000); BFAPPEAR CLOUDY; BFCOLOR YELLOW; BFSOURCE OTHER; BFVOLUME 38 ML; EOSINOPHILS,BODY FLUID 2 %; LYMPHOCYTES,BODY FLUID 4 %; MONOCYTES,BODY FLUID 1 %; NEUTROPHILS,BODY FLUID 93 %
[2023-12-11 06:00] VITALS: BP 120/66; PULSE 88; RESP 16; TEMP 98.6; O2SAT 98
[2023-12-11 07:56] LABS: ALANINE AMINOTRANSFERASE 15 U/L (12-78); ALBUMIN 1.9 G/DL (3.4-5.0); ALBUMIN/GLOBULIN RATIO 0.5 (1.1-1.5); ALKALINE PHOSPHATASE 154 IU/L (46-116); ANION GAP 9 (8-16); ASPARTATE AMINO TRANSFERASE 18 U/L (10-37); BILIRUBIN,TOTAL 0.3 MG/DL (0.1-1.0); BLOOD UREA NITROGEN 69 MG/DL (7-18); BUN/CREATININE RATIO 42.6 (10.0-20.0); CALCIUM 7.4 MG/DL (8.5-10.1); CHLORIDE 103 MMOL/L (99-107); CREATININE 1.62 MG/DL (0.60-1.10); GLUCOSE 75 MG/DL (70-104); SODIUM 149 MMOL/L (135-145); TOTAL CARBON DIOXIDE 37.4 MMOL/L (24-32); TOTAL PROTEIN 5.7 G/DL (6.4-8.2); eCRCL 48 ML/MIN; eGFR 44 ML/MIN
[2023-12-11 07:58] LABS: BASOPHILS # (AUTO) 0.1 X10'3 (0-0.2); BASOPHILS % (AUTO) 0.6 % (0-1); EOSINOPHILS # (AUTO) 0.2 X10'3 (0-0.9); LYMPHOCYTES # (AUTO) 0.7 X10'3 (1.1-4.8); LYMPHOCYTES % (AUTO) 3.9 % (21-51); MEAN CORPUSCULAR HEMOGLOBIN 25.9 PG (27.0-31.0); MEAN CORPUSCULAR HGB CONC 29.9 g/dL (33.0-36.5); MEAN CORPUSCULAR VOLUME 86.7 FL (78-98); MONOCYTES # (AUTO) 1.5 X10'3 (0-0.9); MONOCYTES % (AUTO) 8.3 % (2-12); NEUTROPHILS # (AUTO) 15.4 X10'3 (1.8-7.7); NEUTROPHILS % (AUTO) 86.2 % (42-75); PLATELET COUNT 341 X10'3 (140-440); RED BLOOD COUNT 2.53 X10'6 (4.70-6.10); RED CELL DISTRIBUTION WIDTH 20.6 % (11.5-14.5); WHITE BLOOD COUNT 17.9 X10'3 (4.5-11.0)
[2023-12-11 08:08] LABS: HEMOGLOBIN 6.6 g/dl (14.0-17.9)
[2023-12-11 08:20] LABS: POTASSIUM 2.6 MMOL/L (3.5-5.1)
[2023-12-11 09:40] VITALS: RESP 20
[2023-12-11] MEDS: meropenem inj 500 MG in normal saline 100ml IV soln 100 ML IV SCH (09:44)
[2023-12-11 10:00] VITALS: BP 150/64; PULSE 95; RESP 18; TEMP 98.7; O2SAT 97
[2023-12-11] MEDS: LORazepam 2 mg/ml vial IV ONE ×2 (10:15→11:10)
[2023-12-11] MEDS ORDERED: glucagon, human recombinant 1mg kit SUBCUT PRN (16:45)
[2023-12-11] MEDS ORDERED: dextrose 50%-water 50ml dispensing syringe IV PRN (16:45)
[2023-12-11] MEDS: dextrose 50%-water 50ml dispensing syringe IV ONE (16:47)
[2023-12-11 18:00] VITALS: BP 124/59; PULSE 91; RESP 18; TEMP 97.9; O2SAT 95
[2023-12-11 18:09] LABS: MAGNESIUM 1.4 MG/DL (1.5-2.4); PHOSPHORUS 3.5 MG/DL (2.3-4.5)
[2023-12-12] VITALS (7 sets, daily range): BP systolic 110–142; BP diastolic 56–88; PULSE 52–98; RESP 16–20; TEMP 97.5–98.3; O2SAT 93–97
[2023-12-12 01:48] LABS: MAGNESIUM 1.3 MG/DL (1.5-2.4); PHOSPHORUS 3.9 MG/DL (2.3-4.5); PREALBUMIN 13.2 MG/DL (19-36)
[2023-12-12 01:50] LABS: POTASSIUM 2.8 MMOL/L (3.5-5.1)
[2023-12-12 07:25] LABS: BASOPHILS # (AUTO) 0.1 X10'3 (0-0.2); BASOPHILS % (AUTO) 0.5 % (0-1); EOSINOPHILS # (AUTO) 0.3 X10'3 (0-0.9); EOSINOPHILS % (AUTO) 1.3 % (0-6); HEMATOCRIT 25.8 % (42.0-52.0); LYMPHOCYTES # (AUTO) 0.9 X10'3 (1.1-4.8); LYMPHOCYTES % (AUTO) 4.5 % (21-51); MEAN CORPUSCULAR HGB CONC 31.1 g/dL (33.0-36.5); MEAN CORPUSCULAR VOLUME 86.7 FL (78-98); MEAN PLATELET VOLUME 6.9 FL (7.4-10.4); MONOCYTES # (AUTO) 1.8 X10'3 (0-0.9); MONOCYTES % (AUTO) 9.4 % (2-12); NEUTROPHILS # (AUTO) 16.5 X10'3 (1.8-7.7); NEUTROPHILS % (AUTO) 84.3 % (42-75); PLATELET COUNT 358 X10'3 (140-440); RED BLOOD COUNT 2.97 X10'6 (4.70-6.10); RED CELL DISTRIBUTION WIDTH 19.2 % (11.5-14.5); WHITE BLOOD COUNT 19.5 X10'3 (4.5-11.0)
[2023-12-12 11:08] LABS: TOTAL CELLS COUNTED 100
[2023-12-12 11:09] LABS: ANISOCYTOSIS 2+; ELLIPTOCYTES FEW; PLATELET ESTIMATE NORMAL; POLYCHROMASIA FEW; TEAR DROP CELLS FEW
[2023-12-12 11:10] LABS: HYPOCHROMASIA 1+; POIKILOCYTOSIS FEW; ROULEAUX 1+
[2023-12-12] MEDS ORDERED: magnesium 4gm in 100ml NS 100 ML IV PRN (15:45)
[2023-12-12] MEDS ORDERED: magnesium 2GM in 50ml NS 50 ML IV PRN (15:50)
[2023-12-12] MEDS: temazepam 15mg capsule PO PRN (17:46)
[2023-12-12] MEDS: acetaminophen 325mg tablet PO PRN (20:59)
[2023-12-13 08:00] VITALS: RESP 18; O2SAT 93
[2023-12-13 09:32] LABS: BASOPHILS # (AUTO) 0.1 X10'3 (0-0.2); BASOPHILS % (AUTO) 0.5 % (0-1); EOSINOPHILS # (AUTO) 0.2 X10'3 (0-0.9); EOSINOPHILS % (AUTO) 0.7 % (0-6); HEMATOCRIT 28.3 % (42.0-52.0); HEMOGLOBIN 8.5 g/dl (14.0-17.9); LYMPHOCYTES # (AUTO) 0.7 X10'3 (1.1-4.8); LYMPHOCYTES % (AUTO) 3.1 % (21-51); MEAN CORPUSCULAR HEMOGLOBIN 26.5 PG (27.0-31.0); MEAN CORPUSCULAR HGB CONC 30.1 g/dL (33.0-36.5); MEAN CORPUSCULAR VOLUME 87.9 FL (78-98); MONOCYTES # (AUTO) 2.5 X10'3 (0-0.9); MONOCYTES % (AUTO) 10.7 % (2-12); NEUTROPHILS # (AUTO) 19.8 X10'3 (1.8-7.7); PLATELET COUNT 346 X10'3 (140-440); RED BLOOD COUNT 3.22 X10'6 (4.70-6.10); RED CELL DISTRIBUTION WIDTH 19.7 % (11.5-14.5); WHITE BLOOD COUNT 23.3 X10'3 (4.5-11.0)
[2023-12-13 10:00] VITALS: BP 100/63; PULSE 55; RESP 18; TEMP 98.9; O2SAT 93
[2023-12-13 10:07] LABS: ALANINE AMINOTRANSFERASE 20 U/L (12-78); ALBUMIN 2.1 G/DL (3.4-5.0); ALBUMIN/GLOBULIN RATIO 0.5 (1.1-1.5); ALKALINE PHOSPHATASE 180 IU/L (46-116); ANION GAP 7 (8-16); ASPARTATE AMINO TRANSFERASE 15 U/L (10-37); BILIRUBIN,TOTAL 0.5 MG/DL (0.1-1.0); BLOOD UREA NITROGEN 72 MG/DL (7-18); CALCIUM 7.7 MG/DL (8.5-10.1); CHLORIDE 104 MMOL/L (99-107); CREATININE 1.47 MG/DL (0.60-1.10); GLUCOSE 119 MG/DL (70-104); POTASSIUM 3.7 MMOL/L (3.5-5.1); SODIUM 150 MMOL/L (135-145); TOTAL CARBON DIOXIDE 39.3 MMOL/L (24-32); TOTAL PROTEIN 6.2 G/DL (6.4-8.2); eCRCL 53 ML/MIN; eGFR 49 ML/MIN
[2023-12-13 10:24] LABS: ANISOCYTOSIS 2+; PLATELET ESTIMATE NORMAL; POIKILOCYTOSIS 1+; TOTAL CELLS COUNTED 100
[2023-12-13 10:25] LABS: HYPOCHROMASIA 1+; POLYCHROMASIA 1+; ROULEAUX 1+; SCHISTOCYTES FEW; TEAR DROP CELLS FEW
[2023-12-13] MEDS: metoclopramide 5 mg/ml inj IV SCH (10:25)
[2023-12-13 18:00] VITALS: BP 145/77; PULSE 60; RESP 18; TEMP 97.6; O2SAT 100
[2023-12-13 20:00] VITALS: RESP 18; O2SAT 96
[2023-12-13 22:00] VITALS: BP 128/75; PULSE 95; RESP 16; TEMP 97.6; O2SAT 91; O2SAT 96
[2023-12-14 06:00] VITALS: BP 116/73; PULSE 99; RESP 16; TEMP 97.4; O2SAT 95
[2023-12-14 06:27] LABS: BASOPHILS # (AUTO) 0.1 X10'3 (0-0.2); BASOPHILS % (AUTO) 0.6 % (0-1); EOSINOPHILS # (AUTO) 0.4 X10'3 (0-0.9); EOSINOPHILS % (AUTO) 2.4 % (0-6); HEMATOCRIT 26.3 % (42.0-52.0); HEMOGLOBIN 8.1 g/dl (14.0-17.9); LYMPHOCYTES # (AUTO) 0.9 X10'3 (1.1-4.8); LYMPHOCYTES % (AUTO) 5.2 % (21-51); MEAN CORPUSCULAR HEMOGLOBIN 27.2 PG (27.0-31.0); MEAN CORPUSCULAR HGB CONC 30.6 g/dL (33.0-36.5); MEAN CORPUSCULAR VOLUME 88.8 FL (78-98); MONOCYTES # (AUTO) 1.7 X10'3 (0-0.9); MONOCYTES % (AUTO) 9.4 % (2-12); NEUTROPHILS # (AUTO) 14.5 X10'3 (1.8-7.7); NEUTROPHILS % (AUTO) 82.4 % (42-75); PLATELET COUNT 332 X10'3 (140-440); RED BLOOD COUNT 2.97 X10'6 (4.70-6.10); RED CELL DISTRIBUTION WIDTH 19.6 % (11.5-14.5); WHITE BLOOD COUNT 17.6 X10'3 (4.5-11.0)
[2023-12-14 06:42] LABS: ALANINE AMINOTRANSFERASE 17 U/L (12-78); ALBUMIN 2.2 G/DL (3.4-5.0); ALBUMIN/GLOBULIN RATIO 0.5 (1.1-1.5); ALKALINE PHOSPHATASE 191 IU/L (46-116); ANION GAP 5 (8-16); ASPARTATE AMINO TRANSFERASE 14 U/L (10-37); BILIRUBIN,TOTAL 0.6 MG/DL (0.1-1.0); BLOOD UREA NITROGEN 74 MG/DL (7-18); CALCIUM 7.7 MG/DL (8.5-10.1); CHLORIDE 105 MMOL/L (99-107); CREATININE 1.51 MG/DL (0.60-1.10); POTASSIUM 3.2 MMOL/L (3.5-5.1); SODIUM 151 MMOL/L (135-145); TOTAL PROTEIN 6.4 G/DL (6.4-8.2); eCRCL 51 ML/MIN; eGFR 47 ML/MIN
[2023-12-14 06:44] LABS: GLUCOSE 19 MG/DL (70-104); TOTAL CARBON DIOXIDE 41.3 MMOL/L (24-32)
[2023-12-14 07:04] VITALS: RESP 16; O2SAT 95
[2023-12-14 07:49] LABS: ANISOCYTOSIS 2+; NUCLEATED RED BLOOD CELLS 1 /100WBC (0-0); PLATELET ESTIMATE NORMAL; TOTAL CELLS COUNTED 100
[2023-12-14 07:50] LABS: HYPOCHROMASIA 1+; POIKILOCYTOSIS 1+; POLYCHROMASIA FEW; TEAR DROP CELLS FEW
[2023-12-14 10:00] VITALS: BP 106/82; PULSE 95; RESP 18; TEMP 98.8; O2SAT 97
[2023-12-14 18:00] VITALS: BP 125/70; PULSE 104; RESP 19; TEMP 98.4; O2SAT 94
[2023-12-14 20:00] VITALS: RESP 19; O2SAT 94
[2023-12-14 22:00] VITALS: BP 131/80; PULSE 113; RESP 24; TEMP 98.5; O2SAT 93
[2023-12-15] VITALS (11 sets, daily range): BP systolic 113–131; BP diastolic 61–82; PULSE 69–114; RESP 16–21; TEMP 98.1–98.6; O2SAT 92–99
[2023-12-15 07:04] LABS: BASOPHILS # (AUTO) 0.1 X10'3 (0-0.2); BASOPHILS % (AUTO) 0.6 % (0-1); EOSINOPHILS # (AUTO) 0.2 X10'3 (0-0.9); EOSINOPHILS % (AUTO) 1.3 % (0-6); HEMATOCRIT 25.5 % (42.0-52.0); HEMOGLOBIN 7.6 g/dl (14.0-17.9); LYMPHOCYTES # (AUTO) 0.8 X10'3 (1.1-4.8); LYMPHOCYTES % (AUTO) 4.5 % (21-51); MEAN CORPUSCULAR HEMOGLOBIN 26.8 PG (27.0-31.0); MEAN CORPUSCULAR HGB CONC 29.8 g/dL (33.0-36.5); MEAN PLATELET VOLUME 7.3 FL (7.4-10.4); MONOCYTES # (AUTO) 1.7 X10'3 (0-0.9); MONOCYTES % (AUTO) 9.1 % (2-12); NEUTROPHILS # (AUTO) 15.5 X10'3 (1.8-7.7); NEUTROPHILS % (AUTO) 84.5 % (42-75); PLATELET COUNT 314 X10'3 (140-440); RED BLOOD COUNT 2.83 X10'6 (4.70-6.10); WHITE BLOOD COUNT 18.3 X10'3 (4.5-11.0)
[2023-12-15 07:09] LABS: ALANINE AMINOTRANSFERASE 18 U/L (12-78); ALBUMIN 2.1 G/DL (3.4-5.0); ALBUMIN/GLOBULIN RATIO 0.5 (1.1-1.5); ALKALINE PHOSPHATASE 207 IU/L (46-116); ANION GAP 6 (8-16); ASPARTATE AMINO TRANSFERASE 15 U/L (10-37); BILIRUBIN,TOTAL 0.5 MG/DL (0.1-1.0); BLOOD UREA NITROGEN 74 MG/DL (7-18); BUN/CREATININE RATIO 49.3 (10.0-20.0); CALCIUM 6.9 MG/DL (8.5-10.1); CHLORIDE 105 MMOL/L (99-107); GLUCOSE 117 MG/DL (70-104); MAGNESIUM 1.8 MG/DL (1.5-2.4); PHOSPHORUS 6.5 MG/DL (2.3-4.5); POTASSIUM 3.9 MMOL/L (3.5-5.1); SODIUM 154 MMOL/L (135-145); TOTAL PROTEIN 6.2 G/DL (6.4-8.2); eCRCL 52 ML/MIN; eGFR 48 ML/MIN
[2023-12-15 07:14] LABS: TOTAL CARBON DIOXIDE 42.8 MMOL/L (24-32)
[2023-12-15 08:05] LABS: ABG BASE EXCESS 15.1 mmol/L (-2.0-2.0); ABG OXYGEN SATURATION 95.5 % (94-97); ABG PCO2 (T) 103.2 mmHg (35.0-48.0); ABG PH (T) 7.257 (7.340-7.440); ABG PO2 (T) 87.7 mmHg (75.0-100.0); ALLEN'S TEST POSITIVE; FCOHb 1.1 % (0.0-3.9); FHHb 4.4 % (0.0-5.0); FMetHb 0.2 % (0.0-1.5); FO2Hb 94.3 % (94-97); MODE NASAL CANNULA; TOTAL HEMOGLOBIN 8.8 G/dl (14.0-17.9)
[2023-12-15 08:55] LABS: TOTAL CELLS COUNTED 100
[2023-12-15 09:00] LABS: ANISOCYTOSIS 2+; ELLIPTOCYTES FEW; HYPOCHROMASIA 1+; PLATELET ESTIMATE NORMAL; POLYCHROMASIA FEW; STOMATOCYTES FEW; TEAR DROP CELLS 1+
[2023-12-15 10:33] LABS: ABG BASE EXCESS 13.6 mmol/L (-2.0-2.0); ABG OXYGEN SATURATION 93.3 % (94-97); ABG PCO2 (T) 85.8 mmHg (35.0-48.0); ABG PH (T) 7.308 (7.340-7.440); ABG PO2 (T) 72.8 mmHg (75.0-100.0); ALLEN'S TEST POSITIVE; FCOHb 1.1 % (0.0-3.9); FHHb 6.6 % (0.0-5.0); FMetHb 0.1 % (0.0-1.5); FO2Hb 92.2 % (94-97); MODE MASK - BIPAP; RESPIRATORY RATE 18 b/min; TOTAL HEMOGLOBIN 8.3 G/dl (14.0-17.9)
[2023-12-15 15:40] LABS: ANION GAP 3 (8-16); BLOOD UREA NITROGEN 72 MG/DL (7-18); BUN/CREATININE RATIO 52.6 (10.0-20.0); CALCIUM 7.4 MG/DL (8.5-10.1); CHLORIDE 104 MMOL/L (99-107); CREATININE 1.37 MG/DL (0.60-1.10); GLUCOSE 190 MG/DL (70-104); POTASSIUM 3.9 MMOL/L (3.5-5.1); SODIUM 151 MMOL/L (135-145); eCRCL 57 ML/MIN; eGFR 53 ML/MIN
[2023-12-15 15:46] LABS: TOTAL CARBON DIOXIDE 43.8 MMOL/L (24-32)
[2023-12-15] MEDS: budesonide 0.5mg/2ml UD nebule IH SCH (20:43)
[2023-12-15] MEDS: ipratropium/albuterol 3ml nebule NEB PRN (20:43)
[2023-12-15] MEDS: diatr meglu/diatrizoate 30ml oral sol.-(3 dose) bottle PO SCH (21:16)
[2023-12-15] MEDS: furosemide 20 MG/2 ML vial IV SCH (21:17)
[2023-12-16] VITALS (14 sets, daily range): BP systolic 111–145; BP diastolic 57–87; PULSE 91–114; RESP 16–26; TEMP 97–98.3; O2SAT 91–99
[2023-12-16] MEDS: dextrose 50%-water 50ml dispensing syringe IV PRN (02:17)
[2023-12-16 08:56] LABS: ABG BASE EXCESS 15.1 mmol/L (-2.0-2.0); ABG HCO3 44.1 mmol/L (22.0-26.0); ABG OXYGEN SATURATION 97.3 % (94-97); ABG PH (T) 7.301 (7.340-7.440); ABG PO2 (T) 96.1 mmHg (75.0-100.0); ALLEN'S TEST POSITIVE; FCOHb 1.1 % (0.0-3.9); FHHb 2.7 % (0.0-5.0); FLOW 2 L/min; FMetHb 0.2 % (0.0-1.5); MODE NASAL CANNULA; PATIENT TEMPERATURE 36.5; TOTAL HEMOGLOBIN 8.7 G/dl (14.0-17.9)
[2023-12-16 10:20] LABS: BASOPHILS # (AUTO) 0.2 X10'3 (0-0.2); EOSINOPHILS # (AUTO) 0.2 X10'3 (0-0.9); EOSINOPHILS % (AUTO) 1.2 % (0-6); HEMATOCRIT 25.9 % (42.0-52.0); HEMOGLOBIN 7.6 g/dl (14.0-17.9); LYMPHOCYTES # (AUTO) 0.7 X10'3 (1.1-4.8); LYMPHOCYTES % (AUTO) 4.2 % (21-51); MEAN CORPUSCULAR HEMOGLOBIN 26.5 PG (27.0-31.0); MEAN CORPUSCULAR HGB CONC 29.5 g/dL (33.0-36.5); MEAN CORPUSCULAR VOLUME 89.7 FL (78-98); MEAN PLATELET VOLUME 7.3 FL (7.4-10.4); MONOCYTES # (AUTO) 1.3 X10'3 (0-0.9); MONOCYTES % (AUTO) 7.9 % (2-12); NEUTROPHILS # (AUTO) 14.2 X10'3 (1.8-7.7); NEUTROPHILS % (AUTO) 85.7 % (42-75); PLATELET COUNT 301 X10'3 (140-440); RED BLOOD COUNT 2.88 X10'6 (4.70-6.10); RED CELL DISTRIBUTION WIDTH 20.4 % (11.5-14.5); WHITE BLOOD COUNT 16.6 X10'3 (4.5-11.0)
[2023-12-16 11:06] LABS: TOTAL CELLS COUNTED 100
[2023-12-16 11:07] LABS: PLATELET ESTIMATE NORMAL
[2023-12-16 11:08] LABS: ANISOCYTOSIS 2+; ELLIPTOCYTES FEW; HYPOCHROMASIA 1+; TEAR DROP CELLS FEW
[2023-12-16 11:48] LABS: ALANINE AMINOTRANSFERASE 33 U/L (12-78); ALBUMIN 2.1 G/DL (3.4-5.0); ALBUMIN/GLOBULIN RATIO 0.5 (1.1-1.5); ALKALINE PHOSPHATASE 277 IU/L (46-116); ANION GAP 4 (8-16); ASPARTATE AMINO TRANSFERASE 34 U/L (10-37); BILIRUBIN,TOTAL 0.4 MG/DL (0.1-1.0); BLOOD UREA NITROGEN 63 MG/DL (7-18); BUN/CREATININE RATIO 47.7 (10.0-20.0); CALCIUM 7.8 MG/DL (8.5-10.1); CHLORIDE 102 MMOL/L (99-107); CREATININE 1.32 MG/DL (0.60-1.10); GLUCOSE 206 MG/DL (70-104); POTASSIUM 3.7 MMOL/L (3.5-5.1); SODIUM 147 MMOL/L (135-145); TOTAL PROTEIN 6.2 G/DL (6.4-8.2); TRIGLYCERIDES 63 MG/DL (20-135); eCRCL 59 ML/MIN; eGFR 55 ML/MIN
[2023-12-16 11:58] LABS: MAGNESIUM 1.7 MG/DL (1.5-2.4); PHOSPHORUS 5.3 MG/DL (2.3-4.5)
[2023-12-16] MEDS: diatr meglu/diatrizoate 30ml oral sol.-(3 dose) bottle PO SCH (14:31)
[2023-12-16 17:40] LABS: ABG BASE EXCESS 19.1 mmol/L (-2.0-2.0); ABG HCO3 47.7 mmol/L (22.0-26.0); ABG OXYGEN SATURATION 93.5 % (94-97); ABG PCO2 (T) 87.3 mmHg (35.0-48.0); ABG PH (T) 7.354 (7.340-7.440); ABG PO2 (T) 69.1 mmHg (75.0-100.0); ALLEN'S TEST POSITIVE; FCOHb 1.2 % (0.0-3.9); FHHb 6.4 % (0.0-5.0); FMetHb 0.2 % (0.0-1.5); FO2Hb 92.2 % (94-97); MODE Bipap; PATIENT TEMPERATURE 36.8; TOTAL HEMOGLOBIN 8.9 G/dl (14.0-17.9)
[2023-12-16] MEDS: albuterol 2.5 MG/3 ML nebule NEB PRN (19:52)
[2023-12-17] VITALS (10 sets, daily range): BP systolic 121–134; BP diastolic 66–90; PULSE 79–113; RESP 15–22; TEMP 97.2–98.9; O2SAT 91–98
[2023-12-17 04:14] LABS: BASOPHILS # (AUTO) 0.1 X10'3 (0-0.2); BASOPHILS % (AUTO) 0.5 % (0-1); EOSINOPHILS # (AUTO) 0.2 X10'3 (0-0.9); EOSINOPHILS % (AUTO) 1.3 % (0-6); HEMATOCRIT 25.5 % (42.0-52.0); HEMOGLOBIN 7.6 g/dl (14.0-17.9); LYMPHOCYTES # (AUTO) 0.8 X10'3 (1.1-4.8); LYMPHOCYTES % (AUTO) 4.8 % (21-51); MEAN CORPUSCULAR HEMOGLOBIN 26.7 PG (27.0-31.0); MEAN CORPUSCULAR HGB CONC 29.9 g/dL (33.0-36.5); MEAN CORPUSCULAR VOLUME 89.1 FL (78-98); MEAN PLATELET VOLUME 7.2 FL (7.4-10.4); MONOCYTES # (AUTO) 1.3 X10'3 (0-0.9); MONOCYTES % (AUTO) 7.4 % (2-12); NEUTROPHILS # (AUTO) 15.2 X10'3 (1.8-7.7); PLATELET COUNT 318 X10'3 (140-440); RED BLOOD COUNT 2.86 X10'6 (4.70-6.10); RED CELL DISTRIBUTION WIDTH 19.4 % (11.5-14.5); WHITE BLOOD COUNT 17.7 X10'3 (4.5-11.0)
[2023-12-17 04:24] LABS: ALANINE AMINOTRANSFERASE 36 U/L (12-78); ALBUMIN 2.2 G/DL (3.4-5.0); ALBUMIN/GLOBULIN RATIO 0.5 (1.1-1.5); ALKALINE PHOSPHATASE 291 IU/L (46-116); ANION GAP 1 (8-16); ASPARTATE AMINO TRANSFERASE 27 U/L (10-37); BILIRUBIN,TOTAL 0.5 MG/DL (0.1-1.0); BLOOD UREA NITROGEN 58 MG/DL (7-18); BUN/CREATININE RATIO 47.2 (10.0-20.0); CALCIUM 7.9 MG/DL (8.5-10.1); CHLORIDE 102 MMOL/L (99-107); CREATININE 1.23 MG/DL (0.60-1.10); GLUCOSE 210 MG/DL (70-104); MAGNESIUM 1.7 MG/DL (1.5-2.4); PHOSPHORUS 4.3 MG/DL (2.3-4.5); POTASSIUM 3.6 MMOL/L (3.5-5.1); SODIUM 147 MMOL/L (135-145); TOTAL PROTEIN 6.5 G/DL (6.4-8.2); eCRCL 63 ML/MIN; eGFR 60 ML/MIN
[2023-12-17 04:31] LABS: TOTAL CARBON DIOXIDE 44.4 MMOL/L (24-32)
[2023-12-17 04:51] LABS: ANISOCYTOSIS 2+; ELLIPTOCYTES FEW; HYPOCHROMASIA 1+; PLATELET ESTIMATE NORMAL; POLYCHROMASIA FEW; STOMATOCYTES 1+; TEAR DROP CELLS FEW; TOTAL CELLS COUNTED 100
[2023-12-17] MEDS ORDERED: oxyCODONE/APAP 5-325mg tablet PO PRN (07:55)
[2023-12-17] MEDS: oxyCODONE/APAP 10/325mg tablet PO PRN (08:22)
[2023-12-17] MEDS: pantoprazole 40mg Tablet.DR PO SCH (12:16)
[2023-12-17] MEDS: HYDROmorphone inj. 0.5 MG/0.5 ML DISP.SYRIN IV PRN (16:52)
[2023-12-18] VITALS (10 sets, daily range): BP systolic 118–161; BP diastolic 66–104; PULSE 90–110; RESP 14–20; TEMP 98–98.9; O2SAT 94–99
[2023-12-18 07:31] LABS: BASOPHILS # (AUTO) 0.1 X10'3 (0-0.2); BASOPHILS % (AUTO) 0.8 % (0-1); EOSINOPHILS # (AUTO) 0.3 X10'3 (0-0.9); LYMPHOCYTES # (AUTO) 1.1 X10'3 (1.1-4.8); LYMPHOCYTES % (AUTO) 6.4 % (21-51); MEAN CORPUSCULAR HEMOGLOBIN 26.2 PG (27.0-31.0); MEAN CORPUSCULAR HGB CONC 29.2 g/dL (33.0-36.5); MEAN PLATELET VOLUME 7.4 FL (7.4-10.4); MONOCYTES # (AUTO) 1.6 X10'3 (0-0.9); NEUTROPHILS # (AUTO) 14.2 X10'3 (1.8-7.7); NEUTROPHILS % (AUTO) 81.8 % (42-75); PLATELET COUNT 341 X10'3 (140-440); RED BLOOD COUNT 3.04 X10'6 (4.70-6.10); RED CELL DISTRIBUTION WIDTH 19.5 % (11.5-14.5); WHITE BLOOD COUNT 17.4 X10'3 (4.5-11.0)
[2023-12-18 07:45] LABS: ALANINE AMINOTRANSFERASE 44 U/L (12-78); ALBUMIN 2.4 G/DL (3.4-5.0); ALBUMIN/GLOBULIN RATIO 0.5 (1.1-1.5); ALKALINE PHOSPHATASE 309 IU/L (46-116); ANION GAP 3 (8-16); ASPARTATE AMINO TRANSFERASE 37 U/L (10-37); BILIRUBIN,TOTAL 0.6 MG/DL (0.1-1.0); BLOOD UREA NITROGEN 63 MG/DL (7-18); BUN/CREATININE RATIO 52.5 (10.0-20.0); CALCIUM 8.4 MG/DL (8.5-10.1); CHLORIDE 100 MMOL/L (99-107); GLUCOSE 114 MG/DL (70-104); MAGNESIUM 1.8 MG/DL (1.5-2.4); SODIUM 145 MMOL/L (135-145); TOTAL PROTEIN 6.8 G/DL (6.4-8.2); eCRCL 65 ML/MIN; eGFR 62 ML/MIN
[2023-12-18 07:49] LABS: TOTAL CARBON DIOXIDE 41.8 MMOL/L (24-32)
[2023-12-18 08:06] LABS: HEMOGLOBIN 8.2 g/dl (14.0-17.9)
[2023-12-18 08:07] LABS: HEMATOCRIT 26.8 % (42.0-52.0); MEAN CORPUSCULAR VOLUME 87.6 FL (78-98)
[2023-12-18 08:34] LABS: ANISOCYTOSIS 2+; PLATELET ESTIMATE NORMAL; TOTAL CELLS COUNTED 100
[2023-12-18 08:35] LABS: ELLIPTOCYTES FEW
[2023-12-18] MEDS: metoprolol tartrate 50mg tablet PO ONE (10:52)
[2023-12-18] MEDS: metoprolol tartrate 25mg tablet PO ONE (10:52)
[2023-12-18] MEDS: ondansetron/PF 4mg/2ml inj IV PRN (12:08)
[2023-12-18] MEDS: HYDROmorphone 1 mg/ml syringe IV PRN (12:09)
[2023-12-18] MEDS: metoprolol tartrate 25mg tablet PO SCH (19:57)
[2023-12-19] VITALS (16 sets, daily range): BP systolic 96–118; BP diastolic 52–68; PULSE 70–98; RESP 16–20; TEMP 97.8–98.6; O2SAT 92–99
[2023-12-19 07:02] LABS: BASOPHILS # (AUTO) 0.2 X10'3 (0-0.2); EOSINOPHILS # (AUTO) 0.2 X10'3 (0-0.9); EOSINOPHILS % (AUTO) 1.5 % (0-6); HEMATOCRIT 23.8 % (42.0-52.0); HEMOGLOBIN 7.1 g/dl (14.0-17.9); LYMPHOCYTES # (AUTO) 0.9 X10'3 (1.1-4.8); LYMPHOCYTES % (AUTO) 5.6 % (21-51); MEAN CORPUSCULAR HEMOGLOBIN 26.8 PG (27.0-31.0); MEAN CORPUSCULAR HGB CONC 29.9 g/dL (33.0-36.5); MEAN CORPUSCULAR VOLUME 89.5 FL (78-98); MEAN PLATELET VOLUME 7.5 FL (7.4-10.4); MONOCYTES # (AUTO) 1.3 X10'3 (0-0.9); MONOCYTES % (AUTO) 7.9 % (2-12); NEUTROPHILS # (AUTO) 13.3 X10'3 (1.8-7.7); PLATELET COUNT 309 X10'3 (140-440); RED BLOOD COUNT 2.66 X10'6 (4.70-6.10); RED CELL DISTRIBUTION WIDTH 19.7 % (11.5-14.5); WHITE BLOOD COUNT 15.9 X10'3 (4.5-11.0)
[2023-12-19 07:29] LABS: ALANINE AMINOTRANSFERASE 35 U/L (12-78); ALBUMIN 2.2 G/DL (3.4-5.0); ALBUMIN/GLOBULIN RATIO 0.6 (1.1-1.5); ALKALINE PHOSPHATASE 281 IU/L (46-116); ASPARTATE AMINO TRANSFERASE 23 U/L (10-37); BILIRUBIN,TOTAL 0.5 MG/DL (0.1-1.0); BLOOD UREA NITROGEN 71 MG/DL (7-18); BUN/CREATININE RATIO 53.8 (10.0-20.0); CALCIUM 8.4 MG/DL (8.5-10.1); CHLORIDE 101 MMOL/L (99-107); CREATININE 1.32 MG/DL (0.60-1.10); GLUCOSE 155 MG/DL (70-104); MAGNESIUM 1.9 MG/DL (1.5-2.4); PHOSPHORUS 5.9 MG/DL (2.3-4.5); POTASSIUM 4.3 MMOL/L (3.5-5.1); SODIUM 145 MMOL/L (135-145); TOTAL PROTEIN 6.2 G/DL (6.4-8.2); TRIGLYCERIDES 77 MG/DL (20-135); eCRCL 59 ML/MIN; eGFR 55 ML/MIN
[2023-12-19 07:48] LABS: ANION GAP -3 (8-16)
[2023-12-19 07:52] LABS: TOTAL CARBON DIOXIDE 47.2 MMOL/L (24-32)
[2023-12-19 08:34] LABS: ABG HCO3 44.4 mmol/L (22.0-26.0); ABG OXYGEN SATURATION 97.8 % (94-97); ABG PCO2 (T) 97.7 mmHg (35.0-48.0); ABG PH (T) 7.275 (7.340-7.440); ABG PO2 (T) 106.4 mmHg (75.0-100.0); ALLEN'S TEST POSITIVE; FCOHb 1.2 % (0.0-3.9); FHHb 2.2 % (0.0-5.0); FLOW 2 L/min; FMetHb 0.1 % (0.0-1.5); FO2Hb 96.5 % (94-97); MODE NASAL CANNULA; TOTAL HEMOGLOBIN 8.5 G/dl (14.0-17.9)
[2023-12-19] MEDS ORDERED: potassium Cl 40MEQ/1/2NS 520ml 520 ML IV PRN (09:00)
[2023-12-19] MEDS: ZINC IV SCH (11:56)
[2023-12-19] MEDS: CHROMIC CHLORIDE IV SCH (11:56)
[2023-12-19] MEDS: SELENIUM IV SCH (11:56)
[2023-12-19] MEDS: [UNRECOGNIZED DRUG - OTHER] IV SCH (11:56)
[2023-12-19] MEDS: MANGANESE IV SCH (11:56)
[2023-12-19] MEDS: COPPER IV SCH (11:56)
[2023-12-19] MEDS: LidoCAINE 2% Topical Jelly 11mL syringe TOP ONE (21:52)
[2023-12-20] VITALS (13 sets, daily range): BP systolic 96–116; BP diastolic 58–78; PULSE 80–101; RESP 13–18; TEMP 98.1–98.7; O2SAT 92–98
[2023-12-20 01:08] LABS: HEMATOCRIT 26.7 % (42.0-52.0); MEAN CORPUSCULAR HEMOGLOBIN 26.8 PG (27.0-31.0); MEAN CORPUSCULAR HGB CONC 30.1 g/dL (33.0-36.5); MEAN CORPUSCULAR VOLUME 89.1 FL (78-98); PLATELET COUNT 321 X10'3 (140-440); RED BLOOD COUNT 2.99 X10'6 (4.70-6.10); RED CELL DISTRIBUTION WIDTH 19.8 % (11.5-14.5); WHITE BLOOD COUNT 19.3 X10'3 (4.5-11.0)
[2023-12-20 06:42] LABS: BASOPHILS # (AUTO) 0.2 X10'3 (0-0.2); BASOPHILS % (AUTO) 0.8 % (0-1); EOSINOPHILS # (AUTO) 0.2 X10'3 (0-0.9); HEMATOCRIT 26.8 % (42.0-52.0); HEMOGLOBIN 8.2 g/dl (14.0-17.9); LYMPHOCYTES # (AUTO) 0.9 X10'3 (1.1-4.8); LYMPHOCYTES % (AUTO) 4.3 % (21-51); MEAN CORPUSCULAR HGB CONC 30.7 g/dL (33.0-36.5); MEAN CORPUSCULAR VOLUME 88.1 FL (78-98); MEAN PLATELET VOLUME 7.6 FL (7.4-10.4); MONOCYTES # (AUTO) 1.5 X10'3 (0-0.9); MONOCYTES % (AUTO) 7.6 % (2-12); NEUTROPHILS # (AUTO) 17.4 X10'3 (1.8-7.7); NEUTROPHILS % (AUTO) 86.3 % (42-75); PLATELET COUNT 355 X10'3 (140-440); RED BLOOD COUNT 3.04 X10'6 (4.70-6.10); RED CELL DISTRIBUTION WIDTH 19.8 % (11.5-14.5); WHITE BLOOD COUNT 20.2 X10'3 (4.5-11.0)
[2023-12-20 07:04] LABS: ALANINE AMINOTRANSFERASE 31 U/L (12-78); ALBUMIN 2.4 G/DL (3.4-5.0); ALBUMIN/GLOBULIN RATIO 0.6 (1.1-1.5); ALKALINE PHOSPHATASE 283 IU/L (46-116); ANION GAP 5 (8-16); ASPARTATE AMINO TRANSFERASE 16 U/L (10-37); BILIRUBIN,TOTAL 0.4 MG/DL (0.1-1.0); BLOOD UREA NITROGEN 80 MG/DL (7-18); BUN/CREATININE RATIO 48.2 (10.0-20.0); CALCIUM 8.4 MG/DL (8.5-10.1); CHLORIDE 97 MMOL/L (99-107); CREATININE 1.66 MG/DL (0.60-1.10); GLUCOSE 106 MG/DL (70-104); MAGNESIUM 1.7 MG/DL (1.5-2.4); PHOSPHORUS 4.4 MG/DL (2.3-4.5); POTASSIUM 3.9 MMOL/L (3.5-5.1); SODIUM 141 MMOL/L (135-145); TOTAL CARBON DIOXIDE 38.9 MMOL/L (24-32); TOTAL PROTEIN 6.5 G/DL (6.4-8.2); eCRCL 47 ML/MIN; eGFR 42 ML/MIN
[2023-12-20 07:40] LABS: TOTAL CELLS COUNTED 100
[2023-12-20 07:41] LABS: ANISOCYTOSIS 2+; PLATELET ESTIMATE NORMAL
[2023-12-20 07:42] LABS: HYPOCHROMASIA 1+; POLYCHROMASIA 1+
[2023-12-20 07:43] LABS: ELLIPTOCYTES FEW; TEAR DROP CELLS FEW
[2023-12-20] MEDS: normal saline 1000ml 1,000 ML IV SCH (14:46)
[2023-12-21] VITALS (9 sets, daily range): BP systolic 106–118; BP diastolic 62–78; PULSE 76–89; RESP 18–21; TEMP 97.6–98.7; O2SAT 95–100
[2023-12-21 06:22] LABS: BASOPHILS # (AUTO) 0.1 X10'3 (0-0.2); BASOPHILS % (AUTO) 0.9 % (0-1); EOSINOPHILS # (AUTO) 0.2 X10'3 (0-0.9); EOSINOPHILS % (AUTO) 1.4 % (0-6); HEMATOCRIT 25.3 % (42.0-52.0); HEMOGLOBIN 7.8 g/dl (14.0-17.9); LYMPHOCYTES # (AUTO) 0.9 X10'3 (1.1-4.8); LYMPHOCYTES % (AUTO) 6.7 % (21-51); MEAN CORPUSCULAR HEMOGLOBIN 26.8 PG (27.0-31.0); MEAN CORPUSCULAR HGB CONC 30.7 g/dL (33.0-36.5); MEAN CORPUSCULAR VOLUME 87.4 FL (78-98); MEAN PLATELET VOLUME 7.5 FL (7.4-10.4); MONOCYTES % (AUTO) 7.3 % (2-12); NEUTROPHILS # (AUTO) 11.8 X10'3 (1.8-7.7); NEUTROPHILS % (AUTO) 83.7 % (42-75); PLATELET COUNT 318 X10'3 (140-440); RED BLOOD COUNT 2.89 X10'6 (4.70-6.10); RED CELL DISTRIBUTION WIDTH 19.2 % (11.5-14.5); WHITE BLOOD COUNT 14.1 X10'3 (4.5-11.0)
[2023-12-21 06:35] LABS: ALANINE AMINOTRANSFERASE 27 U/L (12-78); ALBUMIN 2.3 G/DL (3.4-5.0); ALBUMIN/GLOBULIN RATIO 0.6 (1.1-1.5); ALKALINE PHOSPHATASE 265 IU/L (46-116); ANION GAP 2 (8-16); ASPARTATE AMINO TRANSFERASE 16 U/L (10-37); BILIRUBIN,TOTAL 0.4 MG/DL (0.1-1.0); BLOOD UREA NITROGEN 79 MG/DL (7-18); BUN/CREATININE RATIO 54.5 (10.0-20.0); CALCIUM 8.2 MG/DL (8.5-10.1); CHLORIDE 98 MMOL/L (99-107); CREATININE 1.45 MG/DL (0.60-1.10); GLUCOSE 166 MG/DL (70-104); MAGNESIUM 1.4 MG/DL (1.5-2.4); PHOSPHORUS 2.6 MG/DL (2.3-4.5); POTASSIUM 3.4 MMOL/L (3.5-5.1); SODIUM 139 MMOL/L (135-145); TOTAL CARBON DIOXIDE 39.3 MMOL/L (24-32); TOTAL PROTEIN 6.3 G/DL (6.4-8.2); eCRCL 54 ML/MIN; eGFR 49 ML/MIN
[2023-12-21 07:50] LABS: ANISOCYTOSIS 2+; HYPOCHROMASIA 1+; PLATELET ESTIMATE NORMAL; TOTAL CELLS COUNTED 100
[2023-12-21 07:51] LABS: ELLIPTOCYTES 1+; POLYCHROMASIA FEW; SCHISTOCYTES FEW
== END 2023-12-21 20:13 | DRG 329 ==
LOC: ER 20:11 → ED HOLD 11-12 02:46 → UNDOADMIN 11-12 02:46 → ED HOLD 11-12 06:03 → UNDOADMIN 11-12 06:03 → ED HOLD 11-13 06:03 → EDBEDREQ 11-13 20:19 → ORTHO 4S 11-13 21:50 → ED HOLD 11-13 21:50 → PCU 3S 12-15 16:18
PROVIDERS: ADMIT Family Medicine; ATTEND Internal Medicine
PROC: C7101ZZ Planar Nuclear Medicine Imaging of Bone Marrow using Technetium 99m (Tc-99m) (ICD-10-PCS; 2023-11-14)
PROC: 0TCB8ZZ Extirpation of Matter from Bladder, Via Natural or Artificial Opening Endoscopic (ICD-10-PCS; principal; 2023-11-14 14:32)
PROC: 0D1B0Z4 Bypass Ileum to Cutaneous, Open Approach (ICD-10-PCS; 2023-11-14 14:32)
PROC: 05HC33Z Insertion of Infusion Device into Left Basilic Vein, Percutaneous Approach (ICD-10-PCS; 2023-11-18)
PROC: B54NZZA Ultrasonography of Left Upper Extremity Veins, Guidance (ICD-10-PCS; 2023-11-18)
PROC: BW211ZZ Computerized Tomography (CT Scan) of Abdomen and Pelvis using Low Osmolar Contrast (ICD-10-PCS; 2023-12-01)
PROC: 02HV33Z Insertion of Infusion Device into Superior Vena Cava, Percutaneous Approach (ICD-10-PCS; 2023-12-03)
PROC: B548ZZA Ultrasonography of Superior Vena Cava, Guidance (ICD-10-PCS; 2023-12-03)
PROC: 0HB9XZZ Excision of Perineum Skin, External Approach (ICD-10-PCS; 2023-12-04)
PROC: BW211ZZ Computerized Tomography (CT Scan) of Abdomen and Pelvis using Low Osmolar Contrast (ICD-10-PCS; 2023-12-09)
PROC: 0F903ZZ Drainage of Liver, Percutaneous Approach (ICD-10-PCS; 2023-12-10)
PROC: C71 Nuclear Medicine, Lymphatic and Hematologic System, Planar Nuclear Medicine Imaging (ICD-10-PCS; 2023-12-10)
PROC: 30233N1 Transfusion of Nonautologous Red Blood Cells into Peripheral Vein, Percutaneous Approach (ICD-10-PCS; 2023-12-12)
PROC: 5A09357 Assistance with Respiratory Ventilation, Less than 24 Consecutive Hours, Continuous Positive Airway Pressure (ICD-10-PCS; 2023-12-15)
PROC: 5A09357 Assistance with Respiratory Ventilation, Less than 24 Consecutive Hours, Continuous Positive Airway Pressure (ICD-10-PCS; 2023-12-16)
DX: K94.09 Other complications of colostomy (principal); E43 Unspecified severe protein-calorie malnutrition; I50.23 Acute on chronic systolic (congestive) heart failure; N17.0 Acute kidney failure with tubular necrosis; J96.02 Acute respiratory failure with hypercapnia; J96.01 Acute respiratory failure with hypoxia; I48.20 Chronic atrial fibrillation, unspecified; N13.6 Pyonephrosis; N18.4 Chronic kidney disease, stage 4 (severe); E87.20 Acidosis, unspecified; I13.0 Hypertensive heart and chronic kidney disease with heart failure and stage 1 through stage 4 chronic kidney disease, or unspecified chronic kidney disease; K56.7 Ileus, unspecified; E87.0 Hyperosmolality and hypernatremia; K94.03 Colostomy malfunction; B37.2 Candidiasis of skin and nail; D64.9 Anemia, unspecified; I95.89 Other hypotension; G89.4 Chronic pain syndrome; K21.9 Gastro-esophageal reflux disease without esophagitis; K80.20 Calculus of gallbladder without cholecystitis without obstruction; L89.159 Pressure ulcer of sacral region, unspecified stage; L89.329 Pressure ulcer of left buttock, unspecified stage; E87.5 Hyperkalemia; J44.9 Chronic obstructive pulmonary disease, unspecified; I25.10 Atherosclerotic heart disease of native coronary artery without angina pectoris; E11.22 Type 2 diabetes mellitus with diabetic chronic kidney disease; F32.A Depression, unspecified; G47.00 Insomnia, unspecified; Y83.3 Surgical operation with formation of external stoma as the cause of abnormal reaction of the patient, or of later complication, without mention of misadventure at the time of the procedure; N21.0 Calculus in bladder; N40.0 Benign prostatic hyperplasia without lower urinary tract symptoms; Z95.5 Presence of coronary angioplasty implant and graft; Z91.199 Patient's noncompliance with other medical treatment and regimen due to unspecified reason; Z88.1 Allergy status to other antibiotic agents; Z88.0 Allergy status to penicillin; Z87.442 Personal history of urinary calculi; Z79.891 Long term (current) use of opiate analgesic; Z79.01 Long term (current) use of anticoagulants; Z88.5 Allergy status to narcotic agent; Z88.8 Allergy status to other drugs, medicaments and biological substances; Z79.899 Other long term (current) drug therapy; Y92.89 Other specified places as the place of occurrence of the external cause; Z68.26 Body mass index [BMI] 26.0-26.9, adult
CPT/HCPCS: 36569; 49405; 93306; 96361; 96366; 96375; 99285; Z7506; Z7508; 36415; 36430; 36600; 71045; 74018; 74176; 74177; 74178; 76770; 76937; 76942; 78802; 80047; 80048; 80053; 80202; 81001; 82803; 82948; 83036; 83605; 83690; 83735; 83880; 84100; 84132; 84134; 84145; 84443; 84478; 84484; 85007; 85018; 85025; 85027; 85610; 85730; 86140; 86703; 86885; 86900; 86901; 86920; 87040; 87070; 87081; 87088; 89051; 93005; 94640; 94660; 94760; 94799; 97110; 97116; 97161; 97530; 97535; A4314; A4333; A4340; A4349; A4371; A4398; A4402; A4421; A4615; A4618; A4649; A5200; A6154; A6209; A6212; A6213; A6222; A6223; A6243; A6250; A6253; A6258; A6260; A6446; A6449; A7000; A9570; C1751; C1758; C1769; C9113; G0378; J0131; J0692; J0744; J0780; J1100; J1170; J1200; J1644; J1815; J1940; J2060; J2175; J2185; J2250; J2270; J2405; J2704; J2710; J2765; J3010; J3370; J3475; J3480; J3490; J7030; J7040; J7042; J7050; J7060; J7120; P9016; Q0163; Q9963; Q9967